=== PATIENT | female | born 1980 | race Caucasian/White ===

== ENCOUNTER → 2019-11-22 13:36 | Outpatient (CLI) | payer MEDICAID, SELFPAY ==
[2019-11-23 08:38] LABS: Covid-19 Nasal PCR Sendout UK Not Detected
== END ==
PROVIDERS: Visit Provider Nurse Practitioner Family
DX: Z03.818 Encounter for observation for suspected exposure to other biological agents ruled out (principal)
CPT/HCPCS: U0003

== ENCOUNTER → 2021-03-28 16:28 | Outpatient (CLI) | payer MEDICAID, SELFPAY | PROVIDERS: Visit Provider Nurse Practitioner | DX: Z20.822 Contact with and (suspected) exposure to COVID-19 (principal) | CPT/HCPCS: C9803; U0003; U0005 ==

== ENCOUNTER 2023-06-16 03:03 | Emergency (ER) | payer MEDICAID, SELFPAY ==
[2023-06-16 03:05] VITALS: BP 128/82; PULSE 61; RESP 20; TEMP 36.4; O2SAT 97; BMI 38.4
[2023-06-16 03:09] VITALS: BP 128/82; PULSE 71; O2SAT 96
--- NOTE | 2023-06-16 03:16 | HMH.EDGENADL ---
Discharge Plan Disposition Patient Disposition: Xfer Short-Term Hosp Condition: Good Referrals Follow up/Referrals: Provider,Referral, MD [Primary Care Provider] - See instructions Activity Restrictions/Add. Instructions Additional Instructions/Restrictions: You were evaluated in the emergency department today. Please proceed directly to [facility] [place] emergency department. You will be evaluated in the emergency department there. Address is [address] [place] [address] Clinical Impressions Clinical Impression: Calculus of right ureter Discharge ED Provider: Concepción Johnson General Adult HPI General Chief complaint: Abdominal Pain Stated complaint: pain right side to back, nausea Time Seen by Provider: 06/16/23 03:10 History of Present Illness HPI narrative: This patient is a 43-year-old female who reports a history of prior hysterectomy and oophorectomy secondary to ovarian cancer presenting to the emergency department with concern for severe right lower quadrant pain radiating to her back as well as nausea that woke her up from sleep along prior to arrival. She also complains of chills. She states it is constant, not positional, and nothing seems to make it better. It gets worse with walking. She was fine last night when she went to bed. No fevers, vomiting, changes in bowel movements, or urinary symptoms. Related Data Allergies Allergy/AdvReac Type Severity Reaction Status Date / Time INGREDIENT: NO KNOWN - NO Allergy Unknown Uncoded 02/27/17 14:34 KNOWN DRUG ALLERGY [facility] Disclaimer: The information contained in this section may have been updated after the patient was seen, as this information can be updated by other users. Social History Smoking Status: Current every day smoker alcohol intake: never current occupational status: employed Travel in the last 8 weeks: None ROS Obtained: Yes All systems reviewed & no additional complaints except as documented Physical Exam General General appearance: alert, in no apparent distress and obese Head Head exam: atraumatic and normocephalic Eye Eye exam: Present normal appearance, PERRL and EOMI ENT ENT exam: Present normal exam, normal oropharynx, mucous membranes moist and normal external ear exam Neck Neck exam: Present normal inspection, full ROM and trachea midline; Absent tenderness Chest Chest inspection: Present normal inspection and symmetric chest wall rise; Absent tenderness Respiratory Respiratory exam: Present normal lung sounds bilaterally; Absent respiratory distress, wheezes, stridor or accessory muscle use Cardiovascular Cardiovascular exam: Present regular rate and normal rhythm Abdominal Exam Abdominal exam: Present soft, tenderness (Right lower quadrant) and normal bowel sounds; Absent distention, guarding, rebound or rigidity Extremities Exam Extremities exam: Present normal inspection, full ROM and normal capillary refill; Absent tenderness or edema Back Exam Back exam: Present full ROM and CVA tenderness (R) Neurological Exam Neurological exam: Present alert, oriented X3, CN II-XII intact and normal gait; Absent motor sensory deficit Psychiatric Psychiatric exam: Present normal affect and normal mood Skin Skin exam: Present warm and dry Medical Decision Making Medical Records Medical records reviewed: Yes I reviewed the patient's medical records. Paul Inquiry Pt receiving controlled substance: No Vital Signs: 06/16/23 03:05 06/16/23 03:09 06/16/23 03:56 Temperature 97.6 F Temperature Source Oral Pulse Rate 71 74 Pulse Rate [Left] 61 Respiratory Rate 20 Blood Pressure 128/82 127/68 Blood Pressure [Right Arm] 128/82 Blood Pressure Mean [Right Arm] 97 Blood Pressure Source [Right Arm] Automatic Cuff Blood Pressure Position [Right Arm] Supine 02 Sat by Pulse Oximetry 97 96 99 Oxygen Delivery Method Room Air 06/16/23 04:30 06/16/23 05:00 Temperature Temperature Source Pulse Rate 63 63 Pulse Rate [Left] Respiratory Rate Blood Pressure 138/77 135/75 Blood Pressure [Right Arm] Blood Pressure Mean [Right Arm] Blood Pressure Source [Right Arm] Blood Pressure Position [Right Arm] 02 Sat by Pulse Oximetry 98 98 Oxygen Delivery Method Lab Data Lab results reviewed: Yes I reviewed the patient's lab results. Lab Results 06/16/23 03:32: Urine Color Brown, Urine Appearance Turbid, Urine pH 6.0, Ur Specific [place] >= 1.030, Urine Protein 1+, Urine Glucose (UA) Negative, Urine Ketones Trace, Urine Blood 3+, Urine Nitrate Positive, Urine Bilirubin 1+ A, Urine Urobilinogen 1.0, Ur Leukocyte Esterase Negative, Urine RBC Tntc, Urine WBC 3-5, Ur Squamous Epith Cells 5-10, Urine Bacteria 3+ 06/16/23 03:50: WBC 7.8, RBC 4.61, Hgb 13.0, Hct 41.0, MCV 88.8, MCH 28.2, MCHC 31.7 L, RDW 15.7, Plt Count 198, MPV 8.1, Neut % (Auto) 63.7, Lymph % (Auto) 28.8, Greene % (Auto) 4.3, Eos % (Auto) 2.2, Baso % (Auto) 0.9, Neut # (Auto) 4.9, Lymph # (Auto) 2.2, Greene # (Auto) 0.3, Eos # (Auto) 0.2, Baso # (Auto) 0.1, Sodium 140, Potassium 3.5, Chloride 110 H, Carbon Dioxide 27, Anion Gap 6.5, BUN 12, Creatinine 0.80, Estimated Creat Clear 165, Estimated GFR 78, Est GFR ( Amer) 94, Glucose 137 H, Calcium 9.0, Total Bilirubin 0.3, AST 30, ALT 32, Alkaline Phosphatase 108, Total Protein 6.4, Albumin 3.7, Globulin 2.7, Albumin/Globulin Ratio 1.4 06/16/23 03:50 06/16/23 03:50 Orders (Tests/Meds): ED MEDICATIONS Generic Name Dose Route Start Last Admin Trade Name Freq PRN Reason Stop Dose Admin Ondansetron HCl 4 mg 06/16/23 05:44 Ondansetron 4mg Odt SL 06/16/23 05:45 ONCE ONE Oxycodone HCl 10 mg 06/16/23 05:44 Oxycodone 5mg Immediate Release Tablet PO 06/16/23 05:45 ONCE ONE Discontinued Medications Generic Name Dose Route Start Last Admin Trade Name Freq PRN Reason Stop Dose Admin Acetaminophen 1,000 mg 06/16/23 03:14 06/16/23 03:28 Acetaminophen 1,000mg/100ml Vial IV 06/16/23 03:15 1,000 mg ONCE ONE Administration Lactated Ringer's 1,000 mls @ 999 mls/hr 06/16/23 03:14 06/16/23 03:28 Lactated Ringer's 1000 Ml Bag IV 06/16/23 04:14 999 mls/hr .Q1H1M ONE Administration Ketorolac Tromethamine 15 mg 06/16/23 03:14 06/16/23 03:27 Ketorolac 30mg/Ml Vial IV 06/16/23 03:15 15 mg ONCE ONE Administration Morphine Sulfate 4 mg 06/16/23 03:52 06/16/23 03:57 Morphine 4mg/Ml Syringe IV 06/16/23 03:53 4 mg ONCE ONE Administration Ondansetron HCl 4 mg 06/16/23 03:15 06/16/23 03:28 Ondansetron 4mg/2ml Vial IV 06/16/23 03:16 4 mg ONCE ONE Administration ORDERS Category Date Time Status CT abdomen pelvis wo con Stat Cat Scan 06/16/23 03:31 Completed Complete Blood Count Auto Diff Stat Lab 06/16/23 03:50 Completed Comprehensive Metabolic Panel Stat Lab 06/16/23 03:50 Completed Urinalysis and Microscopic Stat Lab 06/16/23 03:32 Completed Urine Culture Stat Micro 06/16/23 03:32 Received Medical Decision Narrative: In summary, this patient is a 43-year-old female presenting to the Emergency Department for evaluation of right lower quadrant pain radiating to her right back. Differential diagnoses considered include but are not limited to appendicitis, ureterolithiasis, pyelonephritis, colitis, constipation. Ruling out the most morbid conditions drove assessment. On exam, the patient is uncomfortable appearing with right-sided abdominal and CVA tenderness. Vitals are normal on cardiac telemetry. Workup included CBC, CMP, urinalysis, and CT scan of the abdomen pelvis. She was given a bolus of IV fluids as well as IV Toradol, acetaminophen, and Zofran for symptomatic improvement. I independently interpreted CT scan prior to the radiologist read and noted concern for proximal right ureteral stone with hydronephrosis. I measured at 6 mm. I also noted a large hypoechoic liver lesion. Please see their read for final interpretation. labs were obtained that demonstrated no leukocytosis, normal creatinine. Patient has 3+ blood in her urine. She does have positive nitrates, however urine is contaminated with 5-10 squamous cells. Leukocyte esterase negative. Urine culture was sent and is pending. On reassessment, patient had minimal improvement after administration of images above. She was then given IV morphine. This did control her pain briefly, but then she had significant recurrence of pain and was very uncomfortable again. At this time, decision was made to order oral oxycodone 10 mg as well as oral Zofran and ODT. Overall, patient has a large proximal stone with significant symptoms. We do not have urology here, so we called [facility] to see about arranging close management for the patient. They advised they do not have urology coverage until Sunday. Given this, we called [facility] who advised that they could accept the patient to the ED for evaluation. I had an interactive discussion with Dr. Rodríguez who is the accepting provider. Patient is nontoxic and has reassuring vital signs. I advised her that we could send her to [facility] by ambulance for further evaluation and management so that she can be monitored and could receive fluids and medications as needed during transport, however she advised that she would rather go personal vehicle. Her is going to drive her. She understands the risks of delaying transfer and was instructed to proceed directly there. I advised that she remain NPO. Patient left the ED in stable condition with plan to proceed directly to [facility] emergency department. Critical Care Critical Care Time Critical Care Time: No
[2023-06-16] MEDS: KETOROLAC 30MG/ML VIAL 15 MG IV (03:27)
[2023-06-16] MEDS: ACETAMINOPHEN 1,000MG/100ML VIAL 1000 MG IV (03:28)
[2023-06-16] MEDS: LACTATED RINGERS 1000ML 1,000 ML 999 ML IV (03:28)
[2023-06-16] MEDS: ONDANSETRON 4MG/2ML VIAL 4 MG IV (03:28)
--- NOTE | 2023-06-16 03:31 | CT_ITS ---
PROCEDURE INFORMATION: Exam: CT Abdomen And Pelvis Without Contrast Exam date and time: 06/16/2023 3:41 AM Age: 43 years old Clinical indication: Abdominal pain; Flank; Right lower quadrant (rlq); Additional info: R flank/rlq pain TECHNIQUE: Imaging protocol: Computed tomography of the abdomen and pelvis without contrast. Radiation optimization: All CT scans at this facility use at least one of these dose optimization techniques: automated exposure control; mA and/or kV adjustment per patient size (includes targeted exams where dose is matched to clinical indication); or iterative reconstruction. COMPARISON: No relevant prior studies available. FINDINGS: Lungs: Bibasilar scarring/atelectasis. Pleural spaces: Sequela of pleural granulomatous disease. Heart: Base of heart is unremarkable as visualized. Liver: Multiple large hepatic hypodensities with regions measuring slightly above water, for example series 1002, image 37. Largest hypodensity measures 11.3 x 5.3 x 8.9 cm (series 3, image 22; series 1002, image 37). Gallbladder and bile ducts: Cholelithiasis without evidence for cholecystitis. Pancreas: Normal. No ductal dilation. Spleen: Incidental splenule is noted. Ill-defined hypodensities within the spleen, measuring slightly above water, largest measures 4.7 x 6.8 cm. Adrenal glands: Normal. No mass. Kidneys and ureters: Benign right renal cyst. Punctate nonobstructive posterior cortex right lower renal pole nephrolith. There is moderate right hydronephrosis. Just beyond the right ureteropelvic junction there is a calcified 6 mm stone (series 3, image 60). Stomach and bowel: Mild colonic diverticulosis without evidence of diverticulitis. Appendix: No evidence of appendicitis. Intraperitoneal space: Unremarkable. No free air. No significant fluid collection. Vasculature: Multiple pelvic phleboliths are noted. Lymph nodes: Unremarkable. No enlarged lymph nodes. Urinary bladder: Urinary bladder is decompressed. Reproductive: Status post hysterectomy. Bones/joints: Mild scattered degenerative change of the visualized osseous structures. Soft tissues: Unremarkable. IMPRESSION: 1. Obstructing proximal right renal stone at the right ureteropelvic junction with upstream moderate hydronephrosis. 2. Hypodensities of the liver and spleen, without aggressive features, however recommend multiphase examination (MRI versus CT) for definitive characterization. 3. Additional nonacute findings as above. COMMENTS: Consistent with the [place] [employer]'s Incidental Findings Committee white paper (J Am Shant Radiol 2018): Any incidental renal lesion less than 1 cm or classified as too small to characterize, or any incidental cystic renal lesion characterized as simple-appearing, is likely benign. No follow-up imaging is recommended for these lesions per consensus recommendations based on imaging criteria.
[2023-06-16 03:37] LABS: Appearance,Urine TURBID (Clear); Blood, Urine 3+ (Negative); Color,Urine BROWN (Yellow); Glucose,Urine (UA) Negative (Negative); Ketones,Urine TRACE (Negative); Leukocyte Esterase,Urine Negative (Negative); Microscopic, Urine URINE MICROSCOPIC (MICROSCOPIC); Nitrate,Urine POSITIVE (Negative); Protein,Urine 1+ (Negative); Specific Gravity, Urine >= 1.030 (1.005-1.030)
[2023-06-16 03:40] LABS: Bilirubin,Urine 1+ (Negative)
[2023-06-16 03:44] LABS: RBC,Urine TNTC #/hpf (0-3)
[2023-06-16 03:45] LABS: Bacteria,Urine 3+ /lpf
[2023-06-16 03:56] VITALS: BP 127/68; PULSE 74; O2SAT 99
[2023-06-16] MEDS: MORPHINE 4MG/ML SYRINGE 4 MG IV (03:57)
[2023-06-16 04:00] LABS: Basophils # 0.1 K/mm3 (0-0.2); Basophils % 0.9 % (0.1-2.0); Eosinophils # 0.2 K/mm3 (0.0-0.4); Eosinophils % 2.2 % (0.1-12.0); Lymphocytes # 2.2 K/mm3 (0.7-4.5); Lymphocytes % 28.8 % (10-50); Mean Corpuscular HGB Conc 31.7 g/dL (31.8-35.4); Mean Corpuscular Hemoglobin 28.2 pg (27.0-31.2); Mean Corpuscular Volume 88.8 fl (81-99); Mean Platelet Volume 8.1 fl (7.4-10.4); Monocytes # 0.3 K/mm3 (0.1-1.0); Monocytes % 4.3 % (1.7-9.3); Neutrophils # 4.9 K/mm3 (1.8-7.8); Neutrophils % 63.7 % (37.0-80.0); Platelet Count 198 K/mm3 (142-424); Red Blood Count 4.61 M/mm3 (4.20-5.40); Red Cell Distribution Width 15.7 % (11.5-17.5); White Blood Count 7.8 K/mm3 (4.8-10.8)
[2023-06-16 04:06] LABS: Chloride 110 mmol/L (98-107); Potassium 3.5 mmoL/L (3.5-5.1); Sodium 140 mmol/L (136-145)
[2023-06-16 04:08] LABS: Blood Urea Nitrogen 12 mg/dl (7-17); Creatinine Clearance Estimated 165 mL/min (50-200); Estimated Glomerular Filt Rate 78 ml/min (>60); GFR (African American) 94 ML/MIN (>60)
[2023-06-16 04:09] LABS: Alanine Aminotransferase 32 U/L (12-78); Albumin Level 3.7 g/dl (3.5-5.0); Albumin/Globulin Ratio 1.4 (1.1-1.8); Alkaline Phosphatase 108 U/L (38-126); Anion Gap 6.5 mEq/L (5-15); Aspartate Amino Transferase 30 U/L (14-36); Bilirubin,Total 0.3 mg/dl (0.2-1.3); Carbon Dioxide 27 mmol/L (22.0-30.0); Globulin 2.7 g/dL (1.3-3.2); Glucose 137 mg/dl (74-100); Total Protein,Serum 6.4 g/dl (6.3-8.2)
[2023-06-16 04:30] VITALS: BP 138/77; PULSE 63; O2SAT 98
--- NOTE | 2023-06-16 04:59 | PC.NURSE ---
Contacted [facility] in regards to a Urology consult for a follow up appointment.
[2023-06-16 05:00] VITALS: BP 135/75; PULSE 63; O2SAT 98
--- NOTE | 2023-06-16 05:07 | PC.NURSE ---
follow up from previous note [facility] advised they did not have any urology coverage.
--- NOTE | 2023-06-16 05:12 | PC.NURSE ---
Contacted in regards for a urology consult, they advised they would call us back.
--- NOTE | 2023-06-16 05:44 | PC.NURSE ---
on phone with Luciano
[2023-06-16] MEDS: OXYCODONE 5MG IMMEDIATE RELEASE TABLET 10 MG PO (05:51)
[2023-06-16] MEDS: ONDANSETRON 4MG ODT 4 MG SL (05:51)
[2023-06-16 06:01] VITALS: BP 149/79; PULSE 62; RESP 16; TEMP 36.4; O2SAT 98
== END 2023-06-16 06:04 | disposition short-term general hospital (02) ==
PROVIDERS: Emergency Provider Emergency Medicine
DX: N13.0 Hydronephrosis with ureteropelvic junction obstruction (principal); R10.31 Right lower quadrant pain; B96.89 Other specified bacterial agents as the cause of diseases classified elsewhere; R11.0 Nausea; K76.9 Liver disease, unspecified; F17.210 Nicotine dependence, cigarettes, uncomplicated
CPT/HCPCS: 74176; 80053; 81001; 85025; 87086; 96361; 96374; 96375; 99285; J0131; J2405

== ENCOUNTER 2024-10-27 18:41 | Observation (INO) | payer MEDICAID, SELFPAY ==
[2024-10-27] VITALS (7 sets, daily range): BP systolic 125–143; BP diastolic 60–77; PULSE 102–134; RESP 18–32; TEMP 37.3; O2SAT 91–95; BMI 39.9
--- OUTSIDE RECORDS SUMMARY | 2024-10-27 20:18 | XMS_ITS | Clinical Summary ---
Author Organization [facility] Address [address] [place] [address] Care Team Providers Care Astronautical Engineer Name Role Phone Pcp, No Primary Care Provider Unavailabl e Allergies Active Allergy Reactions Criticality Noted Date Comments Carboplatin Nausea,Other - pleas e document in the comment field Low 02/21/2018 sweating, dizzy, diarrhea, shortness of breath Medications ketorolac (Toradol) 10 MG tablet Take 1 tablet (10 mg) by mouth every 6 (six) hours if needed for moderate pain. 20 tablet 06/16/2023 Active Family History Medical History Relation Name Comments Hypertension Father Family history of hypertension Breast cancer Maternal Grandmother FH: br east cancer Throat cancer Other 1 FH: throat can cer Throat cancer Other 2 FH: throat can cer Bone cancer Paternal Grandfather Family history of bone cancer Breast cancer Paternal Grandmother FH: br east cancer Relation Name Status Comments Father Maternal Grandmother Other 1 Other 2 Paternal Grandfather Paternal Grandmother Social History Tobacco Use Types Packs/Day Years Used Date Smoking Tobacco: Every Day Comments Unknown Sex and Gender Information Value Date Recorded Sex Assigned at Not on file Legal Sex Female 7:49 PM EDT Gender Identity Not on file Sexual Orientation Not on file Last Filed Vital Signs Vital Sign Reading Time Taken Comments Blood Pressure 114/64 06/16/2023 12:46 PM EDT Pulse 64 06/16/2023 12:46 PM EDT Temperature 36.3 C (97.4 F) 06/16/2023 12:46 PM EDT Respiratory Rate 20 06/16/2023 12:46 PM EDT Oxygen Saturation 95% 06/16/2023 12:46 PM EDT Inhaled Oxygen Concentration - - Weight 118 kg (260 lb) 06/16/2023 7:07 AM EDT Height 175.3 cm (5' 9 ) 06/16/2023 7:07 AM EDT Body Mass Index 38.4 06/16/2023 7:07 AM EDT Plan of Treatment Health Maintenance Due Date Last Done Comments [facility]-Depression Screening 1978 [facility]-/Child/Adol SDOH Screenings 1978 [facility]-Obesity Intervention 1984 [facility]- SDOH Screenings 1996 [facility]-Adult SDOH Screenings 1996 [facility]-DTaP,Tdap,and Td Vaccine s (1 - Tdap) 1997 [facility]-Hepatitis B Vaccines (1 of 3 - 19+ 3-dose series) 1997 CT Colonography 2023 Colonoscopy 2023 FIT-DNA 2023 FIT 2023 FOBT 2023 Sigmoidoscopy 2023 [facility]-Colorectal Cancer Screening 2023 [id number] Vaccine ( - season) 2023 [facility]-Influenza Vaccine (#1) 2024 [facility]-Zoster Vaccines (1 of 2) 2028 [facility]-Hepatitis C Screening Completed 2017, 11/06/2017 [facility]-HIV Screening Completed 06/16/2023, 12/16/2017 HPV Vaccines Aged Out No longer eligi ble based on patient's age to complete this topic [facility]-HIB Vaccines Aged Out No longer e ligible based on patient's age to complete this topic [facility]-Hepatitis A Vaccines Aged Out No longer eligible based on patient's age to complete this topic [facility]-IPV Vaccines Aged Out No longer e ligible based on patient's age to complete this topic [facility]-Pneumococcal Vaccine: Pediatrics (0 to 5 Years) and At-Risk Patients (6 to 49 Years) Aged Out No longer eligible b ased on patient's age to complete this topic [facility]-Rotavirus Vaccines Aged Out No lo nger eligible based on patient's age to complete this topic Procedures Procedure Name Priority Date/Time Associated Diagnosis Comments ED HIV 1/2 ANTIBODY/ANTIGEN SCREEN WITH REFLEX TO HIV I/II DIFFERENTIATION STAT 06/16/2023 8:03 AM EDT HEPATITIS C ANTIBODY - ED W/REFLEX TO HCV QUANT PCR Routine 12/16/2017 9:07 PM EDT from Last 3 Months or Most Recently Relevant to Health Maintenance Results * ED HIV 1/2 Antibody/Antigen Screen w/Reflex to HIV 1/2 Differentiation (06/16/2023 8:03 AM EDT) HIV 1 & 2 Antibody/Antigen Screen Non Reactive Non Reactive 06/16/2023 9:02 AM EDT [facility] Comment:Screening for HIV 1 & 2 antibodies, and P24 antigen is NONREACTIVE. No confirmatory testing is required. Blood Venous blood specimen / Unknown Venipuncture / Unknown 06/16/2023 8:03 AM EDT 06/16/2023 8:20 AM EDT us Elliott Bravo MD LAB BLOOD ORDERABLES Final Resul t [facility] [address] [place] [address] * Williamson Hepatitis C Antibody (12/16/2017 9:07 PM EDT) [place] Hepatitis C Ab BEING REPEATED TO CONFIRM [facility]QUEST 12/16/2017 9:07 PM EDT 12/16/2017 9:17 PM EDT us Emmanuelle Thomason MD LAB BLOOD ORDERABLES Final Resul t SUNQUEST from Last 3 Months or Most Recently Relevant to Health Maintenance [place] [id number] Care Teams Astronautical Engineer Relationship Specialty Start Date End Date Pcp, [facility] [address] [place] [address] PCP - General Family Medicine 06/16/23
[2024-10-27] MEDS: ONDANSETRON 4MG/2ML VIAL 4 MG IV (20:35)
--- NOTE | 2024-10-27 20:36 | ECG_ITS ---
APPROVED REPORT Exam: Resting ECG HR:131 bpm ECG Measurements Heart Rate 131 AXES NV 122 P 73 QRSd 94 QRS 50 QT 318 T 50 QTc 395 Conclusion SINUS TACHYCARDIA INCOMPLETE RIGHT BUNDLE BRANCH BLOCK [90+ ms QRS DURATION, TERMINAL R IN V1/V2, 40+ ms S IN I/aVL/V4/V5/V6] MINIMAL ST DEPRESSION [0.025+ mV ST DEPRESSION] ABNORMAL RHYTHM ECG UNCONFIRMED REPORT Sinus tachycardia. Incomplete right bundle branch block. No ST elevation or depression. Electronically signed by : JOS REARDON, 10/28/2024 14:45:20
--- NOTE | 2024-10-27 20:38 | ED_ITS ---
Discharge Plan Disposition Patient Disposition: Admitted Clinical Impressions Clinical Impression: Sepsis, Cholelithiasis, Nausea & vomiting, Hyperbilirubinemia Discharge ED Provider: Paulino Kirkpatrick General Adult HPI General Chief complaint: Weakness Stated complaint: sweats,vomiting Time Seen by Provider: 10/27/24 20:24 Mode of Arrival: Ambulatory Source of Information: Patient Description of Symptoms (Recalled from ER Triage Doc. by RN): PATIENT FEELS LIKE SHE IS DEHYDRATED. REPORTS WEAKNESS. HASN'T HAD A BM FOR 3 DAYS. REPORTS RECENT FEVER AND VOMITING. UNABLE TO EAT. 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 Patient states that over the last 2 days, she has had multiple episodes of vomiting and inability to tolerate oral intake. She has tried Pedialyte and water. She denies any chest pain or abdominal pain at this time. She does state that she has not had a bowel movement in 3 days. She denies any dysuria or hematuria. She has not had any fevers that she is aware of. Related Data Allergies Allergy/AdvReac Type Severity Reaction Status Date / Time INGREDIENT: NO KNOWN - NO Allergy Unknown Uncoded 02/27/17 14:34 KNOWN DRUG ALLERGY [facility] Disclaimer: The information contained in this section may have been updated after the patient was seen, as this information can be updated by other users. Social History (Updated 06/16/23 @ 05:49 by Concepción Johnson DO) Smoking Status: Current every day smoker alcohol intake: never current occupational status: employed Travel in the last 8 weeks?: None Have you lived/traveled outside [place] in past 30 days?: No Contact w/someone who lives/traveled outside US past 30 days?: No Exposure to someone with infectious disease in past 14 days?: No Do you have a fever (greater than 100.4 F or 38 C)?: No Have you tested positive for COVID-19?: No Exposed to someone with COVID-19 in past 14 days?: No Do you have a sore throat?: No Do you have a cough?: No Do you have any weakness?: No Do you have any diarrhea?: No Are you experiencing any unusual bleeding?: No Do you have any muscle aches/pain?: No Do you have any abdominal pain?: No Are you experiencing loss of taste or smell?: No ROS Obtained: Yes Systems reviewed as appropriate & no additional complaints except as documented Physical Exam General General appearance: alert, in no apparent distress and obese Comment: Ill appearing Head Head exam: atraumatic Eye Eye exam: Present normal appearance ENT ENT exam: Present mucous membranes dry and normal external ear exam Neck Neck exam: Present full ROM Chest Chest inspection: Present symmetric chest wall rise Respiratory Respiratory exam: Present normal lung sounds bilaterally; Absent respiratory distress, wheezes or stridor Cardiovascular Cardiovascular exam: Present normal rhythm and tachycardia Abdominal Exam Abdominal exam: Present soft and tenderness (epigastric); Absent guarding Extremities Exam Extremities exam: Present normal inspection Back Exam Back exam: Present normal inspection Neurological Exam Neurological exam: Present alert and oriented X3 Psychiatric Psychiatric exam: Present normal affect Skin Skin exam: Present warm and dry Medical Decision Making Medical Records Screening: Per USPSTF and CDC recommendations, given the prevalence of disease in our region, it is our hospital?s policy to screen for HIV and viral Hepatitis for all patients aged 18 and over and those with ongoing risk factors. Paul Inquiry Pt receiving controlled substance: No Vital Signs: 10/27/24 19:52 10/27/24 20:16 10/27/24 20:30 Temperature 99.1 F Temperature Source Oral Pulse Rate 129 H 121 H Pulse Rate [Left Brachial] 134 H Respiratory Rate 18 32 H Blood Pressure 143/77 H 128/65 Blood Pressure [Left Arm] 138/74 Blood Pressure Mean [Left Arm] 95 Blood Pressure Source [Left Arm] Automatic Cuff Blood Pressure Position [Left Arm] Sitting 02 Sat by Pulse Oximetry 94 L 92 L 91 L Oxygen Delivery Method Room Air 10/27/24 21:00 Temperature Temperature Source Pulse Rate Pulse Rate [Left Brachial] Respiratory Rate 29 H Blood Pressure 127/60 Blood Pressure [Left Arm] Blood Pressure Mean [Left Arm] Blood Pressure Source [Left Arm] Blood Pressure Position [Left Arm] 02 Sat by Pulse Oximetry Oxygen Delivery Method Lab Data Lab Results 10/27/24 20:27: WBC 14.5 H, RBC 4.48, Hgb 12.0 L, Hct 36.0 L, MCV 80.4 L, MCH 26.8 L, MCHC 33.3, RDW 15.6, Plt Count 200, MPV 9.9, Neut % (Auto) 79.4, Lymph % (Auto) 11.0, [place] % (Auto) 8.7, Eos % (Auto) 0.0 L, Baso % (Auto) 0.3, Neut # (Auto) 11.6 H, Lymph # (Auto) 1.6, [place] # (Auto) 1.3 H, Eos # (Auto) 0.0, Baso # (Auto) 0.0, VBG pH 7.46 H, VBG pCO2 33.8 L, VBG pO2 58.0 H, VBG HCO3 23.2, VBG Total CO2 24.3, VBG O2 Saturation 91.8 H, VBG Base Excess -0.7, VBG Lactic Acid 1.7, Sodium 131 L, Potassium 4.0, Chloride 99, Carbon Dioxide 22, Anion Gap 14.0, BUN 15, Creatinine 0.80, Estimated Creat Clear 170, Estimated GFR 77, Est GFR ( Amer) 93, Glucose 121 H, Calcium 8.8, Magnesium 1.9, Total Bilirubin 2.2 H, AST 89 H, ALT 50, Alkaline Phosphatase 266 H, Total Protein 8.0, Albumin 4.2, Globulin 3.8 H, Albumin/Globulin Ratio 1.1, Lipase 33, Serum HCG, Qual Negative, HCV Ab YOLY w/Rflx PCR Qn Negative 10/27/24 21:49: Urine Color Yellow, Urine Appearance Clear, Urine pH 6.0, Ur Specific [place] 1.020, Urine Protein 2+ A, Urine Glucose (UA) Trace, Urine Ketones 2+, Urine Blood 1+ A, Urine Nitrate Positive A, Urine Bilirubin 2+ A, Urine Urobilinogen 2.0, Ur Leukocyte Esterase Negative, Urine RBC None, Urine WBC 5-10, Ur Squamous Epith Cells 5-10, Amorphous Sediment 2+ 10/27/24 20:27 10/27/24 20:27 Orders (Tests/Meds): ED MEDICATIONS Generic Name Dose Route Start Last Admin Trade Name Freq PRN Reason Stop Dose Admin Vancomycin HCl 2,000 mg/ 500 mls @ 250 mls/hr 10/27/24 23:15 Sodium Chloride IV 10/28/24 01:14 ONCE ONE Miscellaneous 1 each 10/27/24 23:00 10/27/24 23:19 Vancomycin Consult Request NOTAPPLIC 11/26/24 22:59 Not Given CONSULT [facility]Y [facility] Sodium Chloride 10 ml 10/27/24 21:35 10/27/24 21:36 Sodium Chloride 0.9% 10ml Syr (Rad Only) IV 11/26/24 21:34 10 ml NEEDED PRN Administration Maintain IV Site Discontinued Medications Generic Name Dose Route Start Last Admin Trade Name Sandi PRN Reason Stop Dose Admin Lactated Ringer's 500 mls @ 999 mls/hr 10/27/24 20:38 10/27/24 21:58 Lactated Ringer's 1000 Ml Bag IV 10/27/24 21:08 Infused .Q31M ONE Infusion Lactated Ringer's 1,000 mls @ 999 mls/hr 10/27/24 22:10 10/27/24 22:34 Lactated Ringer's 1000 Ml Bag IV 10/27/24 23:10 999 mls/hr .Q1H1M ONE Administration Piperacillin Sod/Tazobactam 100 mls @ 200 mls/hr 10/27/24 23:00 10/27/24 23:17 Sod 4.5 gm/ Sodium Chloride IV 10/27/24 23:29 200 mls/hr ONCE ONE Administration Iopamidol 75 ml 10/27/24 21:35 10/27/24 21:36 Iopamidol-370 (76%);100ml Bottle IV 10/27/24 21:36 75 ml ONCE ONE Administration Ondansetron HCl 4 mg 10/27/24 20:28 10/27/24 20:35 Ondansetron 4mg/2ml Vial IV 10/27/24 20:29 4 mg ONCE ONE Administration ORDERS Category Date Time Status CT abdomen pelvis w con Stat Cat Scan 10/27/24 20:43 Completed CXR --portable [XR chest portable] Stat Exams 10/27/24 20:43 Completed Complete Blood Count Auto Diff Stat Lab 10/27/24 20:27 Completed Comprehensive Metabolic Panel Stat Lab 10/27/24 20:27 Completed Gamma Glutamyl Transpeptidase Stat Lab 10/27/24 23:13 Ordered HIV Combo Routine Lab 10/27/24 20:27 Received Hepatitis C Ab Qual. W/ RFX Routine Lab 10/27/24 20:27 Completed Lipase Stat Lab 10/27/24 20:27 Completed Magnesium Stat Lab 10/27/24 20:27 Completed Rapid PCR Covid and Flu A/B Stat Lab 10/27/24 22:35 Received Serum [HCG Qualitative, Serum] Stat Lab 10/27/24 20:27 Completed Urinalysis and Microscopic Stat Lab 10/27/24 21:49 Completed Blood Culture Stat Micro 10/27/24 22:53 Received Urine Culture Stat Micro 10/27/24 21:49 Received VBG [Venous Blood Gas] Stat RT 10/27/24 20:27 Completed ECG Data Tracing #1: I reviewed this ECG and interpreted as documented below: Sinus tachycardia, No ST elevation or depression. QTc normal 395. 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 Patient states that over the last 2 days, she has had multiple episodes of vomiting and inability to tolerate oral intake. She has tried Pedialyte and water. She denies any chest pain or abdominal pain at this time. She does state that she has not had a bowel movement in 3 days. She denies any dysuria or hematuria. She has not had any fevers that she is aware of. On arrival, patient is normotensive blood pressure 138/74, tachycardic with heart rate of 134, borderline febrile with temperature of 99.1 ?F. Oxygen saturation 94 on room air. Physical exam, as stated above, reveals an ill- appearing female in no acute respiratory distress. GCS 15. Cardiopulmonary exam revealed tachycardia but no murmurs, wheezing, rales or rhonchi. Abdomen is soft and nonperitonitic. She has tenderness in the epigastric region. Differential diagnosis includes, but is not limited to: Dehydration, acute pancreatitis, cholecystitis, choledocholithiasis, viral gastritis, peptic ulcer disease, pneumonia, urinary tract infection, among others. The most morbid conditions were considered and workup was based on these. Initial workup in the emergency room included: CMP, lipase, VBG, serum test, magnesium level, CBC with differential, EKG, CT abdomen/pelvis with IV contrast, 1 L lactated ringer, 4 mg of IV Zofran lipase, urinalysis. EKG interpreted by me personally. Sinus tachycardia. Incomplete right bundle branch block. No ST elevation or depression. QTc normal at 395. Laboratory workup showed leukocytosis of 14.5 with 79% absolute neutrophils. Mild anemia with hemoglobin of 12, hematocrit of 36 (baseline appears to be hemoglobin of 13), VBG with normal lactate of 1.7. pCO2 33.8 with mild respiratory alkalosis With pH of 7.46. patient does have mild hyponatremia with sodium 131 but electrolytes and kidney function within normal range otherwise. Patient's bilirubin is elevated at 2.2 with mild elevation of AST to 89 and alk phos elevated at 266. ALT is normal at 50. Magnesium is normal at 1.9. Negative test. Urine shows 2+ bilirubin, positive nitrate and 1+ blood as well as 2+ protein. 5-10 white blood cells are present. No red blood cells on microscopy. Chest x-ray interpreted by me personally. No focal consolidation or pneumothorax or widening the mediastinum. Right basilar atelectasis. See final radiology report for details CT abdomen pelvis was interpreted by me personally. Patient has hypoattenuating masses in the liver and spleen that were present on previous imaging in 2023, however they do appear enlarged compared to that study. No other acute findings within the abdomen or pelvis. See final radiology report for details. Patient does have a gallstone within the gallbladder but no pericholecystic fluid or gallbladder wall thickening. No common bile duct dilation. Despite 1 L of fluid, patient is still tachycardic with heart rate in the 120s. Added additional liter of lactated ringer as well as blood cultures due to concern for septicemia from unknown source given patient's of a white blood cell count and continued tachycardia. Patient does have elevated bilirubin and mildly elevated liver enzymes, however there is no evidence of obstructing stone on CT imaging. I discussed with patient about her liver and splenic lesions and she states that she has not followed up with her oncologist in the [facility] in several years but would like to get established with an oncologist more locally here in [facility]. I did explain that due to concern for sepsis, we will need to initiate IV antibiotics and admit her to the hospital tonight and she was in agreement with this plan. Patient was started on IV vancomycin and Zosyn. I then discussed patient's case with the hospitalist team and they agreed to admit the patient for further management. Critical Care Critical Care Time Critical Care Time: No
[2024-10-27 20:41] LABS: Hematocrit 36.0 % (37.0-47.0); Hemoglobin 12.0 g/dL (12.2-16.2); Immature Granulocytes % 0.6 %; Mean Corpuscular HGB Conc 33.3 g/dL (31.8-35.4); Mean Corpuscular Hemoglobin 26.8 pg (27.0-31.2); Mean Corpuscular Volume 80.4 fl (81-99); Nucleated Red Blood Cells % 0 %; Platelet Count 200 K/mm3 (142-424); Red Blood Count 4.48 M/mm3 (4.20-5.40); Red Cell Distribution Width-SD 45.7 fL; White Blood Count 14.5 K/mm3 (4.8-10.8)
--- NOTE | 2024-10-27 20:43 | XR_ITS ---
PROCEDURE INFORMATION: Exam: XR Chest Exam date and time: 10/27/2024 9:24 PM Age: 44 years old Clinical indication: Other: N/v; Additional info: Epigastric pain, n/v TECHNIQUE: Imaging protocol: Radiologic exam of the chest. Views: 1 view. COMPARISON: CT ABDOMEN PELVIS WO CON 06/16/2023 3:41 AM FINDINGS: Lungs: Linear density at the right lung base consistent with subsegmental atelectasis and/or scarring. Pleural spaces: Unremarkable. No pleural effusion. No pneumothorax. Heart/Mediastinum: Unremarkable. No cardiomegaly. Vasculature: Unremarkable. Diaphragm: There is elevation of the right hemidiaphragm. Bones/joints: Unremarkable. IMPRESSION: Elevated right hemidiaphragm new since the CT exam 06/16/2023. Right basilar atelectasis and/or scarring.
--- NOTE | 2024-10-27 20:43 | CT_ITS ---
PROCEDURE INFORMATION: Exam: CT Abdomen And Pelvis With Contrast Exam date and time: 10/27/2024 9:29 PM Age: 44 years old Clinical indication: Abdominal pain; Epigastric; Additional info: Epigastric pain, n/v TECHNIQUE: Imaging protocol: Computed tomography of the abdomen and pelvis with contrast. Radiation optimization: All CT scans at this facility use at least one of these dose optimization techniques: automated exposure control; mA and/or kV adjustment per patient size (includes targeted exams where dose is matched to clinical indication); or iterative reconstruction. Contrast material: ISOVUE; Contrast volume: 75 ml; Contrast route: IV; COMPARISON: CT ABDOMEN PELVIS WO CON 06/16/2023 3:41 AM FINDINGS: Lungs: There is right basilar atelectasis. Calcified granulomas at the lung bases. Diaphragm: Elevated right hemidiaphragm Liver: There is an enlarging mass in the right hepatic dome measuring approximately 16 x 13 x 11 cm in AP by transverse by longitudinal dimensions. Prior reported measurements are 11.3 x 5.3 x 8.9 cm. There is heterogeneous enhancement of the lesion with areas of non enhancement remaining on delayed imaging. This accounts for elevation of the right hemidiaphragm. The liver is overall enlarged. Gallbladder and biliary ducts: Cholelithiasis is present without findings of cholecystitis. No gallbladder wall thickening or pericholecystic fluid collection. There is no biliary ductal dilation. Pancreas: Normal. No ductal dilation. Spleen: There is a heterogeneously enhancing lesion posterosuperior aspect of the spleen having dimensions of approximately 5.6 x 7.8 x 8.0 cm. Previous axial dimensions are 4.7 x 6.8 cm. Adrenal glands: There is a stable subcentimeter left adrenal nodule. The right adrenal gland is unremarkable. Kidneys and ureters: No hydronephrosis or stone disease. There are several renal cortical hypodensities bilaterally which do not demonstrate enhancement on delayed imaging. These are most consistent with small cysts. Stomach and bowel: There are few scattered left colon diverticula. No acute inflammation. No bowel obstruction. No mucosal thickening. Appendix: No evidence of appendicitis. Intraperitoneal space: Unremarkable. No free air. No significant fluid collection. Vasculature: Unremarkable. No abdominal aortic aneurysm. Lymph nodes: Calcified bilateral hilar and mediastinal lymph nodes. Numerous small periaortic and aortocaval lymph nodes similar to the prior exam. Urinary bladder: Unremarkable as visualized. Reproductive: The uterus is absent. Bones/joints: There are mild degenerative changes of the spine. No acute fracture. Soft tissues: Unremarkable. IMPRESSION: 1. There are heterogeneously enhancing hepatic and splenic masses which have increased in size since the prior exam 06/16/2023. This is particularly evident regarding the hepatic mass. The lesions are not fully evaluated on this examination. Correlation with any interval MR imaging is recommended. If there has been no interval imaging, further evaluation with nonemergent unenhanced and enhanced MR imaging is recommended. 2. Right basilar atelectasis. 3. Findings within the chest consistent with prior granulomatous exposure. 4. Other nonemergent findings as noted. COMMENTS: Consistent with the [employer]'s Incidental Findings Committee white paper (J Am Shant Radiol 2018): Any incidental renal lesion less than 1 cm or classified as too small to characterize, or any incidental cystic renal lesion characterized as simple-appearing, is likely benign. No follow-up imaging is recommended for these lesions per consensus recommendations based on imaging criteria.
[2024-10-27 20:50] LABS: Lactate Venous 1.7 mmol/L (0.4-2.0); VBG HCO3 23.2 mmol/L (23-30); VBG PCO2 33.8 mmol/L (35-51); VBG PH 7.46 mmol/L (7.31-7.41); VBG PO2 58.0 mmol/L (28-40)
[2024-10-27 21:12] LABS: HCG Qualitative, Serum Negative (Negative)
[2024-10-27 21:13] LABS: Albumin Level 4.2 g/dl (3.5-5.0); Chloride 99 mmol/L (98-107); Potassium 4.0 mmoL/L (3.5-5.1); Sodium 131 mmol/L (136-145)
[2024-10-27 21:15] LABS: Alanine Aminotransferase 50 U/L (12-78); Aspartate Amino Transferase 89 U/L (14-36); Blood Urea Nitrogen 15 mg/dl (7-17); Creatinine Clearance Estimated 170 mL/min (50-200); Creatinine,Serum 0.80 mg/dl (0.52-1.04); Estimated Glomerular Filt Rate 77 ml/min (>60); GFR (African American) 93 ML/MIN (>60)
[2024-10-27 21:16] LABS: Albumin/Globulin Ratio 1.1 (1.1-1.8); Alkaline Phosphatase 266 U/L (38-126); Anion Gap 14.0 mEq/L (5-15); Bilirubin,Total 2.2 mg/dl (0.2-1.3); Calcium 8.8 mg/dl (8.4-10.2); Carbon Dioxide 22 mmol/L (22.0-30.0); Globulin 3.8 g/dL (1.3-3.2); Glucose 121 mg/dl (74-100); Lipase 33 U/L (23-300); Total Protein,Serum 8.0 g/dl (6.3-8.2)
[2024-10-27] MEDS: LACTATED RINGERS 1000ML 500 ML 999 ML IV (21:24)
[2024-10-27] MEDS: SODIUM CHLORIDE 0.9% 10ML SYR (RAD ONLY) 10 ML IV (21:36)
[2024-10-27] MEDS: IOPAMIDOL-370 (76%);100ML BOTTLE 75 ML IV (21:36)
[2024-10-27 21:41] LABS: Magnesium 1.9 mg/dl (1.6-2.3)
[2024-10-27 21:52] LABS: Microscopic, Urine URINE MICROSCOPIC (MICROSCOPIC)
[2024-10-27 22:04] LABS: Color,Urine YELLOW (Yellow); Glucose,Urine (UA) TRACE (Negative); Ketones,Urine 2+ (Negative); Leukocyte Esterase,Urine Negative (Negative); PH,Urine 6.0 (5.0-8.5); Protein,Urine 2+ (Negative); Specific Gravity, Urine 1.020 (1.005-1.030); Urobilinogen,Urine 2.0 EU/dl (0.2)
[2024-10-27 22:25] LABS: Amorphous Sediment,Urine 2+ /lpf; Bilirubin,Urine 2+ (Negative)
[2024-10-27] MEDS: LACTATED RINGERS 1000ML 1,000 ML 999 ML IV (22:34)
[2024-10-27 22:45] LABS: Coronavirus 19, PCR Not Detected (NotDetected); Influenza A, PCR Not Detected (NotDetected); Influenza B, PCR Not Detected (NotDetected)
[2024-10-27 22:58] LABS: Hepatitis C Ab Qual. W/ RFX NEGATIVE (Negative)
[2024-10-27] MEDS: PIPERACILLIN/TAZO 4.5 GM in 0.9 % SODIUM CHLORIDE 100 ML IV (23:17)
[2024-10-27 23:44] LABS: Gamma Glutamyl Transpeptidase 98 U/L (12-43)
--- NOTE | 2024-10-27 23:45 | PC.NURSE ---
report called to Linnette PRO
--- NOTE | 2024-10-28 00:12 | P.HP_ITS ---
<Statement entered by Orion Leos MD - 10/28/24 22:59> Rounded on patient after nurse practitioner. Personally examined and interviewed patient. Agree with exam findings and care plan as documented. History of Present Illness *Admission Date: 10/28/24 *Reason for visit:: 2 days of nausea and vomiting dehydration *History of present illness: Ms. Aparicio is a very interesting patient., She is overweight and continues to smoke. She states she has quit seeing doctors several years ago and stopped with her follow-up for cancer care. She states that she was treated with chemotherapy after the cancer was found in her liver and spleen. This was after a hysterectomy and oophorectomy. Patient stopped following up at and says she is never taken the time to find another provider because her passport is not taken by many people. Presently in labs hyponatremia potential UTI also an elevated AST and elevated GGT with elevated WBCs.. ER doctor has started antibiotics on the patient at this time. Patient was asked and she said she does not drink alcohol. Question whether this increase in AST increase in GGT is related to the cancer or to particularly cholangitis or cholecystitis. Lipase was normal Due to the patient's nausea and vomiting potential dehydration patient will be admitted and IV fluids will be continued.. Also having case management involved to help the patient set up for post hospitalization follow-up to try to find a PCP that accepts her insurance and also to be evaluated by Dr. Camacho to have her cancer treated here. Depending on patient's condition in the morning may consult gastroenterology or general surgery. But at this time is not sure that the cause of this is either just a random GI virus which is in the community, her cancer, or related to a cholangitis or cholelithiasis. For this reasons I excepted the patient for admission to the floor [facility] Disclaimer: The information contained in this section may have been updated after the patient was seen, as this information can be updated by other users. 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 Liver mass Surgical History (Updated 10/28/24 @ 00:16 by Boyd Carrera APRN) H/O hysterectomy with oophorectomy Social History (Updated 10/28/24 @ 01:00 by Della Wallace RN) Smoking Status: Current every day smoker alcohol intake: never current occupational status: employed Travel in the last 8 weeks?: None Other Medical History Have you received the Flu Vaccine for this season: No Have you received the Pneumonia Vaccine: No Review of Systems Review of Systems Review of systems:: pertinent systems reviewed and negative unless documented below Constitutional Constitutional: Reports as per HPI Eyes Eyes: Reports as per HPI ENT Ears, Nose, Mouth, and Throat: Reports as per HPI *Cardiovascular Cardiovascular: Reports as per HPI *Respiratory Respiratory: Reports as per HPI *Gastrointestinal Gastrointestinal: Reports as per HPI and Reports constipation (No BM in 4 days) *Genitourinary Genitourinary: Reports as per HPI *Musculoskeletal Musculoskeletal: Reports as per HPI Integumentary/Breasts Skin/Breast: Reports as per HPI *Neurologic Neurologic: Reports as per HPI Psychiatric Psychiatric: Reports as per HPI Endocrine Endocrine: Reports as per HPI Hematologic/Lymphatic Hematologic/Lymphatic: Reports as per HPI Allergic/Immunologic Allergic/Immunologic: Reports as per HPI Meds Home Medications and Allergies Home Medications ?Medication ?Instructions ?Recorded ?Confirmed ?Type No Known Home Medications 10/28/2410/10 History New Prescriptions to Start Prescriptions: Allergies Allergy/AdvReac Type Severity Reaction Status Date / Time No Known Allergies Allergy Verified 10/28/24 00:56 Exam Data for Last 24 hours Vital signs and Labs for Last 24 Hours: Temp Pulse Resp BP Pulse Ox O2 Del Method 99.1 F 102 H 28 H 125/66 95 Room Air 10/27/24 19:52 10/27/24 23:18 10/27/24 23:18 10/27/24 23:18 10/27/24 23:18 10/27/24 23:18 Laboratory Results - last 24 hr 10/27/24 20:27: WBC 14.5 H, RBC 4.48, Hgb 12.0 L, Hct 36.0 L, MCV 80.4 L, MCH 26.8 L, MCHC 33.3, RDW 15.6, Plt Count 200, MPV 9.9, Neut % (Auto) 79.4, Lymph % (Auto) 11.0, [place] % (Auto) 8.7, Eos % (Auto) 0.0 L, Baso % (Auto) 0.3, Neut # (Auto) 11.6 H, Lymph # (Auto) 1.6, [place] # (Auto) 1.3 H, Eos # (Auto) 0.0, Baso # (Auto) 0.0, VBG pH 7.46 H, VBG pCO2 33.8 L, VBG pO2 58.0 H, VBG HCO3 23.2, VBG Total CO2 24.3, VBG O2 Saturation 91.8 H, VBG Base Excess -0.7, VBG Lactic Acid 1.7, Sodium 131 L, Potassium 4.0, Chloride 99, Carbon Dioxide 22, Anion Gap 14.0, BUN 15, Creatinine 0.80, Estimated Creat Clear 170, Estimated GFR 77, Est GFR ( Amer) 93, Glucose 121 H, Calcium 8.8, Magnesium 1.9, Total Bilirubin 2.2 H, GGT 98 H, AST 89 H, ALT 50, Alkaline Phosphatase 266 H, Total Protein 8.0, Albumin 4.2, Globulin 3.8 H, Albumin/Globulin Ratio 1.1, Lipase 33, Serum HCG, Qual Negative, HCV Ab YOLY w/Rflx PCR Qn Negative 10/27/24 21:49: Urine Color Yellow, Urine Appearance Clear, Urine pH 6.0, Ur Specific [place] 1.020, Urine Protein 2+ A, Urine Glucose (UA) Trace, Urine Ketones 2+, Urine Blood 1+ A, Urine Nitrate Positive A, Urine Bilirubin 2+ A, Urine Urobilinogen 2.0, Ur Leukocyte Esterase Negative, Urine RBC None, Urine WBC 5-10, Ur Squamous Epith Cells 5-10, Amorphous Sediment 2+ 10/27/24 22:35: SARS-CoV-2 (PCR) Not detected, Influenza A Untype (PCR) Not detected, Influenza Type B (PCR) Not detected I & O for Last 24 hours: Intake & Output 10/25/24 10/26/24 10/27/24 10/28/24 05:59 05:59 05:59 05:59 Intake Total 1600 / 1600 Balance 1600 / 1600 Weight 270 lb Radiology Reports for the Last 24 Hours: Liver: There is an enlarging mass in the right hepatic dome measuring approximately 16 x 13 x 11 cm in AP by transverse by longitudinal dimensions. Prior reported measurements are 11.3 x 5.3 x 8.9 cm. There is heterogeneous enhancement of the lesion with areas of non enhancement remaining on delayed imaging. This accounts for elevation of the right hemidiaphragm. The liver is overall enlarged. Gallbladder and biliary ducts: Cholelithiasis is present without findings of cholecystitis. No gallbladder wall thickening or pericholecystic fluid collection. There is no biliary ductal dilation. Pancreas: Normal. No ductal dilation. Spleen: There is a heterogeneously enhancing lesion posterosuperior aspect of the spleen having dimensions of approximately 5.6 x 7.8 x 8.0 cm. Previous axial dimensions are 4.7 x 6.8 cm. Adrenal glands: There is a stable subcentimeter left adrenal nodule. The right adrenal gland is unremarkable. Kidneys and ureters: No hydronephrosis or stone disease. There are several renal cortical hypodensities bilaterally which do not demonstrate enhancement on delayed imaging. These are most consistent with small cysts. Stomach and bowel: There are few scattered left colon diverticula. No acute inflammation. No bowel obstruction. No mucosal thickening. Appendix: No evidence of appendicitis. Intraperitoneal space: Unremarkable. No free air. No significant fluid collection. Vasculature: Unremarkable. No abdominal aortic aneurysm. Lymph nodes: Calcified bilateral hilar and mediastinal lymph nodes. Numerous small periaortic and aortocaval lymph nodes similar to the prior exam. Urinary bladder: Unremarkable as visualized. Reproductive: The uterus is absent. Bones/joints: There are mild degenerative changes of the spine. No acute fracture. Soft tissues: Unremarkable. IMPRESSION: 1. There are heterogeneously enhancing hepatic and splenic masses which have increased in size since the prior exam 06/16/2023. This is particularly evident regarding the hepatic mass. The lesions are not fully evaluated on this examination. Correlation with any interval MR imaging is recommended. If there has been no interval imaging, further evaluation with nonemergent unenhanced and enhanced MR imaging is recommended. 2. Right basilar atelectasis. 3. Findings within the chest consistent with prior granulomatous exposure. 4. Other nonemergent findings as noted. Constitutional Constitutional: mild distress, obese and cooperative *Routine HEENT Exam Head: Present normocephalic and atraumatic Eye: Present EOMI and normal accommodation ENT: Present mucous membranes moist and mucous membranes dry *Routine Neck Exam Neck: Present supple and full ROM *Routine Respiratory Exam Respiratory: Present accessory muscle use, CTA bilaterally, normal respiratory effort, able to speak in complete sentences and symmetric chest movement Comments: Patient's lungs were completely clear on exam equal expansion no signs of respi ratory issues at this time *Routine Cardiovascular Exam Cardiovascular: Present Normal S1 and Normal S2 Comments: No edema in the lower extremities skin is normal color and temperature *Routine Abdominal Exam Abdominal: Present soft, normoactive bowel sounds and obese Comments: Bowel sounds are actually quiet there was no tenderness to moderate palpation of the abdomen *Routine Rectal Exam Rectal:: deferred *Routine Genitalia Exam Genitalia:: deferred *Routine Extremities Exam Extremities: Present full ROM Comments: No limitation was found in the extremities patient is able to stand move all of her limbs without any difficulty. With normal strength *Routine Skin Exam Skin: Present intact, dry, pallor, warm and normal turgor *Routine Neurological Exam Neurological: Present alert, oriented X3, CN II-XII intact, normal reflexes, moving all extremities, normal tone, vision grossly intact, hearing grossly intact and normal speech Comments: No neurological deficits were found on this exam Routine Psychiatric Exam Psychiatric: Present normal affect, normal thought process, cooperative, good insight and good judgment Comments: Patient appears slightly withdrawn while questioning. Showing no motivation to have followed up with her care for her cancer. Question depression H&P: Result Impressions 1. Nausea and vomiting question source being viral versus, liver related or advancing cancer related, with enlarging mass in the liver 2. Tobacco smoker. 3. Presently dehydration from nausea and vomiting of unknown cause Imaging and Cardiology CT scan - abdomen: Status: image reviewed by me (Liver: There is an enlarging mass in the right hepatic dome measuring approximately 16 x 13 x 11 cm in AP by transverse by longitudinal dimensions. Prior reported measurements are 11.3 x 5.3 x 8.9 cm. There is heterogeneous enhancement of the lesion with areas of non enhancement remaining on d) Assessment and Plan *Assessment and plan (1) Nausea & vomiting: Status: Acute Qualifiers: Vomiting type: unspecified Qualified Code(s): R11.2 - Nausea with vomiting, unspecified Category: Medical Code(s): R11.2 - Nausea with vomiting, unspecified (2) Urinary tract infection: Status: Acute Qualifiers: Urinary tract infection type: acute pyelonephritis Qualified Code(s): N10 - Acute pyelonephritis Category: Medical Code(s): N39.0 - Urinary tract infection, site not specified (3) Sepsis: Status: Acute Qualifiers: Sepsis acute organ dysfunction status: unspecified Sepsis type: sepsis due to unspecified organism Qualified Code(s): A41.9 - Sepsis, unspecified organism Category: Medical Code(s): A41.9 - Sepsis, unspecified organism (4) Liver mass: Status: Acute Category: Medical Code(s): R16.0 - Hepatomegaly, not elsewhere classified (5) Cholelithiasis: Status: Acute Qualifiers: Biliary obstruction: with biliary obstruction Cholecystitis presence: without cholecystitis Cholelithiasis location: gallbladder Qualified Code(s): K80.21 - Calculus of gallbladder without cholecystitis with obstruction Category: Medical Code(s): K80.20 - Calculus of gallbladder without cholecystitis without obstruction (6) Hyperbilirubinemia: Status: Acute Category: Medical Code(s): E80.6 - Other disorders of bilirubin metabolism (7) H/O hysterectomy with oophorectomy: Status: Acute Category: Surgical Plan 44-year-old female with history of metastatic ovarian cancer. Presented to the ER with nausea and vomiting and diarrhea. Concern for SIRS criteria with her elevated white count and tachycardia. Suspect possible gastroenteritis versus UTI. Discussed case with ER physician, request admission for further management fluid resuscitation. Initiated on empiric antibiotics. Medicine agreed to admit for further care. Problems addressed as follows: SIRS versus sepsis - White count 14.5, initially tachycardic 120-130. Brief episode of tachypnea for a few hours with respiratory rate in the upper 20s. concern for possible UTI. Initiated on empiric antibiotics with vanc and zosyn - urinalysis obtained with positive nitrate but no bacteria, culture pending - Slight abnormality in liver enzymes. Sodium low at 131, BUN 15, creatinine 0.8. Bilirubin 2.2, GGT 98, AST 89. Alk phos 266. - Repeat CBC, CMP, magnesium ordered for the morning - zofran for nausea and vomiting 4mg IV q6hr prn Hx of Ovarian cancer metastatic to liver - lost to follow-up in 2020 due to caring for ill mother. - needs to re-establish with Oncology, CT per my review with increased size of liver lesion Full code trial liquid diet
[2024-10-28 00:45] VITALS: BP 120/60; PULSE 109; RESP 24; TEMP 37.3; O2SAT 93; BMI 36.3
[2024-10-28 00:48] VITALS: BP 102/60; PULSE 102; RESP 28; TEMP 36.8; O2SAT 95
[2024-10-28] MEDS: LACTATED RINGERS 1000ML 1,000 ML 125 ML IV (00:50)
[2024-10-28] MEDS: VANCOMYCIN HCL 2,000 MG in 0.9 % SODIUM CHLORIDE 500 ML 250 MG IV (01:04)
[2024-10-28] MEDS: FAMOTIDINE 20MG/2ML VIAL 20 MG IV ×2 (01:13→08:08)
[2024-10-28] MEDS: SODIUM CHLORIDE 0.9% 10ML VIAL 8 ML IV (01:21)
[2024-10-28 04:00] VITALS: BP 121/68; PULSE 94; RESP 16; TEMP 36.8; O2SAT 95; BMI 36.3
[2024-10-28 06:26] LABS: Hematocrit 30.1 % (37.0-47.0); Immature Granulocytes % 0.5 %; Mean Corpuscular HGB Conc 31.9 g/dL (31.8-35.4); Mean Corpuscular Hemoglobin 26.2 pg (27.0-31.2); Mean Corpuscular Volume 82.2 fl (81-99); Nucleated Red Blood Cells % 0 %; Platelet Count 156 K/mm3 (142-424); Red Blood Count 3.66 M/mm3 (4.20-5.40); Red Cell Distribution Width-SD 47.7 fL; White Blood Count 11.7 K/mm3 (4.8-10.8)
[2024-10-28 06:31] LABS: Chloride 103 mmol/L (98-107)
[2024-10-28 06:32] LABS: Albumin Level 3.5 g/dl (3.5-5.0); Potassium 3.7 mmoL/L (3.5-5.1); Sodium 134 mmol/L (136-145)
[2024-10-28 06:35] LABS: Alanine Aminotransferase 39 U/L (12-78); Albumin/Globulin Ratio 1.1 (1.1-1.8); Alkaline Phosphatase 209 U/L (38-126); Anion Gap 11.7 mEq/L (5-15); Aspartate Amino Transferase 63 U/L (14-36); Bilirubin,Total 1.7 mg/dl (0.2-1.3); Blood Urea Nitrogen 12 mg/dl (7-17); Calcium 8.2 mg/dl (8.4-10.2); Carbon Dioxide 23 mmol/L (22.0-30.0); Creatinine Clearance Estimated 176 mL/min (50-200); Creatinine,Serum 0.70 mg/dl (0.52-1.04); Estimated Glomerular Filt Rate 90 ml/min (>60); GFR (African American) 109 ML/MIN (>60); Globulin 3.1 g/dL (1.3-3.2); Glucose 109 mg/dl (74-100); Magnesium 2.0 mg/dl (1.6-2.3); Total Protein,Serum 6.6 g/dl (6.3-8.2)
[2024-10-28 06:53] LABS: Hemoglobin 9.5 g/dL (12.2-16.2)
[2024-10-28] MEDS: PIPERACILLIN/TAZO 3.375 GM in 0.9 % SODIUM CHLORIDE 50 ML IV ×2 (06:58→13:24)
[2024-10-28 08:00] VITALS: BP 133/72; PULSE 87; RESP 16; TEMP 36.8; O2SAT 95
--- NOTE | 2024-10-28 08:35 | EXP.PHA.CONS ---
Pharmacy Consult Date: 10/28/24 Time: 08:36 Referring provider: DR. MURRAY Reason for Consult:: VANCOMYCIN DOSING Allergies Allergy/AdvReac Type Severity Reaction Status Date / Time No Known Allergies Allergy Verified 10/28/24 00:56 Home Medications ?Medication ?Instructions ?Recorded ?Confirmed ?Type No Known Home Medications 10/28/24 10/28/24 History New Prescriptions to Start Prescriptions: Height: 1.75 m Weight: 111.244 kg Laboratory Results:: Laboratory Results - last 24 hr 10/27/24 20:27: WBC 14.5 H, RBC 4.48, Hgb 12.0 L, Hct 36.0 L, MCV 80.4 L, MCH 26.8 L, MCHC 33.3, RDW 15.6, Plt Count 200, MPV 9.9, Neut % (Auto) 79.4, Lymph % (Auto) 11.0, [place] % (Auto) 8.7, Eos % (Auto) 0.0 L, Baso % (Auto) 0.3, Neut # (Auto) 11.6 H, Lymph # (Auto) 1.6, [place] # (Auto) 1.3 H, Eos # (Auto) 0.0, Baso # (Auto) 0.0, VBG pH 7.46 H, VBG pCO2 33.8 L, VBG pO2 58.0 H, VBG HCO3 23.2, VBG Total CO2 24.3, VBG O2 Saturation 91.8 H, VBG Base Excess -0.7, VBG Lactic Acid 1.7, Sodium 131 L, Potassium 4.0, Chloride 99, Carbon Dioxide 22, Anion Gap 14.0, BUN 15, Creatinine 0.80, Estimated Creat Clear 170, Estimated GFR 77, Est GFR ( Amer) 93, Glucose 121 H, Calcium 8.8, Magnesium 1.9, Total Bilirubin 2.2 H, GGT 98 H, AST 89 H, ALT 50, Alkaline Phosphatase 266 H, Total Protein 8.0, Albumin 4.2, Globulin 3.8 H, Albumin/Globulin Ratio 1.1, Lipase 33, Serum HCG, Qual Negative, HCV Ab YOLY w/Rflx PCR Qn Negative, HIV Ag/Ab Combo Qual Negative 10/27/24 21:49: Urine Color Yellow, Urine Appearance Clear, Urine pH 6.0, Ur Specific [place] 1.020, Urine Protein 2+ A, Urine Glucose (UA) Trace, Urine Ketones 2+, Urine Blood 1+ A, Urine Nitrate Positive A, Urine Bilirubin 2+ A, Urine Urobilinogen 2.0, Ur Leukocyte Esterase Negative, Urine RBC None, Urine WBC 5-10, Ur Squamous Epith Cells 5-10, Amorphous Sediment 2+ 10/27/24 22:35: SARS-CoV-2 (PCR) Not detected, Influenza A Untype (PCR) Not detected, Influenza Type B (PCR) Not detected 10/28/24 06:03: WBC 11.7 H, RBC 3.66 L, Hgb 9.5 L D, Hct 30.1 L, MCV 82.2, MCH 26.2 L, MCHC 31.9, RDW 15.8, Plt Count 156, MPV 10.2, Neut % (Auto) 74.9, Lymph % (Auto) 14.6, [place] % (Auto) 9.4 H, Eos % (Auto) 0.3, Baso % (Auto) 0.3, Neut # (Auto) 8.8 H, Lymph # (Auto) 1.7, [place] # (Auto) 1.1 H, Eos # (Auto) 0.0, Baso # (Auto) 0.0, Sodium 134 L, Potassium 3.7, Chloride 103, Carbon Dioxide 23, Anion Gap 11.7, BUN 12, Creatinine 0.70, Estimated Creat Clear 176, Estimated GFR 90, Est GFR ( Amer) 109, Glucose 109 H, Lactate 0.8, Calcium 8.2 L, Magnesium 2.0, Total Bilirubin 1.7 H, AST 63 H D, ALT 39, Alkaline Phosphatase 209 H, Total Protein 6.6, Albumin 3.5 D, Globulin 3.1, Albumin/Globulin Ratio 1.1 Medical History: Medical History (Updated 10/28/24 @ 01:00 by Della Wallace RN) Ovarian cancer 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 Drug selected: Vancomycin Loading dose (mg): Vd (liters): 89.0 (factor used: 0.8 L/kg) Moi (hr-1): 0.091 Half life (hrs): 7.62 CLvanco=?? 8.099 L/hr Recommended dose: 2250 mg Interval: 12 hrs Infusion time (hrs): 2.0 Predicted peak (mcg/mL): 34.8 Predicted trough (mcg/mL): 14.01 Total body weight is being used for vancomycin dosing. Recommendations: Give Vancomycin 2250 mg q 12 hrs with an expected Cpeak of 34.8 mcg/ml and an expected Ctrough of 14.01 mcg/ml AUC 0-24 /OSVALDO Data: OSVALDO 0.5 mcg/mL:?? AUC/OSVALDO:? 1111.2 OSVALDO 1.0 mcg/mL:?? AUC/OSVALDO:? 555.6 --------- OSVALDO 1.5 mcg/mL:?? AUC/OSVALDO:? 370.4 OSVALDO 2.0 mcg/mL:?? AUC/OSVALDO:? 277.8 Thank you for the consult, will continue to follow. -VINCENT FARIAS, RAYOD
--- NOTE | 2024-10-28 08:55 | HMH.PHAINT1 ---
Pharmacy Intervention Comments: SPOKE WITH PATIENT. SHE TAKES NO PRESCRIBED MEDICATIONS AT HOME. [facility]
[2024-10-28] MEDS: VANCOMYCIN HCL 2,250 MG in 0.9 % SODIUM CHLORIDE 250 ML 125 MG IV (13:55)
--- NOTE | 2024-10-28 16:40 | EXP.DC.SUM ---
General Admission date:: 10/27/24 Discharge date: 10/28/24 HPI HPI HPI: Ms. Aparicio is a very interesting patient., She is overweight and continues to smoke. She states she has quit seeing doctors several years ago and stopped with her follow-up for cancer care. She states that she was treated with chemotherapy after the cancer was found in her liver and spleen. This was after a hysterectomy and oophorectomy. Patient stopped following up at and says she is never taken the time to find another provider because her passport is not taken by many people. Presently in labs hyponatremia potential UTI also an elevated AST and elevated GGT with elevated WBCs.. ER doctor has started antibiotics on the patient at this time. Patient was asked and she said she does not drink alcohol. Question whether this increase in AST increase in GGT is related to the cancer or to particularly cholangitis or cholecystitis. Lipase was normal Due to the patient's nausea and vomiting potential dehydration patient will be admitted and IV fluids will be continued.. Also having case management involved to help the patient set up for post hospitalization follow-up to try to find a PCP that accepts her insurance and also to be evaluated by Dr. Camacho to have her cancer treated here. Depending on patient's condition in the morning may consult gastroenterology or general surgery. But at this time is not sure that the cause of this is either just a random GI virus which is in the community, her cancer, or related to a cholangitis or cholelithiasis. For this reasons I excepted the patient for admission to the floor Hospital Course Hospital Course Hospital Course: 44-year-old female with history of metastatic ovarian cancer. Presented to the ER with nausea and vomiting and diarrhea. Concern for SIRS criteria with her elevated white count and tachycardia. Suspect possible gastroenteritis versus UTI. Discussed case with ER physician, request admission for further management fluid resuscitation. Initiated on empiric antibiotics. Medicine agreed to admit for further care. Patient did well with defervescent's of symptoms. Symptoms more or less resolved by morning. Stable discharge home with follow-up with oncology as an outpatient. Problems addressed as follows: SIRS versus sepsis - White count 14.5, initially tachycardic 120-130. Brief episode of tachypnea for a few hours with respiratory rate in the upper 20s. concern for possible UTI. Initiated on empiric antibiotics with vanc and zosyn. Urinalysis obtained with positive nitrate but no bacteria, culture pending. White count normalized 11.7 by morning. Liver enzymes showing improvement with normal kidney function. Bilirubin 1.7, AST 63, ALT 39 and alk phos 209. Suspect her nausea and vomiting led to leukocytosis. Low concern for UTI. Will hold on further antibiotics at discharge. Monitor urine culture and reevaluate after discharge. Tolerating p.o. intake with no further nausea or vomiting. No abdominal pain on day of discharge. Stable to discharge home. Concern her nausea and vomiting and elevation in liver enzymes is related to her metastatic ovarian cancer as her liver lesion is increasing in size on CT of abdomen. Hx of Ovarian cancer metastatic to liver - lost to follow-up in 2020 due to caring for ill mother. Needs to re-establish with Oncology, CT per my review with increased size of liver lesion. Follow-up scheduled with Dr. Veloz to re-establish care. Previously seen and managed at [facility] at . Total time spent on discharge 32 minutes in counseling, documentation, chart review, and direct care with patient. Exam Data for Last 24 hours Vital signs and Labs for Last 24 Hours: Temp Pulse Resp BP Pulse Ox O2 Del Method 98.3 F 87 16 133/72 95 Room Air 10/28/24 08:00 10/28/24 08:00 10/28/24 08:00 10/28/24 08:00 10/28/24 08:00 10/28/24 14:17 Laboratory Results - last 24 hr 10/27/24 20:27: WBC 14.5 H, RBC 4.48, Hgb 12.0 L, Hct 36.0 L, MCV 80.4 L, MCH 26.8 L, MCHC 33.3, RDW 15.6, Plt Count 200, MPV 9.9, Neut % (Auto) 79.4, Lymph % (Auto) 11.0, [place] % (Auto) 8.7, Eos % (Auto) 0.0 L, Baso % (Auto) 0.3, Neut # (Auto) 11.6 H, Lymph # (Auto) 1.6, [place] # (Auto) 1.3 H, Eos # (Auto) 0.0, Baso # (Auto) 0.0, VBG pH 7.46 H, VBG pCO2 33.8 L, VBG pO2 58.0 H, VBG HCO3 23.2, VBG Total CO2 24.3, VBG O2 Saturation 91.8 H, VBG Base Excess -0.7, VBG Lactic Acid 1.7, Sodium 131 L, Potassium 4.0, Chloride 99, Carbon Dioxide 22, Anion Gap 14.0, BUN 15, Creatinine 0.80, Estimated Creat Clear 170, Estimated GFR 77, Est GFR ( Amer) 93, Glucose 121 H, Calcium 8.8, Magnesium 1.9, Total Bilirubin 2.2 H, GGT 98 H, AST 89 H, ALT 50, Alkaline Phosphatase 266 H, Total Protein 8.0, Albumin 4.2, Globulin 3.8 H, Albumin/Globulin Ratio 1.1, Lipase 33, Serum HCG, Qual Negative, HCV Ab YOLY w/Rflx PCR Qn Negative, HIV Ag/Ab Combo Qual Negative 10/27/24 21:49: Urine Color Yellow, Urine Appearance Clear, Urine pH 6.0, Ur Specific [place] 1.020, Urine Protein 2+ A, Urine Glucose (UA) Trace, Urine Ketones 2+, Urine Blood 1+ A, Urine Nitrate Positive A, Urine Bilirubin 2+ A, Urine Urobilinogen 2.0, Ur Leukocyte Esterase Negative, Urine RBC None, Urine WBC 5-10, Ur Squamous Epith Cells 5-10, Amorphous Sediment 2+ 10/27/24 22:35: SARS-CoV-2 (PCR) Not detected, Influenza A Untype (PCR) Not detected, Influenza Type B (PCR) Not detected 10/28/24 06:03: WBC 11.7 H, RBC 3.66 L, Hgb 9.5 L D, Hct 30.1 L, MCV 82.2, MCH 26.2 L, MCHC 31.9, RDW 15.8, Plt Count 156, MPV 10.2, Neut % (Auto) 74.9, Lymph % (Auto) 14.6, [place] % (Auto) 9.4 H, Eos % (Auto) 0.3, Baso % (Auto) 0.3, Neut # (Auto) 8.8 H, Lymph # (Auto) 1.7, [place] # (Auto) 1.1 H, Eos # (Auto) 0.0, Baso # (Auto) 0.0, Sodium 134 L, Potassium 3.7, Chloride 103, Carbon Dioxide 23, Anion Gap 11.7, BUN 12, Creatinine 0.70, Estimated Creat Clear 176, Estimated GFR 90, Est GFR ( Amer) 109, Glucose 109 H, Lactate 0.8, Calcium 8.2 L, Magnesium 2.0, Total Bilirubin 1.7 H, AST 63 H D, ALT 39, Alkaline Phosphatase 209 H, Total Protein 6.6, Albumin 3.5 D, Globulin 3.1, Albumin/Globulin Ratio 1.1 I & O for Last 24 hours: Intake & Output 10/25/24 10/26/24 10/27/24 10/28/24 23:59 23:59 23:59 23:59 Intake Total 500 / 500 3220.0 / 3220.0 Output Total 200 / 200 Balance 500 / 500 3020.0 / 3020.0 Weight 122.47 kg 111.244 kg Constitutional Constitutional: no acute distress, obese, chronically ill appearing and cooperative *Routine HEENT Exam Head: Present normocephalic Eye: Present EOMI and PERRL ENT: Present mucous membranes moist *Routine Neck Exam Neck: Present supple; Absent lymphadenopathy *Routine Respiratory Exam Respiratory: Present CTA bilaterally; Absent rhonchi, wheezes or crackles *Routine Cardiovascular Exam Cardiovascular: Present RRR *Routine Abdominal Exam Abdominal: Present soft and normoactive bowel sounds; Absent tenderness, distended or rebound *Routine Rectal Exam Patient deferred: visual exam *Routine Exam Patient deferred: external exam *Routine Extremities Exam Extremities: Absent cyanosis, clubbing or edema *Routine Skin Exam Skin: Present intact and warm; Absent rash *Routine Neurological Exam Neurological: Present alert, oriented X3 and moving all extremities; Absent altered mental status Results Data Completed and Pending Labs on day of discharge: Labs from last 24 hours 10/28/24 10/27/24 10/27/24 06:03 22:35 21:49 WBC 11.7 H RBC 3.66 L Hgb 9.5 L D Hct 30.1 L MCV 82.2 MCH 26.2 L MCHC 31.9 RDW 15.8 Plt Count 156 MPV 10.2 Neut % (Auto) 74.9 Lymph % (Auto) 14.6 [place] % (Auto) 9.4 H Eos % (Auto) 0.3 Baso % (Auto) 0.3 Neut # (Auto) 8.8 H Lymph # (Auto) 1.7 [place] # (Auto) 1.1 H Eos # (Auto) 0.0 Baso # (Auto) 0.0 VBG pH VBG pCO2 VBG pO2 VBG HCO3 VBG Total CO2 VBG O2 Saturation VBG Base Excess VBG Lactic Acid Sodium 134 L Potassium 3.7 Chloride 103 Carbon Dioxide 23 Anion Gap 11.7 BUN 12 Creatinine 0.70 Estimated Creat Clear 176 Estimated GFR 90 Est GFR ( Amer) 109 Glucose 109 H Lactate 0.8 Calcium 8.2 L Magnesium 2.0 Total Bilirubin 1.7 H GGT AST 63 H D ALT 39 Alkaline Phosphatase 209 H Total Protein 6.6 Albumin 3.5 D Globulin 3.1 Albumin/Globulin Ratio 1.1 Lipase Serum HCG, Qual Urine Color Yellow Urine Appearance Clear Urine pH 6.0 Ur Specific [place] 1.020 Urine Protein 2+ A Urine Glucose (UA) Trace Urine Ketones 2+ Urine Blood 1+ A Urine Nitrate Positive A Urine Bilirubin 2+ A Urine Urobilinogen 2.0 Ur Leukocyte Esterase Negative Urine RBC None Urine WBC 5-10 Ur Squamous Epith Cells 5-10 Amorphous Sediment 2+ SARS-CoV-2 (PCR) Not detected HCV Ab YOLY w/Rflx PCR Qn HIV Ag/Ab Combo Qual Influenza A Untype (PCR) Not detected Influenza Type B (PCR) Not detected 10/27/24 20:27 WBC 14.5 H RBC 4.48 Hgb 12.0 L Hct 36.0 L MCV 80.4 L MCH 26.8 L MCHC 33.3 RDW 15.6 Plt Count 200 MPV 9.9 Neut % (Auto) 79.4 Lymph % (Auto) 11.0 [place] % (Auto) 8.7 Eos % (Auto) 0.0 L Baso % (Auto) 0.3 Neut # (Auto) 11.6 H Lymph # (Auto) 1.6 [place] # (Auto) 1.3 H Eos # (Auto) 0.0 Baso # (Auto) 0.0 VBG pH 7.46 H VBG pCO2 33.8 L VBG pO2 58.0 H VBG HCO3 23.2 VBG Total CO2 24.3 VBG O2 Saturation 91.8 H VBG Base Excess -0.7 VBG Lactic Acid 1.7 Sodium 131 L Potassium 4.0 Chloride 99 Carbon Dioxide 22 Anion Gap 14.0 BUN 15 Creatinine 0.80 Estimated Creat Clear 170 Estimated GFR 77 Est GFR ( Amer) 93 Glucose 121 H Lactate Calcium 8.8 Magnesium 1.9 Total Bilirubin 2.2 H GGT 98 H AST 89 H ALT 50 Alkaline Phosphatase 266 H Total Protein 8.0 Albumin 4.2 Globulin 3.8 H Albumin/Globulin Ratio 1.1 Lipase 33 Serum HCG, Qual Negative Urine Color Urine Appearance Urine pH Ur Specific [place] Urine Protein Urine Glucose (UA) Urine Ketones Urine Blood Urine Nitrate Urine Bilirubin Urine Urobilinogen Ur Leukocyte Esterase Urine RBC Urine WBC Ur Squamous Epith Cells Amorphous Sediment SARS-CoV-2 (PCR) HCV Ab YOLY w/Rflx PCR Qn Negative HIV Ag/Ab Combo Qual Negative Influenza A Untype (PCR) Influenza Type B (PCR) DS: Diagnosis Discharge Diagnosis (1) Nausea & vomiting: Status: Acute Code(s): R11.2 - Nausea with vomiting, unspecified Qualifiers: Vomiting type: unspecified Qualified Code(s): R11.2 - Nausea with vomiting, unspecified (2) Urinary tract infection: Status: Acute Code(s): N39.0 - Urinary tract infection, site not specified Qualifiers: Urinary tract infection type: acute pyelonephritis Qualified Code(s): N10 - Acute pyelonephritis (3) Sepsis: Status: Acute Code(s): A41.9 - Sepsis, unspecified organism Qualifiers: Sepsis acute organ dysfunction status: unspecified Sepsis type: sepsis due to unspecified organism Qualified Code(s): A41.9 - Sepsis, unspecified organism Problem details: Ruled out, presentation consistent with SIRS (4) Liver mass: Status: Acute Code(s): R16.0 - Hepatomegaly, not elsewhere classified (5) Cholelithiasis: Status: Acute Code(s): K80.20 - Calculus of gallbladder without cholecystitis without obstruction Qualifiers: Biliary obstruction: with biliary obstruction Cholecystitis presence: without cholecystitis Cholelithiasis location: gallbladder Qualified Code(s): K80.21 - Calculus of gallbladder without cholecystitis with obstruction (6) Hyperbilirubinemia: Status: Acute Code(s): E80.6 - Other disorders of bilirubin metabolism (7) H/O hysterectomy with oophorectomy: Status: Acute Meds Home Medications and Allergies Home Medications ?Medication ?Instructions ?Recorded ?Confirmed ?Type No Known Home Medications 10/28/24 10/28/24 History New Prescriptions to Start Prescriptions: Allergies Allergy/AdvReac Type Severity Reaction Status Date / Time No Known Allergies Allergy Verified 10/28/24 00:56 Discharge Plan Disposition Patient Disposition: Home, Self-Care Condition: Fair Follow up Plan Follow up with: Caleb Veloz MD [Staff Physician, Oncology] - 11/04/24 2:30 pm Prescriptions/Medication Reconciliation: No Action No Known Home Medications Problem Reconciliation Problems Reviewed?: Yes Patient Discharge Instructions ACTIVITY: Continue current activity DIET: continue same diet Patient Instructions: DI for Gallstones, DI for Sepsis -- Adult, Stop Light Infection Print Language: [place] Providers Primary Care Provider: Provider,Referral Admit Provider: Lefty Fregoso Attending Provider: Lefty Fregoso
--- NOTE | 2024-10-29 10:22 | SW/DCPLANNER ---
Spoke with patient on the phone. Patient stated that she is doing good. Patient stated that she is aware of her upcoming appointment. Patient stated that she was not prescribed any medication. Patient stated that she has no concerns or questions at this time. Paresh George
== END 2024-10-28 17:04 | disposition home or self-care (01) ==
LOC: ER 20:30 → 2ND 23:25
PROVIDERS: Nurse Practitioner Family; Admitting Provider Student in an Organized Health Care Education/Training Program; Emergency Provider Student in an Organized Health Care Education/Training Program; Visit Provider Student in an Organized Health Care Education/Training Program
DX: N10 Acute pyelonephritis (principal); A41.9 Sepsis, unspecified organism; E66.9 Obesity, unspecified; R16.1 Splenomegaly, not elsewhere classified; R16.0 Hepatomegaly, not elsewhere classified; J98.11 Atelectasis; I45.10 Unspecified right bundle-branch block; K57.90 Diverticulosis of intestine, part unspecified, without perforation or abscess without bleeding; F17.200 Nicotine dependence, unspecified, uncomplicated; R00.0 Tachycardia, unspecified; K80.21 Calculus of gallbladder without cholecystitis with obstruction; E80.6 Other disorders of bilirubin metabolism; Z90.710 Acquired absence of both cervix and uterus; Z90.722 Acquired absence of ovaries, bilateral; Z85.05 Personal history of malignant neoplasm of liver; Z68.36 Body mass index [BMI] 36.0-36.9, adult; Z85.43 Personal history of malignant neoplasm of ovary; Z85.42 Personal history of malignant neoplasm of other parts of uterus
CPT/HCPCS: 36415; 71045; 74177; 80053; 81001; 82803; 82977; 83605; 83690; 83735; 84703; 85025; 86803; 87040; 87086; 87389; 87636; 93005; 96361; 96365; 96366; 96372; 96374; 96375; 96376; 99285; C1713; G0378; J1650; J2405; J2543; J3373; J7040; J7050; J7120; Q9967

== ENCOUNTER 2024-11-04 14:55 | Outpatient (CLI) | payer MEDICAID, SELFPAY ==
--- OUTSIDE RECORDS SUMMARY | 2024-11-04 14:57 | XMS_ITS | Clinical Summary ---
Author Organization [facility] Address [address] [place] [address] Care Team Providers Care E Commerce Specialist Name Role Phone Pcp, No Primary Care [...] 2023 Sigmoidoscopy 2023 [facility]-Colorectal Cancer Screening 2023 [id number] Vaccine ( - season) 2023 [facility]-Influenza Vaccine [...] Reactive Non Reactive 06/16/2023 9:02 AM EDT [facility] Comment:Screening for HIV 1 & 2 antibodies, and P24 antigen is NONREACTIVE. No confirmatory testing is required. Blood Venous blood specimen / Unknown Venipuncture / Unknown 06/16/2023 8:03 AM EDT 06/16/2023 8:20 AM EDT us Elliott Bravo MD LAB BLOOD ORDERABLES Final Resul t [facility] [address] [place] [address] * Aubrey Hepatitis C Antibody (12/16/2017 9:07 PM EDT) Aubrey Hepatitis C Ab BEING REPEATED TO CONFIRM SUNQUEST 12/16/2017 9:07 PM EDT 12/16/2017 9:17 PM EDT us Emmanuelle Thomason MD LAB BLOOD ORDERABLES Final Resul t SUNQUEST from Last 3 Months or Most Recently Relevant to Health Maintenance Insurance MEDICAID [place] Care Teams E Commerce Specialist Relationship Specialty Start Date End Date Pcp, [facility] [address] [place] [address] PCP - General Family Medicine 06/16/23
[2024-11-04 15:23] LABS: Hematocrit 32.7 % (37.0-47.0); Hemoglobin 10.4 g/dL (12.2-16.2); Immature Granulocytes % 0.9 %; Mean Corpuscular HGB Conc 31.8 g/dL (31.8-35.4); Mean Corpuscular Hemoglobin 26.1 pg (27.0-31.2); Mean Corpuscular Volume 82.0 fl (81-99); Nucleated Red Blood Cells % 0 %; Platelet Count 372 K/mm3 (142-424); Red Blood Count 3.99 M/mm3 (4.20-5.40); Red Cell Distribution Width-SD 46.3 fL; White Blood Count 8.7 K/mm3 (4.8-10.8)
[2024-11-04 16:11] LABS: Bilirubin,Direct 0.5 mg/dl (0.0-0.4); Bilirubin,Indirect 0.3 mg/dL (0.0-0.9); Bilirubin,Total 0.8 mg/dl (0.2-1.3); Bilirubin,Unconjugated 0.3 mg/dL (0.0-1.1)
[2024-11-06 12:44] LABS: CEA 2.6 ng/mL (0.0-4.7)
== END 2024-11-04 23:59 | disposition home or self-care (01) ==
LOC: LAB 14:56
PROVIDERS: PCP Internal Medicine; Visit Provider Internal Medicine Medical Oncology
DX: E80.6 Other disorders of bilirubin metabolism (principal); R16.0 Hepatomegaly, not elsewhere classified
CPT/HCPCS: 36415; 82247; 82248; 82378; 85025; 86304

== ENCOUNTER 2024-11-08 07:02 | Emergency (ER) | payer MEDICAID, SELFPAY ==
[2024-11-08] VITALS (8 sets, daily range): BP systolic 142–182; BP diastolic 84–96; PULSE 82–110; RESP 20–30; TEMP 36.6; O2SAT 95–97; BMI 38.3
--- NOTE | 2024-11-08 07:08 | ECG_ITS ---
APPROVED REPORT Exam: Resting ECG HR:115 bpm ECG Measurements Heart Rate 115 AXES ID 139 P 66 QRSd 105 QRS 34 QT 333 T 1 QTc 401 Conclusion Sinus tachycardia Normal axis T wave inversions in lead III and V1 No STEMI Electronically signed by : Choco Roy, 11/08/2024 17:30:01
--- NOTE | 2024-11-08 07:23 | ED_ITS ---
Discharge Plan Disposition Patient Disposition: Xfer Other Condition: Good Prescriptions Prescriptions: No Action No Known Home Medications Referrals Follow up/Referrals: Benny Gonzalez DO [Primary Care Provider, Family Practice] - See instructions Clinical Impressions Clinical Impression: Symptomatic cholelithiasis, Acute kidney injury, Intractable cyclical vomiting with nausea, Cancer, metastatic to liver Stand Alone Forms Stand Alone Forms: Transfer Record - ED Print Language Print Language: Norwegian Discharge ED Provider: Choco Roy General Adult HPI General Chief complaint: Nausea/Vomiting/Diarrhea Stated complaint: high heartrate, vomiting, chills Time Seen by Provider: 11/08/24 07:05 Mode of Arrival: Ambulatory Source of Information: Patient and Spouse Description of Symptoms (Recalled from ER Triage Doc. by RN): pt reports being unable to eat,feels dehydrated. 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 also having issues with her gallbladder but is unsure of the plans for either. 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 The patient was seen in our emergency department last week on 10/27/2024 for very similar symptoms. She arrived hypertensive and tachycardic and had multiple liters of saline without improvement in her heart rate. She had a leukocytosis and was started on broad-spectrum antibiotics with concern for sepsis and was admitted to the hospital. She underwent a CT scan of the abdomen and pelvis that showed cholelithiasis without overt evidence of cholecystitis. At that time she had a transaminitis with an elevated bilirubin and her clinical picture was unclear as to whether she was experiencing cholangitis, choledocholithiasis, or something more compatible with cancer induced intractable nausea and vomiting versus a community-acquired viral syndrome. The patient was admitted for 24 hours and was able to tolerate oral intake without any further nausea or vomiting and her abdominal pain ultimately resolved with normalization of her vital signs. Therefore it was felt that she had maximally benefited from hospitalization and she was discharged home The patient tells me today that since the time of discharge her symptoms have essentially persisted every single day. She is telling me that she can hold down some liquids but she is holding down no solids and she feels very dry and dehydrated. She also tells me that she is experiencing some right upper quadrant and epigastric abdominal pain. She denies chest pain or shortness of breath. No lower extremity erythema or edema. She is not having diarrhea and states that she is rather constipated and has not had a normal bowel movement in several days. Related Data Home Medications ?Medication ?Instructions ?Recorded ?Confirmed No Known Home Medications 10/28/2410/11 Allergies Allergy/AdvReac Type Severity Reaction Status Date / Time No Known Allergies Allergy Verified 11/04/24 14:24 [facility] Disclaimer: The information contained in this section may have been updated after the patient was seen, as this information can be updated by other users. 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 Liver mass Surgical History H/O hysterectomy with oophorectomy Social History Smoking Status: Current every day smoker alcohol intake: never current occupational status: employed Travel in the last 8 weeks?: None Other Medical History Have you received the Flu Vaccine for this season: No Have you received the Pneumonia Vaccine: No ROS Obtained: Yes Systems reviewed as appropriate & no additional complaints except as documented Physical Exam General General appearance: other (See MDM) Respiratory Respiratory exam: Present other (See MDM) Cardiovascular Cardiovascular exam: Present other (See MDM) Neurological Exam Neurological exam: Present other (See MDM) Medical Decision Making Medical Records Medical records reviewed: Yes I reviewed the patient's medical records. Screening: Per USPSTF and CDC recommendations, given the prevalence of disease in our region, it is our hospital?s policy to screen for HIV and viral Hepatitis for all patients aged 18 and over and those with ongoing risk factors. Paul Inquiry Pt receiving controlled substance: No Paul was queried for this patient: No Vital Signs: 11/08/24 07:10 11/08/24 08:09 11/08/24 08:30 Temperature 97.9 F Temperature Source Oral Pulse Rate 110 H 89 Pulse Rate [Right] 106 H Respiratory Rate 20 30 H 22 Blood Pressure 142/84 H 166/96 H Blood Pressure [Right Arm] 170/87 H Blood Pressure Mean [Right Arm] 114 02 Sat by Pulse Oximetry 97 95 97 Oxygen Delivery Method Room Air 11/08/24 08:33 11/08/24 09:00 11/08/24 09:30 Temperature Temperature Source Pulse Rate 88 89 82 Pulse Rate [Right] Respiratory Rate 20 27 H 22 Blood Pressure 158/92 H 180/88 H 168/92 H Blood Pressure [Right Arm] Blood Pressure Mean [Right Arm] 02 Sat by Pulse Oximetry 95 97 96 Oxygen Delivery Method Room Air Lab Data Lab Results 11/08/24 07:36: WBC 14.7 H, RBC 3.57 L, Hgb 9.4 L, Hct 29.0 L, MCV 81.2, MCH 26.3 L, MCHC 32.4, RDW 15.9, Plt Count 292, MPV 9.2, Neut % (Auto) 84.2 H, Lymph % (Auto) 6.7 L, Swisher % (Auto) 6.5, Eos % (Auto) 1.5, Baso % (Auto) 0.5, Neut # (Auto) 12.4 H, Lymph # (Auto) 1.0, Swisher # (Auto) 1.0, Eos # (Auto) 0.2, Baso # (Auto) 0.1, APTT 26.0 L, Sodium 139, Potassium 3.1 L, Chloride 106, Carbon Dioxide 22, Anion Gap 14.1, BUN 23 H, Creatinine 2.10 H, Estimated Creat Clear 59, Estimated GFR 25 L, Est GFR ( Amer) 31 L, Glucose 115 H, Lactate 1.1, Calcium 8.9, Total Bilirubin 1.6 H, GGT 113 H, AST 54 H, ALT 27, Alkaline Phosphatase 281 H, Troponin I < 0.01, Total Protein 7.2, Albumin 3.5, Globulin 3.7 H, Albumin/Globulin Ratio 0.9 L, Lipase 34 11/08/24 08:06: Urine Color Dark yellow, Urine Appearance Clear, Urine pH 6.0, Ur Specific Tingley 1.020, Urine Protein 1+ A, Urine Glucose (UA) Negative, Urine Ketones 1+, Urine Blood 1+ A, Urine Nitrate Negative, Urine Bilirubin 1+ A , Urine Urobilinogen 2.0, Ur Leukocyte Esterase Negative, Urine RBC Occasional, Urine WBC 5-10, Ur Squamous Epith Cells 20-50, Urine Bacteria Trace 11/08/24 08:35: SARS-CoV-2 (PCR) Not detected, Influenza Type A (PCR) Not detected, Influenza Type B (PCR) Not detected, RSV (PCR) Not detected, Rhinovirus (PCR) Not detected 11/08/24 07:36 11/08/24 07:36 Orders (Tests/Meds): ED MEDICATIONS Generic Name Dose Route Start Last Admin Trade Name Freq PRN Reason Stop Dose Admin Heparin Sodium/Dextrose 500 mls @ 40 mls/hr 11/08/24 09:45 11/08/24 09:45 Heparin 25,000 Units In D5w 500ml Premix IV 12/08/24 09:44 2,000 units/hr .[id number] LIAT 40 mls/hr 2,000 UNITS/HR Administration Discontinued Medications Generic Name Dose Route Start Last Admin Trade Name Freq PRN Reason Stop Dose Admin Diphenhydramine HCl 25 mg 11/08/24 07:19 11/08/24 08:06 Diphenhydramine 50mg/Ml Vial IV 11/08/24 07:20 25 mg ONCE ONE Administration Heparin Sodium (Porcine) 8,900 unit 11/08/24 09:45 11/08/24 09:45 Heparin Sodium 5,000 Unit/Ml Vial IV 11/08/24 09:46 8,900 unit ONCE ONE Administration Lactated Ringer's 1,000 mls @ 999 mls/hr 11/08/24 07:19 11/08/24 09:43 Lactated Ringer's 1000 Ml Bag IV 11/08/24 08:19 Infused .Q1H1M ONE Infusion Prochlorperazine Edisylate 10 mg 11/08/24 07:19 11/08/24 08:06 Prochlorperazine 10mg/2ml Vial IV 11/08/24 07:20 10 mg ONCE ONE Administration ORDERS Category Date Time Status POCUS Point of Care (ER Only) Stat Exams 11/08/24 07:19 Ordered CBC w/Auto Diff [Complete Blood Count Auto Diff] Stat Lab 11/08/24 07:36 Completed CMP [Comprehensive Metabolic Panel] Stat Lab 11/08/24 07:36 Completed GGT [Gamma Glutamyl Transpeptidase] Stat Lab 11/08/24 07:36 Completed Heparin drip PTT [PTT Heparin (inpatient only)] Stat Lab 11/08/24 07:36 Completed Heparin drip PTT [PTT Heparin (inpatient only)] Stat Lab 11/08/24 11:00 Ordered Lactic Acid Stat Lab 11/08/24 07:36 Completed Lipase Stat Lab 11/08/24 07:36 Completed Mini Respiratory Panel Stat Lab 11/08/24 08:35 Completed Troponin I Q3H Lab 11/08/24 10:30 Ordered Troponin I Q3H Lab 11/08/24 13:30 Ordered Troponin I Stat Lab 11/08/24 07:36 Completed UA [Urinalysis and Microscopic] Stat Lab 11/08/24 08:06 Completed ECG Data Tracing #1: I reviewed this ECG and interpreted as documented below: EKG personally interpreted by me demonstrates sinus tachycardia with a rate of 115 bpm, normal axis, no VA prolongation, narrow QRS with incomplete right bundle branch block morphology, no QTc prolongation. There are subtle T wave inversions in lead III as well as in lead V1 which can be seen in the setting of pulmonary embolism. Medical Decision Narrative: In summary, this is a 44-year-old female patient who is presenting to the emergency department today for evaluation of nausea, vomiting, malaise, inability to tolerate oral intake, as well as right upper quadrant and epigastric abdominal pain. Comorbidities include a past medical history of uterine cancer with mets to the liver and spleen that was previously followed at the [facility] before being lost to follow-up. Additionally, the patient was recently admitted to our hospital and had a CT scan showing cholelithiasis. On initial evaluation of the patient she appeared uncomfortable and was tachycardic, but she was hemodynamically stable, saturating well on room air, and was neurologically intact. On physical examination she is appropriately oriented and interactive with a GCS of 15. Heart and lungs are clear to auscultation bilaterally. She has mild abdominal tenderness in the epigastric and right upper quadrant region. There is no obvious kwaku peritonitis. She has no lower extremity erythema or edema. Mucous membranes do appear dry. Differential diagnosis to include pulmonary embolism, cholelithiasis, choledocholithiasis, pancreatitis, small bowel obstruction, dehydration, acute kidney injury, electrolyte derangement, worsening metastatic spread of disease, among others. Initial workup included hematologic labs including a troponin as well as an EKG. EKG as outlined above does show an incomplete right bundle branch block which is unchanged from prior the patient also has T wave inversions in lead III and V1 which has specificity for pulmonary embolism. I do feel it is prudent to rule this out with a CT PE protocol. We will also obtain a CT scan of the abdomen pelvis with IV contrast given her right upper quadrant and epigastric abdominal pain. Initial interventions included 1 L bolus of lactated Ringer's as well as 10 mg of Compazine and 25 mg of IV Benadryl. Labs were personally interpreted by me demonstrate a leukocytosis of 14.7, this is increased from prior of 8. Additionally she does have a neutrophilic predominance. Otherwise her CMP shows a creatinine of 2.1 and her baseline is 0.7 indicating acute kidney injury. Transaminases including AST and alkaline phosphatase as well as gamma-glutamyl transferase are higher than prior. She also has a persistent hyperbilirubinemia of 1.6. We were going to proceed with a CT PE study as well as a CT scan of the abdomen and pelvis with contrast for further workup, however the patient's GFR has decreased from 90-25 and she does have an acute kidney injury so we deferred contrasted scans at this time. Given my clinical suspicion for pulmonary embolism we did empirically start the patient on a heparin drip. Heparin was chosen as preferred to Lovenox due to her acute kidney injury. After 1 L of lactated Ringer's the patient's heart rate did improve, so her tachycardia may have just been due to sheer dehydration. I did perform a bedside POCUS assessment that showed gallstones within the gallbladder with no pericholecystic fluid and mild thickening of the gallbladder wall. Her clinical picture certainly could be consistent with symptomatic cholelithiasis with intractable nausea and vomiting leading to acute kidney injury. However, this could also be intractable nausea and vomiting from her tumor burden in her abdomen. The patient was admitted to our hospital last week and was medically optimized before discharge home. However, I do not feel that our hospital can offer her much additional help. She saw oncology here at our hospital in the clinic 3 days ago and in their note they suggested that she should return to the [facility] for formal evaluation by gynecology oncology. Ultimately, I feel that this patient is very medically complex and would be better served at a tertiary care facility where she can receive higher level of care with gynecology oncology I have had an interactive discussion with [facility] and spoken to Dr. Beverly at the transfer center who has agreed to accept this patient for transfer. Patient was transported on a heparin drip with maintenance IV fluids running in stable condition. Procedures Miscellaneous Procedure Procedure Performed: Limited cardiac ultrasound note Indication: Tachycardia Identified cardiac views: Parasternal long axis Parasternal short axis Apical four-chamber Subxiphoid Findings: Cardiac activity: Present Gross wall motion: Normal Pericardial effusion: Absent Right heart strain: Absent Impression: normal limited cardiac echo. no pericardial effusion. Grossly normal ejection fraction. Unable to see all 4 chambers at the same time on periapical four-chamber, however was able to achieve great 2 chamber views of the right heart. TAPSE is 18 Images were uploaded To permanent archive This study was technically adequate CPT: 81045 This study was performed by me and I personally interpreted all images/videos. Based on my clinical judgment these images were adequate and did not necessitate further imaging. Limited right upper quadrant ultrasound Indication: Abdominal pain Identified structures: Gallbladder, gallbladder wall, bile duct Findings: Sonographic Park sign: Absent Gallstones: Present Sludge: Absent Pericholecystic fluid: Absent Maximal gallbladder wall thickness (mm): Greater than 3-4 mm abnormal Common bile duct with (mm): 3 to 4 mm normal Impression: Relatively normal-appearing gallbladder with cholelithiasis present and very mild thickening of the gallbladder wall Images were saved to permanent archive This study was technically adequate CPT: 29458-82 This study was performed by me and I personally interpreted all images/videos. Based on my clinical judgment these images were adequate and did necessitate further imaging. Critical Care Critical Care Time Critical Care Time: No
[2024-11-08 07:45] LABS: Hematocrit 29.0 % (37.0-47.0); Hemoglobin 9.4 g/dL (12.2-16.2); Immature Granulocytes % 0.6 %; Mean Corpuscular HGB Conc 32.4 g/dL (31.8-35.4); Mean Corpuscular Hemoglobin 26.3 pg (27.0-31.2); Mean Corpuscular Volume 81.2 fl (81-99); Nucleated Red Blood Cells % 0 %; Platelet Count 292 K/mm3 (142-424); Red Blood Count 3.57 M/mm3 (4.20-5.40); Red Cell Distribution Width-SD 46.9 fL; White Blood Count 14.7 K/mm3 (4.8-10.8)
[2024-11-08 08:05] LABS: Alanine Aminotransferase 27 U/L (12-78); Albumin Level 3.5 g/dl (3.5-5.0); Albumin/Globulin Ratio 0.9 (1.1-1.8); Alkaline Phosphatase 281 U/L (38-126); Anion Gap 14.1 mEq/L (5-15); Aspartate Amino Transferase 54 U/L (14-36); Bilirubin,Total 1.6 mg/dl (0.2-1.3); Blood Urea Nitrogen 23 mg/dl (7-17); Calcium 8.9 mg/dl (8.4-10.2); Carbon Dioxide 22 mmol/L (22.0-30.0); Chloride 106 mmol/L (98-107); Creatinine Clearance Estimated 59 mL/min (50-200); Creatinine,Serum 2.10 mg/dl (0.52-1.04); Estimated Glomerular Filt Rate 25 ml/min (>60); GFR (African American) 31 ML/MIN (>60); Gamma Glutamyl Transpeptidase 113 U/L (12-43); Globulin 3.7 g/dL (1.3-3.2); Glucose 115 mg/dl (74-100); Lipase 34 U/L (23-300); Potassium 3.1 mmoL/L (3.5-5.1); Sodium 139 mmol/L (136-145); Total Protein,Serum 7.2 g/dl (6.3-8.2)
[2024-11-08] MEDS: PROCHLORPERAZINE 10MG/2ML VIAL 10 MG IV (08:06)
[2024-11-08] MEDS: LACTATED RINGERS 1000ML 1,000 ML 999 ML IV (08:06)
[2024-11-08 08:11] LABS: Microscopic, Urine URINE MICROSCOPIC (MICROSCOPIC)
[2024-11-08 08:31] LABS: Troponin I < 0.01 ng/ml (0.00-0.034)
[2024-11-08 08:45] LABS: Coronavirus 19, PCR Not Detected (NotDetected); Influenza A, PCR Not Detected (NotDetected); Influenza B, PCR Not Detected (NotDetected)
[2024-11-08 08:46] LABS: Glucose,Urine (UA) Negative (Negative); Ketones,Urine 1+ (Negative); Leukocyte Esterase,Urine Negative (Negative); PH,Urine 6.0 (5.0-8.5); Protein,Urine 1+ (Negative); Specific Gravity, Urine 1.020 (1.005-1.030); Urobilinogen,Urine 2.0 EU/dl (0.2)
--- NOTE | 2024-11-08 08:56 | HMH.ITSTN ---
per Dr. Roy, hold off on scans due to low GFR
--- NOTE | 2024-11-08 09:04 | PC.NURSE ---
per the plan is to reach out to [facility] about transfer. blood cultures deferred at this time per .
[2024-11-08 09:07] LABS: Bilirubin,Urine 1+ (Negative); Color,Urine Dark Yellow (Yellow)
--- NOTE | 2024-11-08 09:11 | PC.NURSE ---
currently on phone with per Dr Roy for pt transfer for JOSIAS and symptomatic cholelithiasis.
[2024-11-08 09:14] LABS: Bacteria,Urine Trace /lpf; RBC,Urine Occasional #/hpf (0-3); Squamous Epithelial Cell,Urine 20-50 #/hpf (0-5)
--- NOTE | 2024-11-08 09:14 | PC.NURSE ---
Dr Roy is currently on phone with [facility] at this time
--- NOTE | 2024-11-08 09:20 | PC.NURSE ---
MD speaking with regarding transfer
[2024-11-08] MEDS: HEPARIN 25,000 UNITS/D5W 500 ML 40 UNIT IV (09:45)
[2024-11-08] MEDS: HEPARIN SODIUM 5,000 UNIT/ML VIAL 8900 UNIT IV (09:45)
[2024-11-08 10:16] LABS: PTT Heparin (inpatient only) 26.0 Seconds (50-75)
== END 2024-11-08 10:23 | disposition other institution (70) ==
PROVIDERS: Emergency Provider Student in an Organized Health Care Education/Training Program; PCP Internal Medicine
DX: R11.15 Cyclical vomiting syndrome unrelated to migraine (principal); N17.9 Acute kidney failure, unspecified; K80.20 Calculus of gallbladder without cholecystitis without obstruction; C78.7 Secondary malignant neoplasm of liver and intrahepatic bile duct
CPT/HCPCS: 80053; 81001; 82977; 83605; 83690; 84484; 85025; 85730; 87631; 93005; 96361; 96374; 96375; 99285; J0780; J1200; J1644; J7120

== ENCOUNTER 2024-11-25 10:33 | Outpatient (CLI) | payer MEDICAID, SELFPAY ==
--- OUTSIDE RECORDS SUMMARY | 2024-11-08 11:13 | XMS_ITS | Encounter Summary ---
Author Organization [facility] Address [address] [place] [address] Care Team Providers Care Sanitation Superintendent Name Role Phone Pcp, No Primary Care Provider Unavailabl e Reason for Referral * Imaging (Routine) - Closed Specialty Diagnoses / Procedures Referred By Contac t Referred To Contact Radiology Diagnoses Metastasis to liver (CMS/HCC) Procedures US Guided Needle Biopsy Liver CT Guided Biopsy Liver Franko Nava MD [address] [place] [phone] Phone: tel: fax: Referral ID Status Reason Start Date Expiration Date Visits Re quested Visits Authorized [id number] Closed 11/14/2024 05/16/2026 1 1 * Imaging (Routine) - Closed Specialty Diagnoses / Procedures Referred By Contac t Referred To Contact Radiology Diagnoses Metastasis to liver (CMS/HCC) Procedures IR Embolization Tumor or Ischemia or Infarction Franko Nava MD [address] [place] [phone] Phone: tel: fax: Referral ID Status Reason Start Date Expiration Date Visits Re quested Visits Authorized [id number] Closed 11/14/2024 05/16/2026 1 1 Reason for Visit * Reason Comments Multiple Complaints * Auth/Cert (Routine) Specialty Diagnoses / Procedures Referred By Contac t Referred To Contact Diagnoses SBO (small bowel obstruction) (CMS/HCC) H/O cholelithiasis Other cholelithiasis without obstruction JOSIAS, symptomatic chololithiasis Rui Leonard, DO [id number] [place] [address] Phone: tel: fax: [facility] Inpatient [address] [place] [address] Phone: tel: Referral ID Status Reason Start Date Expiration Date Visits Re quested Visits Authorized [id number] 1 1 Encounter Details Date Type Department Care Team (Late st Contact Info) Description 11/08/2024 11:13 AM EDT - 11/14/2024 8:50 PM EDT Hospital Encounter [facility] Inpatient [address] [place] [phone] Long Rios MD [address] [place] [address] Mi Pascal, DO [address] [place] [address] Rui Leonard, DO [address] [address] Morelia Galvez MD [address] [address] Korey Rolle MD [address] [facility] [address] [phone] Karol Jane MD [address] [facility] [address] [place] [address] Metastasis to liver (CMS/HCC) (Primary Dx); Calculus [...] any time in the past 12 m [facility], were you homeless or living in a residential (including now)? No 11/11/2024 [facility] Utilities Answer Date Recorded In the past 12 months has th e electric, gas, oil, or water company threatened to shut off services in your [...] call: [facility] Interventional Radiology Clinic at [phone] Sunday - Sunday 8:00 AM to 4:30 PM After hours, weekends, and holidays please call [phone] and ask for the Interventional Radiology provider/Resident on-call For Emergencies please go to the nearest Emergency Room or dial 911. Intervention Radiology Appointments: If you need to reschedule a procedure, please call our Schedulers at [phone], option [phone]. If you need to schedule or reschedule a clinic appointment, please call [phone]. [facility] Radiology Clinic [facility] [phone] Follow-Up / Post Discharge Instructions Medication Recommendations: - Okay to resume home medications - Take all medications as prescribed. - Acetaminophen (Tylenol) 650mg every 4-hrs alternating with ibuprofen 600mg every 6hrs for pain control. - Take oxycodone 5mg q4h prn pain Call MD information scientist for GYO service if: - you have a fever of 100.4 F or more - vaginal bleeding similar to a period - uncontrolled pain - difficulty with urination - persistent nausea/vomiting Follow up: Dr. Karol Jane - [facility] [address] [facility] [address], [place] [address] documented in this encounter Medications at Time [...] LIGATION N/A Tubal ligation from [facility] [3] Social History Tobacco Use Smoking status: [...] been discussed with the patient and/or their parts sales representative. All questions answered and they agree [...] mg Oral q6h LIAT Jennifer Capps E, WATER RESOURCE ENGINEERING SPECIALIST 500 mg at 11/13/24 1810 benzocaine-menthol (Chloraseptic) [...] mg Oral 4x daily Jennifer Capps E, WATER RESOURCE ENGINEERING SPECIALIST 500 mg at 11/13/24 2019 metoclopramide (Reglan) tablet 5 mg 5 mg Oral q6h PRN Ayan Fuentes MD 5 mg at 11/09/24 1548 Or metoclopramide (Reglan) injection 5 mg 5 mg Intravenous q6h PRN Ayan Fuentes MD 5 mg at 11/11/24 0708 ondansetron ODT (Zofran-ODT) disintegrating tablet 4 mg 4 mg Oral q6h PRN Yunier Gamino MD 4 mg at 11/12/24837 Or ondansetron (Zofran) injection 4 mg 4 [...] Travel Screening No screening recorded since 11/12/24 2025 Travel History Travel since 10/13/24 No documented [...] [facility] TUBAL LIGATION N/A Tubal ligation from [facility] [3] Social History Tobacco Use Smoking status: [...] 500 mg Oral q6h LIAT Jennifer Capps, WATER RESOURCE ENGINEERING SPECIALIST 500 mg at 11/13/24 1810 benzocaine-menthol (Chloraseptic) [...] 500 mg Oral 4x daily Jennifer Capps, WATER RESOURCE ENGINEERING SPECIALIST 500 mg at 11/13/242018 metoclopramide (Reglan) tablet 5 mg 5 mg [...] Jane MD PCP name and Address: Pcp, [place] [address] Referring provider name and address: Choco Roy, [address] [place] [address] Chief Concern, Brief History of Present Illness, and Hospital Course Radha Aparicio is a 44 y.o. female with history of high grade endometroid adenocarcinoma that [facility] saw [facility] team and was lost to follow up. [...] follow up scheduled with Dr. Veloz at [facility] on 11/25. Surgeries and Procedures Procedures [...] Your Medications These medications were sent to [facility] [place], [place] - [address] [facility] [address] acetaminophen 500 MG tablet ondansetron ODT 4 [...] oxycodone 5mg q4h prn pain Call MD information scientist for GYO service if: - you have a fever of 100.4 F or more - vaginal bleeding similar to a period - uncontrolled pain - difficulty with urination - persistent nausea/vomiting Follow up: Dr. Karol Jane - [facility] [address] [facility] Floor, [address], [place] [address] Outpatient Follow-Up Future Appointments Date Time Provider Department Center 11/14/2024 2:30 PM [facility] Discharge Disposition/Condition Disposition: Home Condition: [...] Note Radha Aparicio 44 y.o. female CSN: [id number] Admission: 11/08/2024 11:13 AM Primary Problem: Calculus of gallbladder without cholecystitis without obstruction Primary Systems Auditor: self/family Assistance Available at Discharge: Kaushal Aparicio (Brother) and her dad Current Outpatient/Agency/Support Group: clinic(s) Availability of Care Givers (#Hours): 24 hours Family/Systems Auditor(s) Willingness Assessed to care for patient at home: Yes Family/Systems Auditor(s) Readiness Assessed to care for patient at [...] team. Patient reports home assistance and transport. [id number] enrollment complete. Radha Langston RN * Progress [...] per chart review) with Dr. Veloz at [facility] - Lost to follow up due [...] several large liver lesions (right dome -- [id number] (enlarged from 4.7 x 4.2) & 10.5 [...] to follow. Please messageon-call GYO resident via [employer] Secure Chat or page [phone] for questions or concerns regarding this patient's GYO care. Morena Gray MD Obstetrics & Gynecology, PGY-2 [facility] Cosigned by Karlo Jane MD at 11/14/2024 2:08 PM EDT [...] per chart review) with Dr. Veloz at [facility] - Lost to follow up due [...] several large liver lesions (right dome -- [id number] (enlarged from 4.7 x 4.2) & 10.5 [...] to follow. Please messageon-call GYO resident via [employer] Secure Chat or page [phone] for questions or concerns regarding this patient's GYO care. Morena Gray MD Obstetrics & Gynecology, PGY-2 [facility] Cosigned by Karol Jane MD at [...] Interventions: pain management plan reviewed with patient/caregiver [id number] dosing utilized Intervention: Provide Person-Centered Care Flowsheets (Taken 11/12/20242351) Trust Relationship/Rapport: choices provided thoughts/feelings acknowledged * [...] patient/caregiver Intervention: Provide Person-Centered Care Flowsheets (Taken 11/12/2024408) Trust Relationship/Rapport: emotional support provided empathic listening [...] per chart review) with Dr. Veloz at [facility] - Lost to follow up due [...] several large liver lesions (right dome -- [id number] (enlarged from 4.7 x 4.2) & 10.5 [...] to follow. Please messageon-call GYO resident via [employer] Secure Chat or page [phone] for questions or concerns regarding this patient's GYO care. Morena Gray MD Obstetrics & Gynecology, PGY-2 [facility] Cosigned by Karol Jane MD at [...] Note Radha Aparicio 44 y.o. female CSN: [id number] Admission: 11/08/2024 11:13 AM Primary Problem: Calculus of gallbladder without cholecystitis without obstruction [facility] Consultant reviewed chart and spoke with patient to complete this Initial Case Management Assessment. PCP: Dr. Benny Gonzalez Emergency Contact: Extended Emergency Contact Information Primary Emergency Contact: Kaushal Aparicio Mobile Relation: Brother Preferred language: Ukrainian Security Alarm Technician needed? No Insurance: Primary Visit Coverage Payer Plan Sponsor Code Group Number Group Name [employer] [facility] . Primary Visit Coverage Subscriber Subscriber ID Subscriber Name Subscriber N Subscriber Address [id number] RADHA APARICIO [id number] [place] [address] Patient information: admit to with history of high grade endometroid adenocarcinoma previously admitted to Surgery for cholelithiasis. Confirmed home address and insurance information. Reports home assistance and transport. Pharmacy: [facility] Accompanied by/Relationship: aunt Jennifer and Clara at bedside for visit. Support System: Immediate family Daily Living Activities: Functional Status: Independent Living Arrangements: Parent/Bernardodian (reports she lives with her dad Conor) Type of Residence: Private residence [address] [place] [address] Current DME: Equipment Currently Used at Home: [...] Dialysis Services: none Living Will/Advance Directive/Power of Lead Project Engineer /Guardian: none Advance Directive: Not applicable Information [...] 11:30 AM EDT Associated Problem(s): Endometrial cancer (CMS/HCC) [facility] consultation * Progress Notes - Socrates Ganrica MD - 11/11/2024 11:28 AM EDT 11/11/24 Radha Larkin Markus HPI Radha Aparicio is a 44 y.o. female with history of endometrial cancer with possible metastasisto the liver presenting to 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 Morelia Galvez MD, FACS farmer general Trauma Acute Care Surgery * Care Plan - May Fitzpatrick RN - 11/11/2024 11:15 AM EDT Problem: Adult Inpatient Plan of Care Goal: Plan of Care Review Outcome: Ongoing, Progressing Flowsheets (Taken 11/11/2024 111) Progress: no change Plan of Care Reviewed With: patient Goal: Patient-Specific Goal (Individualized) Outcome: Ongoing, Progressing Flowsheets (Taken 11/11/2024825) Patient/Family-Specific Goals (Include Timeframe): Patient will remain free from falls/injury this shift Individualized Care Needs: Safety Anxieties, Fears or Concerns: Wants to speak to Oncology doctor Goal: Absence of Hospital-Acquired Illness or Injury Outcome: Ongoing, Progressing Intervention: Prevent Infection Flowsheets (Taken 11/11/2024 1113) Infection Prevention: hand hygiene promoted rest/sleep promoted [...] per chart review) with Dr. Veloz at [facility] - Lost to follow up due [...] several large liver lesions (right dome -- [id number] (enlarged from 4.7 x 4.2) & 10.5 [...] to follow. Please messageon-call GYO resident via [employer] Secure Chat or page [phone] for questions or concerns regarding this patient's GYO care. Morena Gray MD Obstetrics & Gynecology, PGY-2 [facility] Cosigned by Korey Rolle MD at [...] 11/10/20242309) Pain Management Interventions: medication (see MAR) [id number]-chh-fnknk dosing utilized pain management plan reviewed with patient/caregiver Intervention: Provide Person-Centered Care Flowsheets (Taken 11/10/20242309) Trust Relationship/Rapport: care explained empathic listening provided * Transfer of Care - Socrates Garnica MD - 11/10/2024 2:33 PM EDT Radha Aparicio is a 44 y.o. female with history of endometrial cancer with possible metastasisto the liver presenting to [facility] on 11/08/2024 with one week of nausea, vomiting, anorexia, and RUQ pain. US and CT demonstrated cholelithiasis and increase in interval of her liver metastaticlesion. Interval: VSS. AF. She continues to have RUQ pain though improved today. States that she continues to have nausea but currently no vomiting. Has been able to tolerate some small food by mouth today. Will transfer care to [facility] today given patient history and clinical picture. Patient tolerating PO at time of transfer. Javier Garnica MD PGY-1, [facility] * Assessment & Plan Note - [...] 1:52 PM EDT Associated Problem(s): Endometrial cancer (CMS/HCC) [facility] consultation * Progress Notes - Socrates Garnica MD - 11/10/2024 11:20 AM EDT 11/10/24 Radha Aparicio [facility] Radha Aparicio is a 44 y.o. female with history of endometrial cancer with possible metastasisto the liver presenting to [facility] on 11/08/2024 with one week of nausea, vomiting, anorexia, and RUQ pain. US and CT demonstrated cholelithiasis and increase in interval of her liver metastaticlesion. Interval: VSS. AF. She continues to have RUQ pain though improved today. States that she continues to have nausea but currently no vomiting. Has been able to tolerate some small food. Likely not gallbladder related. 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 Morelia Galvez MD, FACS farmer general Trauma Acute Care Surgery * Consults - Michelle Ramos MD - 11/10/2024 10:11 AM EDTAssociated Order(s): IP CONSULT TO INTERVENTIONAL RADIOLOGY 11/10/24 Patient: Radha Aparicio Date of : 1980/44 y.o. Requesting Service: LICENSED PRACTICAL NURSE Chief complaint Abdominal pain and increase in [...] this patient. Michelle Ramos MD Interventional Radiology [phone] [1] Past Medical History: Diagnosis Date Disease of salivary gland, unspecified Parotid mass [2] Past Surgical History: Procedure Laterality Date HYSTERECTOMY N/A Hysterectomy from [facility] TUBAL LIGATION N/A Tubal ligation from [facility] [3] Social History Tobacco Use Smoking status: [...] per chart review) with Dr. Veloz at [facility] - Lost to follow up due [...] several large liver lesions (right dome -- [id number] (enlarged from 4.7 x 4.2) & 10.5 [...] to follow. Please messageon-call GYO resident via [employer] Secure Chat or page [phone] for questions or concerns regarding this patient's GYO care. Morena Gray MD Obstetrics & Gynecology, PGY-2 [facility] Cosigned by Korey Rolle MD at [...] IR biopsy * Care Plan - Edel Aguirre, RN - 11/09/2024 11:58 PM EDT Problem: [...] 11/09/2024 9:18 PM EDT 11/09/24 Radha Aparicio [facility] Radha Aparicio is a 44 y.o. female with history of endometrial cancer with possible metastasisto the liver presenting to [facility] on 11/08/2024 with one week of nausea, vomiting, anorexia, and RUQ pain. US and CT demonstrated cholelithiasis and increase in interval of her liver metastaticlesion. Interval: VSS. AF. She continues to have RUQ. States that she continues to have nausea but currently no vomiting. Has not been able to tolerate food well. Family expressed frustration of not knowing exactly what is going on. [facility] consulted due do increase in size of liver meds from endometrial cancer. Edited by: Ayan Fuentes MD at 11/09/2024 2112 Relevant review of systems was obtained as [...] by Drain (mL) 11/07/24 0700 - 11/07/24 1859 11/07/24 1900 - 11/08/24 0659 11/08/24 0700 - [...] Plan: [ ] f/u liver biopsy - [facility] consulted: IR consult for guided biopsy of [...] CT abdomen and pelvis completed and reviewed [facility] consultation I do not think her abdominal pain is consistent with acute cholecystitis and we discussed with the patient we would not proceed with operative intervention at this time Morelia Galvez MD, FACS farmer general Trauma Acute Care Surgery * Procedures - Gerardo Fabian RN - 11/09/2024 5:08 PM EDTAssociated Order(s): Insert peripheral IV Insert peripheral IV Performed by: Gerardo Fabian, RN Authorized by: Morelia Galvez MD Hand [...] Transparent semipermeable dressing * Consults - Christine Alvraes MD - 11/09/2024 4:38 PM EDTAssociated Order(s): [...] on imaging. [facility] when she was [facility] as [...] per chart review) with Dr. Veloz at [facility] - Lost to follow up due [...] several large liver lesions (right dome -- [id number] (enlarged from 4.7 x 4.2) & 10.5 [...] follow.. Please message on-call GYO resident via [employer] Secure Chat or page [phone] for questions or concerns regardingthis patient's care. Christine Morrison MD Obstetrics and Gynecology, PGY-3 [1] Past Medical History: Diagnosis Date Disease of salivary gland, unspecified Parotid mass [2] Past Surgical History: Procedure Laterality Date HYSTERECTOMY N/A Hysterectomy from [facility] TUBAL LIGATION N/A Tubal ligation from [facility] [3] Family History Problem Relation Name Age [...] Disorder Social Drivers of Health Received from [facility] Family and Community Support Received from [facility] Abuse Screen Received from [facility] Housing Stability [5] Allergies Allergen Reactions Carboplatin [...] of nausea are kept under control during 1780-4457 shift Individualized Care Needs: nausea/vomiting management Anxieties, [...] Intervention: Optimize Psychosocial Wellbeing Flowsheets (Taken 11/09/2024 1030) Supportive Measures: active listening utilized relaxation techniques [...] grade endometroid adenocarcinoma that previously saw the [facility] team and was lost to follow up. [...] follow up scheduled with Dr. Veloz at [facility] on 11/25. * Care Plan - [...] with possible metastasisto the liver presenting to [facility] on 11/08/2024 with one week of nausea, [...] that worsens after eating. She presented to [facility] a week ago for these symptoms, and was discharged after one day. She presented to the OSH again today, and was transferred to [facility] for concerns forcholelithiasis vs. PE. OSH was [...] Other Orders Ordered Status Ordering Provider 11/08/24 124 US Abdomen Focused Region GB, Bile Ducts [...] STAT (adult) Once Preliminary result [facility] ED Course as of 11/08/24 1456 Sat [...] patient was was signed out to the [facility] provider (Signed Out) Patient care assumed by [facility] Armaan campbell, at shift change, tentative plan [...] None Disposition Admit Admitting/Attending Physician: RUI LEONARD [[id number]] Provider Care Team: [facility] GENERAL SURGERY [...] Care Team (Late st Contact Info) Description 12/04/2024 10:00 AM EDT Office Visit [facility] [address] [place] [address] Karol Jane MD [address] [facility] [address] [place] [address] Pending Results Name Type Priority Associated Diagnoses Date /Time Karmen [place] Cancer Seek Hybrid + IHCs and Other Tests by Tumor Type Lab Routine 11/18/2024 2:55 PM EDT Scheduled Orders Name Type Priority Associated Diagnoses Order Schedule Fine needle aspiration - Core Biopsy Pathology and Cytology Routine Once (Lab) for 1 Occurrences starting 11/10/2024 until 11/10/2024 IR Anesthesia Request Procedures Routine Once for 1 Occurrences starting 11/10/2024 until 11/10/2024 IR Anesthesia Request Procedures Routine Once for 1 Occurrences starting 11/10/2024 until 11/10/2024 Carjesús [place] Cancer Seek Hybrid + IHCs and Other Tests by Tumor Type Lab Routine Once (Lab) f or 1 Occurrences starting 11/14/2024 until 11/14/2024 Fine needle aspiration - Core Biopsy Pathology and Cytology Routine Once (Lab) for 1 Occurrences starting 11/14/2024 until 11/14/2024 documented as of this encounter Procedures Procedure Name Priority Date/Time Associated Diagnosis Comments IONIZED CALCIUM, WHOLE BLOOD Pending Discharge 11/14/2024 [...] concern for intratumoral hemorrhage. Patient presents to [facility] for bland embolization of tumor. Additionally, rebiopsy of liver mass is planned due to possible progression. TECHNIQUE: Palm Gatherer: Franko Nava MD Secondary Access Manager: Luis Miguel Estes M.D. Rad Dose: [id number] [...] 5 F vascular sheath. Using a 5 Burmese contra 2 catheter, the celiac axis was [...] concern for [facility]atum[facility] hemorrhage. [facility]. Additionally, rebiopsy of liver mass isplanned due to possible progression. TECHNIQUE: Palm Gatherer: Franko Nava MD Secondary Access Manager: Luis Miguel Estes M.D. Rad Dose: 1674 [...] 5 F vascular sheath. Using a 5 Burmese contra 2catheter, the celiac axis was catheterized. [...] concern for intratumoral hemorrhage. Patient presents to [facility] for bland embolization of tumor. Additionally, rebiopsy of liver mass is planned due to possible progression. TECHNIQUE: Palm Gatherer: Franko Nava MD Secondary Access Manager: Luis Miguel Estes M.D. Rad Dose: 1674 [...] 5 F vascular sheath. Using a 5 Burmese contra 2 catheter, the celiac axis was [...] concern for intratumoral hemorrhage. [place] [facility] [place]. Additionally, rebiopsy of liver mass isplanned due to possible progression. TECHNIQUE: Palm Gatherer: Franko Nava MD Secondary Access Manager: Luis Miguel Estes M.D. Rad Dose: 1674 [...] 5 F vascular sheath. Using a 5 Burmese contra 2catheter, the celiac axis was catheterized. [...] IMG IR PROCEDURES Final Resu lt * Phosphorus, Plasma (11/14/2024 1:07 AM EDT) Phosphorus, Plasma 3.6 2.5 - 4.5 mg/dL 11/14/2024 2:18 AM EDT [facility] Blood Venous blood specimen / Unknown Venipuncture / Unknown 11/14/2024 1:07 AM EDT 11/14/2024 1:49 AM EDT us Korey Rolle MD LAB BLOOD ORDERABLES Final Result Performing Organization Address City/[facility] Co de Phone Number [facility] [address] [place] [address] * Magnesium, Plasma (11/14/2024 1:07 AM EDT) Magnesium, Plasma 1.9 1.9 - 2.4 mg/dL 11/14/2024 2:18 AM EDT [facility] Blood Venous blood specimen / Unknown Venipuncture / Unknown 11/14/2024 1:07 AM EDT 11/14/2024 1:49 AM EDT us Korey Rolle MD LAB BLOOD ORDERABLES Final Result Performing Organization Address [facility] Co md Phone Number [facility] [address] [place] [address] * (ABNORMAL) Ionized calcium, whole blood (11/14/2024 1:07 AM EDT) Ionized Calcium, Whole Blood 4.4(L) 4.6 - 5.1 mg/dL LAB HEMATOLOGY METHOD 11/14/2024 1:58 AM EDT [facility] Blood Venous blood specimen / Unknown Venipuncture / Unknown 11/14/2024 1:07 AM EDT 11/14/2024 1:50 AM EDT us Korey Rolle MD LAB BLOOD ORDERABLES Final Result Performing Organization Address [facility] Co de Phone Number [facility] [address] [place] [address] * (ABNORMAL) Basic metabolic panel (11/14/2024 1:07 AM EDT) Glucose, Plasma 85 74 - 99 mg/dL 11/14/2024 2:18 AM EDT [facility] BUN, Plasma 12 7 - 21 mg/dL 11/14/2024 2:18 AM EDT [facility] Creatinine, Plasma 0.99 0.60 - 1.10 mg/dL 11/14/2024 2:18 AM EDT [facility] BUN/Creatinine Ratio 12 11/14/2024 2:18 AM EDT [facility] Sodium, Plasma 142 136 - 145 mmol/L 11/14/2024 2:18 AM EDT [facility] Potassium, Plasma 3.7 3.6 - 4.9 mmol/L 11/14/2024 2:18 AM EDT [facility] Chloride, Plasma 108(H) 97 - 107 mmol/L 11/14/2024 2:18 AM EDT [facility] CO2, Plasma 21(L) 22 - 29 mmol/L 11/14/2024 2:18 AM EDT [facility] Anion Gap 13 6 - 16 mmol/L 11/14/2024 2:18 AM EDT [facility] Total Calcium, Plasma 8.1(L) 8.9 - 10.2 mg/dL 11/14/2024 2:18 AM EDT [facility] eGFRcr 71.4 mL/min/1.7 3m*2 11/14/2024 2:18 AM EDT [facility] Comment:Reported eGFRcr in m L/min/1.73m2 is based the CKD-EPI 2020 equation that does not use a race coefficient. Blood Venous blood specimen / Unknown Venipuncture / Unknown 11/14/2024 1:07 AM EDT 11/14/2024 1:49 AM EDT Korey Rolle MD LAB BLOOD ORDERABLES Final Result [facility] [address] [place] [address] * (ABNORMAL) CBC (11/14/2024 1:07 AM EDT) WBC Count 9.73 3.70 - 10.30 10*3/uL LAB HEMATOLOGY METHOD 11/14/2024 1:57 AM EDT [facility] RBC Count 2.92(L) 3.90 - 5.20 10*6/uL LAB HEMATOLOGY METHOD 11/14/2024 1:57 AM EDT [facility] HGB 7.8(L) 11.2 - 15.7 g/dL LAB HEMATOLOGY METHOD 11/14/2024 1:57 AM EDT [facility] HCT 24.9(L) 34.0 - 45.0 % LAB HEMATOLOGY METHOD 11/14/2024 1:57 AM EDT [facility] Platelet Count 237 155 - 369 10*3/uL LAB HEMATOLOGY METHOD 11/14/2024 1:57 AM EDT [facility] MCV 85 79 - 98 fL LAB HEMATOLOGY METHOD 11/14/2024 1:57 AM EDT [facility] MCH 26.7 26.0 - 32.0 pg LAB HEMATOLOGY METHOD 11/14/2024 1:57 AM EDT [facility] MCHC 31.3 30.7 - 35.5 g/dL LAB HEMATOLOGY METHOD 11/14/2024 1:57 AM EDT [facility] RDW 16.6(H) 11.5 - 14.5 % LAB HEMATOLOGY METHOD 11/14/2024 1:57 AM EDT [facility] MPV 9.6 8.8 - 12.5 fL LAB HEMATOLOGY METHOD 11/14/2024 1:57 AM EDT [facility] nRBC 0.0 <=0.0 per 100 WBCs LAB HEMATOLOGY METHOD 11/14/2024 1:57 AM EDT [facility] Blood Venous blood specimen / Unknown Venipuncture / Unknown 11/14/2024 1:07 AM EDT 11/14/2024 1:49 AM EDT Korey Rolle MD LAB BLOOD ORDERABLES Final Result [facility] [address] [place] [address] * (ABNORMAL) Fibrinogen (11/14/2024 1:07 AM EDT) Fibrinogen, Quantitative (Clottable) 512(H) 208 - 459 mg/dL LAB COAGULATION METHOD 11/14/2024 2:09 AM EDT [facility] Blood Venous blood specimen / Unknown Venipuncture / Unknown 11/14/2024 1:07 AM EDT 11/14/2024 1:48 AM EDT us Karol Jane MD LAB BLOOD ORDERABLES Final Re sult Performing Organization Address [facility] de Phone Number [facility] [address] [place] [address] * (ABNORMAL) APTT (11/14/2024 1:07 AM EDT) aPTT 23(L) 25 - 35 sec LAB COAGULATION METHOD 11/14/2024 2:09 AM EDT [facility] Blood Venous blood specimen / Unknown Venipuncture / Unknown 11/14/2024 1:07 AM EDT 11/14/2024 1:48 AM EDT us Karol Jane MD LAB BLOOD ORDERABLES Final Re sult Performing Organization Address [facility] de Phone Number [facility] [address] [place] [address] * (ABNORMAL) Protime-INR (11/14/2024 1:07 AM EDT) Prothrombin Time 14.8(H) 12.0 - 14.3 sec LAB COAGULATION METHOD 11/14/2024 2:09 AM EDT [facility] INR 1.2(H) 0.9 - 1.1 LAB COAGULATION METHOD 11/14/2024 2:09 AM EDT [facility] Blood Venous blood specimen / Unknown Venipuncture / Unknown 11/14/2024 1:07 AM EDT 11/14/2024 1:48 AM EDT Narrative [facility] - 11/14/2024 2:09 AM EDT OPTIMAL INR RANGES FOR PATIENT ON ORAL ANTICOAGULANT THERAPY Prevention of venous thromboembolism INR 2.0 to 3.0 In patients with heart disease: Atrial fibrillation INR 2.0 to 3.0 Valvular heart disease INR 2.0 to 3.0 Tissue heart valves INR 2.0 to 3.0 Mechanical prosthetic valves INR 2.5 to 3.5 Prevention of recurrent AL INR 2.5 to 3.5 us Karol Jane MD LAB BLOOD ORDERABLES Final Re sult Performing Organization Address [facility] Co de Phone Number [facility] [address] [place] [address] * Phosphorus, Plasma (11/13/2024 3:01 AM EDT) Phosphorus, Plasma 3.6 2.5 - 4.5 mg/dL 11/13/2024 3:34 AM EDT [facility] Blood Venous blood specimen / Unknown Venipuncture / Unknown 11/13/2024 3:01 AM EDT 11/13/2024 3:05 AM EDT us Korey Rolle MD LAB BLOOD ORDERABLES Final Result Performing Organization Address [facility]/[place] [address] * Magnesium, Plasma (11/13/2024 3:01 AM EDT) Pathologist [facility] Magnesium, Plasma 2.0 1.9 - 2.4 mg/dL 11/13/2024 3:34 AM EDT [facility] Blood Venous blood specimen / Unknown Venipuncture / Unknown 11/13/2024 3:01 AM EDT 11/13/2024 3:05 AM EDT us Korey Rolle MD LAB BLOOD ORDERABLES Final Result Performing Organization Address [facility]/[place] [address] * (ABNORMAL) Ionized calcium, whole blood (11/13/2024 3:01 AM EDT) Pathologist [facility] Ionized Calcium, Whole Blood 4.3(L) 4.6 - 5.1 mg/dL LAB HEMATOLOGY METHOD 11/13/2024 3:09 AM EDT [facility] Blood Venous blood specimen / Unknown Venipuncture / Unknown 11/13/2024 3:01 AM EDT 11/13/2024 3:07 AM EDT us Korey Rolle MD LAB BLOOD ORDERABLES Final Result [facility] [address] [place] [address] * (ABNORMAL) Basic metabolic panel (11/13/2024 3:01 AM EDT) Glucose, Plasma 95 74 - 99 mg/dL 11/13/2024 3:34 AM EDT [facility] BUN, Plasma 14 7 - 21 mg/dL 11/13/2024 3:34 AM EDT [facility] Creatinine, Plasma 1.06 0.60 - 1.10 mg/dL 11/13/2024 3:34 AM EDT [facility] BUN/Creatinine Ratio 13 11/13/2024 3:34 AM EDT [facility] Sodium, Plasma 141 136 - 145 mmol/L 11/13/2024 3:34 AM EDT [facility] Potassium, Plasma 3.9 3.6 - 4.9 mmol/L 11/13/2024 3:34 AM EDT [facility] Chloride, Plasma 110(H) 97 - 107 mmol/L 11/13/2024 3:34 AM EDT [facility] CO2, Plasma 21(L) 22 - 29 mmol/L 11/13/2024 3:34 AM EDT [facility] Anion Gap 10 6 - 16 mmol/L 11/13/2024 3:34 AM EDT [facility] Total Calcium, Plasma 7.9(L) 8.9 - 10.2 mg/dL 11/13/2024 3:34 AM EDT [facility] eGFRcr 65.7 mL/min/1.7 3m*2 11/13/2024 3:34 AM EDT [facility] Comment:Reported eGFRcr in m L/min/1.73m2 is based the CKD-EPI 2020 equation that does not use a race coefficient. Blood Venous blood specimen / Unknown Venipuncture / Unknown 11/13/2024 3:01 AM EDT 11/13/2024 3:05 AM EDT Korey Rolle MD LAB BLOOD ORDERABLES Final Result [facility] [address] [place] [address] * (ABNORMAL) CBC (11/13/2024 3:01 AM EDT) WBC Count 9.57 3.70 - 10.30 10*3/uL LAB HEMATOLOGY METHOD 11/13/2024 3:16 AM EDT [facility] RBC Count 2.75(L) 3.90 - 5.20 10*6/uL LAB HEMATOLOGY METHOD 11/13/2024 3:16 AM EDT [facility] HGB 7.4(L) 11.2 - 15.7 g/dL LAB HEMATOLOGY METHOD 11/13/2024 3:16 AM EDT [facility] HCT 23.2(L) 34.0 - 45.0 % LAB HEMATOLOGY METHOD 11/13/2024 3:16 AM EDT [facility] Platelet Count 228 155 - 369 10*3/uL LAB HEMATOLOGY METHOD 11/13/2024 3:16 AM EDT [facility] MCV 84 79 - 98 fL LAB HEMATOLOGY METHOD 11/13/2024 3:16 AM EDT [facility] MCH 26.9 26.0 - 32.0 pg LAB HEMATOLOGY METHOD 11/13/2024 3:16 AM EDT [facility] MCHC 31.9 30.7 - 35.5 g/dL LAB HEMATOLOGY METHOD 11/13/2024 3:16 AM EDT [facility] RDW 16.6(H) 11.5 - 14.5 % LAB HEMATOLOGY METHOD 11/13/2024 3:16 AM EDT [facility] MPV 9.7 8.8 - 12.5 fL LAB HEMATOLOGY METHOD 11/13/2024 3:16 AM EDT [facility] nRBC 0.0 <=0.0 per 100 WBCs LAB HEMATOLOGY METHOD 11/13/2024 3:16 AM EDT [facility] Blood Venous blood specimen / Unknown Venipuncture / Unknown 11/13/2024 3:01 AM EDT 11/13/2024 3:05 AM EDT Korey Rolle MD LAB BLOOD ORDERABLES Final Result [facility] [address] [place] [address] * PERIPHERAL IV (SMARTFORM LINK) (11/13/2024 2:59 [...] - 4.5 mg/dL 11/12/2024 12:15 PM EDT [facility] Blood Venous blood specimen / Unknown Venipuncture / Unknown 11/12/2024 10:59 AM EDT 11/12/2024 11:12 AM EDT Korey Rolle MD LAB BLOOD ORDERABLES Final Result [facility] [address] [place] [address] * (ABNORMAL) Magnesium, Plasma (11/12/2024 10:59 AM EDT) Magnesium, Plasma 1.7(L) 1.9 - 2.4 mg/dL 11/12/2024 12:15 PM EDT [facility] Blood Venous blood specimen / Unknown Venipuncture / Unknown 11/12/2024 10:59 AM EDT 11/12/2024 11:12 AM EDT Koery Rolle MD LAB BLOOD ORDERABLES Final Result [facility] [address] [place] [address] * (ABNORMAL) Ionized calcium, whole blood (11/12/2024 10:59 AM EDT) Ionized Calcium, Whole Blood 4.5(L) 4.6 - 5.1 mg/dL LAB HEMATOLOGY METHOD 11/12/2024 11:08 AM EDT [facility] Blood Venous blood specimen / Unknown Venipuncture / Unknown 11/12/2024 10:59 AM EDT 11/12/2024 11:07 AM EDT Korey Rolle MD LAB BLOOD ORDERABLES Final Result Performing Organization Address City/[facility]/ZIP Co de Phone Number [facility] [address] [place] [address] * (ABNORMAL) Basic metabolic panel (11/12/2024 10:59 AM EDT) Pathologist [facility] Glucose, Plasma 89 74 - 99 mg/dL 11/12/2024 12:15 PM EDT [facility] BUN, Plasma 16 7 - 21 mg/dL 11/12/2024 12:15 PM EDT [facility] Creatinine, Plasma 1.15(H) 0.60 - 1.10 mg/dL 11/12/2024 12:15 PM EDT [facility] BUN/Creatinine Ratio 14 11/12/2024 12:15 PM EDT [facility] Sodium, Plasma 141 136 - 145 mmol/L 11/12/2024 12:15 PM EDT [facility] Potassium, Plasma 3.7 3.6 - 4.9 mmol/L 11/12/2024 12:15 PM EDT [facility] Chloride, Plasma 109(H) 97 - 107 mmol/L 11/12/2024 12:15 PM EDT [facility] CO2, Plasma 21(L) 22 - 29 mmol/L 11/12/2024 12:15 PM EDT [facility] Anion Gap 11 6 - 16 mmol/L 11/12/2024 12:15 PM EDT [facility] Total Calcium, Plasma 8.5(L) 8.9 - 10.2 mg/dL 11/12/2024 12:15 PM EDT [facility] eGFRcr 59.6 mL/min/1.7 3m*2 11/12/2024 12:15 PM EDT [facility] Comment:Reported eGFRcr in m L/min/1.73m2 is based the CKD-EPI 2020 equation that does not use a race coefficient. Blood Venous blood specimen / Unknown Venipuncture / Unknown 11/12/2024 10:59 AM EDT 11/12/2024 11:12 AM EDT Korey Rolle MD LAB BLOOD ORDERABLES Final Result [facility] [address] [place] [address] * (ABNORMAL) CBC (11/12/2024 10:59 AM EDT) WBC Count 10.21 3.70 - 10.30 10*3/uL LAB HEMATOLOGY METHOD 11/12/2024 11:32 AM EDT [facility] RBC Count 2.96(L) 3.90 - 5.20 10*6/uL LAB HEMATOLOGY METHOD 11/12/2024 11:32 AM EDT [facility] HGB 7.8(L) 11.2 - 15.7 g/dL LAB HEMATOLOGY METHOD 11/12/2024 11:32 AM EDT [facility] HCT 25.1(L) 34.0 - 45.0 % LAB HEMATOLOGY METHOD 11/12/2024 11:32 AM EDT [facility] Platelet Count 266 155 - 369 10*3/uL LAB HEMATOLOGY METHOD 11/12/2024 11:32 AM EDT [facility] MCV 85 79 - 98 fL LAB HEMATOLOGY METHOD 11/12/2024 11:32 AM EDT [facility] MCH 26.4 26.0 - 32.0 pg LAB HEMATOLOGY METHOD 11/12/2024 11:32 AM EDT [facility] MCHC 31.1 30.7 - 35.5 g/dL LAB HEMATOLOGY METHOD 11/12/2024 11:32 AM EDT [facility] RDW 16.4(H) 11.5 - 14.5 % LAB HEMATOLOGY METHOD 11/12/2024 11:32 AM EDT [facility] MPV 9.8 8.8 - 12.5 fL LAB HEMATOLOGY METHOD 11/12/2024 11:32 AM EDT [facility] nRBC 0.0 <=0.0 per 100 WBCs LAB HEMATOLOGY METHOD 11/12/2024 11:32 AM EDT [facility] Blood Venous blood specimen / Unknown Venipuncture / Unknown 11/12/2024 10:59 AM EDT 11/12/2024 11:25 AM EDT Korey Rolle MD LAB BLOOD ORDERABLES Final Result [facility] [address] [place] [address] * Comprehensive GI Panel by PCR (11/11/2024 8:01 PM EDT) Campylobacter PCR Result Not Detected Not Detected 11/12/2024 5:52 AM EDT [facility] Plesiomonas shigelloides PCR Result Not Detected Not Detected 11/12/2024 5:52 AM EDT [facility] Salmonella PCR Result Not Detected Not Detected 11/12/2024 5:52 AM EDT [facility] Vibrio species PCR Result Not Detected Not Detected 11/12/2024 5:52 AM EDT [facility] Vibrio cholerae PCR Result Not Detected Not Detected 11/12/2024 5:52 AM EDT [facility] Yersinia enterocolitica PCR Result Not Detected Not Detected 11/12/2024 5:52 AM EDT [facility] Enteroaggregative E. coli (EAEC) PCR Result Not Detected Not Detected 11/12/2024 5:52 AM EDT [facility] Enteropathogenic E. coli (EPEC) PCR Result Not Detected Not Detected 11/12/2024 5:52 AM EDT [facility] Enterotoxigenic E. coli (ETEC) lt/st PCR Result Not Detected Not Detected 11/12/2024 5:52 AM EDT [facility] Shiga-like Toxin-Producing E.coli (STEC) stx1/stx2 PCR Resu Not Detected Not Detected 11/12/2024 5:52 AM EDT [facility] E coli 0157 PCR Result Not Detected Not Detected 11/12/2024 5:52 AM EDT [facility] Shigella/Enteroinvas christal E. coli (EIEC) PCR Result Not Detected Not Detected 11/12/2024 5:52 AM EDT [facility] Cryptosporidium PCR Result Not Detected Not Detected 11/12/2024 5:52 AM EDT [facility] Cyclospora cayetanensis PCR Result Not Detected Not Detected 11/12/2024 5:52 AM EDT [facility] Entamoeba histolytica PCR Result Not Detected Not Detected 11/12/2024 5:52 AM EDT [facility] Giardia duodenalis (aka Giardia lamblia) PCR Result Not Detected Not Detected 11/12/2024 5:52 AM EDT [facility] Adenovirus F 40/41 PCR Result Not Detected Not Detected 11/12/2024 5:52 AM EDT [facility] Astrovirus PCR Result Not Detected Not Detected 11/12/2024 5:52 AM EDT [facility] Norovirus GI/GII PCR Result Not Detected Not Detected 11/12/2024 5:52 AM EDT [facility] Rotavirus A PCR Result Not Detected Not Detected 11/12/2024 5:52 AM EDT [facility] Sapovirus PCR Result Not Detected Not Detected 11/12/2024 5:52 AM EDT [facility] Stool Rectum structure / Unknown Non-blood Collection / Unknown 11/11/2024 8:01 PM EDT 11/11/2024 8:13 PM EDT [facility] - 11/12/2024 5:52 AM EDT [...] Final Result Performing Organization Address [facility] [place] [address] * Clostridiodes (Clostridium) difficile PCR (11/11/2024 8:01 PM EDT) C difficile PCR toxin B gene DNA Result Not Detected Not Detected 11/11/2024 9:22 PM EDT [facility] Stool Rectum structure / Unknown Non-blood Collection / Unknown 11/11/2024 8:01 PM EDT 11/11/2024 8:13 PM EDT Narrative [facility] - 11/11/2024 9:22 PM EDT [...] GENERAL ORDERABLES Final Result Performing Organization Address [facility] [place] [address] * CT Chest wo IV Contrast (11/11/2024 [...] Jan Alfonso MD on 11/11/2024 10:17 AM us Jennifer Capps [employer]INEER[employer]IST IMG CT PROCEDURES Final R esult * Sodium, urine, random (11/11/2024 3:34 AM EDT) Sodium, Urine 76 mmol/L 11/11/2024 4:13 AM EDT [facility] Urine Urine specimen obtained by clean catch procedure / Unknown Non-blood Collection / Unknown 11/11/2024 3:34 AM EDT 11/11/2024 3:43 AM EDT Morelia Galvez MD LAB URINE ORDERABLES Final Result Performing Organization Address City/[facility]/ZIP Co de Phone Number [facility] [address] [place] [address] * Creatinine, urine, random (11/11/2024 3:34 AM EDT) Creatinine, Urine 105 mg/dL 11/11/2024 4:13 AM EDT [facility] Urine Urine specimen obtained by clean catch procedure / Unknown Non-blood Collection / Unknown 11/11/2024 3:34 AM EDT 11/11/2024 3:43 AM EDT Morelia Galvez MD LAB URINE ORDERABLES Final Result Performing Organization Address City/[facility]/ZIP Co de Phone Number [facility] [address] [place] [address] * (ABNORMAL) Comprehensive Metabolic Panel, Plasma (11/11/2024 3:32 AM EDT) [facility] Glucose, Plasma 98 74 - 99 mg/dL 11/11/2024 4:27 AM EDT [facility] BUN, Plasma 18 7 - 21 mg/dL 11/11/2024 4:27 AM EDT [facility] Creatinine, Plasma 1.46(H) 0.60 - 1.10 mg/dL 11/11/2024 4:27 AM EDT [facility] BUN/Creatinine Ratio 12 11/11/2024 4:27 AM EDT [facility] Sodium, Plasma 142 136 - 145 mmol/L 11/11/2024 4:27 AM EDT [facility] Potassium, Plasma 4.1 3.6 - 4.9 mmol/L 11/11/2024 4:27 AM EDT [facility] Chloride, Plasma 111(H) 97 - 107 mmol/L 11/11/2024 4:27 AM EDT [facility] CO2, Plasma 19(L) 22 - 29 mmol/L 11/11/2024 4:27 AM EDT [facility] Anion Gap 12 6 - 16 mmol/L 11/11/2024 4:27 AM EDT [facility] Total Calcium, Plasma 8.3(L) 8.9 - 10.2 mg/dL 11/11/2024 4:27 AM EDT [facility] Total Protein 6.0(L) 6.3 - 7.9 g/dL 11/11/2024 4:27 AM EDT [facility] Albumin, Plasma 2.5(L) 3.5 - 5.2 g/dL 11/11/2024 4:27 AM EDT [facility] AST, Plasma 61(H) 10 - 35 U/L 11/11/2024 4:27 AM EDT [facility] ALT, Plasma 29 10 - 35 U/L 11/11/2024 4:27 AM EDT [facility] Alkaline Phosphatase, Plasma 238(H) 35 - 104 U/L 11/11/2024 4:27 AM EDT [facility] Total Bilirubin, Plasma 0.5 0.2 - 1.1 mg/dL 11/11/2024 4:27 AM EDT [facility] eGFRcr 44.8 mL/min/1.7 3m*2 11/11/2024 4:27 AM EDT [facility] Comment:Reported eGFRcr in m L/min/1.73m2 is based the CKD-EPI 2020 equation that does not use a race coefficient. Blood Venous blood specimen / Unknown Venipuncture / Unknown 11/11/2024 3:32 AM EDT 11/11/2024 3:45 AM EDT us Jennifer Capps [employer] ENGINEER[employer] SPECIALIST LAB BLOOD ORDERABLES Sonali l Result [facility] [address] [place] [address] * (ABNORMAL) CBC W/O Differential (11/11/2024 3:32 AM EDT) WBC Count 11.86(H) 3.70 - 10.30 10*3/uL LAB HEMATOLOGY METHOD 11/11/2024 3:53 AM EDT [facility] RBC Count 2.86(L) 3.90 - 5.20 10*6/uL LAB HEMATOLOGY METHOD 11/11/2024 3:53 AM EDT [facility] HGB 7.5(L) 11.2 - 15.7 g/dL LAB HEMATOLOGY METHOD 11/11/2024 3:53 AM EDT [facility] HCT 24.0(L) 34.0 - 45.0 % LAB HEMATOLOGY METHOD 11/11/2024 3:53 AM EDT [facility] Platelet Count 248 155 - 369 10*3/uL LAB HEMATOLOGY METHOD 11/11/2024 3:53 AM EDT [facility] MCV 84 79 - 98 fL LAB HEMATOLOGY METHOD 11/11/2024 3:53 AM EDT [facility] MCH 26.2 26.0 - 32.0 pg LAB HEMATOLOGY METHOD 11/11/2024 3:53 AM EDT [facility] MCHC 31.3 30.7 - 35.5 g/dL LAB HEMATOLOGY METHOD 11/11/2024 3:53 AM EDT [facility] RDW 16.4(H) 11.5 - 14.5 % LAB HEMATOLOGY METHOD 11/11/2024 3:53 AM EDT [facility] MPV 9.7 8.8 - 12.5 fL LAB HEMATOLOGY METHOD 11/11/2024 3:53 AM EDT [facility] nRBC 0.0 <=0.0 per 100 WBCs LAB HEMATOLOGY METHOD 11/11/2024 3:53 AM EDT [facility] Blood Venous blood specimen / Unknown Venipuncture / Unknown 11/11/2024 3:32 AM EDT 11/11/2024 3:45 AM EDT us Jennifer E Jefry [employer] ENGINEERING SPECIALIST LAB BLOOD ORDERABLES Sonali l Result Performing Organization Address City/[facility] Co de Phone Number [facility] [address] [place] [address] * (ABNORMAL) Magnesium, Plasma (11/11/2024 3:32 AM EDT) Magnesium, Plasma 1.8(L) 1.9 - 2.4 mg/dL 11/11/2024 4:27 AM EDT [facility] Blood Venous blood specimen / Unknown Venipuncture / Unknown 11/11/2024 3:32 AM EDT 11/11/2024 3:45 AM EDT us Jennifer E Jefry [employer] LAB BLOOD ORDERABLES Sonali l Result Performing Organization Address [facility] Co de Phone Number [facility] [address] [place] [address] * Phosphorus, Plasma (11/11/2024 3:32 AM EDT) Phosphorus, Plasma 3.0 2.5 - 4.5 mg/dL 11/11/2024 4:27 AM EDT [facility] Blood Venous blood specimen / Unknown Venipuncture / Unknown 11/11/2024 3:32 AM EDT 11/11/2024 3:45 AM EDT us Jennifer E Jefry [employer] LAB BLOOD ORDERABLES Sonali l Result Performing Organization Address [facility]/ZIP Co de Phone Number [facility] [address] [place] [address] * (ABNORMAL) Comprehensive metabolic panel (11/10/2024 10:30 AM EDT) Glucose, Plasma 96 74 - 99 mg/dL 11/10/2024 11:48 AM EDT [facility] BUN, Plasma 20 7 - 21 mg/dL 11/10/2024 11:48 AM EDT [facility] Creatinine, Plasma 1.53(H) 0.60 - 1.10 mg/dL 11/10/2024 11:48 AM EDT [facility] BUN/Creatinine Ratio 13 11/10/2024 11:48 AM EDT [facility] Sodium, Plasma 138 136 - 145 mmol/L 11/10/2024 11:48 AM EDT [facility] Potassium, Plasma 3.6 3.6 - 4.9 mmol/L 11/10/2024 11:48 AM EDT [facility] Chloride, Plasma 107 97 - 107 mmol/L 11/10/2024 11:48 AM EDT [facility] CO2, Plasma 16(L) 22 - 29 mmol/L 11/10/2024 11:48 AM EDT [facility] Anion Gap 15 6 - 16 mmol/L 11/10/2024 11:48 AM EDT [facility] Total Calcium, Plasma 8.4(L) 8.9 - 10.2 mg/dL 11/10/2024 11:48 AM EDT [facility] Total Protein 6.0(L) 6.3 - 7.9 g/dL 11/10/2024 11:48 AM EDT [facility] Albumin, Plasma 2.5(L) 3.5 - 5.2 g/dL 11/10/2024 11:48 AM EDT [facility] AST, Plasma 57(H) 10 - 35 U/L 11/10/2024 11:48 AM EDT [facility] Comment:Hemolyzed, result ma y be falsely increased. ALT, Plasma 23 10 - 35 U/L 11/10/2024 11:48 AM EDT [facility] Alkaline Phosphatase, Plasma 224(H) 35 - 104 U/L 11/10/2024 11:48 AM EDT [facility] Total Bilirubin, Plasma 0.6 0.2 - 1.1 mg/dL 11/10/2024 11:48 AM EDT [facility] eGFRcr 42.3 mL/min/1.7 3m*2 11/10/2024 11:48 AM EDT [facility] Comment:Reported eGFRcr in m L/min/1.73m2 is based the CKD-EPI 2020 equation that does not use a race coefficient. Blood Venous blood specimen / Unknown Venipuncture / Unknown 11/10/2024 10:30 AM EDT 11/10/2024 10:34 AM EDT Morelia Galvez MD LAB BLOOD ORDERABLES Final Result [facility] [address] [place] [address] * (ABNORMAL) Basic Metabolic Panel, Plasma (11/10/2024 5:49 AM EDT) Glucose, Plasma 105(H) 74 - 99 mg/dL 11/10/2024 6:36 AM EDT [facility] BUN, Plasma 20 7 - 21 mg/dL 11/10/2024 6:36 AM EDT [facility] Creatinine, Plasma 1.76(H) 0.60 - 1.10 mg/dL 11/10/2024 6:36 AM EDT [facility] BUN/Creatinine Ratio 11 11/10/2024 6:36 AM EDT [facility] Sodium, Plasma 138 136 - 145 mmol/L 11/10/2024 6:36 AM EDT [facility] Potassium, Plasma 3.3(L) 3.6 - 4.9 mmol/L 11/10/2024 6:36 AM EDT [facility] Chloride, Plasma 107 97 - 107 mmol/L 11/10/2024 6:36 AM EDT [facility] CO2, Plasma 19(L) 22 - 29 mmol/L 11/10/2024 6:36 AM EDT [facility] Anion Gap 12 6 - 16 mmol/L 11/10/2024 6:36 AM EDT [facility] Total Calcium, Plasma 8.0(L) 8.9 - 10.2 mg/dL 11/10/2024 6:36 AM EDT [facility] eGFRcr 35.8 mL/min/1.7 3m*2 11/10/2024 6:36 AM EDT [facility] Comment:Reported eGFRcr in m L/min/1.73m2 is based the CKD-EPI 2020 equation that does not use a race coefficient. Blood Venous blood specimen / Unknown Venipuncture / Unknown 11/10/2024 5:49 AM EDT 11/10/2024 6:07 AM EDT us Morelia Galvez MD LAB BLOOD ORDERABLES Final Result [facility] [address] [place] [address] * (ABNORMAL) CBC and Differential (11/10/2024 5:49 AM EDT) WBC Count 12.70(H) 3.70 - 10.30 10*3/uL LAB HEMATOLOGY METHOD 11/10/2024 6:14 AM EDT [facility] RBC Count 2.83(L) 3.90 - 5.20 10*6/uL LAB HEMATOLOGY METHOD 11/10/2024 6:14 AM EDT [facility] HGB 7.5(L) 11.2 - 15.7 g/dL LAB HEMATOLOGY METHOD 11/10/2024 6:14 AM EDT [facility] HCT 23.4(L) 34.0 - 45.0 % LAB HEMATOLOGY METHOD 11/10/2024 6:14 AM EDT [facility] Platelet Count 260 155 - 369 10*3/uL LAB HEMATOLOGY METHOD 11/10/2024 6:14 AM EDT [facility] MCV 83 79 - 98 fL LAB HEMATOLOGY METHOD 11/10/2024 6:14 AM EDT [facility] MCH 26.5 26.0 - 32.0 pg LAB HEMATOLOGY METHOD 11/10/2024 6:14 AM EDT [facility] MCHC 32.1 30.7 - 35.5 g/dL LAB HEMATOLOGY METHOD 11/10/2024 6:14 AM EDT [facility] RDW 16.3(H) 11.5 - 14.5 % LAB HEMATOLOGY METHOD 11/10/2024 6:14 AM EDT [facility] MPV 9.6 8.8 - 12.5 fL LAB HEMATOLOGY METHOD 11/10/2024 6:14 AM EDT [facility] nRBC 0.0 <=0.0 per 100 WBCs LAB HEMATOLOGY METHOD 11/10/2024 6:14 AM EDT [facility] Differential Type Automated LAB HEMATOLOGY METHOD 11/10/2024 6:14 AM EDT [facility] Neutrophils % 78 % LAB HEMATOLOGY METHOD 11/10/2024 6:14 AM EDT [facility] Lymphocytes % 12 % LAB HEMATOLOGY METHOD 11/10/2024 6:14 AM EDT [facility] Monocytes % 7 % LAB HEMATOLOGY METHOD 11/10/2024 6:14 AM EDT [facility] Eosinophils % 2 % LAB HEMATOLOGY METHOD 11/10/2024 6:14 AM EDT [facility] Basophils % 0 % LAB HEMATOLOGY METHOD 11/10/2024 6:14 AM EDT [facility] Immature Granulocytes % 1 % LAB HEMATOLOGY METHOD 11/10/2024 6:14 AM EDT [facility] Neutrophils Absolute 9.84(H) 1.60 - 6.10 10*3/uL LAB HEMATOLOGY METHOD 11/10/2024 6:14 AM EDT [facility] Lymphocytes Absolute 1.49 1.20 - 3.90 10*3/uL LAB HEMATOLOGY METHOD 11/10/2024 6:14 AM EDT [facility] Monocytes Absolute 0.93(H) 0.30 - 0.90 10*3/uL LAB HEMATOLOGY METHOD 11/10/2024 6:14 AM EDT [facility] Eosinophils Absolute 0.23 0.00 - 0.50 10*3/uL LAB HEMATOLOGY METHOD 11/10/2024 6:14 AM EDT [facility] Basophils Absolute 0.05 0.00 - 0.10 10*3/uL LAB HEMATOLOGY METHOD 11/10/2024 6:14 AM EDT [facility] Immature Granulocytes Absolute 0.16(H) 0.00 - 0.06 10*3/uL LAB HEMATOLOGY METHOD 11/10/2024 6:14 AM EDT [facility] Blood Venous blood specimen / Unknown Venipuncture / Unknown 11/10/2024 5:49 AM EDT 11/10/2024 6:06 AM EDT Narrative [facility] - 11/10/2024 6:14 AM EDT Therapeutic decision making should be based on absolute values, rather than percentages. us Morelia Galvez MD LAB BLOOD ORDERABLES Final Result [facility] [address] [place] [address] * Magnesium, Plasma (11/10/2024 5:49 AM EDT) Magnesium, Plasma 2.1 1.9 - 2.4 mg/dL 11/10/2024 6:36 AM EDT [facility] Blood Venous blood specimen / Unknown Venipuncture / Unknown 11/10/2024 5:49 AM EDT 11/10/2024 6:07 AM EDT Morelia Galvez MD LAB BLOOD ORDERABLES Final Result Performing Organization Address City/[facility]/[place] [address] * Phosphorus, Plasma (11/10/2024 5:49 AM EDT) Phosphorus, Plasma 3.1 2.5 - 4.5 mg/dL 11/10/2024 6:36 AM EDT [facility] Blood Venous blood specimen / Unknown Venipuncture / Unknown 11/10/2024 5:49 AM EDT 11/10/2024 6:07 AM EDT Result [facility] Morelia Galvez MD LAB BLOOD ORDERABLES Final Result Performing Organization Address City/[facility]/ZIP Co de Phone Number [facility] [address] [place] [address] * PERIPHERAL IV (SMART[employer] LINK) (11/09/2024 5:08 [...] Morelia Galvez MD IV THERAPY ORDERABLES Sonali barahona Result * CT Abdomen Pelvis w IV [...] (series 3, image 74 and series 5, [id number]) , previously measured 9.0 x 6.1 x [...] Comment 11/09/2024 7:13 AM EDT [facility] Access Manager ID Justine Singh 11/09/2024 7:13 AM EDT [facility] Device ID [id number] 11/09/2024 7:13 AM EDT [facility] Specimen Type POC Capillary 11/09/2024 7:13 AM EDT [facility] Blood Capillary blood specimen / Unknown 11/09/2024 7:12 AM EDT 11/09/2024 7:13 AM EDT Morelia Galvez MD LAB POINT OF CARE TEST DOCKED DEVICE UNSOLICITED RESULTS Final Result Performing Organization Address City/[facility] Co de Phone Number [facility] [address] [place] [address] * (ABNORMAL) Magnesium (11/09/2024 2:04 AM EDT) Magnesium, Plasma 1.7(L) 1.9 - 2.4 mg/dL 11/09/2024 3:13 AM EDT [facility] Blood Venous blood specimen / Unknown Venipuncture / Unknown 11/09/2024 2:04 AM EDT 11/09/2024 2:44 AM EDT Rui Leonard DO LAB BLOOD ORDERABLES Final Res ult [facility] [address] [place] [address] * Phosphorus (11/09/2024 2:04 AM EDT) Phosphorus, Plasma 3.9 2.5 - 4.5 mg/dL 11/09/2024 3:13 AM EDT [facility] Blood Venous blood specimen / Unknown Venipuncture / Unknown 11/09/2024 2:04 AM EDT 11/09/2024 2:44 AM EDT Rui Leonard DO LAB BLOOD ORDERABLES Final Res ult [facility] [address] [place] [address] * (ABNORMAL) Basic Metabolic Panel (11/09/2024 2:04 AM EDT) Glucose, Plasma 96 74 - 99 mg/dL 11/09/2024 3:13 AM EDT [facility] BUN, Plasma 21 7 - 21 mg/dL 11/09/2024 3:13 AM EDT [facility] Creatinine, Plasma 1.81(H) 0.60 - 1.10 mg/dL 11/09/2024 3:13 AM EDT [facility] BUN/Creatinine Ratio 12 11/09/2024 3:13 AM EDT [facility] Sodium, Plasma 139 136 - 145 mmol/L 11/09/2024 3:13 AM EDT [facility] Potassium, Plasma 3.0(L) 3.6 - 4.9 mmol/L 11/09/2024 3:13 AM EDT [facility] Chloride, Plasma 104 97 - 107 mmol/L 11/09/2024 3:13 AM EDT [facility] CO2, Plasma 19(L) 22 - 29 mmol/L 11/09/2024 3:13 AM EDT [facility] Anion Gap 16 6 - 16 mmol/L 11/09/2024 3:13 AM EDT [facility] Total Calcium, Plasma 8.3(L) 8.9 - 10.2 mg/dL 11/09/2024 3:13 AM EDT [facility] eGFRcr 34.6 mL/min/1.7 3m*2 11/09/2024 3:13 AM EDT [facility] Comment:Reported eGFRcr in m L/min/1.73m2 is based the CKD-EPI 2020 equation that does not use a race coefficient. Blood Venous blood specimen / Unknown Venipuncture / Unknown 11/09/2024 2:04 AM EDT 11/09/2024 2:44 AM EDT Rui Leonard DO LAB BLOOD ORDERABLES Final Res ult [facility] [address] [place] [address] * (ABNORMAL) CBC (11/09/2024 2:04 AM EDT) WBC Count 12.51(H) 3.70 - 10.30 10*3/uL LAB HEMATOLOGY METHOD 11/09/2024 2:53 AM EDT [facility] RBC Count 2.74(L) 3.90 - 5.20 10*6/uL LAB HEMATOLOGY METHOD 11/09/2024 2:53 AM EDT [facility] HGB 7.4(L) 11.2 - 15.7 g/dL LAB HEMATOLOGY METHOD 11/09/2024 2:53 AM EDT [facility] HCT 22.8(L) 34.0 - 45.0 % LAB HEMATOLOGY METHOD 11/09/2024 2:53 AM EDT [facility] Platelet Count 261 155 - 369 10*3/uL LAB HEMATOLOGY METHOD 11/09/2024 2:53 AM EDT [facility] MCV 83 79 - 98 fL LAB HEMATOLOGY METHOD 11/09/2024 2:53 AM EDT [facility] MCH 27.0 26.0 - 32.0 pg LAB HEMATOLOGY METHOD 11/09/2024 2:53 AM EDT [facility] MCHC 32.5 30.7 - 35.5 g/dL LAB HEMATOLOGY METHOD 11/09/2024 2:53 AM EDT [facility] RDW 16.2(H) 11.5 - 14.5 % LAB HEMATOLOGY METHOD 11/09/2024 2:53 AM EDT [facility] MPV 9.8 8.8 - 12.5 fL LAB HEMATOLOGY METHOD 11/09/2024 2:53 AM EDT [facility] nRBC 0.0 <=0.0 per 100 WBCs LAB HEMATOLOGY METHOD 11/09/2024 2:53 AM EDT [facility] Blood Venous blood specimen / Unknown Venipuncture / Unknown 11/09/2024 2:04 AM EDT 11/09/2024 2:44 AM EDT us Rui Leonard DO LAB BLOOD ORDERABLES Final Res ult Performing Organization Address [facility]/ZIP Co de Phone Number [facility] [address] [place] [address] * (ABNORMAL) Troponin T, High Sensitivity, 2 Hour, Plasma (11/08/2024 3:17 PM EDT) Troponin T, High Sensitivity, 2 Hour 17(H) <14 ng/L 11/08/2024 3:51 PM EDT [facility] Troponin Delta 3 <10 ng/L 11/08/2024 3:51 PM EDT [facility] Troponin Delta Interpretation Not Significant 11/08/2024 3:51 PM EDT [facility] Comment:Not Significant. No acute change in troponin observed between the baseline and 2 hour samples. Blood Venous blood specimen / Unknown Venipuncture / Unknown 11/08/2024 3:17 PM EDT 11/08/2024 3:24 PM EDT Long Rios MD LAB BLOOD ORDERABLES Final R esult Performing Organization Address City/[facility]/ZIP Co de Phone Number [facility] [address] [place] [address] * Heparin level (11/08/2024 1:57 PM EDT) Anti Xa Level Unfractionated Heparin <0.11 <1.00 IU/mL LAB COAGULATION METHOD 11/08/2024 2:26 PM EDT [facility] Blood Venous blood specimen / Unknown Venipuncture / Unknown 11/08/2024 1:57 PM EDT 11/08/2024 2:07 PM EDT Narrative [facility] - 11/08/2024 2:26 PM EDT Therapeutic Range: UFH Full Dose and ACS/AL protocols*: 0.30 - 0.70 IU/mL UFH Low Dose protocol*: 0.25 - 0.50 IU/mL UFH prophylaxis: Not established us Long Rios MD LAB BLOOD ORDERABLES Final R esult [facility] [address] [place] [address] * US Abdomen Focused Region GB, Bile [...] HIV 1/2 Differentiation (11/08/2024 1:12 PM EDT) HIV 1 & 2 Antibody/Antigen Screen Non Reactive Non Reactive 11/08/2024 2:06 PM EDT [facility] Comment:Screening for HIV 1 & 2 antibodies, and P24 antigen is NONREACTIVE. No confirmatory testing is required. Blood Venous blood specimen / Unknown Venipuncture / Unknown 11/08/2024 1:12 PM EDT 11/08/2024 1:24 PM EDT us Long Rios MD LAB BLOOD ORDERABLES Final R esult [facility] [address] [place] [address] * (ABNORMAL) PT-INR (11/08/2024 1:12 PM EDT) Prothrombin Time 16.3(H) 12.0 - 14.3 sec LAB COAGULATION METHOD 11/08/2024 1:48 PM EDT [facility] INR 1.3(H) 0.9 - 1.1 LAB COAGULATION METHOD 11/08/2024 1:48 PM EDT [facility] Blood Venous blood specimen / Unknown Venipuncture / Unknown 11/08/2024 1:12 PM EDT 11/08/2024 1:25 PM EDT Narrative [facility] - 11/08/2024 1:48 PM EDT OPTIMAL INR RANGES FOR PATIENT ON ORAL ANTICOAGULANT THERAPY Prevention of venous thromboembolism INR 2.0 to 3.0 In patients with heart disease: Atrial fibrillation INR 2.0 to 3.0 Valvular heart disease INR 2.0 to 3.0 Tissue heart valves INR 2.0 to 3.0 Mechanical prosthetic valves INR 2.5 to 3.5 Prevention of recurrent AL INR 2.5 to 3.5 us Long Rios MD LAB BLOOD ORDERABLES Final R esult [facility] [address] [place] [address] * (ABNORMAL) CBC w/diff (11/08/2024 1:12 PM EDT) WBC Count 13.33(H) 3.70 - 10.30 10*3/uL LAB HEMATOLOGY METHOD 11/08/2024 1:33 PM EDT [facility] RBC Count 3.41(L) 3.90 - 5.20 10*6/uL LAB HEMATOLOGY METHOD 11/08/2024 1:33 PM EDT [facility] HGB 9.1(L) 11.2 - 15.7 g/dL LAB HEMATOLOGY METHOD 11/08/2024 1:33 PM EDT [facility] HCT 27.9(L) 34.0 - 45.0 % LAB HEMATOLOGY METHOD 11/08/2024 1:33 PM EDT [facility] Platelet Count 301 155 - 369 10*3/uL LAB HEMATOLOGY METHOD 11/08/2024 1:33 PM EDT [facility] MCV 82 79 - 98 fL LAB HEMATOLOGY METHOD 11/08/2024 1:33 PM EDT [facility] MCH 26.7 26.0 - 32.0 pg LAB HEMATOLOGY METHOD 11/08/2024 1:33 PM EDT [facility] MCHC 32.6 30.7 - 35.5 g/dL LAB HEMATOLOGY METHOD 11/08/2024 1:33 PM EDT [facility] RDW 15.9(H) 11.5 - 14.5 % LAB HEMATOLOGY METHOD 11/08/2024 1:33 PM EDT [facility] MPV 9.7 8.8 - 12.5 fL LAB HEMATOLOGY METHOD 11/08/2024 1:33 PM EDT [facility] nRBC 0.0 <=0.0 per 100 WBCs LAB HEMATOLOGY METHOD 11/08/2024 1:33 PM EDT [facility] Differential Type Automated LAB HEMATOLOGY METHOD 11/08/2024 1:33 PM EDT [facility] Neutrophils % 84 % LAB HEMATOLOGY METHOD 11/08/2024 1:33 PM EDT [facility] Lymphocytes % 7 % LAB HEMATOLOGY METHOD 11/08/2024 1:33 PM EDT [facility] Monocytes % 7 % LAB HEMATOLOGY METHOD 11/08/2024 1:33 PM EDT [facility] Eosinophils % 1 % LAB HEMATOLOGY METHOD 11/08/2024 1:33 PM EDT [facility] Basophils % 0 % LAB HEMATOLOGY METHOD 11/08/2024 1:33 PM EDT [facility] Immature Granulocytes % 1 % LAB HEMATOLOGY METHOD 11/08/2024 1:33 PM EDT [facility] Neutrophils Absolute 11.14(H) 1.60 - 6.10 10*3/uL LAB HEMATOLOGY METHOD 11/08/2024 1:33 PM EDT [facility] Lymphocytes Absolute 0.97(L) 1.20 - 3.90 10*3/uL LAB HEMATOLOGY METHOD 11/08/2024 1:33 PM EDT [facility] Monocytes Absolute 0.92(H) 0.30 - 0.90 10*3/uL LAB HEMATOLOGY METHOD 11/08/2024 1:33 PM EDT [facility] Eosinophils Absolute 0.11 0.00 - 0.50 10*3/uL LAB HEMATOLOGY METHOD 11/08/2024 1:33 PM EDT [facility] Basophils Absolute 0.05 0.00 - 0.10 10*3/uL LAB HEMATOLOGY METHOD 11/08/2024 1:33 PM EDT [facility] Immature Granulocytes Absolute 0.14(H) 0.00 - 0.06 10*3/uL LAB HEMATOLOGY METHOD 11/08/2024 1:33 PM EDT [facility] Blood Venous blood specimen / Unknown Venipuncture / Unknown 11/08/2024 1:12 PM EDT 11/08/2024 1:25 PM EDT [facility] - 11/08/2024 1:33 PM EDT Therapeutic decision making should be based on absolute values, rather than percentages. us Long Rios MD LAB BLOOD ORDERABLES Final R esult Performing Organization Address [facility]/ZIP Co de Phone Number [facility] [address] [place] [address] * (ABNORMAL) BNP (11/08/2024 1:12 PM EDT) N-Terminal, PROBNP, Plasma 523(H) 0 - 449 pg/mL 11/08/2024 1:55 PM EDT [facility] Blood Venous blood specimen / Unknown Venipuncture / Unknown 11/08/2024 1:12 PM EDT 11/08/2024 1:25 PM EDT us Long Rios MD LAB BLOOD ORDERABLES Final R esult Performing Organization Address [facility] Co de Phone Number [facility] [address] [place] [address] * (ABNORMAL) Troponin now and 120 min (11/08/2024 1:12 PM EDT) Troponin T, High Sensitivity, 0 Hour 14(H) <14 ng/L 11/08/2024 1:55 PM EDT [facility] Blood Venous blood specimen / Unknown Venipuncture / Unknown 11/08/2024 1:12 PM EDT 11/08/2024 1:25 PM EDT us Long Rios MD LAB BLOOD ORDERABLES Final R esult Performing Organization Address [facility]/ZIP Co de Phone Number [facility] [address] [place] [address] * (ABNORMAL) CMP (11/08/2024 1:12 PM EDT) Glucose, Plasma 106(H) 74 - 99 mg/dL 11/08/2024 1:55 PM EDT [facility] BUN, Plasma 20 7 - 21 mg/dL 11/08/2024 1:55 PM EDT [facility] Creatinine, Plasma 1.64(H) 0.60 - 1.10 mg/dL 11/08/2024 1:55 PM EDT [facility] BUN/Creatinine Ratio 12 11/08/2024 1:55 PM EDT [facility] Sodium, Plasma 140 136 - 145 mmol/L 11/08/2024 1:55 PM EDT [facility] Potassium, Plasma 3.2(L) 3.6 - 4.9 mmol/L 11/08/2024 1:55 PM EDT [facility] Comment:Hemolyzed, result ma y be falsely increased. Chloride, Plasma 108(H) 97 - 107 mmol/L 11/08/2024 1:55 PM EDT [facility] CO2, Plasma 18(L) 22 - 29 mmol/L 11/08/2024 1:55 PM EDT [facility] Anion Gap 14 6 - 16 mmol/L 11/08/2024 1:55 PM EDT [facility] Total Calcium, Plasma 7.6(L) 8.9 - 10.2 mg/dL 11/08/2024 1:55 PM EDT [facility] Total Protein 6.2(L) 6.3 - 7.9 g/dL 11/08/2024 1:55 PM EDT [facility] Albumin, Plasma 2.6(L) 3.5 - 5.2 g/dL 11/08/2024 1:55 PM EDT [facility] AST, Plasma 62(H) 10 - 35 U/L 11/08/2024 1:55 PM EDT [facility] Comment:Hemolyzed, result ma y be falsely increased. ALT, Plasma 22 10 - 35 U/L 11/08/2024 1:55 PM EDT [facility] Alkaline Phosphatase, Plasma 231(H) 35 - 104 U/L 11/08/2024 1:55 PM EDT [facility] Total Bilirubin, Plasma 1.0 0.2 - 1.1 mg/dL 11/08/2024 1:55 PM EDT [facility] eGFRcr 38.9 mL/min/1.7 3m*2 11/08/2024 1:55 PM EDT [facility] Comment:Reported eGFRcr in m L/min/1.73m2 is based the CKD-EPI 2020 equation that does not use a race coefficient. Blood Venous blood specimen / Unknown Venipuncture / Unknown 11/08/2024 1:12 PM EDT 11/08/2024 1:25 PM EDT us Long Rios MD LAB BLOOD ORDERABLES Final R esult [facility] [address] [place] [address] * EKG now - STAT (adult) (11/08/2024 11:25 AM EDT) EKG DIAGNOSIS CLASS Borderline Abnormal MUSE ECG Ventricular Rate 94 BPM MUSE ECG Atrial Rate 94 BPM MUSE ECG TX Interval 128 ms MUSE ECG QRSD Interval 100 ms MUSE ECG QT Interval 364 ms MUSE ECG QTC Interval 455 ms MUSE ECG P [place] 65 degrees MUSE ECG R [place] 11 degrees MUSE ECG T Wave [place] 8 degrees MUSE ECG Diagnosis Normal sinus rhythm MUSE ECG Diagnosis RSR' V1, is likely a normal variant MUSE ECG Diagnosis Borderline ECG MUSE ECG Diagnosis MUSE ECG Diagnosis Confirmed by Yovani Liu ([id number]) on 11/09/2024 9:56:32 AM MUSE ECG 11/08/2024 11:2 5 AM EDT 11/09/2024 9:56 AM EDT us Long Rios MD ECG ORDERABLES Final Result Performing Organization Address City/[facility]/ZIP Co de Phone Number MUSE ECG documented in this encounter Visit Diagnoses Diagnosis Calculus of gallbladder without cholecystitis without obstruction- Primary Calculus of gallbladder without cholecystitis without obstruction Metastasis to liver (CMS/HCC) Secondary malignant neoplasm of liver SBO (small bowel obstruction) (CMS/HCC) Unspecified intestinal obstruction H/O cholelithiasis Other cholelithiasis without obstruction Endometrial cancer (CMS/HCC) Malignant neoplasm of corpus uteri, except isthmus Metastasis to liver (CMS/HCC) 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) Obesity (BMI 30-39.9) documented in this encounter Admitting Diagnoses Diagnosis SBO (small bowel obstruction) (CMS/HCC) Unspecified intestinal obstruction H/O cholelithiasis Other cholelithiasis [...] Reason: Patient/family refused)1200 (Given - Provider: Clarissa Marie RN)1740 (Given - Provider: Clarissa Marie RN) calcium carbonate (Tums) chewable tablet 500 mg [...] 1230, Until Discontinued, Routine, On hold since [facility] 11/13/2024 at 2359 until manually unheld 1252 [...] 1715 (New Bag - Provider: May Fitzpatrick RN)1999 (Stopped - Provider: Jennifer Garcia - Comment: pain ful infusion so day shift ran for 3 hours) methocarbamol (Robaxin) tablet 500 mg 500 mg, Oral, 4 times daily, First dose on Sun11/10/24 at 1400, Until Discontinued, Routine 0838 (Given - Provider: May Fitzpatrick, INOCENCIA)1308 (Given - Provider: May Fitzpatrick, INOCENCIA)1716 (Given - Provider: May Fitzpatrick, INOCENCIA)2132 (Given - Provider: Jennifer Garcia) 0843 (Given - Provider: Leyda Greenwood RN)1426 (Given - Provider: Leyda Greenwood RN)1810 (Given - Provider: Leyda Greenwood RN)2019 [...] Jennifer Garcia) 09 (Given - Provider: Leyda Greenwood, INOCENCIA)2018 (Given - Provider: Sumi Renae RN) 0844 [...] nausea 0838 (See Alternative - Provider: May Fitzpatrick, INOCENCIA) 1252 (Given - Provider: Leyda Greenwood RN) 0844 (See Alternative - Provider: Clarissa Marie, INOCENCIA) ondansetron ODT (Zofran-ODT) disintegrating tablet 4 mg(Linked Group 4) 4 mg, Oral, Every 6 hours PRN, Starting on 11/08/24 at 1852, Until Sun11/14/24 at 2250, Routine, nausea, vomiting 0838 (Given - Provider: May Fitzpatrick, INOCENCIA) 1252 (See Alternative - Provider: Leyda Greenwood [...] documented as of this encounter Care Teams Sanitation Superintendent Relationship Specialty Start Date End Date Pcp, [place] [address] PCP - General Family Medicine 06/16/23 documented as of this encounter
--- OUTSIDE RECORDS SUMMARY | 2024-11-17 13:26 | XMS_ITS | Encounter Summary ---
Author Organization [facility] Address [address] [place] [address] Care Team Providers Care Conservation Assistant Name Role Phone Pcp, No Primary Care Provider Unavailabl e Reason for Referral * Imaging (Routine) - Closed Specialty Diagnoses / Procedures Referred By Contac t Referred To Contact Radiology Diagnoses Metastasis to liver (CMS/HCC) Procedures IR Embolization Tumor or Ischemia or Infarction Franko Nava MD [address] [place] [address] Phone: tel: fax: Referral ID Status Reason Start Date Expiration Date Visits Re quested Visits Authorized [id number] Closed 11/14/2024 05/16/2026 1 1 Reason for Visit * Reason Comments Vomiting * Auth/Cert (Routine) Specialty Diagnoses / Procedures Referred By Contac t Referred To Contact Diagnoses RUQ abdominal pain Vinicius Love MD [address] [facility] [address] [place] [address] Phone: tel: fax: PAV A Emergency Department [address] [place] [address] Phone: tel: Referral ID Status Reason Start Date Expiration Date Visits Re quested Visits Authorized [id number] 1 1 Encounter Details Date Type Department Care Team (Late st Contact Info) Description 11/17/2024 1:26 PM EDT - 11/21/2024 10:43 AM EDT Hospital Encounter PAV A Inpatient [facility] [address] [place] [address] Elisabeth Hernandez MD [address] [place] [address] Vinicius Love MD [address] [place] [address] RUQ abdominal pain (Primary Dx); [...] any time in the past [address] [facility], were you homeless or living in a group home (including now)? No 11/18/2024 [facility] Utilities Answer Date Recorded In [...] drink first t nicolas in the morning (EYE-SCRATCH BRUSHER) to steady your nerves or to get [...] - 11/17/2024 3:36 PM EDT Call MD director of business continuity for GYO service if: - you have a fever of 100.4 F or more - vaginal bleeding similar to a period - uncontrolled pain - difficulty with urination - persistent nausea/vomiting Follow up: Dr. Vinicius Love - [facility] [address] [facility], [address], [place] [address] documented in this encounter Medications at Time [...] will discharge home once complete. * [facility] - Kim Black RN - 11/21/2024 8:57 AM EDT Images from the original note were not included. [id number] Pantoprazole WHY is this medicine prescribed? Pantoprazole [...] or doctor for a copy of the title inspector's information for the patient. Are there OTHER [...] and out of their sight and reach. [email or web address]ines Dispose of unneeded medications in a way [...] 911. What OTHER INFORMATION should I know? Keep [...] of all of the prescription and nonprescription (rzhm-oba-qjtxdla) medicines, vitamins, minerals, and dietary supplements you [...] independent, informed decision of an appropriate health home care aide, and the information is provided for informational [...] The [employer]System [employer]ists??, [address], [address], [place], [place]. All Rights Reserved. Duplication for commercial use must be authorized by [facility]. Selected Revisions: January 24, 2023. AHFS?? Patient Medication Information?. ?? Copyright, 2024 * [facility] - Kim Black RN - 11/21/2024 8:57 AM EDT Images from the original note were not included. [id number] Ondansetron WHY is this medicine prescribed? Ondansetron [...] and out of their sight and reach. [email or web address] Dispose of unneeded medications in a way [...] be awakened, immediately call emergency services at 010. Symptoms of overdose may include: ? sudden [...] of all of the prescription and nonprescription (saml-dul-ktfwfvt) medicines, vitamins, minerals, and dietary supplements you [...] independent, informed decision of an appropriate health home care aide, and the information is provided for informational [...] The [employer]-System Pharmacists??, [address], [address], [place], [place]. All Rights Reserved. Duplication for commercial use must be authorized by [facility]. Selected Revisions: September 29, 2023. AHFS?? Patient Medication Information?. ?? Copyright, 2024 * [facility] - Kim Black RN - 11/21/2024 8:57 AM EDT Images from the original note were not included. [id number] Magnesium Oxide WHY is this medicine prescribed? [...] of all of the prescription and nonprescription (ykch-xxm-jtwxqth) medicines, vitamins, minerals, and dietary supplements you [...] independent, informed decision of an appropriate health home care aide, and the information is provided for informational [...] The [employer]-System Pharmacists??, [address], [address], [place], [place]. All Rights Reserved. Duplication for commercial use must be authorized by [facility]. Selected Revisions: August 30, 2023. AHFS?? Patient Medication Information?. ?? Copyright, 2024 * [facility] - Kim Black RN - 11/21/2024 8:56 AM EDT Images from the original note were not included. [id number] Abdominal Pain Abdominal pain means pain in [...] All medicines you take, both prescription and cqdh-hzz-mzfbrip ? What vitamins, herbs, and other supplements [...] again, start lightly. Eat small amounts of uwoo-oz-axbbpu, low-fat foods. These include applesauce, toast, or [...] bed. Last Reviewed Date: 2023 00:00:00 ?? [id number] [employer]. All rights reserved. This information is not intended as a substitute for professional medical care. Always follow your healthcare professional's instructions. * Discharge Instr - Other Orders - Kim Black RN - 11/21/2024 8:56 AM EDT If you need to contact your doctors after hours, please call [phone] and ask for the doctor brittany for GYO-MUFFLE OPERATOR Oncology. * Discharge Summary - Maggie Nguyen MD - 11/21/2024 8:21 AM EDT Images from the original note were not included. DISCHARGE SUMMARY Hospitalization Admit Date/Time: 11/17/2024 1:26 PM Admitting Attending: Vinicius Love Discharge Date: 11/21/2024 Discharge Attending Physician: Vinicius Love MD PCP name and Address: Pcp, No [address] [facility] / [place] [address] Referring provider name and address: No referring provider defined for this encounter. Chief Concern, Brief History of Present Illness, and Hospital Course Radha Aparicio is a 44 y.o. with high grade endometroid adenocarcinoma who presented with n/v and loose stools and was admitted on 11/17. RUQ US showed gallbladder thickening concerning for cholecystitis. Patient was made NPO and underwent Bullitt embolization of liver mass and liver mass [...] MD in 1 week. Surgeries and Procedures Bullitt embolization of liver mass with liver mass [...] Your Medications These medications were sent to [facility] - [place], [place] - 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 Viniicus Love - [facility] [address], [address], [place] [address] Outpatient Follow-Up Future Appointments Date Time Provider Department Center 12/04/2024 10:00 AM Vinicius Love MD [facility] Viral Test Results Pending At Discharge Pending Labs [...] CALCIUM 8.1 (L) 11/20/2024 Imaging: Assessment/Plan Radha Apariico is a 44 y.o. with high grade endometrioid adenocarcinoma and persistent n/v/diarrhea and ab pain c/f cholecystitis. # n/v, diarrhea # ab pain # GB thickening - pt reports doing well on pain and nausea regimen since discharge 11/12 - n/v started 11/17 am with associated diarrhea - Labs H 17-84-1a-78-66-0i-26-22-1u P 308-220-249 W 36-1-12-15-13 Lipase 14 - RUQ US 11/17: cholelithiasis w/ gallbladder wall thickening c/f cholecystitis. Redemonstrated largeintraparenchymal liver mass. Few punctate nonobstructive renal calculi in R kidney, no hydro - PE: +[place] sign, no signs of acute peritonitis - [...] biopsy with IR on 11/18 - AST [id number] ALT [phone] - T. Bili 0.7-0.7 - discussed with [...] per chart review) with Dr. Veloz at [facility] - Lost to follow up due [...] several large liver lesions (right dome -- [id number] (enlarged from 4.7 x 4.2) & 10.5 [...] conclusion of chemotherapy) - Care transferred to [facility] 11/10, s/p cefoxitin (11/08-11/10) - s/p liver embolization and biopsy 11/18 - liver biopsy 11/18 positive for malignant carcinoma # FEN/PPX - GIS/HLIV - SCDs/pLov - Replete electrolytes PRN Dispo: Discharge today Please message on-call GYO resident via [employer] Secure Chat or page [phone] for questions or concerns regarding this patient's [...] Note Radha Aparicio 44 y.o. female CSN: [id number] Admission: 11/17/2024 1:26 PM Primary Problem: RUQ abdominal pain Primary Elevator Repairer Apprentice: Primary Caregiver: Self Assistance Available at Discharge: aunt Clara and Jennifer Current Outpatient/Agency/Support Group: clinic(s) Availability of Care Givers (#Hours): 24 hours Family/Elevator Repairer Apprentice(s) Willingness Assessed to care for patient at home: Yes Family/Elevator Repairer Apprentice(s) Readiness Assessed to care for patient at home: Yes Housing Circumstances-Z Codes: Housing Circumstances (select all that apply): Low Income (101-300% Federal Poverty Guidlines) - Z596 Discharge Facility/Level of Care Needs: Discharge Facility/Level of Care Needs: 1-Home or Self Care Patient's Choice of Community Agency(s): [facility] Patient/Family Anticipated Services at Transition: Patient/Family [...] and will provide transport and home assistance. [id number] enrollment complete. Radha Langston RN * Significant [...] cholecystitis. Patient was made NPO and underwent Bullitt embolization of liver mass and liver mass [...] am with associated diarrhea - Labs H [id number] P 308-220-249 W 12-9-11 Lipase 14 - RUQ US 11/17: cholelithiasis w/ gallbladder wall thickening c/f cholecystitis. Redemonstrated largeintraparenchymal liver mass. Few punctate nonobstructive renal calculi in R kidney, no hydro - PE: +[place] sign, no signs of acute peritonitis - [...] per chart review) with Dr. Veloz at [facility] - Lost to follow up due [...] several large liver lesions (right dome -- [id number] (enlarged from 4.7 x 4.2) & 10.5 [...] management. Please message on-call GYO resident via [employer] Secure Chat or page [phone] for questions or concerns regarding this patient's [...] Goal (Individualized) Outcome: Ongoing, Progressing Flowsheets (Taken 11/19/20242029) Patient/Family-Specific Goals (Include Timeframe): Pt will have [...] and Integrity Outcome: Ongoing, Progressing * Ismael MolinaErika Solo RN - 11/19/2024 9:24 AM EDT Images from the original note were not included. 95659 Preventing a Surgical Site Infection A risk [...] of infection. ? Controlled body temperature. A cigeh-tozt-cbjfvq temperature during or after surgery prevents oxygen [...] and water or with an alcohol-based hand creative perfumer before and after caring for you. Don?t [...] away. Last Reviewed Date: 2024 00:00:00 ?? 3719-2460 [employer]. All rights reserved. This information is not intended as a substitute for professional medical care. Always follow your healthcare professional's instructions. * Ismael Velázquez - Erika Sawyer INOCENCIA Lora - 11/19/2024 9:24 AM EDT Images from the original note were not included. 49330 HIDA Scan A HIDA (hepatobiliary iminodiacetic acid [...] you?re taking. This includes vitamins, herbs, and urxl-piy-vkjetoq medicines. You may be told to stop [...] is done by a nuclear medicine or cat scan technologist. It can be done in a [...] tracer Last Reviewed Date: 2022 00:00:00 ?? 8608-2050 [employer]. All rights reserved. This information is not intended as a substitute for professional medical care. Always follow your healthcare professional's instructions. * [facility] - Erika Sawyer RN - 11/19/2024 9:24 AM EDT Images from the original note were not included. [id number] Possible Gallstone with Biliary Colic (Presumed) Your [...] rate Last Reviewed Date: 2021 00:00:00 ?? 3684-7832 [employer]. All rights reserved. This information is not intended as a substitute for professional medical care. Always follow your healthcare professional's instructions. * Ismael Velázquez - Erika Sawyer RN - 11/19/2024 9:24 AM EDT Images from the original note were not included. 79941 Cholecystectomy You?ve had painful attacks caused by [...] medicines you take. Include both prescription and jtwt-six-twvjrmr medicines. Also include vitamins, herbs, and supplements. [...] time Last Reviewed Date: 2023 00:00:00 ?? 5174-5154 [employer]. All rights reserved. This information is not [...] the video go to this web address: [email or web address] Or, scan this QR code with your smart phone ?? [facility] * Consults - Shruthi Espitia RD - 11/19/2024 8:26 AM EDT Adult Nutrition Evaluation Note Radha Aparicio 44 y.o. female CSN: [id number] Room/Bed 140/140A Nutrition evaluation type: assessment Reason [...] (Room air) O2 Delivery Method: Nasal cannula [place] Coma Scale Score: 15 Sudeep Scale Score: [...] 2 (BMI 35-39.9) Weight History: UBW ~245# [place] Body Weight (kg): 65.9 Percent [place] Body Weight: 174 Estimated Needs: Current Nutrition [...] Resp: [14-27] 20 BP: (110-159)/(60-91) 140/83 Vitals: 11/18/246 BP: (!) 140/83 Pulse: 68 Resp: Temp: [...] in R kidney, no hydro - PE: +[place] sign, no signs of acute peritonitis - [...] per chart review) with Dr. Veloz at [facility] - Lost to follow up due [...] several large liver lesions (right dome -- [id number] (enlarged from 4.7 x 4.2) & 10.5 [...] management. Please message on-call GYO resident via [employer] Secure Chat or page [phone] for questions or concerns regarding this patient's [...] Care Review Outcome: Ongoing, Progressing Flowsheets (Taken 11/18/2024127 by Vivienne Cm RN) Progress: no change [...] supine, legs elevated Taken 11/18/2024 012 by Adegu, [place] J, RN Skin Protection: incontinence pads utilized Intervention: Prevent and Manage VTE (Venous Thromboembolism) Risk Flowsheets (Taken 11/18/2024 2343) VTE Prevention/Management: SCDs (sequential compression devices) off Intervention: Prevent Infection Flowsheets (Taken 11/18/2024 0128 by Vivienne mC, RN) Infection Prevention: cohorting utilized environmental surveillance [...] Note Radha Aparicio 44 y.o. female CSN: [id number] Admission: 11/17/2024 1:26 PM Primary Problem: RUQ abdominal pain Senior Salesforce Developer reviewed chart and spoke with patient to complete this Initial Case Management Assessment. PCP: Dr. Benny Gonzalez Emergency Contact: Extended Emergency Contact Information Primary Emergency Contact: Juan F Aparicioson Mobile Relation: Brother Preferred language: Liberian Fertilizer Loader needed? No Secondary Emergency Contact: Irish Joiner Mobile Relation: Daughter Insurance: Primary Visit Coverage Payer Plan Sponsor Code Group Number Group Name [employer] [facility] . Primary Visit Coverage Subscriber Subscriber ID Subscriber Name Subscriber [facility] Subscriber Address [id number] RADHA APARICIO [id number] [place] [address] Patient information: re-admit to with high grade endometrioid adenocarcinoma and persistent n/v/diarrhea and ab pain c/f cholecystitis. Patient reports doing well on pain and nausea regimen since discharge 11/12 Nausea and vomiting started 9/8 am with associated diarrhea. Home address and insurance confirmed. Reports good support from family and home assistance and transport. Daily Living Activities: independent [address] [place] [address] Current DME: none reported. Income Information: unemployed Income meets expenses. Housing Circumstances-Z Codes: low income 101-300% Federal Poverty Guideline Patient Referred to: n/a Anticipated Discharge Date: 2-4 day Patient's Discharge Goal: home Assistance Available at Discharge: self/family Discharge Transport: family Follow Up Transport: family Home Health / Home Infusion / Outpatient Dialysis Services: none reported Living Will/Advance Directive/Power of Foot Specialist /Guardian: none reported Have you reviewed your [...] also pertinent to this visit. Planned Procedure: Bullitt embolization of liver mass with liver mass [...] been discussed with the patient and/or their outbound sales representative. All questions answered and they agree to proceed. [1] Social History Tobacco Use Smoking Status Every Day Smokeless Tobacco Not on file [2] Current Facility-Administered Medications Medication Dose Route Frequency Provider Last Rate Last Admin acetaminophen (Tylenol) tablet 1,000 mg 1,000 mg Oral q6h [facility] Deysi Pinedo MD 1,000 mg at 11/18/24 [...] in R kidney, no hydro - PE: +[place] sign, no signs of acute peritonitis - [...] per chart review) with Dr. Veloz at [facility] - Lost to follow up due [...] several large liver lesions (right dome -- [id number] (enlarged from 4.7 x 4.2) & 10.5 [...] management. Please message on-call GYO resident via [employer] Secure Chat or page [phone] for questions or concerns regarding this patient's [...] that would be needed Recommend admission to air traffic control specialist onc vs medicine EGS will continue to follow * H&P - Rebekah Kwan MD - 11/17/2024 4:08 PM EDT Gynecologic Oncology History and Physical Patient Name: Radha Aparicio : 1980 Date of Admission: 11/17/24 Chief Concern: Chief Complaint Patient presents with Vomiting Primary Oncologist: Dr. Vinicius Love/Dr. Veloz ([place]) Subjective Subjective History of Present Illness: Radha [...] no distension. Tenderness: Tenderness: TTP of RUQ, +[place] sign. There is no guarding or rebound. [...] Orion Garcia MD on 11/17/2024 2:59 PM @IMGFNDIMP@ Assessment/Plan Assessment / Plan Radha Aparicio [...] in R kidney, no hydro - PE: +[place] sign, no signs of acute peritonitis - [...] per chart review) with Dr. Veloz at [facility] - Lost to follow up due [...] several large liver lesions (right dome -- [id number] (enlarged from 4.7 x 4.2) & 10.5 [...] acute Please message on-call GYO resident via [employer] Secure Chat or page [phone] for questions or concerns regarding this patient's care. Rebekah FLORES PGY-1 *1953 [1] Past Medical History: Diagnosis Date Disease of salivary gland, unspecified Parotid mass [2] Past Surgical History: Procedure Laterality Date HYSTERECTOMY N/A Hysterectomy from [facility] TUBAL LIGATION N/A Tubal ligation from [facility] [3] Family History Problem Relation [...] No Social Connections: Unknown (12/17/2022) Received from [facility] Family and Community Support Help with [...] hysterectomy in 2018 along with chemo from 0189-9241) that previously saw the [place] [facility]YO team and was lost to follow up who recently was admitted with concern for RUQ pain, with recent admission when noted tohave worsening mets to liver and spleen with further workup pending and negative cholecystitis concern presenting to [facility] on 11/17/2024 with recurrent RUQ symptoms. [...] that would be needed Recommend admission to air traffic control specialist onc vs medicine EGS will continue to [...] (BMI 30-39.9) Dispo: Admit to medicine vs air traffic control specialist onc CODE STATUS: not specified This Consult, [...] tablet 500 mg 500 mg Oral q6h [facility] Rebekah Kwan MD lactated Ringer's infusion 75 [...] and urinary symptoms. History provided by: Patient v belt skiver used: No I have reviewed and agree [...] and Affect: Mood normal. Behavior: Behavior normal. [place] Coma Scale Score: 15 ED Course & [...] 1307 Lipase STAT Final result KAREEM GUIDRY P 11/17/24 1307 PT-INR STAT Final result KAREEM [...] accurately reflects the service I personally performed. ICorie MD, saw and evaluated the patient with [...] evaluate [RM] 1636 EGS rec: admission to air traffic control specialist onc vs medicine. recommend HIDA scan to further evaluate if there isconcern for cholecystitis before considering risks and benefits of any intervention that would be needed based on that [PA] 1731 MUFFLE OPERATOR ONC to admit patient to their team. [...] admission for the listed diagnoses. The OG MUFFLE OPERATOR service wasconsulted for admission and was agreeable to admit to Acute Floor (Med/Surg). ED Prescriptions None Disposition Admit Admitting/Attending Physician: VINICIUS LOVE [[id number]] Provider Care Team: GYO MUFFLE OPERATOR ONCOLOGY [[id number]] Are they the primary team?: [...] [address] [place] [address] Vinicius Love MD [address] [place] [address] Pending Results Name Type Priority Associated Diagnoses [...] * Transfuse RBC (11/21/2024 9:49 AM EDT) Vinicius Love MD BLOOD TRANSFUSION ORDERABLES Final Result * Transfuse RBC: 1 Units (11/21/2024 9:49 AM EDT) us Vinicius Love MD BLOOD TRANSFUSION ORDERABLES Final Result * Phosphorus, Plasma (11/21/2024 3:19 AM EDT) Phosphorus, Plasma 3.1 2.5 - 4.5 mg/dL 11/21/2024 5:27 AM EDT [facility] Blood Venous blood specimen / Unknown Venipuncture / Unknown 11/21/2024 3:19 AM EDT 11/21/2024 3:27 AM EDT us Vinicius Love MD LAB BLOOD ORDERABLES Final Re sult Performing Organization Address City/[facility]/ZIP Co de Phone Number [facility] [address] [place] [address] * (ABNORMAL) Magnesium (11/21/2024 3:19 AM EDT) Magnesium, Plasma 1.6(L) 1.9 - 2.4 mg/dL 11/21/2024 3:58 AM EDT [facility] Blood Venous blood specimen / Unknown Venipuncture / Unknown 11/21/2024 3:19 AM EDT 11/21/2024 3:27 AM EDT us Vinicius Love MD LAB BLOOD ORDERABLES Final Re sult Performing Organization Address [facility] Co de Phone Number [facility] [address] [place] [address] * (ABNORMAL) IONIZED CALCIUM, SERUM (11/21/2024 3:19 AM EDT) Ionized Calcium, Serum 4.5(L) 4.6 - 5.3 mg/dL LAB HEMATOLOGY METHOD 11/21/2024 3:53 AM EDT [facility] Blood Venous blood specimen / Unknown Venipuncture / Unknown 11/21/2024 3:19 AM EDT 11/21/2024 3:27 AM EDT us Vinicius Love MD LAB BLOOD ORDERABLES Final Re sult Performing Organization Address City/[facility]/ZIP Co de Phone Number [facility] [address] [place] [address] * (ABNORMAL) Comprehensive metabolic panel (11/21/2024 3:19 AM EDT) Glucose, Plasma 116(H) 74 - 99 mg/dL 11/21/2024 3:58 AM EDT [facility] BUN, Plasma 11 7 - 21 mg/dL 11/21/2024 3:58 AM EDT [facility] Creatinine, Plasma 0.77 0.60 - 1.10 mg/dL 11/21/2024 3:58 AM EDT [facility] BUN/Creatinine Ratio 14 11/21/2024 3:58 AM EDT [facility] Sodium, Plasma 137 136 - 145 mmol/L 11/21/2024 3:58 AM EDT [facility] Potassium, Plasma 3.4(L) 3.6 - 4.9 mmol/L 11/21/2024 3:58 AM EDT [facility] Chloride, Plasma 103 97 - 107 mmol/L 11/21/2024 3:58 AM EDT [facility] CO2, Plasma 21(L) 22 - 29 mmol/L 11/21/2024 3:58 AM EDT [facility] Anion Gap 13 6 - 16 mmol/L 11/21/2024 3:58 AM EDT [facility] Total Calcium, Plasma 7.9(L) 8.9 - 10.2 mg/dL 11/21/2024 3:58 AM EDT [facility] Total Protein 5.7(L) 6.3 - 7.9 g/dL 11/21/2024 3:58 AM EDT [facility] Albumin, Plasma 2.4(L) 3.5 - 5.2 g/dL 11/21/2024 3:58 AM EDT [facility] AST, Plasma 188(H) 10 - 35 U/L 11/21/2024 3:58 AM EDT [facility] ALT, Plasma 167(H) 10 - 35 U/L 11/21/2024 3:58 AM EDT [facility] Alkaline Phosphatase, Plasma 505(H) 35 - 104 U/L 11/21/2024 3:58 AM EDT [facility] Total Bilirubin, Plasma 1.0 0.2 - 1.1 mg/dL 11/21/2024 3:58 AM EDT [facility] eGFRcr 96.5 mL/min/1.7 3m*2 11/21/2024 3:58 AM EDT [facility] Comment:Reported eGFRcr in m L/min/1.73m2 is based the CKD-EPI 2020 equation that does not use a race coefficient. Blood Venous blood specimen / Unknown Venipuncture / Unknown 11/21/2024 3:19 AM EDT 11/21/2024 3:27 AM EDT us Vinicius Love MD LAB BLOOD ORDERABLES Final Re sult [facility] [address] [place] [address] * (ABNORMAL) CBC W/O Differential (11/21/2024 3:19 AM EDT) WBC Count 12.55(H) 3.70 - 10.30 10*3/uL LAB HEMATOLOGY METHOD 11/21/2024 3:35 AM EDT [facility] RBC Count 2.70(L) 3.90 - 5.20 10*6/uL LAB HEMATOLOGY METHOD 11/21/2024 3:35 AM EDT [facility] HGB 7.3(L) 11.2 - 15.7 g/dL LAB HEMATOLOGY METHOD 11/21/2024 3:35 AM EDT [facility] HCT 22.1(L) 34.0 - 45.0 % LAB HEMATOLOGY METHOD 11/21/2024 3:35 AM EDT [facility] Platelet Count 236 155 - 369 10*3/uL LAB HEMATOLOGY METHOD 11/21/2024 3:35 AM EDT [facility] MCV 82 79 - 98 fL LAB HEMATOLOGY METHOD 11/21/2024 3:35 AM EDT [facility] MCH 27.0 26.0 - 32.0 pg LAB HEMATOLOGY METHOD 11/21/2024 3:35 AM EDT [facility] MCHC 33.0 30.7 - 35.5 g/dL LAB HEMATOLOGY METHOD 11/21/2024 3:35 AM EDT [facility] RDW 16.0(H) 11.5 - 14.5 % LAB HEMATOLOGY METHOD 11/21/2024 3:35 AM EDT [facility] MPV 9.7 8.8 - 12.5 fL LAB HEMATOLOGY METHOD 11/21/2024 3:35 AM EDT [facility] nRBC 0.0 <=0.0 per 100 WBCs LAB HEMATOLOGY METHOD 11/21/2024 3:35 AM EDT [facility] Blood Venous blood specimen / Unknown Venipuncture / Unknown 11/21/2024 3:19 AM EDT 11/21/2024 3:28 AM EDT us Vinicius Love MD LAB BLOOD ORDERABLES Final Re sult [facility] [address] [place] [address] * (ABNORMAL) Comprehensive metabolic panel (11/20/2024 12:42 PM EDT) Glucose, Plasma 119(H) 74 - 99 mg/dL 11/20/2024 1:49 PM EDT [facility] BUN, Plasma 13 7 - 21 mg/dL 11/20/2024 1:49 PM EDT [facility] Creatinine, Plasma 0.79 0.60 - 1.10 mg/dL 11/20/2024 1:49 PM EDT [facility] BUN/Creatinine Ratio 16 11/20/2024 1:49 PM EDT [facility] Sodium, Plasma 135(L) 136 - 145 mmol/L 11/20/2024 1:49 PM EDT [facility] Potassium, Plasma 3.8 3.6 - 4.9 mmol/L 11/20/2024 1:49 PM EDT [facility] Chloride, Plasma 103 97 - 107 mmol/L 11/20/2024 1:49 PM EDT [facility] CO2, Plasma 20(L) 22 - 29 mmol/L 11/20/2024 1:49 PM EDT [facility] Anion Gap 12 6 - 16 mmol/L 11/20/2024 1:49 PM EDT [facility] Total Calcium, Plasma 8.1(L) 8.9 - 10.2 mg/dL 11/20/2024 1:49 PM EDT [facility] Total Protein 6.3 6.3 - 7.9 g/dL 11/20/2024 1:49 PM EDT [facility] Albumin, Plasma 2.7(L) 3.5 - 5.2 g/dL 11/20/2024 1:49 PM EDT [facility] AST, Plasma 442(H) 10 - 35 U/L 11/20/2024 1:49 PM EDT [facility] ALT, Plasma 254(H) 10 - 35 U/L 11/20/2024 1:49 PM EDT [facility] Alkaline Phosphatase, Plasma 513(H) 35 - 104 U/L 11/20/2024 1:49 PM EDT [facility] Total Bilirubin, Plasma 1.1 0.2 - 1.1 mg/dL 11/20/2024 1:49 PM EDT [facility] eGFRcr 93.6 mL/min/1.7 3m*2 11/20/2024 1:49 PM EDT [facility] Comment:Reported eGFRcr in m L/min/1.73m2 is based the CKD-EPI 2020 equation that does not use a race coefficient. Blood Venous blood specimen / Unknown Venipuncture / Unknown 11/20/2024 12:42 PM EDT 11/20/2024 1:11 PM EDT us Vinicius Love MD LAB BLOOD ORDERABLES Final Re sult [facility] [address] [place] [address] * (ABNORMAL) CBC W/O Differential (11/20/2024 12:42 PM EDT) WBC Count 15.25(H) 3.70 - 10.30 10*3/uL LAB HEMATOLOGY METHOD 11/20/2024 1:23 PM EDT [facility] RBC Count 3.09(L) 3.90 - 5.20 10*6/uL LAB HEMATOLOGY METHOD 11/20/2024 1:23 PM EDT [facility] HGB 8.5(L) 11.2 - 15.7 g/dL LAB HEMATOLOGY METHOD 11/20/2024 1:23 PM EDT [facility] HCT 25.5(L) 34.0 - 45.0 % LAB HEMATOLOGY METHOD 11/20/2024 1:23 PM EDT [facility] Platelet Count 292 155 - 369 10*3/uL LAB HEMATOLOGY METHOD 11/20/2024 1:23 PM EDT [facility] MCV 83 79 - 98 fL LAB HEMATOLOGY METHOD 11/20/2024 1:23 PM EDT [facility] MCH 27.5 26.0 - 32.0 pg LAB HEMATOLOGY METHOD 11/20/2024 1:23 PM EDT [facility] MCHC 33.3 30.7 - 35.5 g/dL LAB HEMATOLOGY METHOD 11/20/2024 1:23 PM EDT [facility] RDW 15.9(H) 11.5 - 14.5 % LAB HEMATOLOGY METHOD 11/20/2024 1:23 PM EDT [facility] MPV 9.7 8.8 - 12.5 fL LAB HEMATOLOGY METHOD 11/20/2024 1:23 PM EDT [facility] nRBC 0.0 <=0.0 per 100 WBCs LAB HEMATOLOGY METHOD 11/20/2024 1:23 PM EDT [facility] Blood Venous blood specimen / Unknown Venipuncture / Unknown 11/20/2024 12:42 PM EDT 11/20/2024 1:06 PM EDT Vinicius Love MD LAB BLOOD ORDERABLES Final Re sult [facility] [address] [place] [address] * Transfuse RBC (11/20/2024 10:47 AM EDT) us Vinicius Love MD BLOOD TRANSFUSION ORDERABLES Final Result * Transfuse RBC: 1 Units (11/20/2024 10:47 AM EDT) us Vinicius Love MD BLOOD TRANSFUSION ORDERABLES Final Result * Prepare Leukocyte Reduced RBC: 1 Units (11/20/2024 5:27 AM EDT) [facility] Product Code [id number] BLOO D BANK Dispense Status Transfused BLOOD BANK Blood Expiration Date BLOOD BANK Unit Number [id number] CH B LOOD BANK Product Blood Type 5100 BLOOD BANK Blood Type O+ BLOOD BANK Crossmatch Compatible BLOOD BANK Other Vinicius Love MD BLOOD BANK PRODUCT ORDERABLES Final Result Performing Organization Address [facility] Co de Phone Number BLOOD BANK [address] * Prepare Leukocyte Reduced RBC: 1 Units (11/20/2024 4:53 AM EDT) Product Code [id number] BLOO D BANK Dispense Status Transfused BLOOD BANK Blood Expiration Date [id number] BLOOD BANK Unit Number [id number] CH B LOOD BANK Product Blood Type 5100 BLOOD BANK Blood Type O+ BLOOD BANK Crossmatch Compatible BLOOD BANK Other Vinicius Love MD BLOOD BANK PRODUCT ORDERABLES Final Result Performing Organization Address [facility] de Phone Number BLOOD BANK [address] [place] [address] * (ABNORMAL) Magnesium (11/20/2024 2:39 AM EDT) Magnesium, Plasma 1.7(L) 1.9 - 2.4 mg/dL 11/20/2024 4:00 AM EDT [facility] Blood Venous blood specimen / Unknown Venipuncture / Unknown 11/20/2024 2:39 AM EDT 11/20/2024 3:28 AM EDT Vinicius Love MD LAB BLOOD ORDERABLES Final Re sult Performing Organization Address [facility] Co de Phone Number [facility] [address] [place] [address] * IONIZED CALCIUM, SERUM (11/20/2024 2:39 AM EDT) Ionized Calcium, Serum 4.6 4.6 - 5.3 mg/dL LAB HEMATOLOGY METHOD 11/20/2024 4:06 AM EDT [facility] Blood Venous blood specimen / Unknown Venipuncture / Unknown 11/20/2024 2:39 AM EDT 11/20/2024 3:28 AM EDT us Vinicius Love MD LAB BLOOD ORDERABLES Final Re sult [facility] [address] [place] [address] * (ABNORMAL) Comprehensive metabolic panel (11/20/2024 2:39 AM EDT) Glucose, Plasma 108(H) 74 - 99 mg/dL 11/20/2024 4:17 AM EDT [facility] BUN, Plasma 15 7 - 21 mg/dL 11/20/2024 4:17 AM EDT [facility] Creatinine, Plasma 0.91 0.60 - 1.10 mg/dL 11/20/2024 4:17 AM EDT [facility] BUN/Creatinine Ratio 16 11/20/2024 4:17 AM EDT [facility] Sodium, Plasma 139 136 - 145 mmol/L 11/20/2024 4:17 AM EDT [facility] Potassium, Plasma 3.9 3.6 - 4.9 mmol/L 11/20/2024 4:17 AM EDT [facility] Chloride, Plasma 105 97 - 107 mmol/L 11/20/2024 4:17 AM EDT [facility] CO2, Plasma 22 22 - 29 mmol/L 11/20/2024 4:17 AM EDT [facility] Anion Gap 12 6 - 16 mmol/L 11/20/2024 4:17 AM EDT [facility] Total Calcium, Plasma 8.0(L) 8.9 - 10.2 mg/dL 11/20/2024 4:17 AM EDT [facility] Total Protein 6.0(L) 6.3 - 7.9 g/dL 11/20/2024 4:17 AM EDT [facility] Albumin, Plasma 2.5(L) 3.5 - 5.2 g/dL 11/20/2024 4:17 AM EDT [facility] AST, Plasma 701(H) 10 - 35 U/L 11/20/2024 4:17 AM EDT [facility] ALT, Plasma 326(H) 10 - 35 U/L 11/20/2024 4:17 AM EDT [facility] Alkaline Phosphatase, Plasma 478(H) 35 - 104 U/L 11/20/2024 4:17 AM EDT [facility] Total Bilirubin, Plasma 0.7 0.2 - 1.1 mg/dL 11/20/2024 4:17 AM EDT [facility] eGFRcr 79.0 mL/min/1.7 3m*2 11/20/2024 4:17 AM EDT [facility] Comment:Reported eGFRcr in m L/min/1.73m2 is based the CKD-EPI 2020 equation that does not use a race coefficient. Blood Venous blood specimen / Unknown Venipuncture / Unknown 11/20/2024 2:39 AM EDT 11/20/2024 3:28 AM EDT us Vinicius Love MD LAB BLOOD ORDERABLES Final Re sult [facility] [address] [place] [address] * (ABNORMAL) CBC W/O Differential (11/20/2024 2:39 AM EDT) WBC Count 10.93(H) 3.70 - 10.30 10*3/uL LAB HEMATOLOGY METHOD 11/20/2024 3:40 AM EDT [facility] RBC Count 2.57(L) 3.90 - 5.20 10*6/uL LAB HEMATOLOGY METHOD 11/20/2024 3:40 AM EDT [facility] HGB 6.7(L) 11.2 - 15.7 g/dL LAB HEMATOLOGY METHOD 11/20/2024 3:40 AM EDT [facility] HCT 21.2(L) 34.0 - 45.0 % LAB HEMATOLOGY METHOD 11/20/2024 3:40 AM EDT [facility] Platelet Count 261 155 - 369 10*3/uL LAB HEMATOLOGY METHOD 11/20/2024 3:40 AM EDT [facility] MCV 83 79 - 98 fL LAB HEMATOLOGY METHOD 11/20/2024 3:40 AM EDT [facility] MCH 26.1 26.0 - 32.0 pg LAB HEMATOLOGY METHOD 11/20/2024 3:40 AM EDT [facility] MCHC 31.6 30.7 - 35.5 g/dL LAB HEMATOLOGY METHOD 11/20/2024 3:40 AM EDT [facility] RDW 16.5(H) 11.5 - 14.5 % LAB HEMATOLOGY METHOD 11/20/2024 3:40 AM EDT [facility] MPV 10.1 8.8 - 12.5 fL LAB HEMATOLOGY METHOD 11/20/2024 3:40 AM EDT [facility] nRBC 0.0 <=0.0 per 100 WBCs LAB HEMATOLOGY METHOD 11/20/2024 3:40 AM EDT [facility] Blood Venous blood specimen / Unknown Venipuncture / Unknown 11/20/2024 2:39 AM EDT 11/20/2024 3:24 AM EDT us Vinicius Love MD LAB BLOOD ORDERABLES Final Re sult [facility] [address] [place] [address] * NM Hepatobiliary Scan w Pharm Challenge [...] 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 At 58 [...] 11/19/2024 5:29 PM us Vinicius Love MD IMG NM PROCEDURES Final Resul t * Magnesium (11/19/2024 4:11 AM EDT) Magnesium, Plasma 2.0 1.9 - 2.4 mg/dL 11/19/2024 5:24 AM EDT [facility] Blood Venous blood specimen / Unknown Venipuncture / Unknown 11/19/2024 4:11 AM EDT 11/19/2024 4:17 AM EDT Vinicius Love MD LAB BLOOD ORDERABLES Final Re sult Performing Organization Address City/[facility]/ZIP Co de Phone Number [facility] [address] [place] [address] * IONIZED CALCIUM, SERUM (11/19/2024 4:11 AM EDT) Ionized Calcium, Serum 4.7 4.6 - 5.3 mg/dL LAB HEMATOLOGY METHOD 11/19/2024 4:45 AM EDT [facility] Blood Venous blood specimen / Unknown Venipuncture / Unknown 11/19/2024 4:11 AM EDT 11/19/2024 4:17 AM EDT Vinicius Love MD LAB BLOOD ORDERABLES Final Re sult Performing Organization Address [facility] Co de Phone Number [facility] [address] [place] [address] * (ABNORMAL) Comprehensive metabolic panel (11/19/2024 4:11 AM EDT) Glucose, Plasma 118(H) 74 - 99 mg/dL 11/19/2024 5:24 AM EDT [facility] BUN, Plasma 11 7 - 21 mg/dL 11/19/2024 5:24 AM EDT [facility] Creatinine, Plasma 0.79 0.60 - 1.10 mg/dL 11/19/2024 5:24 AM EDT [facility] BUN/Creatinine Ratio 14 11/19/2024 5:24 AM EDT [facility] Sodium, Plasma 139 136 - 145 mmol/L 11/19/2024 5:24 AM EDT [facility] Potassium, Plasma 4.4 3.6 - 4.9 mmol/L 11/19/2024 5:24 AM EDT [facility] Chloride, Plasma 104 97 - 107 mmol/L 11/19/2024 5:24 AM EDT [facility] CO2, Plasma 20(L) 22 - 29 mmol/L 11/19/2024 5:24 AM EDT [facility] Anion Gap 15 6 - 16 mmol/L 11/19/2024 5:24 AM EDT [facility] Total Calcium, Plasma 8.4(L) 8.9 - 10.2 mg/dL 11/19/2024 5:24 AM EDT [facility] Total Protein 6.9 6.3 - 7.9 g/dL 11/19/2024 5:24 AM EDT [facility] Albumin, Plasma 3.0(L) 3.5 - 5.2 g/dL 11/19/2024 5:24 AM EDT [facility] AST, Plasma 1,474(H) 10 - 35 U/L 11/19/2024 5:24 AM EDT [facility] ALT, Plasma 388(H) 10 - 35 U/L 11/19/2024 5:24 AM EDT [facility] Alkaline Phosphatase, Plasma 321(H) 35 - 104 U/L 11/19/2024 5:24 AM EDT [facility] Total Bilirubin, Plasma 0.7 0.2 - 1.1 mg/dL 11/19/2024 5:24 AM EDT [facility] eGFRcr 93.6 mL/min/1.7 3m*2 11/19/2024 5:24 AM EDT [facility] Comment:Reported eGFRcr in m L/min/1.73m2 is based the CKD-EPI 2020 equation that does not use a race coefficient. Blood Venous blood specimen / Unknown Venipuncture / Unknown 11/19/2024 4:11 AM EDT 11/19/2024 4:17 AM EDT us Vinicius Love MD LAB BLOOD ORDERABLES Final Re sult [facility] [address] [place] [address] * (ABNORMAL) CBC W/O Differential (11/19/2024 4:11 AM EDT) WBC Count 10.74(H) 3.70 - 10.30 10*3/uL LAB HEMATOLOGY METHOD 11/19/2024 4:37 AM EDT [facility] RBC Count 2.90(L) 3.90 - 5.20 10*6/uL LAB HEMATOLOGY METHOD 11/19/2024 4:37 AM EDT [facility] HGB 7.8(L) 11.2 - 15.7 g/dL LAB HEMATOLOGY METHOD 11/19/2024 4:37 AM EDT [facility] HCT 24.5(L) 34.0 - 45.0 % LAB HEMATOLOGY METHOD 11/19/2024 4:37 AM EDT [facility] Platelet Count 249 155 - 369 10*3/uL LAB HEMATOLOGY METHOD 11/19/2024 4:37 AM EDT [facility] MCV 85 79 - 98 fL LAB HEMATOLOGY METHOD 11/19/2024 4:37 AM EDT [facility] MCH 26.9 26.0 - 32.0 pg LAB HEMATOLOGY METHOD 11/19/2024 4:37 AM EDT [facility] MCHC 31.8 30.7 - 35.5 g/dL LAB HEMATOLOGY METHOD 11/19/2024 4:37 AM EDT [facility] RDW 16.1(H) 11.5 - 14.5 % LAB HEMATOLOGY METHOD 11/19/2024 4:37 AM EDT [facility] MPV 10.1 8.8 - 12.5 fL LAB HEMATOLOGY METHOD 11/19/2024 4:37 AM EDT [facility] nRBC 0.0 <=0.0 per 100 WBCs LAB HEMATOLOGY METHOD 11/19/2024 4:37 AM EDT [facility] Blood Venous blood specimen / Unknown Venipuncture / Unknown 11/19/2024 4:11 AM EDT 11/19/2024 4:17 AM EDT us Vinicius Love MD LAB BLOOD ORDERABLES Final Re sult [facility] [address] [place] [address] * Surgical Pathology Exam (11/18/2024 3:57 PM EDT) Case Report Surgical Pathology Case: [id number] Authorizing Provider: Franko Nava MD Collected: 11/18/2024 4079 Ordering Location: [facility] A Emergency Department Received: 11/18/2024 1620 Pathologist: Geovanny Gomes DO Specimen: Liver 5 5:03 PM EDT [facility] Final Diagnosis LIVER, BIOPSY: - POSITIVE FOR METASTATIC CARCINOMA (SEE COMMENT). 5 5:03 PM EDT [facility] at 1703 EDT Comment The [...] grade endometrioid adenocarcinoma. 5 5:03 PM EDT [facility] Clinical Information mets to the liver 5 5:03 PM EDT [facility] Special and Immunohistochemical Stains IHC: A1-2 CK7: Positive in tumor cells. A1-3 PAX8: Positive in tumor cells. A1-4 ER Non-Quantitative: Positive in tumor cells. All controls show appropriate reactivity. All immunohistochemist ry, in situ hybridization, and histochemical tests were developed by and are performed at the [facility], [address] [place] [address]. All tests reported here, except those addressing [...] of false negativity on decalcified specimens. 5 5:03 PM EDT [facility] Gross Description A. LIVER Received in formalin labeled l iver , are multiple red-rosales soft tissue cores measuring from 0.3 cm to 1.5 cm in length and up to 0.1 cm in diameter. Entirely submitted in cassette A1. Cold Time: 0 Ro Harper Esvin 5:03 PM EDT [facility] Intradepartmental Consultation with Agreement Dr. Fuentes 5:03 PM EDT [facility] Note: A resident was involved in the service. I attest I examined the relevant preparations for the specimens and confirmed the diagnosis or interpretation. 5:03 PM EDT [facility] Tissue Liver structure / Unknown Non-blood Collection / Unknown 11/18/2024 3:57 PM EDT 11/18/2024 4:20 PM EDT us Franko Nava MD LAB PATHOLOGY ORDERABLES Fin al Result Performing Organization Address City/State/[facility] Co de Phone Number [facility] [address] [place] [address] * US Guided Needle Biopsy Liver (11/18/2024 [...] concern for intratumoral hemorrhage. Patient presents to [facility] for bland embolization of tumor. Additionally, rebiopsy of liver mass is planned due to possible progression. TECHNIQUE: Solution Lead: Franko Nava MD Secondary Coagulating Bath Operator: Luis Miguel Estes M.D. Rad Dose: [phone] [...] 5 F vascular sheath. Using a 5 Filipino contra 2 catheter, the celiac axis was [...] concern for intratumoral hemorrhage. Patient presents to [facility] fordrift embolization of tumor. Additionally, rebiopsy of liver mass isplanned due to possible progression. TECHNIQUE: Solution Lead: Franko Nava MD Secondary Coagulating Bath Operator: Luis Miguel Estes M.D. Rad Dose: [phone] [...] 5 F vascular sheath. Using a 5 Filipino contra 2catheter, the celiac axis was catheterized. [...] 11/20/2024 12:24 PM us Franko Nava MD IM US PROCEDURES Final Resu lt * IR [...] concern for intratumoral hemorrhage. Patient presents to [facility] for bland embolization of tumor. Additionally, rebiopsy of liver mass is planned due to possible progression. TECHNIQUE: Solution Lead: Franko Nava MD Secondary Coagulating Bath Operator: Luis Miguel Estes M.D. Rad Dose: [phone] [...] 5 F vascular sheath. Using a 5 Filipino contra 2 catheter, the celiac axis was [...] concern for intratumoral hemorrhage. Patient presents to [facility] embolization of tumor. Additionally, rebiopsy of liver mass isplanned due to possible progression. TECHNIQUE: Solution Lead: Franko Nava MD Secondary Coagulating Bath Operator: Luis Miguel Estes M.D. Rad Dose: [phone] [...] 5 F vascular sheath. Using a 5 Filipino contra 2catheter, the celiac axis was catheterized. [...] 2:55 PM EDT) Case Report Cytology Case: [id number] Authorizing Provider: Franko Nava MD Collected: 11/18/2024 1455 Ordering Location: [facility] A Emergency Department Received: 11/18/2024 1520 Specimen: Liver, LIVER, CT GUIDED CORE BIOPSY 3:41 PM EDT [facility] Final Diagnosis A. LIVER, CT GUIDED CORE BIOPSY: - POSITIVE FOR MALIGNANCY, METASTATIC CARCINOMA CONSISTENT WITH PREVIOUSLY DIAGNOSED ENDOMETRIAL CARCINOMA, SEE COMMENT 3:41 PM EDT [facility] at 1541 EDT Comment History [...] not identical to the previous surgical specimen ([id number]), the staining pattern noted below is identical to the previous tumor. 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 Material is present in the cell block for ancillary testing as clinically indicated. 3:41 PM EDT [facility] Special and Immunohistochemical Stains IHC: A1-1 CK-AE1/AE3 Positive A1-2 PAX8 Positive A1-3 ER Non-Quantitative Positive, moderate intensity in the majority of the cells A1-4 ID Non-Quantitative Rare positive cells, weak intensity A1-5 Androgen Receptor Positive, variable All controls show appropriate reactivity. All immunohistochemis try, in situ hybridization, and histochemical tests were developed by and are performed at the [facility], [address] [facility], [place] [address]. All tests reported here, except those addressing [...] on decalcified specimens. 5 3:41 PM EDT [facility] Intradepartmental Consultation with Agreement Dr. Fuentes 5 3:41 PM EDT [facility] Immediate Evaluation Core biopsy performed by: Dr. Nava Number of sticks: 5 This service has been rendered in part by a resident. A pathologist has personally reviewed the slides/tissue and has rendered and is responsible for diagnosis for the diagnosis that appears on the report. 5 3:41 PM EDT [facility] Clinical History metastesis to liver 5 3:41 PM EDT [facility] Procedure Type US 5 3:41 PM EDT [facility] Size/Description of Lesion liver tumor 5 3:41 PM EDT [facility] Cancer History Yes 5 3:41 PM EDT [facility] Gross Description A. LIVER, CT [...] hours of formalin fixation. Cold Time: 13m 5 3:41 PM EDT [facility] Note: A resident was involved in the service. I attest I examined the relevant preparations for the specimens and confirmed the diagnosis or interpretation. 3:41 PM EDT [facility] Clinical Information No Dx found. 3:41 PM EDT [facility] Fine Needle Aspirate Liver structure / Unknown Non-blood Collection / Unknown 11/18/2024 2:55 PM EDT 11/18/2024 3:20 PM EDT Franko Nava MD LAB CYTOLOGY ORDERABLES Sonali l Result [facility] [address] [place] [address] * Transfuse RBC (11/18/2024 1:00 PM EDT) [...] BLOOD BANK TEST ORDERABLE S Final Result BLOOD BANK [address] [place] [address], * Prepare Leukocyte Reduced RBC: 1 Units (11/18/2024 8:49 AM EDT) Product Code [id number] CH BLOO D BANK Dispense Status Transfused BLOOD BANK Blood Expiration Date [id number] BLOOD BANK Unit Number [id number] B LOOD BANK Product Blood Type 5100 BLOOD BANK Blood Type O+ BLOOD BANK Crossmatch Compatible BLOOD BANK Other Vinicius Love MD BLOOD BANK PRODUCT ORDERABLES Final Result Performing Organization Address [facility] Co de Phone Number BLOOD BANK [address] [place] [address], * PERIPHERAL IV (SMART[employer] LINK) (11/18/2024 7:57 [...] and Hematocrit, Blood (11/18/2024 5:54 AM EDT) HGB 6.9(L) 11.2 - 15.7 g/dL LAB HEMATOLOGY METHOD 11/18/2024 6:06 AM EDT [facility] HCT 21.3(L) 34.0 - 45.0 % LAB HEMATOLOGY METHOD 11/18/2024 6:06 AM EDT [facility] Blood Venous blood specimen / Unknown Venipuncture / Unknown 11/18/2024 5:54 AM EDT 11/18/2024 6:04 AM EDT Vinicius Love MD LAB BLOOD ORDERABLES Final Re sult [facility] [address] [place] [address] * (ABNORMAL) Magnesium (11/18/2024 4:36 AM EDT) Magnesium, Plasma 1.6(L) 1.9 - 2.4 mg/dL 11/18/2024 5:20 AM EDT [facility] Blood Venous blood specimen / Unknown Venipuncture / Unknown 11/18/2024 4:36 AM EDT 11/18/2024 4:48 AM EDT Vinicius Love MD LAB BLOOD ORDERABLES Final Re sult [facility] [address] [place] [address] * IONIZED CALCIUM, SERUM (11/18/2024 4:36 AM EDT) Ionized Calcium, Serum 4.6 4.6 - 5.3 mg/dL LAB HEMATOLOGY METHOD 11/18/2024 5:29 AM EDT [facility] Blood Venous blood specimen / Unknown Venipuncture / Unknown 11/18/2024 4:36 AM EDT 11/18/2024 4:48 AM EDT Vinicius Love MD LAB BLOOD ORDERABLES Final Re sult [facility] [address] [place] [address] * (ABNORMAL) Comprehensive metabolic panel (11/18/2024 4:36 AM EDT) Glucose, Plasma 91 74 - 99 mg/dL 11/18/2024 5:20 AM EDT [facility] BUN, Plasma 10 7 - 21 mg/dL 11/18/2024 5:20 AM EDT [facility] Creatinine, Plasma 0.90 0.60 - 1.10 mg/dL 11/18/2024 5:20 AM EDT [facility] BUN/Creatinine Ratio 11 11/18/2024 5:20 AM EDT [facility] Sodium, Plasma 140 136 - 145 mmol/L 11/18/2024 5:20 AM EDT [facility] Potassium, Plasma 3.6 3.6 - 4.9 mmol/L 11/18/2024 5:20 AM EDT [facility] Chloride, Plasma 105 97 - 107 mmol/L 11/18/2024 5:20 AM EDT [facility] CO2, Plasma 22 22 - 29 mmol/L 11/18/2024 5:20 AM EDT [facility] Anion Gap 13 6 - 16 mmol/L 11/18/2024 5:20 AM EDT [facility] Total Calcium, Plasma 7.9(L) 8.9 - 10.2 mg/dL 11/18/2024 5:20 AM EDT [facility] Total Protein 5.8(L) 6.3 - 7.9 g/dL 11/18/2024 5:20 AM EDT [facility] Albumin, Plasma 2.6(L) 3.5 - 5.2 g/dL 11/18/2024 5:20 AM EDT [facility] AST, Plasma 23 10 - 35 U/L 11/18/2024 5:20 AM EDT [facility] ALT, Plasma 12 10 - 35 U/L 11/18/2024 5:20 AM EDT [facility] Alkaline Phosphatase, Plasma 263(H) 35 - 104 U/L 11/18/2024 5:20 AM EDT [facility] Total Bilirubin, Plasma 0.5 0.2 - 1.1 mg/dL 11/18/2024 5:20 AM EDT [facility] eGFRcr 80.0 mL/min/1.7 3m*2 11/18/2024 5:20 AM EDT [facility] Comment:Reported eGFRcr in m L/min/1.73m2 is based the CKD-EPI 2020 equation that does not use a race coefficient. Blood Venous blood specimen / Unknown Venipuncture / Unknown 11/18/2024 4:36 AM EDT 11/18/2024 4:48 AM EDT us Vinicius Love MD LAB BLOOD ORDERABLES Final Re sult [facility] [address] [place] [address] * (ABNORMAL) CBC W/O Differential (11/18/2024 4:36 AM EDT) WBC Count 9.43 3.70 - 10.30 10*3/uL LAB HEMATOLOGY METHOD 11/18/2024 4:51 AM EDT [facility] RBC Count 2.39(L) 3.90 - 5.20 10*6/uL LAB HEMATOLOGY METHOD 11/18/2024 4:51 AM EDT [facility] HGB 6.4(LL) 11.2 - 15.7 g/dL LAB HEMATOLOGY METHOD 11/18/2024 4:51 AM EDT [facility] HCT 19.8(L) 34.0 - 45.0 % LAB HEMATOLOGY METHOD 11/18/2024 4:51 AM EDT [facility] Platelet Count 220 155 - 369 10*3/uL LAB HEMATOLOGY METHOD 11/18/2024 4:51 AM EDT [facility] MCV 83 79 - 98 fL LAB HEMATOLOGY METHOD 11/18/2024 4:51 AM EDT [facility] MCH 26.8 26.0 - 32.0 pg LAB HEMATOLOGY METHOD 11/18/2024 4:51 AM EDT [facility] MCHC 32.3 30.7 - 35.5 g/dL LAB HEMATOLOGY METHOD 11/18/2024 4:51 AM EDT [facility] RDW 16.7(H) 11.5 - 14.5 % LAB HEMATOLOGY METHOD 11/18/2024 4:51 AM EDT [facility] MPV 9.3 8.8 - 12.5 fL LAB HEMATOLOGY METHOD 11/18/2024 4:51 AM EDT [facility] nRBC 0.0 <=0.0 per 100 WBCs LAB HEMATOLOGY METHOD 11/18/2024 4:51 AM EDT [facility] Blood Venous blood specimen / Unknown Venipuncture / Unknown 11/18/2024 4:36 AM EDT 11/18/2024 4:42 AM EDT us Vinicius Love MD LAB BLOOD ORDERABLES Final Re sult [facility] [address] [place] [address] * US Abdomen RUQ (11/17/2024 2:00 PM [...] - 35 sec 11/17/2024 1:44 PM EDT [facility] Blood Venous blood specimen / Unknown Venipuncture / Unknown 11/17/2024 1:25 PM EDT 11/17/2024 1:27 PM EDT Kareem Guidry MD LAB BLOOD ORDERABLES Fin al Result [facility] [address] [place] [address] * (ABNORMAL) PT-INR (11/17/2024 1:25 PM EDT) Prothrombin Time 15.4(H) 12.0 - 14.3 sec 11/17/2024 1:43 PM EDT [facility] INR 1.2(H) 0.9 - 1.1 11/17/2024 1:43 PM EDT [facility] Blood Venous blood specimen / Unknown Venipuncture / Unknown 11/17/2024 1:25 PM EDT 11/17/2024 1:27 PM EDT Narrative [facility] - 11/17/2024 1:43 PM EDT OPTIMAL INR RANGES FOR PATIENT ON ORAL ANTICOAGULANT THERAPY Prevention of venous thromboembolism INR 2.0 to 3.0 In patients with heart disease: Atrial fibrillation INR 2.0 to 3.0 Valvular heart disease INR 2.0 to 3.0 Tissue heart valves INR 2.0 to 3.0 Mechanical prosthetic valves INR 2.5 to 3.5 Prevention of recurrent RI INR 2.5 to 3.5 Kareem Guidry MD LAB BLOOD ORDERABLES Fin al Result Performing Organization Address City/[facility] Co de Phone Number [facility] [address] [place] [address] * (ABNORMAL) Lipase (11/17/2024 1:25 PM EDT) Lipase, Plasma 14(L) 19 - 63 U/L 11/17/2024 1:50 PM EDT [facility] Blood Venous blood specimen / Unknown Venipuncture / Unknown 11/17/2024 1:25 PM EDT 11/17/2024 1:27 PM EDT Kareem Guidry MD LAB BLOOD ORDERABLES Fin al Result [facility] [address] [place] [address] * (ABNORMAL) CMP (11/17/2024 1:25 PM EDT) Glucose, Plasma 89 74 - 99 mg/dL 11/17/2024 1:50 PM EDT [facility] BUN, Plasma 10 7 - 21 mg/dL 11/17/2024 1:50 PM EDT [facility] Creatinine, Plasma 0.88 0.60 - 1.10 mg/dL 11/17/2024 1:50 PM EDT [facility] BUN/Creatinine Ratio 11 11/17/2024 1:50 PM EDT [facility] Sodium, Plasma 137 136 - 145 mmol/L 11/17/2024 1:50 PM EDT [facility] Potassium, Plasma 3.6 3.6 - 4.9 mmol/L 11/17/2024 1:50 PM EDT [facility] Chloride, Plasma 102 97 - 107 mmol/L 11/17/2024 1:50 PM EDT [facility] CO2, Plasma 20(L) 22 - 29 mmol/L 11/17/2024 1:50 PM EDT [facility] Anion Gap 15 6 - 16 mmol/L 11/17/2024 1:50 PM EDT [facility] Total Calcium, Plasma 9.0 8.9 - 10.2 mg/dL 11/17/2024 1:50 PM EDT [facility] Total Protein 7.5 6.3 - 7.9 g/dL 11/17/2024 1:50 PM EDT [facility] Albumin, Plasma 3.0(L) 3.5 - 5.2 g/dL 11/17/2024 1:50 PM EDT [facility] AST, Plasma 32 10 - 35 U/L 11/17/2024 1:50 PM EDT [facility] ALT, Plasma 18 10 - 35 U/L 11/17/2024 1:50 PM EDT [facility] Alkaline Phosphatase, Plasma 378(H) 35 - 104 U/L 11/17/2024 1:50 PM EDT [facility] Total Bilirubin, Plasma 0.7 0.2 - 1.1 mg/dL 11/17/2024 1:50 PM EDT [facility] eGFRcr 82.2 mL/min/1.7 3m*2 11/17/2024 1:50 PM EDT [facility] Comment:Reported eGFRcr in m L/min/1.73m2 is based the CKD-EPI 2020 equation that does not use a race coefficient. Blood Venous blood specimen / Unknown Venipuncture / Unknown 11/17/2024 1:25 PM EDT 11/17/2024 1:27 PM EDT us Kareem Guidry MD LAB BLOOD ORDERABLES Fin al Result [facility] [address] [place] [address] * (ABNORMAL) CBC w/diff (11/17/2024 1:25 PM EDT) WBC Count 12.34(H) 3.70 - 10.30 10*3/uL LAB HEMATOLOGY METHOD 11/17/2024 1:30 PM EDT [facility] RBC Count 3.19(L) 3.90 - 5.20 10*6/uL LAB HEMATOLOGY METHOD 11/17/2024 1:30 PM EDT [facility] HGB 8.4(L) 11.2 - 15.7 g/dL LAB HEMATOLOGY METHOD 11/17/2024 1:30 PM EDT [facility] HCT 27.1(L) 34.0 - 45.0 % LAB HEMATOLOGY METHOD 11/17/2024 1:30 PM EDT [facility] Platelet Count 308 155 - 369 10*3/uL LAB HEMATOLOGY METHOD 11/17/2024 1:30 PM EDT [facility] MCV 85 79 - 98 fL LAB HEMATOLOGY METHOD 11/17/2024 1:30 PM EDT [facility] MCH 26.3 26.0 - 32.0 pg LAB HEMATOLOGY METHOD 11/17/2024 1:30 PM EDT [facility] MCHC 31.0 30.7 - 35.5 g/dL LAB HEMATOLOGY METHOD 11/17/2024 1:30 PM EDT [facility] RDW 16.7(H) 11.5 - 14.5 % LAB HEMATOLOGY METHOD 11/17/2024 1:30 PM EDT [facility] MPV 9.6 8.8 - 12.5 fL LAB HEMATOLOGY METHOD 11/17/2024 1:30 PM EDT [facility] nRBC 0.0 <=0.0 per 100 WBCs LAB HEMATOLOGY METHOD 11/17/2024 1:30 PM EDT [facility] Differential Type Automated LAB HEMATOLOGY METHOD 11/17/2024 1:30 PM EDT [facility] Neutrophils % 80 % LAB HEMATOLOGY METHOD 11/17/2024 1:30 PM EDT [facility] Lymphocytes % 11 % LAB HEMATOLOGY METHOD 11/17/2024 1:30 PM EDT [facility] Monocytes % 5 % LAB HEMATOLOGY METHOD 11/17/2024 1:30 PM EDT [facility] Eosinophils % 1 % LAB HEMATOLOGY METHOD 11/17/2024 1:30 PM EDT [facility] Basophils % 1 % LAB HEMATOLOGY METHOD 11/17/2024 1:30 PM EDT [facility] Immature Granulocytes % 2 % LAB HEMATOLOGY METHOD 11/17/2024 1:30 PM EDT [facility] Neutrophils Absolute 10.04(H) 1.60 - 6.10 10*3/uL LAB HEMATOLOGY METHOD 11/17/2024 1:30 PM EDT [facility] Lymphocytes Absolute 1.31 1.20 - 3.90 10*3/uL LAB HEMATOLOGY METHOD 11/17/2024 1:30 PM EDT [facility] Monocytes Absolute 0.62 0.30 - 0.90 10*3/uL LAB HEMATOLOGY METHOD 11/17/2024 1:30 PM EDT [facility] Eosinophils Absolute 0.08 0.00 - 0.50 10*3/uL LAB HEMATOLOGY METHOD 11/17/2024 1:30 PM EDT [facility] Basophils Absolute 0.06 0.00 - 0.10 10*3/uL LAB HEMATOLOGY METHOD 11/17/2024 1:30 PM EDT [facility] Immature Granulocytes Absolute 0.23(H) 0.00 - 0.06 10*3/uL LAB HEMATOLOGY METHOD 11/17/2024 1:30 PM EDT [facility] Blood Venous blood specimen / Unknown Venipuncture / Unknown 11/17/2024 1:25 PM EDT 11/17/2024 1:27 PM EDT [facility] - 11/17/2024 1:30 PM EDT Therapeutic decision making should be based on absolute values, rather than percentages. 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 liver (CMS/HCC) Secondary malignant neoplasm of liver H/O cholelithiasis [...] 1 dose, On Sun11/20/24 at 0545, Routine Given 11/20/2024 5:18 AM [...] Lew RN) 0842 (Given - Provider: Ro Barber RN) 0849 (Given - Provider: Ailyn Armenta, INOCENCIA) ibuprofen tablet 600 mg 600 mg, Oral, Every 6 hours scheduled, First dose on Sun11/20/24 at 0000, Until Discontinued, Routine 2340 (Given - Provider: Genny Ellis, INOCENCIA) 0518 (Given - Provider: Genny Ellis, RN)1126 (Given - Provider: Ro Barber RN)1846 (Given - Provider: Ro Barber RN)2341 (Given - Provider: Genny Ellis, INOCENCIA) 0533 (Given - Provider: Genny Ellis, RN) ketorolac (Toradol) injection 15 mg (COMPLETED) 15 mg, Intravenous, Once, 1 dose, On Sun11/19/24 at 0530, Routine 0446 (Given - Provider: Kareem Angelo RN) magnesium oxide (Mag-Ox) tablet 400 mg (COMPLETED) 400 mg, Oral, Once, 1 dose, On Laura 11/20/24 at 0545, Routine 0518 (Given - Provider: [...] in procedure)1717 (Given - Provider: Socrates Lew RN)203 (Given - Provider: Genny Ellis RN) 0812 [...] Kareem Angelo RN)1717 (Given - Provider: Socrates Lew RN) 0435 (Given - Provider: Genny Ellis RN)1655 (Given - Provider: Ro Barber, INOCENCIA) 0436 [...] pain 2030 (See Alternative - Provider: Genny Ellis RN) 1126 (Given - Provider: Ro Barber, [...] at 2027, Until Sun11/21/24 at 1244, Routine, moderate pain 2030 (Given - Provider: Genny Ellis RN) 1126 (See Alternative - Provider: Ro Barber RN) sodium chloride 0.9 % flush 10 [...] documented as of this encounter Care Teams Conservation Assistant Relationship Specialty Start Date End Date Pcp, [place] [address] PCP - General Family Medicine 06/16/23 documented as of this encounter
[2024-11-25 10:58] LABS: Hematocrit 28.9 % (37.0-47.0); Hemoglobin 8.9 g/dL (12.2-16.2); Immature Granulocytes % 3.3 %; Mean Corpuscular HGB Conc 30.8 g/dL (31.8-35.4); Mean Corpuscular Hemoglobin 26.6 pg (27.0-31.2); Mean Corpuscular Volume 86.5 fl (81-99); Nucleated Red Blood Cells % 0 %; Platelet Count 300 K/mm3 (142-424); Red Blood Count 3.34 M/mm3 (4.20-5.40); Red Cell Distribution Width-SD 51.1 fL; White Blood Count 11.0 K/mm3 (4.8-10.8)
--- OUTSIDE RECORDS SUMMARY | 2024-11-25 11:02 | XMS_ITS | Encounter Summary ---
Author Organization [facility] Address [address] [place] [address] Care Team Providers Care Ice Cream Mixer Name Role Phone Pcp, No Primary Care Provider Unavailabl e Encounter Details Date Type Department Care Team (Latest Contact Info) Description 11/18/2024 Travel Social History Tobacco Use Types Packs/Day Years [...] any time in the past 12 m [facility], were you homeless or living in a alf (including now)? No 11/18/2024 [facility] Utilities Answer Date Recorded In [...] drink first t nicolas in the morning (EYE-ETL DATABASE DEVELOPER) to steady your nerves or to get rid of a hangover? 0 11/18/2024 CAGE Questionnaire Score 0 025 Comments No Sex and Gender Information Value Date Recorded Sex Assigned at Not on file Legal Sex Female 7:49 PM EDT Gender Identity Not on file Sexual Orientation Not on file documented as of this encounter Functional Status * Calculated C-SSRS Risk Score (Lifetime/Recent) Answer Date of Assessment Author No Risk Indicated 11/18/2024 7:00 PM EDT Kareem Angelo, RN * Question Answer Date of Assessment Author 1. Wish to be (Past 1 Month) No 025 7:00 PM EDT Kareem Angelo, RN 2. Non-Specific Active Suici sierra Thoughts (Past 1 Month) No 11/18/2024 7:00 PM EDT Elyane Angelo, RN 6. Suicidal Behavior (Lifetime) No 5 7:00 PM EDT Kareem Angelo, RN documented as of this encounter Plan of Treatment Upcoming Encounters Date Type Department Care Team ([facility] st Contact Info) Description 12/04/2024 10:00 AM EDT Office Visit [facility] [address] [place] [address] Karol Jane MD [address] [facility] [address] [place] [address] documented as of this encounter Visit Diagnoses Not on filedocumented in this encounter Additional Health Concerns Assessment Noted Time A Body Mass Index follow-up plan has been documented for the patient 11/21/2024 8:58 AM EDT documented as of this encounter Care Teams Ice Cream Mixer Relationship Specialty Start Date End Date Pcp, No [address] [place] [address] PCP - General Family Medicine 06/16/23 documented as of this encounter
--- OUTSIDE RECORDS SUMMARY | 2024-11-25 11:02 | XMS_ITS | Encounter Summary ---
Author Organization [facility] Address [address] [place] [address] Care Team Providers Care Public Administration Teacher Name Role Phone Pcp, No Primary Care Provider Unavailabl e Encounter Details Date Type Department Care Team (Latest Contact Info) Description 11/08/2024 Travel Social History Tobacco Use Types Packs/Day [...] Date of Assessment Author No Risk Indicated 11/08/2024 11:22 AM EDT Ly Cabrera RN * Question Answer Date of Assessment Author 1. Wish to be (Past 1 Month) No 11/08/2024 11:22 AM EDT Shmuel King RN 2. Non-Specific Active Suicidal Thoughts (Past 1 Month) No 11/08/2024 11:22 AM EDT Shmuel King RN 6. Suicidal Behavior (Lifetime) No 11/08/2024 11:22 AM EDT Shmuel King RN documented as of this encounter Plan of Treatment Upcoming Encounters Date Type Department Care Team (Late st Contact Info) Description 12/04/2024 10:00 AM EDT Office Visit [facility] [address] [place] [address] Karol Jane MD [address] [place] [address] documented as of this encounter Visit Diagnoses Not on filedocumented in this encounter Additional Health Concerns Assessment Noted Time A Body Mass Index follow-up plan has been documented for the patient 11/14/2024 8:03 PM EDT documented as of this encounter Care Teams Public Administration Teacher Relationship Specialty Start Date End Date Pcp, No [address] [place] [address] PCP - General Family Medicine 06/16/23 documented as of this encounter
--- OUTSIDE RECORDS SUMMARY | 2024-11-25 11:02 | XMS_ITS ---
Author Organization [facility] Address [address] [address] Care Team Providers Care Duty Manager Name Role Phone Pcp, No Primary Care Provider Unavailabl e Active Problems Problem Noted Date Diagnosed Date RUQ abdominal pain 11/17/2024 Assessment & Plan (11/17/2024 6:02 PM EDT): Concern for stones and wall thickness of gallbladder to 4mm. Most recent CT also reviewed with large stone noted. However, she also had large metastatic lesions to liver. 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 Obesity (BMI 30-39.9) 11/10/2024 Calculus of gallbladder with out cholecystitis without obstruction 11/08/2024 11/08/2024 Overview (11/08/2024): RUQ pain with N/V/D,positive Park's sign, elevated neutrophils, and cholelithiasis on US Assessment & Plan (11/11/2024 11:30 AM EDT): - WBC of 13 - Cholelithiasis noted on RUQ US - Lactate 1.5 - NPO Assessment & Plan (11/10/2024 1:52 PM EDT): - WBC of 13 - Cholelithiasis noted on RUQ US - Lactate 1.5 - NPO Assessment & Plan (11/10/2024 7:11 AM EDT): - WBC of 13 - Cholelithiasis noted on RUQ US - Lactate 1.5 - NPO Assessment & Plan (11/08/2024 7:32 PM EDT): - WBC of 13 - Cholelithiasis noted on RUQ US - Lactate 1.5 - NPO SBO (small bowel obstruction) 11/08/2024 H/O cholelithiasis 11/08/2024 Assessment & Plan (11/11/2024 11:30 AM EDT): Does not appear to be symptomatic or causing cholecystitis Assessment & Plan (11/10/2024 1:52 PM EDT): Does not appear to be symptomatic or causing cholecystitis Current Treatment and Therapy Plans No current plan information found. Past Treatment and Therapy Plans No past plan information found. Lifetime Dose Tracking * Chemical Lifetime Dose Automatic Entry Manual Entr y Fluoro Time 15 minutes 0 minutes 15 minutes Air Kerma 3,348 mGy 0 mGy 3,348 mGy Air Kerma Area Product 74,819.66 Gym 0 Gym 74,819.66 Gym Resolved Problems Problem Noted Date Diagnosed Date Resolved Date Other cholelithiasis without obstruction 11/08/2024 11/10/2024
--- OUTSIDE RECORDS SUMMARY | 2024-11-25 11:02 | XMS_ITS | Encounter Summary ---
Author Organization [facility] [address] [facility] [place] [address] Care Team Providers Care Studio Sales Associate Name Role Phone Pcp, No Primary Care Provider Unavailabl e Encounter Details Date Type Department Care Team (Latest Contact Info) Description 11/09/2024 Travel Social History Tobacco Use Types Packs/Day [...] Risk Indicated 11/09/2024 8:00 PM EDT Edel Aguirre, RN * Question Answer Date of Assessment Author 1. Wish to be (Past 1 Month) No 025 8:00 PM EDT Edel Aguirre, RN 2. Non-Specific Active Suici sierra Thoughts (Past 1 Month) No 11/09/2024 8:00 PM EDT Edel Aguirre , RN 6. Suicidal Behavior (Lifetime) No 8:00 PM EDT Edel Aguirre, RN documented as of this encounter Plan of Treatment Upcoming Encounters Date Type Department Care Team (Late st Contact Info) Description 12/04/2024 10:00 AM EDT Office Visit [facility] [address] [place] [address] Karol Jane MD [address] [place] [address] documented as of this encounter Visit Diagnoses Not on filedocumented in this encounter Additional Health Concerns Assessment Noted Time A Body Mass Index follow-up plan has been documented for the patient 11/14/2024 8:03 PM EDT documented as of this encounter Care Teams Studio Sales Associate Relationship Specialty Start Date End Date Pcp, No [address] [place] [address] PCP - General Family Medicine 06/16/23 documented as of this encounter
--- OUTSIDE RECORDS SUMMARY | 2024-11-25 11:02 | XMS_ITS | Encounter Summary ---
Author Organization [facility] Address [address] [place] [address] Care Team Providers Care Cook Helper Dessert Name Role Phone Pcp, No Primary Care Provider Unavailabl e Encounter Details Date Type Department Care Team (Latest Contact Info) Description 11/14/2024 Travel Social History Tobacco Use Types Packs/Day [...] any time in the past 12 m [facility], were you homeless or living in a long term (including now)? No 11/11/2024 [facility] Utilities Answer Date Recorded In the [...] on file documented as of this encounter Plan of Treatment Upcoming Encounters Date Type Department Care Team (Late st Contact Info) Description 12/04/2024 10:00 AM EDT Office Visit [facility] [address] [place] [address] Karol Jane MD [address] [place] [address] documented as of this encounter Visit Diagnoses Not on filedocumented in this encounter Additional Health Concerns Assessment Noted Time A Body Mass Index follow-up plan has been documented for the patient 11/14/2024 8:03 PM EDT documented as of this encounter Care Teams Cook Helper Dessert Relationship Specialty Start Date End Date Pcp, No [address] [place] [address] PCP - General Family Medicine 06/16/23 documented as of this encounter
--- OUTSIDE RECORDS SUMMARY | 2024-11-25 11:02 | XMS_ITS | Encounter Summary ---
Author Organization [facility] Address [address] [place] [address] Care Team Providers Care Logistics Account Manager Name Role Phone Pcp, No Primary Care Provider Unavailabl e Encounter Details Date Type Department Care Team (Latest Contact Info) Description 11/11/2024 Travel Social History Tobacco Use Types Packs/Day [...] any time in the past 12 m [facility], were you homeless or living in a [facility] (including now)? No 11/11/2024 [facility] Utilities Answer Date Recorded In the [...] Office Visit [facility] [address] [place] [address] Karol Jane MD [address] [place] [address] documented as of this encounter Visit Diagnoses Not on filedocumented in this encounter Additional Health Concerns Infection Onset Date Last Indicated Resolved Time C. difficile Rule-Out 11/11/2024 11/11/20242024 9:22 PM EDT Gastrointestinal Rule-Out 11/11/2024 11/11/2024 10:19 PM EDT Assessment Noted Time A Body Mass Index follow-up plan has been documented for the patient 11/14/2024 8:03 PM EDT documented as of this encounter Care Teams Logistics Account Manager Relationship Specialty Start Date End Date Pcp, No [address] [place] [address] PCP - General Family Medicine 06/16/23 documented as of this encounter
--- OUTSIDE RECORDS SUMMARY | 2024-11-25 11:02 | XMS_ITS | Encounter Summary ---
Author Organization [facility] Address [address] [place] [address] Care Team Providers Care Oven Dumper Name Role Phone Pcp, No Primary Care Provider Unavailabl e Encounter Details Date Type Department Care Team (Late st Contact Info) Description 11/08/2024 Orders Only External Location [address] [place] [address] Provider, External Social History Tobacco Use Types Packs/Day Years [...] any time in the past 12 m [facility], were you homeless or living in a custodial (including now)? No 11/11/2024 [facility] Utilities Answer Date Recorded In [...] Gynecology [address] [place] [address] Karol Jane MD [address] [place] [address] documented as of this encounter Procedures Procedure Name Priority Date/Time Associated Diagnosis Comments US OUTSIDE IMAGES 11/08/2024 7:00 AM EDT documented in this encounter Results * US OUTSIDE IMAGES (11/08/2024 7:00 AM EDT) Anatomical Region Laterality Modality Ultrasound 11/08/2024 7:00 AM EDT us External Provider IMG US PROCEDURES Final Result documented in this encounter Visit Diagnoses Not on filedocumented in this encounter Additional Health Concerns Infection Onset Date Last Indicated Resolved Time C. difficile Rule-Out 11/11/2024 11/11/20242024 9:22 PM EDT Gastrointestinal Rule-Out 11/11/2024 11/11/2024 10:19 PM EDT Assessment Noted Time A Body Mass Index follow-up plan has been documented for the patient 11/14/2024 8:03 PM EDT documented as of this encounter Care Teams Oven Dumper Relationship Specialty Start Date End Date Pcp, [place] [address] PCP - General Family Medicine 06/16/23 documented as of this encounter
--- OUTSIDE RECORDS SUMMARY | 2024-11-25 11:02 | XMS_ITS | Encounter Summary ---
Author Organization [facility] Address [address] [place] [address] Care Team Providers Care Job Coach/Job Developer Name Role Phone Pcp, No Primary Care Provider Unavailabl e Encounter Details Date Type Department Care Team (Latest Contact Info) Description 11/19/2024 Travel Social History Tobacco Use Types Packs/Day [...] any time in the past 12 m [facility], were you homeless or living in a care home (including now)? No 11/18/2024 [facility] Utilities Answer Date Recorded In [...] drink first t nicolas in the morning (EYE-IT TRAINING SPECIALIST) to steady your nerves or to get [...] Date of Assessment Author No Risk Indicated 11/19/2024 10:00 AM EDT Socrates Barragan RN * Question Answer Date of Assessment Author 1. Wish to be (Past 1 Month) No 11/19/2024 10:00 AM EDT Socrates Lew, RN 2. Non-Specific Active Suici sierra Thoughts (Past 1 Month) No 11/19/2024 10:00 AM EDT Mechelle Lew RN 6. Suicidal Behavior (Lifetime) No 10:00 AM EDT Socrates Lew RN documented as of this encounter Plan of Treatment Upcoming Encounters Date Type Department Care Team (Late st Contact Info) Description 12/04/2024 10:00 AM EDT Office Visit [facility] [address] [place] [address] Karol Jane MD [address] [facility] [address] [place] [address] documented as of this encounter Visit Diagnoses Not on filedocumented in this encounter Additional Health Concerns Assessment Noted Time A Body Mass Index follow-up plan has been documented for the patient 11/21/2024 8:58 AM EDT documented as of this encounter Care Teams Job Coach/Job Developer Relationship Specialty Start Date End Date Pcp, No [address] [place] [address] PCP - General Family Medicine 06/16/23 documented as of this encounter
--- OUTSIDE RECORDS SUMMARY | 2024-11-25 11:03 | XMS_ITS | Clinical Summary ---
Author Organization [facility] Address [address] [place] [address] Care Team Providers Care Chlorinator Name Role Phone Pcp, No Primary Care Provider Unavailabl e Allergies No known active allergies Medications acetaminophen (Tylenol) 500 MG tablet Take 1 tablet by mouth every 6 hours. 100 tablet 1 11/15/19 25 Active ondansetron ODT (Zofran-ODT) 4 MG disintegrating tablet Dissolve 1 tablet on the tongue every 6 hours as needed for nausea or vomiting. 10 tablet 1 11/15/19 25 Active methocarbamol (Robaxin) 500 MG tablet Take 1 tablet by mouth 4 times a day. 120 tablet 1 11/15/19 25 Active pantoprazole (Protonix) 40 MG EC tablet Take 1 tablet by mouth daily before breakfast. Do not crush, chew, or split. 30 tablet 2 11/22/19 25 Active ondansetron ODT (Zofran-ODT) 4 MG disintegrating tablet Dissolve 1 tablet on the tongue every 6 hours as needed for nausea or vomiting. 20 tablet 11/22/19 25 Active ketorolac (Toradol) 10 MG tablet Take 1 tablet (10 mg) by mouth every 6 (six) hours if needed for moderate pain. 20 tablet 06/16/19 24 025 Discontinu ed(Stop Taking at Discharge) magnesium oxide (Mag-Ox) 400 (240 Mg) MG tablet Take 1 tablet by mouth every 4 hours for 1 dose. 1 tablet 11/22/19 25 025 ondansetron (Zofran) 4 MG/2ML injection Infuse 2 mL into a venous catheter every 6 hours as needed for nausea or vomiting. 20 mL 11/22/19 25 025 Discontinu ed(Stop Taking at Discharge) Active Problems Problem Noted Date Diagnosed Date [...] that would be needed Recommend admission to extrusion former onc vs medicine EGS will continue to follow Endometrial cancer 11/10/2024 Assessment & Plan (11/11/2024 11:30 AM EDT): Line Helper Onc consultation Assessment & Plan (11/10/2024 1:52 PM EDT): Line Helper Onc consultation Metastasis to liver 11/10/2024 Metastasis [...] appear to be symptomatic or causing cholecystitis Resolved Problems Problem Noted Date Diagnosed Date Resolved Date Other cholelithiasis without obstruction 11/08/2024 11/10/2024 Encounters Date Type Department Care Team Description 11/19/2024 Travel 11/18/2024 Travel 11/17/2024 1:26 PM EDT - 11/21/2024 10:43 AM EDT Hospital Encounter P[facility] A Inpatient [facility] [address] [place] [address] Elisabeth Hernandez MD Miller, Rachel W, MD RUQ abdominal pain (Primary Dx); Endometrial cancer (CMS/HCC); Metastasis to liver (CMS/HCC); 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) Discharge Disposition: Home or Self Care 11/17/2024 Travel 11/14/2024 Travel 11/11/2024 Travel 11/09/2024 Travel 11/08/2024 11:13 AM EDT - 11/14/2024 8:50 PM EDT Hospital Encounter [facility] H Inpatient [address] [place] [address] Blaire Fuchs MD Houck, Jessica L, DO Tucker, Brian K, Morelia Irene MD Dietrich, Charles S, MD Miller, Rachel W, MD Metastasis to liver (CMS/HCC) (Primary Dx); Calculus of gallbladder without cholecystitis without obstruction Discharge Disposition: Home or Self Care 11/08/2024 Orders Only External Location [address] [place] [id number] Provider, External 11/08/2024 Orders Only External Location [address] [place] [id number] Provider, External 11/08/2024 Travel from Last 3 Months Family History Medical History Relation Name Comments [...] any time in the past 12 m [facility], were you homeless or living in a fci (including now)? No 11/18/2024 [facility] Utilities Answer Date Recorded In the [...] drink first t nicolas in the morning (EYE-CUTTER GAS) to steady your nerves or to get [...] Mass Index 38.09 11/17/2024 12:11 PM EDT Plan of Treatment Upcoming Encounters Date Type Department Care Team (Late st Contact Info) Description 12/04/2024 10:00 AM EDT Office Visit [facility] Gynecology [address] [place] [address] Karol Jane MD [address] [place] [address] Health Maintenance Due Date Last Done Comments [facility]-Depression Screening 1978 [facility]-Infant/Child/Adol SDOH Screenings 1978 [id number] Vaccine (#1) 1983 [facility]-DTaP,Tdap,and Td Vaccine s (1 - Tdap) 1997 [facility]-Hepatitis A Vaccines (1 of 2 - Risk 2-dose series) 1997 [facility]-Hepatitis B Vaccines (1 of 3 - 19+ 3-dose series) 1997 [facility]-Pneumococcal Vaccine: Pediatrics (0 to 5 Years) and At-Risk Patients (6 to 49 Years) (1 of 2 - PCV) 1997 [facility]-Zoster Vaccines (1 of 2) 1997 CT Colonography 2023 Colonoscopy 2023 FIT-DNA 2023 FIT 2023 FOBT 2023 Sigmoidoscopy 2023 [facility]-Colorectal Cancer Screening 2023 [facility]-Influenza Vaccine (#1) 2024 [facility]- SDOH Screenings 05/18/2025 [facility]-Adult SDOH Screenings 05/18/2025 11/18/2024 [facility]-Hepatitis C Screening Completed 2017, 11/06/2017 [facility]-HIV Screening Completed 11/08/2024, 06/16/2023, 12/16/2017 [facility]-Obesity Intervention Completed 025, 11/08/2024 HPV Vaccines Aged Out No longer eligi [...] on patient's age to complete this topic Medical Devices Implanted Type Area Flue Lining Dipper Device Identifier Shelf Expiration Date Model / Serial / Lot Vip Vascular Closure Device 6 Fr - [id number] Implanted:Qty: 1 on 11/18/2024 by Franko Nava MD at [facility] [id number] 07/29/2025 [id number] / / [id number] Procedures Procedure Name Priority Date/Time Associated Diagnosis Comments TRANSFUSE RED BLOOD CELLS Routine 11/21/2024 7:14 AM EDT PREPARE RBC Routine 11/21/2024 6:16 AM EDT PHOSPHORUS, PLASMA STAT Add-on 11/21/2024 3: 19 AM EDT MAGNESIUM, PLASMA Routine 11/21/2024 3:1 9 AM EDT IONIZED CALCIUM, SERUM Routine 3:19 AM EDT COMPREHENSIVE METABOLIC PANEL, PLASMA Routine 11/21/2024 3:19 AM EDT CBC W/O DIFFERENTIAL Routine 11/21/2024 3:19 AM EDT COMPREHENSIVE METABOLIC PANEL, PLASMA Routine 11/20/2024 12:42 PM EDT CBC W/O DIFFERENTIAL Routine 11/20/2024 12:42 PM EDT TRANSFUSE RED BLOOD CELLS Routine 11/20/2024 6:06 AM EDT PREPARE RBC Routine 11/20/2024 5:27 AM EDT PREPARE RBC Routine 11/20/2024 4:53 AM EDT MAGNESIUM, PLASMA Routine 11/20/2024 2:3 9 AM EDT IONIZED CALCIUM, SERUM Routine 2:39 AM EDT COMPREHENSIVE METABOLIC PANEL, PLASMA Routine 11/20/2024 2:39 AM EDT CBC W/O DIFFERENTIAL Routine 11/20/2024 2:39 AM EDT NM HEPATOBILIARY SCAN W PHARM CHALLENGE Routine 11/19/2024 4:19 PM EDT MAGNESIUM, PLASMA Routine 11/19/2024 4:1 1 AM EDT IONIZED CALCIUM, SERUM Routine 4:11 AM EDT COMPREHENSIVE METABOLIC PANEL, PLASMA Routine 11/19/2024 4:11 AM EDT CBC W/O DIFFERENTIAL Routine 11/19/2024 4:11 AM EDT SURGICAL PATHOLOGY EXAM Routine 11/18/2024 3:57 PM EDT US GUIDED NEEDLE BIOPSY LIVER Routine 11/18/2024 3:31 PM EDT Metastasis to liver (CMS/HCC) IR EMBOLIZATION TUMOR OR ISCHEMIA OR INFARCTION [...] HEMATOCRIT, BLOOD STAT 11/18/2024 5:54 AM EDT MAGNESIUM, PLASMA Routine 11/18/2024 4:3 6 AM EDT IONIZED CALCIUM, SERUM Routine 4:36 AM EDT COMPREHENSIVE METABOLIC PANEL, PLASMA Routine 11/18/2024 4:36 AM EDT CBC W/O DIFFERENTIAL Routine 11/18/2024 4:36 AM EDT US ABDOMEN RUQ STAT 11/17/2024 2:00 PM EDT APTT STAT 11/17/2024 1:25 PM EDT PROTHROMBIN TIME(PT) / INR STAT 11/17/2024 1:25 PM EDT LIPASE, PLASMA STAT 11/17/2024 1:25 PM EDT COMPREHENSIVE METABOLIC PANEL, PLASMA STAT 11/17/2024 1:25 PM EDT CBC WITH AUTO DIFFERENTIAL STAT 11/17/2024 1:25 PM EDT FIBRINOGEN,QUANTITATIV E (CLOTTABLE) Pending Discharge 11/14/2024 1:07 AM EDT APTT Pending Discharge 11/14/2024 1:07 AM EDT PROTHROMBIN TIME(PT) / INR Pending Discharge 11/14/2024 1:07 AM EDT PHOSPHORUS, PLASMA Pending Discharge 11/14/2024 1:07 AM EDT MAGNESIUM, PLASMA Pending Discharge 11/14/2024 1:07 AM EDT IONIZED CALCIUM, WHOLE BLOOD Pending Discharge 11/14/2024 1:07 AM EDT BASIC METABOLIC PANEL, PLASMA Pending Discharge 11/14/2024 1:07 AM EDT CBC W/O DIFFERENTIAL Pending Discharge 11/14/2024 1:07 AM EDT PHOSPHORUS, PLASMA Routine 11/13/2024 3: 01 AM EDT MAGNESIUM, PLASMA Routine 11/13/2024 3:0 1 AM EDT IONIZED CALCIUM, WHOLE BLOOD Routine 11/13/2024 3:01 AM EDT BASIC METABOLIC PANEL, PLASMA Routine 11/13/2024 3:01 AM EDT CBC W/O DIFFERENTIAL Routine 11/13/2024 3:01 AM EDT INSERT PERIPHERAL IV Routine 11/13/2024 2:59 AM EDT PHOSPHORUS, PLASMA Routine 11/12/2024 10:59 AM EDT MAGNESIUM, PLASMA Routine 11/12/2024 10:59 AM EDT IONIZED CALCIUM, WHOLE BLOOD Routine 11/12/2024 10:59 AM EDT BASIC METABOLIC PANEL, PLASMA Routine 11/12/2024 10:59 AM EDT CBC W/O DIFFERENTIAL Routine 11/12/2024 10:59 AM EDT COMPREHENSIVE GI PANEL BY PCR Routine 11/11/2024 8:01 PM EDT CLOSTRIDIODES (CLOSTRIDIUM) DIFFICILE,PCR Routine 11/11/2024 8:[address] CHEST WO IV CONTRAST Routine 11/11/2024 9:07 AM EDT SODIUM, URINE, RANDOM Routine 11/11/2024 3:34 AM EDT CREATININE, RANDOM URINE Routine 11/11/2024 3:34 AM EDT COMPREHENSIVE METABOLIC PANEL, PLASMA Routine 11/11/2024 3:32 AM EDT CBC W/O DIFFERENTIAL Routine 11/11/2024 3:32 AM EDT MAGNESIUM, PLASMA Routine 11/11/2024 3:3 2 AM EDT PHOSPHORUS, PLASMA Routine 11/11/2024 3: 32 AM EDT COMPREHENSIVE METABOLIC PANEL, PLASMA Routine 11/10/2024 10:30 AM EDT BASIC METABOLIC PANEL, PLASMA Routine 11/10/2024 5:49 AM EDT CBC WITH AUTO DIFFERENTIAL Routine 11/10/2024 5:49 AM EDT MAGNESIUM, PLASMA Routine 11/10/2024 5:4 9 AM EDT PHOSPHORUS, PLASMA Routine 11/10/2024 5: 49 AM EDT INSERT PERIPHERAL IV Routine 11/09/2024 5:[address] ABDOMEN PELVIS W IV CONTRAST STAT 11/09/2024 8:52 AM EDT POCT GLUCOSE METER UNSOLICITED RESULTS Routine 11/09/2024 7:12 AM EDT MAGNESIUM, PLASMA Routine 11/09/2024 2:0 4 AM EDT PHOSPHORUS, PLASMA Routine 11/09/2024 2: 04 AM EDT BASIC METABOLIC PANEL, PLASMA Routine 11/09/2024 2:04 AM EDT CBC W/O DIFFERENTIAL Routine 11/09/2024 2:04 AM EDT TROPONIN T, [...] ANTIBODY DIFFERENTIATION STAT 11/08/2024 1:12 PM EDT PROTHROMBIN TIME(PT) / INR STAT 11/08/2024 1:12 PM EDT CBC WITH AUTO DIFFERENTIAL STAT 11/08/2024 1:12 PM EDT N-TERMINAL PROBNP, PLASMA STAT 11/08/2024 1:12 PM EDT TROPONIN T, HIGH SENSITIVITY, 0 HOUR, PLASMA, REFLEX TO 2 HOUR STAT 11/08/2024 1:12 PM EDT COMPREHENSIVE METABOLIC PANEL, PLASMA STAT 11/08/2024 1:12 PM EDT ECG ADULT STAT 11/08/2024 11:25 AM EDT US OUTSIDE IMAGES 11/08/2024 7:0 0 AM EDT US OUTSIDE IMAGES 11/08/2024 7:0 0 AM EDT HEPATITIS C ANTIBODY - ED W/REFLEX TO HCV QUANT PCR Routine 12/16/2017 9:07 PM EDT from Last 3 Months or Most Recently Relevant to Health Maintenance Results * Transfuse RBC (11/21/2024 9:49 AM EDT) Only the most recent of3 resultswithin the time period is included. us Karol Jane MD BLOOD TRANSFUSION ORDERABLES Final Result * (ABNORMAL) IONIZED CALCIUM, SERUM (11/21/2024 3:19 AM EDT) Only the most recent of4 resultswithin the time period is included. Ionized Calcium, Serum 4.5(L) 4.6 - 5.3 mg/dL LAB HEMATOLOGY METHOD 11/21/2024 3:53 AM EDT [facility] Blood Venous blood specimen / Unknown Venipuncture / Unknown 11/21/2024 3:19 AM EDT 11/21/2024 3:27 AM EDT us Karol Jane MD LAB BLOOD ORDERABLES Final Re sult [facility] [address] [place] [address] * (ABNORMAL) CBC W/O Differential (11/21/2024 3:19 AM EDT) Only the most recent of10 resultswithin the time period is included. Pathologist [facility] WBC Count 12.55(H) 3.70 - 10.30 10*3/uL LAB HEMATOLOGY METHOD 11/21/2024 3:35 AM EDT [facility] RBC Count 2.70(L) 3.90 - 5.20 10*6/uL LAB HEMATOLOGY METHOD 11/21/2024 3:35 AM EDT [facility] HGB 7.3(L) 11.2 - 15.7 g/dL LAB HEMATOLOGY METHOD 11/21/2024 3:35 AM EDT [facility] HCT 22.1(L) 34.0 - 45.0 % LAB HEMATOLOGY METHOD 11/21/2024 3:35 AM EDT [facility] Platelet Count 236 155 - 369 10*3/uL LAB HEMATOLOGY METHOD 11/21/2024 3:35 AM EDT [facility] MCV 82 79 - 98 fL LAB HEMATOLOGY METHOD 11/21/2024 3:35 AM EDT [facility] MCH 27.0 26.0 - 32.0 pg LAB HEMATOLOGY METHOD 11/21/2024 3:35 AM EDT [facility] MCHC 33.0 30.7 - 35.5 g/dL LAB HEMATOLOGY METHOD 11/21/2024 3:35 AM EDT [facility] RDW 16.0(H) 11.5 - 14.5 % LAB HEMATOLOGY METHOD 11/21/2024 3:35 AM EDT [facility] MPV 9.7 8.8 - 12.5 fL LAB HEMATOLOGY METHOD 11/21/2024 3:35 AM EDT [facility] nRBC 0.0 <=0.0 per 100 WBCs LAB HEMATOLOGY METHOD 11/21/2024 3:35 AM EDT [facility] Blood Venous blood specimen / Unknown Venipuncture / Unknown 11/21/2024 3:19 AM EDT 11/21/2024 3:28 AM EDT Karol Jane MD LAB BLOOD ORDERABLES Final Re sult Performing Organization Address City/[facility]/ZIP Co de Phone Number [facility] [address] [place] [address] * Phosphorus, Plasma (11/21/2024 3:19 AM EDT) Only the most recent of7 resultswithin the time period is included. Phosphorus, Plasma 3.1 2.5 - 4.5 mg/dL 11/21/2024 5:27 AM EDT [facility] Blood Venous blood specimen / Unknown Venipuncture / Unknown 11/21/2024 3:19 AM EDT 11/21/2024 3:27 AM EDT us Karol Jane MD LAB BLOOD ORDERABLES Final Re sult Performing Organization Address City/[facility]/ZIP Co de Phone Number [facility] [address] [place] [address] * (ABNORMAL) Magnesium (11/21/2024 3:19 AM EDT) Only the most recent of10 resultswithin the time period is included. Magnesium, Plasma 1.6(L) 1.9 - 2.4 mg/dL 11/21/2024 3:58 AM EDT [facility] Blood Venous blood specimen / Unknown Venipuncture / Unknown 11/21/2024 3:19 AM EDT 11/21/2024 3:27 AM EDT us Karol Jane MD LAB BLOOD ORDERABLES Final Re sult [facility] [address] [place] [address] * (ABNORMAL) Comprehensive metabolic panel (11/21/2024 3:19 AM EDT) Only the most recent of9 resultswithin the time period is included. Glucose, Plasma 116(H) 74 - 99 mg/dL 11/21/2024 3:58 AM EDT [facility] BUN, Plasma 11 7 - 21 mg/dL 11/21/2024 3:58 AM EDT [facility] Creatinine, Plasma 0.77 0.60 - 1.10 mg/dL 11/21/2024 3:58 AM EDT [facility] BUN/Creatinine Ratio 14 11/21/2024 3:58 AM EDT [facility] Sodium, Plasma 137 136 - 145 mmol/L 11/21/2024 3:58 AM EDT [facility] Potassium, Plasma 3.4(L) 3.6 - 4.9 mmol/L 11/21/2024 3:58 AM EDT [facility] Chloride, Plasma 103 97 - 107 mmol/L 11/21/2024 3:58 AM EDT [facility] CO2, Plasma 21(L) 22 - 29 mmol/L 11/21/2024 3:58 AM EDT [facility] Anion Gap 13 6 - 16 mmol/L 11/21/2024 3:58 AM EDT [facility] Total Calcium, Plasma 7.9(L) 8.9 - 10.2 mg/dL 11/21/2024 3:58 AM EDT [facility] Total Protein 5.7(L) 6.3 - 7.9 g/dL 11/21/2024 3:58 AM EDT [facility] Albumin, Plasma 2.4(L) 3.5 - 5.2 g/dL 11/21/2024 3:58 AM EDT [facility] AST, Plasma 188(H) 10 - 35 U/L 11/21/2024 3:58 AM EDT [facility] ALT, Plasma 167(H) 10 - 35 U/L 11/21/2024 3:58 AM EDT [facility] Alkaline Phosphatase, Plasma 505(H) 35 - 104 U/L 11/21/2024 3:58 AM EDT [facility] Total Bilirubin, Plasma 1.0 0.2 - 1.1 mg/dL 11/21/2024 3:58 AM EDT [facility] eGFRcr 96.5 mL/min/1.7 3m*2 11/21/2024 3:58 AM EDT [facility] Comment:Reported eGFRcr in m L/min/1.73m2 is based the CKD-EPI 2020 equation that does not use a race coefficient. Blood Venous blood specimen / Unknown Venipuncture / Unknown 11/21/2024 3:19 AM EDT 11/21/2024 3:27 AM EDT Karol Jane MD LAB BLOOD ORDERABLES Final Re sult Performing Organization Address City/[facility]/ZIP Co de Phone Number [facility] [address] [place] [address] * Prepare Leukocyte Reduced RBC: 1 Units (11/20/2024 5:27 AM EDT) Only the most recent of3 resultswithin the time period is included. Product Code P3582N15 CH BLOO D BANK Dispense Status Transfused BLOOD BANK Blood Expiration Date [id number] BLOOD BANK Unit Number [id number] CH B LOOD BANK Product Blood Type 5100 BLOOD BANK Blood Type O+ BLOOD BANK Crossmatch Compatible BLOOD BANK Other Karol Jane MD BLOOD BANK PRODUCT ORDERABLES Final Result Performing Organization Address 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 At 58 [...] Mcdonald MD on 11/19/2024 5:29 PM us Karol Jane MD IMG NM PROCEDURES Final Resul t * Surgical Pathology Exam (11/18/2024 3:57 PM EDT) Case Report Surgical Pathology Case: [id number] Authorizing Provider: Franko Nava MD Collected: 11/18/2024 4247 Ordering Location: [facility] Emergency Department Received: 11/18/2024 1620 Pathologist: Geovanny Gomes DO Specimen: Liver 5:03 PM EDT [facility] Final Diagnosis LIVER, BIOPSY: - POSITIVE FOR METASTATIC CARCINOMA (SEE COMMENT). 5:03 PM EDT [facility] at 1703 EDT Comment The [...] the patient's prior high grade endometrioid adenocarcinoma. 5:03 PM EDT [facility] Clinical Information mets to the liver 5:03 PM EDT [facility] Special and Immunohistochemical Stains IHC: A1-2 CK7: Positive in tumor cells. A1-3 PAX8: Positive in tumor cells. A1-4 ER Non-Quantitative: Positive in tumor cells. All controls show appropriate reactivity. All immunohistochemist ry, in situ hybridization, and histochemical tests were developed by and are performed at the [facility], [address] [place] [address]. All tests reported here, except those addressing [...] negativity on decalcified specimens. 5:03 PM EDT [facility] Gross Description A. LIVER Received in formalin labeled l iver , are multiple red-rosales soft tissue cores measuring from 0.3 cm to 1.5 cm in length and up to 0.1 cm in diameter. Entirely submitted in cassette A1. Cold Time: 0 Ro C Esvin 5:03 PM EDT [facility] Intradepartmental Consultation with Agreement Dr. Fuentes 5:03 PM EDT [facility] Note: A resident was involved in the service. I attest I examined the relevant preparations for the specimens and confirmed the diagnosis or interpretation. 5:03 PM EDT [facility] Tissue Liver structure / Unknown Non-blood Collection / Unknown 11/18/2024 3:57 PM EDT 11/18/2024 4:20 PM EDT us Franko Nava MD LAB PATHOLOGY ORDERABLES Fin al Result [facility] [address] [place] [address] * IR Embolization Tumor or Ischemia or [...] concern for intratumoral hemorrhage. Patient presents to [facility] for bland embolization of tumor. Additionally, rebiopsy of liver mass is planned due to possible progression. TECHNIQUE: Maintenance Representative: Franko Nava MD Secondary Machine Woodworking Sander: Luis Miguel Estes M.D. Rad Dose: [id number] [...] 5 F vascular sheath. Using a 5 Grenadian contra 2 catheter, the celiac axis was [...] concern for intratumoral hemorrhage. Patient presents to [facility] embolization of tumor. Additionally, rebiopsy of liver mass isplanned due to possible progression. TECHNIQUE: Maintenance Representative: Franko Nava MD Secondary Machine Woodworking Sander: Luis Miguel Estes M.D. Rad Dose: 1674 [...] 5 F vascular sheath. Using a 5 Grenadian contra 2catheter, the celiac axis was catheterized. [...] IMG IR PROCEDURES Final Resu lt * US Guided Needle Biopsy Liver (11/18/2024 [...] concern for intratumoral hemorrhage. Patient presents to [facility] for bland embolization of tumor. Additionally, rebiopsy of liver mass is planned due to possible progression. TECHNIQUE: Maintenance Representative: Franko Nava MD Secondary Machine Woodworking Sander: Luis Miguel Estes M.D. Rad Dose: 1674 [...] 5 F vascular sheath. Using a 5 Grenadian contra 2 catheter, the celiac axis was [...] concern for intratumoral hemorrhage. Patient presents to [facility] embolization of tumor. Additionally, rebiopsy of liver mass isplanned due to possible progression. TECHNIQUE: Maintenance Representative: Franko Nava MD Secondary Machine Woodworking Sander: Luis Miguel Estes M.D. Rad Dose: 1674 [...] 1% lidocaine. Lidocaine was alsoinfiltrated in the chaot - arterial soft tissues. A 5 mm [...] 5 F vascular sheath. Using a 5 Grenadian contra 2catheter, the celiac axis was catheterized. [...] IMG US PROCEDURES Final Resu lt * Fine needle aspiration - Core Biopsy (11/18/2024 2:55 PM EDT) Case Report Cytology Case: [id number] Authorizing Provider: Franko Nava MD Collected: 11/18/2024 1455 Ordering Location: [facility] Emergency Department Received: 11/18/2024 1520 Specimen: Liver, LIVER, CT GUIDED CORE BIOPSY 3:41 PM EDT [facility] Final Diagnosis A. LIVER, CT GUIDED CORE BIOPSY: - POSITIVE FOR MALIGNANCY, METASTATIC CARCINOMA CONSISTENT WITH PREVIOUSLY DIAGNOSED ENDOMETRIAL CARCINOMA, SEE COMMENT 3:41 PM EDT [facility] at 1541 EDT Comment History of metastatic [...] not identical to the previous surgical specimen ([id number]), the staining pattern noted below is identical to the previous tumor. 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 Material is present in the cell block for ancillary testing as clinically indicated. 5 3:41 PM EDT [facility] Special and Immunohistochemical Stains IHC: A1-1 CK-AE1/AE3 Positive A1-2 PAX8 Positive A1-3 ER Non-Quantitative Positive, moderate intensity in the majority of the cells A1-4 WI Non-Quantitative Rare positive cells, weak intensity A1-5 Androgen Receptor Positive, variable All controls show appropriate reactivity. All immunohistochemis try, in situ hybridization, and histochemical tests were developed by and are performed at the [facility], [address] [place] [address]. All tests reported here, except those addressing [...] on decalcified specimens. 5 3:41 PM EDT [facility] Intradepartmental Consultation with Agreement Dr. Fuentes 5 3:41 PM EDT [facility] Immediate Evaluation Core biopsy performed by: Dr. Nava Number of sticks: 5 This service has been rendered in part by a resident. A pathologist has personally reviewed the slides/tissue and has rendered and is responsible for diagnosis for the diagnosis that appears on the report. 5 3:41 PM EDT [facility] Clinical History metastesis to liver 5 3:41 PM EDT [facility] Procedure Type US 5 3:41 PM EDT [facility] Size/Description of Lesion liver tumor 5 3:41 PM EDT [facility] Cancer History Yes 5 3:41 PM EDT [facility] Gross Description A. LIVER, CT [...] fixation. Cold Time: 13m 3:41 PM EDT [facility] Note: A resident was involved in the service. I attest I examined the relevant preparations for the specimens and confirmed the diagnosis or interpretation. 3:41 PM EDT [facility] Clinical Information No Dx found. 3:41 PM EDT [facility] Fine Needle Aspirate Liver structure / Unknown Non-blood Collection / Unknown 11/18/2024 2:55 PM EDT 11/18/2024 3:20 PM EDT Franko Nava MD LAB CYTOLOGY ORDERABLES Sonali l Result [facility] [address] [place] [address] * Type and screen (11/18/2024 9:33 AM EDT) ABO/Rh O Positive 11/18/2024 8:48 AM EDT BLOOD [facility]ANK Antibody Screen Negative 11/18/2024 8:48 AM EDT [facility]LO[facility]ANK Specimen Expiration 11/21/2024 23:59 11/18/2024 8:48 AM EDT [facility] Blood Venous blood specimen / Unknown Venipuncture / Unknown 11/18/2024 9:33 AM EDT 11/18/2024 9:41 AM EDT Karol Jane MD LAB BLOOD BANK TEST ORDERABLE S Final Result Performing Organization Address City/[facility]/ZIP Co de Phone Number BLOOD BANK [address] [place] [address], * PERIPHERAL IV (SMARTFORM LINK) (11/18/2024 7:57 AM EDT) Only the most recent of3 resultswithin the time period is included. Narrative Lupe Hernández RN - 11/18/2024 7:57 [...] Transparent semipermeable dressing Education provided to: Patient us Kareem Gudiry MD IV THERAPY ORDERABLES Fi nal Result * (ABNORMAL) Hemoglobin and Hematocrit, Blood (11/18/2024 5:54 AM EDT) HGB 6.9(L) 11.2 - 15.7 g/dL LAB HEMATOLOGY METHOD 11/18/2024 6:06 AM EDT [facility] HCT 21.3(L) 34.0 - 45.0 % LAB HEMATOLOGY METHOD 11/18/2024 6:06 AM EDT [facility] Blood Venous blood specimen / Unknown Venipuncture / Unknown 11/18/2024 5:54 AM EDT 11/18/2024 6:04 AM EDT us Karol Jane MD LAB BLOOD ORDERABLES Final Re sult [facility] [address] [place] [address] * US Abdomen RUQ (11/17/2024 2:00 PM [...] signing this report, I, the attending physician, ridge I have personally reviewed the images/data for the aboveexamination(s) and agree with the final edited report. Drafted by Ras Gipson MD on 11/17/2024 2:27 PM Final report signed by Orion Garcia MD on 11/17/2024 2:59 PM Kareem Guidry MD IMG US PROCEDURES Final Result * APTT (11/17/2024 1:25 PM EDT) Only the most recent of2 resultswithin the time period is included. aPTT 26 25 - 35 sec 11/17/2024 1:44 PM EDT [facility] Blood Venous blood specimen / Unknown Venipuncture / Unknown 11/17/2024 1:25 PM EDT 11/17/2024 1:27 PM EDT Kareem Guidry MD LAB BLOOD ORDERABLES Fin al Result [facility] [address] [place] [address] * (ABNORMAL) PT-INR (11/17/2024 1:25 PM EDT) Only the most recent of3 resultswithin the time period is included. Prothrombin Time 15.4(H) 12.0 - 14.3 sec 11/17/2024 1:43 PM EDT [facility] INR 1.2(H) 0.9 - 1.1 11/17/2024 1:43 PM EDT [facility] Blood Venous blood specimen / Unknown Venipuncture / Unknown 11/17/2024 1:25 PM EDT 11/17/2024 1:27 PM EDT Narrative [facility] - 11/17/2024 1:43 PM EDT OPTIMAL INR RANGES FOR PATIENT ON ORAL ANTICOAGULANT THERAPY Prevention of venous thromboembolism INR 2.0 to 3.0 In patients with heart disease: Atrial fibrillation INR 2.0 to 3.0 Valvular heart disease INR 2.0 to 3.0 Tissue heart valves INR 2.0 to 3.0 Mechanical prosthetic valves INR 2.5 to 3.5 Prevention of recurrent PA INR 2.5 to 3.5 us Kareem Guidry MD LAB BLOOD ORDERABLES [facility] al Result [facility] [address] [place] [address] * (ABNORMAL) CBC w/diff (11/17/2024 1:25 PM EDT) Only the most recent of3 resultswithin the time period is included. WBC Count 12.34(H) 3.70 - 10.30 10*3/uL LAB HEMATOLOGY METHOD 11/17/2024 1:30 PM EDT [facility] RBC Count 3.19(L) 3.90 - 5.20 10*6/uL LAB HEMATOLOGY METHOD 11/17/2024 1:30 PM EDT [facility] HGB 8.4(L) 11.2 - 15.7 g/dL LAB HEMATOLOGY METHOD 11/17/2024 1:30 PM EDT [facility] HCT 27.1(L) 34.0 - 45.0 % LAB HEMATOLOGY METHOD 11/17/2024 1:30 PM EDT [facility] Platelet Count 308 155 - 369 10*3/uL LAB HEMATOLOGY METHOD 11/17/2024 1:30 PM EDT [facility] MCV 85 79 - 98 fL LAB HEMATOLOGY METHOD 11/17/2024 1:30 PM EDT [facility] MCH 26.3 26.0 - 32.0 pg LAB HEMATOLOGY METHOD 11/17/2024 1:30 PM EDT [facility] MCHC 31.0 30.7 - 35.5 g/dL LAB HEMATOLOGY METHOD 11/17/2024 1:30 PM EDT [facility] RDW 16.7(H) 11.5 - 14.5 % LAB HEMATOLOGY METHOD 11/17/2024 1:30 PM EDT [facility] MPV 9.6 8.8 - 12.5 fL LAB HEMATOLOGY METHOD 11/17/2024 1:30 PM EDT [facility] nRBC 0.0 <=0.0 per 100 WBCs LAB HEMATOLOGY METHOD 11/17/2024 1:30 PM EDT [facility] Differential Type Automated LAB HEMATOLOGY METHOD 11/17/2024 1:30 PM EDT [facility] Neutrophils % 80 % LAB HEMATOLOGY METHOD 11/17/2024 1:30 PM EDT [facility] Lymphocytes % 11 % LAB HEMATOLOGY METHOD 11/17/2024 1:30 PM EDT [facility] Monocytes % 5 % LAB HEMATOLOGY METHOD 11/17/2024 1:30 PM EDT [facility] Eosinophils % 1 % LAB HEMATOLOGY METHOD 11/17/2024 1:30 PM EDT [facility] Basophils % 1 % LAB HEMATOLOGY METHOD 11/17/2024 1:30 PM EDT [facility] Immature Granulocytes % 2 % LAB HEMATOLOGY METHOD 11/17/2024 1:30 PM EDT [facility] Neutrophils Absolute 10.04(H) 1.60 - 6.10 10*3/uL LAB HEMATOLOGY METHOD 11/17/2024 1:30 PM EDT [facility] Lymphocytes Absolute 1.31 1.20 - 3.90 10*3/uL LAB HEMATOLOGY METHOD 11/17/2024 1:30 PM EDT [facility] Monocytes Absolute 0.62 0.30 - 0.90 10*3/uL LAB HEMATOLOGY METHOD 11/17/2024 1:30 PM EDT [facility] Eosinophils Absolute 0.08 0.00 - 0.50 10*3/uL LAB HEMATOLOGY METHOD 11/17/2024 1:30 PM EDT [facility] Basophils Absolute 0.06 0.00 - 0.10 10*3/uL LAB HEMATOLOGY METHOD 11/17/2024 1:30 PM EDT [facility] Immature Granulocytes Absolute 0.23(H) 0.00 - 0.06 10*3/uL LAB HEMATOLOGY METHOD 11/17/2024 1:30 PM EDT [facility] Blood Venous blood specimen / Unknown Venipuncture / Unknown 11/17/2024 1:25 PM EDT 11/17/2024 1:27 PM EDT Narrative [facility] - 11/17/2024 1:30 PM EDT Therapeutic decision making should be based on absolute values, rather than percentages. Kareem Guidry MD LAB BLOOD ORDERABLES Fin al Result Performing Organization Address City/[facility]/ZIP Co de Phone Number [facility] [address] [place] [address] * (ABNORMAL) Lipase (11/17/2024 1:25 PM EDT) Lipase, Plasma 14(L) 19 - 63 U/L 11/17/2024 1:50 PM EDT [facility] Blood Venous blood specimen / Unknown Venipuncture / Unknown 11/17/2024 1:25 PM EDT 11/17/2024 1:27 PM EDT Kareem Guidry MD LAB BLOOD ORDERABLES Fin al Result Performing Organization Address [facility] Co de Phone Number [facility] [address] [place] [address] * (ABNORMAL) Ionized calcium, whole blood (11/14/2024 1:07 AM EDT) Only the most recent of3 resultswithin the time period is included. [facility] Ionized Calcium, Whole Blood 4.4(L) 4.6 - 5.1 mg/dL LAB HEMATOLOGY METHOD 11/14/2024 1:58 AM EDT [facility] Blood Venous blood specimen / Unknown Venipuncture / Unknown 11/14/2024 1:07 AM EDT 11/14/2024 1:50 AM EDT Korey Rolle MD LAB BLOOD ORDERABLES Final Result Performing Organization Address City/[facility]/ZIP Co de Phone Number [facility] [address] [place] [address] * (ABNORMAL) Fibrinogen (11/14/2024 1:07 AM EDT) Fibrinogen, Quantitative (Clottable) 512(H) 208 - 459 mg/dL LAB COAGULATION METHOD 11/14/2024 2:09 AM EDT [facility] Blood Venous blood specimen / Unknown Venipuncture / Unknown 11/14/2024 1:07 AM EDT 11/14/2024 1:48 AM EDT us Karol Jane MD LAB BLOOD ORDERABLES Final Re sult [facility] [address] [place] [address] * (ABNORMAL) Basic metabolic panel (11/14/2024 1:07 AM EDT) Only the most recent of5 resultswithin the time period is included. Glucose, Plasma 85 74 - 99 mg/dL [...] Final Result [facility] [address] [place] [address] * Comprehensive GI Panel by PCR (11/11/2024 [...] PM EDT 11/11/2024 8:13 PM EDT Narrative [facility] - 11/12/2024 5:52 AM EDT This [...] difficile by PCR assay if clinically indicated. us Korey Rolle MD LAB MICROBIOLOGY - GENERAL ORDERABLES Final Result Performing Organization Address [facility]/ZIP Co de Phone Number [facility] [address] [place] [address] * Clostridiodes (Clostridium) difficile PCR (11/11/2024 8:01 PM EDT) C difficile PCR toxin B gene DNA Result Not Detected Not Detected 11/11/2024 9:22 PM EDT [facility] Stool Rectum structure / Unknown Non-blood Collection / Unknown 11/11/2024 8:01 PM EDT 11/11/2024 8:13 PM EDT Narrative [facility] - 11/11/2024 9:22 PM EDT [...] GENERAL ORDERABLES Final Result Performing Organization Address [facility] [place] [place] [address] * CT Chest wo IV Contrast (11/11/2024 [...] MD on 11/11/2024 10:17 AM Jennifer Capps DOCUMENT PROCESSOR IMG CT PROCEDURES Final R esult * Sodium, urine, random (11/11/2024 3:34 AM EDT) Sodium, Urine 76 mmol/L 11/11/2024 4:13 AM EDT [facility] Urine Urine specimen obtained by clean catch procedure / Unknown Non-blood Collection / Unknown 11/11/2024 3:34 AM EDT 11/11/2024 3:43 AM EDT Result [facility] Morelia Galvez MD LAB URINE ORDERABLES Final Result Performing Organization Address [facility] Co de Phone Number [facility] [address] [place] [address] * Creatinine, urine, random (11/11/2024 3:34 AM EDT) Creatinine, Urine 105 mg/dL 11/11/2024 4:13 AM EDT [facility] Urine Urine specimen obtained by clean catch procedure / Unknown Non-blood Collection / Unknown 11/11/2024 3:34 AM EDT 11/11/2024 3:43 AM EDT Morelia Galvez MD LAB URINE ORDERABLES Final Result Performing Organization Address City/[facility]/ZIP Co de Phone Number [facility] [address] [place] [address] * CT Abdomen Pelvis w IV Contrast [...] (series 3, image 74 and series 5, [id number]) , previously measured 9.0 x 6.1 x [...] - 99 mg/dL 11/09/2024 7:13 AM EDT [facility] Comment:Accuracy of a glucos e result [...] for testing. Comment 11/09/2024 7:13 AM EDT [facility] Machine Woodworking Sander ID Justine Singh 11/09/2024 7:13 AM EDT [facility] Device ID [id number] 11/09/2024 7:13 AM EDT [facility] Specimen Type POC Capillary 11/09/2024 7:13 AM EDT [facility] Blood Capillary blood specimen / Unknown 11/09/2024 7:12 AM EDT 11/09/2024 7:13 AM EDT us Morelia Galvez MD LAB POINT OF CARE TEST DOCKED DEVICE UNSOLICITED RESULTS Final Result [facility] [address] [place] [address] * (ABNORMAL) Troponin T, High Sensitivity, 2 [...] 3:17 PM EDT 11/08/2024 3:24 PM EDT Blaire Fuchs MD LAB BLOOD ORDERABLES Final R esult Performing Organization Address [facility] [place] [address] * Heparin level (11/08/2024 1:57 PM EDT) Anti Xa Level Unfractionated Heparin <0.11 <1.00 IU/mL LAB COAGULATION METHOD 11/08/2024 2:26 PM EDT [facility] Blood Venous blood specimen / Unknown Venipuncture / Unknown 11/08/2024 1:57 PM EDT 11/08/2024 2:07 PM EDT Narrative [facility] - 11/08/2024 2:26 PM EDT Therapeutic Range: UFH Full Dose and ACS/PA protocols*: 0.30 - 0.70 IU/mL UFH Low Dose protocol*: 0.25 - 0.50 IU/mL UFH prophylaxis: Not established us Blaire Fuchs MD LAB BLOOD ORDERABLES Final R esult Performing Organization Address City/[facility] [place] [address] * US Abdomen Focused Region GB, Bile [...] Chung MD on 11/08/2024 3:00 PM us Blaire Fuchs MD IMG US PROCEDURES Final Resu lt * ED HIV 1/2 Antibody/Antigen Screen w/Reflex to HIV 1/2 Differentiation (11/08/2024 1:12 PM EDT) [facility] HIV 1 & 2 Antibody/Antigen Screen Non Reactive Non Reactive 11/08/2024 2:06 PM EDT [facility] Comment:Screening for HIV 1 & 2 antibodies, and P24 antigen is NONREACTIVE. No confirmatory testing is required. Blood Venous blood specimen / Unknown Venipuncture / Unknown 11/08/2024 1:12 PM EDT 11/08/2024 1:24 PM EDT us Blaire Fuchs MD LAB BLOOD ORDERABLES Final R esult Performing Organization Address [facility]/ZIP Co de Phone Number [facility] [address] [place] [address] * (ABNORMAL) Troponin now and 120 min (11/08/2024 1:12 PM EDT) [facility] Troponin T, High Sensitivity, 0 Hour 14(H) <14 ng/L 11/08/2024 1:55 PM EDT [facility] Blood Venous blood specimen / Unknown Venipuncture / Unknown 11/08/2024 1:12 PM EDT 11/08/2024 1:25 PM EDT us Blaire Fuchs MD LAB BLOOD ORDERABLES Final R esult Performing Organization Address [facility] Co de Phone Number [facility] [address] [place] [address] * (ABNORMAL) BNP (11/08/2024 1:12 PM EDT) [facility] N-Terminal, PROBNP, Plasma 523(H) 0 - 449 pg/mL 11/08/2024 1:55 PM EDT [facility] Blood Venous blood specimen / Unknown Venipuncture / Unknown 11/08/2024 1:12 PM EDT 11/08/2024 1:25 PM EDT us Blaire Fuchs MD LAB BLOOD ORDERABLES Final R esult Performing Organization Address City/[facility] Co de Phone Number [facility] [address] [place] [address] * EKG now - STAT (adult) (11/08/2024 11:25 AM EDT) EKG DIAGNOSIS CLASS Borderline Abnormal MUSE ECG Ventricular Rate 94 BPM MUSE ECG Atrial Rate 94 BPM MUSE ECG WI Interval 128 ms MUSE ECG QRSD Interval 100 ms MUSE ECG QT Interval 364 ms MUSE ECG QTC Interval 455 ms MUSE ECG P Avon 65 degrees MUSE ECG R Avon 11 degrees MUSE ECG T Wave [place]on 8 degrees MUSE ECG Diagnosis Normal sinus rhythm MUSE ECG Diagnosis RSR' V1, is likely a normal variant MUSE ECG Diagnosis Borderline ECG MUSE ECG Diagnosis MUSE ECG Diagnosis Confirmed by Yovani Liu ([id number]) on 11/09/2024 9:56:32 AM MUSE ECG 11/08/2024 11:2 5 AM EDT 11/09/2024 9:56 AM EDT us Blaire Fuchs MD ECG ORDERABLES Final Result MUSE ECG * US OUTSIDE IMAGES (11/08/2024 7:00 AM EDT) Only the most recent of2 resultswithin the time period is included. Anatomical Region Laterality Modality Ultrasound 11/08/2024 7:00 AM EDT us External Provider IMG US PROCEDURES Final Result * [place] Hepatitis C Antibody (12/16/2017 9:07 PM EDT) [place] Hepatitis C Ab BEING REPEATED TO CONFIRM SUNQUEST 12/16/2017 9:07 PM EDT 12/16/2017 9:17 PM EDT us Emmanuelle Thomason MD LAB BLOOD ORDERABLES Final Resul t SUNQUEST from Last 3 Months or Most Recently Relevant to Health Maintenance Insurance [employer] [place] Advance Directives * Full Code (Latest Code Status on File) Date Activated Date Inactivated Comments 11/17/2024 5:31 PM 11/21/2024 12:44 PM Question Answer Comments I have reviewed the capacity from the link above and, if needed, have updated to appropriate status: Yes * Full Code Date Activated Date Inactivated Comments 11/08/2024 6:52 PM 11/14/2024 10:55 PM Question Answer Comments I have reviewed the capacity from the link above and, if needed, have updated to appropriate status: Yes Care Teams Chlorinator Relationship Specialty Start Date End Date Pcp, Saloni [address] [place] [address] PCP - General Family Medicine 06/16/23
--- OUTSIDE RECORDS SUMMARY | 2024-11-25 11:03 | XMS_ITS | Encounter Summary ---
Author Organization [facility] Address [address] [place] [address] Care Team Providers Care Manager Administrative Services Name Role Phone Pcp, No Primary Care Provider Unavailabl e Encounter Details Date Type Department Care Team (Latest Contact Info) Description 11/17/2024 Travel Social History Tobacco Use Types Packs/Day [...] any time in the past 12 m [facility], were you homeless or living in a prison (including now)? No 11/18/2024 [facility] Utilities Answer Date Recorded In [...] drink first t nicolas in the morning ([employer]) to steady your nerves or to get [...] Date of Assessment Author No Risk Indicated 11/17/2024 2:15 PM EDT Nicole Lenz RN * Question Answer Date of Assessment Author 1. Wish to be (Past 1 Month) No 025 2:15 PM EDT Caleb Lenz RN 2. Non-Specific Active Suici sierra Thoughts (Past 1 Month) No 11/17/2024 2:15 PM EDT Caleb Lenz, RN 6. Suicidal Behavior (Lifetime) No 2:15 PM EDT Caleb Lenz, RN documented as of this encounter Plan of Treatment Upcoming Encounters Date Type Department Care Team (Late st Contact Info) Description 12/04/2024 10:00 AM EDT Office Visit [facility] [address] [place] [address] Karol Jane MD [address] [facility] [address] [place] [address] documented as of this encounter Visit Diagnoses Not on filedocumented in this encounter Additional Health Concerns Assessment Noted Time A Body Mass Index follow-up plan has been documented for the patient 11/21/2024 8:58 AM EDT documented as of this encounter Care Teams Manager Administrative Services Relationship Specialty Start Date End Date Pcp, No [address] [place] [address] PCP - General Family Medicine 06/16/23 documented as of this encounter
--- OUTSIDE RECORDS SUMMARY | 2024-11-25 11:03 | XMS_ITS | Encounter Summary ---
Author Organization [facility] Address [address] [place] [address] Care Team Providers Care Travel Manager Name Role Phone Pcp, No Primary Care Provider Unavailabl e Encounter Details Date Type Department Care Team (Late st Contact Info) Description 11/08/2024 Orders Only External Location [address] [place] [address] Provider, External Social History Tobacco Use Types [...] any time in the past 12 m [facility], were you homeless or living in a intermediate (including now)? No 11/11/2024 [facility] Utilities Answer Date Recorded In the [...] Gynecology [address] [place] [address] Karol Jane MD [address] [place] [address] [place] [address] documented as of this encounter Procedures Procedure [...] documented as of this encounter Care Teams Travel Manager Relationship Specialty Start Date End Date P[place], [place] [address] PCP - General Family Medicine 06/16/23 documented as of this encounter
[2024-11-25 11:25] LABS: Alanine Aminotransferase 44 U/L (12-78); Albumin Level 2.9 g/dl (3.5-5.0); Albumin/Globulin Ratio 0.9 (1.1-1.8); Alkaline Phosphatase 436 U/L (38-126); Anion Gap 9.3 mEq/L (5-15); Aspartate Amino Transferase 31 U/L (14-36); Bilirubin,Total 0.8 mg/dl (0.2-1.3); Blood Urea Nitrogen 8 mg/dl (7-17); Calcium 8.4 mg/dl (8.4-10.2); Carbon Dioxide 26 mmol/L (22.0-30.0); Chloride 107 mmol/L (98-107); Creatinine,Serum 0.60 mg/dl (0.52-1.04); Estimated Glomerular Filt Rate 108 ml/min (>60); GFR (African American) 130 ML/MIN (>60); Globulin 3.3 g/dL (1.3-3.2); Glucose 90 mg/dl (74-100); Potassium 3.3 mmoL/L (3.5-5.1); Sodium 139 mmol/L (136-145); Total Protein,Serum 6.2 g/dl (6.3-8.2)
== END 2024-11-25 23:59 | disposition home or self-care (01) ==
LOC: LAB 10:34
PROVIDERS: PCP Internal Medicine; Visit Provider Internal Medicine Medical Oncology
DX: C55 Malignant neoplasm of uterus, part unspecified (principal)
CPT/HCPCS: 36415; 80053; 85025

== ENCOUNTER 2024-12-23 08:45 | Outpatient (CLI) | payer MEDICAID, SELFPAY ==
--- OUTSIDE RECORDS SUMMARY | 2024-11-08 11:13 | XMS_ITS | Encounter Summary ---
Author Organization [facility] Address [address] [place] [address] Care Team Providers Care Prepress Proofer Name Role Phone Pcp, No Primary Care Provider Unavailabl e Reason for Referral * Imaging (Routine) - Closed Specialty Diagnoses / Procedures Referred By Contac t Referred To Contact Radiology Diagnoses Metastasis to liver Procedures US Guided Needle Biopsy Liver CT Guided Biopsy Liver Franko Nava MD [address] [place] [phone] Phone: tel: fax: Referral ID Status Reason Start Date Expiration Date Visits Re quested Visits Authorized [id number] Closed 11/14/2024 05/16/2026 1 1 * Imaging (Routine) - Closed Specialty Diagnoses / Procedures Referred By Contac t Referred To Contact Radiology Diagnoses Metastasis to liver Procedures IR Embolization Tumor or Ischemia or Infarction Franko Nava MD [address] [place] [phone] Phone: tel: fax: Referral ID Status Reason Start Date Expiration Date Visits Re quested Visits Authorized [id number] Closed 11/14/2024 05/16/2026 1 1 Reason for Visit * Reason Comments Multiple Complaints * Auth/Cert (Routine) Specialty Diagnoses / Procedures Referred By Contac t Referred To Contact Diagnoses SBO (small bowel obstruction) H/O cholelithiasis Other cholelithiasis without obstruction JOSIAS, symptomatic chololithiasis Rui Leonard, DO [address] [address] Phone: tel: fax: PAV H Inpatient [address] [place] [address] Phone: tel: Referral ID Status Reason Start Date Expiration Date Visits Re quested Visits Authorized [id number] 1 1 Encounter Details Date Type Department Care Team (Late st Contact Info) Description 11/08/2024 11:13 AM EDT - 11/14/2024 8:50 PM EDT Hospital Encounter P[facility] H Inpatient [address] [place] [phone] Long Rios MD [address] [place] [address] Mi Pascal, DO [address] [place] [id number] Rui Leonard, DO [address] [address] Morelia Galvez MD [address] [address] Korey Rolle MD [address] [facility] [address] [place] [id number] Karol Jane MD [address] [facility] [address] [place] [address] Metastasis to liver (CMS/HCC) (Primary Dx); Calculus [...] any time in the past 12 m [facility], were you homeless or living in a half-way (including now)? No 11/11/2024 [facility] Utilities Answer Date Recorded In the past 12 months has th e Uptake, gas, oil, or water [employer] threatened to shut off services in your [...] call: Vascular & Interventional Radiology Clinic at [phone] Sunday - Sunday 8:00 AM to 4:30 PM After hours, weekends, and holidays please call [phone] and ask for the Interventional Radiology provider/Resident on-call For Emergencies please go to the nearest Emergency Room or dial 911. Intervention Radiology Appointments: If you need to reschedule a procedure, please call our Schedulers at [phone], option [phone]. If you need to schedule or reschedule a clinic appointment, please call [phone]. [facility] Vascular and Interventional Radiology Clinic [facility] [address] [place] [address] Follow-Up / Post Discharge Instructions Medication Recommendations: - Okay to resume home medications - Take all medications as prescribed. - Acetaminophen (Tylenol) 650mg every 4-hrs alternating with ibuprofen 600mg every 6hrs for pain control. - Take oxycodone 5mg q4h prn pain Call MD editor dictionary for GYO service if: - you have a fever of 100.4 F or more - vaginal bleeding similar to a period - uncontrolled pain - difficulty with urination - persistent nausea/vomiting Follow up: Dr. Karol Jane - [facility] [address] 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 All questions answered and they [...] mg Oral q6h LIAT Jennifer Capps E, BUTTON STATION WORKER 500 mg at 11/13/24 1810 benzocaine-menthol (Chloraseptic) [...] mg Oral 4x daily Jennifer Capps E, BUTTON STATION WORKER 500 mg at 11/13/24 2019 metoclopramide (Reglan) [...] Travel Screening No screening recorded since 11/12/24 1313 Travel History Travel since 10/13/24 No documented [...] SCM TUBAL LIGATION N/A Tubal ligation from [facility] [3] Social History Tobacco Use Smoking [...] 500 mg Oral q6h LIAT Jennifer Capps, BUTTON STATION WORKER 500 mg at 11/13/24 1810 benzocaine-menthol (Chloraseptic) [...] 500 mg Oral 4x daily Jennifer Capps, BUTTON STATION WORKER 500 mg at 11/13/24 2019 metoclopramide (Reglan) [...] Jane MD PCP name and Address: Pcp, [place] [address] Referring provider name and address: Choco Roy, [address] [place] [address] Chief Concern, Brief History of Present Illness, and Hospital Course Radha Aparicio is a 44 y.o. female with history of high grade endometroid adenocarcinoma that previously saw the [facility] team and was lost to [...] follow up scheduled with Dr. Veloz at [facility] on 11/25. Surgeries and Procedures Procedures performed [...] Your Medications These medications were sent to [facility] [place], [place] - [address] [facility] [address] acetaminophen 500 MG tablet ondansetron ODT 4 [...] oxycodone 5mg q4h prn pain Call MD editor dictionary for GYO service if: - you have a fever of 100.4 F or more - vaginal bleeding similar to a period - uncontrolled pain - difficulty with urination - persistent nausea/vomiting Follow up: Dr. Karol Jane - [facility] [address] [facility], [address], [place] [address] Outpatient Follow-Up Future Appointments Date Time Provider Department Center 11/14/2024 2:30 PM [facility] Discharge Disposition/Condition Disposition: [...] Note Radha Aparicio 44 y.o. female CSN: [id number] Admission: 11/08/2024 11:13 AM Primary Problem: Calculus of gallbladder without cholecystitis without obstruction Primary Mincemeat Maker: self/family Assistance Available at Discharge: Kaushal Aparicio (Brother) and her dad Current Outpatient/Agency/Support Group: clinic(s) Availability of Care Givers (#Hours): 24 hours Family/Mincemeat Maker(s) Willingness Assessed to care for patient at home: Yes Family/Mincemeat Maker(s) Readiness Assessed to care for patient at [...] team. Patient reports home assistance and transport. [id number] enrollment complete. Radha Langston RN * Progress [...] per chart review) with Dr. Veloz at [facility] - Lost to follow up due to [...] several large liver lesions (right dome -- [id number] (enlarged from 4.7 x 4.2) & 10.5 [...] to follow. Please messageon-call GYO resident via [employer] Secure Chat or page [phone] for questions or concerns regarding this patient's GYO care. Morena Gray MD Obstetrics & Gynecology, PGY-2 [facility] Cosigned by Karol Jane MD [...] per chart review) with Dr. Veloz at [facility] - Lost to follow up due to [...] several large liver lesions (right dome -- [id number] (enlarged from 4.7 x 4.2) & 10.5 [...] to follow. Please messageon-call GYO resident via [employer] Secure Chat or page [phone] for questions or concerns regarding this patient's GYO care. Morena Gray MD Obstetrics & Gynecology, PGY-2 [facility] Cosigned by Karol Jane MD [...] semipermeable dressing * Care Plan - Jennifer Gracia - 11/12/2024 11:55 PM EDT Problem: Adult [...] Interventions: pain management plan reviewed with patient/caregiver rrtluh-qrd-[id number] dosing utilized Intervention: Provide Person-Centered Care Flowsheets [...] per chart review) with Dr. Veloz at [facility] - Lost to follow up due to [...] several large liver lesions (right dome -- [id number] (enlarged from 4.7 x 4.2) & 10.5 [...] to follow. Please messageon-call GYO resident via [employer] Secure Chat or page [phone] for questions or concerns regarding this patient's GYO care. Morena Gray MD Obstetrics & Gynecology, PGY-2 [facility] Cosigned by Karol Jane MD [...] Note Radha Aparicio 44 y.o. female CSN: [id number] Admission: 11/08/2024 11:13 AM Primary Problem: Calculus of gallbladder without cholecystitis without obstruction Scrap Iron Loader reviewed chart and spoke with patient to complete this Initial Case Management Assessment. PCP: Dr. Benny Gonzalez Emergency Contact: Extended Emergency Contact Information Primary Emergency Contact: Kaushal Aparicio Mobile Relation: Brother Preferred language: Danish Community Chest Officer needed? No Insurance: Primary Visit Coverage Payer Plan Sponsor Code Group Number Group Name [employer] [facility] . Primary Visit Coverage Subscriber Subscriber ID Subscriber Name Subscriber N Subscriber Address [id number] RADHA APARICIO [id number] [place] [address] Patient information: admit to with history of high grade endometroid adenocarcinoma previously admitted to Surgery for cholelithiasis. Confirmed home address and insurance information. Reports home assistance and transport. Pharmacy: [facility] Accompanied by/Relationship: aunt Jennifer and Clara at bedside for visit. Support System: Immediate family Daily Living Activities: Functional Status: Independent Living Arrangements: Parent/Yonatanan (reports she lives with her dad Conor) Type of Residence: Private residence [address] [place] [address] Current DME: Equipment Currently Used at Home: [...] Dialysis Services: none Living Will/Advance Directive/Power of Gericare Aide Teacher /Guardian: none Advance Directive: Not applicable Information [...] 11:30 AM EDT Associated Problem(s): Endometrial cancer Financial Examiner Onc consultation * Progress Notes - Socrates Garnica MD - 11/11/2024 11:28 AM EDT 11/11/24 Radha Stocktremayne Aparicio HPI Radha Aparicio is a 44 y.o. 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 Morelia Galvez MD, FACS agronomy internship Trauma Acute Care Surgery * Care Plan [...] per chart review) with Dr. Veloz at [facility] - Lost to follow up due to [...] several large liver lesions (right dome -- [id number] (enlarged from 4.7 x 4.2) & 10.5 [...] to follow. Please messageon-call GYO resident via [employer] Secure Chat or page [phone] for questions or concerns regarding this patient's GYO care. Morena Gray MD Obstetrics & Gynecology, PGY-2 [facility] Cosigned by Korey Rolle MD [...] 11/10/20242309) Pain Management Interventions: medication (see MAR) xmtukh-gci-kuvvk dosing utilized pain management plan reviewed with patient/caregiver Intervention: Provide Person-Centered Care Flowsheets (Taken 11/10/20242309) Trust Relationship/Rapport: care explained empathic listening provided * Transfer of Care - Socrates Garnica MD - 11/10/2024 2:33 PM EDT Radha Aparicio is a 44 y.o. female with history of endometrial cancer with possible metastasisto the liver presenting to [facility] on 11/08/2024 with one week of [...] by mouth today. Will transfer care to Financial Examiner Onc today given patient history and clinical picture. Patient tolerating PO at time of transfer. Javier Garnica MD PGY-1, Blue Surgery [facility] * Assessment & Plan Note [...] 1:52 PM EDT Associated Problem(s): Endometrial cancer Financial Examiner Onc consultation * Progress Notes - Socrates Garnica MD - 11/10/2024 11:20 AM EDT 11/10/24 Radha Stockn Markus is a 44 y.o. female with history of endometrial cancer with possible metastasisto the liver presenting to [facility] on 11/08/2024 with one week of nausea, vomiting, anorexia, and RUQ pain. US and CT demonstrated cholelithiasis and increase in interval of her liver metastaticlesion. Interval: VSS. AF. She continues to have RUQ pain though improved today. States that she continues to have nausea but currently no vomiting. Has been able to tolerate some small food. Likely not gallbladder related. 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 Morelia Galvez MD, FACS agronomy internship Trauma Acute Care Surgery * Consults - Michelle Ramos MD - 11/10/2024 10:11 AM EDTAssociated Order(s): IP CONSULT TO INTERVENTIONAL RADIOLOGY 11/10/24 Patient: Radha Aparicio Date of : 1980/44 y.o. Requesting Service: SKILLED NURSING FACILITY COUNSELOR Chief complaint Abdominal pain and increase in [...] this patient. Michelle Ramos MD Interventional Radiology [phone] [1] Past Medical History: Diagnosis Date Disease of salivary gland, unspecified Parotid mass [2] Past Surgical History: Procedure Laterality Date HYSTERECTOMY N/A Hysterectomy from [facility] TUBAL LIGATION N/A Tubal ligation from [facility] [3] Social History Tobacco Use Smoking [...] per chart review) with Dr. Veloz at [facility] - Lost to follow up due to [...] several large liver lesions (right dome -- [id number] (enlarged from 4.7 x 4.2) & 10.5 [...] to follow. Please messageon-call GYO resident via [employer] Secure Chat or page [phone] for questions or concerns regarding this patient's GYO care. Morena Gray MD Obstetrics & Gynecology, PGY-2 [facility] Cosigned by Korey Rolle MD [...] 11/09/2024 9:18 PM EDT 11/09/24 Radha Aparicio [facility] Radha Aparicio is a 44 y.o. female with history of endometrial cancer with possible metastasisto the liver presenting to [facility] on 11/08/2024 with one week of [...] not knowing exactly what is going on. Financial Examiner Onc consulted due do increase in size [...] Plan: [ ] f/u liver biopsy - Financial Examiner-Onc consulted: IR consult for guided biopsy of [...] CT abdomen and pelvis completed and reviewed Financial Examiner Onc consultation I do not think her abdominal pain is consistent with acute cholecystitis and we discussed with the patient we would not proceed with operative intervention at this time Morelia Galvez MD, FACS agronomy internship Trauma Acute Care Surgery * Procedures - [...] on imaging. [facility] [...] for characterization. She has followed up with [facility] onc provider since then. She reports he [...] per chart review) with Dr. Veloz at [facility] - Lost to follow up due to [...] several large liver lesions (right dome -- [id number] (enlarged from 4.7 x 4.2) & 10.5 [...] follow.. Please message on-call GYO resident via [employer] Secure Chat or page [phone] for questions or concerns regardingthis patient's care. Christine Morrison MD Obstetrics and Gynecology, PGY-3 [1] Past Medical History: Diagnosis Date Disease of salivary gland, unspecified Parotid mass [2] Past Surgical History: Procedure Laterality Date HYSTERECTOMY N/A Hysterectomy from [facility] TUBAL LIGATION N/A Tubal ligation from [facility] [3] Family History Problem Relation Name [...] Disorder Social Drivers of Health Received from [facility] Family and Community Support Received from [facility] Abuse Screen Received from [facility] Housing Stability [5] Allergies Allergen Reactions [...] of nausea are kept under control during [id number] shift Individualized Care Needs: nausea/vomiting management Anxieties, [...] grade endometroid adenocarcinoma [facility] and was lost to follow [...] follow up scheduled with Dr. Veloz at [facility] on 11/25. * Care Plan - Naida [...] metastasisto the liver presenting to [facility] on 11/08/2024 with one week of [...] that worsens after eating. She presented to [facility] a week ago for these symptoms, and was discharged after one day. She presented to the OSH again today, and was transferred to [facility] for concerns forcholelithiasis vs. PE. OSH was [...] [facility]) Patient care assumed by [facility] Armaan campbell, at shift change, tentative plan at the time of sign-out was pending S recs ED Prescriptions None - Hugo Meehan, MS4 [1] Past Medical History: Diagnosis Date Disease of salivary gland, unspecified Parotid mass [2] Past Surgical History: Procedure Laterality Date HYSTERECTOMY N/A Hysterectomy from [facility] TUBAL LIGATION N/A Tubal ligation from [facility] [3] Family History Problem Relation Name [...] None Disposition Admit Admitting/Attending Physician: RUI LEONARD [[id number]] Provider Care Team: E EMERGENCY GENERAL SURGERY [...] EST Appointment [facility] Radiology [address] [place] [address] 03/19/2025 1:45 PM EST Office Visit [facility] Gynecology [address] [place] [address] Karol Jane MD [address] [facility] [address] [place] [address] Scheduled Orders Name Type Priority Associated Diagnoses [...] Name Priority Date/Time Associated Diagnosis Comments CARIS [place] TUMOR SEEK HYBRID + IHCS AND OTHER [...] concern for intratumoral hemorrhage. Patient presents to [facility] for bland embolization of tumor. Additionally, rebiopsy of liver mass is planned due to possible progression. TECHNIQUE: Wool Supplier: Franko Nava MD Secondary Hand Grinder: Luis Miguel Estes M.D. Rad Dose: [id number] [...] 5 F vascular sheath. Using a 5 Lithuanian contra 2 catheter, the celiac axis was [...] concern for intratumoral hemorrhage. Patient presents to [facility] embolization of tumor. Additionally, rebiopsy of liver mass isplanned due to possible progression. TECHNIQUE: Wool Supplier: Franko Nava MD Secondary Hand Grinder: Luis Miguel Estes M.D. Rad Dose: [id number] [...] 5 F vascular sheath. Using a 5 Lithuanian contra 2catheter, the celiac axis was catheterized. [...] concern for intratumoral hemorrhage. Patient presents to [facility] for bland embolization of tumor. Additionally, rebiopsy of liver mass is planned due to possible progression. TECHNIQUE: Wool Supplier: Franko Nava MD Secondary Hand Grinder: Luis Miguel Estes M.D. Rad Dose: 1674 [...] 5 F vascular sheath. Using a 5 Lithuanian contra 2 catheter, the celiac axis was [...] concern for intratumoral hemorrhage. Patient presents to [facility] embolization of tumor. Additionally, rebiopsy of liver mass isplanned due to possible progression. TECHNIQUE: Wool Supplier: Franko Nava MD Secondary Hand Grinder: Luis Miguel Estes M.D. Rad Dose: 1674 [...] 5 F vascular sheath. Using a 5 Lithuanian contra 2catheter, the celiac axis was catheterized. [...] PROCEDURES Final Resu lt * (ABNORMAL) [facility]is [place] Cancer Seek Hybrid??? + IHCs and Other Tests by Tumor Type (11/18/2024 2:55 PM EDT) [facility] PD-L1 (22C3) Negative 2024 1:[address] Mismatch Repair Status Proficient (Intact) 11/30/2024 1:[address] Genomic Loss of Heterozygosity - [place] Low 1% 11/30/2024 1:58 PM EDT [facility] [employer] [facility] Microsatellite Instability - [place] Stable 11/30/2024 1:58 PM EDT [employer] [facility] Tumor Mutational [place] - [place] Low 1 per Mb 11/30/2024 1:58 PM EDT [facility] [employer] [facility] Estrogen Receptor Positive 11/30/2024 1:58 PM EDT [facility] [employer] [facility] Her2/Shoaib Negative 11/30/2024 1:58 PM EDT [facility] [employer] [facility] Progesterone Receptor Negative 11/30/2024 1:58 PM EDT [facility] [place] ELIZABET JAIN MLH1 Intact nuclear expression 11/30/2024 1:58 PM EDT [employer] [facility] MSH2 Intact nuclear expression 11/30/2024 1:58 PM EDT [facility] [employer] [facility] MSH6 Intact nuclear expression 11/30/2024 1:58 PM EDT [employer] [facility] PMS2 Intact nuclear expression 11/30/2024 1:58 PM EDT [facility] [employer] [facility] HLA-A - [place] -,A*02:01 11/30/2024 1:58 PM EDT [employer] [facility] HLA-B - [place] B*40:01,B*44: 02 11/30/2024 1:58 PM EDT [employer] [facility] HLA-C - [place] C*03:04,C*05: 01 11/30/2024 1:58 PM EDT [employer] Tissue Non-blood Collection / Unknown 11/18/2024 2:55 PM EDT 11/21/2024 1:03 PM EDT Narrative This result has genomic variants that were not included in this document. us Karol Jane MD LAB MOL DX NO SOURCE Final Re sult [facility] [address] [address], * Phosphorus, Plasma (11/14/2024 1:07 AM EDT) Phosphorus, Plasma 3.6 2.5 - 4.5 mg/dL 11/14/2024 2:18 AM EDT [facility] Blood Venous blood specimen / Unknown Venipuncture / Unknown 11/14/2024 1:07 AM EDT 11/14/2024 1:49 AM EDT Korey Rolle MD LAB BLOOD ORDERABLES Final Result [facility] [address] [place] [address] * Magnesium, Plasma (11/14/2024 1:07 AM EDT) Magnesium, Plasma 1.9 1.9 - 2.4 mg/dL 11/14/2024 2:18 AM EDT [facility] Blood Venous blood specimen / Unknown Venipuncture / Unknown 11/14/2024 1:07 AM EDT 11/14/2024 1:49 AM EDT Korey Rolle MD LAB BLOOD ORDERABLES Final Result Performing Organization Address City/[facility]/ZIP Co de Phone Number [facility] [address] [place] [address] * (ABNORMAL) Ionized calcium, whole blood (11/14/2024 1:07 AM EDT) Ionized Calcium, Whole Blood 4.4(L) 4.6 - 5.1 mg/dL LAB HEMATOLOGY METHOD 11/14/2024 1:58 AM EDT [facility] Blood Venous blood specimen / Unknown Venipuncture / Unknown 11/14/2024 1:07 AM EDT 11/14/2024 1:50 AM EDT us Korey Rolle MD LAB BLOOD ORDERABLES Final Result [facility] [address] [place] [address] * (ABNORMAL) Basic metabolic panel (11/14/2024 1:07 AM EDT) Glucose, Plasma 85 74 - 99 mg/dL 11/14/2024 2:18 AM EDT [facility] BUN, Plasma 12 7 - 21 mg/dL 11/14/2024 2:18 AM EDT [facility] Creatinine, Plasma 0.99 0.60 - 1.10 mg/dL 11/14/2024 2:18 AM EDT [facility] [facility] BUN/Creatinine Ratio 12 11/14/2024 2:18 AM EDT [facility] Sodium, Plasma 142 136 - 145 mmol/L 11/14/2024 2:18 AM EDT [facility] Potassium, Plasma 3.7 3.6 - 4.9 mmol/L 11/14/2024 2:18 AM EDT [facility] Chloride, Plasma 108(H) 97 - 107 mmol/L 11/14/2024 2:18 AM EDT [facility] CO2, Plasma 21(L) 22 - 29 mmol/L 11/14/2024 2:18 AM EDT [facility] Anion Gap 13 6 - 16 mmol/L 11/14/2024 2:18 AM EDT [facility] Total Calcium, Plasma 8.1(L) 8.9 - 10.2 mg/dL 11/14/2024 2:18 AM EDT [facility] eGFRcr 71.4 mL/min/1.7 3m*2 11/14/2024 2:18 AM EDT [facility] Comment:Reported eGFRcr in m L/min/1.73m2 is based the CKD-EPI 2020 equation that does not use a race coefficient. Blood Venous blood specimen / Unknown Venipuncture / Unknown 11/14/2024 1:07 AM EDT 11/14/2024 1:49 AM EDT us Korey Rolle MD LAB BLOOD ORDERABLES Final Result [facility] [address] [place] [address] * (ABNORMAL) CBC (11/14/2024 1:07 AM EDT) WBC Count 9.73 3.70 - 10.30 10*3/uL LAB HEMATOLOGY METHOD 11/14/2024 1:57 AM EDT [facility] RBC Count 2.92(L) 3.90 - 5.20 10*6/uL LAB HEMATOLOGY METHOD 11/14/2024 1:57 AM EDT [facility] HGB 7.8(L) 11.2 - 15.7 g/dL LAB HEMATOLOGY METHOD 11/14/2024 1:57 AM EDT [facility] HCT 24.9(L) 34.0 - 45.0 % LAB HEMATOLOGY METHOD 11/14/2024 1:57 AM EDT [facility] Platelet Count 237 155 - 369 10*3/uL LAB HEMATOLOGY METHOD 11/14/2024 1:57 AM EDT [facility] MCV 85 79 - 98 fL LAB HEMATOLOGY METHOD 11/14/2024 1:57 AM EDT [facility] MCH 26.7 26.0 - 32.0 pg LAB HEMATOLOGY METHOD 11/14/2024 1:57 AM EDT [facility] MCHC 31.3 30.7 - 35.5 g/dL LAB HEMATOLOGY METHOD 11/14/2024 1:57 AM EDT [facility] RDW 16.6(H) 11.5 - 14.5 % LAB HEMATOLOGY METHOD 11/14/2024 1:57 AM EDT [facility] MPV 9.6 8.8 - 12.5 fL LAB HEMATOLOGY METHOD 11/14/2024 1:57 AM EDT [facility] nRBC 0.0 <=0.0 per 100 WBCs LAB HEMATOLOGY METHOD 11/14/2024 1:57 AM EDT [facility] Blood Venous blood specimen / Unknown Venipuncture / Unknown 11/14/2024 1:07 AM EDT 11/14/2024 1:49 AM EDT Korey Rolle MD LAB BLOOD ORDERABLES Final Result [facility] [address] [place] [address] * (ABNORMAL) Fibrinogen (11/14/2024 1:07 AM EDT) Fibrinogen, Quantitative (Clottable) 512(H) 208 - 459 mg/dL LAB COAGULATION METHOD 11/14/2024 2:09 AM EDT [facility] Blood Venous blood specimen / Unknown Venipuncture / Unknown 11/14/2024 1:07 AM EDT 11/14/2024 1:48 AM EDT Karol Jane MD LAB BLOOD ORDERABLES Final Re sult Performing Organization Address [facility] Co de Phone Number [facility] [address] [place] [address] * (ABNORMAL) APTT (11/14/2024 1:07 AM EDT) aPTT 23(L) 25 - 35 sec LAB COAGULATION METHOD 11/14/2024 2:09 AM EDT [facility] Blood Venous blood specimen / Unknown Venipuncture / Unknown 11/14/2024 1:07 AM EDT 11/14/2024 1:48 AM EDT Karol Jane MD LAB BLOOD ORDERABLES Final Re sult Performing Organization Address [facility] Co de Phone Number [facility] [address] [place] [address] * (ABNORMAL) Protime-INR (11/14/2024 1:07 AM EDT) Prothrombin Time 14.8(H) 12.0 - 14.3 sec LAB COAGULATION METHOD 11/14/2024 2:09 AM EDT [facility] INR 1.2(H) 0.9 - 1.1 LAB COAGULATION METHOD 11/14/2024 2:09 AM EDT [facility] Blood Venous blood specimen / Unknown Venipuncture / Unknown 11/14/2024 1:07 AM EDT 11/14/2024 1:48 AM EDT Narrative [facility] - 11/14/2024 2:09 AM EDT OPTIMAL INR RANGES FOR PATIENT ON ORAL ANTICOAGULANT THERAPY Prevention of venous thromboembolism INR 2.0 to 3.0 In patients with heart disease: Atrial fibrillation INR 2.0 to 3.0 Valvular heart disease INR 2.0 to 3.0 Tissue heart valves INR 2.0 to 3.0 Mechanical prosthetic valves INR 2.5 to 3.5 Prevention of recurrent [place] INR 2.5 to 3.5 Karol Jane MD LAB BLOOD ORDERABLES Final Re sult Performing Organization Address [facility]/[place] [address] * Phosphorus, Plasma (11/13/2024 3:01 AM EDT) Phosphorus, Plasma 3.6 2.5 - 4.5 mg/dL 11/13/2024 3:34 AM EDT [facility] Blood Venous blood specimen / Unknown Venipuncture / Unknown 11/13/2024 3:01 AM EDT 11/13/2024 3:05 AM EDT Korey Rolle MD LAB BLOOD ORDERABLES Final Result Performing Organization Address [facility] [place] [address] * Magnesium, Plasma (11/13/2024 3:01 AM EDT) Magnesium, Plasma 2.0 1.9 - 2.4 mg/dL 11/13/2024 3:34 AM EDT [facility] Blood Venous blood specimen / Unknown Venipuncture / Unknown 11/13/2024 3:01 AM EDT 11/13/2024 3:05 AM EDT Korey Rolle MD LAB BLOOD ORDERABLES Final Result Performing Organization Address [facility] Co de Phone Number [facility] [address] [place] [address] * (ABNORMAL) Ionized calcium, whole blood (11/13/2024 3:01 AM EDT) Ionized Calcium, Whole Blood 4.3(L) 4.6 - 5.1 mg/dL LAB HEMATOLOGY METHOD 11/13/2024 3:09 AM EDT [facility] Blood Venous blood specimen / Unknown Venipuncture / Unknown 11/13/2024 3:01 AM EDT 11/13/2024 3:07 AM EDT Korey Rolle MD LAB BLOOD ORDERABLES Final Result [facility] [address] [place] [address] * (ABNORMAL) Basic metabolic panel (11/13/2024 3:01 AM EDT) Glucose, Plasma 95 74 - 99 mg/dL 11/13/2024 3:34 AM EDT [facility] BUN, Plasma 14 7 - 21 mg/dL 11/13/2024 3:34 AM EDT [facility] Creatinine, Plasma 1.06 0.60 - 1.10 mg/dL 11/13/2024 3:34 AM EDT [facility] BUN/Creatinine Ratio 13 11/13/2024 3:34 AM EDT [facility] Sodium, Plasma 141 136 - 145 mmol/L 11/13/2024 3:34 AM EDT [facility] Potassium, Plasma 3.9 3.6 - 4.9 mmol/L 11/13/2024 3:34 AM EDT [facility] Chloride, Plasma 110(H) 97 - 107 mmol/L 11/13/2024 3:34 AM EDT [facility] CO2, Plasma 21(L) 22 - 29 mmol/L 11/13/2024 3:34 AM EDT [facility] Anion Gap 10 6 - 16 mmol/L 11/13/2024 3:34 AM EDT [facility] Total Calcium, Plasma 7.9(L) 8.9 - 10.2 mg/dL 11/13/2024 3:34 AM EDT [facility] eGFRcr 65.7 mL/min/1.7 3m*2 11/13/2024 3:34 AM EDT [facility] Comment:Reported eGFRcr in m L/min/1.73m2 is based the CKD-EPI 2020 equation that does not use a race coefficient. Blood Venous blood specimen / Unknown Venipuncture / Unknown 11/13/2024 3:01 AM EDT 11/13/2024 3:05 AM EDT Korey Rolle MD LAB BLOOD ORDERABLES Final Result [facility] [address] [place] [address] * (ABNORMAL) CBC (11/13/2024 3:01 AM EDT) WBC Count 9.57 3.70 - 10.30 10*3/uL LAB HEMATOLOGY METHOD 11/13/2024 3:16 AM EDT [facility] RBC Count 2.75(L) 3.90 - 5.20 10*6/uL LAB HEMATOLOGY METHOD 11/13/2024 3:16 AM EDT [facility] HGB 7.4(L) 11.2 - 15.7 g/dL LAB HEMATOLOGY METHOD 11/13/2024 3:16 AM EDT [facility] HCT 23.2(L) 34.0 - 45.0 % LAB HEMATOLOGY METHOD 11/13/2024 3:16 AM EDT [facility] Platelet Count 228 155 - 369 10*3/uL LAB HEMATOLOGY METHOD 11/13/2024 3:16 AM EDT [facility] MCV 84 79 - 98 fL LAB HEMATOLOGY METHOD 11/13/2024 3:16 AM EDT [facility] MCH 26.9 26.0 - 32.0 pg LAB HEMATOLOGY METHOD 11/13/2024 3:16 AM EDT [facility] MCHC 31.9 30.7 - 35.5 g/dL LAB HEMATOLOGY METHOD 11/13/2024 3:16 AM EDT [facility] RDW 16.6(H) 11.5 - 14.5 % LAB HEMATOLOGY METHOD 11/13/2024 3:16 AM EDT [facility] MPV 9.7 8.8 - 12.5 fL LAB HEMATOLOGY METHOD 11/13/2024 3:16 AM EDT [facility] nRBC 0.0 <=0.0 per 100 WBCs LAB HEMATOLOGY METHOD 11/13/2024 3:16 AM EDT [facility] Blood Venous blood specimen / Unknown Venipuncture / Unknown 11/13/2024 3:01 AM EDT 11/13/2024 3:05 AM EDT Korey Rolle MD LAB BLOOD ORDERABLES Final Result Performing Organization Address City/[facility]/ZIP Co de Phone Number [facility] [address] [place] [address] * PERIPHERAL IV (SMARTFORM LINK) (11/13/2024 2:59 [...] - 4.5 mg/dL 11/12/2024 12:15 PM EDT [facility] Blood Venous blood specimen / Unknown Venipuncture / Unknown 11/12/2024 10:59 AM EDT 11/12/2024 11:12 AM EDT Korey Rolle MD LAB BLOOD ORDERABLES Final Result Performing Organization Address [facility]/ZIP Co de Phone Number [facility] [address] [place] [address] * (ABNORMAL) Magnesium, Plasma (11/12/2024 10:59 AM EDT) Magnesium, Plasma 1.7(L) 1.9 - 2.4 mg/dL 11/12/2024 12:15 PM EDT [facility] Blood Venous blood specimen / Unknown Venipuncture / Unknown 11/12/2024 10:59 AM EDT 11/12/2024 11:12 AM EDT us Korey Rolle MD LAB BLOOD ORDERABLES Final Result Performing Organization Address [facility]/ZIP Co de Phone Number [facility] [address] [place] [address] * (ABNORMAL) Ionized calcium, whole blood (11/12/2024 10:59 AM EDT) Pathologist [facility] [place] Ionized Calcium, Whole Blood 4.5(L) 4.6 - 5.1 mg/dL LAB HEMATOLOGY METHOD 11/12/2024 11:08 AM EDT [facility] Blood Venous blood specimen / Unknown Venipuncture / Unknown 11/12/2024 10:59 AM EDT 11/12/2024 11:07 AM EDT us Korey Rolle MD LAB BLOOD ORDERABLES Final Result Performing Organization Address [facility] Co de Phone Number [facility] [address] [place] [address] * (ABNORMAL) Basic metabolic panel (11/12/2024 10:59 AM EDT) Pathologist [facility] [place] Glucose, Plasma 89 74 - 99 mg/dL 11/12/2024 12:15 PM EDT [facility] BUN, Plasma 16 7 - 21 mg/dL 11/12/2024 12:15 PM EDT [facility] Creatinine, Plasma 1.15(H) 0.60 - 1.10 mg/dL 11/12/2024 12:15 PM EDT [facility] BUN/Creatinine Ratio 14 11/12/2024 12:15 PM EDT [facility] Sodium, Plasma 141 136 - 145 mmol/L 11/12/2024 12:15 PM EDT [facility] Potassium, Plasma 3.7 3.6 - 4.9 mmol/L 11/12/2024 12:15 PM EDT [facility] Chloride, Plasma 109(H) 97 - 107 mmol/L 11/12/2024 12:15 PM EDT [facility] CO2, Plasma 21(L) 22 - 29 mmol/L 11/12/2024 12:15 PM EDT [facility] Anion Gap 11 6 - 16 mmol/L 11/12/2024 12:15 PM EDT [facility] Total Calcium, Plasma 8.5(L) 8.9 - 10.2 mg/dL 11/12/2024 12:15 PM EDT [facility] eGFRcr 59.6 mL/min/1.7 3m*2 11/12/2024 12:15 PM EDT [facility] Comment:Reported eGFRcr in m L/min/1.73m2 is based the CKD-EPI 2020 equation that does not use a race coefficient. Blood Venous blood specimen / Unknown Venipuncture / Unknown 11/12/2024 10:59 AM EDT 11/12/2024 11:12 AM EDT Korey Rolle MD LAB BLOOD ORDERABLES Final Result [facility] [address] [place] [address] * (ABNORMAL) CBC (11/12/2024 10:59 AM EDT) WBC Count 10.21 3.70 - 10.30 10*3/uL LAB HEMATOLOGY METHOD 11/12/2024 11:32 AM EDT [facility] RBC Count 2.96(L) 3.90 - 5.20 10*6/uL LAB HEMATOLOGY METHOD 11/12/2024 11:32 AM EDT [facility] HGB 7.8(L) 11.2 - 15.7 g/dL LAB HEMATOLOGY METHOD 11/12/2024 11:32 AM EDT [facility] HCT 25.1(L) 34.0 - 45.0 % LAB HEMATOLOGY METHOD 11/12/2024 11:32 AM EDT [facility] Platelet Count 266 155 - 369 10*3/uL LAB HEMATOLOGY METHOD 11/12/2024 11:32 AM EDT [facility] MCV 85 79 - 98 fL LAB HEMATOLOGY METHOD 11/12/2024 11:32 AM EDT [facility] MCH 26.4 26.0 - 32.0 pg LAB HEMATOLOGY METHOD 11/12/2024 11:32 AM EDT [facility] MCHC 31.1 30.7 - 35.5 g/dL LAB HEMATOLOGY METHOD 11/12/2024 11:32 AM EDT [facility] RDW 16.4(H) 11.5 - 14.5 % LAB HEMATOLOGY METHOD 11/12/2024 11:32 AM EDT [facility] MPV 9.8 8.8 - 12.5 fL LAB HEMATOLOGY METHOD 11/12/2024 11:32 AM EDT [facility] nRBC 0.0 <=0.0 per 100 WBCs LAB HEMATOLOGY METHOD 11/12/2024 11:32 AM EDT [facility] Blood Venous blood specimen / Unknown Venipuncture / Unknown 11/12/2024 10:59 AM EDT 11/12/2024 11:25 AM EDT Korey Rolle MD LAB BLOOD ORDERABLES Final Result [facility] [address] [place] [address] * Comprehensive GI Panel by PCR (11/11/2024 8:01 PM EDT) Campylobacter PCR Result Not Detected Not Detected 11/12/2024 5:52 AM EDT [facility] Plesiomonas shigelloides PCR Result Not Detected Not Detected 11/12/2024 5:52 AM EDT [facility] Salmonella PCR Result Not Detected Not Detected 11/12/2024 5:52 AM EDT [facility] Vibrio species PCR Result Not Detected Not Detected 11/12/2024 5:52 AM EDT [facility] Vibrio cholerae PCR Result Not Detected Not Detected 11/12/2024 5:52 AM EDT [facility] Yersinia enterocolitica PCR Result Not Detected Not Detected 11/12/2024 5:52 AM EDT [facility] Enteroaggregative E. coli (EAEC) PCR Result Not Detected Not Detected 11/12/2024 5:52 AM EDT [facility] Enteropathogenic E. coli (EPEC) PCR Result Not Detected Not Detected 11/12/2024 5:52 AM EDT [facility] Enterotoxigenic E. coli (ETEC) lt/st PCR Result Not Detected Not Detected 11/12/2024 5:52 AM EDT [facility] Shiga-like Toxin-Producing E.coli (STEC) stx1/stx2 PCR Resu Not Detected Not Detected 11/12/2024 5:52 AM EDT [facility] E coli 0157 PCR Result Not Detected Not Detected 11/12/2024 5:52 AM EDT [facility] Shigella/Enteroinvas christal E. coli (EIEC) PCR Result Not Detected Not Detected 11/12/2024 5:52 AM EDT [facility] Cryptosporidium PCR Result Not Detected Not Detected 11/12/2024 5:52 AM EDT [facility] Cyclospora cayetanensis PCR Result Not Detected Not Detected 11/12/2024 5:52 AM EDT [facility] Entamoeba histolytica PCR Result Not Detected Not Detected 11/12/2024 5:52 AM EDT [facility] Giardia duodenalis (aka Giardia lamblia) PCR Result Not Detected Not Detected 11/12/2024 5:52 AM EDT [facility] Adenovirus F 40/41 PCR Result Not Detected Not Detected 11/12/2024 5:52 AM EDT [facility] Astrovirus PCR Result Not Detected Not Detected 11/12/2024 5:52 AM EDT [facility] Norovirus GI/GII PCR Result Not Detected Not Detected 11/12/2024 5:52 AM EDT [facility] Rotavirus A PCR Result Not Detected Not Detected 11/12/2024 5:52 AM EDT [facility] Sapovirus PCR Result Not Detected Not Detected 11/12/2024 5:52 AM EDT [facility] Stool Rectum structure / Unknown Non-blood Collection / Unknown 11/11/2024 8:01 PM EDT 11/11/2024 8:13 PM EDT [facility] - 11/12/2024 5:52 AM EDT This [...] GENERAL ORDERABLES Final Result Performing Organization Address [facility] [place] [address] * Clostridiodes (Clostridium) difficile PCR (11/11/2024 8:01 PM EDT) C difficile PCR toxin B gene DNA Result Not Detected Not Detected 11/11/2024 9:22 PM EDT [facility] Stool Rectum structure / Unknown Non-blood Collection / Unknown 11/11/2024 8:01 PM EDT 11/11/2024 8:13 PM EDT Narrative [facility] - 11/11/2024 9:22 PM EDT This test [...] GENERAL ORDERABLES Final Result Performing Organization Address [facility] [place] [address] * CT Chest wo IV Contrast (11/11/2024 [...] MD on 11/11/2024 10:17 AM Jennifer Capps [employer] IMG CT PROCEDURES Final R esult * Sodium, urine, random (11/11/2024 3:34 AM EDT) Sodium, Urine 76 mmol/L 11/11/2024 4:13 AM EDT [facility] Urine Urine specimen obtained by clean catch procedure / Unknown Non-blood Collection / Unknown 11/11/2024 3:34 AM EDT 11/11/2024 3:43 AM EDT Morelia Galvez MD LAB URINE ORDERABLES Final Result [facility] [address] [place] [address] * Creatinine, urine, random (11/11/2024 3:34 AM EDT) Creatinine, Urine 105 mg/dL 11/11/2024 4:13 AM EDT [facility] Urine Urine specimen obtained by clean catch procedure / Unknown Non-blood Collection / Unknown 11/11/2024 3:34 AM EDT 11/11/2024 3:43 AM EDT Morelia Galvez MD LAB URINE ORDERABLES Final Result [facility] [address] [place] [address] * (ABNORMAL) Comprehensive Metabolic Panel, Plasma (11/11/2024 3:32 AM EDT) Glucose, Plasma 98 74 - 99 mg/dL 11/11/2024 4:27 AM EDT [facility] BUN, Plasma 18 7 - 21 mg/dL 11/11/2024 4:27 AM EDT [facility] Creatinine, Plasma 1.46(H) 0.60 - 1.10 mg/dL 11/11/2024 4:27 AM EDT [facility] BUN/Creatinine Ratio 12 11/11/2024 4:27 AM EDT [facility] Sodium, Plasma 142 136 - 145 mmol/L 11/11/2024 4:27 AM EDT [facility] Potassium, Plasma 4.1 3.6 - 4.9 mmol/L 11/11/2024 4:27 AM EDT [facility] Chloride, Plasma 111(H) 97 - 107 mmol/L 11/11/2024 4:27 AM EDT [facility] CO2, Plasma 19(L) 22 - 29 mmol/L 11/11/2024 4:27 AM EDT [facility] Anion Gap 12 6 - 16 mmol/L 11/11/2024 4:27 AM EDT [facility] Total Calcium, Plasma 8.3(L) 8.9 - 10.2 mg/dL 11/11/2024 4:27 AM EDT [facility] Total Protein 6.0(L) 6.3 - 7.9 g/dL 11/11/2024 4:27 AM EDT [facility] Albumin, Plasma 2.5(L) 3.5 - 5.2 g/dL 11/11/2024 4:27 AM EDT [facility] AST, Plasma 61(H) 10 - 35 U/L 11/11/2024 4:27 AM EDT [facility] ALT, Plasma 29 10 - 35 U/L 11/11/2024 4:27 AM EDT [facility] Alkaline Phosphatase, Plasma 238(H) 35 - 104 U/L 11/11/2024 4:27 AM EDT [facility] Total Bilirubin, Plasma 0.5 0.2 - 1.1 mg/dL 11/11/2024 4:27 AM EDT [facility] eGFRcr 44.8 mL/min/1.7 3m*2 11/11/2024 4:27 AM EDT [facility] Comment:Reported eGFRcr in m L/min/1.73m2 is based the CKD-EPI 2020 equation that does not use a race coefficient. Blood Venous blood specimen / Unknown Venipuncture / Unknown 11/11/2024 3:32 AM EDT 11/11/2024 3:45 AM EDT us Jennifer Capps [employer] LAB BLOOD ORDERABLES Sonali l Result [facility] [address] [place] [address] * (ABNORMAL) CBC W/O Differential (11/11/2024 3:32 AM EDT) WBC Count 11.86(H) 3.70 - 10.30 10*3/uL LAB HEMATOLOGY METHOD 11/11/2024 3:53 AM EDT [facility] RBC Count 2.86(L) 3.90 - 5.20 10*6/uL LAB HEMATOLOGY METHOD 11/11/2024 3:53 AM EDT [facility] HGB 7.5(L) 11.2 - 15.7 g/dL LAB HEMATOLOGY METHOD 11/11/2024 3:53 AM EDT [facility] HCT 24.0(L) 34.0 - 45.0 % LAB HEMATOLOGY METHOD 11/11/2024 3:53 AM EDT [facility] Platelet Count 248 155 - 369 10*3/uL LAB HEMATOLOGY METHOD 11/11/2024 3:53 AM EDT [facility] MCV 84 79 - 98 fL LAB HEMATOLOGY METHOD 11/11/2024 3:53 AM EDT [facility] MCH 26.2 26.0 - 32.0 pg LAB HEMATOLOGY METHOD 11/11/2024 3:53 AM EDT [facility] MCHC 31.3 30.7 - 35.5 g/dL LAB HEMATOLOGY METHOD 11/11/2024 3:53 AM EDT [facility] RDW 16.4(H) 11.5 - 14.5 % LAB HEMATOLOGY METHOD 11/11/2024 3:53 AM EDT [facility] MPV 9.7 8.8 - 12.5 fL LAB HEMATOLOGY METHOD 11/11/2024 3:53 AM EDT [facility] nRBC 0.0 <=0.0 per 100 WBCs LAB HEMATOLOGY METHOD 11/11/2024 3:53 AM EDT [facility] Blood Venous blood specimen / Unknown Venipuncture / Unknown 11/11/2024 3:32 AM EDT 11/11/2024 3:45 AM EDT us Jennifer Capps APRN LAB BLOOD ORDERABLES Sonali l Result Performing Organization Address [facility]/ZIP Co de Phone Number [facility] [address] [place] [address] * (ABNORMAL) Magnesium, Plasma (11/11/2024 3:32 AM EDT) Magnesium, Plasma 1.8(L) 1.9 - 2.4 mg/dL 11/11/2024 4:27 AM EDT [facility] Blood Venous blood specimen / Unknown Venipuncture / Unknown 11/11/2024 3:32 AM EDT 11/11/2024 3:45 AM EDT us Jennifer Capps [employer] LAB BLOOD ORDERABLES Sonali l Result [facility] [address] [place] [address] * Phosphorus, Plasma (11/11/2024 3:32 AM EDT) Phosphorus, Plasma 3.0 2.5 - 4.5 mg/dL 11/11/2024 4:27 AM EDT [facility] Blood Venous blood specimen / Unknown Venipuncture / Unknown 11/11/2024 3:32 AM EDT 11/11/2024 3:45 AM EDT us Jennifer Capps [employer] LAB BLOOD ORDERABLES Sonali barahona Result [facility] [address] [place] [address] * (ABNORMAL) Comprehensive metabolic panel (11/10/2024 10:30 AM EDT) Glucose, Plasma 96 74 - 99 mg/dL 11/10/2024 11:48 AM EDT [facility] BUN, Plasma 20 7 - 21 mg/dL 11/10/2024 11:48 AM EDT [facility] Creatinine, Plasma 1.53(H) 0.60 - 1.10 mg/dL 11/10/2024 11:48 AM EDT [facility] BUN/Creatinine Ratio 13 11/10/2024 11:48 AM EDT [facility] Sodium, Plasma 138 136 - 145 mmol/L 11/10/2024 11:48 AM EDT [facility] Potassium, Plasma 3.6 3.6 - 4.9 mmol/L 11/10/2024 11:48 AM EDT [facility] Chloride, Plasma 107 97 - 107 mmol/L 11/10/2024 11:48 AM EDT [facility] CO2, Plasma 16(L) 22 - 29 mmol/L 11/10/2024 11:48 AM EDT [facility] Anion Gap 15 6 - 16 mmol/L 11/10/2024 11:48 AM EDT [facility] Total Calcium, Plasma 8.4(L) 8.9 - 10.2 mg/dL 11/10/2024 11:48 AM EDT [facility] Total Protein 6.0(L) 6.3 - 7.9 g/dL 11/10/2024 11:48 AM EDT [facility] Albumin, Plasma 2.5(L) 3.5 - 5.2 g/dL 11/10/2024 11:48 AM EDT [facility] AST, Plasma 57(H) 10 - 35 U/L 11/10/2024 11:48 AM EDT [facility] Comment:Hemolyzed, result ma y be falsely increased. ALT, Plasma 23 10 - 35 U/L 11/10/2024 11:48 AM EDT [facility] Alkaline Phosphatase, Plasma 224(H) 35 - 104 U/L 11/10/2024 11:48 AM EDT [facility] LAB Total Bilirubin, Plasma 0.6 0.2 - 1.1 mg/dL 11/10/2024 11:48 AM EDT [facility] eGFRcr 42.3 mL/min/1.7 3m*2 11/10/2024 11:48 AM EDT [facility] Comment:Reported eGFRcr in m L/min/1.73m2 is based the CKD-EPI 2020 equation that does not use a race coefficient. Blood Venous blood specimen / Unknown Venipuncture / Unknown 11/10/2024 10:30 AM EDT 11/10/2024 10:34 AM EDT Morelia Galvez MD LAB BLOOD ORDERABLES Final Result [facility] [address] [place] [address] * (ABNORMAL) Basic Metabolic Panel, Plasma (11/10/2024 5:49 AM EDT) Glucose, Plasma 105(H) 74 - 99 mg/dL 11/10/2024 6:36 AM EDT [facility] BUN, Plasma 20 7 - 21 mg/dL 11/10/2024 6:36 AM EDT [facility] Creatinine, Plasma 1.76(H) 0.60 - 1.10 mg/dL 11/10/2024 6:36 AM EDT [facility] BUN/Creatinine Ratio 11 11/10/2024 6:36 AM EDT [facility] Sodium, Plasma 138 136 - 145 mmol/L 11/10/2024 6:36 AM EDT [facility] Potassium, Plasma 3.3(L) 3.6 - 4.9 mmol/L 11/10/2024 6:36 AM EDT [facility] Chloride, Plasma 107 97 - 107 mmol/L 11/10/2024 6:36 AM EDT [facility] CO2, Plasma 19(L) 22 - 29 mmol/L 11/10/2024 6:36 AM EDT [facility] Anion Gap 12 6 - 16 mmol/L 11/10/2024 6:36 AM EDT [facility] Total Calcium, Plasma 8.0(L) 8.9 - 10.2 mg/dL 11/10/2024 6:36 AM EDT [facility] eGFRcr 35.8 mL/min/1.7 3m*2 11/10/2024 6:36 AM EDT [facility] Comment:Reported eGFRcr in m L/min/1.73m2 is based the CKD-EPI 2020 equation that does not use a race coefficient. Blood Venous blood specimen / Unknown Venipuncture / Unknown 11/10/2024 5:49 AM EDT 11/10/2024 6:07 AM EDT Morelia Galvez MD LAB BLOOD ORDERABLES Final Result [facility] [address] [place] [address] * (ABNORMAL) CBC and Differential (11/10/2024 5:49 AM EDT) WBC Count 12.70(H) 3.70 - 10.30 10*3/uL LAB HEMATOLOGY METHOD 11/10/2024 6:14 AM EDT [facility] RBC Count 2.83(L) 3.90 - 5.20 10*6/uL LAB HEMATOLOGY METHOD 11/10/2024 6:14 AM EDT [facility] HGB 7.5(L) 11.2 - 15.7 g/dL LAB HEMATOLOGY METHOD 11/10/2024 6:14 AM EDT [facility] HCT 23.4(L) 34.0 - 45.0 % LAB HEMATOLOGY METHOD 11/10/2024 6:14 AM EDT [facility] Platelet Count 260 155 - 369 10*3/uL LAB HEMATOLOGY METHOD 11/10/2024 6:14 AM EDT [facility] MCV 83 79 - 98 fL LAB HEMATOLOGY METHOD 11/10/2024 6:14 AM EDT [facility] MCH 26.5 26.0 - 32.0 pg LAB HEMATOLOGY METHOD 11/10/2024 6:14 AM EDT [facility] MCHC 32.1 30.7 - 35.5 g/dL LAB HEMATOLOGY METHOD 11/10/2024 6:14 AM EDT [facility] RDW 16.3(H) 11.5 - 14.5 % LAB HEMATOLOGY METHOD 11/10/2024 6:14 AM EDT [facility] MPV 9.6 8.8 - 12.5 fL LAB HEMATOLOGY METHOD 11/10/2024 6:14 AM EDT [facility] nRBC 0.0 <=0.0 per 100 WBCs LAB HEMATOLOGY METHOD 11/10/2024 6:14 AM EDT [facility] Differential Type Automated LAB HEMATOLOGY METHOD 11/10/2024 6:14 AM EDT [facility] Neutrophils % 78 % LAB HEMATOLOGY METHOD 11/10/2024 6:14 AM EDT [facility] Lymphocytes % 12 % LAB HEMATOLOGY METHOD 11/10/2024 6:14 AM EDT [facility] Monocytes % 7 % LAB HEMATOLOGY METHOD 11/10/2024 6:14 AM EDT [facility] Eosinophils % 2 % LAB HEMATOLOGY METHOD 11/10/2024 6:14 AM EDT [facility] Basophils % 0 % LAB HEMATOLOGY METHOD 11/10/2024 6:14 AM EDT [facility] Immature Granulocytes % 1 % LAB HEMATOLOGY METHOD 11/10/2024 6:14 AM EDT [facility] Neutrophils Absolute 9.84(H) 1.60 - 6.10 10*3/uL LAB HEMATOLOGY METHOD 11/10/2024 6:14 AM EDT [facility] Lymphocytes Absolute 1.49 1.20 - 3.90 10*3/uL LAB HEMATOLOGY METHOD 11/10/2024 6:14 AM EDT [facility] Monocytes Absolute 0.93(H) 0.30 - 0.90 10*3/uL LAB HEMATOLOGY METHOD 11/10/2024 6:14 AM EDT [facility] Eosinophils Absolute 0.23 0.00 - 0.50 10*3/uL LAB HEMATOLOGY METHOD 11/10/2024 6:14 AM EDT [facility] Basophils Absolute 0.05 0.00 - 0.10 10*3/uL LAB HEMATOLOGY METHOD 11/10/2024 6:14 AM EDT [facility] Immature Granulocytes Absolute 0.16(H) 0.00 - 0.06 10*3/uL LAB HEMATOLOGY METHOD 11/10/2024 6:14 AM EDT [facility] Blood Venous blood specimen / Unknown Venipuncture / Unknown 11/10/2024 5:49 AM EDT 11/10/2024 6:06 AM EDT Narrative [facility] - 11/10/2024 6:14 AM EDT Therapeutic decision making should be based on absolute values, rather than percentages. us Morelia Galvez MD LAB BLOOD ORDERABLES Final Result [facility] [address] [place] [address] * Magnesium, Plasma (11/10/2024 5:49 AM EDT) Magnesium, Plasma 2.1 1.9 - 2.4 mg/dL 11/10/2024 6:36 AM EDT [facility] Blood Venous blood specimen / Unknown Venipuncture / Unknown 11/10/2024 5:49 AM EDT 11/10/2024 6:07 AM EDT us Morelia Galvez MD LAB BLOOD ORDERABLES Final Result [facility] [address] [place] [address] * Phosphorus, Plasma (11/10/2024 5:49 AM EDT) Phosphorus, Plasma 3.1 2.5 - 4.5 mg/dL 11/10/2024 6:36 AM EDT [facility] Blood Venous blood specimen / Unknown Venipuncture / Unknown 11/10/2024 5:49 AM EDT 11/10/2024 6:07 AM EDT us Morelia Galvez MD LAB BLOOD ORDERABLES Final Result [facility] [address] [place] [address] * PERIPHERAL IV (SMARTFORM LINK) (11/09/2024 5:08 [...] (series 3, image 74 and series 5, ) , previously measured 9.0 x 6.1 x [...] Comment 11/09/2024 7:13 AM EDT [facility] Hand Grinder ID Justine Singh 11/09/2024 7:13 AM EDT [facility]ALTH[facility] LAB Device ID [id number] 11/09/2024 7:13 AM EDT [facility] LAB Specimen Type POC Capillary 11/09/2024 7:13 AM EDT [facility] Blood Capillary blood specimen / Unknown 11/09/2024 7:12 AM EDT 11/09/2024 7:13 AM EDT Morelia Galvez MD LAB POINT OF CARE TEST DOCKED DEVICE UNSOLICITED RESULTS Final Result Performing Organization Address [facility]/ZIP Co de Phone Number [facility] [address] [place] [address] * (ABNORMAL) Magnesium (11/09/2024 2:04 AM EDT) [facility] Magnesium, Plasma 1.7(L) 1.9 - 2.4 mg/dL 11/09/2024 3:13 AM EDT [facility] Blood Venous blood specimen / Unknown Venipuncture / Unknown 11/09/2024 2:04 AM EDT 11/09/2024 2:44 AM EDT us Rui Leonard DO LAB BLOOD ORDERABLES Final Res ult [facility] [address] [place] [address] * Phosphorus (11/09/2024 2:04 AM EDT) Phosphorus, Plasma 3.9 2.5 - 4.5 mg/dL 11/09/2024 3:13 AM EDT [facility] Blood Venous blood specimen / Unknown Venipuncture / Unknown 11/09/2024 2:04 AM EDT 11/09/2024 2:44 AM EDT us Rui Leonard DO LAB BLOOD ORDERABLES Final Res ult [facility] [address] [place] [address] * (ABNORMAL) Basic Metabolic Panel (11/09/2024 2:04 AM EDT) Pathologist [facility] [place] Glucose, Plasma 96 74 - 99 mg/dL 11/09/2024 3:13 AM EDT [facility] BUN, Plasma 21 7 - 21 mg/dL 11/09/2024 3:13 AM EDT [facility] Creatinine, Plasma 1.81(H) 0.60 - 1.10 mg/dL 11/09/2024 3:13 AM EDT [facility] BUN/Creatinine Ratio 12 11/09/2024 3:13 AM EDT [facility] Sodium, Plasma 139 136 - 145 mmol/L 11/09/2024 3:13 AM EDT [facility] Potassium, Plasma 3.0(L) 3.6 - 4.9 mmol/L 11/09/2024 3:13 AM EDT [facility] Chloride, Plasma 104 97 - 107 mmol/L 11/09/2024 3:13 AM EDT [facility] CO2, Plasma 19(L) 22 - 29 mmol/L 11/09/2024 3:13 AM EDT [facility] Anion Gap 16 6 - 16 mmol/L 11/09/2024 3:13 AM EDT [facility] Total Calcium, Plasma 8.3(L) 8.9 - 10.2 mg/dL 11/09/2024 3:13 AM EDT [facility] eGFRcr 34.6 mL/min/1.7 3m*2 11/09/2024 3:13 AM EDT [facility] Comment:Reported eGFRcr in m L/min/1.73m2 is based the CKD-EPI 2020 equation that does not use a race coefficient. Blood Venous blood specimen / Unknown Venipuncture / Unknown 11/09/2024 2:04 AM EDT 11/09/2024 2:44 AM EDT us Rui Leonard DO LAB BLOOD ORDERABLES Final Res ult [facility] [address] [place] [address] * (ABNORMAL) CBC (11/09/2024 2:04 AM EDT) WBC Count 12.51(H) 3.70 - 10.30 10*3/uL LAB HEMATOLOGY METHOD 11/09/2024 2:53 AM EDT [facility] RBC Count 2.74(L) 3.90 - 5.20 10*6/uL LAB HEMATOLOGY METHOD 11/09/2024 2:53 AM EDT [facility] HGB 7.4(L) 11.2 - 15.7 g/dL LAB HEMATOLOGY METHOD 11/09/2024 2:53 AM EDT [facility] HCT 22.8(L) 34.0 - 45.0 % LAB HEMATOLOGY METHOD 11/09/2024 2:53 AM EDT [facility] Platelet Count 261 155 - 369 10*3/uL LAB HEMATOLOGY METHOD 11/09/2024 2:53 AM EDT [facility] MCV 83 79 - 98 fL LAB HEMATOLOGY METHOD 11/09/2024 2:53 AM EDT [facility] MCH 27.0 26.0 - 32.0 pg LAB HEMATOLOGY METHOD 11/09/2024 2:53 AM EDT [facility] MCHC 32.5 30.7 - 35.5 g/dL LAB HEMATOLOGY METHOD 11/09/2024 2:53 AM EDT [facility] RDW 16.2(H) 11.5 - 14.5 % LAB HEMATOLOGY METHOD 11/09/2024 2:53 AM EDT [facility] MPV 9.8 8.8 - 12.5 fL LAB HEMATOLOGY METHOD 11/09/2024 2:53 AM EDT [facility] nRBC 0.0 <=0.0 per 100 WBCs LAB HEMATOLOGY METHOD 11/09/2024 2:53 AM EDT [facility] Blood Venous blood specimen / Unknown Venipuncture / Unknown 11/09/2024 2:04 AM EDT 11/09/2024 2:44 AM EDT us Rui Leonard DO LAB BLOOD ORDERABLES Final Res ult Performing Organization Address [facility] de Phone Number [facility] [address] [place] [address] * (ABNORMAL) Troponin T, High Sensitivity, 2 Hour, Plasma (11/08/2024 3:17 PM EDT) Troponin T, High Sensitivity, 2 Hour 17(H) <14 ng/L 11/08/2024 3:51 PM EDT [facility] Troponin Delta 3 <10 ng/L 11/08/2024 3:51 PM EDT [facility] Troponin Delta Interpretation Not Significant 11/08/2024 3:51 PM EDT [facility] Comment:Not Significant. No acute change in troponin observed between the baseline and 2 hour samples. Blood Venous blood specimen / Unknown Venipuncture / Unknown 11/08/2024 3:17 PM EDT 11/08/2024 3:24 PM EDT us Long Rios MD LAB BLOOD ORDERABLES Final R esult Performing Organization Address [facility] Co de Phone Number [facility] [address] [place] [address] * Heparin level (11/08/2024 1:57 PM EDT) Anti Xa Level Unfractionated Heparin <0.11 <1.00 IU/mL LAB COAGULATION METHOD 11/08/2024 2:26 PM EDT [facility] Blood Venous blood specimen / Unknown Venipuncture / Unknown 11/08/2024 1:57 PM EDT 11/08/2024 2:07 PM EDT Narrative [facility] - 11/08/2024 2:26 PM EDT Therapeutic Range: UFH Full Dose and ACS/[place] protocols*: 0.30 - 0.70 IU/mL UFH Low Dose protocol*: 0.25 - 0.50 IU/mL UFH prophylaxis: Not established us Long Rios MD LAB BLOOD ORDERABLES Final R esult [facility] [address] [place] [address] * US Abdomen Focused Region GB, Bile [...] HIV 1/2 Differentiation (11/08/2024 1:12 PM EDT) [facility] HIV 1 & 2 Antibody/Antigen Screen Non Reactive Non Reactive 11/08/2024 2:06 PM EDT [facility] Comment:Screening for HIV 1 & 2 antibodies, and P24 antigen is NONREACTIVE. No confirmatory testing is required. Blood Venous blood specimen / Unknown Venipuncture / Unknown 11/08/2024 1:12 PM EDT 11/08/2024 1:24 PM EDT us Long Rios MD LAB BLOOD ORDERABLES Final R esult [facility] [address] [place] [address] * (ABNORMAL) PT-INR (11/08/2024 1:12 PM EDT) [facility] Prothrombin Time 16.3(H) 12.0 - 14.3 sec LAB COAGULATION METHOD 11/08/2024 1:48 PM EDT [facility] INR 1.3(H) 0.9 - 1.1 LAB COAGULATION METHOD 11/08/2024 1:48 PM EDT [facility] Blood Venous blood specimen / Unknown Venipuncture / Unknown 11/08/2024 1:12 PM EDT 11/08/2024 1:25 PM EDT Narrative [facility] - 11/08/2024 1:48 PM EDT OPTIMAL INR RANGES FOR PATIENT ON ORAL ANTICOAGULANT THERAPY Prevention of venous thromboembolism INR 2.0 to 3.0 In patients with heart disease: Atrial fibrillation INR 2.0 to 3.0 Valvular heart disease INR 2.0 to 3.0 Tissue heart valves INR 2.0 to 3.0 Mechanical prosthetic valves INR 2.5 to 3.5 Prevention of recurrent [place] INR 2.5 to 3.5 us Long Rios MD LAB BLOOD ORDERABLES Final R esult [facility] [address] [place] [address] * (ABNORMAL) CBC w/diff (11/08/2024 1:12 PM EDT) WBC Count 13.33(H) 3.70 - 10.30 10*3/uL LAB HEMATOLOGY METHOD 11/08/2024 1:33 PM EDT [facility] RBC Count 3.41(L) 3.90 - 5.20 10*6/uL LAB HEMATOLOGY METHOD 11/08/2024 1:33 PM EDT [facility] HGB 9.1(L) 11.2 - 15.7 g/dL LAB HEMATOLOGY METHOD 11/08/2024 1:33 PM EDT [facility] HCT 27.9(L) 34.0 - 45.0 % LAB HEMATOLOGY METHOD 11/08/2024 1:33 PM EDT [facility] Platelet Count 301 155 - 369 10*3/uL LAB HEMATOLOGY METHOD 11/08/2024 1:33 PM EDT [facility] MCV 82 79 - 98 fL LAB HEMATOLOGY METHOD 11/08/2024 1:33 PM EDT [facility] MCH 26.7 26.0 - 32.0 pg LAB HEMATOLOGY METHOD 11/08/2024 1:33 PM EDT [facility] MCHC 32.6 30.7 - 35.5 g/dL LAB HEMATOLOGY METHOD 11/08/2024 1:33 PM EDT [facility] RDW 15.9(H) 11.5 - 14.5 % LAB HEMATOLOGY METHOD 11/08/2024 1:33 PM EDT [facility] MPV 9.7 8.8 - 12.5 fL LAB HEMATOLOGY METHOD 11/08/2024 1:33 PM EDT [facility] nRBC 0.0 <=0.0 per 100 WBCs LAB HEMATOLOGY METHOD 11/08/2024 1:33 PM EDT [facility] Differential Type Automated LAB HEMATOLOGY METHOD 11/08/2024 1:33 PM EDT [facility] Neutrophils % 84 % LAB HEMATOLOGY METHOD 11/08/2024 1:33 PM EDT [facility] Lymphocytes % 7 % LAB HEMATOLOGY METHOD 11/08/2024 1:33 PM EDT [facility] Monocytes % 7 % LAB HEMATOLOGY METHOD 11/08/2024 1:33 PM EDT [facility] Eosinophils % 1 % LAB HEMATOLOGY METHOD 11/08/2024 1:33 PM EDT [facility] Basophils % 0 % LAB HEMATOLOGY METHOD 11/08/2024 1:33 PM EDT [facility] Immature Granulocytes % 1 % LAB HEMATOLOGY METHOD 11/08/2024 1:33 PM EDT [facility] Neutrophils Absolute 11.14(H) 1.60 - 6.10 10*3/uL LAB HEMATOLOGY METHOD 11/08/2024 1:33 PM EDT [facility] Lymphocytes Absolute 0.97(L) 1.20 - 3.90 10*3/uL LAB HEMATOLOGY METHOD 11/08/2024 1:33 PM EDT [facility] Monocytes Absolute 0.92(H) 0.30 - 0.90 10*3/uL LAB HEMATOLOGY METHOD 11/08/2024 1:33 PM EDT [facility] Eosinophils Absolute 0.11 0.00 - 0.50 10*3/uL LAB HEMATOLOGY METHOD 11/08/2024 1:33 PM EDT [facility] Basophils Absolute 0.05 0.00 - 0.10 10*3/uL LAB HEMATOLOGY METHOD 11/08/2024 1:33 PM EDT [facility] Immature Granulocytes Absolute 0.14(H) 0.00 - 0.06 10*3/uL LAB HEMATOLOGY METHOD 11/08/2024 1:33 PM EDT [facility] Blood Venous blood specimen / Unknown Venipuncture / Unknown 11/08/2024 1:12 PM EDT 11/08/2024 1:25 PM [facility] 11/08/[facility] 1:33 PM EDT Therapeutic decision making should be based on absolute values, rather than percentages. us Long Rios MD LAB BLOOD ORDERABLES Final R esult Performing Organization Address [facility]/ZIP Co de Phone Number [facility] [address] [place] [address] * (ABNORMAL) BNP (11/08/2024 1:12 PM EDT) N-Terminal, PROBNP, Plasma 523(H) 0 - 449 pg/mL 11/08/2024 1:55 PM EDT [facility] Blood Venous blood specimen / Unknown Venipuncture / Unknown 11/08/2024 1:12 PM EDT 11/08/2024 1:25 PM EDT us Long Rios MD LAB BLOOD ORDERABLES Final R esult Performing Organization Address [facility]/ZIP Co de Phone Number [facility] [address] [place] [address] * (ABNORMAL) Troponin now and 120 min (11/08/2024 1:12 PM EDT) Troponin T, High Sensitivity, 0 Hour 14(H) <14 ng/L 11/08/2024 1:55 PM EDT [facility] Blood Venous blood specimen / Unknown Venipuncture / Unknown 11/08/2024 1:12 PM EDT 11/08/2024 1:25 PM EDT us Long Rios MD LAB BLOOD ORDERABLES Final R esult Performing Organization Address [facility]/ZIP Co de Phone Number [facility] [address] [place] [address] * (ABNORMAL) CMP (11/08/2024 1:12 PM EDT) Glucose, Plasma 106(H) 74 - 99 mg/dL 11/08/2024 1:55 PM EDT [facility] BUN, Plasma 20 7 - 21 mg/dL 11/08/2024 1:55 PM EDT [facility] Creatinine, Plasma 1.64(H) 0.60 - 1.10 mg/dL 11/08/2024 1:55 PM EDT [facility] BUN/Creatinine Ratio 12 11/08/2024 1:55 PM EDT [facility] Sodium, Plasma 140 136 - 145 mmol/L 11/08/2024 1:55 PM EDT [facility] Potassium, Plasma 3.2(L) 3.6 - 4.9 mmol/L 11/08/2024 1:55 PM EDT [facility] Comment:Hemolyzed, result ma y be falsely increased. Chloride, Plasma 108(H) 97 - 107 mmol/L 11/08/2024 1:55 PM EDT [facility] CO2, Plasma 18(L) 22 - 29 mmol/L 11/08/2024 1:55 PM EDT [facility] Anion Gap 14 6 - 16 mmol/L 11/08/2024 1:55 PM EDT [facility] Total Calcium, Plasma 7.6(L) 8.9 - 10.2 mg/dL 11/08/2024 1:55 PM EDT [facility] Total Protein 6.2(L) 6.3 - 7.9 g/dL 11/08/2024 1:55 PM EDT [facility] Albumin, Plasma 2.6(L) 3.5 - 5.2 g/dL 11/08/2024 1:55 PM EDT [facility] AST, Plasma 62(H) 10 - 35 U/L 11/08/2024 1:55 PM EDT [facility] Comment:Hemolyzed, result ma y be falsely increased. ALT, Plasma 22 10 - 35 U/L 11/08/2024 1:55 PM EDT [facility] Alkaline Phosphatase, Plasma 231(H) 35 - 104 U/L 11/08/2024 1:55 PM EDT [facility] Total Bilirubin, Plasma 1.0 0.2 - 1.1 mg/dL 11/08/2024 1:55 PM EDT [facility] eGFRcr 38.9 mL/min/1.7 3m*2 11/08/2024 1:55 PM EDT [facility] Comment:Reported eGFRcr in m L/min/1.73m2 is based the CKD-EPI 2020 equation that does not use a race coefficient. Blood Venous blood specimen / Unknown Venipuncture / Unknown 11/08/2024 1:12 PM EDT 11/08/2024 1:25 PM EDT us Long Rios MD LAB BLOOD ORDERABLES Final R esult Performing Organization Address [facility]/ZIP Co de Phone Number [facility] [address] [place] [address] * EKG now - STAT (adult) (11/08/2024 11:25 AM EDT) EKG DIAGNOSIS CLASS Borderline Abnormal MUSE ECG Ventricular Rate 94 BPM MUSE ECG Atrial Rate 94 BPM MUSE ECG MI Interval 128 ms MUSE ECG QRSD Interval 100 ms MUSE ECG QT Interval 364 ms MUSE ECG QTC Interval 455 ms MUSE ECG P Baker 65 degrees MUSE ECG R Baker 11 degrees MUSE ECG T Wave Baker 8 degrees MUSE ECG Diagnosis Normal sinus rhythm MUSE ECG Diagnosis RSR' V1, is likely a normal variant MUSE ECG Diagnosis Borderline ECG MUSE ECG Diagnosis MUSE ECG Diagnosis Confirmed by Yovani Liu ([id number]) on 11/09/2024 9:56:32 AM MUSE ECG 11/08/2024 11:2 5 AM EDT 11/09/2024 9:56 AM EDT us Long Rios MD ECG ORDERABLES Final Result Performing Organization Address [facility] Co de Phone Number MUSE ECG documented [...] nausea, vomiting 0838 (Given - Provider: May Fitpzatrick RN) 1252 (See Alternative - Provider: Leyda [...] documented as of this encounter Care Teams Prepress Proofer Relationship Specialty Start Date End Date P[place], [place] [address] PCP - General Family Medicine 06/16/23 documented as of this encounter
--- OUTSIDE RECORDS SUMMARY | 2024-11-17 13:26 | XMS_ITS | Encounter Summary ---
Author Organization [facility] Address [address] [place] [address] Care Team Providers Care Network Support Engineer Name Role Phone Pcp, No Primary Care Provider Unavailabl e Reason for Referral * Imaging (Routine) - Closed Specialty Diagnoses / Procedures Referred By Dung chang Referred To Contact Radiology Diagnoses Metastasis to liver Procedures IR Embolization Tumor or Ischemia or Infarction Franko Nava MD [address] [place] [address] Phone: tel: fax: Referral ID Status Reason Start Date Expiration Date Visits Re quested Visits Authorized [id number] Closed 11/14/2024 05/16/2026 1 1 Reason for Visit * Reason Comments Vomiting * Auth/Cert (Routine) Specialty Diagnoses / Procedures Referred By Dung chang Referred To Contact Diagnoses RUQ abdominal pain Vinicius Love MD [address] [facility] [address] [place] [address] Phone: tel: fax: PAV A Emergency Department [address] [place] [address] Phone: tel: Referral ID Status Reason Start Date Expiration Date Visits Re quested Visits Authorized [id number] 1 1 Encounter Details Date Type Department Care Team (Late st Contact Info) Description 11/17/2024 1:26 PM EDT - 11/21/2024 10:43 AM EDT Hospital Encounter P[facility] A Inpatient [facility] [address] [place] [phone] Elisabeth Hernandez MD [address] [place] [address] Vinicius Love MD [address] [place] [address] RUQ abdominal pain (Primary Dx); [...] any time in the past 12 [address] [place], were you homeless or living in a mcc (including now)? No 11/18/2024 [facility] Utilities Answer Date Recorded In the past [...] drink first t nicolas in the morning (EYE-CARTON FORMING MACHINE TENDER) to steady your nerves or to get [...] - 11/17/2024 3:36 PM EDT Call MD alteration hand for GYO service if: - you have a fever of 100.4 F or more - vaginal bleeding similar to a period - uncontrolled pain - difficulty with urination - persistent nausea/vomiting Follow up: Dr. Vinicius Love - [facility] [address], [address], [place] [address] documented in this encounter Medications at Time [...] from the original note were not included. [id number] Pantoprazole WHY is this medicine prescribed? Pantoprazole [...] or doctor for a copy of the trimming machine operator's information for the patient. Are there [...] and out of their sight and reach. [email or web address]://www.[employer] Dispose of unneeded medications in a way [...] be awakened, immediately call emergency services at 731. What OTHER INFORMATION should I know? Keep [...] of all of the prescription and nonprescription (rrxx-fma-msoddbn) medicines, vitamins, minerals, and dietary supplements you [...] or pharmacist about specific clinical use. The [employer] [employer] represents that the information provided hereunder was formulated with a reasonable standard of care, and in conformity with professional standards in the field. The [employer] makes no representations or warranties, express or implied, including, but not limited to, any implied warranty of merchantability and/or fitness for a particular purpose, with respect to such information and specifically disclaims all such warranties. Users are advised that decisions regarding drug therapy are complex medical decisions requiring the independent, informed decision of an appropriate health director of critical care, and the information is provided for informational purposes only. The entire monograph for a drug should be reviewed for a thorough understanding of the drug's actions, uses and side effects. The [employer] does not endorse or recommend the use of any drug.The information is not a substitute for medical care. AHFS?? Patient Medication Information?. ?? Copyright, 2023. The [employer]??, [address], [address], [place], [place]. All Rights Reserved. Duplication for commercial use must be authorized by [facility]. Selected Revisions: January 24, 2023. AHFS?? Patient Medication Information?. ?? Copyright, 2024 * Ismael [facility] - Kim Black RN - 11/21/2024 8:57 AM EDT Images from the original note were not included. [id number] Ondansetron WHY is this medicine prescribed? Ondansetron [...] and out of their sight and reach. [email or web address]://www.[employer]org Dispose of unneeded medications in a way [...] be awakened, immediately call emergency services at 834. Symptoms of overdose may include: ? sudden [...] of all of the prescription and nonprescription (bszi-vvg-gfrpsru) medicines, vitamins, minerals, and dietary supplements you [...] or pharmacist about specific clinical use. The [place] [employer] represents that the information provided hereunder was formulated with a reasonable standard of care, and in conformity with professional standards in the field. The [place] makes no representations or warranties, express or implied, including, but not limited to, any implied warranty of merchantability and/or fitness for a particular purpose, with respect to such information and specifically disclaims all such warranties. Users are advised that decisions regarding drug therapy are complex medical decisions requiring the independent, informed decision of an appropriate health director of critical care, and the information is provided for informational purposes only. The entire monograph for a drug should be reviewed for a thorough understanding of the drug's actions, uses and side effects. The [employer] does not endorse or recommend the use of any drug.The information is not a substitute for medical care. AHFS?? Patient Medication Information?. ?? Copyright, 2023. The [employer]??, [address], [address], [place], [place]. All Rights Reserved. Duplication for commercial use must be authorized by [facility]. Selected Revisions: September 29, 2023. AHFS?? Patient Medication Information?. ?? Copyright, 2024 * Ismael [facility] - Kim Black RN - 11/21/2024 8:57 AM EDT Images from the original note were not included. [id number] Magnesium Oxide WHY is this medicine prescribed? [...] of all of the prescription and nonprescription (yowb-txd-hpcefml) medicines, vitamins, minerals, and dietary supplements you [...] or pharmacist about specific clinical use. The [place] represents that the information provided hereunder was formulated with a reasonable standard of care, and in conformity with professional standards in the field. The [place] [employer] makes no representations or warranties, express or implied, including, but not limited to, any implied warranty of merchantability and/or fitness for a particular purpose, with respect to such information and specifically disclaims all such warranties. Users are advised that decisions regarding drug therapy are complex medical decisions requiring the independent, informed decision of an appropriate health director of critical care, and the information is provided for informational purposes only. The entire monograph for a drug should be reviewed for a thorough understanding of the drug's actions, uses and side effects. The [place] [employer] does not endorse or recommend the use of any drug.The information is not a substitute for medical care. AHFS?? Patient Medication Information?. ?? Copyright, 2023. The [employer]??, [address], [address], [place], [place]. All Rights Reserved. Duplication for commercial use must be authorized by [facility]. Selected Revisions: August 30, 2023. AHFS?? Patient Medication Information?. ?? Copyright, 2024 * [facility] - Kim Black RN - 11/21/2024 8:56 AM EDT Images from the original note were not included. [id number] Abdominal Pain Abdominal pain means pain in [...] All medicines you take, both prescription and qjch-rir-ickkaqe ? What vitamins, herbs, and other supplements [...] again, start lightly. Eat small amounts of ixzf-pl-qafokb, low-fat foods. These include applesauce, toast, or [...] bed. Last Reviewed Date: 2023 00:00:00 ?? [id number] [employer]. All rights reserved. This information is not intended as a substitute for professional medical care. Always follow your healthcare professional's instructions. * Discharge Instr - Other Orders - Kim Black RN - 11/21/2024 8:56 AM EDT If you need to contact your doctors after hours, please call [phone] and ask for the doctor brittany for [facility]-PAPERHANGER AND PAINTER Oncology. * Discharge Summary - Maggie Nguyen MD - 11/21/2024 8:21 AM EDT Images from the original note were not included. DISCHARGE SUMMARY Hospitalization Admit Date/Time: 11/17/2024 1:26 PM Admitting Attending: Vinicius Love Discharge Date: 11/21/2024 Discharge Attending Physician: Vinicius Love MD PCP name and Address: Pcp, Saloni [facility] [address] Referring provider name and address: No referring provider defined for this encounter. Chief Concern, Brief History of Present Illness, and Hospital Course Radha Aparicio is a 44 y.o. with high grade endometroid adenocarcinoma who presented with n/v and loose stools and was admitted on 11/17. RUQ US showed gallbladder thickening concerning for cholecystitis. Patient was made NPO and underwent Gadsden embolization of liver mass and liver mass [...] MD in 1 week. Surgeries and Procedures Gadsden embolization of liver mass with liver mass [...] Your Medications These medications were sent to [facility] - [place], [place] - 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 Vinicius Love - [facility] [address], [address], [place] [address] Outpatient Follow-Up Future Appointments Date Time Provider [...] am with associated diarrhea - Labs H 59-34-3f-19-94-7q-26-22-1u P 308-220-249 W 38-1-91-15-13 Lipase 14 - RUQ US 11/17: cholelithiasis w/ gallbladder wall thickening c/f cholecystitis. Redemonstrated largeintraparenchymal liver mass. Few punctate nonobstructive renal calculi in R kidney, no hydro - PE: +Camden sign, no signs of acute peritonitis - [...] biopsy with IR on 11/18 - AST [id number] ALT [phone] - T. Bili 0.7-0.7 - discussed with [...] per chart review) with Dr. Veloz at [facility] - Lost to follow up due [...] several large liver lesions (right dome -- [id number] (enlarged from 4.7 x 4.2) & 10.5 [...] conclusion of chemotherapy) - Care transferred to [facility] 11/10, s/p cefoxitin (11/08-11/10) - s/p liver embolization and biopsy 11/18 - liver biopsy 11/18 positive for malignant carcinoma # FEN/PPX - GIS/HLIV - SCDs/pLov - Replete electrolytes PRN Dispo: Discharge today Please message on-call [facility] resident via [employer] Secure Chat or page [phone] for questions or concerns regarding this patient's [...] Note Radha Aparicio 44 y.o. female CSN: [id number] Admission: 11/17/2024 1:26 PM Primary Problem: RUQ abdominal pain Primary Blacking Wheel Tender: Primary Caregiver: Self Assistance Available at Discharge: aunt Clara and Jennifer Current Outpatient/Agency/Support Group: clinic(s) Availability of Care Givers (#Hours): 24 hours Family/Blacking Wheel Tender(s) Willingness Assessed to care for patient at home: Yes Family/Blacking Wheel Tender(s) Readiness Assessed to care for patient at home: Yes Housing Circumstances-Z Codes: Housing Circumstances (select all that apply): Low Income (101-300% Federal Poverty Guidlines) - Z596 Discharge Facility/Level of Care Needs: Discharge Facility/Level of Care Needs: 1-Home or Self Care Patient's Choice of Community Agency(s): [facility] clinic Patient/Family Anticipated Services at Transition: Patient/Family [...] and will provide transport and home assistance. [id number] enrollment complete. Radha Langston RN * Significant [...] cholecystitis. Patient was made NPO and underwent Gadsden embolization of liver mass and liver mass [...] am with associated diarrhea - Labs H 56-84-2n-25-21-1u P 308-220-249 W 12-9-11 Lipase 14 - RUQ US 11/17: cholelithiasis w/ gallbladder wall thickening c/f cholecystitis. Redemonstrated largeintraparenchymal liver mass. Few punctate nonobstructive renal calculi in R kidney, no hydro - PE: +Camden sign, no signs of acute peritonitis - [...] per chart review) with Dr. Veloz at [facility] - Lost to follow up due [...] several large liver lesions (right dome -- [id number] (enlarged from 4.7 x 4.2) & 10.5 [...] management. Please message on-call [facility] resident via [employer] Secure Chat or page [phone] for questions or concerns regarding this patient's [...] from the original note were not included. 01301 Preventing a Surgical Site Infection A risk [...] of infection. ? Controlled body temperature. A mbbww-huxj-leezbd temperature during or after surgery prevents oxygen [...] and water or with an alcohol-based hand application manager before and after caring for you. Don?t [...] away. Last Reviewed Date: 2024 00:00:00 ?? 6274-2518 [employer]. All rights reserved. This information is not intended as a substitute for professional medical care. Always follow your healthcare professional's instructions. * Ismael [facility] - Erika Sawyer RN - 11/19/2024 9:24 AM EDT Images from the original note were not included. 53191 HIDA Scan A HIDA (hepatobiliary iminodiacetic acid [...] you?re taking. This includes vitamins, herbs, and eucu-gnn-hwpcdop medicines. You may be told to stop [...] is done by a nuclear medicine or magnetic resonance technologist. It can be done in a [...] tracer Last Reviewed Date: 2022 00:00:00 ?? 3480-5365 [employer]. All rights reserved. This information is not intended as a substitute for professional medical care. Always follow your healthcare professional's instructions. * Ismael Velázquez - Erika Sawyer RN - 11/19/2024 9:24 AM EDT Images from the original note were not included. 304017bs Possible Gallstone with Biliary Colic (Presumed) Your [...] rate Last Reviewed Date: 2021 00:00:00 ?? 0599-8955 [employer]. All rights reserved. This information is not intended as a substitute for professional medical care. Always follow your healthcare professional's instructions. * Ismael Velázquez - Erika Sawyer RN - 11/19/2024 9:24 AM EDT Images from the original note were not included. 21611 Cholecystectomy You?ve had painful attacks caused by [...] medicines you take. Include both prescription and ueqy-qpe-oicmqvv medicines. Also include vitamins, herbs, and supplements. [...] time Last Reviewed Date: 2023 00:00:00 ?? 4852-8281 [employer]. All rights reserved. This information is not [...] the video go to this web address: [email or web address] Or, scan this QR code with your smart phone ?? [facility] * Consults - Shruthi Espitia RD - 11/19/2024 8:26 AM EDT Adult Nutrition Evaluation Note Radha Aparicio 44 y.o. female CSN: [id number] Room/Bed 140/140A Nutrition evaluation type: assessment Reason [...] 2 (BMI 35-39.9) Weight History: UBW ~245# [place] Body Weight (kg): 65.9 Percent [place] Body Weight: 174 Estimated Needs: Current Nutrition [...] in R kidney, no hydro - PE: +Camden sign, no signs of acute peritonitis - [...] per chart review) with Dr. Veloz at [facility] - Lost to follow up due [...] several large liver lesions (right dome -- [id number] (enlarged from 4.7 x 4.2) & 10.5 [...] conclusion of chemotherapy) - Care transferred to [facility] 11/10, s/p cefoxitin (11/08-11/10) - s/p liver embolization and biopsy 11/18 Plan: - f/up biopsy results # FEN/PPX - NPO/LR @ 75 - SCDs/hold plov in setting of hemorrhagic liver lesions - Replete electrolytes PRN Dispo: Continue inpatient management. Please message on-call [facility] resident via [employer] Secure Chat or page [phone] for questions or concerns regarding this patient's [...] Note Radha Aparicio 44 y.o. female CSN: [id number] Admission: 11/17/2024 1:26 PM Primary Problem: RUQ abdominal pain Sander And Polisher reviewed chart and spoke with patient to complete this Initial Case Management Assessment. PCP: Dr. Benny Gonzalez Emergency Contact: Extended Emergency Contact Information Primary Emergency Contact: Kaushal Aparicio Mobile Relation: Brother Preferred language: Slovenian Audit Intern needed? No Secondary Emergency Contact: Irish Joiner Mobile Relation: Daughter Insurance: Primary Visit Coverage Payer Plan Sponsor Code Group Number Group Name [employer] [facility] MEDICAID . Primary Visit Coverage Subscriber Subscriber ID Subscriber Name Subscriber SSN Subscriber Address [id number] RADHA APARICIO [id number] [place] [address] Patient information: re-admit to with high grade endometrioid adenocarcinoma and persistent n/v/diarrhea and ab pain c/f cholecystitis. Patient reports doing well on pain and nausea regimen since discharge 11/12 Nausea and vomiting started 9/8 am with associated diarrhea. Home address and insurance confirmed. Reports good support from family and home assistance and transport. Daily Living Activities: independent [address] [place] [address] Current DME: none reported. Income Information: unemployed Income meets expenses. Housing Circumstances-Z Codes: low income 101-300% Federal Poverty Guideline Patient Referred to: n/a Anticipated Discharge Date: 2-4 day Patient's Discharge Goal: home Assistance Available at Discharge: self/family Discharge Transport: family Follow Up Transport: family Home Health / Home Infusion / Outpatient Dialysis Services: none reported Living Will/Advance Directive/Power of Patient Care Coordinator /Guardian: none reported Have you reviewed your [...] also pertinent to this visit. Planned Procedure: Gadsden embolization of liver mass with liver mass [...] been discussed with the patient and/or their contracts representative. All questions answered and they agree [...] in R kidney, no hydro - PE: +Camden sign, no signs of acute peritonitis - [...] per chart review) with Dr. Veloz at [facility] - Lost to follow up due [...] several large liver lesions (right dome -- [id number] (enlarged from 4.7 x 4.2) & 10.5 [...] management. Please message on-call [facility] resident via [employer] Secure Chat or page [phone] for questions or concerns regarding this patient's [...] that would be needed Recommend admission to loop drier operator onc vs medicine EGS will continue to follow * H&P - Rebekah Kwan MD - 11/17/2024 4:08 PM EDT Gynecologic Oncology History and Physical Patient Name: Radha Aparicio : 1980 Date of Admission: 11/17/24 Chief Concern: Chief Complaint Patient presents with Vomiting Primary Oncologist: Dr. Vinicius Love/Dr. Veloz ([place]) Subjective Subjective History of Present Illness: Radha [...] no distension. Tenderness: Tenderness: TTP of RUQ, +Camden sign. There is no guarding or rebound. [...] in R kidney, no hydro - PE: +Camden sign, no signs of acute peritonitis - [...] per chart review) with Dr. Veloz at [facility] - Lost to follow up due [...] several large liver lesions (right dome -- [id number] (enlarged from 4.7 x 4.2) & 10.5 [...] acute Please message on-call [facility] resident via [employer] Secure Chat or page [phone] for questions or concerns regarding this patient's care. Rebekah FLORES PGY-1 *1953 [1] Past Medical History: Diagnosis Date Disease of salivary gland, unspecified Parotid mass [2] Past Surgical History: Procedure Laterality Date HYSTERECTOMY N/A Hysterectomy from [facility] TUBAL LIGATION N/A Tubal ligation from [facility] [3] Family History Problem Relation [...] Social Connections: Unknown (12/17/2022) Received from [facility] Family and Community Support Help with Day-to-Day [...] hysterectomy in 2018 along with chemo from 5873-9635) that previously saw the GYO team and was lost to follow up who recently was admitted with concern for RUQ pain, with recent admission when noted tohave worsening mets to liver and spleen with further workup pending and negative cholecystitis concern presenting to [facility] on 11/17/2024 with recurrent RUQ symptoms. RUQ [...] that would be needed Recommend admission to loop drier operator onc vs medicine EGS will continue to [...] (BMI 30-39.9) Dispo: Admit to medicine vs loop drier operator onc CODE STATUS: not specified This Consult, [...] and urinary symptoms. History provided by: Patient stone rigger used: No I have reviewed and agree [...] and Affect: Mood normal. Behavior: Behavior normal. [place] Coma Scale Score: 15 ED Course & [...] evaluate [RM] 1636 EGS rec: admission to loop drier operator onc vs medicine. recommend HIDA scan to further evaluate if there isconcern for cholecystitis before considering risks and benefits of any intervention that would be needed based on that [PA] 1731 [facility] to admit patient to their team. [...] admission for the listed diagnoses. The [facility] PAPERHANGER AND PAINTER service wasconsulted for admission and was agreeable to admit to Acute Floor (Med/Surg). ED Prescriptions None Disposition Admit Admitting/Attending Physician: VINICIUS LOVE [[id number]] Provider Care Team: [facility] ONCOLOGY [[id number]] Are they the primary team?: [...] EST Appointment [facility] Radiology [address] [place] [id number] 03/19/2025 1:45 PM EST Office Visit [facility] Gynecology [address] [place] [address] Vinicius Love MD [address] [place] [address] Pending Results Name Type Priority [...] - 4.5 mg/dL 11/21/2024 5:27 AM EDT [facility] Blood Venous blood specimen / Unknown Venipuncture / Unknown 11/21/2024 3:19 AM EDT 11/21/2024 3:27 AM EDT us Vinicius Love MD LAB BLOOD ORDERABLES Final Re sult Performing Organization Address City/[facility]/[place] [address] * (ABNORMAL) Magnesium (11/21/2024 3:19 AM EDT) Magnesium, Plasma 1.6(L) 1.9 - 2.4 mg/dL 11/21/2024 3:58 AM EDT [facility] Blood Venous blood specimen / Unknown Venipuncture / Unknown 11/21/2024 3:19 AM EDT 11/21/2024 3:27 AM EDT us Vinicius Love MD LAB BLOOD ORDERABLES Final Re sult Performing Organization Address [facility] [place] [address] * (ABNORMAL) IONIZED CALCIUM, SERUM (11/21/2024 3:19 AM EDT) Ionized Calcium, Serum 4.5(L) 4.6 - 5.3 mg/dL LAB HEMATOLOGY METHOD 11/21/2024 3:53 AM EDT [facility] Blood Venous blood specimen / Unknown Venipuncture / Unknown 11/21/2024 3:19 AM EDT 11/21/2024 3:27 AM EDT us Vinicius Love MD LAB BLOOD ORDERABLES Final Re sult Performing Organization Address City/[facility]/[place]IP [place] [address] * (ABNORMAL) Comprehensive metabolic panel (11/21/2024 3:19 AM EDT) [facility] Glucose, Plasma 116(H) 74 - 99 mg/dL 11/21/2024 3:58 AM EDT [facility] BUN, Plasma 11 7 - 21 mg/dL 11/21/2024 3:58 AM EDT [facility] Creatinine, Plasma 0.77 0.60 - 1.10 mg/dL 11/21/2024 3:58 AM EDT [facility] BUN/Creatinine Ratio 14 11/21/2024 3:58 AM EDT [facility] Sodium, Plasma 137 136 - 145 mmol/L 11/21/2024 3:58 AM EDT [facility] Potassium, Plasma 3.4(L) 3.6 - 4.9 mmol/L 11/21/2024 3:58 AM EDT [facility] Chloride, Plasma 103 97 - 107 mmol/L 11/21/2024 3:58 AM EDT [facility] CO2, Plasma 21(L) 22 - 29 mmol/L 11/21/2024 3:58 AM EDT [facility] Anion Gap 13 6 - 16 mmol/L 11/21/2024 3:58 AM EDT [facility] Total Calcium, Plasma 7.9(L) 8.9 - 10.2 mg/dL 11/21/2024 3:58 AM EDT [facility] Total Protein 5.7(L) 6.3 - 7.9 g/dL 11/21/2024 3:58 AM EDT [facility] Albumin, Plasma 2.4(L) 3.5 - 5.2 g/dL 11/21/2024 3:58 AM EDT [facility] AST, Plasma 188(H) 10 - 35 U/L 11/21/2024 3:58 AM EDT [facility] ALT, Plasma 167(H) 10 - 35 U/L 11/21/2024 3:58 AM EDT [facility] Alkaline Phosphatase, Plasma 505(H) 35 - 104 U/L 11/21/2024 3:58 AM EDT [facility] Total Bilirubin, Plasma 1.0 0.2 - 1.1 mg/dL 11/21/2024 3:58 AM EDT [facility] eGFRcr 96.5 mL/min/1.7 3m*2 11/21/2024 3:58 AM EDT [facility] Comment:Reported eGFRcr in m L/min/1.73m2 is based the CKD-EPI 2020 equation that does not use a race coefficient. Blood Venous blood specimen / Unknown Venipuncture / Unknown 11/21/2024 3:19 AM EDT 11/21/2024 3:27 AM EDT us Vinicius Love MD LAB BLOOD ORDERABLES Final Re sult [facility] [address] [place] [address] * (ABNORMAL) CBC W/O Differential (11/21/2024 3:19 AM EDT) WBC Count 12.55(H) 3.70 - 10.30 10*3/uL LAB HEMATOLOGY METHOD 11/21/2024 3:35 AM EDT [facility] RBC Count 2.70(L) 3.90 - 5.20 10*6/uL LAB HEMATOLOGY METHOD 11/21/2024 3:35 AM EDT [facility] HGB 7.3(L) 11.2 - 15.7 g/dL LAB HEMATOLOGY METHOD 11/21/2024 3:35 AM EDT [facility] HCT 22.1(L) 34.0 - 45.0 % LAB HEMATOLOGY METHOD 11/21/2024 3:35 AM EDT [facility] Platelet Count 236 155 - 369 10*3/uL LAB HEMATOLOGY METHOD 11/21/2024 3:35 AM EDT [facility] MCV 82 79 - 98 fL LAB HEMATOLOGY METHOD 11/21/2024 3:35 AM EDT [facility] MCH 27.0 26.0 - 32.0 pg LAB HEMATOLOGY METHOD 11/21/2024 3:35 AM EDT [facility] MCHC 33.0 30.7 - 35.5 g/dL LAB HEMATOLOGY METHOD 11/21/2024 3:35 AM EDT [facility] RDW 16.0(H) 11.5 - 14.5 % LAB HEMATOLOGY METHOD 11/21/2024 3:35 AM EDT [facility] MPV 9.7 8.8 - 12.5 fL LAB HEMATOLOGY METHOD 11/21/2024 3:35 AM EDT [facility] nRBC 0.0 <=0.0 per 100 WBCs LAB HEMATOLOGY METHOD 11/21/2024 3:35 AM EDT [facility] Blood Venous blood specimen / Unknown Venipuncture / Unknown 11/21/2024 3:19 AM EDT 11/21/2024 3:28 AM EDT us Vinicius Love MD LAB BLOOD ORDERABLES Final Re sult [facility] [address] [place] [address] * (ABNORMAL) Comprehensive metabolic panel (11/20/2024 12:42 PM EDT) Glucose, Plasma 119(H) 74 - 99 mg/dL 11/20/2024 1:49 PM EDT [facility] BUN, Plasma 13 7 - 21 mg/dL 11/20/2024 1:49 PM EDT [facility] Creatinine, Plasma 0.79 0.60 - 1.10 mg/dL 11/20/2024 1:49 PM EDT [facility] BUN/Creatinine Ratio 16 11/20/2024 1:49 PM EDT [facility] Sodium, Plasma 135(L) 136 - 145 mmol/L 11/20/2024 1:49 PM EDT [facility] Potassium, Plasma 3.8 3.6 - 4.9 mmol/L 11/20/2024 1:49 PM EDT [facility] Chloride, Plasma 103 97 - 107 mmol/L 11/20/2024 1:49 PM EDT [facility] CO2, Plasma 20(L) 22 - 29 mmol/L 11/20/2024 1:49 PM EDT [facility] Anion Gap 12 6 - 16 mmol/L 11/20/2024 1:49 PM EDT [facility] Total Calcium, Plasma 8.1(L) 8.9 - 10.2 mg/dL 11/20/2024 1:49 PM EDT [facility] Total Protein 6.3 6.3 - 7.9 g/dL 11/20/2024 1:49 PM EDT [facility] Albumin, Plasma 2.7(L) 3.5 - 5.2 g/dL 11/20/2024 1:49 PM EDT [facility] AST, Plasma 442(H) 10 - 35 U/L 11/20/2024 1:49 PM EDT [facility] ALT, Plasma 254(H) 10 - 35 U/L 11/20/2024 1:49 PM EDT [facility] Alkaline Phosphatase, Plasma 513(H) 35 - 104 U/L 11/20/2024 1:49 PM EDT [facility] Total Bilirubin, Plasma 1.1 0.2 - 1.1 mg/dL 11/20/2024 1:49 PM EDT [facility] eGFRcr 93.6 mL/min/1.7 3m*2 11/20/2024 1:49 PM EDT [facility] Comment:Reported eGFRcr in m L/min/1.73m2 is based the CKD-EPI 2020 equation that does not use a race coefficient. Blood Venous blood specimen / Unknown Venipuncture / Unknown 11/20/2024 12:42 PM EDT 11/20/2024 1:11 PM EDT us Vinicius Love MD LAB BLOOD ORDERABLES Final Re sult [facility] [address] [place] [address] * (ABNORMAL) CBC W/O Differential (11/20/2024 12:42 PM EDT) WBC Count 15.25(H) 3.70 - 10.30 10*3/uL LAB HEMATOLOGY METHOD 11/20/2024 1:23 PM EDT [facility] RBC Count 3.09(L) 3.90 - 5.20 10*6/uL LAB HEMATOLOGY METHOD 11/20/2024 1:23 PM EDT [facility] HGB 8.5(L) 11.2 - 15.7 g/dL LAB HEMATOLOGY METHOD 11/20/2024 1:23 PM EDT [facility] HCT 25.5(L) 34.0 - 45.0 % LAB HEMATOLOGY METHOD 11/20/2024 1:23 PM EDT [facility] Platelet Count 292 155 - 369 10*3/uL LAB HEMATOLOGY METHOD 11/20/2024 1:23 PM EDT [facility] MCV 83 79 - 98 fL LAB HEMATOLOGY METHOD 11/20/2024 1:23 PM EDT [facility] MCH 27.5 26.0 - 32.0 pg LAB HEMATOLOGY METHOD 11/20/2024 1:23 PM EDT [facility] MCHC 33.3 30.7 - 35.5 g/dL LAB HEMATOLOGY METHOD 11/20/2024 1:23 PM EDT [facility] RDW 15.9(H) 11.5 - 14.5 % LAB HEMATOLOGY METHOD 11/20/2024 1:23 PM EDT [facility] MPV 9.7 8.8 - 12.5 fL LAB HEMATOLOGY METHOD 11/20/2024 1:23 PM EDT [facility] nRBC 0.0 <=0.0 per 100 WBCs LAB HEMATOLOGY METHOD 11/20/2024 1:23 PM EDT [facility] Blood Venous blood specimen / Unknown Venipuncture / Unknown 11/20/2024 12:42 PM EDT 11/20/2024 1:06 PM EDT Vinicius Love MD LAB BLOOD ORDERABLES Final Re sult [facility] [address] [place] [address] * Transfuse RBC (11/20/2024 10:47 AM EDT) us Vinicius Love MD BLOOD TRANSFUSION ORDERABLES Final Result * Transfuse RBC: 1 Units (11/20/2024 10:47 AM EDT) us Vinicius Love MD BLOOD TRANSFUSION ORDERABLES Final Result * Prepare Leukocyte Reduced RBC: 1 Units (11/20/2024 5:27 AM EDT) Product Code [id number] CH BLOO D BANK Dispense Status Transfused BLOOD BANK Blood Expiration Date [id number] BLOOD BANK Unit Number [id number] CH B LOOD BANK Product Blood Type 5100 BLOOD BANK Blood Type O+ CH BLOOD BANK Crossmatch Compatible BLOOD BANK Other Vinicius Love MD BLOOD BANK PRODUCT ORDERABLES Final Result Performing Organization Address City/[facility]/ZIP Co de Phone Number BLOOD BANK [address] * Prepare Leukocyte Reduced RBC: 1 Units (11/20/2024 4:53 AM EDT) Product Code [id number] BLOO D BANK Dispense Status Transfused BLOOD BANK Blood Expiration Date [id number] BLOOD BANK Unit Number [id number] B LOOD BANK Product Blood Type 5100 BLOOD BANK Blood Type O+ BLOOD BANK Crossmatch Compatible BLOOD BANK Other Vinicius Love MD BLOOD BANK PRODUCT ORDERABLES Final Result Performing Organization Address [facility] Co de Phone Number BLOOD BANK [address] * (ABNORMAL) Magnesium (11/20/2024 2:39 AM EDT) Magnesium, Plasma 1.7(L) 1.9 - 2.4 mg/dL 11/20/2024 4:00 AM EDT [facility] Blood Venous blood specimen / Unknown Venipuncture / Unknown 11/20/2024 2:39 AM EDT 11/20/2024 3:28 AM EDT Vinicius Love MD LAB BLOOD ORDERABLES Final Re sult Performing Organization Address City/[facility]/ZIP Co de Phone Number [facility] [address] [place] [address] * IONIZED CALCIUM, SERUM (11/20/2024 2:39 AM EDT) Ionized Calcium, Serum 4.6 4.6 - 5.3 mg/dL LAB HEMATOLOGY METHOD 11/20/2024 4:06 AM EDT [facility] Blood Venous blood specimen / Unknown Venipuncture / Unknown 11/20/2024 2:39 AM EDT 11/20/2024 3:28 AM EDT us Vinicius Love MD LAB BLOOD ORDERABLES Final Re sult [facility] [address] [place] [address] * (ABNORMAL) Comprehensive metabolic panel (11/20/2024 2:39 AM EDT) Pathologist [facility] Glucose, Plasma 108(H) 74 - 99 mg/dL 11/20/2024 4:17 AM EDT [facility] BUN, Plasma 15 7 - 21 mg/dL 11/20/2024 4:17 AM EDT [facility] Creatinine, Plasma 0.91 0.60 - 1.10 mg/dL 11/20/2024 4:17 AM EDT [facility] BUN/Creatinine Ratio 16 11/20/2024 4:17 AM EDT [facility] Sodium, Plasma 139 136 - 145 mmol/L 11/20/2024 4:17 AM EDT [facility] Potassium, Plasma 3.9 3.6 - 4.9 mmol/L 11/20/2024 4:17 AM EDT [facility] Chloride, Plasma 105 97 - 107 mmol/L 11/20/2024 4:17 AM EDT [facility] CO2, Plasma 22 22 - 29 mmol/L 11/20/2024 4:17 AM EDT [facility] Anion Gap 12 6 - 16 mmol/L 11/20/2024 4:17 AM EDT [facility] Total Calcium, Plasma 8.0(L) 8.9 - 10.2 mg/dL 11/20/2024 4:17 AM EDT [facility] Total Protein 6.0(L) 6.3 - 7.9 g/dL 11/20/2024 4:17 AM EDT [facility] Albumin, Plasma 2.5(L) 3.5 - 5.2 g/dL 11/20/2024 4:17 AM EDT [facility] AST, Plasma 701(H) 10 - 35 U/L 11/20/2024 4:17 AM EDT [facility] ALT, Plasma 326(H) 10 - 35 U/L 11/20/2024 4:17 AM EDT [facility] Alkaline Phosphatase, Plasma 478(H) 35 - 104 U/L 11/20/2024 4:17 AM EDT [facility] Total Bilirubin, Plasma 0.7 0.2 - 1.1 mg/dL 11/20/2024 4:17 AM EDT [facility] eGFRcr 79.0 mL/min/1.7 3m*2 11/20/2024 4:17 AM EDT [facility] Comment:Reported eGFRcr in m L/min/1.73m2 is based the CKD-EPI 2020 equation that does not use a race coefficient. Blood Venous blood specimen / Unknown Venipuncture / Unknown 11/20/2024 2:39 AM EDT 11/20/2024 3:28 AM EDT us Vinicius Love MD LAB BLOOD ORDERABLES Final Re sult [facility] [address] [place] [address] * (ABNORMAL) CBC W/O Differential (11/20/2024 2:39 AM EDT) WBC Count 10.93(H) 3.70 - 10.30 10*3/uL LAB HEMATOLOGY METHOD 11/20/2024 3:40 AM EDT [facility] RBC Count 2.57(L) 3.90 - 5.20 10*6/uL LAB HEMATOLOGY METHOD 11/20/2024 3:40 AM EDT [facility] HGB 6.7(L) 11.2 - 15.7 g/dL LAB HEMATOLOGY METHOD 11/20/2024 3:40 AM EDT [facility] HCT 21.2(L) 34.0 - 45.0 % LAB HEMATOLOGY METHOD 11/20/2024 3:40 AM EDT [facility] Platelet Count 261 155 - 369 10*3/uL LAB HEMATOLOGY METHOD 11/20/2024 3:40 AM EDT [facility] MCV 83 79 - 98 fL LAB HEMATOLOGY METHOD 11/20/2024 3:40 AM EDT [facility] MCH 26.1 26.0 - 32.0 pg LAB HEMATOLOGY METHOD 11/20/2024 3:40 AM EDT [facility] MCHC 31.6 30.7 - 35.5 g/dL LAB HEMATOLOGY METHOD 11/20/2024 3:40 AM EDT [facility] RDW 16.5(H) 11.5 - 14.5 % LAB HEMATOLOGY METHOD 11/20/2024 3:40 AM EDT [facility] MPV 10.1 8.8 - 12.5 fL LAB HEMATOLOGY METHOD 11/20/2024 3:40 AM EDT [facility] nRBC 0.0 <=0.0 per 100 WBCs LAB HEMATOLOGY METHOD 11/20/2024 3:40 AM EDT [facility] Blood Venous blood specimen / Unknown Venipuncture / Unknown 11/20/2024 2:39 AM EDT 11/20/2024 3:24 AM EDT us Vinicius Love MD LAB BLOOD ORDERABLES Final Re sult [facility] [address] [place] [address] * NM Hepatobiliary Scan w Pharm Challenge [...] 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 At [...] 11/19/2024 5:29 PM us Vinicius Love MD [facility] PROCEDURES Final Resul t * Magnesium (11/19/2024 4:11 AM EDT) Magnesium, Plasma 2.0 1.9 - 2.4 mg/dL 11/19/2024 5:24 AM EDT [facility] Blood Venous blood specimen / Unknown Venipuncture / Unknown 11/19/2024 4:11 AM EDT 11/19/2024 4:17 AM EDT us Vinicius Love MD LAB BLOOD ORDERABLES Final Re sult Performing Organization Address [facility] Co de Phone Number [facility] [address] [place] [address] * IONIZED CALCIUM, SERUM (11/19/2024 4:11 AM EDT) Ionized Calcium, Serum 4.7 4.6 - 5.3 mg/dL LAB HEMATOLOGY METHOD 11/19/2024 4:45 AM EDT [facility] Blood Venous blood specimen / Unknown Venipuncture / Unknown 11/19/2024 4:11 AM EDT 11/19/2024 4:17 AM EDT us Vinicius Love MD LAB BLOOD ORDERABLES Final Re sult Performing Organization Address [facility] Co de Phone Number [facility] [address] [place] [address] * (ABNORMAL) Comprehensive metabolic panel (11/19/2024 4:11 AM EDT) Glucose, Plasma 118(H) 74 - 99 mg/dL 11/19/2024 5:24 AM EDT [facility] BUN, Plasma 11 7 - 21 mg/dL 11/19/2024 5:24 AM EDT [facility] Creatinine, Plasma 0.79 0.60 - 1.10 mg/dL 11/19/2024 5:24 AM EDT [facility] BUN/Creatinine Ratio 14 11/19/2024 5:24 AM EDT [facility] Sodium, Plasma 139 136 - 145 mmol/L 11/19/2024 5:24 AM EDT [facility] Potassium, Plasma 4.4 3.6 - 4.9 mmol/L 11/19/2024 5:24 AM EDT [facility] Chloride, Plasma 104 97 - 107 mmol/L 11/19/2024 5:24 AM EDT [facility] CO2, Plasma 20(L) 22 - 29 mmol/L 11/19/2024 5:24 AM EDT [facility] Anion Gap 15 6 - 16 mmol/L 11/19/2024 5:24 AM EDT [facility] Total Calcium, Plasma 8.4(L) 8.9 - 10.2 mg/dL 11/19/2024 5:24 AM EDT [facility] Total Protein 6.9 6.3 - 7.9 g/dL 11/19/2024 5:24 AM EDT [facility] Albumin, Plasma 3.0(L) 3.5 - 5.2 g/dL 11/19/2024 5:24 AM EDT [facility] AST, Plasma 1,474(H) 10 - 35 U/L 11/19/2024 5:24 AM EDT [facility] ALT, Plasma 388(H) 10 - 35 U/L 11/19/2024 5:24 AM EDT [facility] Alkaline Phosphatase, Plasma 321(H) 35 - 104 U/L 11/19/2024 5:24 AM EDT [facility] Total Bilirubin, Plasma 0.7 0.2 - 1.1 mg/dL 11/19/2024 5:24 AM EDT [facility] eGFRcr 93.6 mL/min/1.7 3m*2 11/19/2024 5:24 AM EDT [facility] Comment:Reported eGFRcr in m L/min/1.73m2 is based the CKD-EPI 2020 equation that does not use a race coefficient. Blood Venous blood specimen / Unknown Venipuncture / Unknown 11/19/2024 4:11 AM EDT 11/19/2024 4:17 AM EDT us Vinicius Love MD LAB BLOOD ORDERABLES Final Re sult [facility] [address] [place] [address] * (ABNORMAL) CBC W/O Differential (11/19/2024 4:11 AM EDT) WBC Count 10.74(H) 3.70 - 10.30 10*3/uL LAB HEMATOLOGY METHOD 11/19/2024 4:37 AM EDT [facility] RBC Count 2.90(L) 3.90 - 5.20 10*6/uL LAB HEMATOLOGY METHOD 11/19/2024 4:37 AM EDT [facility] HGB 7.8(L) 11.2 - 15.7 g/dL LAB HEMATOLOGY METHOD 11/19/2024 4:37 AM EDT [facility] HCT 24.5(L) 34.0 - 45.0 % LAB HEMATOLOGY METHOD 11/19/2024 4:37 AM EDT [facility] Platelet Count 249 155 - 369 10*3/uL LAB HEMATOLOGY METHOD 11/19/2024 4:37 AM EDT [facility] MCV 85 79 - 98 fL LAB HEMATOLOGY METHOD 11/19/2024 4:37 AM EDT [facility] MCH 26.9 26.0 - 32.0 pg LAB HEMATOLOGY METHOD 11/19/2024 4:37 AM EDT [facility] MCHC 31.8 30.7 - 35.5 g/dL LAB HEMATOLOGY METHOD 11/19/2024 4:37 AM EDT [facility] RDW 16.1(H) 11.5 - 14.5 % LAB HEMATOLOGY METHOD 11/19/2024 4:37 AM EDT [facility] MPV 10.1 8.8 - 12.5 fL LAB HEMATOLOGY METHOD 11/19/2024 4:37 AM EDT [facility] nRBC 0.0 <=0.0 per 100 WBCs LAB HEMATOLOGY METHOD 11/19/2024 4:37 AM EDT [facility] Blood Venous blood specimen / Unknown Venipuncture / Unknown 11/19/2024 4:11 AM EDT 11/19/2024 4:17 AM EDT us Vinicius Love MD LAB BLOOD ORDERABLES Final Re sult [facility] [address] [place] [address] * Surgical Pathology Exam (11/18/2024 3:57 PM EDT) Case Report Surgical Pathology Case: [id number] Authorizing Provider: Franko Nava MD Collected: 11/18/2024 [id number] Ordering Location: [facility] [place] Emergency Department Received: 11/18/2024 1620 Pathologist: Geovanny Gomes DO Specimen: Liver 5 5:03 PM EDT [facility] Final Diagnosis LIVER, BIOPSY: - POSITIVE FOR METASTATIC CARCINOMA (SEE COMMENT). 5 5:03 PM EDT [facility] at 1703 EDT Comment The [...] grade endometrioid adenocarcinoma. 5 5:03 PM EDT [facility] Clinical Information mets to the liver 5 5:03 PM EDT [facility] Special and Immunohistochemical Stains IHC: A1-2 CK7: Positive in tumor cells. A1-3 PAX8: Positive in tumor cells. A1-4 ER Non-Quantitative: Positive in tumor cells. All controls show appropriate reactivity. All immunohistochemist ry, in situ hybridization, and histochemical tests were developed by and are performed at the [facility], [address] [place] [address]. All tests reported here, except those addressing [...] negativity on decalcified specimens. 5:03 PM EDT [facility] Gross Description A. LIVER Received in formalin labeled [place] , are multiple red-rosales soft tissue cores measuring from 0.3 cm to 1.5 cm in length and up to 0.1 cm in diameter. Entirely submitted in cassette A1. Cold Time: 0 Ro Mcallister 5:03 PM EDT [facility] Intradepartmental Consultation with Agreement Dr. Fuentes 5:03 PM EDT [facility] Note: A resident was involved in the service. I attest I examined the relevant preparations for the specimens and confirmed the diagnosis or interpretation. 5:03 PM EDT [facility] Tissue Liver structure / Unknown Non-blood Collection / Unknown 11/18/2024 3:57 PM EDT 11/18/2024 4:20 PM EDT us Franko Nava MD LAB PATHOLOGY ORDERABLES Fin al Result [facility] [address] [place] [address] * US Guided Needle Biopsy Liver (11/18/2024 [...] is planned due to possible progression. TECHNIQUE: Advertising Internship: Franko Nava MD Secondary Polymer Engineer: Luis Miguel Estes M.D. Rad Dose: [...] PACS. After standard exchanges, a 0.035 inch IPTEGOson wire was advanced. Access was secured using a 5 F vascular sheath. Using a 5 [place] contra 2 catheter, the celiac axis was [...] intratumoral hemorrhage. [facility] [facility]. Additionally, rebiopsy of liver mass isplanned due to possible progression. TECHNIQUE: Advertising Internship: Franko Nava MD Secondary Polymer Engineer: Luis Miguel Estes M.D. Rad Dose: [...] 5 F vascular sheath. Using a 5 [place] contra 2catheter, the celiac axis was catheterized. [...] 11/20/2024 12:24 PM us Franko Nava MD [facility] US PROCEDURES Final Resu lt * IR [...] is planned due to possible progression. TECHNIQUE: Advertising Internship: Franko Nava MD Secondary Polymer Engineer: Luis Miguel Estes M.D. Rad Dose: [...] 5 F vascular sheath. Using a 5 [place] contra 2 catheter, the celiac axis was [...] concern for intratumoral hemorrhage. Patient presents to [facility] embolization of tumor. Additionally, rebiopsy of liver mass isplanned due to possible progression. TECHNIQUE: Advertising Internship: Franko Nava MD Secondary Polymer Engineer: Luis Miguel Estes M.D. Rad Dose: [...] 5 F vascular sheath. Using a 5 [place] contra 2catheter, the celiac axis was catheterized. [...] 2:55 PM EDT) Case Report Cytology Case: [id number] Authorizing Provider: Franko Nava MD Collected: 11/18/2024 1455 Ordering Location: [facility] [place] Emergency Department Received: 11/18/2024 1520 Specimen: Liver, LIVER, CT GUIDED CORE BIOPSY 3:41 PM EDT [facility] Final Diagnosis A. LIVER, CT GUIDED CORE BIOPSY: - POSITIVE FOR MALIGNANCY, METASTATIC CARCINOMA CONSISTENT WITH PREVIOUSLY DIAGNOSED ENDOMETRIAL CARCINOMA, SEE COMMENT 3:41 PM EDT [facility] at 1541 EDT Comment History of metastatic [...] not identical to the previous surgical specimen ([id number]), the staining pattern noted below is identical to the previous tumor. 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 Material is present in the cell block for ancillary testing as clinically indicated. 3:41 PM EDT [facility] Special and Immunohistochemical Stains IHC: A1-1 CK-AE1/AE3 Positive A1-2 PAX8 Positive A1-3 ER Non-Quantitative Positive, moderate intensity in the majority of the cells A1-4 TX Non-Quantitative Rare positive cells, weak intensity A1-5 Androgen Receptor Positive, variable All controls show appropriate reactivity. All immunohistochemis try, in situ hybridization, and histochemical tests were developed by and are performed at the [facility], [address] [place] [address]. All tests reported here, except those addressing [...] on decalcified specimens. 5 3:41 PM EDT [facility] Intradepartmental Consultation with Agreement Dr. Fuentes 5 3:41 PM EDT [facility] Immediate Evaluation Core biopsy performed by: Dr. Nava Number of sticks: 5 This service has been rendered in part by a resident. A pathologist has personally reviewed the slides/tissue and has rendered and is responsible for diagnosis for the diagnosis that appears on the report. 5 3:41 PM EDT [facility] Clinical History metastesis to liver 5 3:41 PM EDT [facility] Procedure Type US 5 3:41 PM EDT [facility] Size/Description of Lesion liver tumor 5 3:41 PM EDT [facility] Cancer History Yes 5 3:41 PM EDT [facility] Gross Description A. LIVER, CT [...] fixation. Cold Time: 13m 3:41 PM EDT [facility] Note: A resident was involved in the service. I attest I examined the relevant preparations for the specimens and confirmed the diagnosis or interpretation. 3:41 PM EDT [facility] Clinical Information No Dx found. 3:41 PM EDT [facility] Fine Needle Aspirate Liver structure / Unknown Non-blood Collection / Unknown 11/18/2024 2:55 PM EDT 11/18/2024 3:20 PM EDT Franko Nava MD LAB CYTOLOGY ORDERABLES Sonali l Result [facility] [address] [place] [address] * Transfuse RBC (11/18/2024 1:00 PM EDT) [...] Co de Phone Number BLOOD BANK [address] [place] [address], [place] * Prepare Leukocyte Reduced RBC: 1 Units (11/18/2024 8:49 AM EDT) Product Code [id number] BLOO D BANK Dispense Status Transfused BLOOD BANK Blood Expiration Date [id number] BLOOD BANK Unit Number [id number] B LOOD BANK Product Blood Type 5100 BLOOD BANK Blood Type O+ BLOOD BANK Crossmatch Compatible BLOOD BANK Other Vinicius Love MD BLOOD BANK PRODUCT ORDERABLES Final Result Performing Organization Address City/State/[facility] Co de Phone Number BLOOD BANK [address] * PERIPHERAL IV (SMARTFORM LINK) (11/18/2024 [...] Hematocrit, Blood (11/18/2024 5:54 AM EDT) Pathologist [facility] [place] HGB 6.9(L) 11.2 - 15.7 g/dL LAB HEMATOLOGY METHOD 11/18/2024 6:06 AM EDT [facility] HCT 21.3(L) 34.0 - 45.0 % LAB HEMATOLOGY METHOD 11/18/2024 6:06 AM EDT [facility] Blood Venous blood specimen / Unknown Venipuncture / Unknown 11/18/2024 5:54 AM EDT 11/18/2024 6:04 AM EDT us Vinicius Love MD LAB BLOOD ORDERABLES Final Re sult Performing Organization Address City/[facility] Co de Phone Number [facility] [address] [place] [address] * (ABNORMAL) Magnesium (11/18/2024 4:36 AM EDT) Magnesium, Plasma 1.6(L) 1.9 - 2.4 mg/dL 11/18/2024 5:20 AM EDT [facility] Blood Venous blood specimen / Unknown Venipuncture / Unknown 11/18/2024 4:36 AM EDT 11/18/2024 4:48 AM EDT us Vinicius Love MD LAB BLOOD ORDERABLES Final Re sult Performing Organization Address [facility] Co de Phone Number [facility] [address] [place] [address] * IONIZED CALCIUM, SERUM (11/18/2024 4:36 AM EDT) Ionized Calcium, Serum 4.6 4.6 - 5.3 mg/dL LAB HEMATOLOGY METHOD 11/18/2024 5:29 AM EDT [facility] Blood Venous blood specimen / Unknown Venipuncture / Unknown 11/18/2024 4:36 AM EDT 11/18/2024 4:48 AM EDT us Vinicius Love MD LAB BLOOD ORDERABLES Final Re sult Performing Organization Address [facility] Co de Phone Number [facility] [address] [place] [address] * (ABNORMAL) Comprehensive metabolic panel (11/18/2024 4:36 AM EDT) Glucose, Plasma 91 74 - 99 mg/dL 11/18/2024 5:20 AM EDT [facility] BUN, Plasma 10 7 - 21 mg/dL 11/18/2024 5:20 AM EDT [facility] Creatinine, Plasma 0.90 0.60 - 1.10 mg/dL 11/18/2024 5:20 AM EDT [facility] BUN/Creatinine Ratio 11 11/18/2024 5:20 AM EDT [facility] Sodium, Plasma 140 136 - 145 mmol/L 11/18/2024 5:20 AM EDT [facility] Potassium, Plasma 3.6 3.6 - 4.9 mmol/L 11/18/2024 5:20 AM EDT [facility] Chloride, Plasma 105 97 - 107 mmol/L 11/18/2024 5:20 AM EDT [facility] CO2, Plasma 22 22 - 29 mmol/L 11/18/2024 5:20 AM EDT [facility] Anion Gap 13 6 - 16 mmol/L 11/18/2024 5:20 AM EDT [facility] Total Calcium, Plasma 7.9(L) 8.9 - 10.2 mg/dL 11/18/2024 5:20 AM EDT [facility] Total Protein 5.8(L) 6.3 - 7.9 g/dL 11/18/2024 5:20 AM EDT [facility] Albumin, Plasma 2.6(L) 3.5 - 5.2 g/dL 11/18/2024 5:20 AM EDT [facility] AST, Plasma 23 10 - 35 U/L 11/18/2024 5:20 AM EDT [facility] ALT, Plasma 12 10 - 35 U/L 11/18/2024 5:20 AM EDT [facility] Alkaline Phosphatase, Plasma 263(H) 35 - 104 U/L 11/18/2024 5:20 AM EDT [facility] Total Bilirubin, Plasma 0.5 0.2 - 1.1 mg/dL 11/18/2024 5:20 AM EDT [facility] eGFRcr 80.0 mL/min/1.7 3m*2 11/18/2024 5:20 AM EDT [facility] Comment:Reported eGFRcr in m L/min/1.73m2 is based the CKD-EPI 2020 equation that does not use a race coefficient. Blood Venous blood specimen / Unknown Venipuncture / Unknown 11/18/2024 4:36 AM EDT 11/18/2024 4:48 AM EDT us Vinicius Love MD LAB BLOOD ORDERABLES Final Re sult [facility] [address] [place] [address] * (ABNORMAL) CBC W/O Differential (11/18/2024 4:36 AM EDT) WBC Count 9.43 3.70 - 10.30 10*3/uL LAB HEMATOLOGY METHOD 11/18/2024 4:51 AM EDT [facility] RBC Count 2.39(L) 3.90 - 5.20 10*6/uL LAB HEMATOLOGY METHOD 11/18/2024 4:51 AM EDT [facility] HGB 6.4(LL) 11.2 - 15.7 g/dL LAB HEMATOLOGY METHOD 11/18/2024 4:51 AM EDT [facility] HCT 19.8(L) 34.0 - 45.0 % LAB HEMATOLOGY METHOD 11/18/2024 4:51 AM EDT [facility] Platelet Count 220 155 - 369 10*3/uL LAB HEMATOLOGY METHOD 11/18/2024 4:51 AM EDT [facility] MCV 83 79 - 98 fL LAB HEMATOLOGY METHOD 11/18/2024 4:51 AM EDT [facility] MCH 26.8 26.0 - 32.0 pg LAB HEMATOLOGY METHOD 11/18/2024 4:51 AM EDT [facility] MCHC 32.3 30.7 - 35.5 g/dL LAB HEMATOLOGY METHOD 11/18/2024 4:51 AM EDT [facility] RDW 16.7(H) 11.5 - 14.5 % LAB HEMATOLOGY METHOD 11/18/2024 4:51 AM EDT [facility] MPV 9.3 8.8 - 12.5 fL LAB HEMATOLOGY METHOD 11/18/2024 4:51 AM EDT [facility] nRBC 0.0 <=0.0 per 100 WBCs LAB HEMATOLOGY METHOD 11/18/2024 4:51 AM EDT [facility] Blood Venous blood specimen / Unknown Venipuncture / Unknown 11/18/2024 4:36 AM EDT 11/18/2024 4:42 AM EDT us Vinicius Love MD LAB BLOOD ORDERABLES Final Re sult [facility] [address] [place] [address] * US Abdomen RUQ (11/17/2024 2:00 PM [...] - 35 sec 11/17/2024 1:44 PM EDT [facility] Blood Venous blood specimen / Unknown Venipuncture / Unknown 11/17/2024 1:25 PM EDT 11/17/2024 1:27 PM EDT us Kareem Guidry MD LAB BLOOD ORDERABLES Fin al Result [facility] [address] [place] [address] * (ABNORMAL) PT-INR (11/17/2024 1:25 PM EDT) Prothrombin Time 15.4(H) 12.0 - 14.3 sec 11/17/2024 1:43 PM EDT [facility] INR 1.2(H) 0.9 - 1.1 11/17/2024 1:43 PM EDT [facility] Blood Venous blood specimen / Unknown Venipuncture / Unknown 11/17/2024 1:25 PM EDT 11/17/2024 1:27 PM EDT Narrative [facility] - 11/17/2024 1:43 PM EDT OPTIMAL INR RANGES FOR PATIENT ON ORAL ANTICOAGULANT THERAPY Prevention of venous thromboembolism INR 2.0 to 3.0 In patients with heart disease: Atrial fibrillation INR 2.0 to 3.0 Valvular heart disease INR 2.0 to 3.0 Tissue heart valves INR 2.0 to 3.0 Mechanical prosthetic valves INR 2.5 to 3.5 Prevention of recurrent PR INR 2.5 to 3.5 Kareem Guidry MD LAB BLOOD ORDERABLES Fin al Result [facility] [address] [place] [address] * (ABNORMAL) Lipase (11/17/2024 1:25 PM EDT) Lipase, Plasma 14(L) 19 - 63 U/L 11/17/2024 1:50 PM EDT [facility] Blood Venous blood specimen / Unknown Venipuncture / Unknown 11/17/2024 1:25 PM EDT 11/17/2024 1:27 PM EDT Kareem Guidry MD LAB BLOOD ORDERABLES Fin al Result [facility] [address] [place] [address] * (ABNORMAL) CMP (11/17/2024 1:25 PM EDT) Glucose, Plasma 89 74 - 99 mg/dL 11/17/2024 1:50 PM EDT [facility] BUN, Plasma 10 7 - 21 mg/dL 11/17/2024 1:50 PM EDT [facility] Creatinine, Plasma 0.88 0.60 - 1.10 mg/dL 11/17/2024 1:50 PM EDT [facility] BUN/Creatinine Ratio 11 11/17/2024 1:50 PM EDT [facility] Sodium, Plasma 137 136 - 145 mmol/L 11/17/2024 1:50 PM EDT [facility] Potassium, Plasma 3.6 3.6 - 4.9 mmol/L 11/17/2024 1:50 PM EDT [facility] Chloride, Plasma 102 97 - 107 mmol/L 11/17/2024 1:50 PM EDT [facility] CO2, Plasma 20(L) 22 - 29 mmol/L 11/17/2024 1:50 PM EDT [facility] Anion Gap 15 6 - 16 mmol/L 11/17/2024 1:50 PM EDT [facility] Total Calcium, Plasma 9.0 8.9 - 10.2 mg/dL 11/17/2024 1:50 PM EDT [facility] Total Protein 7.5 6.3 - 7.9 g/dL 11/17/2024 1:50 PM EDT [facility] Albumin, Plasma 3.0(L) 3.5 - 5.2 g/dL 11/17/2024 1:50 PM EDT [facility] AST, Plasma 32 10 - 35 U/L 11/17/2024 1:50 PM EDT [facility] ALT, Plasma 18 10 - 35 U/L 11/17/2024 1:50 PM EDT [facility] Alkaline Phosphatase, Plasma 378(H) 35 - 104 U/L 11/17/2024 1:50 PM EDT [facility] Total Bilirubin, Plasma 0.7 0.2 - 1.1 mg/dL 11/17/2024 1:50 PM EDT [facility] eGFRcr 82.2 mL/min/1.7 3m*2 11/17/2024 1:50 PM EDT [facility] Comment:Reported eGFRcr in m L/min/1.73m2 is based the CKD-EPI 2020 equation that does not use a race coefficient. Blood Venous blood specimen / Unknown Venipuncture / Unknown 11/17/2024 1:25 PM EDT 11/17/2024 1:27 PM EDT us Kareem Guidry MD LAB BLOOD ORDERABLES Fin al Result [facility] [address] [place] [address] * (ABNORMAL) CBC w/diff (11/17/2024 1:25 PM EDT) WBC Count 12.34(H) 3.70 - 10.30 10*3/uL LAB HEMATOLOGY METHOD 11/17/2024 1:30 PM EDT [facility] RBC Count 3.19(L) 3.90 - 5.20 10*6/uL LAB HEMATOLOGY METHOD 11/17/2024 1:30 PM EDT [facility] HGB 8.4(L) 11.2 - 15.7 g/dL LAB HEMATOLOGY METHOD 11/17/2024 1:30 PM EDT [facility] HCT 27.1(L) 34.0 - 45.0 % LAB HEMATOLOGY METHOD 11/17/2024 1:30 PM EDT [facility] Platelet Count 308 155 - 369 10*3/uL LAB HEMATOLOGY METHOD 11/17/2024 1:30 PM EDT [facility] MCV 85 79 - 98 fL LAB HEMATOLOGY METHOD 11/17/2024 1:30 PM EDT [facility] MCH 26.3 26.0 - 32.0 pg LAB HEMATOLOGY METHOD 11/17/2024 1:30 PM EDT [facility] MCHC 31.0 30.7 - 35.5 g/dL LAB HEMATOLOGY METHOD 11/17/2024 1:30 PM EDT [facility] RDW 16.7(H) 11.5 - 14.5 % LAB HEMATOLOGY METHOD 11/17/2024 1:30 PM EDT [facility] MPV 9.6 8.8 - 12.5 fL LAB HEMATOLOGY METHOD 11/17/2024 1:30 PM EDT [facility] nRBC 0.0 <=0.0 per 100 WBCs LAB HEMATOLOGY METHOD 11/17/2024 1:30 PM EDT [facility] Differential Type Automated LAB HEMATOLOGY METHOD 11/17/2024 1:30 PM EDT [facility] Neutrophils % 80 % LAB HEMATOLOGY METHOD 11/17/2024 1:30 PM EDT [facility] Lymphocytes % 11 % LAB HEMATOLOGY METHOD 11/17/2024 1:30 PM EDT [facility] Monocytes % 5 % LAB HEMATOLOGY METHOD 11/17/2024 1:30 PM EDT [facility] Eosinophils % 1 % LAB HEMATOLOGY METHOD 11/17/2024 1:30 PM EDT [facility] Basophils % 1 % LAB HEMATOLOGY METHOD 11/17/2024 1:30 PM EDT [facility] Immature Granulocytes % 2 % LAB HEMATOLOGY METHOD 11/17/2024 1:30 PM EDT [facility] Neutrophils Absolute 10.04(H) 1.60 - 6.10 10*3/uL LAB HEMATOLOGY METHOD 11/17/2024 1:30 PM EDT [facility] Lymphocytes Absolute 1.31 1.20 - 3.90 10*3/uL LAB HEMATOLOGY METHOD 11/17/2024 1:30 PM EDT [facility] Monocytes Absolute 0.62 0.30 - 0.90 10*3/uL LAB HEMATOLOGY METHOD 11/17/2024 1:30 PM EDT [facility] Eosinophils Absolute 0.08 0.00 - 0.50 10*3/uL LAB HEMATOLOGY METHOD 11/17/2024 1:30 PM EDT [facility] Basophils Absolute 0.06 0.00 - 0.10 10*3/uL LAB HEMATOLOGY METHOD 11/17/2024 1:30 PM EDT [facility] Immature Granulocytes Absolute 0.23(H) 0.00 - 0.06 10*3/uL LAB HEMATOLOGY METHOD 11/17/2024 1:30 PM EDT [facility] Blood Venous blood specimen / Unknown Venipuncture / Unknown 11/17/2024 1:25 PM EDT 11/17/2024 1:27 PM EDT [facility] - 11/17/2024 1:30 PM EDT Therapeutic decision making should be based on absolute values, rather than percentages. us Kareem Guidry MD LAB BLOOD ORDERABLES Fin al Result [facility] [address] [place] [address] documented in this encounter Visit Diagnoses Diagnosis [...] Ro Barber, INOCENCIA) 0849 (Given - Provider: Aliyn Armenta RN) ibuprofen tablet 600 mg 600 mg, Oral, Every 6 hours scheduled, First dose on Sun11/20/24 at 0000, Until Discontinued, Routine 2340 (Given - Provider: Genny Ellis RN) 0518 (Given - Provider: Genny Ellis, INOCENCIA)1126 (Given - Provider: Ro Barber RN)1846 (Given - Provider: Ro Barber, RN)2341 (Given - Provider: Genny Ellis, INOCENCIA) 0533 (Given - Provider: Genny lElis, RN) ketorolac (Toradol) injection 15 mg (COMPLETED) [...] documented as of this encounter Care Teams Network Support Engineer Relationship Specialty Start Date End Date Pcp, No [address] [place] [address] PCP - General Family Medicine 06/16/23 documented as of this encounter
--- OUTSIDE RECORDS SUMMARY | 2024-12-04 10:00 | XMS_ITS | Encounter Summary ---
Author Organization [facility] Address [address] [place] [address] Care Team Providers Care Equipment Operator Intermodal Yard Name Role Phone Pcp, No Primary Care Provider Unavailabl e Reason for Referral * Imaging (Routine) - Pending Review Specialty Diagnoses / Procedures Referred By Contac t Referred To Contact Radiology Diagnoses Endometrial cancer Procedures CT Abdomen Pelvis w IV Contrast Karol Jane MD [address] [address] Phone: tel: fax: Referral ID Status Reason Start Date Expiration Date V isits Requested Visits Authorized [id number] Pending Review 12/04/2024 06/05/2026 1 1 * Imaging (Routine) - Pending Review Specialty Diagnoses / Procedures Referred By Contac t Referred To Contact Radiology Diagnoses Endometrial cancer Procedures CT Chest w IV Contrast Karol Jane MD [address] [address] Phone: tel: fax: Referral ID Status Reason Start Date Expiration Date V isits Requested Visits Authorized [id number] Pending Review 12/04/2024 06/05/2026 1 1 Reason for Visit * Reason Comments Consult Encounter Details Date Type Department Care Team (Late st Contact Info) Description 12/04/2024 10:00 AM EDT Office Visit [facility] [address] [place] [address] Karol Jane MD [address] [place] [address] Endometrial cancer (CMS/HCC) (Primary Dx) Social History [...] any time in the past 12 m [facility], were you homeless or living in a snf (including now)? No 11/18/2024 [facility] Utilities Answer Date Recorded In the past [...] drink first t nicolas in the morning (EYE-IMPREGNATOR HELPER) to steady your nerves or to get [...] staging information was found for the patient. Bowling Alley Operator Cancer Treatment History: 1. Presented to ED [...] is recommended. 4. Final path reviewed at [facility], Dr. Garcia - As you [...] an appointment scheduled with Dr. Veloz in [place] on 12/09. Would like to have her [...] detailed below. Additionally, she denies history of [place], DVT, stroke. Employer: No address on file. [...] an appointment scheduled with Dr. Veloz in [place] on 12/09. He will initiate therapy. - [...] documentation. Encounter time 60 min [facility] [address] [facility] [address] [facility] [address] Dept Loc: [phone] [1] Past Medical History: Diagnosis Date Disease of salivary gland, unspecified Parotid mass Endometrial cancer (CMS/HCC) [2] Past Surgical History: Procedure Laterality Date HYSTERECTOMY N/A Hysterectomy from [facility] TUBAL LIGATION N/A [facility]al ligation from [facility] [3] Family History Problem Relation [...] EST Appointment [facility] [address] [place] [address] 03/19/2025 1:45 PM EST Office Visit [facility] [address] [place] [address] Karol Jane MD [address] [place] [address] Scheduled Orders Name Type Priority Associated Diagnoses [...] documented as of this encounter Care Teams Equipment Operator Intermodal Yard Relationship Specialty Start Date End Date Pcp, Saloni [address] [place] [address] PCP - General Family Medicine 06/16/23 documented as of this encounter
[2024-12-23] VITALS (12 sets, daily range): BP systolic 119–131; BP diastolic 62–72; PULSE 68–75; RESP 18; TEMP 36.8; O2SAT 98
--- OUTSIDE RECORDS SUMMARY | 2024-12-23 09:02 | XMS_ITS | Encounter Summary ---
Author Organization [facility] Address [address] [place] [address] Care Team Providers Care Violin Teacher Name Role Phone Pcp, No Primary [...] any time in the past 12 m [facility], were you homeless or living in a skilled nursing (including now)? No 11/18/2024 [facility] Utilities Answer Date Recorded In the [...] drink first t nicolas in the morning (EYE-ROLLED OATS MILL OPERATOR) to steady your nerves or to [...] Risk Indicated 11/19/2024 10:00 AM EDT Socrates Barragan, RN * Question Answer Date of Assessment [...] EST Appointment [facility] [address] [place] [address] 03/19/2025 1:45 PM EST Office Visit [facility] [address] [place] [address] Karol Jane MD [address] [facility] [address] [place] [address] documented as of this encounter Visit Diagnoses Not on filedocumented in this encounter Additional Health Concerns Assessment Noted Time A Body Mass Index follow-up plan has been documented for the patient 11/21/2024 8:58 AM EDT documented as of this encounter Care Teams Violin Teacher Relationship Specialty Start Date End Date Pcp, No [address] [place] [address] PCP - General Family Medicine 06/16/23 documented as of this encounter
--- OUTSIDE RECORDS SUMMARY | 2024-12-23 09:02 | XMS_ITS | Encounter Summary ---
Author Organization [facility] Address [address] [place] [address] Care Team Providers Care Rfid Engineer Name Role Phone Pcp, No Primary [...] time in the past 12 m [facility], were you homeless or living in a fci (including now)? No 11/18/2024 [facility] Utilities Answer Date Recorded In the [...] drink first t nicolas in the morning (EYE-BOXING MACHINE OPERATOR) to steady your nerves or [...] Risk Indicated 11/18/2024 7:00 PM EDT Kareem Angleo, RN * Question Answer Date of Assessment Author 1. Wish to be (Past 1 Month) No 025 7:00 PM EDT Kareem Angelo, RN 2. Non-Specific Active Suici sierra Thoughts (Past 1 Month) No 11/18/2024 7:00 PM EDT Elayne Angelo, RN 6. Suicidal Behavior (Lifetime) No 7:00 PM EDT Kareem Angelo, RN documented as of this encounter Plan of Treatment Upcoming Encounters Date Type Department Care Team (Late st Contact Info) Description 03/19/2025 12:10 PM EST Appointment [facility] [address] [place] [address] 03/19/2025 1:45 PM EST Office Visit [facility] [address] [place] [address] Karol Jane MD [address] [place] [address] documented as of this encounter Visit Diagnoses Not on filedocumented in this encounter Additional Health Concerns Assessment Noted Time A Body Mass Index follow-up plan has been documented for the patient 11/21/2024 8:58 AM EDT documented as of this encounter Care Teams Rfid Engineer Relationship Specialty Start Date End Date Pcp, No [address] [place] [address] PCP - General Family Medicine 06/16/23 documented as of this encounter
--- OUTSIDE RECORDS SUMMARY | 2024-12-23 09:02 | XMS_ITS ---
Author Organization [facility] Address [address] [place] [address] Care Team Providers Care Artists' Model Name Role Phone Pcp, No Primary Care Provider Unavailabl e Active Problems Problem Noted Date Diagnosed Date Tobacco use disorder 12/04/2024 RUQ abdominal pain 11/17/2024 Assessment & Plan [...] that would be needed Recommend admission to recreation director onc vs medicine EGS will continue to follow Endometrial cancer 11/10/2024 Assessment & Plan (11/11/2024 11:30 AM EDT): Cyber Systems Engineer Onc consultation Assessment & Plan (11/10/2024 1:52 PM EDT): Cyber Systems Engineer Onc consultation Metastasis to liver 11/10/2024 Metastasis [...]
--- OUTSIDE RECORDS SUMMARY | 2024-12-23 09:03 | XMS_ITS | Encounter Summary ---
Author Organization [facility] Address [address] [place] [address] Care Team Providers Care Physics Technician Name Role Phone Pcp, No Primary [...] any time in the past 12 m [facility], were you homeless or living in a assisted (including now)? No 11/11/2024 [facility] Utilities Answer Date Recorded In [...] EST Appointment [facility] [address] [place] [address] 03/19/2025 1:45 PM EST Office Visit [facility] [address] [place] [address] Karol Jane MD [address] [facility] [address] [place] [address] documented as of this encounter Visit Diagnoses [...] documented as of this encounter Care Teams Physics Technician Relationship Specialty Start Date End Date Pcp, [place] [address] PCP - General Family Medicine 06/16/23 documented as of this encounter
--- OUTSIDE RECORDS SUMMARY | 2024-12-23 09:03 | XMS_ITS | Encounter Summary ---
Author Organization [facility] Address [address] [place] [address] Care Team Providers Care Green Pipefitter Name Role Phone Pcp, No Primary Care [...] any time in the past 12 m [facility], were you homeless or living in a custodial (including now)? No 11/11/2024 [facility] Utilities Answer Date Recorded In the past [...] EST Appointment [facility] [address] [place] [address] 03/19/2025 1:45 PM EST Office Visit [facility] [address] [place] [address] Karol Jane MD [address] [place] [address] documented as of this encounter Visit Diagnoses Not on filedocumented in this encounter Additional Health Concerns Assessment Noted Time A Body Mass Index follow-up plan has been documented for the patient 11/14/2024 8:03 PM EDT documented as of this encounter Care Teams Green Pipefitter Relationship Specialty Start Date End Date Pcp, No [address] [place] [address] PCP - General Family Medicine 06/16/23 documented as of this encounter
--- OUTSIDE RECORDS SUMMARY | 2024-12-23 09:03 | XMS_ITS | Encounter Summary ---
Author Organization [facility] Address [address] [place] [address] Care Team Providers Care Rn Prior Authorization Name Role Phone Pcp, No Primary Care [...] EST Appointment [facility] [address] [place] [address] 03/19/2025 1:45 PM EST Office Visit [facility] [address] [place] [address] Karol Jane MD [address] [place] [address] documented as of this encounter Visit Diagnoses Not on filedocumented in this encounter Additional Health Concerns Assessment Noted Time A Body Mass Index follow-up plan has been documented for the patient 11/14/2024 8:03 PM EDT documented as of this encounter Care Teams Rn Prior Authorization Relationship Specialty Start Date End Date Pcp, Saloni [address] [place] [address] PCP - General Family Medicine 06/16/23 documented as of this encounter
--- OUTSIDE RECORDS SUMMARY | 2024-12-23 09:04 | XMS_ITS | Encounter Summary ---
Author Organization [facility] Address [address] [place] [address] Care Team Providers Care Waiter/Waitress Take Out Name Role Phone Pcp, No Primary Care Provider Unavailabl e Encounter Details Date Type Department Care Team (Latest Contact Info) Description 11/29/2024 Travel Social History Tobacco Use Types Packs/Day [...] time in the past 12 m [facility], were you homeless or living in a nursing home (including now)? No 11/18/2024 [facility] Utilities Answer Date Recorded [...] drink first t nicolas in the morning (EYE-LOAN ANALYST) to steady your nerves or to get [...] EST Appointment [facility] [address] [place] [address] 03/19/2025 1:45 PM EST Office Visit [facility] [address] [place] [address] Karol Jane MD 800 [facility] [address] [facility] [address] [place] [address] documented as of this encounter Visit Diagnoses Not on filedocumented in this encounter Additional Health Concerns Assessment Noted Time A Body Mass Index follow-up plan has been documented for the patient 11/21/2024 8:58 AM EDT documented as of this encounter Care Teams Waiter/Waitress Take Out Relationship Specialty Start Date End Date Pcp, No [address] [place] [address] PCP - General Family Medicine 06/16/23 documented as of this encounter
--- OUTSIDE RECORDS SUMMARY | 2024-12-23 09:04 | XMS_ITS | Encounter Summary ---
Author Organization [facility] Address [address] [place] [address] Care Team Providers Care Sales Support Manager Name Role Phone Pcp, No Primary [...] (Past 1 Month) No 11/08/2024 11:22 AM MAKAYLAT Shmuel King RN 2. Non-Specific Active Suicidal Thoughts (Past 1 Month) No 11/08/2024 11:22 AM EDT Shmuel King RN 6. Suicidal Behavior (Lifetime) No 11/08/2024 11:22 AM EDT Shmuel King RN documented as of this encounter Plan of Treatment Upcoming Encounters Date Type Department Care Team (Late st Contact Info) Description 03/19/2025 12:10 PM EST Appointment [facility] [address] [place] [address] 03/19/2025 1:45 PM EST Office Visit [facility] [address] [place] [address] Karol Jane MD [address] [place] [address] documented as of this encounter Visit Diagnoses Not on filedocumented in this encounter Additional Health Concerns Assessment Noted Time A Body Mass Index follow-up plan has been documented for the patient 11/14/2024 8:03 PM EDT documented as of this encounter Care Teams Sales Support Manager Relationship Specialty Start Date End Date Pcp, No [address] [place] [address] PCP - General Family Medicine 06/16/23 documented as of this encounter
--- OUTSIDE RECORDS SUMMARY | 2024-12-23 09:04 | XMS_ITS | Encounter Summary ---
Author Organization [facility] Address [address] [place] [address] Care Team Providers Care Stores Clerk Name Role Phone Pcp, No Primary Care Provider Unavailabl e Encounter Details Date Type Department Care Team (Late st Contact Info) Description 11/08/2024 Orders Only External Location [address] [place] [address] Provider, External Social History Tobacco Use Types [...] any time in the past 12 m [facility], were you homeless or living in a prison (including now)? No 11/11/2024 [facility] Utilities Answer Date Recorded In the [...] EST Appointment [facility] [address] [place] [address] 03/19/2025 1:45 PM EST Office Visit [facility] [address] [place] [address] Karol Jane MD [address] [place] [address] documented as of this encounter Procedures Procedure [...] documented as of this encounter Care Teams Stores Clerk Relationship Specialty Start Date End Date Pcp, Saloni [address] [place] [address] PCP - General Family Medicine 06/16/23 documented as of this encounter
--- OUTSIDE RECORDS SUMMARY | 2024-12-23 09:04 | XMS_ITS | Encounter Summary ---
Author Organization [facility] Address [address] [place] [address] Care Team Providers Care Felt Cutter Name Role Phone Pcp, No Primary Care Provider Unavailabl e Encounter Details Date Type Department Care Team (Late st Contact Info) Description 11/08/2024 Orders Only External Location [address] [place] [address] Provider, External Social History Tobacco Use Types [...] any time in the past 12 m [facility], were you homeless or living in a fdc (including now)? No 11/11/[address] [facility] Utilities Answer Date Recorded In the [...] EST Appointment [facility] [address] [place] [address] 03/19/2025 1:45 PM EST Office Visit [facility] [address] [place] [address] Karol Jane MD [address] [place] [address] documented as of this encounter Procedures Procedure [...] documented as of this encounter Care Teams Felt Cutter Relationship Specialty Start Date End Date Pcp, Saloni [address] [place] [address] PCP - General Family Medicine 06/16/23 documented as of this encounter
--- OUTSIDE RECORDS SUMMARY | 2024-12-23 09:04 | XMS_ITS | Encounter Summary ---
Author Organization [facility] Address [address] [place] [address] Care Team Providers Care Dog Groomer Name Role Phone Pcp, No Primary Care Provider Unavailabl e Encounter Details Date Type Department Care Team (Latest Contact Info) Description 12/04/2024 Travel Social History Tobacco Use Types Packs/Day [...] any time in the past 12 m [facility], were you homeless or living in a fpc (including now)? No 11/18/2024 [facility] Utilities Answer Date Recorded In the past 12 months has e cWyze, gas, oil, or water [employer] threatened to shut off services in your [...] drink first t nicolas in the morning (EYE-CARD READER) to steady your nerves or to get rid of a hangover? 0 11/18/2024 CAGE Questionnaire Score 0 025 Comments No Sex and Gender Information Value Date Recorded Sex Assigned at Not on file Legal Sex Female 7:49 PM EDT Gender Identity Not on file Sexual Orientation Not on file documented as of this encounter Functional Status * Over the [...] Mayte Cruz documented as of this encounter Plan of Treatment Upcoming Encounters Date Type Department Care Team (Late st Contact Info) Description 03/19/2025 12:10 PM EST Appointment [facility] [address] [place] [address] 03/19/2025 1:45 PM EST Office Visit [facility] [address] [place] [address] Karol Jane MD [address] [facility] [address] [place] [address] documented as of this encounter Visit Diagnoses Not on filedocumented in this encounter Additional Health Concerns Assessment Noted Time A fall risk assessment has been complete d for the patient 12/04/2024 10:03 AM EDT A Body Mass Index follow-up plan has been documented for the patient 11/21/2024 8:58 AM EDT documented as of this encounter Care Teams Dog Groomer Relationship Specialty Start Date End Date Pcp, Saloni [address] [place] [address] PCP - General Family Medicine 06/16/23 documented as of this encounter
--- OUTSIDE RECORDS SUMMARY | 2024-12-23 09:04 | XMS_ITS | Encounter Summary ---
Author Organization [facility] Address [address] [place] [address] Care Team Providers Care Online Media Director Name Role Phone Pcp, No Primary Care [...] any time in the past 12 m [facility], were you homeless or living in a long term (including now)? No 11/18/2024 [facility] Utilities Answer Date Recorded In the [...] Have you had a drink first t incolas in the morning (EYE-VOLLEYBALL COACH) to steady your nerves or to get [...] EST Appointment [facility] [address] [place] [address] 03/19/2025 1:45 PM EST Office Visit [facility] [address] [place] [address] Karol Jane MD [address] [place] [address] documented as of this encounter Visit Diagnoses Not on filedocumented in this encounter Additional Health Concerns Assessment Noted Time A Body Mass Index follow-up plan has been documented for the patient 11/21/2024 8:58 AM EDT documented as of this encounter Care Teams Online Media Director Relationship Specialty Start Date End Date Pcp, No [address] [place] [address] PCP - General Family Medicine 06/16/23 documented as of this encounter
--- OUTSIDE RECORDS SUMMARY | 2024-12-23 09:04 | XMS_ITS | Clinical Summary ---
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 100 tablet 1 5 Active ondansetron ODT (Zofran-ODT) 4 MG disintegrating tablet Dissolve 1 tablet on the tongue every 6 hours as needed for nausea or vomiting. 10 tablet 1 5 Active methocarbamol (Robaxin) 500 MG tablet Take 1 tablet by mouth 4 times a day. 120 tablet 1 5 Active pantoprazole (Protonix) 40 MG EC tablet Take 1 tablet by mouth daily before breakfast. Do not crush, chew, or split. 30 tablet 2 5 Active ondansetron ODT (Zofran-ODT) 4 MG disintegrating tablet Dissolve 1 tablet on the tongue every 6 hours as needed for nausea or vomiting. 20 tablet 5 Active Active Problems Problem Noted Date Diagnosed Date Tobacco use disorder 12/04/2024 RUQ abdominal pain 11/17/2024 Assessment & Plan (11/17/2024 6:02 PM EDT): Concern for stones and wall thickness of gallbladder to 4mm. Most recent CT also reviewed with large stone noted. However, she also had large metastatic lesions to liver. T bilskye wnl Recommend further workup with HIDA to evaluate if there is concern for cholecystitis before considering risks and benefits of any intervention that would be needed Recommend admission to advertising project manager onc vs medicine EGS will continue to follow Endometrial cancer 11/10/2024 Assessment & Plan (11/11/2024 11:30 AM EDT): Internet Project Manager Onc consultation Assessment & Plan (11/10/2024 1:52 PM EDT): Internet Project Manager Onc consultation Metastasis to liver 11/10/2024 Metastasis [...] Encounters Date Type Department Care Team Description 12/04/2024 10:00 AM EDT Office Visit [facility] Gynecology [address] [facility] [address] [place] [address] Karol Jane MD Endometrial cancer (CMS/HCC) (Primary Dx) 12/04/2024 Travel 11/29/2024 Travel 11/19/2024 Travel 11/18/2024 Travel 11/17/2024 1:26 PM EDT - 11/21/2024 10:43 AM EDT Hospital Encounter [facility] Inpatient [facility] [address] [place] [address] Elisabeth Hernandez MD Miller, Rachel W, MD RUQ abdominal pain (Primary Dx); Endometrial cancer (CMS/HCC); Metastasis to liver (CMS/HCC); 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) Discharge Disposition: Home or Self Care 11/17/2024 Travel 11/14/2024 Travel 11/11/2024 Travel 11/09/2024 Travel 11/08/2024 11:13 AM EDT - 11/14/2024 8:50 PM EDT Hospital Encounter [facility] Inpatient [address] [place] [address] Blaire Fuchs MD Houck, Jessica L, DO Tucker, Brian K, Morelia Irene MD Dietrich, Charles S, MD Miller, Rachel W, MD Metastasis to liver (CMS/HCC) (Primary Dx); Calculus of gallbladder without cholecystitis without obstruction Discharge Disposition: Home or Self Care 11/08/2024 Orders Only External Location [address] [place] [address] Provider, External 11/08/2024 Orders Only External Location [address] [place] [address] Provider, External 11/08/2024 Travel from Last 3 [...] in the past 12 m [facility], were you homeless or living in a halfway (including now)? 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) to steady your nerves or to get [...] Mass Index 35.13 12/04/2024 10:01 AM EDT Plan of Treatment Upcoming Encounters Date Type Department Care Team (Late st Contact Info) Description 03/19/2025 12:10 PM EST Appointment [facility] Radiology [address] [place] [address] 03/19/2025 1:45 PM EST Office Visit [facility] Gynecology [address] [place] [address] Karol Jane MD [address] [place] [address] Health Maintenance Due Date Last Done Comments [facility]-/Child/Adol SDOH Screenings 1978 [id number] Vaccine (#1) 1983 [facility]-DTaP,Tdap,and Td Vaccine s [...] Screenings 05/18/2025 [facility]-Adult SDOH Screenings 05/18/2025 11/18/2024 [facility]-Depression Screening 12/04/2025 12/04/2024 [facility]-Hepatitis C Screening Completed 2017, 11/06/2017 [facility]-HIV [...] this topic Medical Devices Implanted Type Area Block Sorter Device Identifier Shelf Expiration Date Model / Serial / Lot Vip Vascular Closure Device 6 Fr - [id number] Implanted:Qty: 1 on 11/18/2024 [id number] 07/29/2025 [id number] / / [id number] Procedures Procedure Name Priority Date/Time Associated Diagnosis [...] CORE BIOPSY Routine 11/18/2024 2:55 PM EDT CRISTOBAL OK TUMOR SEEK HYBRID + IHCS AND OTHER TESTS BY TUMOR TYPE Routine 11/18/2024 2:55 PM EDT PREPARE RBC [...] of3 resultswithin the time period is included. Karol Jane MD BLOOD TRANSFUSION ORDERABLES Final Result * (ABNORMAL) IONIZED CALCIUM, SERUM (11/21/2024 3:19 AM EDT) Only the most recent of4 resultswithin the time period is included. Ionized Calcium, Serum 4.5(L) 4.6 - 5.3 mg/dL LAB HEMATOLOGY METHOD 11/21/2024 3:53 AM EDT [facility] Blood Venous blood specimen / Unknown Venipuncture / Unknown 11/21/2024 3:19 AM EDT 11/21/2024 3:27 AM EDT Karol Jane MD LAB BLOOD ORDERABLES Final Re sult [facility] [address] [place] [address] * (ABNORMAL) CBC W/O Differential (11/21/2024 3:19 AM EDT) Only the most recent of10 resultswithin the time period is included. WBC Count 12.55(H) 3.70 - 10.30 10*3/uL LAB HEMATOLOGY METHOD 11/21/2024 3:35 AM EDT [facility] RBC Count 2.70(L) 3.90 - 5.20 10*6/uL LAB HEMATOLOGY METHOD 11/21/2024 3:35 AM EDT [facility] HGB 7.3(L) 11.2 - 15.7 g/dL LAB HEMATOLOGY METHOD 11/21/2024 3:35 AM EDT [facility] HCT 22.1(L) 34.0 - 45.0 % LAB HEMATOLOGY METHOD 11/21/2024 3:35 AM EDT [facility] Platelet Count 236 155 - 369 10*3/uL LAB HEMATOLOGY METHOD 11/21/2024 3:35 AM EDT [facility] MCV 82 79 - 98 fL LAB HEMATOLOGY METHOD 11/21/2024 3:35 AM EDT [facility] MCH 27.0 26.0 - 32.0 pg LAB HEMATOLOGY METHOD 11/21/2024 3:35 AM EDT [facility] MCHC 33.0 30.7 - 35.5 g/dL LAB HEMATOLOGY METHOD 11/21/2024 3:35 AM EDT [facility] RDW 16.0(H) 11.5 - 14.5 % LAB HEMATOLOGY METHOD 11/21/2024 3:35 AM EDT [facility] MPV 9.7 8.8 - 12.5 fL LAB HEMATOLOGY METHOD 11/21/2024 3:35 AM EDT [facility] nRBC 0.0 <=0.0 per 100 WBCs LAB HEMATOLOGY METHOD 11/21/2024 3:35 AM EDT [facility] Blood Venous blood specimen / Unknown Venipuncture / Unknown 11/21/2024 3:19 AM EDT 11/21/2024 3:28 AM EDT Karol Jane MD LAB BLOOD ORDERABLES Final Re sult Performing Organization Address City/[facility] Co de Phone Number [facility] [address] [place] [address] * Phosphorus, Plasma (11/21/2024 3:19 AM EDT) Only the most recent of7 resultswithin the time period is included. Phosphorus, Plasma 3.1 2.5 - 4.5 mg/dL 11/21/2024 5:27 AM EDT [facility] Blood Venous blood specimen / Unknown Venipuncture / Unknown 11/21/2024 3:19 AM EDT 11/21/2024 3:27 AM EDT us Karol Jane MD LAB BLOOD ORDERABLES Final Re sult Performing Organization Address City/[facility] Co de Phone Number [facility] [address] [place] [address] * (ABNORMAL) Magnesium (11/21/2024 3:19 AM EDT) Only the most recent of10 resultswithin the time period is included. Magnesium, Plasma 1.6(L) 1.9 - 2.4 mg/dL 11/21/2024 3:58 AM EDT [facility] Blood Venous blood specimen / Unknown Venipuncture / Unknown 11/21/2024 3:19 AM EDT 11/21/2024 3:27 AM EDT us Karol Jane MD LAB BLOOD ORDERABLES Final Re sult [facility] [address] [place] [address] * (ABNORMAL) Comprehensive metabolic panel (11/21/2024 3:19 AM EDT) Only the most recent of9 resultswithin the time period is included. Glucose, Plasma 116(H) 74 - 99 mg/dL 11/21/2024 3:58 AM EDT [facility] BUN, Plasma 11 7 - 21 mg/dL 11/21/2024 3:58 AM EDT [facility] Creatinine, Plasma 0.77 0.60 - 1.10 mg/dL 11/21/2024 3:58 AM EDT [facility] BUN/Creatinine Ratio 14 11/21/2024 3:58 AM EDT [facility] Sodium, Plasma 137 136 - 145 mmol/L 11/21/2024 3:58 AM EDT [facility] Potassium, Plasma 3.4(L) 3.6 - 4.9 mmol/L 11/21/2024 3:58 AM EDT [facility] Chloride, Plasma 103 97 - 107 mmol/L 11/21/2024 3:58 AM EDT [facility] CO2, Plasma 21(L) 22 - 29 mmol/L 11/21/2024 3:58 AM EDT [facility] Anion Gap 13 6 - 16 mmol/L 11/21/2024 3:58 AM EDT [facility] Total Calcium, Plasma 7.9(L) 8.9 - 10.2 mg/dL 11/21/2024 3:58 AM EDT [facility] Total Protein 5.7(L) 6.3 - 7.9 g/dL 11/21/2024 3:58 AM EDT [facility] Albumin, Plasma 2.4(L) 3.5 - 5.2 g/dL 11/21/2024 3:58 AM EDT [facility] AST, Plasma 188(H) 10 - 35 U/L 11/21/2024 3:58 AM EDT [facility] ALT, Plasma 167(H) 10 - 35 U/L 11/21/2024 3:58 AM EDT [facility] Alkaline Phosphatase, Plasma 505(H) 35 - 104 U/L 11/21/2024 3:58 AM EDT [facility] Total Bilirubin, Plasma 1.0 0.2 - 1.1 mg/dL 11/21/2024 3:58 AM EDT [facility] eGFRcr 96.5 mL/min/1.7 3m*2 11/21/2024 3:58 AM EDT [facility] Comment:Reported eGFRcr in m L/min/1.73m2 is based the CKD-EPI 2020 equation that does not use a race coefficient. Blood Venous blood specimen / Unknown Venipuncture / Unknown 11/21/2024 3:19 AM EDT 11/21/2024 3:27 AM EDT Karol Jane MD LAB BLOOD ORDERABLES Final Re sult Performing Organization Address City/[facility] Co de Phone Number [facility] [address] [place] [address] * Prepare Leukocyte Reduced RBC: 1 Units (11/20/2024 5:27 AM EDT) Only the most recent of3 resultswithin the time period is included. 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 At 58 [...] PM EDT) Case Report Surgical Pathology Case: [id number] Authorizing Provider: Franko Nava MD Collected: 11/18/2024 4247 Ordering Location: [facility] Emergency Department Received: 11/18/2024 1620 Pathologist: Geovanny Gomes DO Specimen: Liver 5:03 PM EDT [facility] Final Diagnosis LIVER, BIOPSY: - POSITIVE FOR METASTATIC CARCINOMA (SEE COMMENT). 5:03 PM EDT [facility] at 1703 EDT Comment The [...] high grade endometrioid adenocarcinoma. 5:03 PM EDT [facility] Clinical Information mets to the liver 5:03 PM EDT [facility] Special and Immunohistochemical Stains IHC: A1-2 CK7: Positive in tumor cells. A1-3 PAX8: Positive in tumor cells. A1-4 ER Non-Quantitative: Positive in tumor cells. All controls show appropriate reactivity. All immunohistochemist ry, in situ hybridization, and histochemical tests were developed by and are performed at the [facility], [address] [place] [address]. All tests reported here, except those addressing [...] negativity on decalcified specimens. 5:03 PM EDT [facility] Gross Description A. LIVER Received in formalin labeled l iver , are multiple red-rosales soft tissue cores measuring from 0.3 cm to 1.5 cm in length and up to 0.1 cm in diameter. Entirely submitted in cassette A1. Cold Time: 0 Ro Mcallister 5:03 PM EDT [facility] Intradepartmental Consultation with Agreement Dr. Fuentes 5:03 PM EDT [facility] Note: A resident was involved in the service. I attest I examined the relevant preparations for the specimens and confirmed the diagnosis or interpretation. 5:03 PM EDT [facility] Tissue Liver structure / Unknown Non-blood Collection / Unknown 11/18/2024 3:57 PM EDT 11/18/2024 4:20 PM EDT us Franko Nava MD LAB PATHOLOGY [place] [address] * IR Embolization Tumor or Ischemia or [...] concern for intratumoral hemorrhage. Patient presents to [facility] for bland embolization of tumor. Additionally, rebiopsy of liver mass is planned due to possible progression. TECHNIQUE: Log Haul Chain Feeder: Franko Nava MD Secondary Armor Officer: Luis Miguel Estes M.D. Rad Dose: 1674 [...] 5 F vascular sheath. Using a 5 Thai contra 2 catheter, the celiac axis was [...] concern for intratumoral hemorrhage. Patient presents to [facility] embolization of tumor. Additionally, rebiopsy of liver mass isplanned due to possible progression. TECHNIQUE: Log Haul Chain Feeder: Franko Nava MD Secondary Armor Officer: Lui sMiguel Estes M.D. Rad Dose: 1674 mGy Medications: [...] 5 F vascular sheath. Using a 5 Thai contra 2catheter, the celiac axis was catheterized. [...] concern for intratumoral hemorrhage. Patient presents to [facility] for bland embolization of tumor. Additionally, rebiopsy of liver mass is planned due to possible progression. TECHNIQUE: Log Haul Chain Feeder: Franko Nava MD Secondary Armor Officer: Luis Miguel Estes M.D. Rad Dose: 1674 [...] 5 F vascular sheath. Using a 5 Thai contra 2 catheter, the celiac axis was [...] concern for intratumoral hemorrhage. Patient presents to [facility] embolization of tumor. Additionally, rebiopsy of liver mass isplanned due to possible progression. TECHNIQUE: Log Haul Chain Feeder: Franko Nava MD Secondary Armor Officer: Luis Miguel Estes M.D. Rad Dose: 1674 [...] 5 F vascular sheath. Using a 5 Thai contra 2catheter, the celiac axis was catheterized. [...] IMG US PROCEDURES Final Resu lt * (ABNORMAL) Caris OK Cancer Seek Hybrid??? + IHCs and Other Tests by Tumor Type (11/18/2024 2:55 PM EDT) CARIS PD-L1 (22C3) Negative 2024 1:58 PM EDT [facility] [employer] CARIS Mismatch Repair Status Proficient (Intact) 11/30/2024 1:58 PM EDT [facility] CARIS Genomic Loss of Heterozygosity - [place] Low 1% 11/30/2024 1:58 PM EDT [facility] CARIS Microsatellite Instability - [place] Stable 11/30/2024 1:58 PM EDT [facility] [employer] CARIS Tumor Mutational Kyle - [place] Low 1 per Mb 11/30/2024 1:58 PM EDT [facility] [employer] CARIS Estrogen Receptor Positive 11/30/2024 1:58 PM EDT [facility] [employer] CARIS Her2/Shoaib Negative 11/30/2024 1:58 PM EDT [facility] [employer] CARIS Progesterone Receptor Negative 11/30/2024 1:58 PM EDT [employer] [employer] CARIS MLH1 Intact nuclear expression 11/30/2024 1:58 PM EDT [facility] [employer] CARIS MSH2 Intact nuclear expression 11/30/2024 1:58 PM EDT [facility] CRISTOBAL MSH6 Intact nuclear expression 11/30/2024 1:58 PM EDT [facility] CRISTOBAL PMS2 Intact nuclear expression 11/30/2024 1:58 PM EDT [facility] CRISTOBAL HLA-A - [place] -,A*02:01 11/30/2024 1:58 PM EDT [facility] CIRSTOBAL HLA-B - [place] B*40:01,B*44: 02 11/30/2024 1:58 PM EDT [facility] CRISTOBAL HLA-C - [place] C*03:04,C*05: 01 11/30/2024 1:58 PM EDT [facility] Tissue Non-blood Collection / Unknown 11/18/2024 2:55 PM EDT 11/21/2024 1:03 PM EDT Narrative This result has genomic variants that were not included in this document. us Karol Jane MD LAB MOL DX NO SOURCE Final Re sult [facility] [address] [address], [place] [phone] * Fine needle aspiration - Core Biopsy (11/18/2024 2:55 PM EDT) Case Report Cytology Case: [id number] Authorizing Provider: Franko Nava MD Collected: 11/18/2024 1455 Ordering Location: [facility] Emergency Department Received: 11/18/2024 1520 Specimen: Liver, LIVER, CT GUIDED CORE BIOPSY 3:41 PM EDT [facility] Final Diagnosis A. LIVER, CT GUIDED CORE BIOPSY: - POSITIVE FOR MALIGNANCY, METASTATIC CARCINOMA CONSISTENT WITH PREVIOUSLY DIAGNOSED ENDOMETRIAL CARCINOMA, SEE COMMENT 3:41 PM EDT [facility] at 1541 EDT Comment History [...] not identical to the previous surgical specimen ([id number]), the staining pattern noted below is identical to the previous tumor. 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 Material is present in the cell block for ancillary testing as clinically indicated. 3:41 PM EDT [facility] Special and Immunohistochemical Stains IHC: A1-1 CK-AE1/AE3 Positive A1-2 PAX8 Positive A1-3 ER Non-Quantitative Positive, moderate intensity in the majority of the cells A1-4 WA Non-Quantitative Rare positive cells, weak intensity A1-5 Androgen Receptor Positive, variable All controls show appropriate reactivity. All immunohistochemis try, in situ hybridization, and histochemical tests were developed by and are performed at the [facility], [address] [place] [address]. All tests reported here, except those addressing [...] on decalcified specimens. 5 3:41 PM EDT [facility] Intradepartmental Consultation with Agreement Dr. Fuentes 3:41 PM EDT [facility] Immediate Evaluation Core biopsy performed by: Dr. Nava Number of sticks: 5 This service has been rendered in part by a resident. A pathologist has personally reviewed the slides/tissue and has rendered and is responsible for diagnosis for the diagnosis that appears on the report. 5 3:41 PM EDT [facility] Clinical History metastesis to liver 5 3:41 PM EDT [facility] Procedure Type US 5 3:41 PM EDT [facility] Size/Description of Lesion liver tumor 5 3:41 PM EDT [facility] Cancer History Yes 5 3:41 PM EDT [facility] Gross Description A. LIVER, CT [...] Cold Time: 13m 5 3:41 PM EDT [facility] Note: A resident was involved in the service. I attest I examined the relevant preparations for the specimens and confirmed the diagnosis or interpretation. 5 3:41 PM EDT [facility] Clinical Information No Dx found. 5 3:41 PM EDT [facility] Fine Needle Aspirate Liver structure / Unknown Non-blood Collection / Unknown 11/18/2024 2:55 PM EDT 11/18/2024 3:20 PM EDT us Franko Nava MD LAB CYTOLOGY ORDERABLES Sonali barahona Result [facility] [address] [place] [address] * Type and screen (11/18/2024 9:33 AM [...] ORDERABLE S Final Result BLOOD BANK [address] [place] [address], * PERIPHERAL IV (SMARTFORM LINK) (11/18/2024 7:57 [...] LAB HEMATOLOGY METHOD 11/18/2024 6:06 AM EDT [facility] HCT 21.3(L) 34.0 - 45.0 % LAB HEMATOLOGY METHOD 11/18/2024 6:06 AM EDT [facility] Blood Venous blood specimen / Unknown Venipuncture / Unknown 11/18/2024 5:54 AM EDT 11/18/2024 6:04 AM EDT Karol Jane MD LAB BLOOD ORDERABLES Final Re sult [facility] [address] [place] [address] * US Abdomen RUQ (11/17/2024 2:00 PM [...] signing this report, I, the attending physician, attjimenathat I have personally reviewed the images/data for [...] - 35 sec 11/17/2024 1:44 PM EDT [facility] Blood Venous blood specimen / Unknown Venipuncture / Unknown 11/17/2024 1:25 PM EDT 11/17/2024 1:27 PM EDT Kareem Guidry MD LAB BLOOD ORDERABLES Fin al Result [facility] [address] [place] [address] * (ABNORMAL) PT-INR (11/17/2024 1:25 PM EDT) Only the most recent of3 resultswithin the time period is included. Pathologist [facility] Prothrombin Time 15.4(H) 12.0 - 14.3 sec 11/17/2024 1:43 PM EDT [facility] INR 1.2(H) 0.9 - 1.1 11/17/2024 1:43 PM EDT [facility] Blood Venous blood specimen / Unknown Venipuncture / Unknown 11/17/2024 1:25 PM EDT 11/17/2024 1:27 PM EDT Narrative [facility] - 11/17/2024 1:43 PM EDT OPTIMAL INR RANGES FOR PATIENT ON ORAL ANTICOAGULANT THERAPY Prevention of venous thromboembolism INR 2.0 to 3.0 In patients with heart disease: Atrial fibrillation INR 2.0 to 3.0 Valvular heart disease INR 2.0 to 3.0 Tissue heart valves INR 2.0 to 3.0 Mechanical prosthetic valves INR 2.5 to 3.5 Prevention of recurrent OK INR 2.5 to 3.5 us Kareem Guidry MD LAB BLOOD ORDERABLES [facility] al Result [facility] [address] [place] [address] * (ABNORMAL) CBC w/diff (11/17/2024 1:25 PM EDT) Only the most recent of3 resultswithin the time period is included. Pathologist [facility] WBC Count 12.34(H) 3.70 - 10.30 10*3/uL LAB HEMATOLOGY METHOD 11/17/2024 1:30 PM EDT [facility] RBC Count 3.19(L) 3.90 - 5.20 10*6/uL LAB HEMATOLOGY METHOD 11/17/2024 1:30 PM EDT [facility] HGB 8.4(L) 11.2 - 15.7 g/dL LAB HEMATOLOGY METHOD 11/17/2024 1:30 PM EDT [facility] HCT 27.1(L) 34.0 - 45.0 % LAB HEMATOLOGY METHOD 11/17/2024 1:30 PM EDT [facility] Platelet Count 308 155 - 369 10*3/uL LAB HEMATOLOGY METHOD 11/17/2024 1:30 PM EDT [facility] MCV 85 79 - 98 fL LAB HEMATOLOGY METHOD 11/17/2024 1:30 PM EDT [facility] MCH 26.3 26.0 - 32.0 pg LAB HEMATOLOGY METHOD 11/17/2024 1:30 PM EDT [facility] MCHC 31.0 30.7 - 35.5 g/dL LAB HEMATOLOGY METHOD 11/17/2024 1:30 PM EDT [facility] RDW 16.7(H) 11.5 - 14.5 % LAB HEMATOLOGY METHOD 11/17/2024 1:30 PM EDT [facility] MPV 9.6 8.8 - 12.5 fL LAB HEMATOLOGY METHOD 11/17/2024 1:30 PM EDT [facility] nRBC 0.0 <=0.0 per 100 WBCs LAB HEMATOLOGY METHOD 11/17/2024 1:30 PM EDT [facility] Differential Type Automated LAB HEMATOLOGY METHOD 11/17/2024 1:30 PM EDT [facility] Neutrophils % 80 % LAB HEMATOLOGY METHOD 11/17/2024 1:30 PM EDT [facility] Lymphocytes % 11 % LAB HEMATOLOGY METHOD 11/17/2024 1:30 PM EDT [facility] Monocytes % 5 % LAB HEMATOLOGY METHOD 11/17/2024 1:30 PM EDT [facility] Eosinophils % 1 % LAB HEMATOLOGY METHOD 11/17/2024 1:30 PM EDT [facility] Basophils % 1 % LAB HEMATOLOGY METHOD 11/17/2024 1:30 PM EDT [facility] Immature Granulocytes % 2 % LAB HEMATOLOGY METHOD 11/17/2024 1:30 PM EDT [facility] Neutrophils Absolute 10.04(H) 1.60 - 6.10 10*3/uL LAB HEMATOLOGY METHOD 11/17/2024 1:30 PM EDT [facility] Lymphocytes Absolute 1.31 1.20 - 3.90 10*3/uL LAB HEMATOLOGY METHOD 11/17/2024 1:30 PM EDT [facility] Monocytes Absolute 0.62 0.30 - 0.90 10*3/uL LAB HEMATOLOGY METHOD 11/17/2024 1:30 PM EDT [facility] Eosinophils Absolute 0.08 0.00 - 0.50 10*3/uL LAB HEMATOLOGY METHOD 11/17/2024 1:30 PM EDT [facility] Basophils Absolute 0.06 0.00 - 0.10 10*3/uL LAB HEMATOLOGY METHOD 11/17/2024 1:30 PM EDT [facility] Immature Granulocytes Absolute 0.23(H) 0.00 - 0.06 10*3/uL LAB HEMATOLOGY METHOD 11/17/2024 1:30 PM EDT [facility] Blood Venous blood specimen / Unknown Venipuncture / Unknown 11/17/2024 1:25 PM EDT 11/17/2024 1:27 PM EDT Narrative [facility] - 11/17/2024 1:30 PM EDT Therapeutic decision making should be based on absolute values, rather than percentages. Kareem Guidry MD LAB BLOOD ORDERABLES Fin al Result Performing Organization Address City/[facility] Co de Phone Number [facility] [address] [place] [address] * (ABNORMAL) Lipase (11/17/2024 1:25 PM EDT) Lipase, Plasma 14(L) 19 - 63 U/L 11/17/2024 1:50 PM EDT [facility] Blood Venous blood specimen / Unknown Venipuncture / Unknown 11/17/2024 1:25 PM EDT 11/17/2024 1:27 PM EDT Kareem Guidry MD LAB BLOOD ORDERABLES Fin al Result Performing Organization Address City/[facility]/ZIP Co de Phone Number [facility] [address] [place] [address] * (ABNORMAL) Ionized calcium, whole blood (11/14/2024 1:07 AM EDT) Only the most recent of3 resultswithin the time period is included. Ionized Calcium, Whole Blood 4.4(L) 4.6 - 5.1 mg/dL LAB HEMATOLOGY METHOD 11/14/2024 1:58 AM EDT [facility] Blood Venous blood specimen / Unknown Venipuncture / Unknown 11/14/2024 1:07 AM EDT 11/14/2024 1:50 AM EDT us Korey Rolle MD LAB BLOOD ORDERABLES Final Result Performing Organization Address [facility] Co de Phone Number [facility] [address] [place] [address] * (ABNORMAL) Fibrinogen (11/14/2024 1:07 AM EDT) Pathologist [facility] Fibrinogen, Quantitative (Clottable) 512(H) 208 - 459 mg/dL LAB COAGULATION METHOD 11/14/2024 2:09 AM EDT [facility] Blood Venous blood specimen / Unknown Venipuncture / Unknown 11/14/2024 1:07 AM EDT 11/14/2024 1:48 AM EDT Karol Jane MD LAB BLOOD ORDERABLES Final Re sult Performing Organization Address [facility] Co de Phone Number [facility] [address] [place] [address] * (ABNORMAL) Basic metabolic panel (11/14/2024 1:07 AM EDT) Only the most recent of5 resultswithin the time period is included. [facility] Glucose, Plasma 85 74 - 99 mg/dL 11/14/2024 2:18 AM EDT [facility] BUN, Plasma 12 7 - 21 mg/dL 11/14/2024 2:18 AM EDT [facility] Creatinine, Plasma 0.99 0.60 - 1.10 mg/dL 11/14/2024 2:18 AM EDT [facility] BUN/Creatinine Ratio 12 11/14/2024 2:18 AM EDT [facility] Sodium, Plasma 142 136 - 145 mmol/L 11/14/2024 2:18 AM EDT [facility] Potassium, Plasma 3.7 3.6 - 4.9 mmol/L 11/14/2024 2:18 AM EDT [facility] Chloride, Plasma 108(H) 97 - 107 mmol/L 11/14/2024 2:18 AM EDT [facility] CO2, Plasma 21(L) 22 - 29 mmol/L 11/14/2024 2:18 AM EDT [facility] Anion Gap 13 6 - 16 mmol/L 11/14/2024 2:18 AM EDT [facility] Total Calcium, Plasma 8.1(L) 8.9 - 10.2 mg/dL 11/14/2024 2:18 AM EDT [facility] eGFRcr 71.4 mL/min/1.7 3m*2 11/14/2024 2:18 AM EDT [facility] Comment:Reported eGFRcr in m L/min/1.73m2 is based the CKD-EPI 2020 equation that does not use a race coefficient. Blood Venous blood specimen / Unknown Venipuncture / Unknown 11/14/2024 1:07 AM EDT 11/14/2024 1:49 AM EDT Korey Rolle MD LAB BLOOD ORDERABLES Final Result [facility] [address] [place] [address] * Comprehensive GI Panel by PCR (11/11/2024 8:01 PM EDT) Campylobacter PCR Result Not Detected Not Detected 11/12/2024 5:52 AM EDT [facility] Plesiomonas shigelloides PCR Result Not Detected Not Detected 11/12/2024 5:52 AM EDT [facility] Salmonella PCR Result Not Detected Not Detected 11/12/2024 5:52 AM EDT [facility] Vibrio species PCR Result Not Detected Not Detected 11/12/2024 5:52 AM EDT [facility] Vibrio cholerae PCR Result Not Detected Not Detected 11/12/2024 5:52 AM EDT [facility] Yersinia enterocolitica PCR Result Not Detected Not Detected 11/12/2024 5:52 AM EDT [facility] Enteroaggregative E. coli (EAEC) PCR Result Not Detected Not Detected 11/12/2024 5:52 AM EDT [facility] Enteropathogenic E. coli (EPEC) PCR Result Not Detected Not Detected 11/12/2024 5:52 AM EDT [facility] Enterotoxigenic E. coli (ETEC) lt/st PCR Result Not Detected Not Detected 11/12/2024 5:52 AM EDT [facility] Shiga-like Toxin-Producing E.coli (STEC) stx1/stx2 PCR Resu Not Detected Not Detected 11/12/2024 5:52 AM EDT [facility] E coli 0157 PCR Result Not Detected Not Detected 11/12/2024 5:52 AM EDT [facility] Shigella/Enteroinvas christal E. coli (EIEC) PCR Result Not Detected Not Detected 11/12/2024 5:52 AM EDT [facility] Cryptosporidium PCR Result Not Detected Not Detected 11/12/2024 5:52 AM EDT [facility] Cyclospora cayetanensis PCR Result Not Detected Not Detected 11/12/2024 5:52 AM EDT [facility] Entamoeba histolytica PCR Result Not Detected Not Detected 11/12/2024 5:52 AM EDT [facility] Giardia duodenalis (aka Giardia lamblia) PCR Result Not Detected Not Detected 11/12/2024 5:52 AM EDT [facility] Adenovirus F 40/41 PCR Result Not Detected Not Detected 11/12/2024 5:52 AM EDT [facility] Astrovirus PCR Result Not Detected Not Detected 11/12/2024 5:52 AM EDT [facility] Norovirus GI/GII PCR Result Not Detected Not Detected 11/12/2024 5:52 AM EDT [facility] Rotavirus A PCR Result Not Detected Not Detected 11/12/2024 5:52 AM EDT [facility] Sapovirus PCR Result Not Detected Not Detected 11/12/2024 5:52 AM EDT [facility] Stool Rectum structure / Unknown Non-blood Collection / Unknown 11/11/2024 8:01 PM EDT 11/11/2024 8:13 PM EDT [facility] - 11/12/2024 5:52 [...] GENERAL ORDERABLES Final Result Performing Organization Address [facility] Co de Phone Number [address] [address] * Clostridiodes (Clostridium) difficile PCR (11/11/2024 8:01 PM EDT) C difficile PCR toxin B gene DNA Result Not Detected Not Detected 11/11/2024 9:22 PM EDT [facility] Stool Rectum structure / Unknown Non-blood Collection / Unknown 11/11/2024 8:01 PM EDT 11/11/2024 8:13 PM EDT Narrative [facility] - 11/11/2024 9:22 PM EDT [...] GENERAL ORDERABLES Final Result Performing Organization Address [facility] Co de Phone Number [address] [address] * CT Chest wo IV Contrast (11/11/2024 [...] MD on 11/11/2024 10:17 AM Jennifer Capps APRN IMG CT PROCEDURES Final R esult * Sodium, urine, random (11/11/2024 3:34 AM EDT) Sodium, Urine 76 mmol/L 11/11/2024 4:13 AM EDT [facility] Urine Urine specimen obtained by clean catch procedure / Unknown Non-blood Collection / Unknown 11/11/2024 3:34 AM EDT 11/11/2024 3:43 AM EDT Morelia Galvez MD LAB URINE ORDERABLES Final Result Performing Organization Address City/[facility]/ZIP Co de Phone Number [facility] [address] [place] [address] * Creatinine, urine, random (11/11/2024 3:34 AM EDT) Creatinine, Urine 105 mg/dL 11/11/2024 4:13 AM EDT [facility] Urine Urine specimen obtained by clean catch procedure / Unknown Non-blood Collection / Unknown 11/11/2024 3:34 AM EDT 11/11/2024 3:43 AM EDT Morelia Galvez MD LAB URINE ORDERABLES Final Result [facility] [address] [place] [address] * CT Abdomen Pelvis w IV Contrast [...] (series 3, image 74 and series 5, [id number]) , previously measured 9.0 x 6.1 x [...] - 99 mg/dL 11/09/2024 7:13 AM EDT [facility] Comment:Accuracy of a glucos e result [...] for testing. Comment 11/09/2024 7:13 AM EDT [facility] Armor Officer ID Justine Singh 11/09/2024 7:13 AM EDT [facility] Device ID [id number] 11/09/2024 7:13 AM EDT [facility] Specimen Type POC Capillary 11/09/2024 7:13 AM EDT [facility] Blood Capillary blood specimen / Unknown 11/09/2024 7:12 AM EDT 11/09/2024 7:13 AM EDT us Morelia Galvez MD LAB POINT OF CARE TEST DOCKED DEVICE UNSOLICITED RESULTS Final Result Performing Organization Address [facility] de Phone Number [facility] [address] [place] [address] * (ABNORMAL) Troponin T, High Sensitivity, 2 Hour, Plasma (11/08/2024 3:17 PM EDT) Troponin T, High Sensitivity, 2 Hour 17(H) <14 ng/L 11/08/2024 3:51 PM EDT [facility] Troponin Delta 3 <10 ng/L 11/08/2024 3:51 PM EDT [facility] Troponin Delta Interpretation Not Significant 11/08/2024 3:51 PM EDT [facility] Comment:Not Significant. No acute change in troponin observed between the baseline and 2 hour samples. Blood Venous blood specimen / Unknown Venipuncture / Unknown 11/08/2024 3:17 PM EDT 11/08/2024 3:24 PM EDT us Blaire Fuchs MD LAB BLOOD ORDERABLES Final R esult Performing Organization Address City/[facility] Co de Phone Number [facility] [address] [place] [address] * Heparin level (11/08/2024 1:57 PM EDT) Anti Xa Level Unfractionated Heparin <0.11 <1.00 IU/mL LAB COAGULATION METHOD 11/08/2024 2:26 PM EDT [facility] Blood Venous blood specimen / Unknown Venipuncture / Unknown 11/08/2024 1:57 PM EDT 11/08/2024 2:07 PM EDT Narrative [facility] - 11/08/2024 2:26 PM EDT Therapeutic Range: UFH Full Dose and ACS/OK protocols*: 0.30 - 0.70 IU/mL UFH Low Dose protocol*: 0.25 - 0.50 IU/mL UFH prophylaxis: Not established us Blaire Fuchs MD LAB BLOOD ORDERABLES Final R esult [facility] [address] [place] [address] * US Abdomen Focused Region GB, Bile [...] 1/2 Differentiation (11/08/2024 1:12 PM EDT) Pathologist [facility] HIV 1 & 2 Antibody/Antigen Screen Non Reactive Non Reactive 11/08/2024 2:06 PM EDT [facility] Comment:Screening for HIV 1 & 2 antibodies, and P24 antigen is NONREACTIVE. No confirmatory testing is required. Blood Venous blood specimen / Unknown Venipuncture / Unknown 11/08/2024 1:12 PM EDT 11/08/2024 1:24 PM EDT us Blaire Fuchs MD LAB BLOOD ORDERABLES Final R esult Performing Organization Address City/[facility]/ZIP Co de Phone Number [facility] [address] [place] [address] * (ABNORMAL) Troponin now and 120 min (11/08/2024 1:12 PM EDT) [facility] Troponin T, High Sensitivity, 0 Hour 14(H) <14 ng/L 11/08/2024 1:55 PM EDT [facility] Blood Venous blood specimen / Unknown Venipuncture / Unknown 11/08/2024 1:12 PM EDT 11/08/2024 1:25 PM EDT us Blaire Fuchs MD LAB BLOOD ORDERABLES Final R esult [facility] [address] [place] [address] * (ABNORMAL) BNP (11/08/2024 1:12 PM EDT) [facility] N-Terminal, PROBNP, Plasma 523(H) 0 - 449 pg/mL 11/08/2024 1:55 PM EDT [facility] Blood Venous blood specimen / Unknown Venipuncture / Unknown 11/08/2024 1:12 PM EDT 11/08/2024 1:25 PM EDT us Blaire Fuchs MD LAB BLOOD ORDERABLES Final R esult [facility] [address] [place] [address] * EKG now - STAT (adult) (11/08/2024 11:25 AM EDT) Pathologist [facility] EKG DIAGNOSIS CLASS Borderline Abnormal MUSE ECG Ventricular Rate 94 BPM MUSE ECG Atrial Rate 94 BPM MUSE ECG WA Interval 128 ms MUSE ECG QRSD Interval 100 ms MUSE ECG QT Interval 364 ms MUSE ECG QTC Interval 455 ms MUSE ECG P [place] 65 degrees MUSE ECG R [place] 11 degrees MUSE ECG T Wave [place] 8 degrees MUSE ECG Diagnosis Normal sinus rhythm MUSE ECG Diagnosis RSR' V1, is likely a normal variant MUSE ECG Diagnosis Borderline ECG MUSE ECG Diagnosis MUSE ECG Diagnosis Confirmed by Yovani Liu ([id number]) on 11/09/2024 9:56:32 AM MUSE ECG 11/08/2024 11:2 5 AM EDT 11/09/2024 9:56 AM EDT us Blaire Fuchs MD ECG ORDERABLES Final Result Performing Organization Address City/[facility]/ZIP Co de Phone Number MUSE ECG * US OUTSIDE IMAGES (11/08/2024 7:00 AM EDT) Only the most recent of2 resultswithin the time period is included. Anatomical Region Laterality Modality Ultrasound 11/08/2024 7:00 AM EDT us External Provider IMG US PROCEDURES Final Result * Taylor Hepatitis C Antibody (12/16/2017 9:07 PM EDT) Pathologist [facility] [place] Hepatitis C Ab BEING REPEATED TO CONFIRM SUNQUEST 12/16/2017 9:07 PM EDT 12/16/2017 9:17 PM EDT Emmanuelle Thomason MD LAB BLOOD ORDERABLES Final [...] updated to appropriate status: Yes Care Teams Gun Stocker Relationship Specialty Start Date End Date Pcp, No [address] [place] [address] PCP - General Family Medicine 06/16/23
[2024-12-23 09:11] LABS: Hematocrit 31.8 % (37.0-47.0); Hemoglobin 9.9 g/dL (12.2-16.2); Immature Granulocytes % 0.8 %; Mean Corpuscular HGB Conc 31.1 g/dL (31.8-35.4); Mean Corpuscular Hemoglobin 27.0 pg (27.0-31.2); Mean Corpuscular Volume 86.6 fl (81-99); Nucleated Red Blood Cells % 0 %; Platelet Count 231 K/mm3 (142-424); Red Blood Count 3.67 M/mm3 (4.20-5.40); Red Cell Distribution Width-SD 52.1 fL; White Blood Count 7.9 K/mm3 (4.8-10.8)
[2024-12-23 09:19] LABS: Alanine Aminotransferase 12 U/L (12-78); Albumin Level 3.5 g/dl (3.5-5.0); Albumin/Globulin Ratio 1.2 (1.1-1.8); Alkaline Phosphatase 247 U/L (38-126); Anion Gap 14.7 mEq/L (5-15); Aspartate Amino Transferase 30 U/L (14-36); Bilirubin,Total 1.1 mg/dl (0.2-1.3); Blood Urea Nitrogen 9 mg/dl (7-17); Calcium 8.5 mg/dl (8.4-10.2); Carbon Dioxide 22 mmol/L (22.0-30.0); Chloride 105 mmol/L (98-107); Creatinine,Serum 0.70 mg/dl (0.52-1.04); Estimated Glomerular Filt Rate 90 ml/min (>60); GFR (African American) 109 ML/MIN (>60); Globulin 3.0 g/dL (1.3-3.2); Glucose 108 mg/dl (74-100); Potassium 3.7 mmoL/L (3.5-5.1); Sodium 138 mmol/L (136-145); Total Protein,Serum 6.5 g/dl (6.3-8.2)
[2024-12-23] MEDS: DEXAMETHASONE 4MG TABLET 12 MG (09:29)
[2024-12-23] MEDS: ACETAMINOPHEN 325MG TAB 650 MG (09:29)
[2024-12-23] MEDS: LORATADINE 10MG TABLET 10 MG PO (09:29)
[2024-12-23] MEDS: FAMOTIDINE 20MG TABLET 20 MG (09:29)
[2024-12-23] MEDS: PACLITAXEL IV (10:24)
[2024-12-23] MEDS: WATER IV (10:24)
[2024-12-23] MEDS: DEXTROSE 5% IV (10:24)
[2024-12-23] MEDS: SODIUM CHLORIDE 0.9% 100ML BAG 100 ML IV (10:25)
[2024-12-23] MEDS: SODIUM CHLORIDE 0.9% IV (13:30)
[2024-12-23] MEDS: CARBOPLATIN IV (13:30)
== END 2024-12-23 23:59 | disposition home or self-care (01) ==
LOC: INF 08:47
PROVIDERS: PCP Internal Medicine; Visit Provider Internal Medicine Medical Oncology
DX: C55 Malignant neoplasm of uterus, part unspecified (principal); C80.1 Malignant (primary) neoplasm, unspecified; Z51.11 Encounter for antineoplastic chemotherapy
CPT/HCPCS: 80053; 85025; 96413; 96415; 96417; J7050; J7060; J8540; J9045; J9267

== ENCOUNTER 2025-01-13 08:41 | Outpatient (CLI) | payer MEDICAID, SELFPAY ==
--- OUTSIDE RECORDS SUMMARY | 2024-11-08 10:13 | XMS_ITS | Encounter Summary ---
Author Organization [facility] Address [address] [place] [address] Care Team Providers Care Digital Marketing Coordinator Name Role Phone Pcp, No Primary Care Provider Unavailabl e Reason for Referral * Imaging (Routine) - Closed Specialty Diagnoses / Procedures Referred By Contac t Referred To Contact Radiology Diagnoses Metastasis to liver Procedures US Guided Needle Biopsy Liver CT Guided Biopsy Liver Franko Nava MD [address] [place] [address] Phone: tel: fax: Referral ID Status Reason Start Date Expiration Date Visits Re quested Visits Authorized [id number] Closed 11/14/2024 05/16/2026 1 1 * Imaging (Routine) - Closed Specialty Diagnoses / Procedures Referred By Contac t Referred To Contact Radiology Diagnoses Metastasis to liver Procedures IR Embolization Tumor or Ischemia or Infarction Franko Nava MD [address] [place] [phone] Phone: tel: fax: Referral ID Status Reason Start Date Expiration Date Visits Re quested Visits Authorized [id number] Closed 11/14/2024 05/16/2026 1 1 Reason for Visit * Reason Comments Multiple Complaints * Auth/Cert (Routine) Specialty Diagnoses / Procedures Referred By Contac t Referred To Contact Diagnoses SBO (small bowel obstruction) H/O cholelithiasis Other cholelithiasis without obstruction JOSIAS, symptomatic chololithiasis Rui Leonard, DO [address] [address] Phone: tel: fax: [facility] Inpatient [address] [place] [address] Phone: tel: Referral ID Status Reason Start Date Expiration Date Visits Re quested Visits Authorized [id number] 1 1 Encounter Details Date Type Department Care Team (Late st Contact Info) Description 11/08/2024 11:13 AM EDT - 11/14/2024 8:50 PM EDT Hospital Encounter [facility] Inpatient [address] [place] [phone] Long Rios MD [address] [place] [address] Mi Pascal, DO [address] [place] [id number] Rui Leonard, DO [address] [address] Morelia Galvez MD [address] [address] Korey Rolle MD [address] [facility] [address] [place] [phone] Karol Jane MD [address] [facility] [address] [place] [address] Metastasis to liver (CMS/HCC) (Primary Dx); Calculus [...] any time in the past 12 m [facility], were you homeless or living in a fdc (including now)? No 11/11/2024 [facility] Utilities Answer Date Recorded In the past 12 months has th e [employer], gas, oil, or water [employer] threatened to shut off services in your [...] call: Vascular & Interventional Radiology Clinic at [phone] Sunday - Sunday 8:00 AM to 4:30 PM After hours, weekends, and holidays please call [phone] and ask for the Interventional Radiology provider/Resident on-call For Emergencies please go to the nearest Emergency Room or dial 911. Intervention Radiology Appointments: If you need to reschedule a procedure, please call our Schedulers at [phone], option 4. If you need to schedule or reschedule a clinic appointment, please call [phone]. [facility] Vascular and Interventional Radiology Clinic [facility] [address] [place] [address] Follow-Up / Post Discharge Instructions Medication Recommendations: - Okay to resume home medications - Take all medications as prescribed. - Acetaminophen (Tylenol) 650mg every 4-hrs alternating with ibuprofen 600mg every 6hrs for pain control. - Take oxycodone 5mg q4h prn pain Call MD oncology transplant network manager for GYO service if: - you have a fever of 100.4 F or more - vaginal bleeding similar to a period - uncontrolled pain - difficulty with urination - persistent nausea/vomiting Follow up: Dr. Karol Jane - [facility] [address] [facility] [address], [place] [address] documented in this encounter Medications at Time [...] [facility]CM TUBAL LIGATION N/A Tubal ligation from [facility] [3] Social History Tobacco Use Smoking status: [...] been discussed with the patient and/or their in store marketing representative. All questions answered and they agree [...] mg Oral q6h LIAT Jennifer Capps E, INTERNATIONAL ACCOUNT EXECUTIVE 500 mg at 11/13/24 1810 benzocaine-menthol (Chloraseptic) 6-10 MG lozenge 1 lozenge 1 lozenge Mouth/Throat q4h PRN Morean Gray MD 1 lozenge at 11/11/24 0044 [...] mg Oral 4x daily Jennifer Capps E, INTERNATIONAL ACCOUNT EXECUTIVE 500 mg at 11/13/24 2019 metoclopramide (Reglan) [...] Travel Screening No screening recorded since 11/12/24 3322 Travel History Travel since 10/13/24 No documented [...] SCM TUBAL LIGATION N/A Tubal ligation from [facility] [3] Social History Tobacco Use Smoking status: [...] 500 mg Oral q6h LIAT Jennifer Capps, INTERNATIONAL ACCOUNT EXECUTIVE 500 mg at 11/13/24 1810 benzocaine-menthol (Chloraseptic) [...] 500 mg Oral 4x daily Jennifer Capps, INTERNATIONAL ACCOUNT EXECUTIVE 500 mg at 11/13/24 2019 metoclopramide (Reglan) [...] Jane MD PCP name and Address: Pcp, [place] [address] Referring provider name and address: Choco Roy, [address] [place] [address] Chief Concern, Brief History of Present Illness, and Hospital Course Radha Aparicio is a 44 y.o. female with history of high grade endometroid adenocarcinoma that previously saw the [facility] team and was lost to follow up. [...] follow up scheduled with Dr. Veloz at [facility] on 11/25. Surgeries and Procedures [...] Your Medications These medications were sent to [facility] [place], [place] - [address] [facility] [address] acetaminophen 500 MG tablet ondansetron ODT 4 [...] oxycodone 5mg q4h prn pain Call MD oncology transplant network manager for GYO service if: - you have a fever of 100.4 F or more - vaginal bleeding similar to a period - uncontrolled pain - difficulty with urination - persistent nausea/vomiting Follow up: Dr. Karol Jane - [facility] [address] [facility], [address], [place] [address] Outpatient Follow-Up Future Appointments Date Time Provider Department Center 11/14/2024 2:30 PM [facility] Discharge Disposition/Condition Disposition: Home Condition: [...] Note Radha Aparicio 44 y.o. female CSN: [id number] Admission: 11/08/2024 11:13 AM Primary Problem: Calculus of gallbladder without cholecystitis without obstruction Primary Corporate Health Consultant: self/family Assistance Available at Discharge: Kaushal Aparicio (Brother) and her dad Current Outpatient/Agency/Support Group: clinic(s) Availability of Care Givers (#Hours): 24 hours Family/Corporate Health Consultant(s) Willingness Assessed to care for patient at home: Yes Family/Corporate Health Consultant(s) Readiness Assessed to care for patient at [...] team. Patient reports home assistance and transport. [id number] enrollment complete. Radha Langston RN * Progress [...] per chart review) with Dr. Veloz at [facility] - Lost to follow up [...] several large liver lesions (right dome -- [id number] (enlarged from 4.7 x 4.2) & 10.5 [...] to follow. Please messageon-call GYO resident via [employer] Secure Chat or page [phone] for questions or concerns regarding this patient's GYO care. Morena Gray MD Obstetrics & Gynecology, PGY-2 [facility] Cosigned by Karol Jane MD at 11/14/2024 [...] per chart review) with Dr. Veloz at [facility] - [facility] to follow up [...] several large liver lesions (right dome -- [id number] (enlarged from 4.7 x 4.2) & 10.5 [...] to follow. Please messageon-call GYO resident via [employer] Secure Chat or page [phone] for questions or concerns regarding this patient's GYO care. Morena Gray MD Obstetrics & Gynecology, PGY-2 [facility] Cosigned by Karol Jane MD at 11/14/2024 [...] semipermeable dressing * Care Plan - Jennifer Garcia - 11/12/2024 11:55 PM EDT Problem: Adult [...] Interventions: pain management plan reviewed with patient/caregiver [id number] dosing utilized Intervention: Provide Person-Centered Care Flowsheets [...] per chart review) with Dr. Veloz at [facility] - [facility] to follow up [...] several large liver lesions (right dome -- [id number] (enlarged from 4.7 x 4.2) & 10.5 [...] to follow. Please messageon-call GYO resident via [employer] Secure Chat or page [phone] for questions or concerns regarding this patient's GYO care. Morena Gray MD Obstetrics & Gynecology, PGY-2 [facility] Cosigned by Karol Jane MD at 11/12/2024 [...] Note Radha Aparicio 44 y.o. female CSN: [id number] Admission: 11/08/2024 11:13 AM Primary Problem: Calculus of gallbladder without cholecystitis without obstruction Nursery Nurse reviewed chart and spoke with patient to complete this Initial Case Management Assessment. PCP: Dr. Benny Gonzalez Emergency Contact: Extended Emergency Contact Information Primary Emergency Contact: Kaushal Aparicio Mobile Relation: Brother Preferred language: Cook Islander Oncology Transplant Network Manager needed? No Insurance: Primary Visit Coverage Payer Plan Sponsor Code Group Number Group Name [employer] [facility] . Primary Visit Coverage Subscriber Subscriber ID Subscriber Name Subscriber N Subscriber Address [id number] RADHA APARICIO [id number] [place] [address] Patient information: admit to with history of high grade endometroid adenocarcinoma previously admitted to Surgery for cholelithiasis. Confirmed home address and insurance information. Reports home assistance and transport. Pharmacy: [facility] Accompanied by/Relationship: aunt Jennifer and Clara at bedside for visit. Support System: Immediate family Daily Living Activities: Functional Status: Independent Living Arrangements: Parent/Yonatanan (reports she lives with her dad Conor) Type of Residence: Private residence [address] [place] [address] Current DME: Equipment Currently Used at Home: [...] Dialysis Services: none Living Will/Advance Directive/Power of Pencils Washer /Guardian: none Advance Directive: Not applicable Information [...] 11:30 AM EDT Associated Problem(s): Endometrial cancer Pattern Ruler Onc consultation * Progress Notes - Socrates Garnica MD - 11/11/2024 11:28 AM EDT 11/11/24 Radha Stocktremayne Aparicio HPI Radha Aparicio is a 44 y.o. 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 Morelia Galvez MD, FACS tank charger Trauma Acute Care Surgery * Care Plan [...] per chart review) with Dr. Veloz at [facility] [place] to follow up [...] several large liver lesions (right dome -- [id number] (enlarged from 4.7 x 4.2) & 10.5 [...] to follow. Please messageon-call GYO resident via [employer] Secure Chat or page [phone] for questions or concerns regarding this patient's GYO care. Morena Gray MD Obstetrics & Gynecology, PGY-2 [facility] Cosigned by Korey Rolle MD at 11/11/2024 [...] 11/10/20242309) Pain Management Interventions: medication (see MAR) [id number] dosing utilized pain management plan reviewed with patient/caregiver Intervention: Provide Person-Centered Care Flowsheets (Taken 11/10/20242309) Trust Relationship/Rapport: care explained empathic listening provided * Transfer of Care - Socrates Garnica MD - 11/10/2024 2:33 PM EDT Radha Aparicio is a 44 y.o. female with history of endometrial cancer with possible metastasisto the liver presenting to [facility] on 11/08/2024 with one week of nausea, vomiting, anorexia, and RUQ pain. US and CT demonstrated cholelithiasis and increase in interval of her liver metastaticlesion. Interval: VSS. AF. She continues to have RUQ pain though improved today. States that she continues to have nausea but currently no vomiting. Has been able to tolerate some small food by mouth today. Will transfer care to Pattern Ruler Onc today given patient history and clinical picture. Patient tolerating PO at time of transfer. Javier Garnica MD PGY-1, [facility] * Assessment & Plan Note - Morelia [...] 1:52 PM EDT Associated Problem(s): Endometrial cancer Pattern Ruler Onc consultation * Progress Notes - Socrates Garnica MD - 11/10/2024 11:20 AM EDT 11/10/24 Radha tSockn Markus is a 44 y.o. female with history of endometrial cancer with possible metastasisto the liver presenting to [facility] on 11/08/2024 with one week of nausea, vomiting, anorexia, and RUQ pain. US and CT demonstrated cholelithiasis and increase in interval of her liver metastaticlesion. Interval: VSS. AF. She continues to have RUQ pain though improved today. States that she continues to have nausea but currently no vomiting. Has been able to tolerate some small food. Likely not gallbladder related. 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 Morelia Galvez MD, FACS tank charger Trauma Acute Care Surgery * Consults - Michelle Ramos MD - 11/10/2024 10:11 AM EDTAssociated Order(s): IP CONSULT TO INTERVENTIONAL RADIOLOGY 11/10/24 Patient: Radha Aparicio Date of : 1980/44 y.o. Requesting Service: ATHLETIC FIELD CUSTODIAN Chief complaint Abdominal pain and increase in [...] this patient. Michelle Ramos MD Interventional Radiology [phone] [1] Past Medical History: Diagnosis Date Disease of salivary gland, unspecified Parotid mass [2] Past Surgical History: Procedure Laterality Date HYSTERECTOMY N/A Hysterectomy from [facility] TUBAL LIGATION N/A Tubal ligation from [facility] [3] Social History Tobacco Use Smoking status: [...] per chart review) with Dr. Veloz at [facility] to follow up [...] several large liver lesions (right dome -- [id number] (enlarged from 4.7 x 4.2) & 10.5 [...] to follow. Please messageon-call GYO resident via [employer] Secure Chat or page [phone] for questions or concerns regarding this patient's GYO care. Morena Gray MD Obstetrics & Gynecology, PGY-2 [facility] Cosigned by Korey Rolle MD at 11/10/2024 [...] 11/09/2024 9:18 PM EDT 11/09/24 Radha Aparicio [facility] Radha Aparicio is a 44 y.o. female with history of endometrial cancer with possible metastasisto the liver presenting to [facility] on 11/08/2024 with one week of nausea, vomiting, anorexia, and RUQ pain. US and CT demonstrated cholelithiasis and increase in interval of her liver metastaticlesion. Interval: VSS. AF. She continues to have RUQ. States that she continues to have nausea but currently no vomiting. Has not been able to tolerate food well. Family expressed frustration of not knowingexactly what is going on. Pattern Ruler Onc consulted due do increase in size [...] Airway None Output by Drain (mL) 11/07/24 0700 - 11/07/24 18511/07/24 1900 - 11/08/24 0659 11/08/24 0700 - 11/08/24 1859 11/08/24 1900 [...] Plan: [ ] f/u liver biopsy - Pattern Ruler-Onc consulted: IR consult for guided biopsy of [...] CT abdomen and pelvis completed and reviewed Pattern Ruler Onc consultation I do not think her abdominal pain is consistent with acute cholecystitis and we discussed with the patient we would not proceed with operative intervention at this time Morelia Galvez MD, FACS tank charger Trauma Acute Care Surgery * Procedures - [...] on imaging. [facility] [...] for characterization. She has followed up with OS onc provider since then. She reports he [...] per chart review) with Dr. Veloz at [facility] to follow up [...] several large liver lesions (right dome -- [id number] (enlarged from 4.7 x 4.2) & 10.5 [...] follow.. Please message on-call GYO resident via [employer] Secure Chat or page [phone] for questions or concerns regardingthis patient's care. Christine Morrison MD Obstetrics and Gynecology, PGY-3 [1] Past Medical History: Diagnosis Date Disease of salivary gland, unspecified Parotid mass [2] Past Surgical History: Procedure Laterality Date HYSTERECTOMY N/A Hysterectomy from [facility] TUBAL LIGATION N/A Tubal ligation from [facility] [3] Family History Problem Relation Name Age [...] Disorder Social Drivers of Health Received from [facility] Family and Community Support Received from [facility] Abuse Screen Received from [facility] Housing Stability [5] Allergies Allergen Reactions Carboplatin [...] of nausea are kept under control during 2391-7614 shift Individualized Care Needs: nausea/vomiting management Anxieties, [...] Monitor Pain and Promote Comfort Flowsheets (Taken 11/09/20241029) Pain Management Interventions: quiet environment facilitated rest relaxation techniques promoted Intervention: Provide Person-Centered Care Flowsheets (Taken 11/09/20241029) Trust Relationship/Rapport: care explained questions answered questions encouraged reassurance provided empathic listening provided emotional support provided choices provided thoughts/feelings acknowledged Problem: Fall Injury Risk Goal: Absence of Fall and Fall-Related Injury Outcome: Ongoing, Progressing Intervention: Identify and Manage Contributors Flowsheets (Taken 11/09/2024 1030) Medication Review/Management: medications reviewed Self-Care Promotion: independence encouraged Intervention: Promote Injury-Free Environment Flowsheets (Taken 11/09/20241029) Safety Promotion/Fall Prevention: fall prevention program maintained activity supervised safety round/check completed clutter-free environment maintained Problem: Pain Acute Goal: Optimal Pain Control and Function Outcome: Ongoing, Progressing Intervention: Optimize Psychosocial Wellbeing Flowsheets (Taken 11/09/20241029) Supportive Measures: active listening utilized relaxation techniques promoted Diversional Activities: television Spiritual Activities Assistance: affirmation provided Intervention: Develop Pain Management Plan Flowsheets (Taken 11/09/20241029) Pain Management Interventions: quiet environment facilitated rest relaxation techniques promoted Intervention: Prevent or Manage Pain Flowsheets (Taken 11/09/20241029) Sleep/Rest Enhancement: awakenings minimized relaxation techniques promoted room darkened Medication Review/Management: medications reviewed Problem: Electrolyte Imbalance Goal: Electrolyte Balance Outcome: Ongoing, Progressing Intervention: Monitor and Manage Electrolyte Imbalance Flowsheets (Taken 11/09/20241029) Fluid/Electrolyte Management: intravenous fluid replacement initiated fluids provided * Hospital Course - Laxmi Garrido MD - 11/09/2024 6:45 AM EDT Radha Aparicio is a 44 y.o. female with history of high grade endometroid adenocarcinoma [facility] and was lost to follow [...] follow up scheduled with Dr. Veloz at [facility] on 11/25. * Care Plan [...] with possible metastasisto the liver presenting to [facility] on 11/08/2024 with one week of nausea, [...] that worsens after eating. She presented to [facility] a week ago for these symptoms, and was discharged after one day. She presented to the OSH again today, and was transferred to [facility] for concerns forcholelithiasis vs. PE. OSH was [...] Ducts Once Acknowledged J LUIS TORRES 11/08/24 124 ED Protocol - HIV 1/2 Antibody/Antigen Screen [...] patient was was signed out to the [facility] provider (Signed Out) Patient care assumed by [facility] Armaan campbell, at shift change, tentative plan at the time of sign-out was pending [facility] recs ED Prescriptions None - Hugo Meehan, MS4 [1] Past Medical History: Diagnosis Date Disease of salivary gland, unspecified Parotid mass [2] Past Surgical History: Procedure Laterality Date HYSTERECTOMY N/A Hysterectomy from [facility] TUBAL LIGATION N/A Tubal ligation from [facility] [3] Family History Problem Relation Name Age [...] None Disposition Admit Admitting/Attending Physician: RUI LEONARD [[id number]] Provider Care Team: [facility] GENERAL SURGERY FLOOR 1 [271] Are [...] EST Appointment [facility] Radiology [address] [place] [address] 03/19/2025 1:45 PM EST Office Visit [facility] Gynecology [address] [place] [address] Karol Jane MD [address] [facility] [address] [place] [address] Scheduled Orders Name Type Priority Associated Diagnoses [...] Name Priority Date/Time Associated Diagnosis Comments CARIS IL TUMOR SEEK HYBRID + IHCS AND OTHER [...] concern for intratumoral hemorrhage. Patient presents to [facility] for bland embolization of tumor. Additionally, rebiopsy of liver mass is planned due to possible progression. TECHNIQUE: Fur Trimming Machine Operator: Franko Nava MD Secondary Street Light Cleaner: Luis Miguel Estes M.D. Rad Dose: 1674 [...] 5 F vascular sheath. Using a 5 Haitian contra 2 catheter, the celiac axis was [...] concern for intratumoral hemorrhage. Patient presents to [facility] [place] embolization of tumor. Additionally, rebiopsy of liver mass isplanned due to possible progression. TECHNIQUE: Fur Trimming Machine Operator: Franko Nava MD Secondary Street Light Cleaner: Luis Miguel Estes M.D. Rad Dose: 1674 [...] 5 F vascular sheath. Using a 5 Haitian contra 2catheter, the celiac axis was catheterized. [...] concern for intratumoral hemorrhage. Patient presents to [facility] for bland embolization of tumor. Additionally, rebiopsy of liver mass is planned due to possible progression. TECHNIQUE: Fur Trimming Machine Operator: Franko Nava MD Secondary Street Light Cleaner: Luis Miguel Estes M.D. Rad Dose: 1674 [...] 5 F vascular sheath. Using a 5 Haitian contra 2 catheter, the celiac axis was [...] concern for intratumoral hemorrhage. Patient presents to [facility] [place] embolization of tumor. Additionally, rebiopsy of liver mass isplanned due to possible progression. TECHNIQUE: Fur Trimming Machine Operator: Franko Nava MD Secondary Street Light Cleaner: Luis Miguel Estes M.D. Rad Dose: 1674 [...] 5 F vascular sheath. Using a 5 Haitian contra 2catheter, the celiac axis was catheterized. [...] PROCEDURES Final Resu lt * (ABNORMAL) Caris [place] Cancer Seek Hybrid??? + IHCs and Other Tests by Tumor Type (11/18/2024 2:55 PM EDT) CRISTOBAL PD-L1 (22C3) Negative 2024 1:58 PM EDT [facility] CARRolith Mismatch Repair Status Proficient (Intact) 11/30/2024 1:58 PM EDT [facility] CARRolith Genomic Loss of Heterozygosity - [place] Low 1% 11/30/2024 1:58 PM EDT [facility]RISTOB[facility] Microsatellite Instability - [place] Stable 11/30/2024 1:58 PM EDT [facility] Tumor Mutational [place] - [place] Low 1 per Mb 11/30/2024 1:58 PM EDT [facility] Estrogen Receptor Positive 11/30/2024 1:58 PM EDT [facility] CRSITOBAL Her2/Shoaib Negative 11/30/2024 1:58 PM EDT [facility] Progesterone Receptor Negative 11/30/2024 1:58 PM EDT [facility] MLH1 Intact nuclear expression 11/30/2024 1:58 PM EDT [facility] MSH2 Intact nuclear expression 11/30/2024 1:58 PM EDT [facility] MSH6 Intact nuclear expression 11/30/2024 1:58 PM EDT [facility] PMS2 Intact nuclear expression 11/30/2024 1:58 PM EDT [facility] HLA-A - [place] -,A*02:01 11/30/2024 1:58 PM EDT [facility] CRI[facility] HLA-B - [place] B*40:01,B*44: 02 11/30/2024 1:58 PM EDT [facility] CRISTOBAL HLA-C - [place] C*03:04,C*05: 01 11/30/2024 1:58 PM EDT [facility] Tissue Non-blood Collection / Unknown 11/18/2024 2:55 PM EDT 11/21/2024 1:03 PM EDT Narrative This result has genomic variants that were not included in this document. us Karol Jane MD LAB MOL DX NO SOURCE Final Re sult [facility] [address] [address], * Phosphorus, Plasma (11/14/2024 1:07 AM EDT) Phosphorus, Plasma 3.6 2.5 - 4.5 mg/dL 11/14/2024 2:18 AM EDT [facility] Blood Venous blood specimen / Unknown Venipuncture / Unknown 11/14/2024 1:07 AM EDT 11/14/2024 1:49 AM EDT Korey Rolle MD LAB BLOOD ORDERABLES Final Result [facility] [address] [place] [address] * Magnesium, Plasma (11/14/2024 1:07 AM EDT) Magnesium, Plasma 1.9 1.9 - 2.4 mg/dL 11/14/2024 2:18 AM EDT [facility] Blood Venous blood specimen / Unknown Venipuncture / Unknown 11/14/2024 1:07 AM EDT 11/14/2024 1:49 AM EDT Korey Rolle MD LAB BLOOD ORDERABLES Final Result Performing Organization Address City/[facility]/ZIP Co de Phone Number [facility] [address] [place] [address] * (ABNORMAL) Ionized calcium, whole blood (11/14/2024 1:07 AM EDT) Ionized Calcium, Whole Blood 4.4(L) 4.6 - 5.1 mg/dL LAB HEMATOLOGY METHOD 11/14/2024 1:58 AM EDT [facility] Blood Venous blood specimen / Unknown Venipuncture / Unknown 11/14/2024 1:07 AM EDT 11/14/2024 1:50 AM EDT us Korey Rolle MD LAB BLOOD ORDERABLES Final Result Performing Organization Address City/[facility]/ZIP Co de Phone Number [facility] [address] [place] [address] * (ABNORMAL) Basic metabolic panel (11/14/2024 1:07 AM EDT) Glucose, Plasma 85 74 - 99 mg/dL 11/14/2024 2:18 AM EDT [facility] BUN, Plasma 12 7 - 21 mg/dL 11/14/2024 2:18 AM EDT [facility] Creatinine, Plasma 0.99 0.60 - 1.10 mg/dL 11/14/2024 2:18 AM EDT [facility] BUN/Creatinine Ratio 12 11/14/2024 2:18 AM EDT [facility] Sodium, Plasma 142 136 - 145 mmol/L 11/14/2024 2:18 AM EDT [facility] Potassium, Plasma 3.7 3.6 - 4.9 mmol/L 11/14/2024 2:18 AM EDT [facility] Chloride, Plasma 108(H) 97 - 107 mmol/L 11/14/2024 2:18 AM EDT [facility] CO2, Plasma 21(L) 22 - 29 mmol/L 11/14/2024 2:18 AM EDT [facility] Anion Gap 13 6 - 16 mmol/L 11/14/2024 2:18 AM EDT [facility] Total Calcium, Plasma 8.1(L) 8.9 - 10.2 mg/dL 11/14/2024 2:18 AM EDT [facility] eGFRcr 71.4 mL/min/1.7 3m*2 11/14/2024 2:18 AM EDT [facility] Comment:Reported eGFRcr in m L/min/1.73m2 is based the CKD-EPI 2020 equation that does not use a race coefficient. Blood Venous blood specimen / Unknown Venipuncture / Unknown 11/14/2024 1:07 AM EDT 11/14/2024 1:49 AM EDT us Korey Rolle MD LAB BLOOD ORDERABLES Final Result [facility] [address] [place] [address] * (ABNORMAL) CBC (11/14/2024 1:07 AM EDT) WBC Count 9.73 3.70 - 10.30 10*3/uL LAB HEMATOLOGY METHOD 11/14/2024 1:57 AM EDT [facility] RBC Count 2.92(L) 3.90 - 5.20 10*6/uL LAB HEMATOLOGY METHOD 11/14/2024 1:57 AM EDT [facility] HGB 7.8(L) 11.2 - 15.7 g/dL LAB HEMATOLOGY METHOD 11/14/2024 1:57 AM EDT [facility] HCT 24.9(L) 34.0 - 45.0 % LAB HEMATOLOGY METHOD 11/14/2024 1:57 AM EDT [facility] Platelet Count 237 155 - 369 10*3/uL LAB HEMATOLOGY METHOD 11/14/2024 1:57 AM EDT [facility] MCV 85 79 - 98 fL LAB HEMATOLOGY METHOD 11/14/2024 1:57 AM EDT [facility] MCH 26.7 26.0 - 32.0 pg LAB HEMATOLOGY METHOD 11/14/2024 1:57 AM EDT [facility] MCHC 31.3 30.7 - 35.5 g/dL LAB HEMATOLOGY METHOD 11/14/2024 1:57 AM EDT [facility] RDW 16.6(H) 11.5 - 14.5 % LAB HEMATOLOGY METHOD 11/14/2024 1:57 AM EDT [facility] MPV 9.6 8.8 - 12.5 fL LAB HEMATOLOGY METHOD 11/14/2024 1:57 AM EDT [facility] nRBC 0.0 <=0.0 per 100 WBCs LAB HEMATOLOGY METHOD 11/14/2024 1:57 AM EDT [facility] Blood Venous blood specimen / Unknown Venipuncture / Unknown 11/14/2024 1:07 AM EDT 11/14/2024 1:49 AM EDT Korey Rolle MD LAB BLOOD ORDERABLES Final Result [facility] [address] [place] [address] * (ABNORMAL) Fibrinogen (11/14/2024 1:07 AM EDT) Fibrinogen, Quantitative (Clottable) 512(H) 208 - 459 mg/dL LAB COAGULATION METHOD 11/14/2024 2:09 AM EDT [facility] Blood Venous blood specimen / Unknown Venipuncture / Unknown 11/14/2024 1:07 AM EDT 11/14/2024 1:48 AM EDT Karol Jane MD LAB BLOOD ORDERABLES Final Re sult Performing Organization Address [facility]/ZIP Co de Phone Number [facility] [address] [place] [address] * (ABNORMAL) APTT (11/14/2024 1:07 AM EDT) aPTT 23(L) 25 - 35 sec LAB COAGULATION METHOD 11/14/2024 2:09 AM EDT [facility] Blood Venous blood specimen / Unknown Venipuncture / Unknown 11/14/2024 1:07 AM EDT 11/14/2024 1:48 AM EDT Karol Jane MD LAB BLOOD ORDERABLES Final Re sult Performing Organization Address City/[facility]/ZIP Co de Phone Number [facility] [address] [place] [address] * (ABNORMAL) Protime-INR (11/14/2024 1:07 AM EDT) Prothrombin Time 14.8(H) 12.0 - 14.3 sec LAB COAGULATION METHOD 11/14/2024 2:09 AM EDT [facility] INR 1.2(H) 0.9 - 1.1 LAB COAGULATION METHOD 11/14/2024 2:09 AM EDT [facility] Blood Venous blood specimen / Unknown Venipuncture / Unknown 11/14/2024 1:07 AM EDT 11/14/2024 1:48 AM EDT Narrative [facility] - 11/14/2024 2:09 AM EDT OPTIMAL INR RANGES FOR PATIENT ON ORAL ANTICOAGULANT THERAPY Prevention of venous thromboembolism INR 2.0 to 3.0 In patients with heart disease: Atrial fibrillation INR 2.0 to 3.0 Valvular heart disease INR 2.0 to 3.0 Tissue heart valves INR 2.0 to 3.0 Mechanical prosthetic valves INR 2.5 to 3.5 Prevention of recurrent IL INR 2.5 to 3.5 Karol Jane MD LAB BLOOD ORDERABLES Final Re sult Performing Organization Address [facility]/ZIP [place] [address] * Phosphorus, Plasma (11/13/2024 3:01 AM EDT) Phosphorus, Plasma 3.6 2.5 - 4.5 mg/dL 11/13/2024 3:34 AM EDT [facility] Blood Venous blood specimen / Unknown Venipuncture / Unknown 11/13/2024 3:01 AM EDT 11/13/2024 3:05 AM EDT Korey Rolle MD LAB BLOOD ORDERABLES Final Result Performing Organization Address [facility] [place] [address] * Magnesium, Plasma (11/13/2024 3:01 AM EDT) Magnesium, Plasma 2.0 1.9 - 2.4 mg/dL 11/13/2024 3:34 AM EDT [facility] Blood Venous blood specimen / Unknown Venipuncture / Unknown 11/13/2024 3:01 AM EDT 11/13/2024 3:05 AM EDT Korey Rolle MD LAB BLOOD ORDERABLES Final Result Performing Organization Address City/[facility]/ZIP Co de Phone Number [facility] [address] [place] [address] * (ABNORMAL) Ionized calcium, whole blood (11/13/2024 3:01 AM EDT) Ionized Calcium, Whole Blood 4.3(L) 4.6 - 5.1 mg/dL LAB HEMATOLOGY METHOD 11/13/2024 3:09 AM EDT [facility] Blood Venous blood specimen / Unknown Venipuncture / Unknown 11/13/2024 3:01 AM EDT 11/13/2024 3:07 AM EDT us Korey Rolle MD LAB BLOOD ORDERABLES Final Result [facility] [address] [place] [address] * (ABNORMAL) Basic metabolic panel (11/13/2024 3:01 AM EDT) Glucose, Plasma 95 74 - 99 mg/dL 11/13/2024 3:34 AM EDT [facility] BUN, Plasma 14 7 - 21 mg/dL 11/13/2024 3:34 AM EDT [facility] Creatinine, Plasma 1.06 0.60 - 1.10 mg/dL 11/13/2024 3:34 AM EDT [facility] BUN/Creatinine Ratio 13 11/13/2024 3:34 AM EDT [facility] Sodium, Plasma 141 136 - 145 mmol/L 11/13/2024 3:34 AM EDT [facility] Potassium, Plasma 3.9 3.6 - 4.9 mmol/L 11/13/2024 3:34 AM EDT [facility] Chloride, Plasma 110(H) 97 - 107 mmol/L 11/13/2024 3:34 AM EDT [facility] CO2, Plasma 21(L) 22 - 29 mmol/L 11/13/2024 3:34 AM EDT [facility] Anion Gap 10 6 - 16 mmol/L 11/13/2024 3:34 AM EDT [facility] Total Calcium, Plasma 7.9(L) 8.9 - 10.2 mg/dL 11/13/2024 3:34 AM EDT [facility] eGFRcr 65.7 mL/min/1.7 3m*2 11/13/2024 3:34 AM EDT [facility] Comment:Reported eGFRcr in m L/min/1.73m2 is based the CKD-EPI 2020 equation that does not use a race coefficient. Blood Venous blood specimen / Unknown Venipuncture / Unknown 11/13/2024 3:01 AM EDT 11/13/2024 3:05 AM EDT Korey Rolle MD LAB BLOOD ORDERABLES Final Result [facility] [address] [place] [address] * (ABNORMAL) CBC (11/13/2024 3:01 AM EDT) WBC Count 9.57 3.70 - 10.30 10*3/uL LAB HEMATOLOGY METHOD 11/13/2024 3:16 AM EDT [facility] RBC Count 2.75(L) 3.90 - 5.20 10*6/uL LAB HEMATOLOGY METHOD 11/13/2024 3:16 AM EDT [facility] HGB 7.4(L) 11.2 - 15.7 g/dL LAB HEMATOLOGY METHOD 11/13/2024 3:16 AM EDT [facility] HCT 23.2(L) 34.0 - 45.0 % LAB HEMATOLOGY METHOD 11/13/2024 3:16 AM EDT [facility] Platelet Count 228 155 - 369 10*3/uL LAB HEMATOLOGY METHOD 11/13/2024 3:16 AM EDT [facility] MCV 84 79 - 98 fL LAB HEMATOLOGY METHOD 11/13/2024 3:16 AM EDT [facility] MCH 26.9 26.0 - 32.0 pg LAB HEMATOLOGY METHOD 11/13/2024 3:16 AM EDT [facility] MCHC 31.9 30.7 - 35.5 g/dL LAB HEMATOLOGY METHOD 11/13/2024 3:16 AM EDT [facility] RDW 16.6(H) 11.5 - 14.5 % LAB HEMATOLOGY METHOD 11/13/2024 3:16 AM EDT [facility] MPV 9.7 8.8 - 12.5 fL LAB HEMATOLOGY METHOD 11/13/2024 3:16 AM EDT [facility] nRBC 0.0 <=0.0 per 100 WBCs LAB HEMATOLOGY METHOD 11/13/2024 3:16 AM EDT [facility] Blood Venous blood specimen / Unknown Venipuncture / Unknown 11/13/2024 3:01 AM EDT 11/13/2024 3:05 AM EDT Korey Rolle MD LAB BLOOD ORDERABLES Final Result Performing Organization Address City/[facility]/ZIP Co de Phone Number [facility] [address] [place] [address] * PERIPHERAL IV (SMARTFORM LINK) (11/13/2024 2:59 AM EDT) Narrative Maurice Robertson RN - 11/13/2024 2:59 AM EDT Maurice Robertson RN 11/13/2024 2:59 AM Insert peripheral IV Performed by: Maurice Robertson, RN Authorized by: Korey Rolle MD Hand [...] - 4.5 mg/dL 11/12/2024 12:15 PM EDT [facility] Blood Venous blood specimen / Unknown Venipuncture / Unknown 11/12/2024 10:59 AM EDT 11/12/2024 11:12 AM EDT Result [facility] Korey Rolle MD LAB BLOOD ORDERABLES Final Result Performing Organization Address City/[facility]/ZIP Co de Phone Number [facility] [address] [place] [address] * (ABNORMAL) Magnesium, Plasma (11/12/2024 10:59 AM EDT) Magnesium, Plasma 1.7(L) 1.9 - 2.4 mg/dL 11/12/2024 12:15 PM EDT [facility] Blood Venous blood specimen / Unknown Venipuncture / Unknown 11/12/2024 10:59 AM EDT 11/12/2024 11:12 AM EDT us Korey Rolle MD LAB BLOOD ORDERABLES Final Result Performing Organization Address City/[facility]/ZIP Co de Phone Number [facility] [address] [place] [address] * (ABNORMAL) Ionized calcium, whole blood (11/12/2024 10:59 AM EDT) Ionized Calcium, Whole Blood 4.5(L) 4.6 - 5.1 mg/dL LAB HEMATOLOGY METHOD 11/12/2024 11:08 AM EDT [facility] Blood Venous blood specimen / Unknown Venipuncture / Unknown 11/12/2024 10:59 AM EDT 11/12/2024 11:07 AM EDT us Korey Rolle MD LAB BLOOD ORDERABLES Final Result Performing Organization Address City/[facility]/ZIP Co de Phone Number [facility] [address] [place] [address] * (ABNORMAL) Basic metabolic panel (11/12/2024 10:59 AM EDT) Pathologist [facility] Glucose, Plasma 89 74 - 99 mg/dL 11/12/2024 12:15 PM EDT [facility] BUN, Plasma 16 7 - 21 mg/dL 11/12/2024 12:15 PM EDT [facility] Creatinine, Plasma 1.15(H) 0.60 - 1.10 mg/dL 11/12/2024 12:15 PM EDT [facility] BUN/Creatinine Ratio 14 11/12/2024 12:15 PM EDT [facility] Sodium, Plasma 141 136 - 145 mmol/L 11/12/2024 12:15 PM EDT [facility] Potassium, Plasma 3.7 3.6 - 4.9 mmol/L 11/12/2024 12:15 PM EDT [facility] Chloride, Plasma 109(H) 97 - 107 mmol/L 11/12/2024 12:15 PM EDT [facility] CO2, Plasma 21(L) 22 - 29 mmol/L 11/12/2024 12:15 PM EDT [facility] Anion Gap 11 6 - 16 mmol/L 11/12/2024 12:15 PM EDT [facility] Total Calcium, Plasma 8.5(L) 8.9 - 10.2 mg/dL 11/12/2024 12:15 PM EDT [facility] eGFRcr 59.6 mL/min/1.7 3m*2 11/12/2024 12:15 PM EDT [facility] Comment:Reported eGFRcr in m L/min/1.73m2 is based the CKD-EPI 2020 equation that does not use a race coefficient. Blood Venous blood specimen / Unknown Venipuncture / Unknown 11/12/2024 10:59 AM EDT 11/12/2024 11:12 AM EDT Korey Rolle MD LAB BLOOD ORDERABLES Final Result [facility] [address] [place] [address] * (ABNORMAL) CBC (11/12/2024 10:59 AM EDT) WBC Count 10.21 3.70 - 10.30 10*3/uL LAB HEMATOLOGY METHOD 11/12/2024 11:32 AM EDT [facility] RBC Count 2.96(L) 3.90 - 5.20 10*6/uL LAB HEMATOLOGY METHOD 11/12/2024 11:32 AM EDT [facility] HGB 7.8(L) 11.2 - 15.7 g/dL LAB HEMATOLOGY METHOD 11/12/2024 11:32 AM EDT [facility] HCT 25.1(L) 34.0 - 45.0 % LAB HEMATOLOGY METHOD 11/12/2024 11:32 AM EDT [facility] Platelet Count 266 155 - 369 10*3/uL LAB HEMATOLOGY METHOD 11/12/2024 11:32 AM EDT [facility] MCV 85 79 - 98 fL LAB HEMATOLOGY METHOD 11/12/2024 11:32 AM EDT [facility] MCH 26.4 26.0 - 32.0 pg LAB HEMATOLOGY METHOD 11/12/2024 11:32 AM EDT [facility] MCHC 31.1 30.7 - 35.5 g/dL LAB HEMATOLOGY METHOD 11/12/2024 11:32 AM EDT [facility] RDW 16.4(H) 11.5 - 14.5 % LAB HEMATOLOGY METHOD 11/12/2024 11:32 AM EDT [facility] MPV 9.8 8.8 - 12.5 fL LAB HEMATOLOGY METHOD 11/12/2024 11:32 AM EDT [facility] nRBC 0.0 <=0.0 per 100 WBCs LAB HEMATOLOGY METHOD 11/12/2024 11:32 AM EDT [facility] Blood Venous blood specimen / Unknown Venipuncture / Unknown 11/12/2024 10:59 AM EDT 11/12/2024 11:25 AM EDT Korey Rolle MD LAB BLOOD ORDERABLES Final Result [facility] [address] [place] [address] * Comprehensive GI Panel by PCR (11/11/2024 8:01 PM EDT) Campylobacter PCR Result Not Detected Not Detected 11/12/2024 5:52 AM EDT [facility] Plesiomonas shigelloides PCR Result Not Detected Not Detected 11/12/2024 5:52 AM EDT [facility] Salmonella PCR Result Not Detected Not Detected 11/12/2024 5:52 AM EDT [facility] Vibrio species PCR Result Not Detected Not Detected 11/12/2024 5:52 AM EDT [facility] Vibrio cholerae PCR Result Not Detected Not Detected 11/12/2024 5:52 AM EDT [facility] Yersinia enterocolitica PCR Result Not Detected Not Detected 11/12/2024 5:52 AM EDT [facility] Enteroaggregative E. coli (EAEC) PCR Result Not Detected Not Detected 11/12/2024 5:52 AM EDT [facility] Enteropathogenic E. coli (EPEC) PCR Result Not Detected Not Detected 11/12/2024 5:52 AM EDT [facility] Enterotoxigenic E. coli (ETEC) lt/st PCR Result Not Detected Not Detected 11/12/2024 5:52 AM EDT [facility] Shiga-like Toxin-Producing E.coli (STEC) stx1/stx2 PCR Resu Not Detected Not Detected 11/12/2024 5:52 AM EDT [facility] E coli 0157 PCR Result Not Detected Not Detected 11/12/2024 5:52 AM EDT [facility] Shigella/Enteroinvas christal E. coli (EIEC) PCR Result Not Detected Not Detected 11/12/2024 5:52 AM EDT [facility] Cryptosporidium PCR Result Not Detected Not Detected 11/12/2024 5:52 AM EDT [facility] Cyclospora cayetanensis PCR Result Not Detected Not Detected 11/12/2024 5:52 AM EDT [facility] Entamoeba histolytica PCR Result Not Detected Not Detected 11/12/2024 5:52 AM EDT [facility] Giardia duodenalis (aka Giardia lamblia) PCR Result Not Detected Not Detected 11/12/2024 5:52 AM EDT [facility] Adenovirus F 40/41 PCR Result Not Detected Not Detected 11/12/2024 5:52 AM EDT [facility] Astrovirus PCR Result Not Detected Not Detected 11/12/2024 5:52 AM EDT [facility] Norovirus GI/GII PCR Result Not Detected Not Detected 11/12/2024 5:52 AM EDT [facility] Rotavirus A PCR Result Not Detected Not Detected 11/12/2024 5:52 AM EDT [facility] Sapovirus PCR Result Not Detected Not Detected 11/12/2024 5:52 AM EDT [facility] Stool Rectum structure / Unknown Non-blood Collection / Unknown 11/11/2024 8:01 PM EDT 11/11/2024 8:13 PM EDT [facility] - 11/12/2024 5:52 AM EDT [...] GENERAL ORDERABLES Final Result Performing Organization Address [facility] [place] [address] * Clostridiodes (Clostridium) difficile PCR (11/11/2024 8:01 PM EDT) C difficile PCR toxin B gene DNA Result Not Detected Not Detected 11/11/2024 9:22 PM EDT [facility] Stool Rectum structure / Unknown Non-blood Collection / Unknown 11/11/2024 8:01 PM EDT 11/11/2024 8:13 PM EDT Narrative [facility] - 11/11/2024 9:22 PM EDT This test [...] GENERAL ORDERABLES Final Result Performing Organization Address [facility] [place] [address] * CT Chest wo IV Contrast (11/11/2024 [...] 9:44 AM Final report signed by Jan lAfonso MD on 11/11/2024 10:17 AM Narrative 11/11/2024 [...] MD on 11/11/2024 10:17 AM Jennifer Capps [employer] IMG CT PROCEDURES Final R esult * Sodium, urine, random (11/11/2024 3:34 AM EDT) Sodium, Urine 76 mmol/L 11/11/2024 4:13 AM EDT [facility] Urine Urine specimen obtained by clean catch procedure / Unknown Non-blood Collection / Unknown 11/11/2024 3:34 AM EDT 11/11/2024 3:43 AM EDT Morelia Galvez MD LAB URINE ORDERABLES Final Result [facility] [address] [place] [address] * Creatinine, urine, random (11/11/2024 3:34 AM EDT) Creatinine, Urine 105 mg/dL 11/11/2024 4:13 AM EDT [facility] Urine Urine specimen obtained by clean catch procedure / Unknown Non-blood Collection / Unknown 11/11/2024 3:34 AM EDT 11/11/2024 3:43 AM EDT Morelia Galvez MD LAB URINE ORDERABLES Final Result [facility] [address] [place] [id number] * (ABNORMAL) Comprehensive Metabolic Panel, Plasma (11/11/2024 3:32 AM EDT) Glucose, Plasma 98 74 - 99 mg/dL 11/11/2024 4:27 AM EDT [facility] BUN, Plasma 18 7 - 21 mg/dL 11/11/2024 4:27 AM EDT [facility] Creatinine, Plasma 1.46(H) 0.60 - 1.10 mg/dL 11/11/2024 4:27 AM EDT [facility] BUN/Creatinine Ratio 12 11/11/2024 4:27 AM EDT [facility] Sodium, Plasma 142 136 - 145 mmol/L 11/11/2024 4:27 AM EDT [facility] Potassium, Plasma 4.1 3.6 - 4.9 mmol/L 11/11/2024 4:27 AM EDT [facility] Chloride, Plasma 111(H) 97 - 107 mmol/L 11/11/2024 4:27 AM EDT [facility] CO2, Plasma 19(L) 22 - 29 mmol/L 11/11/2024 4:27 AM EDT [facility] Anion Gap 12 6 - 16 mmol/L 11/11/2024 4:27 AM EDT [facility] Total Calcium, Plasma 8.3(L) 8.9 - 10.2 mg/dL 11/11/2024 4:27 AM EDT [facility] Total Protein 6.0(L) 6.3 - 7.9 g/dL 11/11/2024 4:27 AM EDT [facility] Albumin, Plasma 2.5(L) 3.5 - 5.2 g/dL 11/11/2024 4:27 AM EDT [facility] AST, Plasma 61(H) 10 - 35 U/L 11/11/2024 4:27 AM EDT [facility] ALT, Plasma 29 10 - 35 U/L 11/11/2024 4:27 AM EDT [facility] Alkaline Phosphatase, Plasma 238(H) 35 - 104 U/L 11/11/2024 4:27 AM EDT [facility] Total Bilirubin, Plasma 0.5 0.2 - 1.1 mg/dL 11/11/2024 4:27 AM EDT [facility] eGFRcr 44.8 mL/min/1.7 3m*2 11/11/2024 4:27 AM EDT [facility] Comment:Reported eGFRcr in m L/min/1.73m2 is based the CKD-EPI 2020 equation that does not use a race coefficient. Blood Venous blood specimen / Unknown Venipuncture / Unknown 11/11/2024 3:32 AM EDT 11/11/2024 3:45 AM EDT us Jennifer Capps INTERNATIONAL ACCOUNT EXECUTIVE LAB BLOOD ORDERABLES Sonali l Result [facility] [address] [place] [address] * (ABNORMAL) CBC W/O Differential (11/11/2024 3:32 AM EDT) WBC Count 11.86(H) 3.70 - 10.30 10*3/uL LAB HEMATOLOGY METHOD 11/11/2024 3:53 AM EDT [facility] RBC Count 2.86(L) 3.90 - 5.20 10*6/uL LAB HEMATOLOGY METHOD 11/11/2024 3:53 AM EDT [facility] HGB 7.5(L) 11.2 - 15.7 g/dL LAB HEMATOLOGY METHOD 11/11/2024 3:53 AM EDT [facility] HCT 24.0(L) 34.0 - 45.0 % LAB HEMATOLOGY METHOD 11/11/2024 3:53 AM EDT [facility] Platelet Count 248 155 - 369 10*3/uL LAB HEMATOLOGY METHOD 11/11/2024 3:53 AM EDT [facility] MCV 84 79 - 98 fL LAB HEMATOLOGY METHOD 11/11/2024 3:53 AM EDT [facility] MCH 26.2 26.0 - 32.0 pg LAB HEMATOLOGY METHOD 11/11/2024 3:53 AM EDT [facility] MCHC 31.3 30.7 - 35.5 g/dL LAB HEMATOLOGY METHOD 11/11/2024 3:53 AM EDT [facility] RDW 16.4(H) 11.5 - 14.5 % LAB HEMATOLOGY METHOD 11/11/2024 3:53 AM EDT [facility] MPV 9.7 8.8 - 12.5 fL LAB HEMATOLOGY METHOD 11/11/2024 3:53 AM EDT [facility] nRBC 0.0 <=0.0 per 100 WBCs LAB HEMATOLOGY METHOD 11/11/2024 3:53 AM EDT [facility] Blood Venous blood specimen / Unknown Venipuncture / Unknown 11/11/2024 3:32 AM EDT 11/11/2024 3:45 AM EDT us Jennifer Capps APRN LAB BLOOD ORDERABLES Sonali l Result Performing Organization Address [facility]/ZIP Co de Phone Number [facility] [address] [place] [address] * (ABNORMAL) Magnesium, Plasma (11/11/2024 3:32 AM EDT) Magnesium, Plasma 1.8(L) 1.9 - 2.4 mg/dL 11/11/2024 4:27 AM EDT [facility] Blood Venous blood specimen / Unknown Venipuncture / Unknown 11/11/2024 3:32 AM EDT 11/11/2024 3:45 AM EDT us Jennifer Capps APRN LAB BLOOD ORDERABLES Sonali l Result [facility] [address] [place] [address] * Phosphorus, Plasma (11/11/2024 3:32 AM EDT) Phosphorus, Plasma 3.0 2.5 - 4.5 mg/dL 11/11/2024 4:27 AM EDT [facility] Blood Venous blood specimen / Unknown Venipuncture / Unknown 11/11/2024 3:32 AM EDT 11/11/2024 3:45 AM EDT us Jennifer Capps INTERNATIONAL ACCOUNT EXECUTIVE LAB BLOOD ORDERABLES Sonali barahona Result [facility] [address] [place] [address] * (ABNORMAL) Comprehensive metabolic panel (11/10/2024 10:30 AM EDT) Glucose, Plasma 96 74 - 99 mg/dL 11/10/2024 11:48 AM EDT [facility] BUN, Plasma 20 7 - 21 mg/dL 11/10/2024 11:48 AM EDT [facility] Creatinine, Plasma 1.53(H) 0.60 - 1.10 mg/dL 11/10/2024 11:48 AM EDT [facility] BUN/Creatinine Ratio 13 11/10/2024 11:48 AM EDT [facility] Sodium, Plasma 138 136 - 145 mmol/L 11/10/2024 11:48 AM EDT [facility] Potassium, Plasma 3.6 3.6 - 4.9 mmol/L 11/10/2024 11:48 AM EDT [facility] Chloride, Plasma 107 97 - 107 mmol/L 11/10/2024 11:48 AM EDT [facility] CO2, Plasma 16(L) 22 - 29 mmol/L 11/10/2024 11:48 AM EDT [facility] Anion Gap 15 6 - 16 mmol/L 11/10/2024 11:48 AM EDT [facility] Total Calcium, Plasma 8.4(L) 8.9 - 10.2 mg/dL 11/10/2024 11:48 AM EDT [facility] Total Protein 6.0(L) 6.3 - 7.9 g/dL 11/10/2024 11:48 AM EDT [facility] Albumin, Plasma 2.5(L) 3.5 - 5.2 g/dL 11/10/2024 11:48 AM EDT [facility] AST, Plasma 57(H) 10 - 35 U/L 11/10/2024 11:48 AM EDT [facility] Comment:Hemolyzed, result ma y be falsely increased. ALT, Plasma 23 10 - 35 U/L 11/10/2024 11:48 AM EDT [facility] Alkaline Phosphatase, Plasma 224(H) 35 - 104 U/L 11/10/2024 11:48 AM EDT [facility] Total Bilirubin, Plasma 0.6 0.2 - 1.1 mg/dL 11/10/2024 11:48 AM EDT [facility] eGFRcr 42.3 mL/min/1.7 3m*2 11/10/2024 11:48 AM EDT [facility] Comment:Reported eGFRcr in m L/min/1.73m2 is based the CKD-EPI 2020 equation that does not use a race coefficient. Blood Venous blood specimen / Unknown Venipuncture / Unknown 11/10/2024 10:30 AM EDT 11/10/2024 10:34 AM EDT Morelia Galvez MD LAB BLOOD ORDERABLES Final Result [facility] [address] [place] [address] * (ABNORMAL) Basic Metabolic Panel, Plasma (11/10/2024 5:49 AM EDT) Glucose, Plasma 105(H) 74 - 99 mg/dL 11/10/2024 6:36 AM EDT [facility] BUN, Plasma 20 7 - 21 mg/dL 11/10/2024 6:36 AM EDT [facility] Creatinine, Plasma 1.76(H) 0.60 - 1.10 mg/dL 11/10/2024 6:36 AM EDT [facility] BUN/Creatinine Ratio 11 11/10/2024 6:36 AM EDT [facility] Sodium, Plasma 138 136 - 145 mmol/L 11/10/2024 6:36 AM EDT [facility] Potassium, Plasma 3.3(L) 3.6 - 4.9 mmol/L 11/10/2024 6:36 AM EDT [facility] Chloride, Plasma 107 97 - 107 mmol/L 11/10/2024 6:36 AM EDT [facility] CO2, Plasma 19(L) 22 - 29 mmol/L 11/10/2024 6:36 AM EDT [facility] Anion Gap 12 6 - 16 mmol/L 11/10/2024 6:36 AM EDT [facility] Total Calcium, Plasma 8.0(L) 8.9 - 10.2 mg/dL 11/10/2024 6:36 AM EDT [facility] eGFRcr 35.8 mL/min/1.7 3m*2 11/10/2024 6:36 AM EDT [facility] Comment:Reported eGFRcr in m L/min/1.73m2 is based the CKD-EPI 2020 equation that does not use a race coefficient. Blood Venous blood specimen / Unknown Venipuncture / Unknown 11/10/2024 5:49 AM EDT 11/10/2024 6:07 AM EDT Morelia Galvez MD LAB BLOOD ORDERABLES Final Result [facility] [address] [place] [address] * (ABNORMAL) CBC and Differential (11/10/2024 5:49 AM EDT) WBC Count 12.70(H) 3.70 - 10.30 10*3/uL LAB HEMATOLOGY METHOD 11/10/2024 6:14 AM EDT [facility] RBC Count 2.83(L) 3.90 - 5.20 10*6/uL LAB HEMATOLOGY METHOD 11/10/2024 6:14 AM EDT [facility] HGB 7.5(L) 11.2 - 15.7 g/dL LAB HEMATOLOGY METHOD 11/10/2024 6:14 AM EDT [facility] HCT 23.4(L) 34.0 - 45.0 % LAB HEMATOLOGY METHOD 11/10/2024 6:14 AM EDT [facility] Platelet Count 260 155 - 369 10*3/uL LAB HEMATOLOGY METHOD 11/10/2024 6:14 AM EDT [facility] MCV 83 79 - 98 fL LAB HEMATOLOGY METHOD 11/10/2024 6:14 AM EDT [facility] MCH 26.5 26.0 - 32.0 pg LAB HEMATOLOGY METHOD 11/10/2024 6:14 AM EDT [facility] MCHC 32.1 30.7 - 35.5 g/dL LAB HEMATOLOGY METHOD 11/10/2024 6:14 AM EDT [facility] RDW 16.3(H) 11.5 - 14.5 % LAB HEMATOLOGY METHOD 11/10/2024 6:14 AM EDT [facility] MPV 9.6 8.8 - 12.5 fL LAB HEMATOLOGY METHOD 11/10/2024 6:14 AM EDT [facility] nRBC 0.0 <=0.0 per 100 WBCs LAB HEMATOLOGY METHOD 11/10/2024 6:14 AM EDT [facility] Differential Type Automated LAB HEMATOLOGY METHOD 11/10/2024 6:14 AM EDT [facility] Neutrophils % 78 % LAB HEMATOLOGY METHOD 11/10/2024 6:14 AM EDT [facility] Lymphocytes % 12 % LAB HEMATOLOGY METHOD 11/10/2024 6:14 AM EDT [facility] Monocytes % 7 % LAB HEMATOLOGY METHOD 11/10/2024 6:14 AM EDT [facility] Eosinophils % 2 % LAB HEMATOLOGY METHOD 11/10/2024 6:14 AM EDT [facility] Basophils % 0 % LAB HEMATOLOGY METHOD 11/10/2024 6:14 AM EDT [facility] Immature Granulocytes % 1 % LAB HEMATOLOGY METHOD 11/10/2024 6:14 AM EDT [facility] Neutrophils Absolute 9.84(H) 1.60 - 6.10 10*3/uL LAB HEMATOLOGY METHOD 11/10/2024 6:14 AM EDT [facility] Lymphocytes Absolute 1.49 1.20 - 3.90 10*3/uL LAB HEMATOLOGY METHOD 11/10/2024 6:14 AM EDT [facility] Monocytes Absolute 0.93(H) 0.30 - 0.90 10*3/uL LAB HEMATOLOGY METHOD 11/10/2024 6:14 AM EDT [facility] Eosinophils Absolute 0.23 0.00 - 0.50 10*3/uL LAB HEMATOLOGY METHOD 11/10/2024 6:14 AM EDT [facility] Basophils Absolute 0.05 0.00 - 0.10 10*3/uL LAB HEMATOLOGY METHOD 11/10/2024 6:14 AM EDT [facility] Immature Granulocytes Absolute 0.16(H) 0.00 - 0.06 10*3/uL LAB HEMATOLOGY METHOD 11/10/2024 6:14 AM EDT [facility] Blood Venous blood specimen / Unknown Venipuncture / Unknown 11/10/2024 5:49 AM EDT 11/10/2024 6:06 AM EDT Narrative [facility] - 11/10/2024 6:14 AM EDT Therapeutic decision making should be based on absolute values, rather than percentages. Result Blair Galvez MD LAB BLOOD ORDERABLES Final Result [facility] [address] [place] [address] * Magnesium, Plasma (11/10/2024 5:49 AM EDT) Magnesium, Plasma 2.1 1.9 - 2.4 mg/dL 11/10/2024 6:36 AM EDT [facility] Blood Venous blood specimen / Unknown Venipuncture / Unknown 11/10/2024 5:49 AM EDT 11/10/2024 6:07 AM EDT Result Blair Galvez MD LAB BLOOD ORDERABLES Final Result Performing Organization Address City/[facility]/ZIP Co de Phone Number [facility] [address] [place] [address] * Phosphorus, Plasma (11/10/2024 5:49 AM EDT) Phosphorus, Plasma 3.1 2.5 - 4.5 mg/dL 11/10/2024 6:36 AM EDT [facility] Blood Venous blood specimen / Unknown Venipuncture / Unknown 11/10/2024 5:49 AM EDT 11/10/2024 6:07 AM EDT us Morelia Galvez MD LAB BLOOD ORDERABLES Final Result [facility] [address] [place] [address] * PERIPHERAL IV ([employer] LINK) (11/09/2024 5:08 [...] (series 3, image 74 and series 5, [id number]) , previously measured 9.0 x 6.1 x [...] with the final edited report. Drafted by iTo East MD on 11/09/2024 8:58 AM Final report signed by Jan Alfonso MD on 11/09/2024 10:03 AM us Morelia Galvez MD IMG CT PROCEDURES Final [...] Comment 11/09/2024 7:13 AM EDT [facility] Light Cleaner ID Justine Singh 11/09/2024 7:13 AM EDT [facility] Device ID [id number] 11/09/2024 7:13 AM EDT [facility] Specimen Type POC Capillary 11/09/2024 7:13 AM EDT [facility] Blood Capillary blood specimen / Unknown 11/09/2024 7:12 AM EDT 11/09/2024 7:13 AM EDT Morelia Galvez MD LAB POINT OF CARE TEST DOCKED DEVICE UNSOLICITED RESULTS Final Result Performing Organization Address City/[facility]/ZIP Co de Phone Number [facility] [address] [place] [address] * (ABNORMAL) Magnesium (11/09/2024 2:04 AM EDT) Pathologist [facility] Magnesium, Plasma 1.7(L) 1.9 - 2.4 mg/dL 11/09/2024 3:13 AM EDT [facility] Blood Venous blood specimen / Unknown Venipuncture / Unknown 11/09/2024 2:04 AM EDT 11/09/2024 2:44 AM EDT us Rui Leonard DO LAB BLOOD ORDERABLES Final Res ult Performing Organization Address City/[facility]/ZIP Co de Phone Number [facility] [address] [place] [address] * Phosphorus (11/09/2024 2:04 AM EDT) Pathologist [facility] Phosphorus, Plasma 3.9 2.5 - 4.5 mg/dL 11/09/2024 3:13 AM EDT [facility] Blood Venous blood specimen / Unknown Venipuncture / Unknown 11/09/2024 2:04 AM EDT 11/09/2024 2:44 AM EDT Rui Leonard DO LAB BLOOD ORDERABLES Final Res ult [facility] [address] [place] [address] * (ABNORMAL) Basic Metabolic Panel (11/09/2024 2:04 AM EDT) [facility] Glucose, Plasma 96 74 - 99 mg/dL 11/09/2024 3:13 AM EDT [facility] BUN, Plasma 21 7 - 21 mg/dL 11/09/2024 3:13 AM EDT [facility] Creatinine, Plasma 1.81(H) 0.60 - 1.10 mg/dL 11/09/2024 3:13 AM EDT [facility] BUN/Creatinine Ratio 12 11/09/2024 3:13 AM EDT [facility] Sodium, Plasma 139 136 - 145 mmol/L 11/09/2024 3:13 AM EDT [facility] Potassium, Plasma 3.0(L) 3.6 - 4.9 mmol/L 11/09/2024 3:13 AM EDT [facility] Chloride, Plasma 104 97 - 107 mmol/L 11/09/2024 3:13 AM EDT [facility] CO2, Plasma 19(L) 22 - 29 mmol/L 11/09/2024 3:13 AM EDT [facility] Anion Gap 16 6 - 16 mmol/L 11/09/2024 3:13 AM EDT [facility] Total Calcium, Plasma 8.3(L) 8.9 - 10.2 mg/dL 11/09/2024 3:13 AM EDT [facility] eGFRcr 34.6 mL/min/1.7 3m*2 11/09/2024 3:13 AM EDT [facility] Comment:Reported eGFRcr in m L/min/1.73m2 is based the CKD-EPI 2020 equation that does not use a race coefficient. Blood Venous blood specimen / Unknown Venipuncture / Unknown 11/09/2024 2:04 AM EDT 11/09/2024 2:44 AM EDT us Rui Leonard DO LAB BLOOD ORDERABLES Final Res ult [facility] [address] [place] [address] * (ABNORMAL) CBC (11/09/2024 2:04 AM EDT) WBC Count 12.51(H) 3.70 - 10.30 10*3/uL LAB HEMATOLOGY METHOD 11/09/2024 2:53 AM EDT [facility] RBC Count 2.74(L) 3.90 - 5.20 10*6/uL LAB HEMATOLOGY METHOD 11/09/2024 2:53 AM EDT [facility] HGB 7.4(L) 11.2 - 15.7 g/dL LAB HEMATOLOGY METHOD 11/09/2024 2:53 AM EDT [facility] HCT 22.8(L) 34.0 - 45.0 % LAB HEMATOLOGY METHOD 11/09/2024 2:53 AM EDT [facility] Platelet Count 261 155 - 369 10*3/uL LAB HEMATOLOGY METHOD 11/09/2024 2:53 AM EDT [facility] MCV 83 79 - 98 fL LAB HEMATOLOGY METHOD 11/09/2024 2:53 AM EDT [facility] MCH 27.0 26.0 - 32.0 pg LAB HEMATOLOGY METHOD 11/09/2024 2:53 AM EDT [facility] MCHC 32.5 30.7 - 35.5 g/dL LAB HEMATOLOGY METHOD 11/09/2024 2:53 AM EDT [facility] RDW 16.2(H) 11.5 - 14.5 % LAB HEMATOLOGY METHOD 11/09/2024 2:53 AM EDT [facility] MPV 9.8 8.8 - 12.5 fL LAB HEMATOLOGY METHOD 11/09/2024 2:53 AM EDT [facility] nRBC 0.0 <=0.0 per 100 WBCs LAB HEMATOLOGY METHOD 11/09/2024 2:53 AM EDT [facility] Blood Venous blood specimen / Unknown Venipuncture / Unknown 11/09/2024 2:04 AM EDT 11/09/2024 2:44 AM EDT us Rui Leonard DO LAB BLOOD ORDERABLES Final Res ult Performing Organization Address [facility] Co de Phone Number [facility] [address] [place] [address] * (ABNORMAL) Troponin T, High Sensitivity, 2 Hour, Plasma (11/08/2024 3:17 PM EDT) Troponin T, High Sensitivity, 2 Hour 17(H) <14 ng/L 11/08/2024 3:51 PM EDT [facility] Troponin Delta 3 <10 ng/L 11/08/2024 3:51 PM EDT [facility] Troponin Delta Interpretation Not Significant 11/08/2024 3:51 PM EDT [facility] Comment:Not Significant. No acute change in troponin observed between the baseline and 2 hour samples. Blood Venous blood specimen / Unknown Venipuncture / Unknown 11/08/2024 3:17 PM EDT 11/08/2024 3:24 PM EDT us Long Rios MD LAB BLOOD ORDERABLES Final R esult Performing Organization Address [facility] Co de Phone Number [facility] [address] [place] [address] * Heparin level (11/08/2024 1:57 PM EDT) Anti Xa Level Unfractionated Heparin <0.11 <1.00 IU/mL LAB COAGULATION METHOD 11/08/2024 2:26 PM EDT [facility] Blood Venous blood specimen / Unknown Venipuncture / Unknown 11/08/2024 1:57 PM EDT 11/08/2024 2:07 PM EDT Narrative [facility] - 11/08/2024 2:26 PM EDT Therapeutic Range: UFH Full Dose and ACS/IL protocols*: 0.30 - 0.70 IU/mL UFH Low Dose protocol*: 0.25 - 0.50 IU/mL UFH prophylaxis: Not established us Long Rios MD LAB BLOOD ORDERABLES Final R esult [facility] [address] [place] [address] * US Abdomen Focused Region GB, Bile [...] HIV 1/2 Differentiation (11/08/2024 1:12 PM EDT) Pathologist [facility] HIV 1 & 2 Antibody/Antigen Screen Non Reactive Non Reactive 11/08/2024 2:06 PM EDT [facility] Comment:Screening for HIV 1 & 2 antibodies, and P24 antigen is NONREACTIVE. No confirmatory testing is required. Blood Venous blood specimen / Unknown Venipuncture / Unknown 11/08/2024 1:12 PM EDT 11/08/2024 1:24 PM EDT us Long Rios MD LAB BLOOD ORDERABLES Final R esult [facility] [address] [place] [address] * (ABNORMAL) PT-INR (11/08/2024 1:12 PM EDT) [facility] Prothrombin Time 16.3(H) 12.0 - 14.3 sec LAB COAGULATION METHOD 11/08/2024 1:48 PM EDT [facility] INR 1.3(H) 0.9 - 1.1 LAB COAGULATION METHOD 11/08/2024 1:48 PM EDT [facility] Blood Venous blood specimen / Unknown Venipuncture / Unknown 11/08/2024 1:12 PM EDT 11/08/2024 1:25 PM EDT Narrative [facility] - 11/08/2024 1:48 PM EDT OPTIMAL INR RANGES FOR PATIENT ON ORAL ANTICOAGULANT THERAPY Prevention of venous thromboembolism INR 2.0 to 3.0 In patients with heart disease: Atrial fibrillation INR 2.0 to 3.0 Valvular heart disease INR 2.0 to 3.0 Tissue heart valves INR 2.0 to 3.0 Mechanical prosthetic valves INR 2.5 to 3.5 Prevention of recurrent IL INR 2.5 to 3.5 us Long Rios MD LAB BLOOD ORDERABLES Final R esult [facility] [address] [place] [address] * (ABNORMAL) CBC w/diff (11/08/2024 1:12 PM EDT) WBC Count 13.33(H) 3.70 - 10.30 10*3/uL LAB HEMATOLOGY METHOD 11/08/2024 1:33 PM EDT [facility] RBC Count 3.41(L) 3.90 - 5.20 10*6/uL LAB HEMATOLOGY METHOD 11/08/2024 1:33 PM EDT [facility] HGB 9.1(L) 11.2 - 15.7 g/dL LAB HEMATOLOGY METHOD 11/08/2024 1:33 PM EDT [facility] HCT 27.9(L) 34.0 - 45.0 % LAB HEMATOLOGY METHOD 11/08/2024 1:33 PM EDT [facility] Platelet Count 301 155 - 369 10*3/uL LAB HEMATOLOGY METHOD 11/08/2024 1:33 PM EDT [facility] MCV 82 79 - 98 fL LAB HEMATOLOGY METHOD 11/08/2024 1:33 PM EDT [facility] MCH 26.7 26.0 - 32.0 pg LAB HEMATOLOGY METHOD 11/08/2024 1:33 PM EDT [facility] MCHC 32.6 30.7 - 35.5 g/dL LAB HEMATOLOGY METHOD 11/08/2024 1:33 PM EDT [facility] RDW 15.9(H) 11.5 - 14.5 % LAB HEMATOLOGY METHOD 11/08/2024 1:33 PM EDT [facility] MPV 9.7 8.8 - 12.5 fL LAB HEMATOLOGY METHOD 11/08/2024 1:33 PM EDT [facility] nRBC 0.0 <=0.0 per 100 WBCs LAB HEMATOLOGY METHOD 11/08/2024 1:33 PM EDT [facility] Differential Type Automated LAB HEMATOLOGY METHOD 11/08/2024 1:33 PM EDT [facility] Neutrophils % 84 % LAB HEMATOLOGY METHOD 11/08/2024 1:33 PM EDT [facility] Lymphocytes % 7 % LAB HEMATOLOGY METHOD 11/08/2024 1:33 PM EDT [facility] Monocytes % 7 % LAB HEMATOLOGY METHOD 11/08/2024 1:33 PM EDT [facility] Eosinophils % 1 % LAB HEMATOLOGY METHOD 11/08/2024 1:33 PM EDT [facility] Basophils % 0 % LAB HEMATOLOGY METHOD 11/08/2024 1:33 PM EDT [facility] Immature Granulocytes % 1 % LAB HEMATOLOGY METHOD 11/08/2024 1:33 PM EDT [facility] Neutrophils Absolute 11.14(H) 1.60 - 6.10 10*3/uL LAB HEMATOLOGY METHOD 11/08/2024 1:33 PM EDT [facility] Lymphocytes Absolute 0.97(L) 1.20 - 3.90 10*3/uL LAB HEMATOLOGY METHOD 11/08/2024 1:33 PM EDT [facility] Monocytes Absolute 0.92(H) 0.30 - 0.90 10*3/uL LAB HEMATOLOGY METHOD 11/08/2024 1:33 PM EDT [facility] Eosinophils Absolute 0.11 0.00 - 0.50 10*3/uL LAB HEMATOLOGY METHOD 11/08/2024 1:33 PM EDT [facility] Basophils Absolute 0.05 0.00 - 0.10 10*3/uL LAB HEMATOLOGY METHOD 11/08/2024 1:33 PM EDT [facility] Immature Granulocytes Absolute 0.14(H) 0.00 - 0.06 10*3/uL LAB HEMATOLOGY METHOD 11/08/2024 1:33 PM EDT [facility] Blood Venous blood specimen / Unknown Venipuncture / Unknown 11/08/2024 1:12 PM EDT 11/08/2024 1:25 PM EDT Narrative [facility] - 11/08/2024 1:33 PM EDT Therapeutic decision making should be based on absolute values, rather than percentages. us Long Rios MD LAB BLOOD ORDERABLES Final R esult Performing Organization Address City/[facility]/ZIP Co de Phone Number [facility] [address] [place] [address] * (ABNORMAL) BNP (11/08/2024 1:12 PM EDT) N-Terminal, PROBNP, Plasma 523(H) 0 - 449 pg/mL 11/08/2024 1:55 PM EDT [facility] Blood Venous blood specimen / Unknown Venipuncture / Unknown 11/08/2024 1:12 PM EDT 11/08/2024 1:25 PM EDT us Long Rios MD LAB BLOOD ORDERABLES Final R esult Performing Organization Address [facility]/ZIP Co de Phone Number [facility] [address] [place] [address] * (ABNORMAL) Troponin now and 120 min (11/08/2024 1:12 PM EDT) Pathologist [facility] Troponin T, High Sensitivity, 0 Hour 14(H) <14 ng/L 11/08/2024 1:55 PM EDT [facility] Blood Venous blood specimen / Unknown Venipuncture / Unknown 11/08/2024 1:12 PM EDT 11/08/2024 1:25 PM EDT us Long Rios MD LAB BLOOD ORDERABLES Final R esult Performing Organization Address City/[facility]/ZIP Co de Phone Number [facility] [address] [place] [address] * (ABNORMAL) CMP (11/08/2024 1:12 PM EDT) Glucose, Plasma 106(H) 74 - 99 mg/dL 11/08/2024 1:55 PM EDT [facility] BUN, Plasma 20 7 - 21 mg/dL 11/08/2024 1:55 PM EDT [facility] Creatinine, Plasma 1.64(H) 0.60 - 1.10 mg/dL 11/08/2024 1:55 PM EDT [facility] BUN/Creatinine Ratio 12 11/08/2024 1:55 PM EDT [facility] Sodium, Plasma 140 136 - 145 mmol/L 11/08/2024 1:55 PM EDT [facility] Potassium, Plasma 3.2(L) 3.6 - 4.9 mmol/L 11/08/2024 1:55 PM EDT [facility] Comment:Hemolyzed, result ma y be falsely increased. Chloride, Plasma 108(H) 97 - 107 mmol/L 11/08/2024 1:55 PM EDT [facility] CO2, Plasma 18(L) 22 - 29 mmol/L 11/08/2024 1:55 PM EDT [facility] Anion Gap 14 6 - 16 mmol/L 11/08/2024 1:55 PM EDT [facility] Total Calcium, Plasma 7.6(L) 8.9 - 10.2 mg/dL 11/08/2024 1:55 PM EDT [facility] Total Protein 6.2(L) 6.3 - 7.9 g/dL 11/08/2024 1:55 PM EDT [facility] Albumin, Plasma 2.6(L) 3.5 - 5.2 g/dL 11/08/2024 1:55 PM EDT [facility] AST, Plasma 62(H) 10 - 35 U/L 11/08/2024 1:55 PM EDT [facility] Comment:Hemolyzed, result ma y be falsely increased. ALT, Plasma 22 10 - 35 U/L 11/08/2024 1:55 PM EDT [facility] Alkaline Phosphatase, Plasma 231(H) 35 - 104 U/L 11/08/2024 1:55 PM EDT [facility] Total Bilirubin, Plasma 1.0 0.2 - 1.1 mg/dL 11/08/2024 1:55 PM EDT [facility] eGFRcr 38.9 mL/min/1.7 3m*2 11/08/2024 1:55 PM EDT [facility] Comment:Reported eGFRcr in m L/min/1.73m2 is based the CKD-EPI 2020 equation that does not use a race coefficient. Blood Venous blood specimen / Unknown Venipuncture / Unknown 11/08/2024 1:12 PM EDT 11/08/2024 1:25 PM EDT us Long Rios MD LAB BLOOD ORDERABLES Final R esult [facility] [address] [place] [address] * EKG now - STAT (adult) (11/08/2024 11:25 AM EDT) EKG DIAGNOSIS CLASS Borderline Abnormal MUSE ECG Ventricular Rate 94 BPM MUSE ECG Atrial Rate 94 BPM MUSE ECG KS Interval 128 ms MUSE ECG QRSD Interval 100 ms MUSE ECG QT Interval 364 ms MUSE ECG QTC Interval 455 ms MUSE ECG P [place] 65 degrees MUSE ECG R [place] 11 degrees MUSE ECG T Wave [place] 8 degrees MUSE ECG Diagnosis Normal sinus rhythm MUSE ECG Diagnosis RSR' V1, is likely a normal variant MUSE ECG Diagnosis Borderline ECG MUSE ECG Diagnosis MUSE ECG Diagnosis Confirmed by Yovani Liu ([id number]) on 11/09/2024 9:56:32 AM MUSE ECG 11/08/2024 11:2 5 AM EDT 11/09/2024 9:56 AM EDT us Long Rios MD ECG ORDERABLES Final Result Performing Organization Address City/[facility] [place] Co de Phone Number MUSE ECG documented [...] Once in imaging, 1 dose, Starting on [place] 11/09/24 at 0752, Until [place] 11/09/24 at 0852, Routine, Imaging Protocol Orders [...] Intravenous, Every 12 hours, First dose on Sun11/08/24 at 1855, Until Discontinued, Routine Given 11/10/2024 [...] Alternative - Provider: Clarissa Marie, INOCENCIA) ondansetron (Zofran) injection 4 mg(Linked Group 4) [...] Greenwood RN) 0844 (Given - Provider: Clarissa Marie, INOCENCIA) sodium chloride 0.9 % flush 10 mL(Linked Group 1) 10 mL, Intravenous, As needed, Starting on 11/11/24 at 1603, Until Sun11/14/24 at 2250, Routine, [...] documented as of this encounter Care Teams Digital Marketing Coordinator Relationship Specialty Start Date End Date Pcp, [place] [address] PCP - General Family Medicine 06/16/23 documented as of this encounter
--- OUTSIDE RECORDS SUMMARY | 2024-11-17 12:26 | XMS_ITS | Encounter Summary ---
Author Organization [facility] Address [address] [place] [address] Care Team Providers Care Care Professional Name Role Phone Pcp, No Primary Care Provider Unavailabl e Reason for Referral * Imaging (Routine) - Closed Specialty Diagnoses / Procedures Referred By Dung chang Referred To Contact Radiology Diagnoses Metastasis to liver Procedures IR Embolization Tumor or Ischemia or Infarction Franko Nava MD [address] [place] [address] Phone: tel: fax: Referral ID Status Reason Start Date Expiration Date Visits Re quested Visits Authorized [id number] Closed 11/14/2024 05/16/2026 1 1 Reason for Visit * Reason Comments Vomiting * Auth/Cert (Routine) Specialty Diagnoses / Procedures Referred By Dung chang Referred To Contact Diagnoses RUQ abdominal pain Vinicius Love MD [address] [facility] [address] [place] [address] Phone: tel: fax: PAV A Emergency Department [address] [place] [address] Phone: tel: Referral ID Status Reason Start Date Expiration Date Visits Re quested Visits Authorized [id number] 1 1 Encounter Details Date Type Department Care Team (Late st Contact Info) Description 11/17/2024 1:26 PM EDT - 11/21/2024 10:43 AM EDT Hospital Encounter PAV A Inpatient [facility] [address] [place] [id number] Elisabeth Hernandez MD [address] [place] [address] Vinicius Love MD [address] [place] [address] RUQ abdominal pain (Primary Dx); [...] any time in the past 12 m [facility], were you homeless or living in a long term (including now)? No 11/18/2024 [facility] Utilities Answer Date Recorded In [...] drink first t nicolas in the morning (EYE-GLASS ARTIST) to steady your nerves or to get [...] - 11/17/2024 3:36 PM EDT Call MD business consultant for GYO service if: - you have a fever of 100.4 F or more - vaginal bleeding similar to a period - uncontrolled pain - difficulty with urination - persistent nausea/vomiting Follow up: Dr. Vinicius Love - [facility] [address], [address], [place] [address] documented in this encounter Medications at Time [...] from the original note were not included. [id number] Pantoprazole WHY is this medicine prescribed? Pantoprazole [...] or doctor for a copy of the stamp pad maker's information for the patient. Are there OTHER [...] and out of their sight and reach. [email or web address]://www.[employer]Compario[employer] Dispose of unneeded medications in a way [...] be awakened, immediately call emergency services at 631. What OTHER INFORMATION should I know? Keep [...] of all of the prescription and nonprescription (gwif-zje-hkwjcqo) medicines, vitamins, minerals, and dietary supplements you [...] or pharmacist about specific clinical use. The [employer] represents that the information provided hereunder was formulated with a reasonable standard of care, and in conformity with professional standards in the field. The [employer] makes no representations or warranties, express or implied, including, but not limited to, any implied warranty of merchantability and/or fitness for a particular purpose, with respect to such information and specifically disclaims all such warranties. Users are advised that decisions regarding drug therapy are complex medical decisions requiring the independent, informed decision of an appropriate health wound care nurse, and the information is provided for informational purposes only. The entire monograph for a drug should be reviewed for a thorough understanding of the drug's actions, uses and side effects. The [employer] does not endorse or recommend the use of any drug.The information is not a substitute for medical care. AHFS?? Patient Medication Information?. ?? Copyright, 2023. The [employer] Pharmac[employer]??, [address], [address], [place], [place]. All Rights Reserved. Duplication for commercial use must be authorized by [facility]. Selected Revisions: January 24, 2023. AHFS?? Patient Medication Information?. ?? Copyright, 2024 * Ismael On[facility] - Kim Black RN - 11/21/2024 8:57 AM EDT Images from the original note were not included. [id number] Ondansetron WHY is this medicine prescribed? Ondansetron [...] and out of their sight and reach. [email or web address]://www.[employer].org Dispose of unneeded medications in a way [...] be awakened, immediately call emergency services at 442. Symptoms of overdose may include: ? sudden [...] of all of the prescription and nonprescription (hskv-mcg-rqotipk) medicines, vitamins, minerals, and dietary supplements you [...] or pharmacist about specific clinical use. The [employer] represents that the information provided hereunder was formulated with a reasonable standard of care, and in conformity with professional standards in the field. The [employer] makes no representations or warranties, express or implied, including, but not limited to, any implied warranty of merchantability and/or fitness for a particular purpose, with respect to such information and specifically disclaims all such warranties. Users are advised that decisions regarding drug therapy are complex medical decisions requiring the independent, informed decision of an appropriate health wound care nurse, and the information is provided for informational purposes only. The entire monograph for a drug should be reviewed for a thorough understanding of the drug's actions, uses and side effects. The [employer] does not endorse or recommend the use of any drug.The information is not a substitute for medical care. AHFS?? Patient Medication Information?. ?? Copyright, 2023. The [employer]??, [address], [address], [place], [place]. All Rights Reserved. Duplication for commercial use must be authorized by [facility]. Selected Revisions: September 29, 2023. AHFS?? Patient Medication Information?. ?? Copyright, 2024 * Ismael [facility] - Kim Black RN - 11/21/2024 8:57 AM EDT Images from the original note were not included. [id number] Magnesium Oxide WHY is this medicine prescribed? [...] of all of the prescription and nonprescription (hczj-xex-pbjaznj) medicines, vitamins, minerals, and dietary supplements you [...] or pharmacist about specific clinical use. The [employer]. represents that the information provided hereunder was formulated with a reasonable standard of care, and in conformity with professional standards in the field. The [employer] makes no representations or warranties, express or implied, including, but not limited to, any implied warranty of merchantability and/or fitness for a particular purpose, with respect to such information and specifically disclaims all such warranties. Users are advised that decisions regarding drug therapy are complex medical decisions requiring the independent, informed decision of an appropriate health wound care nurse, and the information is provided for informational purposes only. The entire monograph for a drug should be reviewed for a thorough understanding of the drug's actions, uses and side effects. The [employer] does not endorse or recommend the use of any drug.The information is not a substitute for medical care. AHFS?? Patient Medication Information?. ?? Copyright, 2023. The [employer] Pharmacists??, [address], [address], [place], [place]. All Rights Reserved. Duplication for commercial use must be authorized by [facility]. Selected Revisions: August 30, 2023. AHFS?? Patient Medication Information?. ?? Copyright, 2024 * [facility] Kim Black RN - 11/21/2024 8:56 AM EDT Images from the original note were not included. [id number] Abdominal Pain Abdominal pain means pain in [...] All medicines you take, both prescription and dlmt-bfd-gspfwbu ? What vitamins, herbs, and other supplements [...] again, start lightly. Eat small amounts of nelm-ht-mgaxmp, low-fat foods. These include applesauce, toast, or [...] bed. Last Reviewed Date: 2023 00:00:00 ?? [id number] [employer]. All rights reserved. This information is not intended as a substitute for professional medical care. Always follow your healthcare professional's instructions. * Discharge Instr - Other Orders - Kim Black RN - 11/21/2024 8:56 AM EDT If you need to contact your doctors after hours, please call [phone] and ask for the doctor brittany for GYO-CATH LAB MANAGER Oncology. * Discharge Summary - Maggie Nguyen MD - 11/21/2024 8:21 AM EDT Images from the original note were not included. DISCHARGE SUMMARY Hospitalization Admit Date/Time: 11/17/2024 1:26 PM Admitting Attending: Vinicius Love Discharge Date: 11/21/2024 Discharge Attending Physician: Vinicius Love MD PCP name and Address: Pcp, Saloni Hyde [facility] [address] Referring provider name and address: No referring provider defined for this encounter. Chief Concern, Brief History of Present Illness, and Hospital Course Radha Aparicio is a 44 y.o. with high grade endometroid adenocarcinoma who presented with n/v and loose stools and was admitted on 11/17. RUQ US showed gallbladder thickening concerning for cholecystitis. Patient was made NPO and underwent Wrangell embolization of liver mass and liver mass [...] MD in 1 week. Surgeries and Procedures Wrangell embolization of liver mass with liver mass [...] Your Medications These medications were sent to [facility] - [place], [place] - 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 Vinicius Love - [facility] [address], [address], [place] [address] Outpatient Follow-Up Future Appointments Date Time Provider [...] am with associated diarrhea - Labs H [id number]-34-83-9s-26-22-1u P 308-220-249 W 74-5-53-15-13 Lipase 14 - RUQ US 11/17: cholelithiasis w/ gallbladder wall thickening c/f cholecystitis. Redemonstrated largeintraparenchymal liver mass. Few punctate nonobstructive renal calculi in R kidney, no hydro - PE: +Randolph sign, no signs of acute peritonitis - [...] biopsy with IR on 11/18 - AST [id number] ALT [id number] - T. Bili 0.7-0.7 - discussed with [...] per chart review) with Dr. Veloz at [facility] - Lost to follow up due [...] several large liver lesions (right dome -- [id number] (enlarged from 4.7 x 4.2) & 10.5 [...] conclusion of chemotherapy) - Care transferred to [facility] 11/10, s/p cefoxitin (11/08-11/10) - s/p liver embolization and biopsy 11/18 - liver biopsy 11/18 positive for malignant carcinoma # FEN/PPX - GIS/HLIV - SCDs/pLov - Replete electrolytes PRN Dispo: Discharge today Please message on-call [facility] resident via [employer] Secure Chat or page [phone] for questions or concerns regarding this patient's [...] Note Radha Aparicio 44 y.o. female CSN: [id number] Admission: 11/17/2024 1:26 PM Primary Problem: RUQ abdominal pain Primary Suction Worker: Primary Caregiver: Self Assistance Available at Discharge: aunt Clara and Jennifer Current Outpatient/Agency/Support Group: clinic(s) Availability of Care Givers (#Hours): 24 hours Family/Suction Worker(s) Willingness Assessed to care for patient at home: Yes Family/Suction Worker(s) Readiness Assessed to care for patient at home: Yes Housing Circumstances-Z Codes: Housing Circumstances (select all that apply): Low Income (101-300% Federal Poverty Guidlines) - Z596 Discharge Facility/Level of Care Needs: Discharge Facility/Level of Care Needs: 1-Home or Self Care Patient's Choice of Community Agency(s): [facility] clinic Patient/Family Anticipated Services at Transition: Patient/Family [...] and will provide transport and home assistance. Sat1zou enrollment complete. Radha Langston RN * Significant [...] cholecystitis. Patient was made NPO and underwent [place]rangell embolization of liver mass and liver mass [...] am with associated diarrhea - Labs H [id number] P 308-220-249 W 12-9-11 Lipase 14 - RUQ US 11/17: cholelithiasis w/ gallbladder wall thickening c/f cholecystitis. Redemonstrated largeintraparenchymal liver mass. Few punctate nonobstructive renal calculi in R kidney, no hydro - PE: +Randolph sign, no signs of acute peritonitis - [...] per chart review) with Dr. Veloz at [facility] - Lost to follow up due [...] several large liver lesions (right dome -- [id number] (enlarged from 4.7 x 4.2) & 10.5 [...] management. Please message on-call GYO resident via [employer] Secure Chat or page [phone] for questions or concerns regarding this patient's [...] from the original note were not included. [id number] Preventing a Surgical Site Infection A risk [...] of infection. ? Controlled body temperature. A kuycn-tisx-dcizyg temperature during or after surgery prevents oxygen [...] and water or with an alcohol-based hand dump truck driver off highway before and after caring for you. Don?t [...] away. Last Reviewed Date: 2024 00:00:00 ?? 0642-2052 [employer]. All rights reserved. This information is not intended as a substitute for professional medical care. Always follow your healthcare professional's instructions. * Ismael On[facility] - Erika Sawyer RN - 11/19/2024 9:24 AM EDT Images from the original note were not included. 25786 HIDA Scan A HIDA (hepatobiliary iminodiacetic acid [...] you?re taking. This includes vitamins, herbs, and xidp-juh-molhwpk medicines. You may be told to stop [...] is done by a nuclear medicine or cardiovascular technologist. It can be done in a [...] tracer Last Reviewed Date: 2022 00:00:00 ?? [id number] [employer]. All rights reserved. This information is not intended as a substitute for professional medical care. Always follow your healthcare professional's instructions. * Ismael Velázquez - Erika Sawyer RN - 11/19/2024 9:24 AM EDT Images from the original note were not included. [id number] Possible Gallstone with Biliary Colic (Presumed) Your [...] rate Last Reviewed Date: 2021 00:00:00 ?? 3818-5801 [employer]. All rights reserved. This information is not intended as a substitute for professional medical care. Always follow your healthcare professional's instructions. * Ismael Velázquez - Erika Sawyer RN - 11/19/2024 9:24 AM EDT Images from the original note were not included. 79387 Cholecystectomy You?ve had painful attacks caused by [...] medicines you take. Include both prescription and mmzp-sis-zcjysxa medicines. Also include vitamins, herbs, and supplements. [...] time Last Reviewed Date: 2023 00:00:00 ?? 8925-3912 [employer]. All rights reserved. This information is not [...] the video go to this web address: [email or web address] Or, scan this QR code with your smart phone ?? [facility] * Consults - Shruthi Espitia RD - 11/19/2024 8:26 AM EDT Adult Nutrition Evaluation Note Radha Aparicio 44 y.o. female CSN: [id number] Room/Bed 140/140A Nutrition evaluation type: assessment Reason [...] 2 (BMI 35-39.9) Weight History: UBW ~245# [place] Body Weight (kg): 65.9 Percent [place] Body Weight: 174 Estimated Needs: Current Nutrition [...] in R kidney, no hydro - PE: +Randolph sign, no signs of acute peritonitis - [...] per chart review) with Dr. Veloz at [facility] - Lost to follow up due [...] several large liver lesions (right dome -- [id number] (enlarged from 4.7 x 4.2) & 10.5 [...] conclusion of chemotherapy) - Care transferred to [facility] 11/10, s/p cefoxitin (11/08-11/10) - s/p liver embolization and biopsy 11/18 Plan: - f/up biopsy results # FEN/PPX - NPO/LR @ 75 - SCDs/hold plov in setting of hemorrhagic liver lesions - Replete electrolytes PRN Dispo: Continue inpatient management. Please message on-call [facility] resident via [employer] Secure Chat or page [phone] for questions or concerns regarding this patient's [...] Note Radha Aparicio 44 y.o. female CSN: [id number] Admission: 11/17/2024 1:26 PM Primary Problem: RUQ abdominal pain Business Applications Analyst reviewed chart and spoke with patient to complete this Initial Case Management Assessment. PCP: Dr. Benny Gonzalez Emergency Contact: Extended Emergency Contact Information Primary Emergency Contact: Kaushal Aparicio Mobile Relation: Brother Preferred language: Persian Crate Tier needed? No Secondary Emergency Contact: Irish Joiner Mobile Relation: Daughter Insurance: Primary Visit Coverage Payer Plan Sponsor Code Group Number Group Name [employer] [facility] . Primary Visit Coverage Subscriber Subscriber ID Subscriber Name Subscriber SSN Subscriber Address [id number] RADHA APARICIO [id number] [place] [address] Patient information: re-admit to with high grade endometrioid adenocarcinoma and persistent n/v/diarrhea and ab pain c/f cholecystitis. Patient reports doing well on pain and nausea regimen since discharge 11/12 Nausea and vomiting started 9/8 am with associated diarrhea. Home address and insurance confirmed. Reports good support from family and home assistance and transport. Daily Living Activities: independent [address] [place] [address] Current DME: none reported. Income Information: unemployed Income meets expenses. Housing Circumstances-Z Codes: low income 101-300% Federal Poverty Guideline Patient Referred to: n/a Anticipated Discharge Date: 2-4 day Patient's Discharge Goal: home Assistance Available at Discharge: self/family Discharge Transport: family Follow Up Transport: family Home Health / Home Infusion / Outpatient Dialysis Services: none reported Living Will/Advance Directive/Power of Ship Liner /Guardian: none reported Have you reviewed your Advance Directive and is it valid for this stay?: Not applicable Advance Directive: Not applicable Information Provided on Healthcare Directives: No Pre-existing DNR/DNI Order: No Patient Requests Assistance: No Additional Comments: per team, not medically ready for discharge. Pending today for IR biopsy/ embolization. Radah Langston RN * Significant Event - Michelle [...] also pertinent to this visit. Planned Procedure: Wrangell embolization of liver mass with liver mass [...] been discussed with the patient and/or their motor vehicle field representative. All questions answered and they agree [...] in R kidney, no hydro - PE: +Randolph sign, no signs of acute peritonitis - [...] per chart review) with Dr. Veloz at [facility] - Lost to follow up due [...] several large liver lesions (right dome -- [id number] (enlarged from 4.7 x 4.2) & 10.5 [...] management. Please message on-call [facility] resident via [employer] Secure Chat or page [phone] for questions or concerns regarding this patient's [...] that would be needed Recommend admission to senior consumer insights consultant onc vs medicine EGS will continue to follow * H&P - Rebekah Kwan MD - 11/17/2024 4:08 PM EDT Gynecologic Oncology History and Physical Patient Name: Radha Aparicio : 1980 Date of Admission: 11/17/24 Chief Concern: Chief Complaint Patient presents with Vomiting Primary Oncologist: Dr. Vinicius Love/Dr. Veloz ([place]) Subjective Subjective History of Present Illness: Radha [...] no distension. Tenderness: Tenderness: TTP of RUQ, +Randolph sign. There is no guarding or rebound. [...] in R kidney, no hydro - PE: +Randolph sign, no signs of acute peritonitis - [...] per chart review) with Dr. Veloz at [facility] - Lost to follow up due [...] several large liver lesions (right dome -- [id number] (enlarged from 4.7 x 4.2) & 10.5 [...] acute Please message on-call GYO resident via [employer] Secure Chat or page [phone] for questions or concerns regarding this patient's care. Rebekah FLORES PGY-1 *1953 [1] Past Medical History: Diagnosis Date Disease of salivary gland, unspecified Parotid mass [2] Past Surgical History: Procedure Laterality Date HYSTERECTOMY N/A Hysterectomy from [facility] TUBAL LIGATION N/A Tubal ligation from [facility] [3] Family History Problem Relation Name [...] No Social Connections: Unknown (12/17/2022) Received from [facility] Family and Community Support Help with Day-to-Day [...] hysterectomy in 2018 along with chemo from 0410-6832) that previously saw the GYO team and was lost to follow up who recently was admitted with concern for RUQ pain, with recent admission when noted tohave worsening mets to liver and spleen with further workup pending and negative cholecystitis concern presenting to [facility] on 11/17/2024 with recurrent RUQ symptoms. [...] that would be needed Recommend admission to senior consumer insights consultant onc vs medicine EGS will continue to [...] (BMI 30-39.9) Dispo: Admit to medicine vs senior consumer insights consultant onc CODE STATUS: not specified This Consult, [...] and urinary symptoms. History provided by: Patient spiral tube winder used: No I have reviewed and agree [...] and Affect: Mood normal. Behavior: Behavior normal. [place] Coma Scale Score: 15 ED Course & [...] evaluate [RM] 1636 EGS rec: admission to senior consumer insights consultant onc vs medicine. recommend HIDA scan to further evaluate if there isconcern for cholecystitis before considering risks and benefits of any intervention that would be needed based on that [PA] 1731 CATH LAB MANAGER ONC to admit patient to their team. [...] admission for the listed diagnoses. The OG CATH LAB MANAGER service wasconsulted for admission and was agreeable to admit to Acute Floor (Med/Surg). ED Prescriptions None Disposition Admit Admitting/Attending Physician: VINICIUS LOVE [[id number]] Provider Care Team: [facility] CATH LAB MANAGER ONCOLOGY [[id number]] Are they the primary team?: [...] EST Appointment [facility] Radiology [address] [place] [address] 03/19/2025 1:45 PM EST Office Visit [facility] Gynecology [address] [place] [address] Vinicius Love MD [address] [place] [address] Pending Results Name Type Priority [...] - 4.5 mg/dL 11/21/2024 5:27 AM EDT [facility] Blood Venous blood specimen / Unknown Venipuncture / Unknown 11/21/2024 3:19 AM EDT 11/21/2024 3:27 AM EDT us Vinicius Love MD LAB BLOOD ORDERABLES Final Re sult Performing Organization Address City/[facility]/ZIP [place] [address] * (ABNORMAL) Magnesium (11/21/2024 3:19 AM EDT) Magnesium, Plasma 1.6(L) 1.9 - 2.4 mg/dL 11/21/2024 3:58 AM EDT [facility] Blood Venous blood specimen / Unknown Venipuncture / Unknown 11/21/2024 3:19 AM EDT 11/21/2024 3:27 AM EDT us Vinicius Love MD LAB BLOOD ORDERABLES Final Re sult Performing Organization Address [facility] Co de Phone Number [place] [address] * (ABNORMAL) IONIZED CALCIUM, SERUM (11/21/2024 3:19 AM EDT) Ionized Calcium, Serum 4.5(L) 4.6 - 5.3 mg/dL LAB HEMATOLOGY METHOD 11/21/2024 3:53 AM EDT [facility] Blood Venous blood specimen / Unknown Venipuncture / Unknown 11/21/2024 3:19 AM EDT 11/21/2024 3:27 AM EDT us Vinicius Love MD LAB BLOOD ORDERABLES Final Re sult Performing Organization Address City/[facility]/ZIP [place] [address] * (ABNORMAL) Comprehensive metabolic panel (11/21/2024 3:19 AM EDT) [facility] Glucose, Plasma 116(H) 74 - 99 mg/dL 11/21/2024 3:58 AM EDT [facility] BUN, Plasma 11 7 - 21 mg/dL 11/21/2024 3:58 AM EDT [facility] Creatinine, Plasma 0.77 0.60 - 1.10 mg/dL 11/21/2024 3:58 AM EDT [facility] BUN/Creatinine Ratio 14 11/21/2024 3:58 AM EDT [facility] Sodium, Plasma 137 136 - 145 mmol/L 11/21/2024 3:58 AM EDT [facility] Potassium, Plasma 3.4(L) 3.6 - 4.9 mmol/L 11/21/2024 3:58 AM EDT [facility] Chloride, Plasma 103 97 - 107 mmol/L 11/21/2024 3:58 AM EDT [facility] CO2, Plasma 21(L) 22 - 29 mmol/L 11/21/2024 3:58 AM EDT [facility] Anion Gap 13 6 - 16 mmol/L 11/21/2024 3:58 AM EDT [facility] Total Calcium, Plasma 7.9(L) 8.9 - 10.2 mg/dL 11/21/2024 3:58 AM EDT [facility] Total Protein 5.7(L) 6.3 - 7.9 g/dL 11/21/2024 3:58 AM EDT [facility] Albumin, Plasma 2.4(L) 3.5 - 5.2 g/dL 11/21/2024 3:58 AM EDT [facility] AST, Plasma 188(H) 10 - 35 U/L 11/21/2024 3:58 AM EDT [facility] ALT, Plasma 167(H) 10 - 35 U/L 11/21/2024 3:58 AM EDT [facility] Alkaline Phosphatase, Plasma 505(H) 35 - 104 U/L 11/21/2024 3:58 AM EDT [facility] Total Bilirubin, Plasma 1.0 0.2 - 1.1 mg/dL 11/21/2024 3:58 AM EDT [facility] eGFRcr 96.5 mL/min/1.7 3m*2 11/21/2024 3:58 AM EDT [facility] Comment:Reported eGFRcr in m L/min/1.73m2 is based the CKD-EPI 2020 equation that does not use a race coefficient. Blood Venous blood specimen / Unknown Venipuncture / Unknown 11/21/2024 3:19 AM EDT 11/21/2024 3:27 AM EDT us Vinicius Love MD LAB BLOOD ORDERABLES Final Re sult [facility] [address] [place] [address] * (ABNORMAL) CBC W/O Differential (11/21/2024 3:19 AM EDT) WBC Count 12.55(H) 3.70 - 10.30 10*3/uL LAB HEMATOLOGY METHOD 11/21/2024 3:35 AM EDT [facility] RBC Count 2.70(L) 3.90 - 5.20 10*6/uL LAB HEMATOLOGY METHOD 11/21/2024 3:35 AM EDT [facility] HGB 7.3(L) 11.2 - 15.7 g/dL LAB HEMATOLOGY METHOD 11/21/2024 3:35 AM EDT [facility] HCT 22.1(L) 34.0 - 45.0 % LAB HEMATOLOGY METHOD 11/21/2024 3:35 AM EDT [facility] Platelet Count 236 155 - 369 10*3/uL LAB HEMATOLOGY METHOD 11/21/2024 3:35 AM EDT [facility] MCV 82 79 - 98 fL LAB HEMATOLOGY METHOD 11/21/2024 3:35 AM EDT [facility] MCH 27.0 26.0 - 32.0 pg LAB HEMATOLOGY METHOD 11/21/2024 3:35 AM EDT [facility] MCHC 33.0 30.7 - 35.5 g/dL LAB HEMATOLOGY METHOD 11/21/2024 3:35 AM EDT [facility] RDW 16.0(H) 11.5 - 14.5 % LAB HEMATOLOGY METHOD 11/21/2024 3:35 AM EDT [facility] MPV 9.7 8.8 - 12.5 fL LAB HEMATOLOGY METHOD 11/21/2024 3:35 AM EDT [facility] nRBC 0.0 <=0.0 per 100 WBCs LAB HEMATOLOGY METHOD 11/21/2024 3:35 AM EDT [facility] Blood Venous blood specimen / Unknown Venipuncture / Unknown 11/21/2024 3:19 AM EDT 11/21/2024 3:28 AM EDT us Vinicius Love MD LAB BLOOD ORDERABLES Final Re sult [facility] [address] [place] [address] * (ABNORMAL) Comprehensive metabolic panel (11/20/2024 12:42 PM EDT) Glucose, Plasma 119(H) 74 - 99 mg/dL 11/20/2024 1:49 PM EDT [facility] BUN, Plasma 13 7 - 21 mg/dL 11/20/2024 1:49 PM EDT [facility] Creatinine, Plasma 0.79 0.60 - 1.10 mg/dL 11/20/2024 1:49 PM EDT [facility] BUN/Creatinine Ratio 16 11/20/2024 1:49 PM EDT [facility] Sodium, Plasma 135(L) 136 - 145 mmol/L 11/20/2024 1:49 PM EDT [facility] Potassium, Plasma 3.8 3.6 - 4.9 mmol/L 11/20/2024 1:49 PM EDT [facility] Chloride, Plasma 103 97 - 107 mmol/L 11/20/2024 1:49 PM EDT [facility] CO2, Plasma 20(L) 22 - 29 mmol/L 11/20/2024 1:49 PM EDT [facility] Anion Gap 12 6 - 16 mmol/L 11/20/2024 1:49 PM EDT [facility] Total Calcium, Plasma 8.1(L) 8.9 - 10.2 mg/dL 11/20/2024 1:49 PM EDT [facility] Total Protein 6.3 6.3 - 7.9 g/dL 11/20/2024 1:49 PM EDT [facility] Albumin, Plasma 2.7(L) 3.5 - 5.2 g/dL 11/20/2024 1:49 PM EDT [facility] AST, Plasma 442(H) 10 - 35 U/L 11/20/2024 1:49 PM EDT [facility] ALT, Plasma 254(H) 10 - 35 U/L 11/20/2024 1:49 PM EDT [facility] Alkaline Phosphatase, Plasma 513(H) 35 - 104 U/L 11/20/2024 1:49 PM EDT [facility] Total Bilirubin, Plasma 1.1 0.2 - 1.1 mg/dL 11/20/2024 1:49 PM EDT [facility] eGFRcr 93.6 mL/min/1.7 3m*2 11/20/2024 1:49 PM EDT [facility] Comment:Reported eGFRcr in m L/min/1.73m2 is based the CKD-EPI 2020 equation that does not use a race coefficient. Blood Venous blood specimen / Unknown Venipuncture / Unknown 11/20/2024 12:42 PM EDT 11/20/2024 1:11 PM EDT us Vinicius Love MD LAB BLOOD ORDERABLES Final Re sult [facility] [address] [place] [address] * (ABNORMAL) CBC W/O Differential (11/20/2024 12:42 PM EDT) WBC Count 15.25(H) 3.70 - 10.30 10*3/uL LAB HEMATOLOGY METHOD 11/20/2024 1:23 PM EDT [facility] RBC Count 3.09(L) 3.90 - 5.20 10*6/uL LAB HEMATOLOGY METHOD 11/20/2024 1:23 PM EDT [facility] HGB 8.5(L) 11.2 - 15.7 g/dL LAB HEMATOLOGY METHOD 11/20/2024 1:23 PM EDT [facility] HCT 25.5(L) 34.0 - 45.0 % LAB HEMATOLOGY METHOD 11/20/2024 1:23 PM EDT [facility] Platelet Count 292 155 - 369 10*3/uL LAB HEMATOLOGY METHOD 11/20/2024 1:23 PM EDT [facility] MCV 83 79 - 98 fL LAB HEMATOLOGY METHOD 11/20/2024 1:23 PM EDT [facility] MCH 27.5 26.0 - 32.0 pg LAB HEMATOLOGY METHOD 11/20/2024 1:23 PM EDT [facility] MCHC 33.3 30.7 - 35.5 g/dL LAB HEMATOLOGY METHOD 11/20/2024 1:23 PM EDT [facility] RDW 15.9(H) 11.5 - 14.5 % LAB HEMATOLOGY METHOD 11/20/2024 1:23 PM EDT [facility] MPV 9.7 8.8 - 12.5 fL LAB HEMATOLOGY METHOD 11/20/2024 1:23 PM EDT [facility] nRBC 0.0 <=0.0 per 100 WBCs LAB HEMATOLOGY METHOD 11/20/2024 1:23 PM EDT [facility] Blood Venous blood specimen / Unknown Venipuncture / Unknown 11/20/2024 12:42 PM EDT 11/20/2024 1:06 PM EDT Vinicius Love MD LAB BLOOD ORDERABLES Final Re sult [facility] [address] [place] [address] * Transfuse RBC (11/20/2024 10:47 AM EDT) us Vinicius Love MD BLOOD TRANSFUSION ORDERABLES Final Result * Transfuse RBC: 1 Units (11/20/2024 10:47 AM EDT) us Vinicius Love MD BLOOD TRANSFUSION ORDERABLES Final Result * Prepare Leukocyte Reduced RBC: 1 Units (11/20/2024 5:27 AM EDT) Product Code [id number] CH BLOO D BANK Dispense Status Transfused BLOOD BANK Blood Expiration Date [id number] BLOOD BANK Unit Number [id number] CH B LOOD BANK Product Blood Type 5100 BLOOD BANK Blood Type O+ CH BLOOD BANK Crossmatch Compatible BLOOD BANK Other Vinicius Love MD BLOOD BANK PRODUCT ORDERABLES Final Result Performing Organization Address City/[facility]/ZIP Co de Phone Number BLOOD BANK [address] * Prepare Leukocyte Reduced RBC: 1 Units (11/20/2024 4:53 AM EDT) Product Code [id number] BLOO D BANK Dispense Status Transfused BLOOD BANK Blood Expiration Date [id number] BLOOD BANK Unit Number [id number] B LOOD BANK Product Blood Type 5100 BLOOD BANK Blood Type O+ BLOOD BANK Crossmatch Compatible BLOOD BANK Other Vinicius Love MD BLOOD BANK PRODUCT ORDERABLES Final Result Performing Organization Address [facility] Co de Phone Number BLOOD BANK [address] * (ABNORMAL) Magnesium (11/20/2024 2:39 AM EDT) Magnesium, Plasma 1.7(L) 1.9 - 2.4 mg/dL 11/20/2024 4:00 AM EDT [facility] Blood Venous blood specimen / Unknown Venipuncture / Unknown 11/20/2024 2:39 AM EDT 11/20/2024 3:28 AM EDT Vinicius Love MD LAB BLOOD ORDERABLES Final Re sult Performing Organization Address City/[facility]/ZIP Co de Phone Number [facility] [address] [place] [address] * IONIZED CALCIUM, SERUM (11/20/2024 2:39 AM EDT) Ionized Calcium, Serum 4.6 4.6 - 5.3 mg/dL LAB HEMATOLOGY METHOD 11/20/2024 4:06 AM EDT [facility] Blood Venous blood specimen / Unknown Venipuncture / Unknown 11/20/2024 2:39 AM EDT 11/20/2024 3:28 AM EDT us Vinicius Love MD LAB BLOOD ORDERABLES Final Re sult [facility] [address] [place] [address] * (ABNORMAL) Comprehensive metabolic panel (11/20/2024 2:39 AM EDT) Pathologist [facility] Glucose, Plasma 108(H) 74 - 99 mg/dL 11/20/2024 4:17 AM EDT [facility] BUN, Plasma 15 7 - 21 mg/dL 11/20/2024 4:17 AM EDT [facility] Creatinine, Plasma 0.91 0.60 - 1.10 mg/dL 11/20/2024 4:17 AM EDT [facility] BUN/Creatinine Ratio 16 11/20/2024 4:17 AM EDT [facility] Sodium, Plasma 139 136 - 145 mmol/L 11/20/2024 4:17 AM EDT [facility] Potassium, Plasma 3.9 3.6 - 4.9 mmol/L 11/20/2024 4:17 AM EDT [facility] Chloride, Plasma 105 97 - 107 mmol/L 11/20/2024 4:17 AM EDT [facility] CO2, Plasma 22 22 - 29 mmol/L 11/20/2024 4:17 AM EDT [facility] Anion Gap 12 6 - 16 mmol/L 11/20/2024 4:17 AM EDT [facility] Total Calcium, Plasma 8.0(L) 8.9 - 10.2 mg/dL 11/20/2024 4:17 AM EDT [facility] Total Protein 6.0(L) 6.3 - 7.9 g/dL 11/20/2024 4:17 AM EDT [facility] Albumin, Plasma 2.5(L) 3.5 - 5.2 g/dL 11/20/2024 4:17 AM EDT [facility] AST, Plasma 701(H) 10 - 35 U/L 11/20/2024 4:17 AM EDT [facility] ALT, Plasma 326(H) 10 - 35 U/L 11/20/2024 4:17 AM EDT [facility] Alkaline Phosphatase, Plasma 478(H) 35 - 104 U/L 11/20/2024 4:17 AM EDT [facility] Total Bilirubin, Plasma 0.7 0.2 - 1.1 mg/dL 11/20/2024 4:17 AM EDT [facility] eGFRcr 79.0 mL/min/1.7 3m*2 11/20/2024 4:17 AM EDT [facility] Comment:Reported eGFRcr in m L/min/1.73m2 is based the CKD-EPI 2020 equation that does not use a race coefficient. Blood Venous blood specimen / Unknown Venipuncture / Unknown 11/20/2024 2:39 AM EDT 11/20/2024 3:28 AM EDT us Vinicius Love MD LAB BLOOD ORDERABLES Final Re sult [facility] [address] [place] [address] * (ABNORMAL) CBC W/O Differential (11/20/2024 2:39 AM EDT) WBC Count 10.93(H) 3.70 - 10.30 10*3/uL LAB HEMATOLOGY METHOD 11/20/2024 3:40 AM EDT [facility] RBC Count 2.57(L) 3.90 - 5.20 10*6/uL LAB HEMATOLOGY METHOD 11/20/2024 3:40 AM EDT [facility] HGB 6.7(L) 11.2 - 15.7 g/dL LAB HEMATOLOGY METHOD 11/20/2024 3:40 AM EDT [facility] HCT 21.2(L) 34.0 - 45.0 % LAB HEMATOLOGY METHOD 11/20/2024 3:40 AM EDT [facility] Platelet Count 261 155 - 369 10*3/uL LAB HEMATOLOGY METHOD 11/20/2024 3:40 AM EDT [facility] MCV 83 79 - 98 fL LAB HEMATOLOGY METHOD 11/20/2024 3:40 AM EDT [facility] MCH 26.1 26.0 - 32.0 pg LAB HEMATOLOGY METHOD 11/20/2024 3:40 AM EDT [facility] MCHC 31.6 30.7 - 35.5 g/dL LAB HEMATOLOGY METHOD 11/20/2024 3:40 AM EDT [facility] RDW 16.5(H) 11.5 - 14.5 % LAB HEMATOLOGY METHOD 11/20/2024 3:40 AM EDT [facility] MPV 10.1 8.8 - 12.5 fL LAB HEMATOLOGY METHOD 11/20/2024 3:40 AM EDT [facility] nRBC 0.0 <=0.0 per 100 WBCs LAB HEMATOLOGY METHOD 11/20/2024 3:40 AM EDT [facility] Blood Venous blood specimen / Unknown Venipuncture / Unknown 11/20/2024 2:39 AM EDT 11/20/2024 3:24 AM EDT us Vinicius Love MD LAB BLOOD ORDERABLES Final Re sult [facility] [address] [place] [address] * [place] Hepatobiliary Scan w Pharm Challenge [...] [employer]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 At 58 [...] 11/19/2024 5:29 PM us Vinicius Love MD [facility] PROCEDURES Final Resul t * Magnesium (11/19/2024 4:11 AM EDT) Magnesium, Plasma 2.0 1.9 - 2.4 mg/dL 11/19/2024 5:24 AM EDT [facility] Blood Venous blood specimen / Unknown Venipuncture / Unknown 11/19/2024 4:11 AM EDT 11/19/2024 4:17 AM EDT us Vinicius Love MD LAB BLOOD ORDERABLES Final Re sult Performing Organization Address [facility] Co de Phone Number [facility] [address] [place] [address] * IONIZED CALCIUM, SERUM (11/19/2024 4:11 AM EDT) Ionized Calcium, Serum 4.7 4.6 - 5.3 mg/dL LAB HEMATOLOGY METHOD 11/19/2024 4:45 AM EDT [facility] Blood Venous blood specimen / Unknown Venipuncture / Unknown 11/19/2024 4:11 AM EDT 11/19/2024 4:17 AM EDT us Vinicius Love MD LAB BLOOD ORDERABLES Final Re sult Performing Organization Address [facility] Co de Phone Number [facility] [address] [place] [address] * (ABNORMAL) Comprehensive metabolic panel (11/19/2024 4:11 AM EDT) Glucose, Plasma 118(H) 74 - 99 mg/dL 11/19/2024 5:24 AM EDT [facility] BUN, Plasma 11 7 - 21 mg/dL 11/19/2024 5:24 AM EDT [facility] Creatinine, Plasma 0.79 0.60 - 1.10 mg/dL 11/19/2024 5:24 AM EDT [facility] BUN/Creatinine Ratio 14 11/19/2024 5:24 AM EDT [facility] Sodium, Plasma 139 136 - 145 mmol/L 11/19/2024 5:24 AM EDT [facility] Potassium, Plasma 4.4 3.6 - 4.9 mmol/L 11/19/2024 5:24 AM EDT [facility] Chloride, Plasma 104 97 - 107 mmol/L 11/19/2024 5:24 AM EDT [facility] CO2, Plasma 20(L) 22 - 29 mmol/L 11/19/2024 5:24 AM EDT [facility] Anion Gap 15 6 - 16 mmol/L 11/19/2024 5:24 AM EDT [facility] Total Calcium, Plasma 8.4(L) 8.9 - 10.2 mg/dL 11/19/2024 5:24 AM EDT [facility] Total Protein 6.9 6.3 - 7.9 g/dL 11/19/2024 5:24 AM EDT [facility] Albumin, Plasma 3.0(L) 3.5 - 5.2 g/dL 11/19/2024 5:24 AM EDT [facility] AST, Plasma 1,474(H) 10 - 35 U/L 11/19/2024 5:24 AM EDT [facility] ALT, Plasma 388(H) 10 - 35 U/L 11/19/2024 5:24 AM EDT [facility] Alkaline Phosphatase, Plasma 321(H) 35 - 104 U/L 11/19/2024 5:24 AM EDT [facility] Total Bilirubin, Plasma 0.7 0.2 - 1.1 mg/dL 11/19/2024 5:24 AM EDT [facility] eGFRcr 93.6 mL/min/1.7 3m*2 11/19/2024 5:24 AM EDT [facility] Comment:Reported eGFRcr in m L/min/1.73m2 is based the CKD-EPI 2020 equation that does not use a race coefficient. Blood Venous blood specimen / Unknown Venipuncture / Unknown 11/19/2024 4:11 AM EDT 11/19/2024 4:17 AM EDT us Vinicius Love MD LAB BLOOD ORDERABLES Final Re sult [facility] [address] [place] [address] * (ABNORMAL) CBC W/O Differential (11/19/2024 4:11 AM EDT) WBC Count 10.74(H) 3.70 - 10.30 10*3/uL LAB HEMATOLOGY METHOD 11/19/2024 4:37 AM EDT [facility] RBC Count 2.90(L) 3.90 - 5.20 10*6/uL LAB HEMATOLOGY METHOD 11/19/2024 4:37 AM EDT [facility] HGB 7.8(L) 11.2 - 15.7 g/dL LAB HEMATOLOGY METHOD 11/19/2024 4:37 AM EDT [facility] HCT 24.5(L) 34.0 - 45.0 % LAB HEMATOLOGY METHOD 11/19/2024 4:37 AM EDT [facility] Platelet Count 249 155 - 369 10*3/uL LAB HEMATOLOGY METHOD 11/19/2024 4:37 AM EDT [facility] MCV 85 79 - 98 fL LAB HEMATOLOGY METHOD 11/19/2024 4:37 AM EDT [facility] MCH 26.9 26.0 - 32.0 pg LAB HEMATOLOGY METHOD 11/19/2024 4:37 AM EDT [facility] MCHC 31.8 30.7 - 35.5 g/dL LAB HEMATOLOGY METHOD 11/19/2024 4:37 AM EDT [facility] RDW 16.1(H) 11.5 - 14.5 % LAB HEMATOLOGY METHOD 11/19/2024 4:37 AM EDT [facility] MPV 10.1 8.8 - 12.5 fL LAB HEMATOLOGY METHOD 11/19/2024 4:37 AM EDT [facility] nRBC 0.0 <=0.0 per 100 WBCs LAB HEMATOLOGY METHOD 11/19/2024 4:37 AM EDT [facility] Blood Venous blood specimen / Unknown Venipuncture / Unknown 11/19/2024 4:11 AM EDT 11/19/2024 4:17 AM EDT us Vinicius Love MD LAB BLOOD ORDERABLES Final Re sult [facility] [address] [place] [address] * Surgical Pathology Exam (11/18/2024 3:57 PM EDT) Case Report Surgical Pathology Case: [id number] Authorizing Provider: Franko Nava MD Collected: 11/18/2024 7201 Ordering Location: [facility] Emergency Department Received: 11/18/2024 1620 Pathologist: Geovanny Gomes DO Specimen: Liver 5 5:03 PM EDT [facility] Final Diagnosis LIVER, BIOPSY: - POSITIVE FOR METASTATIC CARCINOMA (SEE COMMENT). 5 5:03 PM EDT [facility] at 1703 EDT Comment The patient's [...] grade endometrioid adenocarcinoma. 5 5:03 PM EDT [facility] Clinical Information mets to the liver 5 5:03 PM EDT [facility] Special and Immunohistochemical Stains IHC: A1-2 CK7: Positive in tumor cells. A1-3 PAX8: Positive in tumor cells. A1-4 ER Non-Quantitative: Positive in tumor cells. All controls show appropriate reactivity. All immunohistochemist ry, in situ hybridization, and histochemical tests were developed by and are performed at the [facility], [address] [place] [address]. All tests reported here, except those addressing [...] negativity on decalcified specimens. 5:03 PM EDT [facility] Gross Description A. LIVER Received in formalin labeled [place] iver , are multiple red-rosales soft tissue cores measuring from 0.3 cm to 1.5 cm in length and up to 0.1 cm in diameter. Entirely submitted in cassette A1. Cold Time: 0 Ro Mcallister 5:03 PM EDT [facility] Intradepartmental Consultation with Agreement Dr. Fuentes 5:03 PM EDT [facility] Note: A resident was involved in the service. I attest I examined the relevant preparations for the specimens and confirmed the diagnosis or interpretation. 5:03 PM EDT [facility] Tissue Liver structure / Unknown Non-blood Collection / Unknown 11/18/2024 3:57 PM EDT 11/18/2024 4:20 PM EDT us Franko Nava MD LAB PATHOLOGY ORDERABLES Fin al Result [facility] [address] [place] [address] * US Guided Needle Biopsy Liver (11/18/2024 [...] concern for intratumoral hemorrhage. Patient presents to [facility] for bland embolization of tumor. Additionally, rebiopsy of liver mass is planned due to possible progression. TECHNIQUE: Mold Capper: Franko Nava MD Secondary Protection Engineer: Luis Miguel Estes M.D. Rad Dose: [id number] [...] PACS. After standard exchanges, a 0.035 inch [employer] wire was advanced. Access was secured using a 5 F vascular sheath. Using a 5 [place] contra 2 catheter, the celiac axis was [...] concern for intratumoral hemorrhage. Patient presents to [facility] formerino embolization of tumor. Additionally, rebiopsy of liver mass isplanned due to possible progression. TECHNIQUE: Mold Capper: Franko Nava MD Secondary Protection Engineer: Luis Miguel Estes M.D. Rad Dose: 1674 [...] 5 F vascular sheath. Using a 5 [place] contra 2catheter, the celiac axis was catheterized. [...] PM us Franko Nava MD [facility] [place] Final Resu lt * IR [...] concern for intratumoral hemorrhage. Patient presents to [facility] for bland embolization of tumor. Additionally, rebiopsy of liver mass is planned due to possible progression. TECHNIQUE: Mold Capper: Franko Nava MD Secondary Protection Engineer: Luis Miguel Estes M.D. Rad Dose: 1674 [...] 5 F vascular sheath. Using a 5 [place] contra 2 catheter, the celiac axis was [...] concern for intratumoral hemorrhage. Patient presents to [facility] embolization of tumor. Additionally, rebiopsy of liver mass isplanned due to possible progression. TECHNIQUE: Mold Capper: Franko Nava MD Secondary Protection Engineer: Luis Miguel Estes M.D. Rad Dose: 1674 [...] 5 F vascular sheath. Using a 5 [place] contra 2catheter, the celiac axis was catheterized. [...] 2:55 PM EDT) Case Report Cytology Case: [id number] Authorizing Provider: Franko Nava MD Collected: 11/18/2024 1455 Ordering Location: [facility] Emergency Department Received: 11/18/2024 1520 Specimen: Liver, LIVER, CT GUIDED CORE BIOPSY 3:41 PM EDT [facility] Final Diagnosis A. LIVER, CT GUIDED CORE BIOPSY: - POSITIVE FOR MALIGNANCY, METASTATIC CARCINOMA CONSISTENT WITH PREVIOUSLY DIAGNOSED ENDOMETRIAL CARCINOMA, SEE COMMENT 3:41 PM EDT [facility] at 1541 EDT Comment History of [...] not identical to the previous surgical specimen ([id number]), the staining pattern noted below is identical to the previous tumor. 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 Material is present in the cell block for ancillary testing as clinically indicated. 3:41 PM EDT [facility] Special and Immunohistochemical Stains IHC: A1-1 CK-AE1/AE3 Positive A1-2 PAX8 Positive A1-3 ER Non-Quantitative Positive, moderate intensity in the majority of the cells A1-4 AR Non-Quantitative Rare positive cells, weak intensity A1-5 Androgen Receptor Positive, variable All controls show appropriate reactivity. All immunohistochemis try, in situ hybridization, and histochemical tests were developed by and are performed at the [facility], [address] [place] [address]. All tests reported here, except those addressing [...] on decalcified specimens. 5 3:41 PM EDT [facility] Intradepartmental Consultation with Agreement Dr. Fuentes 5 3:41 PM EDT [facility] Immediate Evaluation Core biopsy performed by: Dr. Nava Number of sticks: 5 This service has been rendered in part by a resident. A pathologist has personally reviewed the slides/tissue and has rendered and is responsible for diagnosis for the diagnosis that appears on the report. 5 3:41 PM EDT [facility] Clinical History metastesis to liver 5 3:41 PM EDT [facility] Procedure Type US 5 3:41 PM EDT [facility] Size/Description of Lesion liver tumor 5 3:41 PM EDT [facility] [facility] Cancer History Yes 5 3:41 PM EDT [facility] Gross Description A. LIVER, CT GUIDED [...] fixation. Cold Time: 13m 3:41 PM EDT [facility] Note: A resident was involved in the service. I attest I examined the relevant preparations for the specimens and confirmed the diagnosis or interpretation. 3:41 PM EDT [facility] Clinical Information No Dx found. 3:41 PM EDT [facility] Fine Needle Aspirate Liver structure / Unknown Non-blood Collection / Unknown 11/18/2024 2:55 PM EDT 11/18/2024 3:20 PM EDT Franko Nava MD LAB CYTOLOGY ORDERABLES Sonali l Result [facility] [address] [place] [address] * Transfuse RBC (11/18/2024 1:00 PM EDT) [...] ORDERABLE S Final Result Performing Organization Address City/[facility]/ZIP Co de Phone Number BLOOD BANK [address] [place] [address], [place] * Prepare Leukocyte Reduced RBC: 1 Units (11/18/2024 8:49 AM EDT) Product Code [id number] BLOO D BANK Dispense Status Transfused BLOOD BANK Blood Expiration Date [id number] BLOOD BANK Unit Number [id number] B LOOD BANK Product Blood Type 5100 BLOOD BANK Blood Type O+ BLOOD BANK Crossmatch Compatible BLOOD BANK Other Vinicius Love MD BLOOD BANK PRODUCT ORDERABLES Final Result Performing Organization Address City/State/[facility] Co de Phone Number BLOOD BANK [address] * PERIPHERAL IV (SMARTFORM LINK) (11/18/2024 [...] Hematocrit, Blood (11/18/2024 5:54 AM EDT) Pathologist [facility] HGB 6.9(L) 11.2 - 15.7 g/dL LAB HEMATOLOGY METHOD 11/18/2024 6:06 AM EDT [facility] HCT 21.3(L) 34.0 - 45.0 % LAB HEMATOLOGY METHOD 11/18/2024 6:06 AM EDT [facility] Blood Venous blood specimen / Unknown Venipuncture / Unknown 11/18/2024 5:54 AM EDT 11/18/2024 6:04 AM EDT us Vinicius Love MD LAB BLOOD ORDERABLES Final Re sult Performing Organization Address City/[facility] Co de Phone Number [facility] [address] [place] [address] * (ABNORMAL) Magnesium (11/18/2024 4:36 AM EDT) Magnesium, Plasma 1.6(L) 1.9 - 2.4 mg/dL 11/18/2024 5:20 AM EDT [facility] Blood Venous blood specimen / Unknown Venipuncture / Unknown 11/18/2024 4:36 AM EDT 11/18/2024 4:48 AM EDT us Vinicius Love MD LAB BLOOD ORDERABLES Final Re sult Performing Organization Address [facility] Co de Phone Number [facility] [address] [place] [address] * IONIZED CALCIUM, SERUM (11/18/2024 4:36 AM EDT) Ionized Calcium, Serum 4.6 4.6 - 5.3 mg/dL LAB HEMATOLOGY METHOD 11/18/2024 5:29 AM EDT [facility] Blood Venous blood specimen / Unknown Venipuncture / Unknown 11/18/2024 4:36 AM EDT 11/18/2024 4:48 AM EDT us Vinicius Love MD LAB BLOOD ORDERABLES Final Re sult Performing Organization Address [facility] Co de Phone Number [facility] [address] [place] [address] * (ABNORMAL) Comprehensive metabolic panel (11/18/2024 4:36 AM EDT) Glucose, Plasma 91 74 - 99 mg/dL 11/18/2024 5:20 AM EDT [facility] BUN, Plasma 10 7 - 21 mg/dL 11/18/2024 5:20 AM EDT [facility] Creatinine, Plasma 0.90 0.60 - 1.10 mg/dL 11/18/2024 5:20 AM EDT [facility] BUN/Creatinine Ratio 11 11/18/2024 5:20 AM EDT [facility] Sodium, Plasma 140 136 - 145 mmol/L 11/18/2024 5:20 AM EDT [facility] Potassium, Plasma 3.6 3.6 - 4.9 mmol/L 11/18/2024 5:20 AM EDT [facility] Chloride, Plasma 105 97 - 107 mmol/L 11/18/2024 5:20 AM EDT [facility] CO2, Plasma 22 22 - 29 mmol/L 11/18/2024 5:20 AM EDT [facility] Anion Gap 13 6 - 16 mmol/L 11/18/2024 5:20 AM EDT [facility] Total Calcium, Plasma 7.9(L) 8.9 - 10.2 mg/dL 11/18/2024 5:20 AM EDT [facility] Total Protein 5.8(L) 6.3 - 7.9 g/dL 11/18/2024 5:20 AM EDT [facility] Albumin, Plasma 2.6(L) 3.5 - 5.2 g/dL 11/18/2024 5:20 AM EDT [facility] AST, Plasma 23 10 - 35 U/L 11/18/2024 5:20 AM EDT [facility] ALT, Plasma 12 10 - 35 U/L 11/18/2024 5:20 AM EDT [facility] Alkaline Phosphatase, Plasma 263(H) 35 - 104 U/L 11/18/2024 5:20 AM EDT [facility] Total Bilirubin, Plasma 0.5 0.2 - 1.1 mg/dL 11/18/2024 5:20 AM EDT [facility] eGFRcr 80.0 mL/min/1.7 3m*2 11/18/2024 5:20 AM EDT [facility] Comment:Reported eGFRcr in m L/min/1.73m2 is based the CKD-EPI 2020 equation that does not use a race coefficient. Blood Venous blood specimen / Unknown Venipuncture / Unknown 11/18/2024 4:36 AM EDT 11/18/2024 4:48 AM EDT us Vinicius Love MD LAB BLOOD ORDERABLES Final Re sult [facility] [address] [place] [address] * (ABNORMAL) CBC W/O Differential (11/18/2024 4:36 AM EDT) WBC Count 9.43 3.70 - 10.30 10*3/uL LAB HEMATOLOGY METHOD 11/18/2024 4:51 AM EDT [facility] RBC Count 2.39(L) 3.90 - 5.20 10*6/uL LAB HEMATOLOGY METHOD 11/18/2024 4:51 AM EDT [facility] HGB 6.4(LL) 11.2 - 15.7 g/dL LAB HEMATOLOGY METHOD 11/18/2024 4:51 AM EDT [facility] HCT 19.8(L) 34.0 - 45.0 % LAB HEMATOLOGY METHOD 11/18/2024 4:51 AM EDT [facility] Platelet Count 220 155 - 369 10*3/uL LAB HEMATOLOGY METHOD 11/18/2024 4:51 AM EDT [facility] MCV 83 79 - 98 fL LAB HEMATOLOGY METHOD 11/18/2024 4:51 AM EDT [facility] MCH 26.8 26.0 - 32.0 pg LAB HEMATOLOGY METHOD 11/18/2024 4:51 AM EDT [facility] MCHC 32.3 30.7 - 35.5 g/dL LAB HEMATOLOGY METHOD 11/18/2024 4:51 AM EDT [facility] RDW 16.7(H) 11.5 - 14.5 % LAB HEMATOLOGY METHOD 11/18/2024 4:51 AM EDT [facility] MPV 9.3 8.8 - 12.5 fL LAB HEMATOLOGY METHOD 11/18/2024 4:51 AM EDT [facility] nRBC 0.0 <=0.0 per 100 WBCs LAB HEMATOLOGY METHOD 11/18/2024 4:51 AM EDT [facility] Blood Venous blood specimen / Unknown Venipuncture / Unknown 11/18/2024 4:36 AM EDT 11/18/2024 4:42 AM EDT us Vinicius Love MD LAB BLOOD ORDERABLES Final Re sult [facility] [address] [place] [address] * US Abdomen RUQ (11/17/2024 2:00 PM [...] - 35 sec 11/17/2024 1:44 PM EDT [facility] Blood Venous blood specimen / Unknown Venipuncture / Unknown 11/17/2024 1:25 PM EDT 11/17/2024 1:27 PM EDT us Kareem Guidry MD LAB BLOOD ORDERABLES Fin al Result [facility] [address] [place] [address] * (ABNORMAL) PT-INR (11/17/2024 1:25 PM EDT) Prothrombin Time 15.4(H) 12.0 - 14.3 sec 11/17/2024 1:43 PM EDT [facility] INR 1.2(H) 0.9 - 1.1 11/17/2024 1:43 PM EDT [facility] Blood Venous blood specimen / Unknown Venipuncture / Unknown 11/17/2024 1:25 PM EDT 11/17/2024 1:27 PM EDT Narrative [facility] - 11/17/2024 1:43 PM EDT OPTIMAL INR RANGES FOR PATIENT ON ORAL ANTICOAGULANT THERAPY Prevention of venous thromboembolism INR 2.0 to 3.0 In patients with heart disease: Atrial fibrillation INR 2.0 to 3.0 Valvular heart disease INR 2.0 to 3.0 Tissue heart valves INR 2.0 to 3.0 Mechanical prosthetic valves INR 2.5 to 3.5 Prevention of recurrent TN INR 2.5 to 3.5 Kareem Guidry MD LAB BLOOD ORDERABLES Fin al Result [facility] [address] [place] [address] * (ABNORMAL) Lipase (11/17/2024 1:25 PM EDT) Lipase, Plasma 14(L) 19 - 63 U/L 11/17/2024 1:50 PM EDT [facility] Blood Venous blood specimen / Unknown Venipuncture / Unknown 11/17/2024 1:25 PM EDT 11/17/2024 1:27 PM EDT Kareem Guidry MD LAB BLOOD ORDERABLES Fin al Result [facility] [address] [place] [address] * (ABNORMAL) CMP (11/17/2024 1:25 PM EDT) Glucose, Plasma 89 74 - 99 mg/dL 11/17/2024 1:50 PM EDT [facility] BUN, Plasma 10 7 - 21 mg/dL 11/17/2024 1:50 PM EDT [facility] Creatinine, Plasma 0.88 0.60 - 1.10 mg/dL 11/17/2024 1:50 PM EDT [facility] BUN/Creatinine Ratio 11 11/17/2024 1:50 PM EDT [facility] Sodium, Plasma 137 136 - 145 mmol/L 11/17/2024 1:50 PM EDT [facility] Potassium, Plasma 3.6 3.6 - 4.9 mmol/L 11/17/2024 1:50 PM EDT [facility] Chloride, Plasma 102 97 - 107 mmol/L 11/17/2024 1:50 PM EDT [facility] CO2, Plasma 20(L) 22 - 29 mmol/L 11/17/2024 1:50 PM EDT [facility] Anion Gap 15 6 - 16 mmol/L 11/17/2024 1:50 PM EDT [facility] Total Calcium, Plasma 9.0 8.9 - 10.2 mg/dL 11/17/2024 1:50 PM EDT [facility] Total Protein 7.5 6.3 - 7.9 g/dL 11/17/2024 1:50 PM EDT [facility] Albumin, Plasma 3.0(L) 3.5 - 5.2 g/dL 11/17/2024 1:50 PM EDT [facility] AST, Plasma 32 10 - 35 U/L 11/17/2024 1:50 PM EDT [facility] ALT, Plasma 18 10 - 35 U/L 11/17/2024 1:50 PM EDT [facility] Alkaline Phosphatase, Plasma 378(H) 35 - 104 U/L 11/17/2024 1:50 PM EDT [facility] Total Bilirubin, Plasma 0.7 0.2 - 1.1 mg/dL 11/17/2024 1:50 PM EDT [facility] eGFRcr 82.2 mL/min/1.7 3m*2 11/17/2024 1:50 PM EDT [facility] Comment:Reported eGFRcr in m L/min/1.73m2 is based the CKD-EPI 2020 equation that does not use a race coefficient. Blood Venous blood specimen / Unknown Venipuncture / Unknown 11/17/2024 1:25 PM EDT 11/17/2024 1:27 PM EDT us Kareem Guidry MD LAB BLOOD ORDERABLES Fin al Result [facility] [address] [place] [address] * (ABNORMAL) CBC w/diff (11/17/2024 1:25 PM EDT) WBC Count 12.34(H) 3.70 - 10.30 10*3/uL LAB HEMATOLOGY METHOD 11/17/2024 1:30 PM EDT [facility] RBC Count 3.19(L) 3.90 - 5.20 10*6/uL LAB HEMATOLOGY METHOD 11/17/2024 1:30 PM EDT [facility] HGB 8.4(L) 11.2 - 15.7 g/dL LAB HEMATOLOGY METHOD 11/17/2024 1:30 PM EDT [facility] HCT 27.1(L) 34.0 - 45.0 % LAB HEMATOLOGY METHOD 11/17/2024 1:30 PM EDT [facility] Platelet Count 308 155 - 369 10*3/uL LAB HEMATOLOGY METHOD 11/17/2024 1:30 PM EDT [facility] MCV 85 79 - 98 fL LAB HEMATOLOGY METHOD 11/17/2024 1:30 PM EDT [facility] MCH 26.3 26.0 - 32.0 pg LAB HEMATOLOGY METHOD 11/17/2024 1:30 PM EDT [facility] MCHC 31.0 30.7 - 35.5 g/dL LAB HEMATOLOGY METHOD 11/17/2024 1:30 PM EDT [facility] RDW 16.7(H) 11.5 - 14.5 % LAB HEMATOLOGY METHOD 11/17/2024 1:30 PM EDT [facility] MPV 9.6 8.8 - 12.5 fL LAB HEMATOLOGY METHOD 11/17/2024 1:30 PM EDT [facility] nRBC 0.0 <=0.0 per 100 WBCs LAB HEMATOLOGY METHOD 11/17/2024 1:30 PM EDT [facility] Differential Type Automated LAB HEMATOLOGY METHOD 11/17/2024 1:30 PM EDT [facility] Neutrophils % 80 % LAB HEMATOLOGY METHOD 11/17/2024 1:30 PM EDT [facility] Lymphocytes % 11 % LAB HEMATOLOGY METHOD 11/17/2024 1:30 PM EDT [facility] Monocytes % 5 % LAB HEMATOLOGY METHOD 11/17/2024 1:30 PM EDT [facility] Eosinophils % 1 % LAB HEMATOLOGY METHOD 11/17/2024 1:30 PM EDT [facility] Basophils % 1 % LAB HEMATOLOGY METHOD 11/17/2024 1:30 PM EDT [facility] Immature Granulocytes % 2 % LAB HEMATOLOGY METHOD 11/17/2024 1:30 PM EDT [facility] Neutrophils Absolute 10.04(H) 1.60 - 6.10 10*3/uL LAB HEMATOLOGY METHOD 11/17/2024 1:30 PM EDT [facility] Lymphocytes Absolute 1.31 1.20 - 3.90 10*3/uL LAB HEMATOLOGY METHOD 11/17/2024 1:30 PM EDT [facility] Monocytes Absolute 0.62 0.30 - 0.90 10*3/uL LAB HEMATOLOGY METHOD 11/17/2024 1:30 PM EDT [facility] Eosinophils Absolute 0.08 0.00 - 0.50 10*3/uL LAB HEMATOLOGY METHOD 11/17/2024 1:30 PM EDT [facility] Basophils Absolute 0.06 0.00 - 0.10 10*3/uL LAB HEMATOLOGY METHOD 11/17/2024 1:30 PM EDT [facility] Immature Granulocytes Absolute 0.23(H) 0.00 - 0.06 10*3/uL LAB HEMATOLOGY METHOD 11/17/2024 1:30 PM EDT [facility] Blood Venous blood specimen / Unknown Venipuncture / Unknown 11/17/2024 1:25 PM EDT 11/17/2024 1:27 PM EDT [facility] - 11/17/2024 1:30 PM EDT Therapeutic decision making should be based on absolute values, rather than percentages. us Kareem Guidry MD LAB BLOOD ORDERABLES Fin al Result [facility] [address] [place] [address] documented in this encounter Visit Diagnoses Diagnosis [...] documented as of this encounter Care Teams Care Professional Relationship Specialty Start Date End Date Pcp, No [address] [place] [address] PCP - General Family Medicine 06/16/23 documented as of this encounter
--- OUTSIDE RECORDS SUMMARY | 2024-12-04 09:00 | XMS_ITS | Encounter Summary ---
Author Organization [facility] Address [address] [place] [address] Care Team Providers Care Painting Trades Worker Name Role Phone Pcp, No Primary Care Provider Unavailabl e Reason for Referral * Imaging (Routine) - Pending Review Specialty Diagnoses / Procedures Referred By Contac t Referred To Contact Radiology Diagnoses Endometrial cancer Procedures CT Abdomen Pelvis w IV Contrast Karol Jane MD [address] [address] Phone: tel: fax: Referral ID Status Reason Start Date Expiration Date V isits Requested Visits Authorized [id number] Pending Review 12/04/2024 06/05/2026 1 1 * Imaging (Routine) - Pending Review Specialty Diagnoses / Procedures Referred By Contac t Referred To Contact Radiology Diagnoses Endometrial cancer Procedures CT Chest w IV Contrast Karol Jane MD [address] [address] Phone: tel: fax: Referral ID Status Reason Start Date Expiration Date V isits Requested Visits Authorized [id number] Pending Review 12/04/2024 06/05/2026 1 1 Reason for Visit * Reason Comments Consult Encounter Details Date Type Department Care Team (Late st Contact Info) Description 12/04/2024 10:00 AM EDT Office Visit [facility] [address] [place] [address] Karol Jane MD [address] [place] [address] Endometrial cancer (CMS/HCC) (Primary Dx) Social History [...] any time in the past 12 m [facility], were you homeless or living in a correction (including now)? 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 Car Hop Cancer Treatment History: 1. Presented to ED [...] is recommended. 4. Final path reviewed at [facility], Dr. Garcia - As you know from [...] an appointment scheduled with Dr. Veloz in [place] on 12/09. Would like to have her [...] detailed below. Additionally, she denies history of [place], DVT, stroke. Employer: No address on file. [...] an appointment scheduled with Dr. Veloz in [place] on 12/09. He will initiate therapy. - [...] documentation. Encounter time 60 min [facility] 800 [facility] [address] [facility] [address] Dept Loc: [phone] [1] Past Medical History: Diagnosis Date Disease of salivary gland, unspecified Parotid mass Endometrial cancer (CMS/HCC) [2] Past Surgical History: Procedure Laterality Date HYSTERECTOMY N/A Hysterectomy from [facility] TUBAL LIGATION N/A Tubal ligation from [facility] [3] Family History Problem Relation Name [...] EST Appointment [facility] [address] [place] [address] 03/19/2025 1:45 PM EST Office Visit [facility] [address] [place] [address] Karol Jane MD [address] [place] [address] Scheduled Orders Name Type Priority Associated Diagnoses [...] documented as of this encounter Care Teams Painting Trades Worker Relationship Specialty Start Date End Date Pcp, Saloni [address] [place] [address] PCP - General Family Medicine 06/16/23 documented as of this encounter
[2025-01-13] VITALS (9 sets, daily range): BP systolic 116–144; BP diastolic 59–81; PULSE 63–78; RESP 18–21; TEMP 36.6; O2SAT 98–100
--- OUTSIDE RECORDS SUMMARY | 2025-01-13 08:47 | XMS_ITS | Encounter Summary ---
Author Organization [facility] Address [address] [place] [address] Care Team Providers Care Carpet Measurer Name Role Phone Pcp, No Primary Care [...] any time in the past 12 m [facility], were you homeless or living in a intermediate (including now)? 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[employer]) to steady your nerves or to get [...] EST Appointment [facility] [address] [place] [id number] 03/19/2025 1:45 PM EST Office Visit [facility] [address] [place] [address] Karol Jane MD [address] [place] [address] documented as of this encounter Visit Diagnoses Not on filedocumented in this encounter Additional Health Concerns Assessment Noted Time A Body Mass Index follow-up plan has been documented for the patient 11/21/2024 8:58 AM EDT documented as of this encounter Care Teams Carpet Measurer Relationship Specialty Start Date End Date Pcp, No [address] [place] [address] PCP - General Family Medicine 06/16/23 documented as of this encounter
--- OUTSIDE RECORDS SUMMARY | 2025-01-13 08:47 | XMS_ITS | Clinical Summary ---
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 Metastasis to liver 11/10/2024 Metastasis [...] EDT Office Visit [facility] Gynecology [address] [facility] [address] [place] [address] Karol Jane MD Endometrial cancer (CMS/HCC) (Primary Dx) 12/04/2024 Travel 11/29/2024 Travel 11/19/2024 Travel 11/18/2024 Travel 11/17/2024 1:26 PM EDT - 11/21/2024 10:43 AM EDT Hospital Encounter [facility] Inpatient [facility] [address] [place] [address] Elisabeth Hernandez MD Miller, Rachel W, MD RUQ abdominal pain (Primary Dx); Endometrial cancer (CMS/HCC); Metastasis to liver (CMS/HCC); 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) Discharge Disposition: Home or Self Care 11/17/2024 Travel 11/14/2024 Travel 11/11/2024 Travel 11/09/2024 Travel 11/08/2024 11:13 AM EDT - 11/14/2024 8:50 PM EDT Hospital Encounter [facility] Inpatient [address] [place] [address] Blaire Fuchs MD Houck, Jessica L, DO Tucker, Brian K, Morelia Irene MD Dietrich, Charles S, MD Miller, Rachel W, MD Metastasis to liver (CMS/HCC) (Primary Dx); Calculus of gallbladder without cholecystitis without obstruction Discharge Disposition: Home or Self Care 11/08/2024 Orders Only External Location [address] [place] [address] Provider, External 11/08/2024 Orders Only External Location [address] [place] [address] Provider, External 11/08/2024 Travel from Last 3 [...] in the past 12 m [facility], were you homeless or living in a longterm (including now)? No 11/18/2024 [facility] Utilities Answer Date Recorded In the [...] drink first t nicolas in the morning (EYE-BAIT MAN) to steady your nerves or to get [...] EST Appointment [facility] Radiology [address] [place] [address] 03/19/2025 1:45 PM EST Office Visit [facility] Gynecology [address] [place] [address] Karol Jane MD [address] [place] [address] Health Maintenance Due Date Last Done Comments [facility]-/Child/Adol SDOH Screenings 1980 [id number] Vaccine (#1) 1983 [facility]-DTaP,Tdap,and Td Vaccine s [...] this topic Medical Devices Implanted Type Area Prepress Stripper Device Identifier Shelf Expiration Date Model / Serial / Lot Vip Vascular Closure Device 6 Fr - [id number] Implanted:Qty: 1 on 11/18/2024 by [id number] 07/29/2025 [id number] / / [id number] Procedures Procedure Name Priority Date/Time Associated Diagnosis [...] BIOPSY Routine 11/18/2024 2:55 PM EDT CRISTOBAL NM TUMOR SEEK HYBRID + IHCS AND OTHER [...] LAB HEMATOLOGY METHOD 11/21/2024 3:53 AM EDT [facility] Blood Venous blood specimen / Unknown Venipuncture / Unknown 11/21/2024 3:19 AM EDT 11/21/2024 3:27 AM EDT Karol Jane MD LAB BLOOD ORDERABLES Final Re sult [facility] [address] [place] [address] * (ABNORMAL) CBC W/O Differential (11/21/2024 3:19 AM EDT) Only the most recent of10 resultswithin the time period is included. WBC Count 12.55(H) 3.70 - 10.30 10*3/uL LAB HEMATOLOGY METHOD 11/21/2024 3:35 AM EDT [facility] RBC Count 2.70(L) 3.90 - 5.20 10*6/uL LAB HEMATOLOGY METHOD 11/21/2024 3:35 AM EDT [facility] HGB 7.3(L) 11.2 - 15.7 g/dL LAB HEMATOLOGY METHOD 11/21/2024 3:35 AM EDT [facility] HCT 22.1(L) 34.0 - 45.0 % LAB HEMATOLOGY METHOD 11/21/2024 3:35 AM EDT [facility] Platelet Count 236 155 - 369 10*3/uL LAB HEMATOLOGY METHOD 11/21/2024 3:35 AM EDT [facility] MCV 82 79 - 98 fL LAB HEMATOLOGY METHOD 11/21/2024 3:35 AM EDT [facility] MCH 27.0 26.0 - 32.0 pg LAB HEMATOLOGY METHOD 11/21/2024 3:35 AM EDT [facility] MCHC 33.0 30.7 - 35.5 g/dL LAB HEMATOLOGY METHOD 11/21/2024 3:35 AM EDT [facility] RDW 16.0(H) 11.5 - 14.5 % LAB HEMATOLOGY METHOD 11/21/2024 3:35 AM EDT [facility] MPV 9.7 8.8 - 12.5 fL LAB HEMATOLOGY METHOD 11/21/2024 3:35 AM EDT [facility] nRBC 0.0 <=0.0 per 100 WBCs LAB HEMATOLOGY METHOD 11/21/2024 3:35 AM EDT [facility] Blood Venous blood specimen / Unknown Venipuncture / Unknown 11/21/2024 3:19 AM EDT 11/21/2024 3:28 AM EDT Karol Jane MD LAB BLOOD ORDERABLES Final Re sult Performing Organization Address City/[facility] Co de Phone Number [facility] [address] [place] [address] * Phosphorus, Plasma (11/21/2024 3:19 AM EDT) Only the most recent of7 resultswithin the time period is included. Phosphorus, Plasma 3.1 2.5 - 4.5 mg/dL 11/21/2024 5:27 AM EDT [facility] Blood Venous blood specimen / Unknown Venipuncture / Unknown 11/21/2024 3:19 AM EDT 11/21/2024 3:27 AM EDT us Karol Jane MD LAB BLOOD ORDERABLES Final Re sult Performing Organization Address City/[facility] Co de Phone Number [facility] [address] [place] [address] * (ABNORMAL) Magnesium (11/21/2024 3:19 AM EDT) Only the most recent of10 resultswithin the time period is included. Magnesium, Plasma 1.6(L) 1.9 - 2.4 mg/dL 11/21/2024 3:58 AM EDT [facility] Blood Venous blood specimen / Unknown Venipuncture / Unknown 11/21/2024 3:19 AM EDT 11/21/2024 3:27 AM EDT us Karol Jane MD LAB BLOOD ORDERABLES Final Re sult [facility] [address] [place] [address] * (ABNORMAL) Comprehensive metabolic panel (11/21/2024 3:19 AM EDT) Only the most recent of9 resultswithin the time period is included. Glucose, Plasma 116(H) 74 - 99 mg/dL 11/21/2024 3:58 AM EDT [facility] BUN, Plasma 11 7 - 21 mg/dL 11/21/2024 3:58 AM EDT [facility] Creatinine, Plasma 0.77 0.60 - 1.10 mg/dL 11/21/2024 3:58 AM EDT [facility] BUN/Creatinine Ratio 14 11/21/2024 3:58 AM EDT [facility] Sodium, Plasma 137 136 - 145 mmol/L 11/21/2024 3:58 AM EDT [facility] Potassium, Plasma 3.4(L) 3.6 - 4.9 mmol/L 11/21/2024 3:58 AM EDT [facility] Chloride, Plasma 103 97 - 107 mmol/L 11/21/2024 3:58 AM EDT [facility] CO2, Plasma 21(L) 22 - 29 mmol/L 11/21/2024 3:58 AM EDT [facility] Anion Gap 13 6 - 16 mmol/L 11/21/2024 3:58 AM EDT [facility] Total Calcium, Plasma 7.9(L) 8.9 - 10.2 mg/dL 11/21/2024 3:58 AM EDT [facility] Total Protein 5.7(L) 6.3 - 7.9 g/dL 11/21/2024 3:58 AM EDT [facility] Albumin, Plasma 2.4(L) 3.5 - 5.2 g/dL 11/21/2024 3:58 AM EDT [facility] AST, Plasma 188(H) 10 - 35 U/L 11/21/2024 3:58 AM EDT [facility] ALT, Plasma 167(H) 10 - 35 U/L 11/21/2024 3:58 AM EDT [facility] Alkaline Phosphatase, Plasma 505(H) 35 - 104 U/L 11/21/2024 3:58 AM EDT [facility] Total Bilirubin, Plasma 1.0 0.2 - 1.1 mg/dL 11/21/2024 3:58 AM EDT [facility] eGFRcr 96.5 mL/min/1.7 3m*2 11/21/2024 3:58 AM EDT [facility] Comment:Reported eGFRcr in m L/min/1.73m2 is based the CKD-EPI 2020 equation that does not use a race coefficient. Blood Venous blood specimen / Unknown Venipuncture / Unknown 11/21/2024 3:19 AM EDT 11/21/2024 3:27 AM EDT Karol Jane MD LAB BLOOD ORDERABLES Final Re sult Performing Organization Address City/[facility] Co de Phone Number [facility] [address] [place] [address] * Prepare Leukocyte Reduced RBC: 1 Units (11/20/2024 5:27 AM EDT) Only the most recent of3 resultswithin the time period is included. 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 At 58 [...] PM EDT) Case Report Surgical Pathology Case: [id number] Authorizing Provider: Franko Nava MD Collected: 11/18/2024 4747 Ordering Location: [facility] Emergency Department Received: 11/18/2024 1620 Pathologist: Geovanny Gomes DO Specimen: Liver 5:03 PM EDT [facility] Final Diagnosis LIVER, BIOPSY: - POSITIVE FOR METASTATIC CARCINOMA (SEE COMMENT). 5:03 PM EDT [facility] at 1703 EDT Comment [...] high grade endometrioid adenocarcinoma. 5:03 PM EDT [facility] Clinical Information mets to the liver 5:03 PM EDT [facility] Special and Immunohistochemical Stains IHC: A1-2 CK7: Positive in tumor cells. A1-3 PAX8: Positive in tumor cells. A1-4 ER Non-Quantitative: Positive in tumor cells. All controls show appropriate reactivity. All immunohistochemist ry, in situ hybridization, and histochemical tests were developed by and are performed at the [facility], [address] [place] [address]. All tests reported here, except those addressing [...] negativity on decalcified specimens. 5:03 PM EDT [facility] Gross Description A. LIVER Received in formalin labeled l iver , are multiple red-rosales soft tissue cores measuring from 0.3 cm to 1.5 cm in length and up to 0.1 cm in diameter. Entirely submitted in cassette A1. Cold Time: 0 Ro Mcallister 5:03 PM EDT [facility] Intradepartmental Consultation with Agreement Dr. Fuentes 5:03 PM EDT [facility] Note: A resident was involved in the service. I attest I examined the relevant preparations for the specimens and confirmed the diagnosis or interpretation. 5:03 PM EDT [facility] Tissue Liver structure / Unknown Non-blood Collection / Unknown 11/18/2024 3:57 PM EDT 11/18/2024 4:20 PM EDT us Franko Nava MD LAB PATHOLOGY [place] [address] * IR Embolization Tumor or Ischemia or [...] concern for intratumoral hemorrhage. Patient presents to [facility] for bland embolization of tumor. Additionally, rebiopsy of liver mass is planned due to possible progression. TECHNIQUE: Animal Care Provider: Franko Nava MD Secondary Ms Access Database Developer: Luis Miguel Estes M.D. Rad Dose: [id number] [...] 5 F vascular sheath. Using a 5 Maltese contra 2 catheter, the celiac axis was [...] concern for intratumoral hemorrhage. Patient presents to [facility] embolization of tumor. Additionally, rebiopsy of liver mass isplanned due to possible progression. TECHNIQUE: Animal Care Provider: Franko Nava MD Secondary Ms Access Database Developer: Luis Miguel Estes M.D. Rad Dose: [id number] [...] 5 F vascular sheath. Using a 5 Maltese contra 2catheter, the celiac axis was catheterized. [...] concern for intratumoral hemorrhage. Patient presents to [facility] for bland embolization of tumor. Additionally, rebiopsy of liver mass is planned due to possible progression. TECHNIQUE: Animal Care Provider: Franko Nava MD Secondary Ms Access Database Developer: Luis Miguel Estes M.D. Rad Dose: [id number] [...] 5 F vascular sheath. Using a 5 Maltese contra 2 catheter, the celiac axis was [...] concern for intratumoral hemorrhage. Patient presents to [facility] embolization of tumor. Additionally, rebiopsy of liver mass isplanned due to possible progression. TECHNIQUE: Animal Care Provider: Franko Nava MD Secondary Ms Access Database Developer: Luis Miguel Estes M.D. Rad Dose: [id number] [...] 5 F vascular sheath. Using a 5 Maltese contra 2catheter, the celiac axis was catheterized. [...] PROCEDURES Final Resu lt * (ABNORMAL) Caris NM Cancer Seek Hybrid??? + IHCs and Other Tests by Tumor Type (11/18/2024 2:55 PM EDT) CARIS PD-L1 (22C3) Negative 2024 1:58 PM EDT [facility] [employer] CARIS Mismatch Repair Status Proficient (Intact) 11/30/2024 1:58 PM EDT CARAdvestigo CARIS Genomic Loss of Heterozygosity - [place] Low 1% 11/30/2024 1:58 PM EDT CARIS [employer] CARIS Microsatellite Instability - [place] Stable 11/30/2024 1:58 PM EDT [facility] [employer] CARIS Tumor Mutational [place] - [place] Low 1 per Mb 11/30/2024 1:58 PM EDT CARIS LTG Exam Prep Platform SCIENCES CARIS Estrogen Receptor Positive 11/30/2024 1:58 PM EDT [facility] [employer] CARIS Her2/Shoaib Negative 11/30/2024 1:58 PM EDT [employer] [employer] CARIS Progesterone Receptor Negative 11/30/2024 1:58 PM EDT CARViolet Grey [employer] CARIS MLH1 Intact nuclear expression 11/30/2024 1:58 PM EDT CARIS LTG Exam Prep Platform [employer] CARIS MSH2 Intact nuclear expression 11/30/2024 1:58 PM EDT [facility] CRISTOBAL MSH6 Intact nuclear expression 11/30/2024 1:58 PM EDT [facility] CRISTOBAL PMS2 Intact nuclear expression 11/30/2024 1:58 PM EDT [facility] CRISTOBAL HLA-A - [place] -,A*02:01 11/30/2024 1:58 PM EDT [facility] CRISTOBAL HLA-B - [place] B*40:01,B*44: 02 11/30/2024 1:58 PM EDT [facility] CRISTOBAL HLA-C - [place] C*03:04,C*05: 01 11/30/2024 1:58 PM EDT [facility] Tissue Non-blood Collection / Unknown 11/18/2024 2:55 PM EDT 11/21/2024 1:03 PM EDT Narrative This result has genomic variants that were not included in this document. us Karol Jane MD LAB MOL DX NO SOURCE Final Re sult [facility] [address] [address], [place] [phone] * Fine needle aspiration - Core Biopsy (11/18/2024 2:55 PM EDT) Case Report Cytology Case: [id number] Authorizing Provider: Franko Nava MD Collected: 11/18/2024 1455 Ordering Location: [facility] A Emergency Department Received: 11/18/2024 1520 Specimen: Liver, LIVER, CT GUIDED CORE BIOPSY 3:41 PM EDT [facility] Final Diagnosis A. LIVER, CT GUIDED CORE BIOPSY: - POSITIVE FOR MALIGNANCY, METASTATIC CARCINOMA CONSISTENT WITH PREVIOUSLY DIAGNOSED ENDOMETRIAL CARCINOMA, SEE COMMENT 3:41 PM EDT [facility] at 1541 EDT Comment History [...] not identical to the previous surgical specimen ([id number]), the staining pattern noted below is identical to the previous tumor. 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 Material is present in the cell block for ancillary testing as clinically indicated. 3:41 PM EDT [facility] Special and Immunohistochemical Stains IHC: A1-1 CK-AE1/AE3 Positive A1-2 PAX8 Positive A1-3 ER Non-Quantitative Positive, moderate intensity in the majority of the cells A1-4 AK Non-Quantitative Rare positive cells, weak intensity A1-5 Androgen Receptor Positive, variable All controls show appropriate reactivity. All immunohistochemis try, in situ hybridization, and histochemical tests were developed by and are performed at the [facility], [address] [place] [address]. All tests reported here, except those addressing [...] on decalcified specimens. 5 3:41 PM EDT [facility] Intradepartmental Consultation with Agreement Dr. Fuentes 3:41 PM EDT [facility] Immediate Evaluation Core biopsy performed by: Dr. Nava Number of sticks: 5 This service has been rendered in part by a resident. A pathologist has personally reviewed the slides/tissue and has rendered and is responsible for diagnosis for the diagnosis that appears on the report. 5 3:41 PM EDT [facility] Clinical History metastesis to liver 5 3:41 PM EDT [facility] Procedure Type US 5 3:41 PM EDT [facility] Size/Description of Lesion liver tumor 5 3:41 PM EDT [facility] Cancer History Yes 5 3:41 PM EDT [facility] Gross Description A. LIVER, [...] Cold Time: 13m 5 3:41 PM EDT [facility] Note: A resident was involved in the service. I attest I examined the relevant preparations for the specimens and confirmed the diagnosis or interpretation. 5 3:41 PM EDT [facility] Clinical Information No Dx found. 5 3:41 PM EDT [facility] Fine Needle Aspirate Liver structure / Unknown Non-blood Collection / Unknown 11/18/2024 2:55 PM EDT 11/18/2024 3:20 PM EDT us Franko Nava MD LAB CYTOLOGY ORDERABLES Sonali barahona Result [facility] [address] [place] [address] * Type and screen (11/18/2024 9:33 AM [...] ORDERABLE S Final Result BLOOD BANK [address] [place] [address], * PERIPHERAL IV (SMARTFORM LINK) (11/18/2024 7:57 [...] LAB HEMATOLOGY METHOD 11/18/2024 6:06 AM EDT [facility] HCT 21.3(L) 34.0 - 45.0 % LAB HEMATOLOGY METHOD 11/18/2024 6:06 AM EDT [facility] Blood Venous blood specimen / Unknown Venipuncture / Unknown 11/18/2024 5:54 AM EDT 11/18/2024 6:04 AM EDT Karol Jane MD LAB BLOOD ORDERABLES Final Re sult [facility] [address] [place] [address] * US Abdomen RUQ (11/17/2024 2:00 PM [...] - 35 sec 11/17/2024 1:44 PM EDT [facility] Blood Venous blood specimen / Unknown Venipuncture / Unknown 11/17/2024 1:25 PM EDT 11/17/2024 1:27 PM EDT Kareem Guidry MD LAB BLOOD ORDERABLES Fin al Result [facility] [address] [place] [address] * (ABNORMAL) PT-INR (11/17/2024 1:25 PM EDT) Only the most recent of3 resultswithin the time period is included. Pathologist [facility] Prothrombin Time 15.4(H) 12.0 - 14.3 sec 11/17/2024 1:43 PM EDT [facility] INR 1.2(H) 0.9 - 1.1 11/17/2024 1:43 PM EDT [facility] Blood Venous blood specimen / Unknown Venipuncture / Unknown 11/17/2024 1:25 PM EDT 11/17/2024 1:27 PM EDT Narrative [facility] - 11/17/2024 1:43 PM EDT OPTIMAL INR RANGES FOR PATIENT ON ORAL ANTICOAGULANT THERAPY Prevention of venous thromboembolism INR 2.0 to 3.0 In patients with heart disease: Atrial fibrillation INR 2.0 to 3.0 Valvular heart disease INR 2.0 to 3.0 Tissue heart valves INR 2.0 to 3.0 Mechanical prosthetic valves INR 2.5 to 3.5 Prevention of recurrent NM INR 2.5 to 3.5 us Kareem Guidry MD LAB BLOOD ORDERABLES [facility] al Result [facility] [address] [place] [address] * (ABNORMAL) CBC w/diff (11/17/2024 1:25 PM EDT) Only the most recent of3 resultswithin the time period is included. Pathologist [facility] WBC Count 12.34(H) 3.70 - 10.30 10*3/uL LAB HEMATOLOGY METHOD 11/17/2024 1:30 PM EDT [facility] RBC Count 3.19(L) 3.90 - 5.20 10*6/uL LAB HEMATOLOGY METHOD 11/17/2024 1:30 PM EDT [facility] HGB 8.4(L) 11.2 - 15.7 g/dL LAB HEMATOLOGY METHOD 11/17/2024 1:30 PM EDT [facility] HCT 27.1(L) 34.0 - 45.0 % LAB HEMATOLOGY METHOD 11/17/2024 1:30 PM EDT [facility] Platelet Count 308 155 - 369 10*3/uL LAB HEMATOLOGY METHOD 11/17/2024 1:30 PM EDT [facility] MCV 85 79 - 98 fL LAB HEMATOLOGY METHOD 11/17/2024 1:30 PM EDT [facility] MCH 26.3 26.0 - 32.0 pg LAB HEMATOLOGY METHOD 11/17/2024 1:30 PM EDT [facility] MCHC 31.0 30.7 - 35.5 g/dL LAB HEMATOLOGY METHOD 11/17/2024 1:30 PM EDT [facility] RDW 16.7(H) 11.5 - 14.5 % LAB HEMATOLOGY METHOD 11/17/2024 1:30 PM EDT [facility] MPV 9.6 8.8 - 12.5 fL LAB HEMATOLOGY METHOD 11/17/2024 1:30 PM EDT [facility] nRBC 0.0 <=0.0 per 100 WBCs LAB HEMATOLOGY METHOD 11/17/2024 1:30 PM EDT [facility] Differential Type Automated LAB HEMATOLOGY METHOD 11/17/2024 1:30 PM EDT [facility] Neutrophils % 80 % LAB HEMATOLOGY METHOD 11/17/2024 1:30 PM EDT [facility] Lymphocytes % 11 % LAB HEMATOLOGY METHOD 11/17/2024 1:30 PM EDT [facility] Monocytes % 5 % LAB HEMATOLOGY METHOD 11/17/2024 1:30 PM EDT [facility] Eosinophils % 1 % LAB HEMATOLOGY METHOD 11/17/2024 1:30 PM EDT [facility] Basophils % 1 % LAB HEMATOLOGY METHOD 11/17/2024 1:30 PM EDT [facility] Immature Granulocytes % 2 % LAB HEMATOLOGY METHOD 11/17/2024 1:30 PM EDT [facility] Neutrophils Absolute 10.04(H) 1.60 - 6.10 10*3/uL LAB HEMATOLOGY METHOD 11/17/2024 1:30 PM EDT [facility] Lymphocytes Absolute 1.31 1.20 - 3.90 10*3/uL LAB HEMATOLOGY METHOD 11/17/2024 1:30 PM EDT [facility] Monocytes Absolute 0.62 0.30 - 0.90 10*3/uL LAB HEMATOLOGY METHOD 11/17/2024 1:30 PM EDT [facility] Eosinophils Absolute 0.08 0.00 - 0.50 10*3/uL LAB HEMATOLOGY METHOD 11/17/2024 1:30 PM EDT [facility] Basophils Absolute 0.06 0.00 - 0.10 10*3/uL LAB HEMATOLOGY METHOD 11/17/2024 1:30 PM EDT [facility] Immature Granulocytes Absolute 0.23(H) 0.00 - 0.06 10*3/uL LAB HEMATOLOGY METHOD 11/17/2024 1:30 PM EDT [facility] Blood Venous blood specimen / Unknown Venipuncture / Unknown 11/17/2024 1:25 PM EDT 11/17/2024 1:27 PM EDT Narrative [facility] - 11/17/2024 1:30 PM EDT Therapeutic decision making should be based on absolute values, rather than percentages. Kareem Guidry MD LAB BLOOD ORDERABLES Fin al Result Performing Organization Address City/[facility] Co de Phone Number [facility] [address] [place] [address] * (ABNORMAL) Lipase (11/17/2024 1:25 PM EDT) Lipase, Plasma 14(L) 19 - 63 U/L 11/17/2024 1:50 PM EDT [facility] Blood Venous blood specimen / Unknown Venipuncture / Unknown 11/17/2024 1:25 PM EDT 11/17/2024 1:27 PM EDT Kareem Guidry MD LAB BLOOD ORDERABLES Fin al Result Performing Organization Address City/[facility]/ZIP Co de Phone Number [facility] [address] [place] [address] * (ABNORMAL) Ionized calcium, whole blood (11/14/2024 [...] BLOOD ORDERABLES Final Result Performing Organization Address [facility] Co de Phone Number [facility] [address] [place] [address] * (ABNORMAL) Fibrinogen (11/14/2024 1:07 AM EDT) Pathologist [facility] Fibrinogen, Quantitative (Clottable) 512(H) 208 - 459 mg/dL LAB COAGULATION METHOD 11/14/2024 2:09 AM EDT [facility] Blood Venous blood specimen / Unknown Venipuncture / Unknown 11/14/2024 1:07 AM EDT 11/14/2024 1:48 AM EDT Karol Jane MD LAB BLOOD ORDERABLES Final Re sult Performing Organization Address [facility] Co de Phone Number [facility] [address] [place] [address] * (ABNORMAL) Basic metabolic panel (11/14/2024 1:07 AM EDT) Only the most recent of5 resultswithin the time period is included. [facility] Glucose, Plasma 85 74 - 99 mg/dL [...] Final Result [facility] [address] [place] [address] * Comprehensive GI Panel by PCR (11/11/2024 [...] 8:01 PM EDT 11/11/2024 8:13 PM EDT [facility] - 11/12/2024 5:52 [...] GENERAL ORDERABLES Final Result Performing Organization Address [facility] Co de Phone Number [address] [address] * Clostridiodes (Clostridium) difficile PCR (11/11/2024 8:01 PM EDT) C difficile PCR toxin B gene DNA Result Not Detected Not Detected 11/11/2024 9:22 PM EDT [facility] Stool Rectum structure / Unknown Non-blood [...] GENERAL ORDERABLES Final Result Performing Organization Address [facility] Co de Phone Number [address] [address] * CT Chest wo IV Contrast (11/11/2024 [...] URINE ORDERABLES Final Result Performing Organization Address City/[facility]/ZIP Co de Phone Number [facility] [address] [place] [address] * Creatinine, urine, random (11/11/2024 3:34 AM EDT) Creatinine, Urine 105 mg/dL 11/11/2024 4:13 AM EDT [facility] Urine Urine specimen obtained by clean catch procedure / Unknown Non-blood Collection / Unknown 11/11/2024 3:34 AM EDT 11/11/2024 3:43 AM EDT Morelia Galvez MD LAB URINE ORDERABLES Final Result [facility] [address] [place] [address] * CT Abdomen Pelvis w IV Contrast [...] - 99 mg/dL 11/09/2024 7:13 AM EDT [facility] Comment:Accuracy of a glucos e result [...] for testing. Comment 11/09/2024 7:13 AM EDT [facility] Ms Access Database Developer ID Justine Singh 11/09/2024 7:13 AM EDT [facility] Device ID [id number] 11/09/2024 7:13 AM EDT [facility] Specimen Type POC Capillary 11/09/2024 7:13 AM EDT [facility] Blood Capillary blood specimen / Unknown 11/09/2024 7:12 AM EDT 11/09/2024 7:13 AM EDT us Morelia Galvez MD LAB POINT OF CARE TEST DOCKED DEVICE UNSOLICITED RESULTS Final Result Performing Organization Address [facility] de Phone Number [facility] [address] [place] [address] * (ABNORMAL) Troponin T, High Sensitivity, 2 [...] ORDERABLES Final R esult Performing Organization Address City/[facility] Co de Phone Number [facility] [address] [place] [address] * Heparin level (11/08/2024 1:57 PM EDT) Anti Xa Level Unfractionated Heparin <0.11 <1.00 IU/mL LAB COAGULATION METHOD 11/08/2024 2:26 PM EDT [facility] Blood Venous blood specimen / Unknown Venipuncture / Unknown 11/08/2024 1:57 PM EDT 11/08/2024 2:07 PM EDT Narrative [facility] - 11/08/2024 2:26 PM EDT Therapeutic Range: UFH Full Dose and ACS/NM protocols*: 0.30 - 0.70 IU/mL UFH Low Dose protocol*: 0.25 - 0.50 IU/mL UFH prophylaxis: Not established us Blaire Fuchs MD LAB BLOOD ORDERABLES Final R esult [facility] [address] [place] [address] * US Abdomen Focused Region GB, Bile [...] 1/2 Differentiation (11/08/2024 1:12 PM EDT) Pathologist [facility] HIV 1 & 2 Antibody/Antigen Screen Non [...] ORDERABLES Final R esult Performing Organization Address City/[facility]/ZIP Co de Phone Number [facility] [address] [place] [address] * (ABNORMAL) Troponin now and 120 min (11/08/2024 1:12 PM EDT) [facility] Troponin T, High Sensitivity, 0 Hour 14(H) <14 ng/L 11/08/2024 1:55 PM EDT [facility] Blood Venous blood specimen / Unknown Venipuncture / Unknown 11/08/2024 1:12 PM EDT 11/08/2024 1:25 PM EDT us Blaire Fuchs MD LAB BLOOD ORDERABLES Final R esult [facility] [address] [place] [address] * (ABNORMAL) BNP (11/08/2024 1:12 PM EDT) [facility] N-Terminal, PROBNP, Plasma 523(H) 0 - 449 pg/mL 11/08/2024 1:55 PM EDT [facility] Blood Venous blood specimen / Unknown Venipuncture / Unknown 11/08/2024 1:12 PM EDT 11/08/2024 1:25 PM EDT us Blaire Fuchs MD LAB BLOOD ORDERABLES Final R esult [facility] [address] [place] [address] * EKG now - STAT (adult) (11/08/2024 11:25 AM EDT) Pathologist [facility] EKG DIAGNOSIS CLASS Borderline Abnormal MUSE ECG Ventricular Rate 94 BPM MUSE ECG Atrial Rate 94 BPM MUSE ECG AK Interval 128 ms MUSE ECG QRSD Interval 100 ms MUSE ECG QT Interval 364 ms MUSE ECG QTC Interval 455 ms MUSE ECG P [place] 65 degrees MUSE ECG R [place] 11 degrees MUSE ECG T Wave [place] 8 degrees MUSE ECG Diagnosis Normal sinus rhythm MUSE ECG Diagnosis RSR' V1, is likely a normal variant MUSE ECG Diagnosis Borderline ECG MUSE ECG Diagnosis MUSE ECG Diagnosis Confirmed by Yovani Liu ([id number]) on 11/09/2024 9:56:32 AM MUSE ECG 11/08/2024 11:2 5 AM EDT 11/09/2024 9:56 AM EDT us Blaire Fuchs MD ECG ORDERABLES Final Result Performing Organization Address City/[facility]/ZIP Co de Phone Number MUSE ECG * US OUTSIDE IMAGES (11/08/2024 7:00 AM EDT) Only the most recent of2 resultswithin the time period is included. Anatomical Region Laterality Modality Ultrasound 11/08/2024 7:00 AM EDT us External Provider IMG US PROCEDURES Final Result * [place] Hepatitis C Antibody (12/16/2017 9:07 PM EDT) Pathologist [facility] [place] Hepatitis C Ab BEING REPEATED TO CONFIRM SUNQUEST 12/16/2017 9:0 7 PM EDT 12/16/2017 9:17 PM EDT Emmanuelle [...] updated to appropriate status: Yes Care Teams Cit[employer] Lead Relationship Specialty Start Date End Date Pcp, No [address] [place] [address] PCP - General Family Medicine 06/16/23
--- OUTSIDE RECORDS SUMMARY | 2025-01-13 08:47 | XMS_ITS | Encounter Summary ---
Author Organization [facility] Address [address] [place] [address] Care Team Providers Care Drier And Evaporator Operator Name Role Phone Pcp, No Primary [...] any time in the past 12 m [facility], were you homeless or living in a prison (including now)? No 11/11/2024 [facility] [...] EST Appointment [facility] [address] [place] [address] 03/19/2025 1:45 PM EST Office Visit [facility] Gynecology [address] [place] [address] Karol Jane MD [address] [place] [address] documented as of this encounter Visit Diagnoses Not on filedocumented in this encounter Additional Health Concerns Assessment Noted Time A Body Mass Index follow-up plan has been documented for the patient 11/14/2024 8:03 PM EDT documented as of this encounter Care Teams Drier And Evaporator Operator Relationship Specialty Start Date End Date Pcp, No [address] [place] [address] PCP - General Family Medicine 06/16/23 documented as of this encounter
--- OUTSIDE RECORDS SUMMARY | 2025-01-13 08:47 | XMS_ITS ---
Author Organization [facility] Address [address] [place] [address] Care Team Providers Care Pack Room Operator Name Role Phone Pcp, No Primary [...] that would be needed Recommend admission to legal coordinator onc vs medicine EGS will continue to follow Endometrial cancer 11/10/2024 Assessment & Plan (11/11/2024 11:30 AM EDT): Propulsion Motor And Generator Repairer Onc consultation Assessment & Plan (11/10/2024 1:52 PM EDT): Propulsion Motor And Generator Repairer Onc consultation Metastasis to liver 11/10/2024 Metastasis [...]
--- OUTSIDE RECORDS SUMMARY | 2025-01-13 08:47 | XMS_ITS | Encounter Summary ---
Author Organization [facility] Address [address] [place] [address] Care Team Providers Care Fruit And Vegetable Inspector Name Role Phone Pcp, No Primary [...] any time in the past 12 m [facility], were you homeless or living in a long term (including now)? No 11/18/2024 [facility] Utilities Answer Date Recorded In the [...] drink first t nicolas in the morning (EYE-DIRECTOR STARS) to steady your nerves or to get [...] EST Appointment [facility] [address] [place] [address] 03/19/2025 1:45 PM EST Office Visit [facility] [address] [place] [address] Karol Jane MD [address] [facility] [address] [place] [address] documented as of this encounter Visit Diagnoses Not on filedocumented in this encounter Additional Health Concerns Assessment Noted Time A Body Mass Index follow-up plan has been documented for the patient 11/21/2024 8:58 AM EDT documented as of this encounter Care Teams Fruit And Vegetable Inspector Relationship Specialty Start Date End Date Pcp, No [address] [place] [address] PCP - General Family Medicine 06/16/23 documented as of this encounter
--- OUTSIDE RECORDS SUMMARY | 2025-01-13 08:48 | XMS_ITS | Encounter Summary ---
Author Organization [facility] Address [address] [place] [address] Care Team Providers Care Assembler Adjuster Name Role Phone Pcp, No Primary Care [...] any time in the past 12 m [facility], were you homeless or living in a long term (including now)? No 11/18/2024 [facility] Utilities Answer Date Recorded In the past 12 months has e [employer], gas, oil, or water [employer] threatened to shut off services in your [...] drink first t nicolas in the morning (EYE-ORDNANCE ARTIFICER) to steady your nerves or to get [...] Appointment [facility] [address] [place] [id number] 03/19/2025 1:45 PM EST Office Visit [facility] [address] [place] [address] Karol Jane MD [address] [facility] [address] [place] [address] documented as of this encounter Visit Diagnoses Not on filedocumented in this encounter Additional Health Concerns Assessment Noted Time A fall risk assessment has been complete d for the patient 12/04/2024 10:03 AM EDT A Body Mass Index follow-up plan has been documented for the patient 11/21/2024 8:58 AM EDT documented as of this encounter Care Teams Assembler Adjuster Relationship Specialty Start Date End Date Pcp, Saloni [address] [place] [address] PCP - General Family Medicine 06/16/23 documented as of this encounter
--- OUTSIDE RECORDS SUMMARY | 2025-01-13 08:48 | XMS_ITS | Encounter Summary ---
Author Organization [facility] Address [address] [place] [address] Care Team Providers Care Inspector Heating And Refrigeration Name Role Phone Pcp, No Primary Care [...] any time in the past 12 m [facility], were you homeless or living in a residential (including now)? No 11/18/2024 [facility] [...] drink first t nicolas in the morning (EYE-TITLE I INSTRUCTIONAL ASSISTANT) to steady your nerves or to get [...] EST Appointment [facility] [address] [place] [address] 03/19/2025 1:45 PM EST Office Visit [facility] [address] [place] [address] Karol Jane MD [address] [facility] [address] [facility] [address] [place] [address] documented as of this encounter Visit Diagnoses Not on filedocumented in this encounter Additional Health Concerns Assessment Noted Time A Body Mass Index follow-up plan has been documented for the patient 11/21/2024 8:58 AM EDT documented as of this encounter Care Teams Inspector Heating And Refrigeration Relationship Specialty Start Date End Date Pcp, No [address] [place] [address] PCP - General Family Medicine 06/16/23 documented as of this encounter
--- OUTSIDE RECORDS SUMMARY | 2025-01-13 08:48 | XMS_ITS | Encounter Summary ---
Author Organization [facility] Address [address] [place] [address] Care Team Providers Care Glassware Verifier Name Role Phone Pcp, No Primary Care [...] any time in the past 12 m [facility], were you homeless or living in a fpc (including now)? No 11/18/2024 [facility] Utilities Answer Date Recorded In the past [...] drink first t nicolas in the morning (EYE-PERSONAL DRIVER) to steady your nerves or to get [...] EST Appointment [facility] [address] [place] [phone] 03/19/2025 1:45 PM EST Office Visit [facility] [address] [place] [address] Karol Jane MD [address] [place] [address] documented as of this encounter Visit Diagnoses Not on filedocumented in this encounter Additional Health Concerns Assessment Noted Time A Body Mass Index follow-up plan has been documented for the patient 11/21/2024 8:58 AM EDT documented as of this encounter Care Teams Glassware Verifier Relationship Specialty Start Date End Date Pcp, No [address] [address] PCP - General Family Medicine 06/16/23 documented as of this encounter
[2025-01-13 09:25] LABS: Hematocrit 31.4 % (37.0-47.0); Hemoglobin 9.9 g/dL (12.2-16.2); Immature Granulocytes % 1.4 %; Mean Corpuscular HGB Conc 31.5 g/dL (31.8-35.4); Mean Corpuscular Hemoglobin 27.2 pg (27.0-31.2); Mean Corpuscular Volume 86.3 fl (81-99); Nucleated Red Blood Cells % 0 %; Platelet Count 166 K/mm3 (142-424); Red Blood Count 3.64 M/mm3 (4.20-5.40); Red Cell Distribution Width-SD 52.5 fL; White Blood Count 5.8 K/mm3 (4.8-10.8)
[2025-01-13 09:30] LABS: Alanine Aminotransferase 16 U/L (12-78); Albumin Level 3.7 g/dl (3.5-5.0); Albumin/Globulin Ratio 1.0 (1.1-1.8); Alkaline Phosphatase 163 U/L (38-126); Anion Gap 10.5 mEq/L (5-15); Aspartate Amino Transferase 24 U/L (14-36); Bilirubin,Total 0.6 mg/dl (0.2-1.3); Blood Urea Nitrogen 7 mg/dl (7-17); Calcium 8.8 mg/dl (8.4-10.2); Carbon Dioxide 24 mmol/L (22.0-30.0); Chloride 106 mmol/L (98-107); Creatinine,Serum 0.70 mg/dl (0.52-1.04); Estimated Glomerular Filt Rate 90 ml/min (>60); GFR (African American) 109 ML/MIN (>60); Globulin 3.7 g/dL (1.3-3.2); Glucose 99 mg/dl (74-100); Potassium 3.5 mmoL/L (3.5-5.1); Sodium 137 mmol/L (136-145); Total Protein,Serum 7.4 g/dl (6.3-8.2)
[2025-01-13] MEDS: FAMOTIDINE 20MG TABLET 20 MG PO (09:55)
[2025-01-13] MEDS: ACETAMINOPHEN 325MG TAB 650 MG PO (09:55)
[2025-01-13] MEDS: DEXAMETHASONE 4MG TABLET 12 MG PO (09:56)
[2025-01-13] MEDS: LORATADINE 10MG TABLET 10 MG PO (09:56)
[2025-01-13] MEDS: WATER IV (10:35)
[2025-01-13] MEDS: PACLITAXEL IV (10:35)
[2025-01-13] MEDS: DEXTROSE 5% IV (10:35)
[2025-01-13] MEDS: SODIUM CHLORIDE 0.9% IV (13:50)
[2025-01-13] MEDS: CARBOPLATIN IV (13:50)
[2025-01-13] MEDS: SODIUM CHLORIDE 0.9% 100ML BAG 100 ML IV (14:00)
[2025-01-13] MEDS: SODIUM CHLORIDE 0.9% 10ML FLUSH SYRINGE 10 ML IV (14:00)
[2025-01-13] MEDS: PROCHLORPERAZINE 10MG/2ML VIAL 10 MG (14:00)
--- NOTE | 2025-01-13 14:05 | PC.NURSE ---
1405- pt began vomiting and asked to use the restroom due to feeling the urge to have a bowel movement. chemo was stopped and pt was escorted to restroom. pt continue to vomit and was having episodes of diarrhea. pt then began to feel light-headed, dizzy, SOA while on commode. 3L NC was applied, vitals were taken, BP 106/45, HR 120, sat 97% on 3L. pt was helped into a wheelchair adn taken to bay 7 into the bed. BP and HR remained stable, BP 140/85, HR 115. O2 was 89% on 4L. pt stated nausea and SOA was improving. dr swan contacted at 1422. he wanted pt transferred to ER due to O2 needs.
--- NOTE | 2025-01-13 14:25 | PC.NURSE ---
1425- pt satting 89% on 4L NC, BP stable at 140/85, HR 115. Dr Veloz contacted by INOCENCIA Rowell and was told by him to send pt to the ER for further evaluation. pt and aunt taken to ER by bed by this RN, INOCENCIA Worthington and INOCENCIA Daly. report given to RN in ER and MD at bedside. pt stable at this time.
--- NOTE | 2025-01-13 15:11 | ECG_ITS ---
APPROVED REPORT Exam: Resting ECG HR:95 bpm ECG Measurements Heart Rate 95 AXES OR 133 P 96 QRSd 97 QRS 56 QT 372 T 41 QTc 425 Conclusion SINUS RHYTHM POSSIBLE LEFT ATRIAL ENLARGEMENT [-0.1mV P-WAVE IN V1/V2] INCOMPLETE RIGHT BUNDLE BRANCH BLOCK [90+ ms QRS DURATION, TERMINAL R IN V1/V2, 40+ ms S IN I/aVL/V4/V5/V6] BORDERLINE ECG Electronically signed by : FERMIN MENESES, 01/19/2025 07:20:20
== END 2025-01-13 23:59 | disposition home or self-care (01) ==
LOC: INF 08:42
PROVIDERS: PCP Internal Medicine; Visit Provider Internal Medicine Medical Oncology
DX: C55 Malignant neoplasm of uterus, part unspecified (principal); Z51.11 Encounter for antineoplastic chemotherapy
CPT/HCPCS: 36415; 80053; 85025; 93005; 96413; 96415; J0780; J1100; J1200; J7040; J7050; J7060; J8540; J9045; J9267

== ENCOUNTER 2025-01-13 14:32 | Emergency (ER) | payer MEDICAID, SELFPAY ==
--- OUTSIDE RECORDS SUMMARY | 2024-11-08 10:13 | XMS_ITS | Encounter Summary ---
Author Organization [facility] Address [address] [place] [address] Care Team Providers Care Compliance Field Technician Name Role Phone Pcp, No Primary Care Provider Unavailabl e Reason for Referral * Imaging (Routine) - Closed Specialty Diagnoses / Procedures Referred By Contac t Referred To Contact Radiology Diagnoses Metastasis to liver Procedures US Guided Needle Biopsy Liver CT Guided Biopsy Liver Franko Nava MD [address] [place] [phone] Phone: tel: fax: Referral ID Status Reason Start Date Expiration Date Visits Re quested Visits Authorized [id number] Closed 11/14/2024 05/16/2026 1 1 * Imaging (Routine) - Closed Specialty Diagnoses / Procedures Referred By Contac t Referred To Contact Radiology Diagnoses Metastasis to liver Procedures IR Embolization Tumor or Ischemia or Infarction Franko Nava MD [address] [place] [phone] Phone: tel: fax: Referral ID Status Reason Start Date Expiration Date Visits Re quested Visits Authorized [id number] Closed 11/14/2024 05/16/2026 1 1 Reason for Visit * Reason Comments Multiple Complaints * Auth/Cert (Routine) Specialty Diagnoses / Procedures Referred By Contac t Referred To Contact Diagnoses SBO (small bowel obstruction) H/O cholelithiasis Other cholelithiasis without obstruction JOSIAS, symptomatic chololithiasis Rui Leonard, DO [address] [address] Phone: tel: fax: [facility] Inpatient [address] [place] [address] Phone: tel: Referral ID Status Reason Start Date Expiration Date Visits Re quested Visits Authorized [id number] 1 1 Encounter Details Date Type Department Care Team (Late st Contact Info) Description 11/08/2024 11:13 AM EDT - 11/14/2024 8:50 PM EDT Hospital Encounter [facility] Inpatient [address] [place] [phone] Long Rios MD [address] [place] [address] Mi Pascal, DO [address] [place] [id number] Rui Leonard, DO [address] [address] Morelia Galvez MD [address] [address] Korey Rolle MD [address] [facility] [address] [place] [id number] Karol Jane MD [address] [facility] [address] [place] [address] Metastasis to liver (CMS/HCC) (Primary Dx); Calculus of gallbladder without cholecystitis without obstruction Discharge Disposition: Home or Self Care Social History Tobacco Use Types Packs/Day Years Used Date Smoking Tobacco: Every Day Humiliation, Afraid, Rape, and Kick questionnair e Answer Date Recorded Within the last year, have y ou been afraid of your partner or ex-partner? No 11/11/2024 Within the last year, have y ou been humiliated or emotionally abused in other ways by your partner or ex-partner? No Within the last year, have y ou been kicked, hit, slapped, or otherwise physically hurt by your partner or ex-partner? No 11/11/2024 Within the last year, have y ou been raped or forced to have any kind of sexual activity by your partner or ex-partner? No 11/11/2024 Hunger Vital Sign Answer Date Recorded Within the past 12 months, y ou worried that your food would run out before you got the money to buy more. Never true 11/12/19 25 Within the past 12 months, t he food you bought just didn't last and you didn't have money to get more. Never true 11/11/2024 PRAPARE - Transportation Answer Date Re corded In the past 12 months, has l ack of transportation kept you from medical appointments or from getting medications? No 04/2024 In the past 12 months, has l ack of transportation kept you from meetings, work, or from getting things needed for daily living? No 11/11/2024 Housing Stability Vital Sign Answer Collin e Recorded In the last 12 months, was t here a time when you were not able to pay the mortgage or rent on time? No 11/11/2024 Number of Times Moved in the Last Year Not on fi le 11/11/2024 At any time in the past 12 m [facility], were you homeless or living in a usp (including now)? No 11/11/2024 [facility] Utilities Answer Date Recorded In the past 12 months has th e [employer], gas, oil, or water [employer] threatened to shut off services in your home? No 11/11/2024 Comments Unknown Sex and Gender Information Value Date Recorded Sex Assigned at Not on file Legal Sex Female 7:49 PM EDT Gender Identity Not on file Sexual Orientation Not on file documented as of this encounter Last Filed Vital Signs Vital Sign Reading Time Taken Comments Blood Pressure 132/68 11/14/2024 5:06 PM EDT Pulse 82 11/14/2024 5:06 PM EDT Temperature 37.1 C (98.8 F) 11/14/2024 5:06 PM EDT Respiratory Rate 25 11/14/2024 4:00 PM EDT Oxygen Saturation 97% 11/14/2024 5:06 PM EDT Inhaled Oxygen Concentration - - Weight 111 kg (244 lb 7.8 oz) 11/14/2024 3:00 PM EDT Height 175.3 cm (5' 9 ) 11/08/2024 11:21 AM EDT Body Mass Index 36.1 11/08/2024 11:21 AM EDT documented in this encounter Functional Status * Calculated C-SSRS Risk Score (Lifetime/Recent) Answer Date of Assessment Author No Risk Indicated 11/09/2024 8:00 PM EDT Edel Aguirre RN * Question Answer Date of Assessment Author 1. Wish to be (Past 1 Month) No 025 8:00 PM EDT Edel Aguirre RN 2. Non-Specific Active Suici sierra Thoughts (Past 1 Month) No 11/09/2024 8:00 PM EDT Edel Aguirre RN 6. Suicidal Behavior (Lifetime) No 8:00 PM EDT Edel Aguirre RN documented as of this encounter Discharge Instructions * Discharge Instructions* Kathe Dodge RN - 11/14/2024 9:35 AM EDT *Interventional Radiology* (IR) Questions/Concerns & Appointments If there are questions or concerns after discharge please call: [facility] at [phone] Sunday - Sunday 8:00 AM to 4:30 PM After hours, weekends, and holidays please call [phone] and ask for the Interventional Radiology provider/Resident on-call For Emergencies please go to the nearest Emergency Room or dial 911. Intervention Radiology Appointments: If you need to reschedule a procedure, please call our Schedulers at [phone], option 4. If you need to schedule or reschedule a clinic appointment, please call [phone]. [facility] Vascular and Interventional Radiology Clinic [facility] [address] [place] [address] Follow-Up / Post Discharge Instructions Medication Recommendations: - Okay to resume home medications - Take all medications as prescribed. - Acetaminophen (Tylenol) 650mg every 4-hrs alternating with ibuprofen 600mg every 6hrs for pain control. - Take oxycodone 5mg q4h prn pain Call MD front line leader for [facility] service if: - you have a fever of 100.4 F or more - vaginal bleeding similar to a period - uncontrolled pain - difficulty with urination - persistent nausea/vomiting Follow up: Dr[facility] Karol Jane - [facility] [address] [facility] [address], [place] [address] documented in this encounter Medications at Time of Discharge acetaminophen (Tylenol) 500 MG tablet Take 1 tablet by mouth every 6 hours. 100 tablet 1 11/14/2024 methocarbamol (Robaxin) 500 MG tablet Take 1 tablet by mouth 4 times a day. 120 tablet 1 11/14/2024 ondansetron ODT (Zofran-ODT) 4 MG disintegrating tablet Dissolve 1 tablet on the tongue every 6 hours as needed for nausea or vomiting. 10 tablet 1 11/14/2024 documented as of this encounter Miscellaneous Notes * H&P - Luis Miguel Estes MD - 11/14/2024 8:50 PM EDT Images from the original note were not included. Subjective Chief complaint Enlarging tumors of the liver and spleen (high grade endometrial cancer) with concerns of intratumoral hemorrhage History Of Present Illness Radha Aparicio is a 44 y.o. female presenting with abdominal pain, nausea and vomiting since 1week. She has a history of high grade endometrial cancer, discovered in 2017, with splenic and hepatic metastasis (previously biopsied) at the time, previously regressing on chemotherapy with the last control done in June 2023 demonstrating a re-increase in the size of the hepatic lesions. The CT scan done during this admission to the ER, showed a major increase in the size of the hepatic lesions at segments VII and VIII. IR were consulted for re-biopsy of the hepatic lesions. Medical/Surgical/Social/Family History Past Medical History[1] Surgical History[2] Social History[3] Family History[4] Travel History Relevant International Travel History: Travel Screening No screening recorded since 11/12/242326 Travel History Travel since 10/13/24 No documented travel since 10/13/24 Relevant Domestic Travel History: none relevant Immunizations VACCINE / DOSE Flu Tetanus Pneumovax Shingles Allergies Patient has no known allergies. Medications Current Medications[5] Objective GENERAL: Alert, well-appearing, in NAD CARDIOVASCULAR: Normal rate RESPIRATORY: Normal respiratory effort on room air GASTROINTESTINAL: Soft, non-distended. GENITOURINARY: Deferred SKIN: Warm, dry, well-perfused. PSYCHIATRIC: AO x3, with appropriate affect, normal thought processes EXREMITIES: Symmetric. No peripheral edema. Last Recorded Vitals Blood pressure 132/68, pulse 82, temperature 37.1 ??C (98.8 ??F), resp. rate 25, height 1.753 m (5'9 ), weight 111 kg (244 lb 7.8 oz), SpO2 97%. Results Review I have reviewed the latest lab and imaging results. The most significant being as follows: - as compared to the previous CT scans, the Ct scan at admission shows a tremendous increase in thesize most cranial hepatic mass (segment VIII) measuring today 15 cm in the long axial diameter vs 5cm on the previous exam with linear intralesional hyperdensities. Meanwhile the second hepatic lesions and the splenic lesion has only moderately increased in size despite showing a more important soft tissue component on the previous exams (as compared to the mostcystic nature of the most cranial hepatic dome lesion). Borderline retroperitoneal lymph nodes and right pleural effusion. 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 lady with history of high grade metastatic endometrial cancer with hepatic, splenic and LN metastasis since 2017, previously regressing under chemotherapy until 2023, presenting for 1 week ofabdominal pain, nausea and vomiting. CT scan at admission showed a non proportional increase in the size of the hepatic dome lesions (the most cranial lesion: 15 cm vs 5 cm in 2023, the most anterior and inferior lesion: 10 cm vs 8 cm in 2023) despite the predominantly cystic component of the most cranial lesion. This is concerning for intratumoral hemorrhage. Will perform bland embolization and re-biopsy of the hepatic lesion - primary team to add any genetic tests if needed on biopsy. - Originally scheduled 11/14/24, rescheduled to 11/18/24 due to lack of scheduling availability Medically Ready for Discharge: Inpatient. [1] Past Medical History: Diagnosis Date Disease of salivary gland, unspecified Parotid mass Endometrial cancer (CMS/HCC) [2] Past Surgical History: Procedure Laterality Date HYSTERECTOMY N/A Hysterectomy from [facility] TUBAL LIGATION N/A Tubal ligation from [facility] [3] Social History Tobacco Use Smoking status: Every Day [4] Family History Problem Relation Name Age of Onset Bone cancer Paternal Grandfather Family history of bone cancer Hypertension Father Family history of hypertension Breast cancer Paternal Grandmother FH: breast cancer Breast cancer Maternal Grandmother FH: breast cancer Throat cancer Other FH: throat cancer Throat cancer Other FH: throat cancer [5] No current facility-administered medications for this encounter. Current Outpatient Medications Medication Sig Dispense Refill acetaminophen (Tylenol) 500 MG tablet Take 1 tablet by mouth every 6 hours. 100 tablet 1 methocarbamol (Robaxin) 500 MG tablet Take 1 tablet by mouth 4 times a day. 120 tablet 1 ondansetron ODT (Zofran-ODT) 4 MG disintegrating tablet Dissolve 1 tablet on the tongue every 6 hours as needed for nausea or vomiting. 10 tablet 1 Facility-Administered Medications Ordered in Other Encounters Medication Dose Route Frequency Provider Last Rate Last Admin acetaminophen (Tylenol) tablet 1,000 mg 1,000 mg Oral q6h LIAT Deysi Pinedo MD 1,000 mg at 11/18/24 1229 lactated Ringer's infusion 75 mL/hr Intravenous Continuous Rebekah Kwan MD 75 mL/hr at 11/18/24 0000 75 mL/hr at 11/18/24 0000 methocarbamol (Robaxin) tablet 500 mg 500 mg Oral 4x daily Rebekah Kwan MD 500 mg at 11/18/24 0950 ondansetron (Zofran) injection 4 mg 4 mg Intravenous q6h PRN Rebekah Kwan MD ondansetron ODT (Zofran-ODT) disintegrating tablet 4 mg 4 mg Oral q6h PRN Rebekah Kwan MD oxyCODONE (Roxicodone) immediate release tablet 5 mg 5 mg Oral q4h PRN Deysi Pinedo MD 5 mg at11/17/24 2339 Or oxyCODONE (Roxicodone) immediate release tablet 10 mg 10 mg Oral q4h PRN Deysi Pinedo MD 10 mgat 11/18/24 0950 pantoprazole (Protonix) EC tablet 40 mg 40 mg Oral Daily Rebekah Kwan MD 40 mg at 11/18/24 0950 sodium chloride 0.9 % flush 10 mL 10 mL Intravenous q12h Rebekah Kwan MD 10 mL at 11/18/24 0545 And sodium chloride 0.9 % flush 10 mL 10 mL Intravenous PRN Rebekah Kwan MD * Care Plan - Naida Ly RN - 11/14/2024 8:18 PM EDT Problem: Adult Inpatient Plan of Care Goal: Plan of Care Review Outcome: Met Goal: Patient-Specific Goal (Individualized) Outcome: Met Goal: Absence of Hospital-Acquired Illness or Injury Outcome: Met Goal: Optimal Comfort and Wellbeing Outcome: Met Problem: Fall Injury Risk Goal: Absence of Fall and Fall-Related Injury Outcome: Met Problem: Pain Acute Goal: Optimal Pain Control and Function Outcome: Met Problem: Nausea and Vomiting Goal: Nausea and Vomiting Relief Outcome: Met Pt personal items taken and discharge info. Given no questions. PIV removed * Pre-Procedure Note - Michelle Ramos MD - 11/14/2024 2:30 PM EDT Images from the original note were not included. INTERVENTIONAL RADIOLOGY SEDATION PRE-PROCEDURAL ASSESSMENT AND PLAN OF CARE Indication for procedure: There were no encounter diagnoses. Planned Procedure: biopsy and embolization of the anterior and posterior hepatic lesions respectively (VIII) Relevant past medical history: endometrial cance Previous problems with surgery, anesthesia or sedation: No Previous family history or problems with anesthesia or sedation: No History of tobacco use, alcohol use, or substance abuse: Tobacco Use History[1], Social History Substance and Sexual Activity Alcohol Use Not on file , Social History Substance and Sexual Activity Drug Use Not on file Height and Weight: There were no vitals taken for this visit. Allergies to medication: Carboplatin Current medications: Current Medications[2] Relevant Labs: Lab Results Component Value Date CREATININE 1.06 11/13/2024 EGFR 65.7 11/13/2024 INR 1.3 (H) 11/08/2024 Planned Sedation/Anesthesia: Moderate Airway assessment: normal Mallampati Score: II (hard and soft palate, upper portion of tonsils anduvula visible) ASA: ASA 2 - Patient with mild systemic disease with no functional limitations Directed physical examination: There were no vitals filed for this visit. Constitutional: Appearance: Normal appearance. HENT: Head: Normocephalic and atraumatic. Eyes: Conjunctiva/sclera: Conjunctivae normal. Cardiovascular: Rate and Rhythm: Normal rate. Pulmonary: Effort: Pulmonary effort is normal. Musculoskeletal: General: Normal range of motion. Cervical back: Normal range of motion. Neurological: General: No focal deficit present. Mental Status: She is alert and oriented to person, place, and time. Skin: General: Skin is warm and dry. Capillary Refill: Capillary refill takes less than 2 seconds. Psychiatric: Mood and Affect: Mood normal. Behavior: Behavior normal. Benefits, risks and alternatives of procedure and planned sedation have been discussed with the patient and/or their patient financial representative. All questions answered and they agree to proceed. [1] Social History Tobacco Use Smoking Status Every Day Smokeless Tobacco Not on file [2] No current facility-administered medications for this visit. No current outpatient medications on file. Facility-Administered Medications Ordered in Other Visits Medication Dose Route Frequency Provider Last Rate Last Admin acetaminophen (Tylenol) tablet 500 mg 500 mg Oral q6h LIAT Jennifer Capps E, PAD EXTRACTOR TENDER 500 mg at 11/13/24 1810 benzocaine-menthol (Chloraseptic) 6-10 MG lozenge 1 lozenge 1 lozenge Mouth/Throat q4h PRN Morena Gray MD 1 lozenge at 11/11/24 0044 calcium carbonate (Tums) chewable tablet 500 mg 500 mg Oral Daily Morelia Galvez MD 500 mg at11/11/24 0826 enoxaparin (Lovenox) syringe 40 mg 40 mg Subcutaneous Daily Laxmi Garrido MD 40 mg at 11/13/24 0843 guaiFENesin (Mucinex) 12 hr tablet 600 mg 600 mg Oral BID PRN Morena Gray MD 600 mg at 11/12/243 [START ON 11/14/2024] lactated Ringer's infusion 75 mL/hr Intravenous Continuous Morena Gray MD loperamide (Imodium A-D) tablet 2 mg 2 mg Oral 4x daily PRN Morena Gray MD methocarbamol (Robaxin) tablet 500 mg 500 mg Oral 4x daily Jennifer Capps E, PAD EXTRACTOR TENDER 500 mg at 11/13/24 2019 metoclopramide (Reglan) tablet 5 mg 5 mg Oral q6h PRN Ayan Fuentes MD 5 mg at 11/09/24 1548 Or metoclopramide (Reglan) injection 5 mg 5 mg Intravenous q6h PRN Ayan Fuentes MD 5 mg at 11/11/24 0708 ondansetron ODT (Zofran-ODT) disintegrating tablet 4 mg 4 mg Oral q6h PRN Yunier Gamino MD 4 mg at 11/12/24 0838 Or ondansetron (Zofran) injection 4 mg 4 mg Intravenous q6h PRN Yunier Gamino MD 4 mg at 252 Or ondansetron (Zofran) 4 MG/5ML solution 4 mg 4 mg Oral q6h PRN Yunier Gamino MD sodium chloride 0.9 % flush 10 mL 10 mL Intravenous q12h Laxmi Garrido MD 10 mL at 11/13/242018 And sodium chloride 0.9 % flush 10 mL 10 mL Intravenous PRN Laxmi Garrido MD * H&P - Michelle Ramos MD - 11/14/2024 2:30 PM EDT Images from the original note were not included. Subjective Chief complaint Enlarging tumors of the liver and spleen (high grade endometrial cancer) with concerns of intratumoral hemorrhage History Of Present Illness Radha Aparicio is a 44 y.o. female presenting with abdominal pain, nausea and vomiting since 1week. She has a history of high grade endometrial cancer, discovered in 2017, with splenic and hepatic metastasis (previously biopsied) at the time, previously regressing on chemotherapy with the last control done in June 2023 demonstrating a re-increase in the size of the hepatic lesions. The CT scan done during this admission to the ER, showed a major increase in the size of the hepatic lesions at segments VII and VIII. IR were consulted for re-biopsy of the hepatic lesions. Medical/Surgical/Social/Family History Past Medical History[1] Surgical History[2] Social History[3] Family History[4] Travel History Relevant International Travel History: Travel Screening No screening recorded since 11/12/24 2547 Travel History Travel since 10/13/24 No documented travel since 10/13/24 Relevant Domestic Travel History: none relevant Immunizations VACCINE / DOSE Flu Tetanus Pneumovax Shingles Allergies Carboplatin Medications Current Medications[5] Objective GENERAL: Alert, well-appearing, in NAD CARDIOVASCULAR: Normal rate RESPIRATORY: Normal respiratory effort on room air GASTROINTESTINAL: Soft, non-distended. GENITOURINARY: Deferred SKIN: Warm, dry, well-perfused. PSYCHIATRIC: AO x3, with appropriate affect, normal thought processes EXREMITIES: Symmetric. No peripheral edema. Last Recorded Vitals There were no vitals taken for this visit. Results Review I have reviewed the latest lab and imaging results. The most significant being as follows: - as compared to the previous CT scans, the Ct scan at admission shows a tremendous increase in thesize most cranial hepatic mass (segment VIII) measuring today 15 cm in the long axial diameter vs 5cm on the previous exam with linear intralesional hyperdensities. Meanwhile the second hepatic lesions and the splenic lesion has only moderately increased in size despite showing a more important soft tissue component on the previous exams (as compared to the mostcystic nature of the most cranial hepatic dome lesion). Borderline retroperitoneal lymph nodes and right pleural effusion. - The bilirubin is normal (1) Assessment & Plan 44 y.o. lady with history of high grade metastatic endometrial cancer with hepatic, splenic and LN metastasis since 2018, previously regressing under chemotherapy until 2023, presenting for 1 week ofabdominal pain, nausea and vomiting. CT scan at admission showed a non proportional increase in the size of the hepatic dome lesions (the most cranial lesion: 15 cm vs 5 cm in 202, the most anterior and inferior lesion: 10 cm vs 8 cm in 202) despite the predominantly cystic component of the most cranial lesion. This is concerning for intratumoral hemorrhage. Will perform bland embolization and re-biopsy of the hepatic lesion - primary team to add any genetic tests id needed on biopsy. Medically Ready for Discharge: Inpatient. [1] Past Medical History: Diagnosis Date Disease of salivary gland, unspecified Parotid mass [2] Past Surgical History: Procedure Laterality Date HYSTERECTOMY N/A Hysterectomy from [facility] TUBAL LIGATION N/A Tubal ligation from [facility] [3] Social History Tobacco Use Smoking status: Every Day [4] Family History Problem Relation Name Age of Onset Bone cancer Paternal Grandfather Family history of bone cancer Hypertension Father Family history of hypertension Breast cancer Paternal Grandmother FH: breast cancer Breast cancer Maternal Grandmother FH: breast cancer Throat cancer Other FH: throat cancer Throat cancer Other FH: throat cancer [5] No current facility-administered medications for this visit. No current outpatient medications on file. Facility-Administered Medications Ordered in Other Visits Medication Dose Route Frequency Provider Last Rate Last Admin acetaminophen (Tylenol) tablet 500 mg 500 mg Oral q6h LIAT Jennifer Capps, PAD EXTRACTOR TENDER 500 mg at 11/13/24 1810 benzocaine-menthol (Chloraseptic) 6-10 MG lozenge 1 lozenge 1 lozenge Mouth/Throat q4h PRN Morena Gray MD 1 lozenge at 11/11/24 0044 calcium carbonate (Tums) chewable tablet 500 mg 500 mg Oral Daily Morelia Galvez MD 500 mg at11/11/24 0826 enoxaparin (Lovenox) syringe 40 mg 40 mg Subcutaneous Daily Laxmi Garrido MD 40 mg at 11/13/24 0843 guaiFENesin (Mucinex) 12 hr tablet 600 mg 600 mg Oral BID PRN Morena Gray MD 600 mg at 11/12/24 2133 [START ON 11/14/2024] lactated Ringer's infusion 75 mL/hr Intravenous Continuous Morena Gray MD loperamide (Imodium A-D) tablet 2 mg 2 mg Oral 4x daily PRN Morena Gray MD methocarbamol (Robaxin) tablet 500 mg 500 mg Oral 4x daily Jennifer Capps, PAD EXTRACTOR TENDER 500 mg at 11/13/24 2019 metoclopramide (Reglan) tablet 5 mg 5 mg Oral q6h PRN Ayan Fuentes MD 5 mg at 11/09/24 1548 Or metoclopramide (Reglan) injection 5 mg 5 mg Intravenous q6h PRN Ayan Fuentes MD 5 mg at 11/11/24 0708 ondansetron ODT (Zofran-ODT) disintegrating tablet 4 mg 4 mg Oral q6h PRN Yunier Gamino MD 4 mg at 11/12/24 0838 Or ondansetron (Zofran) injection 4 mg 4 mg Intravenous q6h PRN Yunier Gamino MD 4 mg at 252 Or ondansetron (Zofran) 4 MG/5ML solution 4 mg 4 mg Oral q6h PRN Yunier Gamino MD sodium chloride 0.9 % flush 10 mL 10 mL Intravenous q12h Hema, Laxmi G, MD 10 mL at 11/13/242018 And sodium chloride 0.9 % flush 10 mL 10 mL Intravenous PRN Laxmi Garrido MD Cosigned by Franko Nava MD at 11/18/2024 2:26 PM EDT * Discharge Summary - Mayte Khanna MD - 11/14/2024 10:03 AM EDT Hospitalization Admit Date/Time: 11/08/2024 11:13 AM Admitting Attending: Rui Leonard Discharge Date: 11/14/2024 Discharge Attending Physician: Karol Jane MD PCP name and Address: Pcp, [place] [address] Referring provider name and address: Choco Roy, [address] [place] [address] Chief Concern, Brief History of Present Illness, and Hospital Course Radha Aparicio is a 44 y.o. female with history of high grade endometroid adenocarcinoma that previously saw the [facility] team and was lost to follow up. She presented with one week of nausea, vomiting, anorexia, and RUQ pain. She was initially admitted to the Trauma Surgery service for c/f cholecystitis. A RUQ US was performed that demonstrated cholelithiasis without cholecystitis. CT A/P was performed on 11/09 demonstrated interval increase size of liver lesions and splenic metastatic lesions compared to prior CT from 2023. Due to concern for intratumoral hemorrhage within the liver lesions, interventional radiology was consulted and performed an embolization & biopsy on 11/14. Caris testing was sent on the collected specimen. The patient was discharged to home on HD# 6. On discharge, she was ambulating and tolerating PO. She has a follow up scheduled with Dr. Veloz at [facility] on 11/25. Surgeries and Procedures Procedures performed in this encounter Procedures IR Anesthesia Request IR Anesthesia Request Medication List .. acetaminophen 500 MG tablet Commonly known as: Tylenol Take 1 tablet by mouth every 6 hours. ondansetron ODT 4 MG disintegrating tablet Commonly known as: Zofran-ODT Dissolve 1 tablet on the tongue every 6 hours as needed for nausea or vomiting. . ketorolac 10 MG tablet Commonly known as: Toradol Take 1 tablet (10 mg) by mouth every 6 (six) hours if needed for moderate pain. Where to Get Your Medications These medications were sent to [facility] - [place], [place] - 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 - Acetaminophen (Tylenol) 650mg every 4-hrs alternating with ibuprofen 600mg every 6hrs for pain control. - Take oxycodone 5mg q4h prn pain Call MD front line leader for [facility] service if: - you have a fever of 100.4 F or more - vaginal bleeding similar to a period - uncontrolled pain - difficulty with urination - persistent nausea/vomiting Follow up: Dr. Karol Jane - [facility] [address], [address], [place] [address] Outpatient Follow-Up Future Appointments Date Time Provider Department Center 11/14/2024 2:30 PM [facility] Discharge Disposition/Condition Disposition: Home Condition: Stable (s/sx potential problems absent or manageable) I spent < 30 minutes of patient care and instruction time in preparation for this discharge. Mayte Khanna MD Obstetrics & Gynecology, PGY-2 Cosigned by Karol Jane MD at 11/15/2024 7:53 AM EDT Associated attestation - Karol Jane MD - 11/15/2024 7:53 AM EDT I saw and evaluated the patient with the resident/fellow. I discussed the case with the resident/fellow and agree with the findings and plan as documented. * Progress Notes - Radha Langston RN - 11/14/2024 8:20 AM EDT Case Management Discharge Note Radha Aparicio 44 y.o. female CSN: [id number] Admission: 11/08/2024 11:13 AM Primary Problem: Calculus of gallbladder without cholecystitis without obstruction Primary Quality Reviewer: self/family Assistance Available at Discharge: Kaushal Aparicio (Brother) and her dad Current Outpatient/Agency/Support Group: clinic(s) Availability of Care Givers (#Hours): 24 hours Family/Quality Reviewer(s) Willingness Assessed to care for patient at home: Yes Family/Quality Reviewer(s) Readiness Assessed to care for patient at home: Yes Housing Circumstances-Z Codes: Housing Circumstances (select all that apply): Low Income (101-300% Federal Poverty Guidlines) - Z596 Patient Referred to Financial or Community Resources: n/a Discharge Facility/Level of Care Needs: Discharge Facility/Level of Care Needs: 1-Home or Self Care Patient's Choice of Community Agency(s): [facility] clinic follow up. Patient/Family Anticipated Services at Transition: Patient/Family Anticipated Services at Transition: outpatient care DME/Equipment Needed after Discharge: Equipment Currently Used at Home: none Readmission Within the Last 30 Days: Readmission Within the Last 30 Days: no previous admission in last 30 days Follow-up: Pending [facility] scheduling. Discharge Transportation: aunt Jennifer/Clara or Brother Kaushal Transportation Anticipated: family or friend will provide Transportation Home at Discharge: Family/Friend will Provide Follow Up Transport: family Transportation Needed to Follow up Appoinments: Family/Friend will Provide Additional Comments: per team, plan to discharge to home post IR embolization and biopsy of hepaticlesion today. No needs reported by patient or [facility] team. Patient reports home assistance and transport. [id number] enrollment complete. Radha Langston RN * Progress Notes - Morena Gray MD - 11/14/2024 4:37 AM EDT Gynecologic Oncology Daily Progress Note Subjective NAEON. Her pain is controlled with PO medications, improved. Tolerating PO but has been NPO since midnight. Voiding spontaneously. Denies fever, chills, SOA, chest pain. Review of Systems 10-point ROS performed and negative except as per HPI. Objective Temp: [36.5 ??C (97.7 ??F)-37.1 ??C (98.7 ??F)] 37.1 ??C (98.7 ??F) Heart Rate: [65-90] 65 Resp: [16] 16 BP: (116-127)/(68-81) 126/76 Vitals: 11/13/24 2337 BP: 126/76 Pulse: 65 Resp: 16 Temp: 37.1 ??C (98.7 ??F) SpO2: 95% I/O last 3 completed shifts: In: 908.8 (8.2 mL/kg) [P.O.:840; IV Piggyback:68.8] Out: - (0 mL/kg) Weight: 110.9 kg Physical Exam: GENERAL: Alert, well-appearing, in NAD CARDIOVASCULAR: Normal rate RESPIRATORY: Normal respiratory effort on room air GASTROINTESTINAL: Soft, non-distended. GENITOURINARY: Deferred SKIN: Warm, dry, well-perfused. PSYCHIATRIC: AO x3, with appropriate affect, normal thought processes EXREMITIES: Symmetric. No peripheral edema. Labs: Lab Results Component Value Date WBC 9.73 11/14/2024 HGB 7.8 (L) 11/14/2024 HCT 24.9 (L) 11/14/2024 MCV 85 11/14/2024 PLT 237 11/14/2024 NEUTROABS 9.84 (H) 11/10/2024 GLUCOSE 85 11/14/2024 BUN 12 11/14/2024 CREATININE 0.99 11/14/2024 NA 142 11/14/2024 K 3.7 11/14/2024 CL 108 (H) 11/14/2024 CO2 21 (L) 11/14/2024 MG 1.9 11/14/2024 PHOS 3.6 11/14/2024 CALCIUM 8.1 (L) 11/14/2024 Imaging: Assessment/Plan Radha Aparicio is a 44 y.o. female with history of high grade endometroid adenocarcinoma previously admitted to Surgery for cholelithiasis. # High grade endometroid adenocarcinoma - Diagnosed 2018 after DIONNA/BSO, liver biopsy, tumor debulking with Dr. Jane for new pelvic mass with associated liver and splenic lesions -- pathology of pelvic mass and liver biopsy both consistent with high grade endometrioid adenocarcinoma - Completed 1 year of chemotherapy (carbo/tax per chart review) with Dr. Veloz at [facility] - Lost to follow up due to family matters -- planned three month scan after completion of treatment - Represented to care [address] stones, CT renal showed multiple large hepatic hypodensities measuring up to 11.3x5.3x8.9 cm with redemonstrated splenic nodule - Has since reestablished with Dr. Veloz due to redemonstration of masses -- has discussed biopsy oflesions and discussion with Dr. Jane's office, unsure if this has been completed yet - Current admission due to fever/chills, N/V, RUQ abd pain w/ inability tolerate PO intake x2 weeks. Initial concern for cholecystitis, admitted for antibiotics and obs. Symptoms improving, felt to have cholelithiasis picture based on CT findings - Denies vaginal bleeding, discharge, weight loss, or other symptoms prior to current acute episode - CT scan 11/09 significant for several large liver lesions (right dome -- [id number] (enlarged from 4.7 x 4.2) & 10.5 x 5.2 x 9.1) and posterior measuring up to 5.2 cm; splenic pericapsular lesion (7.5 x 5.0 x 7.4); borderline enlarged left para-aortic lymph nodes - Patient with acute onset pain, N/V/D, fevers at home, unclear if current clinical picture is attributable to current abdominal masses given concurrent presence of gallstones, but should consider potential for masses to cause biliary obstruction which could result in cholangitis picture explainingher symptoms on admission - Enlarging splenic and liver lesions from prior scans concerning for recurrence vs. Progressive disease (remission never documented, patient reports lesions small at conclusion of chemotherapy) - Care transferred to [facility] 11/10, s/p cefoxitin (11/08-11/10) Plan: - IR planning embolization and biopsy of hepatic lesion Sunday, today - CT Chest for complete assessment of disease burden when kidney function improves - Will obtain records of cancer course and treatment after last surgery for more complete history # Diarrhea (improved) - New over last 2w - C. Diff and GI panel neg - Imodium prn # JOSIAS (resolved) - Cr [0.6]-1.81---0.99 - FENa prerenal - Support with IV fluids # FEN/PPX - NPO/LR @75 - SCDs/pLOV held - Replete electrolytes PRN Dispo: anticipate discharge following procedure, pending stability Thank you for including us in the care of this patient. [facility] will continue to follow. Please messageon-call [facility] resident via [employer] Secure Chat or page [phone] for questions or concerns regarding this patient's [facility] care. Morena Gray MD Obstetrics & Gynecology, PGY-2 [facility] Cosigned by Karol Jane MD at 11/14/2024 2:08 PM EDT Associated attestation - Karol Jane MD - 11/14/2024 2:08 PM EDT I saw and evaluated the patient with the resident/fellow. I discussed the case with the resident/fellow and agree with the findings and plan as documented. * Care Plan - Sumi Renae RN - 11/13/2024 10:06 PM EDT Problem: Adult Inpatient Plan of Care Goal: Plan of Care Review Outcome: Ongoing, Progressing Flowsheets Taken 11/13/20242201 by Sumi Renae RN Progress: no change Taken 11/13/20241654 by Leyda Greenwood RN Plan of Care Reviewed With: patient Goal: Patient-Specific Goal (Individualized) Outcome: Ongoing, Progressing Flowsheets (Taken 11/13/20241999) Patient/Family-Specific Goals (Include Timeframe): pt will remain injury free Individualized Care Needs: safety Anxieties, Fears or Concerns: none Goal: Absence of Hospital-Acquired Illness or Injury Outcome: Ongoing, Progressing Intervention: Identify and Manage Fall Risk Flowsheets (Taken 11/13/20242201) Safety Promotion/Fall Prevention: activity supervised clutter-free environment maintained Intervention: Prevent Skin Injury Flowsheets (Taken 11/13/20242201) Body Position: weight shifting Skin Protection: incontinence pads utilized Intervention: Prevent and Manage VTE (Venous Thromboembolism) Risk Flowsheets (Taken 11/13/20242201) VTE Prevention/Management: medication Intervention: Prevent Infection Flowsheets (Taken 11/13/20242201) Infection Prevention: hand hygiene promoted environmental surveillance performed Goal: Optimal Comfort and Wellbeing Outcome: Ongoing, Progressing Intervention: Monitor Pain and Promote Comfort Flowsheets (Taken 11/13/20242201) Pain Management Interventions: rest Intervention: Provide Person-Centered Care Flowsheets (Taken 11/13/20242201) Trust Relationship/Rapport: care explained choices provided questions encouraged questions answered Problem: Fall Injury Risk Goal: Absence of Fall and Fall-Related Injury Outcome: Ongoing, Progressing Intervention: Identify and Manage Contributors Flowsheets (Taken 11/13/20242201) Medication Review/Management: medications reviewed Self-Care Promotion: independence encouraged BADL personal routines maintained BADL personal objects within reach Intervention: Promote Injury-Free Environment Flowsheets (Taken 11/13/20242201) Safety Promotion/Fall Prevention: activity supervised clutter-free environment maintained Problem: Pain Acute Goal: Optimal Pain Control and Function Outcome: Ongoing, Progressing Intervention: Optimize Psychosocial Wellbeing Flowsheets (Taken 11/13/20242201) Supportive Measures: mindfulness techniques promoted self-care encouraged Diversional Activities: television Spiritual Activities Assistance: hope instilled Intervention: Develop Pain Management Plan Flowsheets (Taken 11/13/20242201) Pain Management Interventions: rest Intervention: Prevent or Manage Pain Flowsheets (Taken 11/13/20242201) Sensory Stimulation Regulation: television on Bowel Elimination Promotion: ambulation promoted adequate fluid intake promoted Sleep/Rest Enhancement: awakenings minimized room darkened relaxation techniques promoted Medication Review/Management: medications reviewed Problem: Nausea and Vomiting Goal: Nausea and Vomiting Relief Outcome: Ongoing, Progressing Intervention: Prevent and Manage Nausea and Vomiting Flowsheets (Taken 11/13/20242201) Fluid/Electrolyte Management: oral rehydration therapy initiated Environmental Support: calm environment promoted Oral Care: education provided * Care Plan - Leyda Greenwood RN - 11/13/2024 4:56 PM EDT Problem: Adult Inpatient Plan of Care Goal: Plan of Care Review Outcome: Ongoing, Progressing Flowsheets (Taken 11/13/20241654) Progress: no change Plan of Care Reviewed With: patient Goal: Patient-Specific Goal (Individualized) Outcome: Ongoing, Progressing Flowsheets (Taken 11/13/2024 1423) Patient/Family-Specific Goals (Include Timeframe): pt will remain free of falls/injury during shift Individualized Care Needs: saefty Anxieties, Fears or Concerns: none Goal: Absence of Hospital-Acquired Illness or Injury Outcome: Ongoing, Progressing Intervention: Identify and Manage Fall Risk Flowsheets (Taken 11/13/20241654) Safety Promotion/Fall Prevention: fall prevention program maintained nonskid shoes/slippers when out of bed toileting scheduled assistive device/personal items within reach lighting adjusted room organization consistent activity supervised clutter-free environment maintained mobility aid in reach safety round/check completed Goal: Optimal Comfort and Wellbeing Outcome: Ongoing, Progressing Problem: Fall Injury Risk Goal: Absence of Fall and Fall-Related Injury Outcome: Ongoing, Progressing Intervention: Identify and Manage Contributors Flowsheets (Taken 11/13/20241654) Medication Review/Management: medications reviewed Self-Care Promotion: independence encouraged Problem: Pain Acute Goal: Optimal Pain Control and Function Outcome: Ongoing, Progressing Intervention: Optimize Psychosocial Wellbeing Flowsheets (Taken 11/13/20241654) Supportive Measures: verbalization of feelings encouraged Spiritual Activities Assistance: affirmation provided Problem: Nausea and Vomiting Goal: Nausea and Vomiting Relief Outcome: Ongoing, Progressing Intervention: Prevent and Manage Nausea and Vomiting Flowsheets (Taken 11/13/20241654) Environmental Support: calm environment promoted * Progress Notes - Morena Gray MD - 11/13/2024 4:14 AM EDT Gynecologic Oncology Daily Progress Note Subjective NAEON. Her pain is controlled with PO medications, improved. Tolerating regular diet. Diarrhea improved, hasn't needed imodium. Voiding spontaneously. Denies fever, chills, SOA, chest pain. Review of Systems 10-point ROS performed and negative except as per HPI. Objective Temp: [36.4 ??C (97.6 ??F)-37.1 ??C (98.7 ??F)] 37.1 ??C (98.7 ??F) Heart Rate: [71-78] 73 Resp: [16] 16 BP: (113-131)/(69-75) 120/75 Vitals: 11/13/24 0359 BP: 120/75 Pulse: 73 Resp: Temp: 37.1 ??C (98.7 ??F) SpO2: 94% I/O last 3 completed shifts: In: 410 (3.7 mL/kg) [P.O.:360; IV Piggyback:50] Out: - (0 mL/kg) Weight: 110.9 kg Physical Exam: GENERAL: Alert, well-appearing, in NAD CARDIOVASCULAR: Normal rate RESPIRATORY: Normal respiratory effort on room air GASTROINTESTINAL: Soft, non-distended. GENITOURINARY: Deferred SKIN: Warm, dry, well-perfused. PSYCHIATRIC: AO x3, with appropriate affect, normal thought processes EXREMITIES: Symmetric. No peripheral edema. Labs: Lab Results Component Value Date WBC 9.57 11/13/2024 HGB 7.4 (L) 11/13/2024 HCT 23.2 (L) 11/13/2024 MCV 84 11/13/2024 PLT 228 11/13/2024 NEUTROABS 9.84 (H) 11/10/2024 GLUCOSE 95 11/13/2024 BUN 14 11/13/2024 CREATININE 1.06 11/13/2024 NA 141 11/13/2024 K 3.9 11/13/2024 CL 110 (H) 11/13/2024 CO2 21 (L) 11/13/2024 MG 2.0 11/13/2024 PHOS 3.6 11/13/2024 CALCIUM 7.9 (L) 11/13/2024 Imaging: Assessment/Plan Radha Aparicio is a 44 y.o. female with history of high grade endometroid adenocarcinoma previously admitted to Surgery for cholelithiasis. # High grade endometroid adenocarcinoma - Diagnosed 2017 after DIONNA/BSO, liver biopsy, tumor debulking with Dr. Jane for new pelvic mass with associated liver and splenic lesions -- pathology of pelvic mass and liver biopsy both consistent with high grade endometrioid adenocarcinoma - Completed 1 year of chemotherapy (carbo/tax per chart review) with Dr. Veloz at [facility] - Lost to follow up due to family matters -- planned three month scan after completion of treatment - Represented to care [address] stones, CT renal showed multiple large hepatic hypodensities measuring up to 11.3x5.3x8.9 cm with redemonstrated splenic nodule - Has since reestablished with Dr. Veloz due to redemonstration of masses -- has discussed biopsy oflesions and discussion with Dr. Jane's office, unsure if this has been completed yet - Current admission due to fever/chills, N/V, RUQ abd pain w/ inability tolerate PO intake x2 weeks. Initial concern for cholecystitis, admitted for antibiotics and obs. Symptoms improving, felt to have cholelithiasis picture based on CT findings - Denies vaginal bleeding, discharge, weight loss, or other symptoms prior to current acute episode - CT scan 11/09 significant for several large liver lesions (right dome -- [id number] (enlarged from 4.7 x 4.2) & 10.5 x 5.2 x 9.1) and posterior measuring up to 5.2 cm; splenic pericapsular lesion (7.5 x 5.0 x 7.4); borderline enlarged left para-aortic lymph nodes - Patient with acute onset pain, N/V/D, fevers at home, unclear if current clinical picture is attributable to current abdominal masses given concurrent presence of gallstones, but should consider potential for masses to cause biliary obstruction which could result in cholangitis picture explainingher symptoms on admission - Enlarging splenic and liver lesions from prior scans concerning for recurrence vs. Progressive disease (remission never documented, patient reports lesions small at conclusion of chemotherapy) - Care transferred to [facility] 11/10, s/p cefoxitin (11/08-11/10) Plan: - IR planning embolization and biopsy of hepatic lesion Sunday - CT Chest for complete assessment of disease burden when kidney function improves - Will obtain records of cancer course and treatment after last surgery for more complete history # Diarrhea (improved) - New over last 2w - C. Diff and GI panel neg - Imodium prn # JOSIAS (improved) - Cr [0.6]-1.81---1.46-1.06 - FENa prerenal - Support with IV fluids # FEN/PPX - REG/HLIV - SCDs/pLOV - Replete electrolytes PRN Dispo: continue inpatient management Thank you for including us in the care of this patient. [facility] will continue to follow. Please messageon-call [facility] resident via [employer] Secure Chat or page [phone] for questions or concerns regarding this patient's [facility] care. Morena Gray MD Obstetrics & Gynecology, PGY-2 [facility] Cosigned by Karol Jane MD at 11/14/2024 2:08 PM EDT Associated attestation - Karol Jane MD - 11/14/2024 2:08 PM EDT I saw and evaluated the patient with the resident/fellow. I discussed the case with the resident/fellow and agree with the findings and plan as documented. * Procedures - Maurice Robertson RN - 11/13/2024 2:59 AM EDTAssociated Order(s): Insert peripheral IV Insert peripheral IV Performed by: Maurice Robertson RN Authorized by: Korey Rolle MD Hand hygiene: Hand hygiene performed prior to insertion Inserted using aseptic techniques: Yes Preparation: Skin prepped with chg Orientation: Right Location: Forearm Catheter placed: Peripheral IV Catheter size: 20g/2.00in Line Technique: Ultrasound Guidance Number of attempts: 1 IV flushes: Without difficulty and positive blood return noted and IV luer locked Patient tolerance: Patient tolerated the procedure well and there were no complications Patient comfort measures used: Distraction and position of comfort IV site covered with: Transparent semipermeable dressing * Care Plan - Jennifer aGrcia - 11/12/2024 11:55 PM EDT Problem: Adult Inpatient Plan of Care Goal: Plan of Care Review Outcome: Ongoing, Progressing Flowsheets (Taken 11/12/20242351) Progress: improving Plan of Care Reviewed With: patient Goal: Patient-Specific Goal (Individualized) Outcome: Ongoing, Progressing Flowsheets (Taken 11/12/20242351) Patient/Family-Specific Goals (Include Timeframe): Patient will remain free from falls during this shift Individualized Care Needs: safety Anxieties, Fears or Concerns: Wants to go home but will be here for biopsy on sunday.. plan is to dc once back to floor from biopsy Goal: Absence of Hospital-Acquired Illness or Injury Outcome: Ongoing, Progressing Intervention: Identify and Manage Fall Risk Flowsheets (Taken 11/12/20242351) Safety Promotion/Fall Prevention: assistive device/personal items within reach nonskid shoes/slippers when out of bed mobility aid in reach lighting adjusted clutter-free environment maintained fall prevention program maintained room organization consistent safety round/check completed Intervention: Prevent Skin Injury Flowsheets (Taken 11/12/20242351) Body Position: side-lying 30 degrees weight shifting neutral body alignment neutral head position Skin Protection: incontinence pads utilized Intervention: Prevent and Manage VTE (Venous Thromboembolism) Risk Flowsheets (Taken 11/12/20242351) VTE Prevention/Management: bilateral lower extremity SCDs (sequential compression devices) on Intervention: Prevent Infection Flowsheets (Taken 11/12/2024 2352) Infection Prevention: hand hygiene promoted equipment surfaces disinfected personal protective equipment utilized rest/sleep promoted single patient room provided Goal: Optimal Comfort and Wellbeing Outcome: Ongoing, Progressing Intervention: Monitor Pain and Promote Comfort Flowsheets (Taken 11/12/2024 2352) Pain Management Interventions: pain management plan reviewed with patient/caregiver dicsex-mmg-[id number] dosing utilized Intervention: Provide Person-Centered Care Flowsheets (Taken 11/12/20242) Trust Relationship/Rapport: choices provided thoughts/feelings acknowledged * Care Plan - May Fitzpatrick RN - 11/12/2024 10:30 AM EDT Problem: Adult Inpatient Plan of Care Goal: Plan of Care Review Outcome: Ongoing, Progressing Flowsheets (Taken 11/12/2024 1028) Progress: improving Plan of Care Reviewed With: patient family Goal: Patient-Specific Goal (Individualized) Outcome: Ongoing, Progressing Flowsheets (Taken 11/12/2024 0838) Patient/Family-Specific Goals (Include Timeframe): Patient will remain free from falls/injury this shift Individualized Care Needs: Safety Anxieties, Fears or Concerns: Wants to see Dr. Jane (Oncology Attending) Goal: Absence of Hospital-Acquired Illness or Injury Outcome: Ongoing, Progressing Intervention: Prevent Infection Flowsheets (Taken 11/12/2024 1028) Infection Prevention: hand hygiene promoted rest/sleep promoted single patient room provided Goal: Optimal Comfort and Wellbeing Outcome: Ongoing, Progressing Intervention: Provide Person-Centered Care Flowsheets (Taken 11/12/2024 1028) Trust Relationship/Rapport: care explained emotional support provided empathic listening provided questions answered questions encouraged reassurance provided thoughts/feelings acknowledged Problem: Fall Injury Risk Goal: Absence of Fall and Fall-Related Injury Outcome: Ongoing, Progressing Intervention: Promote Injury-Free Environment Flowsheets (Taken 11/12/2024 0838) Safety Promotion/Fall Prevention: assistive device/personal items within reach clutter-free environment maintained fall prevention program maintained lighting adjusted mobility aid in reach nonskid shoes/slippers when out of bed room organization consistent safety round/check completed toileting scheduled Problem: Pain Acute Goal: Optimal Pain Control and Function Outcome: Ongoing, Progressing Intervention: Prevent or Manage Pain Flowsheets (Taken 11/12/2024 1028) Sensory Stimulation Regulation: television on Bowel Elimination Promotion: ambulation promoted Sleep/Rest Enhancement: consistent schedule promoted family presence promoted Medication Review/Management: medications reviewed Problem: Nausea and Vomiting Goal: Nausea and Vomiting Relief Outcome: Ongoing, Progressing Intervention: Prevent and Manage Nausea and Vomiting Flowsheets (Taken 11/12/2024 1028) Nausea/Vomiting Interventions: stimuli minimized Environmental Support: calm environment promoted rest periods encouraged * Care Plan - Jennifer Garcia - 11/12/2024 4:11 AM EDT Problem: Adult Inpatient Plan of Care Goal: Plan of Care Review Outcome: Ongoing, Progressing Flowsheets (Taken 11/12/2024408) Progress: improving Plan of Care Reviewed With: patient Goal: Patient-Specific Goal (Individualized) Outcome: Ongoing, Progressing Flowsheets (Taken 11/12/2024408) Patient/Family-Specific Goals (Include Timeframe): Patient will remain free of falls this shift Individualized Care Needs: Safety Anxieties, Fears or Concerns: Wants results of her CT Goal: Absence of Hospital-Acquired Illness or Injury Outcome: Ongoing, Progressing Intervention: Identify and Manage Fall Risk Flowsheets (Taken 11/12/2024408) Safety Promotion/Fall Prevention: assistive device/personal items within reach clutter-free environment maintained fall prevention program maintained safety round/check completed Intervention: Prevent Skin Injury Flowsheets (Taken 11/12/2024408) Body Position: weight shifting Skin Protection: incontinence pads utilized Intervention: Prevent and Manage VTE (Venous Thromboembolism) Risk Flowsheets (Taken 11/12/2024408) VTE Prevention/Management: bilateral lower extremity SCDs (sequential compression devices) on Intervention: Prevent Infection Flowsheets (Taken 11/12/2024408) Infection Prevention: environmental surveillance performed equipment surfaces disinfected hand hygiene promoted Goal: Optimal Comfort and Wellbeing Outcome: Ongoing, Progressing Intervention: Monitor Pain and Promote Comfort Flowsheets (Taken 11/12/2024408) Pain Management Interventions: pain management plan reviewed with patient/caregiver Intervention: Provide Person-Centered Care Flowsheets (Taken 11/12/2024 0409) Trust Relationship/Rapport: emotional support provided empathic listening provided questions encouraged * Progress Notes - Morena Gray MD - 11/12/2024 3:40 AM EDT Gynecologic Oncology Daily Progress Note Subjective NAEON. Her pain is controlled with PO medications, improved. Tolerating regular diet. Diarrhea improved. Voiding spontaneously. Denies fever, chills, SOA, chest pain. Review of Systems 10-point ROS performed and negative except as per HPI. Objective Temp: [36.7 ??C (98.1 ??F)-37.3 ??C (99.2 ??F)] 36.7 ??C (98.1 ??F) Heart Rate: [64-84] 64 Resp: [15-16] 15 BP: (119-126)/(61-81) 121/76 Vitals: 11/12/24 0303 BP: 121/76 Pulse: 64 Resp: 15 Temp: 36.7 ??C (98.1 ??F) SpO2: 96% I/O last 3 completed shifts: In: 908.8 (8.2 mL/kg) [P.O.:240; I.V.:668.8 (6 mL/kg)] Out: 250 (2.3 mL/kg) [Urine:250 (0.1 mL/kg/hr)] Weight: 110.9 kg Physical Exam: GENERAL: Alert, well-appearing, in NAD CARDIOVASCULAR: Normal rate RESPIRATORY: Normal respiratory effort on room air GASTROINTESTINAL: Soft, non-distended. GENITOURINARY: Deferred SKIN: Warm, dry, well-perfused. PSYCHIATRIC: AO x3, with appropriate affect, normal thought processes EXREMITIES: Symmetric. No peripheral edema. Labs: Lab Results Component Value Date WBC 11.86 (H) 11/11/2024 HGB 7.5 (L) 11/11/2024 HCT 24.0 (L) 11/11/2024 MCV 84 11/11/2024 PLT 248 11/11/2024 NEUTROABS 9.84 (H) 11/10/2024 GLUCOSE 98 11/11/2024 BUN 18 11/11/2024 CREATININE 1.46 (H) 11/11/2024 NA 142 11/11/2024 K 4.1 11/11/2024 CL 111 (H) 11/11/2024 CO2 19 (L) 11/11/2024 MG 1.8 (L) 11/11/2024 PHOS 3.0 11/11/2024 CALCIUM 8.3 (L) 11/11/2024 Imaging: CT Chest wo IV Contrast Result Date: 11/11/2024 Impression: New right basilar consolidation and small to moderate right pleural effusion. Similar appearance of the hepatic masses. CRITICAL RESULT: No. COMMUNICATION: Per this written report. Preliminary report signed by Dariusz Boyd MD on 11/11/2024 9:58 AM By electronically signing this report, I, the attending physician, attest that I have personally reviewed the images/data for the above examination(s) and agree with the final edited report. Drafted by Dariusz Boyd MD on 11/11/2024 9:44 AM Finalreport signed by Jan Alfonso MD on 11/11/2024 10:17 AM Assessment/Plan Radha Aparicio is a 44 y.o. female with history of high grade endometroid adenocarcinoma previously admitted to Surgery for cholelithiasis. # High grade endometroid adenocarcinoma - Diagnosed 2018 after DIONNA/BSO, liver biopsy, tumor debulking with Dr. Jane for new pelvic mass with associated liver and splenic lesions -- pathology of pelvic mass and liver biopsy both consistent with high grade endometrioid adenocarcinoma - Completed 1 year of chemotherapy (carbo/tax per chart review) with Dr. Veloz at [facility] - Lost to follow up due to family matters -- planned three month scan after completion of treatment - Represented to care [address] stones, CT renal showed multiple large hepatic hypodensities measuring up to 11.3x5.3x8.9 cm with redemonstrated splenic nodule - Has since reestablished with Dr. Veloz due to redemonstration of masses -- has discussed biopsy oflesions and discussion with Dr. Jane's office, unsure if this has been completed yet - Current admission due to fever/chills, N/V, RUQ abd pain w/ inability tolerate PO intake x2 weeks. Initial concern for cholecystitis, admitted for antibiotics and obs. Symptoms improving, felt to have cholelithiasis picture based on CT findings - Denies vaginal bleeding, discharge, weight loss, or other symptoms prior to current acute episode - CT scan 11/09 significant for several large liver lesions (right dome -- [id number] (enlarged from 4.7 x 4.2) & 10.5 x 5.2 x 9.1) and posterior measuring up to 5.2 cm; splenic pericapsular lesion (7.5 x 5.0 x 7.4); borderline enlarged left para-aortic lymph nodes - Patient with acute onset pain, N/V/D, fevers at home, unclear if current clinical picture is attributable to current abdominal masses given concurrent presence of gallstones, but should consider potential for masses to cause biliary obstruction which could result in cholangitis picture explainingher symptoms on admission - Enlarging splenic and liver lesions from prior scans concerning for recurrence vs. Progressive disease (remission never documented, patient reports lesions small at conclusion of chemotherapy) - Care transferred to [facility] 11/10, s/p cefoxitin (11/08-11/10) Plan: - IR planning embolization and biopsy of hepatic lesion Sunday - CT Chest for complete assessment of disease burden when kidney function improves - Will obtain records of cancer course and treatment after last surgery for more complete history # Diarrhea - New over last 2w - C. Diff and GI panel neg - Imodium prn # JOSIAS - Cr [0.6]-1.81---1.46 - FENa prerenal - Support with IV fluids # FEN/PPX - REG/HLIV - SCDs/pLOV held - Replete electrolytes PRN Dispo: continue inpatient management Thank you for including us in the care of this patient. [facility] will continue to follow. Please messageon-call [facility] resident via [employer] Secure Chat or page [phone] for questions or concerns regarding this patient's [facility] care. Morena Gray MD Obstetrics & Gynecology, PGY-2 [facility] Cosigned by Karol Jane MD at 11/12/2024 8:11 AM EDT Associated attestation - Karol Jane MD - 11/12/2024 8:11 AM EDT I saw and evaluated the patient with the resident/fellow. I discussed the case with the resident/fellow and agree with the findings and plan as documented. * Progress Notes - Radha Langston RN - 11/11/2024 11:50 AM EDT Case Management Adult Initial Progress Note Radha Aparicio 44 y.o. female CSN: [id number] Admission: 11/08/2024 11:13 AM Primary Problem: Calculus of gallbladder without cholecystitis without obstruction Hat Braider reviewed chart and spoke with patient to complete this Initial Case Management Assessment. PCP: Dr. Benny Gonzalez Emergency Contact: Extended Emergency Contact Information Primary Emergency Contact: Kaushal Aparicio Mobile Relation: Brother Preferred language: Dominican Brusher Operator needed? No Insurance: Primary Visit Coverage Payer Plan Sponsor Code Group Number Group Name [employer] [facility] . Primary Visit Coverage Subscriber Subscriber ID Subscriber Name Subscriber N Subscriber Address [id number] RADHA APARICIO [id number] [place] [address] Patient information: admit to with history of high grade endometroid adenocarcinoma previously admitted to Surgery for cholelithiasis. Confirmed home address and insurance information. Reports home assistance and transport. Pharmacy: [facility] Accompanied by/Relationship: aunt Jennifer and Clara at bedside for visit. Support System: Immediate family Daily Living Activities: Functional Status: Independent Living Arrangements: Parent/[place]on[place]anan (reports she lives with her dad Conor) Type of Residence: Private residence [address] [place] [address] Current DME: Equipment Currently Used at Home: none Income Information: Income Source: Unemployed Income/Expense Information: Income meets expenses Current Resources Utilized: None Housing Circumstances-Z Codes: Housing Circumstances (select all that apply): Low Income (101-300% Federal Poverty Guidlines) - Z596 Patient Referred to: n/a Anticipated Discharge Date: 2-4 day Patient's Discharge Goal: home Assistance Available at Discharge: self/family Discharge Transport: family Follow Up Transport: family Home Health / Home Infusion / Outpatient Dialysis Services: none Living Will/Advance Directive/Power of Public Safety Officer /Guardian: none Advance Directive: Not applicable Information Provided on Healthcare Directives: No Pre-existing DNR/DNI Order: No Patient Requests Assistance: No Additional Comments: per team, not medically ready for discharge. IR pending plan on 11.14 for embolization /biopsy. 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 female with history of endometrial cancer with possible metastasisto the liver presenting to [facility] on 11/08/[facility]24 with one week of nausea, vomiting, anorexia, and RUQ pain. US and CT demonstrated cholelithiasis and increase in interval of her liver metastaticlesion. Interval: VSS. AF. Doing well. Stilll has abdomen pain but toerabe. Able to eat and drinki Encouraged to ambulate Edited by: Socrates Garnica MD at 11/11/2024 0716 Relevant review of systems was obtained as able and is negative unless stated above in HPI. Vital signs: Vitals: 11/11/24 1129 BP: 119/74 Pulse: 75 Resp: Temp: 37.1 ??C (98.7 ??F) SpO2: 95% Physical Exam Vitals and nursing note reviewed. Constitutional: Appearance: Normal appearance. HENT: Head: Normocephalic and atraumatic. Right Ear: External ear normal. Left Ear: External ear normal. Nose: Nose normal. Mouth/Throat: Mouth: Mucous membranes are moist. Pharynx: Oropharynx is clear. Eyes: Extraocular Movements: Extraocular movements intact. Pulmonary: Effort: Pulmonary effort is normal. No respiratory distress. Abdominal: General: Abdomen is flat. Palpations: Abdomen is soft. Tenderness: There is abdominal tenderness (RUQ). There is no guarding or rebound. Musculoskeletal: General: Normal range of motion. Cervical back: Normal range of motion and neck supple. Skin: General: Skin is warm and dry. Capillary Refill: Capillary refill takes less than 2 seconds. Neurological: General: No focal deficit present. Mental Status: She is alert and oriented to person, place, and time. Psychiatric: Mood and Affect: Mood normal. Behavior: Behavior normal. Intake/Output Summary (Last 24 hours) at 11/11/2024 1129 Last data filed at 11/11/2024 0100 Gross per 24 hour Intake 2490 ml Output -- Net 2490 ml Lines/Drains/Tubes: Patient Lines/Drains/Airways Status Active Airway None Output by Drain (mL) 11/09/24 07 - 11/09/24 1859 11/09/24 190 - 11/10/24 0659 11/10/24 07 - 11/10/24 1859 11/10/24 1900 - 11/11/24 0659 11/11/24 07 - 11/11/24 1129 Patient has no LDAs of requested type attached. Labs in last 18 hours: CBC WBC 11.86 (H) Hb 7.5 (L) Plt 248 Hct 24.0 (L) ANC ?? INR ??, PTT ??, Anti-Xa ?? MCV 84 BMP Na 142 Cl 111 (H) BUN 18 Glu 98 K 4.1 Co2 19 (L) Cr 1.46 (H) Ca 8.3 (L) iCa ?? Mg 1.8 (L), Phos 3.0 Lactate ?? LFT AST 61 (H) AlkPhos 238 (H) T Prot 6.0 (L) ALK 29 Bili 0.5 Alb ?? D.Bili ?? Lab Trends: H/H Results from last 7 days Lab Units 11/11/24 0332 11/10/24 0549 11/09/24 0204 HEMOGLOBIN g/dL 7.5* 7.5* 7.4* HEMATOCRIT % 24.0* 23.4* 22.8* INR Results from last 7 days Lab Units 11/08/24 1312 INR 1.3* Cr Results from last 7 days Lab Units 11/11/24 0332 11/10/24 1030 11/10/24 0549 CREATININE mg/dL 1.46* 1.53* 1.76* Medications reviewed. Vital signs reviewed. Labs reviewed. Radiography reviewed. 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 Morelia Galvez MD, FACS mill attendant Trauma Acute Care Surgery * Care Plan - May Fitzpatrick RN - 11/11/2024 11:15 AM EDT Problem: Adult Inpatient Plan of Care Goal: Plan of Care Review Outcome: Ongoing, Progressing Flowsheets (Taken 11/11/20241112) Progress: no change Plan of Care Reviewed With: patient Goal: Patient-Specific Goal (Individualized) Outcome: Ongoing, Progressing Flowsheets (Taken 11/11/2024825) Patient/Family-Specific Goals (Include Timeframe): Patient will remain free from falls/injury this shift Individualized Care Needs: Safety Anxieties, Fears or Concerns: Wants to speak to Oncology doctor Goal: Absence of Hospital-Acquired Illness or Injury Outcome: Ongoing, Progressing Intervention: Prevent Infection Flowsheets (Taken 11/11/2024 111) Infection Prevention: hand hygiene promoted rest/sleep promoted single patient room provided Goal: Optimal Comfort and Wellbeing Outcome: Ongoing, Progressing Intervention: Provide Person-Centered Care Flowsheets (Taken 11/11/2024825) Trust Relationship/Rapport: care explained emotional support provided empathic listening provided questions answered questions encouraged thoughts/feelings acknowledged Problem: Fall Injury Risk Goal: Absence of Fall and Fall-Related Injury Outcome: Ongoing, Progressing Intervention: Promote Injury-Free Environment Flowsheets (Taken 11/11/2024 0800) Safety Promotion/Fall Prevention: assistive device/personal items within reach clutter-free environment maintained fall prevention program maintained lighting adjusted mobility aid in reach nonskid shoes/slippers when out of bed room organization consistent safety round/check completed Problem: Pain Acute Goal: Optimal Pain Control and Function Outcome: Ongoing, Progressing Intervention: Prevent or Manage Pain Flowsheets (Taken 11/11/2024 1113) Sensory Stimulation Regulation: quiet environment promoted care clustered Bowel Elimination Promotion: privacy promoted Sleep/Rest Enhancement: consistent schedule promoted family presence promoted Medication Review/Management: medications reviewed Problem: Electrolyte Imbalance Goal: Electrolyte Balance Outcome: Met Problem: Nausea and Vomiting Goal: Nausea and Vomiting Relief Outcome: Ongoing, Progressing Intervention: Prevent and Manage Nausea and Vomiting Flowsheets (Taken 11/11/2024 1113) Nausea/Vomiting Interventions: slow deep breathing encouraged stimuli minimized Environmental Support: personal routine supported rest periods encouraged * Progress Notes - Morena Gray MD - 11/11/2024 5:30 AM EDT Gynecologic Oncology Daily Progress Note Subjective NAEON. Her pain is controlled with PO medications, improved. Tolerating regular diet. Passing flatus. Voiding spontaneously. Denies fever, chills, SOA, chest pain. Review of Systems 10-point ROS performed and negative except as per HPI. Objective Temp: [36.6 ??C (97.9 ??F)-37 ??C (98.6 ??F)] 36.7 ??C (98 ??F) Heart Rate: [76-116] 76 Resp: [15-17] 16 BP: (122-138)/(71-87) 122/78 Vitals: 11/11/24 0317 BP: 122/78 Pulse: 76 Resp: 16 Temp: 36.7 ??C (98 ??F) SpO2: 94% I/O last 3 completed shifts: In: 4565 (41.2 mL/kg) [P.O.:1320; I.V.:3045 (27.5 mL/kg); IV Piggyback:200] Out: 500 (4.5 mL/kg) [Urine:500 (0.2 mL/kg/hr)] Weight: 110.9 kg Physical Exam: GENERAL: Alert, well-appearing, in NAD CARDIOVASCULAR: Normal rate RESPIRATORY: Normal respiratory effort on room air GASTROINTESTINAL: Soft, non-distended. GENITOURINARY: Deferred SKIN: Warm, dry, well-perfused. PSYCHIATRIC: AO x3, with appropriate affect, normal thought processes EXREMITIES: Symmetric. No peripheral edema. Labs: Lab Results Component Value Date WBC 11.86 (H) 11/11/2024 HGB 7.5 (L) 11/11/2024 HCT 24.0 (L) 11/11/2024 MCV 84 11/11/2024 PLT 248 11/11/2024 NEUTROABS 9.84 (H) 11/10/2024 GLUCOSE 98 11/11/2024 BUN 18 11/11/2024 CREATININE 1.46 (H) 11/11/2024 NA 142 11/11/2024 K 4.1 11/11/2024 CL 111 (H) 11/11/2024 CO2 19 (L) 11/11/2024 MG 1.8 (L) 11/11/2024 PHOS 3.0 11/11/2024 CALCIUM 8.3 (L) 11/11/2024 Imaging: Assessment/Plan Radha Aparicio is a 44 y.o. female with history of high grade endometroid adenocarcinoma previously admitted to Surgery for cholelithiasis. # High grade endometroid adenocarcinoma - Diagnosed 2017 after DIONNA/BSO, liver biopsy, tumor debulking with Dr. Jane for new pelvic mass with associated liver and splenic lesions -- pathology of pelvic mass and liver biopsy both consistent with high grade endometrioid adenocarcinoma - Completed 1 year of chemotherapy (carbo/tax per chart review) with Dr. Velzo at [facility] - Lost to follow up due to family matters -- planned three month scan after completion of treatment - Represented to care [address] stones, CT renal showed multiple large hepatic hypodensities measuring up to 11.3x5.3x8.9 cm with redemonstrated splenic nodule - Has since reestablished with Dr. Veloz due to redemonstration of masses -- has discussed biopsy oflesions and discussion with Dr. Jane's office, unsure if this has been completed yet - Current admission due to fever/chills, N/V, RUQ abd pain w/ inability tolerate PO intake x2 weeks. Initial concern for cholecystitis, admitted for antibiotics and obs. Symptoms improving, felt to have cholelithiasis picture based on CT findings - Denies vaginal bleeding, discharge, weight loss, or other symptoms prior to current acute episode - CT scan 11/09 significant for several large liver lesions (right dome -- [id number] (enlarged from 4.7 x 4.2) & 10.5 x 5.2 x 9.1) and posterior measuring up to 5.2 cm; splenic pericapsular lesion (7.5 x 5.0 x 7.4); borderline enlarged left para-aortic lymph nodes - Patient with acute onset pain, N/V/D, fevers at home, unclear if current clinical picture is attributable to current abdominal masses given concurrent presence of gallstones, but should consider potential for masses to cause biliary obstruction which could result in cholangitis picture explainingher symptoms on admission - Enlarging splenic and liver lesions from prior scans concerning for recurrence vs. Progressive disease (remission never documented, patient reports lesions small at conclusion of chemotherapy) - Care transferred to [facility] 11/10, s/p cefoxitin (11/08-11/10) Plan: - IR planning embolization and biopsy of hepatic lesion Sunday - CT Chest for complete assessment of disease burden when kidney function improves - Will obtain records of cancer course and treatment after last surgery for more complete history # JOSIAS - Cr [0.6]-1.81---1.46 - FENa prerenal - Support with IV fluids # FEN/PPX - NPO(REG if no procedure)/LR @125 - SCDs/pLOV held - Replete electrolytes PRN Dispo: continue inpatient management Thank you for including us in the care of this patient. [facility] will continue to follow. Please messageon-call [facility] resident via [employer] Secure Chat or page [phone] for questions or concerns regarding this patient's [facility] care. Morena Gray MD Obstetrics & Gynecology, PGY-2 [facility] Cosigned by Korey Rolle MD at 11/11/2024 8:47 AM EDT Associated attestation - Korey Rolle MD - 11/11/2024 8:47 AM EDT I saw and evaluated the patient with the resident/fellow. I discussed the case with the resident/fellow and agree with the findings and plan as documented. * Care Plan - Jennifer Garcia - 11/10/2024 11:13 PM EDT Problem: Adult Inpatient Plan of Care Goal: Plan of Care Review Outcome: Ongoing, Progressing Flowsheets (Taken 11/10/20242309) Progress: no change Plan of Care Reviewed With: patient Goal: Patient-Specific Goal (Individualized) Outcome: Ongoing, Progressing Flowsheets (Taken 11/10/20242309) Patient/Family-Specific Goals (Include Timeframe): patient to remain free of falls during this shift Individualized Care Needs: safety Anxieties, Fears or Concerns: safety Goal: Absence of Hospital-Acquired Illness or Injury Outcome: Ongoing, Progressing Intervention: Identify and Manage Fall Risk Flowsheets (Taken 11/10/20242309) Safety Promotion/Fall Prevention: lighting adjusted nonskid shoes/slippers when out of bed room organization consistent fall prevention program maintained Intervention: Prevent Skin Injury Flowsheets (Taken 11/10/20242309) Body Position: weight shifting Skin Protection: incontinence pads utilized Intervention: Prevent and Manage VTE (Venous Thromboembolism) Risk Flowsheets (Taken 11/10/20242309) VTE Prevention/Management: bilateral lower extremity SCDs (sequential compression devices) on Intervention: Prevent Infection Flowsheets (Taken 11/10/20242309) Infection Prevention: hand hygiene promoted Goal: Optimal Comfort and Wellbeing Outcome: Ongoing, Progressing Intervention: Monitor Pain and Promote Comfort Flowsheets (Taken 11/10/20242309) Pain Management Interventions: medication (see MAR) [id number] dosing utilized pain management plan reviewed with patient/caregiver Intervention: Provide Person-Centered Care Flowsheets (Taken 11/10/20242309) Trust Relationship/Rapport: care explained empathic listening provided * Transfer of Care - Socrates Garnica MD - 11/10/2024 2:33 PM EDT Radha Aparicio is a 44 y.o. female with history of endometrial cancer with possible metastasisto the liver presenting to [facility] on 11/08/2024 with one week of nausea, vomiting, anorexia, and RUQ pain. US and CT demonstrated cholelithiasis and increase in interval of her liver metastaticlesion. Interval: VSS. AF. She continues to have RUQ pain though improved today. States that she continues to have nausea but currently no vomiting. Has been able to tolerate some small food by mouth today. Will transfer care to [facility] today given patient history and clinical picture. Patient tolerating PO at time of transfer. Javier Garnica MD PGY-1, [facility] * Assessment & Plan Note - Morelia Galvez MD - 11/10/2024 1:52 PM EDT Associated Problem(s): Calculus of gallbladder without cholecystitis without obstruction - WBC of 13 - Cholelithiasis noted on RUQ US - Lactate 1.5 - NPO * Assessment & Plan Note - Morelia Galvez MD - 11/10/2024 1:52 PM EDT Associated Problem(s): H/O cholelithiasis Does not appear to be symptomatic or causing cholecystitis * Assessment & Plan Note - Morelia Galvez MD - 11/10/2024 1:52 PM EDT Associated Problem(s): Endometrial cancer [facility] consultation * Progress Notes - Socrates Garnica MD - 11/10/2024 11:20 AM EDT 11/10/24 Radha Stockn Markus is a 44 y.o. female with history of endometrial cancer with possible metastasisto the liver presenting to [facility] on 11/08/2024 with one week of nausea, vomiting, anorexia, and RUQ pain. US and CT demonstrated cholelithiasis and increase in interval of her liver metastaticlesion. Interval: VSS. AF. She continues to have RUQ pain though improved today. States that she continues to have nausea but currently no vomiting. Has been able to tolerate some small food. Likely not gallbladder related. [facility] consulted due to increase in size of liver meds from endometrial cancer. Encouraged to ambulate Edited by: Socrates Garnica MD at 11/10/2024 1119 Relevant review of systems was obtained as able and is negative unless stated above in HPI. Vital signs: Vitals: 11/10/24 0818 BP: 127/72 Pulse: 78 Resp: Temp: 36.9 ??C (98.4 ??F) SpO2: 92% Physical Exam Vitals and nursing note reviewed. Constitutional: Appearance: Normal appearance. HENT: Head: Normocephalic and atraumatic. Right Ear: External ear normal. Left Ear: External ear normal. Nose: Nose normal. Mouth/Throat: Mouth: Mucous membranes are moist. Pharynx: Oropharynx is clear. Eyes: Extraocular Movements: Extraocular movements intact. Pulmonary: Effort: Pulmonary effort is normal. No respiratory distress. Abdominal: General: Abdomen is flat. Palpations: Abdomen is soft. Tenderness: There is abdominal tenderness (RUQ). There is no guarding or rebound. Musculoskeletal: General: Normal range of motion. Cervical back: Normal range of motion and neck supple. Skin: General: Skin is warm and dry. Capillary Refill: Capillary refill takes less than 2 seconds. Neurological: General: No focal deficit present. Mental Status: She is alert and oriented to person, place, and time. Psychiatric: Mood and Affect: Mood normal. Behavior: Behavior normal. Intake/Output Summary (Last 24 hours) at 11/10/2024 1120 Last data filed at 11/10/2024 0615 Gross per 24 hour Intake 2983.75 ml Output 900 ml Net 2083.75 ml Lines/Drains/Tubes: Patient Lines/Drains/Airways Status Active Airway None Output by Drain (mL) 11/08/24 0700 - 11/08/24 1859 11/08/24 1900 - 11/09/24 0659 11/09/24 0700 - 11/09/24 1859 11/09/24 1900 - 11/10/24 0659 11/10/24 0700 - 11/10/24 1120 Patient has no LDAs of requested type attached. Labs in last 18 hours: CBC WBC 12.70 (H) Hb 7.5 (L) Plt 260 Hct 23.4 (L) ANC 9.84 (H) INR ??, PTT ??, Anti-Xa ?? MCV 83 BMP Na 138 Cl 107 BUN 20 Glu 105 (H) K 3.3 (L) Co2 19 (L) Cr 1.76 (H) Ca 8.0 (L) iCa ?? Mg 2.1, Phos 3.1 Lactate ?? LFT AST ?? AlkPhos ?? T Prot ?? ALK ?? Bili ?? Alb ?? D.Bili ?? Lab Trends: H/H Results from last 7 days Lab Units 11/10/24 0549 11/09/24 0204 11/08/24 1312 HEMOGLOBIN g/dL 7.5* 7.4* 9.1* HEMATOCRIT % 23.4* 22.8* 27.9* INR Results from last 7 days Lab Units 11/08/24 1312 INR 1.3* Cr Results from last 7 days Lab Units 11/10/24 0549 11/09/24 0204 11/08/24 1312 CREATININE mg/dL 1.76* 1.81* 1.64* Medications reviewed. Vital signs reviewed. Labs reviewed. Radiography reviewed. 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 I discussed the case with the resident/fellow and agree with the findings and plan as documented. Patient does not require operative intervention for her gallbladder. There is no evidence of acute cholecystitis. And I am not convinced that this gallstone is the cause of her right upper quadrant abdominal pain and that this is symptomatic cholelithiasis. We appreciate the gynecology oncology service recommendations. Morelia Galvez MD, FACS mill attendant Trauma Acute Care Surgery * Consults - Michelle Ramos MD - 11/10/2024 10:11 AM EDTAssociated Order(s): IP CONSULT TO INTERVENTIONAL RADIOLOGY 11/10/24 Patient: Radha Aparicio Date of : 1980/44 y.o. Requesting Service: [employer] Chief complaint Abdominal pain and increase in the size of the metastatic hepatic lesions History Of Present Illness Radha Aparicio is a 44 y.o. female presenting with abdominal pain, nausea and vomiting since 1week. She has a history of high grade endometrial cancer, discovered in 2017, with splenic and hepatic metastasis (previously biopsied) at the time, previously regressing on chemotherapy with the last control done in June 2023 demonstrating a re-increase in the size of the hepatic lesions. The CT scan done during this admission to the ER, showed a major increase in the size of the hepatic lesions at segments VII and VIII. IR were consulted for re-biopsy of the hepatic lesions. History and admission information obtained from chart review of primary and consulting teams notation , as well as speaking directly to consulting team. The following portions of the chart were reviewed this encounter and updated as appropriate: Review of Systems: 14 point ROS negative except for above. Medical/Surgical/Social/Family History Past Medical History[1] Surgical History[2] Social History[3] Family History[4] Allergies Carboplatin Objective: All laboratory, images, tracings, and vital sign data are personally reviewed unless otherwise noted. VITALS: Temp: [36.4 ??C (97.5 ??F)-38 ??C (100.4 ??F)] 36.9 ??C (98.4 ??F) Heart Rate: [73-111] 78 Resp: [15-16] 16 BP: (113-145)/(56-85) 127/72 Weight: 111 kg (245 lb) Body mass index is 36.1 kg/m??. I & O SUMMARY I/O last 3 completed shifts: In: 3971.7 (35.8 mL/kg) [P.O.:770; I.V.:2297.5 (20.7 mL/kg); IV Piggyback:904.2] Out: 1100 (9.9 mL/kg) [Urine:1100 (0.3 mL/kg/hr)] Weight: 110.9 kg No intake/output data recorded. MEDICATIONS: Current Medications[5] Results Review I have reviewed the latest lab and imaging results. The most significant being as follows: - as compared to the previous CT scans, the Ct scan at admission shows a tremendous increase in thesize most cranial hepatic mass (segment VIII) measuring today 15 cm in the long axial diameter vs 5cm on the previous exam with linear intralesional hyperdensities. Meanwhile the second hepatic lesions and the splenic lesion has only moderately increased in size despite showing a more important soft tissue component on the previous exams (as compared to the mostcystic nature of the most cranial hepatic dome lesion). Borderline retroperitoneal lymph nodes and right pleural effusion. - The bilirubin is normal (1) EXAM: Deferred. 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 lady with history of high grade metastatic endometrial cancer with hepatic, splenic and LN metastasis since 2017, previously regressing under chemotherapy until 2023, presenting for 1 week ofabdominal pain, nausea and vomiting. CT scan at admission showed a non proportional increase in the size of the hepatic dome lesions (the most cranial lesion: 15 cm vs 5 cm in 2023, the most anterior and inferior lesion: 10 cm vs 8 cm in 202) despite the predominantly cystic component of the most cranial lesion. This is concerning for intratumoral hemorrhage. - INR ??, PTT ??, Plt 260, Tim 1 - Personally reviewed imaging, labs and charts - VSS, Afebrile PLAN: - Will perform bland embolization and re-biopsy of the hepatic lesion Sunday afternoon with Dr Nava (room IR10). - primary team to add any genetic tests id needed on biopsy. - keep patient NPO after midnight on - Hold anticoagulation. Case discussed with attending physician, Dr Franko Nava. Thank you for allowing us to participate in the care of this patient. Michelle Ramos MD Interventional Radiology [phone] [1] Past Medical History: Diagnosis Date Disease of salivary gland, unspecified Parotid mass [2] Past Surgical History: Procedure Laterality Date HYSTERECTOMY N/A Hysterectomy from [facility] TUBAL LIGATION N/A Tubal ligation from [facility] [3] Social History Tobacco Use Smoking status: Every Day [4] Family History Problem Relation Name Age of Onset Bone cancer Paternal Grandfather Family history of bone cancer Hypertension Father Family history of hypertension Breast cancer Paternal Grandmother FH: breast cancer Breast cancer Maternal Grandmother FH: breast cancer Throat cancer Other FH: throat cancer Throat cancer Other FH: throat cancer [5] Current Facility-Administered Medications: acetaminophen (Tylenol) tablet 1,000 mg, 1,000 mg, Oral, q6h PRN, Tobias Alford MD, 1,000 mg at 11/09/24 0026 calcium carbonate (Tums) chewable tablet 500 mg, 500 mg, Oral, Daily, Morelia Galvez MD, 500 mg at 11/10/24 1005 cefOXitin (Mefoxin) 2 g in sodium chloride 0.9% 100 mL IVPB (vial adapter required), 2 g, Intravenous, q6h, Yunier Gamino MD, Last Rate: 220 mL/hr at 11/10/24 0615, 2 g at 11/10/24 0615 lactated Ringer's infusion, 75 mL/hr, Intravenous, Continuous, Yunier Gamino MD, Stopped at 11/09/24 1438 metoclopramide (Reglan) tablet 5 mg, 5 mg, Oral, q6h PRN, 5 mg at 11/09/24 1548 OR metoclopramide (Reglan) injection 5 mg, 5 mg, Intravenous, q6h PRN, Ayan Fuentes MD ondansetron ODT (Zofran-ODT) disintegrating tablet 4 mg, 4 mg, Oral, q6h PRN, 4 mg at 11/09/242027OR ondansetron (Zofran) injection 4 mg, 4 mg, Intravenous, q6h PRN, 4 mg at 11/10/24 0622 OR ondansetron (Zofran) 4 MG/5ML solution 4 mg, 4 mg, Oral, q6h PRN, Yunier Gamino MD [COMPLETED] Insert peripheral IV, , , Once AND [COMPLETED] Saline lock IV, , , Once AND sodium chloride 0.9 % flush 10 mL, 10 mL, Intravenous, q12h, 10 mL at 11/10/24 0614 AND sodium chloride 0.9 % flush 10 mL, 10 mL, Intravenous, PRN, Yunier Gamino MD Cosigned by Franko Nava MD at 11/10/2024 10:51 PM EDT * Care Plan - Mp Daly RN - 11/10/2024 9:00 AM EDT Problem: Adult Inpatient Plan of Care Goal: Plan of Care Review Outcome: Ongoing, Progressing Flowsheets (Taken 11/10/2024899) Progress: no change Plan of Care Reviewed With: patient family Goal: Patient-Specific Goal (Individualized) Outcome: Ongoing, Progressing Flowsheets (Taken 11/10/2024899) Patient/Family-Specific Goals (Include Timeframe): Patient verbalized that she will be getting antiemetic and non pharmacological interventions prn for nausea. Individualized Care Needs: Nausea management Anxieties, Fears or Concerns: Nausea Goal: Absence of Hospital-Acquired Illness or Injury Outcome: Ongoing, Progressing Intervention: Prevent Infection Flowsheets (Taken 11/10/2024899) Infection Prevention: hand hygiene promoted personal protective equipment utilized rest/sleep promoted single patient room provided Goal: Optimal Comfort and Wellbeing Outcome: Ongoing, Progressing Intervention: Provide Person-Centered Care Flowsheets (Taken 11/10/2024899) Trust Relationship/Rapport: choices provided care explained emotional support provided empathic listening provided questions answered questions encouraged reassurance provided thoughts/feelings acknowledged Problem: Fall Injury Risk Goal: Absence of Fall and Fall-Related Injury Outcome: Ongoing, Progressing Intervention: Promote Injury-Free Environment Flowsheets (Taken 11/10/2024899) Safety Promotion/Fall Prevention: activity supervised assistive device/personal items within reach clutter-free environment maintained lighting adjusted mobility aid in reach nonskid shoes/slippers when out of bed room organization consistent safety round/check completed toileting scheduled fall prevention program maintained Problem: Pain Acute Goal: Optimal Pain Control and Function Outcome: Ongoing, Progressing Intervention: Optimize Psychosocial Wellbeing Flowsheets (Taken 11/10/2024899) Supportive Measures: active listening utilized decision-making supported mindfulness techniques promoted relaxation techniques promoted self-care encouraged verbalization of feelings encouraged Diversional Activities: smartphone television Problem: Electrolyte Imbalance Goal: Electrolyte Balance Outcome: Ongoing, Progressing Intervention: Monitor and Manage Electrolyte Imbalance Flowsheets (Taken 11/10/2024899) Fluid/Electrolyte Management: intravenous fluids adjusted fluids provided Problem: Nausea and Vomiting Goal: Nausea and Vomiting Relief Outcome: Ongoing, Progressing Intervention: Prevent and Manage Nausea and Vomiting Flowsheets (Taken 11/10/2024 0900) Fluid/Electrolyte Management: intravenous fluids adjusted fluids provided Nausea/Vomiting Interventions: sips of clear liquids given slow deep breathing encouraged Environmental Support: calm environment promoted personal routine supported rest periods encouraged * Assessment & Plan Note - Morelia Galvez MD - 11/10/2024 7:11 AM EDT Associated Problem(s): Calculus of gallbladder without cholecystitis without obstruction - WBC of 13 - Cholelithiasis noted on RUQ US - Lactate 1.5 - NPO * Progress Notes - Morena Gray MD - 11/10/2024 5:03 AM EDT Gynecologic Oncology Daily Progress Note Subjective NAEON. Her pain is controlled with PO medications, improved. Tolerating regular diet. Will have some episodes of dry heaving but no actual emesis. Passing flatus. Voiding spontaneously. Denies fever,chills, SOA, chest pain. Review of Systems 10-point ROS performed and negative except as per HPI. Objective Temp: [36.3 ??C (97.4 ??F)-38 ??C (100.4 ??F)] 37.6 ??C (99.6 ??F) Heart Rate: [71-111] 89 Resp: [15-17] 16 BP: (97-145)/(56-85) 127/78 Vitals: 11/10/24 0322 BP: 127/78 Pulse: 89 Resp: 16 Temp: 37.6 ??C (99.6 ??F) SpO2: 92% I/O last 3 completed shifts: In: 987.9 (8.9 mL/kg) [P.O.:50; I.V.:233.8 (2.1 mL/kg); IV Piggyback:704.2] Out: 600 (5.4 mL/kg) [Urine:600 (0.2 mL/kg/hr)] Weight: 111.1 kg Physical Exam: GENERAL: Alert, well-appearing, in NAD CARDIOVASCULAR: Normal rate RESPIRATORY: Normal respiratory effort on room air GASTROINTESTINAL: Soft, non-distended. GENITOURINARY: Deferred SKIN: Warm, dry, well-perfused. PSYCHIATRIC: AO x3, with appropriate affect, normal thought processes EXREMITIES: Symmetric. No peripheral edema. Labs: Lab Results Component Value Date WBC 12.51 (H) 11/09/2024 HGB 7.4 (L) 11/09/2024 HCT 22.8 (L) 11/09/2024 MCV 83 11/09/2024 PLT 261 11/09/2024 NEUTROABS 11.14 (H) 11/08/2024 GLUCOSE 96 11/09/2024 BUN 21 11/09/2024 CREATININE 1.81 (H) 11/09/2024 NA 139 11/09/2024 K 3.0 (L) 11/09/2024 CL 104 11/09/2024 CO2 19 (L) 11/09/2024 MG 1.7 (L) 11/09/2024 PHOS 3.9 11/09/2024 CALCIUM 8.3 (L) 11/09/2024 Imaging: CT Abdomen Pelvis w IV Contrast Result Date: 11/09/2024 Impression: Interval increase size of liver lesions and splenic metastatic lesions compared to prior CT from 2023 Redemonstration of borderline retroperitoneal lymph nodes, which are slightly increased in size Small right pleural effusion and adjacent atelectasis. Minimal left basilar atelectasis Ch olelithiasis without CT evidence of cholecystitis. CRITICAL RESULT: No. COMMUNICATION: Per this written report. By electronically signing this report, I, the attending physician, attest that I have personally reviewed the images/data for the above examination(s) and agree with the final edited report. Drafted by Tio East MD on 11/09/2024 8:58 AM Final report signed by Jan Alfonso MD on 11/09/2024 10:03 AM Assessment/Plan Radha Aparicio is a 44 y.o. female with history of high grade endometroid adenocarcinoma admitted to Surgery for work up of cholelithiasis. # High grade endometroid adenocarcinoma - Diagnosed 2018 after DIONNA/BSO, liver biopsy, tumor debulking with Dr. Jane for new pelvic mass with associated liver and splenic lesions -- pathology of pelvic mass and liver biopsy both consistent with high grade endometrioid adenocarcinoma - Completed 1 year of chemotherapy (carbo/tax per chart review) with Dr. Veloz at [facility] - Lost to follow up due to family matters -- planned three month scan after completion of treatment - Represented to care [address] stones, CT renal showed multiple large hepatic hypodensities measuring up to 11.3x5.3x8.9 cm with redemonstrated splenic nodule - Has since reestablished with Dr. Veloz due to redemonstration of masses -- has discussed biopsy oflesions and discussion with Dr. Jane's office, unsure if this has been completed yet - Current admission due to fever/chills, N/V, RUQ abd pain w/ inability tolerate PO intake x2 weeks. Initial concern for cholecystitis, admitted for antibiotics and obs. Symptoms improving, felt to have cholelithiasis picture based on CT findings - Denies vaginal bleeding, discharge, weight loss, or other symptoms prior to current acute episode - CT scan 11/09 significant for several large liver lesions (right dome -- [id number] (enlarged from 4.7 x 4.2) & 10.5 x 5.2 x 9.1) and posterior measuring up to 5.2 cm; splenic pericapsular lesion (7.5 x 5.0 x 7.4); borderline enlarged left para-aortic lymph nodes - Patient with acute onset pain, N/V/D, fevers at home, unclear if current clinical picture is attributable to current abdominal masses given concurrent presence of gallstones, but should consider potential for masses to cause biliary obstruction which could result in cholangitis picture explainingher symptoms on admission - Enlarging splenic and liver lesions from prior scans concerning for recurrence vs. Progressive disease (remission never documented, patient reports lesions small at conclusion of chemotherapy) Recommendations: - IR consult for guided biopsy of liver mass - CT Chest for complete assessment of disease burden. Can defer for a couple of days until patient's kidney infection improves - Repeat bilirubin to assess for rise (though normal on admission, elevated from baseline 0.3 in past encounters) - Will obtain records of cancer course and treatment after last surgery for more complete history Dispo: [facility] will continue to follow. Thank you for including us in the care of this patient. [facility] will continue to follow. Please messageon-call [facility] resident via [employer] Secure Chat or page [phone] for questions or concerns regarding this patient's [facility] care. Morena Gray MD Obstetrics & Gynecology, PGY-2 [facility] Cosigned by Korey Rolle MD at 11/10/2024 8:51 AM EDT Associated attestation - Korey Rolle MD - 11/10/2024 8:51 AM EDT I saw and evaluated the patient with the resident/fellow. I discussed the case with the resident/fellow and agree with the findings and plan as documented. Admitted to Surgery for possible cholecystitis, do not plan surgical intervention at this time H/O endometrial cancer last treated in 2019? CT with large liver and splenic mets Trend bilirubin IR biopsy * Care Plan - Edel Aguirre RN - 11/09/2024 11:58 PM EDT Problem: Adult Inpatient Plan of Care Goal: Plan of Care Review Outcome: Ongoing, Progressing Flowsheets (Taken 11/09/20242355) Progress: no change Plan of Care Reviewed With: patient Goal: Patient-Specific Goal (Individualized) Outcome: Ongoing, Progressing Flowsheets (Taken 11/09/20241999) Patient/Family-Specific Goals (Include Timeframe): pt will have relief from nausea within 1hour of nausea interventions Goal: Absence of Hospital-Acquired Illness or Injury Outcome: Ongoing, Progressing Intervention: Prevent Skin Injury Flowsheets (Taken 11/09/20242355) Body Position: weight shifting Intervention: Prevent and Manage VTE (Venous Thromboembolism) Risk Flowsheets (Taken 11/09/20241999) VTE Prevention/Management: bilateral SCDs (sequential compression devices) on Goal: Optimal Comfort and Wellbeing Outcome: Ongoing, Progressing Intervention: Provide Person-Centered Care Flowsheets (Taken 11/09/20242355) Trust Relationship/Rapport: care explained questions answered questions encouraged choices provided Problem: Fall Injury Risk Goal: Absence of Fall and Fall-Related Injury Outcome: Ongoing, Progressing Intervention: Promote Injury-Free Environment Flowsheets (Taken 11/09/20241999) Safety Promotion/Fall Prevention: clutter-free environment maintained safety round/check completed Problem: Pain Acute Goal: Optimal Pain Control and Function Outcome: Ongoing, Progressing Intervention: Prevent or Manage Pain Flowsheets (Taken 11/09/20242355) Sensory Stimulation Regulation: care clustered Problem: Electrolyte Imbalance Goal: Electrolyte Balance Outcome: Ongoing, Progressing Intervention: Monitor and Manage Electrolyte Imbalance Flowsheets (Taken 11/09/20242355) Fluid/Electrolyte Management: fluids provided Problem: Nausea and Vomiting Goal: Nausea and Vomiting Relief Outcome: Ongoing, Progressing Intervention: Prevent and Manage Nausea and Vomiting Flowsheets (Taken 11/09/20242355) Fluid/Electrolyte Management: fluids provided Nausea/Vomiting Interventions: cool cloth applied slow deep breathing encouraged Environmental Support: calm environment promoted * Progress Notes - Ayan Fuentes MD - 11/09/2024 9:18 PM EDT 11/09/24 Radha Aparicio [facility] Radha Aparicio is a 44 y.o. female with history of endometrial cancer with possible metastasisto the liver presenting to [facility] on 11/08/2024 with one week of nausea, vomiting, anorexia, and RUQ pain. US and CT demonstrated cholelithiasis and increase in interval of her liver metastaticlesion. Interval: VSS. AF. She continues to have RUQ. States that she continues to have nausea but currently no vomiting. Has not been able to tolerate food well. Family expressed frustration of not knowing exactly what is going on. [facility]ht[facility] Worker Onc consulted due do increase in size of liver meds from endometrial cancer. Edited by: Ayan Fuentes MD at 11/09/20242111 Relevant review of systems was obtained as able and is negative unless stated above in HPI. Vital signs: Vitals: 11/09/241914 BP: 139/80 Pulse: (!) 111 Resp: 16 Temp: 37.4 ??C (99.4 ??F) SpO2: 92% Physical Exam Vitals and nursing note reviewed. Constitutional: Appearance: Normal appearance. HENT: Head: Normocephalic and atraumatic. Right Ear: External ear normal. Left Ear: External ear normal. Nose: Nose normal. Mouth/Throat: Mouth: Mucous membranes are moist. Pharynx: Oropharynx is clear. Eyes: Extraocular Movements: Extraocular movements intact. Pulmonary: Effort: Pulmonary effort is normal. No respiratory distress. Abdominal: General: Abdomen is flat. Palpations: Abdomen is soft. Tenderness: There is abdominal tenderness (RUQ). There is no guarding or rebound. Musculoskeletal: General: Normal range of motion. Cervical back: Normal range of motion and neck supple. Skin: General: Skin is warm and dry. Capillary Refill: Capillary refill takes less than 2 seconds. Neurological: General: No focal deficit present. Mental Status: She is alert and oriented to person, place, and time. Psychiatric: Mood and Affect: Mood normal. Behavior: Behavior normal. Intake/Output Summary (Last 24 hours) at 11/09/20242118 Last data filed at 11/09/2024 0900 Gross per 24 hour Intake 987.92 ml Output 200 ml Net 787.92 ml Lines/Drains/Tubes: Patient Lines/Drains/Airways Status Active Airway None Output by Drain (mL) 11/07/24 07 - 11/07/24 18511/07/24 1900 - 11/08/24 0659 11/08/24 07 - 11/08/24 1859 11/08/24 1900 - 11/09/24 0659 11/09/24 0700 - 11/09/24 1859 11/09/24 1900 - 11/09/242118 Patient has no LDAs of requested type attached. Labs in last 18 hours: CBC WBC ?? Hb ?? Plt ?? Hct ?? ANC ?? INR ??, PTT ??, Anti-Xa ?? MCV ?? BMP Na ?? Cl ?? BUN ?? Glu ?? K ?? Co2 ?? Cr ?? Ca ?? iCa ?? Mg ??, Phos ?? Lactate ?? LFT AST ?? AlkPhos ?? T Prot ?? ALK ?? Bili ?? Alb ?? D.Bili ?? Lab Trends: H/H Results from last 7 days Lab Units 11/09/24 0204 11/08/24 1312 HEMOGLOBIN g/dL 7.4* 9.1* HEMATOCRIT % 22.8* 27.9* INR Results from last 7 days Lab Units 11/08/24 1312 INR 1.3* Cr Results from last 7 days Lab Units 11/09/24 0204 11/08/24 1312 CREATININE mg/dL 1.81* 1.64* Medications reviewed. Vital signs reviewed. Labs reviewed. Radiography reviewed. Assessment and Plan: Assessment & Plan Calculus of gallbladder with acute cholecystitis without obstruction Present on Admission: Yes - WBC of 13 - Cholelithiasis noted on RUQ US - Lactate 1.5 - NPO SBO (small bowel obstruction) (CMS/HCC) Present on Admission: Yes H/O cholelithiasis Present on Admission: Not Applicable Other cholelithiasis without obstruction Present on Admission: Yes Endometrial cancer with metastatic disease to Plan: [ ] f/u liver biopsy - Washtub Worker-Onc consulted: IR consult for guided biopsy of liver mass, CT Chest but defer til kidney infection improves repeat bilirubin - Reg diet - MMPC - Repeat labs Edited by: Ayan Fuentes MD at 11/09/20242118 Ayan Fuentes MD Cosigned by Morelia Galvez MD at 11/10/2024 7:11 AM EDT Associated attestation - Morelia Galvez MD - 11/10/2024 7:11 AM EDT I saw and evaluated the patient with the resident/fellow. I discussed the case with the resident/fellow and agree with the findings and plan as documented. Pt with abdominal pain and noted gallstone. Exam improved CT abdomen and pelvis completed and reviewed Washtub Worker Onc consultation I do not think her abdominal pain is consistent with acute cholecystitis and we discussed with the patient we would not proceed with operative intervention at this time Morelia Galvez MD, FACS mill attendant Trauma Acute Care Surgery * Procedures - Gerardo Fabian RN - 11/09/2024 5:08 PM EDTAssociated Order(s): Insert peripheral IV Insert peripheral IV Performed by: Gerardo Fabian RN Authorized by: Morelia Galvez MD Hand hygiene: Hand hygiene performed prior to insertion Inserted using aseptic techniques: Yes Preparation: Skin prepped with chg Orientation: Left Location: Forearm Catheter placed: Peripheral IV Catheter size: 20g/1.88in Line Technique: Ultrasound Guidance Number of attempts: 1 IV flushes: Without difficulty and positive blood return noted Patient tolerance: Patient tolerated the procedure well IV site covered with: Transparent semipermeable dressing * Consults - Christine Alvares MD - 11/09/2024 4:38 PM EDTAssociated Order(s): Inpatient consult to gynecologic oncology Gynecologic Oncology Consult Note Patient Name: Radha Aparicio : 1980 Inpatient consult to gynecologic oncology Consult performed by: Christine Alvares MD Consult ordered by: Morelia Galvez MD Subjective Subjective History of Present Illness: Radha Aparicio is a 44 y.o. female with history of high grade endometrioid adenocarcinoma currently admitted to Surgery for RUQ pain. She presented to ED on 11/08 and was admitted for concern forcholecystitis. This has been ruled out. [facility] consulted for persistent abdominal pain and enlarging liver mets on imaging. She was [facility] when she was admitted as CHERYL for pelvic pain. She had presentedwith flank pain to OSH and was found to have large adnexal mass on CT scan with lesions on the liver and spleen. She underwent DIONNA/BSO, liver mass biopsy and tumor debulking with Dr. Jane on 09/01/2017. Pathology from this procedure was consistent with high grade endometrioid adenocarcinoma of pelvic mass, liver biopsy and cul-de-sac mass biopsy. She underwent one year of chemotherapy with OS provider (carbo/tax from chart review). She completed full treatment and was planned to have repeat imaging three months after completion. However, she was unable to obtain this due to her mother getting sick and unfortunately passing away from cancer. She had hospital encounter 06/16/23 for kidney stones. Per ED notes, in remission . She had CT renal stone scan during this presentation showing multiple large hepatic hypodensities measuring up to 11.3x5.3x8.9 cm with redemonstrated splenic nodule and was recommended to have further CT vs. MRI for characterization. She has followed up with [facility] onc provider since then. She reports he was planning to contact Dr. Maldonado office and arrange IR biopsy of liver lesions. Presents during current admission with one week of N/V, anorexia and RUQ pain with diarrhea and fevers to 101.1 at home. Pain was most prominent in the RUQ and worse with eating. She was tachycardia on admission with positive Park's sign. She additionally has JOSIAS with Cr of 1.5. She was started on cefoxetine and admitted for observation. Since admission, she reports her pain is improving. Tolerating some PO intake without N/V. Prior to onset of these symptoms, she reports doing well. She denies abnormal vaginal bleeding or discharge. She denies weight loss, changes to bowel/bladder function, appetite, etc. Prior to this acute episode. CT scan obtained this morning and significant for enlarging liver and splenic lesions all with interval size increase since last CT in 2023. She had borderline enlarged retroperitoneal lymph nodes and small right pleural effusion. Oncologic History: Primary Oncologist: Dr. Jane Oncology History No history exists. Past Medical History: Past Medical History[1] Past Surgical History: Surgical History[2] Family History: Family History[3] Social History: Social History[4] Medications: Current Outpatient Medications Medication Instructions ketorolac (TORADOL) 10 mg, Oral, Every 6 hours PRN Allergies: Allergies[5] Review of Systems: Review of Systems All other systems reviewed and are negative. Objective Objective Vital Signs: Visit Vitals BP 128/56 (BP Location: Left arm, Patient Position: Lying) Pulse 86 Temp 36.9 ??C (98.5 ??F) (Oral) Resp 15 BMI: Body mass index is 36.18 kg/m??. Weight: Wt Readings from Last 3 Encounters: 11/08/24 111 kg (245 lb) 06/16/23 118 kg (260 lb) Physical Exam Constitutional: Appearance: Normal appearance. HENT: Head: Normocephalic and atraumatic. Eyes: Conjunctiva/sclera: Conjunctivae normal. Cardiovascular: Rate and Rhythm: Normal rate. Pulmonary: Effort: Pulmonary effort is normal. Musculoskeletal: General: Normal range of motion. Cervical back: Normal range of motion. Neurological: General: No focal deficit present. Mental Status: She is alert and oriented to person, place, and time. Skin: General: Skin is warm and dry. Capillary Refill: Capillary refill takes less than 2 seconds. Psychiatric: Mood and Affect: Mood normal. Behavior: Behavior normal. Results: Lab Results Component Value Date WBC 12.51 (H) 11/09/2024 RBC 2.74 (L) 11/09/2024 HGB 7.4 (L) 11/09/2024 HCT 22.8 (L) 11/09/2024 PLT 261 11/09/2024 MCV 83 11/09/2024 MCH 27.0 11/09/2024 MCHC 32.5 11/09/2024 RDW 16.2 (H) 11/09/2024 MPV 9.8 11/09/2024 NRBC 0.0 11/09/2024 Lab Results Component Value Date GLUCOSE 96 11/09/2024 BUN 21 11/09/2024 CREATININE 1.81 (H) 11/09/2024 BCR 12 11/09/2024 NA 139 11/09/2024 K 3.0 (L) 11/09/2024 CL 104 11/09/2024 CO2 19 (L) 11/09/2024 ANIONGAP 16 11/09/2024 CALCIUM 8.3 (L) 11/09/2024 TP 6.2 (L) 11/08/2024 ALBUMIN 2.6 (L) 11/08/2024 AST 62 (H) 11/08/2024 ALT 22 11/08/2024 ALKPHOS 231 (H) 11/08/2024 BILITOT 1.0 11/08/2024 EGFR 34.6 11/09/2024 Lab Results Component Value Date MG 1.7 (L) 11/09/2024 PHOS 3.9 11/09/2024 CAION 4.3 (L) 09/03/2017 Lab Results Component Value Date INR 1.3 (H) 11/08/2024 Imaging: CT Abdomen Pelvis w IV Contrast Result Date: 11/09/2024 Interval increase size of liver lesions and splenic metastatic lesions compared to prior CT from 2023 Redemonstration of borderline retroperitoneal lymph nodes, which are slightly increased in size Small right pleural effusion and adjacent atelectasis. Minimal left basilar atelectasis Cholelithiasis without CT evidence of cholecystitis. CRITICAL RESULT: No. COMMUNICATION: Per this written report. By electronically signing this report, I, the attending physician, attest that I have personally reviewed the images/data for the above examination(s) and agree with the final edited report. Drafted by Tio East MD on 11/09/2024 8:58 AM Final report signed by Jan Alfonso MD on 11/09/2024 10:03 AM @IMGFNDIMP@ Assessment/Plan Assessment / Plan Radha Aparicio is a 44 y.o. with history of high grade endometroid adenocarcinoma admitted to Surgery for work up of cholelithiasis. # High grade endometroid adenocarcinoma - Diagnosed 2018 after DIONNA/BSO, liver biopsy, tumor debulking with Dr. Jane for new pelvic mass with associated liver and splenic lesions -- pathology of pelvic mass and liver biopsy both consistent with high grade endometrioid adenocarcinoma - Completed 1 year of chemotherapy (carbo/tax per chart review) with Dr. Veloz at [facility] - Lost to follow up due to family matters -- planned three month scan after completion of treatment - Represented to care [address] stones, CT renal showed multiple large hepatic hypodensities measuring up to 11.3x5.3x8.9 cm with redemonstrated splenic nodule - Has since reestablished with Dr. Veloz due to redemonstration of masses -- has discussed biopsy oflesions and discussion with Dr. Jane's office, unsure if this has been completed yet - Current admission due to fever/chills, N/V, RUQ abd pain w/ inability tolerate PO intake x2 weeks. Initial concern for cholecystitis, admitted for antibiotics and obs. Symptoms improving, felt to have cholelithiasis picture based on CT findings - Denies vaginal bleeding, discharge, weight loss, or other symptoms prior to current acute episode - CT scan 11/09 significant for several large liver lesions (right dome -- [id number] (enlarged from 4.7 x 4.2) & 10.5 x 5.2 x 9.1) and posterior measuring up to 5.2 cm; splenic pericapsular lesion (7.5 x 5.0 x 7.4); borderline enlarged left para-aortic lymph nodes - Patient with acute onset pain, N/V/D, fevers at home, unclear if current clinical picture is attributable to current abdominal masses given concurrent presence of gallstones, but should consider potential for masses to cause biliary obstruction which could result in cholangitis picture explainingher symptoms on admission - Enlarging splenic and liver lesions from prior scans concerning for recurrence vs. Progressive disease (remission never documented, patient reports lesions small at conclusion of chemotherapy) Recommendations: - IR consult for guided biopsy of liver mass - CT Chest for complete assessment of disease burden. Can defer for a couple of days until patient's kidney infection improves - Repeat bilirubin to assess for rise (though normal on admission, elevated from baseline 0.3 in past encounters) - Will obtain records of cancer course and treatment after last surgery for more complete history Dispo: [facility] will continue to follow. Thank you for including us in the care of this patient. [facility] will continue to follow.. Please message on-call [facility] resident via [employer] Secure Chat or page [phone] for questions or concerns regardingthis patient's care. Christine Morrison MD Obstetrics and Gynecology, PGY-3 [1] Past Medical History: Diagnosis Date Disease of salivary gland, unspecified Parotid mass [2] Past Surgical History: Procedure Laterality Date HYSTERECTOMY N/A Hysterectomy from [facility] TUBAL LIGATION N/A Tubal ligation from [facility] [3] Family History Problem Relation Name Age of Onset Bone cancer Paternal Grandfather Family history of bone cancer Hypertension Father Family history of hypertension Breast cancer Paternal Grandmother FH: breast cancer Breast cancer Maternal Grandmother FH: breast cancer Throat cancer Other FH: throat cancer Throat cancer Other FH: throat cancer [4] Social History Socioeconomic History Marital status: Single Tobacco Use Smoking status: Every Day Social History Narrative Tobacco Use Disorder Social Drivers of Health Received from [facility] Family and Community Support Received from [facility] Abuse Screen Received from [facility] Housing Stability [5] Allergies Allergen Reactions Carboplatin Nausea and Other - please document in the comment field sweating, dizzy, diarrhea, shortness of breath Cosigned by Korey Rolle MD at 11/10/2024 8:42 AM EDT Associated attestation - Korey Rolle MD - 11/10/2024 8:42 AM EDT I saw and evaluated the patient with the resident/fellow. I discussed the case with the resident/fellow and agree with the findings and plan as documented. * Care Plan - Caleb Hauser RN - 11/09/2024 10:33 AM EDT Problem: Adult Inpatient Plan of Care Goal: Plan of Care Review Outcome: Ongoing, Progressing Flowsheets (Taken 11/09/2024 1030) Progress: no change Plan of Care Reviewed With: patient family Goal: Patient-Specific Goal (Individualized) Outcome: Ongoing, Progressing Flowsheets (Taken 11/09/2024 103) Patient/Family-Specific Goals (Include Timeframe): Patient will verbalize that their symptoms of nausea are kept under control during 7519-8688 shift Individualized Care Needs: nausea/vomiting management Anxieties, Fears or Concerns: whether they will have their gallbladder removed or not Goal: Absence of Hospital-Acquired Illness or Injury Outcome: Ongoing, Progressing Intervention: Identify and Manage Fall Risk Flowsheets (Taken 11/09/2024 1030) Safety Promotion/Fall Prevention: fall prevention program maintained activity supervised safety round/check completed clutter-free environment maintained Intervention: Prevent Skin Injury Flowsheets (Taken 11/09/2024 1030) Body Position: weight shifting Skin Protection: incontinence pads utilized protective footwear used Intervention: Prevent and Manage VTE (Venous Thromboembolism) Risk Flowsheets (Taken 11/09/2024 0400 by Naida Ly, INOCENCIA) VTE Prevention/Management: bilateral SCDs (sequential compression devices) on Intervention: Prevent Infection Flowsheets (Taken 11/09/2024 1030) Infection Prevention: hand hygiene promoted rest/sleep promoted Goal: Optimal Comfort and Wellbeing Outcome: Ongoing, Progressing Intervention: Monitor Pain and Promote Comfort Flowsheets (Taken 11/09/2024 1030) Pain Management Interventions: quiet environment facilitated rest relaxation techniques promoted Intervention: Provide Person-Centered Care Flowsheets (Taken 11/09/2024 1030) Trust Relationship/Rapport: care explained questions answered questions encouraged reassurance provided empathic listening provided emotional support provided choices provided thoughts/feelings acknowledged Problem: Fall Injury Risk Goal: Absence of Fall and Fall-Related Injury Outcome: Ongoing, Progressing Intervention: Identify and Manage Contributors Flowsheets (Taken 11/09/2024 1030) Medication Review/Management: medications reviewed Self-Care Promotion: independence encouraged Intervention: Promote Injury-Free Environment Flowsheets (Taken 11/09/2024 103) Safety Promotion/Fall Prevention: fall prevention program maintained activity supervised safety round/check completed clutter-free environment maintained Problem: Pain Acute Goal: Optimal Pain Control and Function Outcome: Ongoing, Progressing Intervention: Optimize Psychosocial Wellbeing Flowsheets (Taken 11/09/2024 103) Supportive Measures: active listening utilized relaxation techniques promoted Diversional Activities: television Spiritual Activities Assistance: affirmation provided Intervention: Develop Pain Management Plan Flowsheets (Taken 11/09/2024 1030) Pain Management Interventions: quiet environment facilitated rest relaxation techniques promoted Intervention: Prevent or Manage Pain Flowsheets (Taken 11/09/2024 1030) Sleep/Rest Enhancement: awakenings minimized relaxation techniques promoted room darkened Medication Review/Management: medications reviewed Problem: Electrolyte Imbalance Goal: Electrolyte Balance Outcome: Ongoing, Progressing Intervention: Monitor and Manage Electrolyte Imbalance Flowsheets (Taken 11/09/2024 1030) Fluid/Electrolyte Management: intravenous fluid replacement initiated fluids provided * Hospital Course - Laxmi Garrido MD - 11/09/2024 6:45 AM EDT Radha Aparicio is a 44 y.o. female with history of high grade endometroid adenocarcinoma that [facility] and was lost to follow up. She presented with one week of nausea, vomiting, anorexia, and RUQ pain. She was initially admitted to the Trauma Surgery service for c/f cholecystitis. A RUQ US was performed that demonstrated cholelithiasis without cholecystitis. CT A/P wasperformed on 11/09 demonstrated interval increase size of liver lesions and splenic metastatic lesions compared to prior CT from 2023. Due to concern for intratumoral hemorrhage within the liver lesions, interventional radiology was consulted and performed an embolization & biopsy on 11/14. Caris testing was sent on the collected specimen. The patient was discharged to home on HD# 6. On discharge, she was ambulating and tolerating PO. She has a follow up scheduled with Dr. Veloz at [facility] on 11/25. * Care Plan - Naida Ly RN - 11/09/2024 1:42 AM EDT Problem: Adult Inpatient Plan of Care Goal: Plan of Care Review Outcome: Ongoing, Progressing Flowsheets (Taken 11/09/2024 0142) Plan of Care Reviewed With: patient family Goal: Patient-Specific Goal (Individualized) Outcome: Ongoing, Progressing Flowsheets (Taken 11/08/2024 2241) Patient/Family-Specific Goals (Include Timeframe): to get better and go home Individualized Care Needs: none Anxieties, Fears or Concerns: none Goal: Optimal Comfort and Wellbeing Outcome: Ongoing, Progressing PRECAUTIONS: fall NEURO: AO x 4 RESP: room air CV: non-tele S1S2 GI: NPO ice chips ok and sips with meds c/o nausea zofran around the clock : voids to bathroom MUSC: DHALIWAL; independent SKIN: intact; temp 101.1F tylenol given x 1. SOCIAL: family at bedside helpful with pt care PAIN: no c/o pain DVT: bilateral SCDs LINES: R FA 20G LR @75cc/hr Cefoxitin 2g Q6H PLAN: pending; pt states she has not seen a provider and does not know the plan. Per coverage overnight plan will be in place after AM discussions with Physician. Message relayed to pt and her family. AM LABS: ordered and collected K 3.0 Mag 1.7 both repleted * ED Notes - Pietro Shaikh - 11/08/2024 7:50 PM EDT Patient respirations 33 times a minute, SPO2 90% on room air, Patient denies dyspnea at rest or SOBat this time. Placed no 2L via nasal cannula for comfort, Respirations 26 times a minute, SPO2 increased to 97% on 2L via nasal cannula. * ED Notes - Pietro Shaikh - 11/08/2024 7:42 PM EDT Patient given ice chips. * Assessment & Plan Note - Yunier Gamino MD - 11/08/2024 7:32 PM EDT Associated Problem(s): Calculus of gallbladder without cholecystitis without obstruction - WBC of 13 - Cholelithiasis noted on RUQ US - Lactate 1.5 - NPO * H&P - Yunier Gamino MD - 11/08/2024 3:14 PM EDTAssociated Order(s): Consult to Emergency General Surgery Reason for Consultation: suspected cholecystitis Requesting Service: Emergency Department Consult to Emergency General Surgery Consult performed by: Yunier Gamino MD Consult ordered by: Long Rios MD History Of Present Illness Radha Aparicio is a 44 y.o. female with history of endometrial cancer with possible metastasisto the liver presenting to [facility] on 11/08/2024 with one week of nausea, vomiting, anorexia, and RUQ pain. She has also had multiple episodes of diarrhea. She has had the symptoms for one week.She has been unable to eat anything, and states that she vomits immediately after eating anything so lid. She has been able to keep down some water and soft foods. She has had recurrent fevers, the last measured one was yesterday to 101.1, and she has been taking tylenol for that. She continues to vomit in the hospital, but states nothing comes up. She has pain in the right upper abdomen that worsens after eating. She presented to [facility] a week ago for these symptoms, and was discharged after one day. She presented to the OSH again today, and was transferred to [facility] for concerns forcholelithiasis vs. PE. OSH was concerned for PE due to history of malignancy and tachycardia, she denied pleuritic chest pain, shortness of breath, and lower extremity swelling and erythema. She was g iven heparin at the outside hospital, which was discontinued by the Emergency Department. A CT PE was not obtained at OSH due to the patients JOSIAS. She has had some episodes of retching in the ED, andcontinues to have RUQ pain. She has no other concerns at this time. History Obtained From: Patient/Family Past Medical History She has a past medical history of Disease of salivary gland, unspecified. Reviewed and not pertinent Surgical History She has a past surgical history that includes Hysterectomy (N/A) and Tubal ligation (N/A). Reviewed and not pertinent Family History Family History[1] Negative Social History She reports that she has been smoking. She does not have any smokeless tobacco history on file. No history on file for alcohol use and drug use. Reviewed as documented above Allergies Carboplatin Negative Medications Current Medications[2] Reviewed as documented above Review of Systems Relevant review of systems was obtained as able and is negative unless stated above in HPI. Last Recorded Vitals Blood pressure (!) 140/89, pulse 112, temperature 37.2 ??C (98.9 ??F), temperature source Oral, resp. rate 23, height 1.753 m (5' 9 ), weight 111 kg (245 lb), SpO2 97%. Physical Exam Constitutional: Appearance: Normal appearance. HENT: Head: Normocephalic and atraumatic. Cardiovascular: Rate and Rhythm: Tachycardia present. Pulses: Normal pulses. Pulmonary: Effort: Pulmonary effort is normal. Abdominal: Tenderness: There is abdominal tenderness in the right upper quadrant. Positive signs include Park's sign. Skin: General: Skin is warm and dry. Neurological: Mental Status: She is alert and oriented to person, place, and time. Psychiatric: Mood and Affect: Mood normal. Behavior: Behavior normal. Recent Results Labs in last 18 hours CBC WBC 13.33 (H) Hb 9.1 (L) Plt 301 Hct 27.9 (L) ANC 11.14 (H) INR 1.3 (H), PTT ??, Anti-Xa ?? BMP Na 140 Cl 108 (H) BUN 20 Glu 106 (H) K 3.2 (L) Co2 18 (L) Cr 1.64 (H) Ca 7.6 (L) iCa ?? Mg ??, Phos ?? Lactate ?? LFT AST 62 (H) AlkPhos 231 (H) T Prot 6.2 (L) ALK 22 Bili 1.0 Alb ?? D.Bili ?? Radiology I personally and independently reviewed the Ultrasound images available at today's visit which showed: gallstones, no CBD dilation (4mm), no pericholecystic fluid. Assessment & Plan Calculus of gallbladder with acute cholecystitis without obstruction Present on Admission: Yes - WBC of 13 - Cholelithiasis noted on RUQ US - Lactate 1.5 - NPO Dispo: Admit to SGE Floor - Begin Cefoxatine - Monitor abdominal exam - IVF bolus - NPO CODE STATUS: full code This Consult, Assessment, and Plan has been discussed with Dr. Leonard, Attending Physician Electronically Signed by: Guille Dent - 11/08/2024 - 3:39 PM [1] Family History Problem Relation Name Age of Onset Bone cancer Paternal Grandfather Family history of bone cancer Hypertension Father Family history of hypertension Breast cancer Paternal Grandmother FH: breast cancer Breast cancer Maternal Grandmother FH: breast cancer Throat cancer Other FH: throat cancer Throat cancer Other FH: throat cancer [2] No current facility-administered medications for this encounter. Current Outpatient Medications Medication Sig Dispense Refill ketorolac (Toradol) 10 MG tablet Take 1 tablet (10 mg) by mouth every 6 (six) hours if needed for moderate pain. 20 tablet 0 Cosigned by Rui Leonard DO at 11/17/2024 1:06 PM EDT Associated attestation - Rui Leonard DO - 11/17/2024 1:06 PM EDT I saw and evaluated the patient with the resident/fellow. I discussed the case with the resident/fellow and agree with the findings and plan as documented. * ED Provider Notes - J Luis Torres MD - 11/08/2024 11:13 AM EDT - I J Luis Torres saw and evaluated the patient with the medical student. I discussed the case withthe medical student and agree with the findings and plan as documented. I personally performed the Exam and Medical Decision Making. HPI Chief Complaint Patient presents with Multiple Complaints History provided by: Patient Ms. Aparicio is a 44-year-old female with history of ovarian cancer s/p DIONNA/BSO with potential liver metastasis who presents to emergency department for weakness and decreased food intake for the last week. Reports being unable to tolerate food intake for the last week and shortly vomiting within an hour after eating. She presented to OSH for these symptoms and ultrasound at OSH showed cholelithiasis. Endorses limited mobility for the last week due to decreased food intake and pain in right upper and epigastric region of abdomen. Labs at OSH showed JOSIAS. OSH was concerned for PE given tachycardia and history of malignancy. She was placed on heparin drip at outside hospital and CTPE was not obtained due to patient's JOSIAS. Upon arrival to , patient continued to have intermittent tachycardia but denied pleuritic chest pain, shortness of breath, and lower extremity swelling and erythema. Patient History Past Medical History[1] Surgical History[2] Family History[3] Social History[4] Allergies: Allergies[5] Physical Exam ED Triage Vitals [11/08/24 1121] Temp Heart Rate Resp BP 37.3 ??C (99.1 ??F) 99 25 135/81 SpO2 Temp Source Heart Rate Source Patient Position 99 % Oral Monitor Sitting BP Location FiO2 (%) Right arm -- Physical Exam Constitutional: Appearance: She is obese. She is ill-appearing. HENT: Head: Normocephalic and atraumatic. Cardiovascular: Rate and Rhythm: Regular rhythm. Tachycardia present. Pulmonary: Effort: Pulmonary effort is normal. No respiratory distress. Breath sounds: Normal breath sounds. Abdominal: General: There is no distension. Tenderness: There is abdominal tenderness (right upper quadrant). Musculoskeletal: Right lower leg: No edema. Left lower leg: No edema. Comments: No erythema in LLEs. Skin: General: Skin is warm and dry. Neurological: Mental Status: She is alert and oriented to person, place, and time. Mental status is at baseline. Psychiatric: Mood and Affect: Mood normal. Fabio Coma Scale Score: 15 ED Course & MDM - Assessment: 44 y.o. female presents to ED with complaint of weakness, vomiting, and abdominal pain. It should be noted that the chronic conditions includes history of ovarian cancer s/p DIONNA/BSO with possible liver mets, which currently is not at goal therapy. This complicates the clinical picture because it Comorbidities: may be exacerbating symptoms and increases the risk for morbidity Differential Diagnosis: Cholelithiasis, cholecystitis, pancreatitis, constipation, shingles, traumatic injury. MDM: In summary, this 44 y.o. female presents to the emergency department with weakness, nausea/vomiting, and abdominal pain. On initial evaluation, awake and alert. Patient is ill-appearing but otherwise hemodynamically stable. She has no lower extremity swelling or erythema on exam and denies chest pain or shortness of breath. EKG on arrival showed normal sinus rhythm. Heparin drip discontinued. Based on these concerns, abdominal US, CMP, CBC w/ diff, PT-INR, heparin level, troponin, and BNP were ordered. In order to fully explore the differential diagnosis the following treatments and tests were ordered: All Other Orders Ordered Status Ordering Provider 11/08/24 1247 US Abdomen Focused Region GB, Bile Ducts Once Acknowledged J LUIS TORRES 11/08/24 1247 ED Protocol - HIV 1/2 Antibody/Antigen Screen Once Collected J LUIS TORRES 11/08/24 1247 ED HIV 1/2 Antibody/Antigen Screen w/Reflex to HIV 1/2 Differentiation PROCEDURE ONCE Collected J LUIS TORRES 11/08/24 1247 CMP STAT Collected J LUIS TORRES 11/08/24 1247 Troponin now and 120 min STAT Collected J LUIS TORRES 11/08/24 1247 BNP STAT Collected J LUIS TORRES 11/08/24 1247 CBC w/diff STAT Collected J LUIS TORRES 11/08/24 1247 PT-INR STAT Collected J LUIS TORRES 11/08/24 1247 Heparin level STAT Collected J LUIS TORRES 11/08/24 1120 EKG now - STAT (adult) Once Preliminary result [facility] ED Course as of 11/08/24 1456 Sat Nov 08, 2024 1454 Laboratory workup personally interpreted by me shows mild leukocytosis, mild anemia, mild JOSIAS,mild elevation in alk-phos, no elevation in bilirubin. [MM] 1455 Ultrasound personally interpreted By me shows cholelithiasis with no sign of cholecystitis. [MM] 1455 Outside records carefully reviewed by me, the ED provider from outside hospital was concerned about pulmonary embolism due to the patient's persistent tachycardia. He was unable to perform a CT scan of the chest due to a significant JOSIAS. He place the patient on a heparin drip. On my initial sid luation the patient was not tachycardic, not short of breath, not endorsing pleuritic chest pain. She had no swelling in either leg, in his never had a blood clot before. [MM] 1456 Based on a relatively low Wells score I felt comfortable discontinuing her heparin drip, not continuing workup for PE. [MM] 1456 Based on the patient's ultrasound and made the decision to consult the general surgery service, recommendations pending at this time. [MM] ED Course User Index [MM] J Luis Torres MD Ultimately, this patient was [facility] ([facility] Out) Patient care assumed by [facility] Armaan campbell, at shift change, tentative plan at the time of sign-out was pending S recs ED Prescriptions None - Hugo Meehan, MS4 [1] Past Medical History: Diagnosis Date Disease of salivary gland, unspecified Parotid mass [2] Past Surgical History: Procedure Laterality Date HYSTERECTOMY N/A Hysterectomy from [facility] TUBAL LIGATION N/A Tubal ligation from [facility] [3] Family History Problem Relation Name Age of Onset Bone cancer Paternal Grandfather Family history of bone cancer Hypertension Father Family history of hypertension Breast cancer Paternal Grandmother FH: breast cancer Breast cancer Maternal Grandmother FH: breast cancer Throat cancer Other FH: throat cancer Throat cancer Other FH: throat cancer [4] Tobacco Use Smoking status: Every Day [5] Allergies Allergen Reactions Carboplatin Nausea and Other - please document in the comment field sweating, dizzy, diarrhea, shortness of breath J Luis Torres MD Resident 11/08/24 1457 Cosigned by Long Rios MD at 11/11/2024 7:55 AM EDT Associated attestation - Long Rios MD - 11/11/2024 7:55 AM EDT I, Long Rios MD, personally verified the history, examined the patient, discussed with the student and resident and performed the medical decision making. I agree with the documentation and plan of care. * ED Triage Notes - Ly King RN - 11/08/2024 11:13 AM EDT Pt arrives via EMS from OSH for multiple complaints. Pt reports weakness, decrease in PO and constipation over the last week. Pt reports hx of ovarian cancer with possible mets that she has not followed up on. Pt dx with JOSIAS and symptomatic cholelthiasis at the OSH and possible PE but not CT scans obtained. Pt started on a heparin drip before transfer. GCS 15 and VSS upon arrival * Progress Notes - Daniel Crook MD - 11/08/2024 11:13 AM EDT Images from the original note were not included. ED TRANSFER OF CARE NOTE Transferring provider: Brian Transferring attending: Shila CHERYL Time: 1500 I received sign-out and accepted care of this patient from the previous ED providers caring for this patient. I reviewed the patient's history, exam, work- up, and treatment plan up to this point. Please see the primary ED Provider Note for complete elements of the history, physical exam, and ED course. PERTINENT HISTORY: In brief, Radha Aparicio is a 44 y.o. female with relevant PMH ovarian cancer who presented to the ED for evaluation of RUQ pain. PENDING: I accepted care of this patient from the previous provider pending imaging results. Ultimately, imaging demonstrated the following findings: Cholelithiasis without evidence of cholecystitis.However given her symptoms insert here team was consulted and agreed to admission of patient. At this time she will be transferred to the care of the surgery team. ED COURSE: ED Course as of 11/08/242009 Sat Nov 08, 2024 1454 Laboratory workup personally interpreted by me shows mild leukocytosis, mild anemia, mild JOSIAS,mild elevation in alk-phos, no elevation in bilirubin. [MM] 1455 Ultrasound personally interpreted By me shows cholelithiasis with no sign of cholecystitis. [MM] 1455 Outside records carefully reviewed by me, the ED provider from outside hospital was concerned about pulmonary embolism due to the patient's persistent tachycardia. He was unable to perform a CT scan of the chest due to a significant JOSIAS. He place the patient on a heparin drip. On my initial sid luation the patient was not tachycardic, not short of breath, not endorsing pleuritic chest pain. She had no swelling in either leg, in his never had a blood clot before. [MM] 1456 Based on a relatively low Wells score I felt comfortable discontinuing her heparin drip, not continuing workup for PE. [MM] 1456 Based on the patient's ultrasound and made the decision to consult the general surgery service, recommendations pending at this time. [MM] ED Course User Index [MM] J Luis Torres MD Ultimately, this patient Was admitted (Admission) There were no encounter diagnoses.. Patient believed to require admission for the listed diagnoses. The General Surgery service was consulted for admission and was agreeable to admit to Acute Floor (Med/Surg). ED Prescriptions None Disposition Admit Admitting/Attending Physician: RUI LEONARD [[id number]] Provider Care Team: E EMERGENCY GENERAL SURGERY FLOOR 1 [[id number]] Are they the primary team?: Yes [1] - Daniel Crook MD Cosigned by Mi Pascal DO at 11/11/2024 8:33 AM EDT Associated attestation - Mi Pascal DO - 11/11/2024 8:33 AM EDT I saw and evaluated the patient with the resident/fellow. I discussed the case with the resident/fellow and agree with the findings and plan as documented. documented in this encounter Plan of Treatment Upcoming Encounters Date Type Department Care Team (Late st Contact Info) Description 03/19/2025 12:10 PM EST Appointment [facility] [address] [place] [address] 03/19/2025 1:45 PM EST Office Visit [facility]ne[facility] [address] [place] [address] Karol Jane MD [address] [facility] [address] [place] [address] Scheduled Orders Name Type Priority Associated Diagnoses Order Schedule Fine needle aspiration - Core Biopsy Pathology and Cytology Routine Once (Lab) for 1 Occurrences starting 11/10/2024 until 11/10/2024 IR Anesthesia Request Procedures Routine Once for 1 Occurrences starting 11/10/2024 until 11/10/2024 IR Anesthesia Request Procedures Routine Once for 1 Occurrences starting 11/10/2024 until 11/10/2024 Fine needle aspiration - Core Biopsy Pathology and Cytology Routine Once (Lab) for 1 Occurrences starting 11/14/2024 until 11/14/2024 documented as of this encounter Procedures Procedure Name Priority Date/Time Associated Diagnosis Comments CARIS TN TUMOR SEEK HYBRID + IHCS AND OTHER TESTS BY TUMOR TYPE Routine 11/18/2024 2:55 PM EDT IONIZED CALCIUM, WHOLE BLOOD Pending Discharge 11/14/2024 1:07 AM EDT APTT Pending Discharge 11/14/2024 1:07 AM EDT PROTHROMBIN TIME(PT) / INR Pending Discharge 11/14/2024 1:07 AM EDT FIBRINOGEN,QUANTITATIV E (CLOTTABLE) Pending Discharge 11/14/2024 1:07 AM EDT CBC W/O DIFFERENTIAL Pending Discharge 11/14/2024 1:07 AM EDT PHOSPHORUS, PLASMA Pending Discharge 11/14/2024 1:07 AM EDT MAGNESIUM, PLASMA Pending Discharge 11/14/2024 1:07 AM EDT BASIC METABOLIC PANEL, PLASMA Pending Discharge 11/14/2024 1:07 AM EDT IONIZED CALCIUM, WHOLE BLOOD Routine 11/13/2024 3:01 AM EDT CBC W/O DIFFERENTIAL Routine 11/13/2024 3:01 AM EDT PHOSPHORUS, PLASMA Routine 11/13/2024 3: 01 AM EDT MAGNESIUM, PLASMA Routine 11/13/2024 3:0 1 AM EDT BASIC METABOLIC PANEL, PLASMA Routine 11/13/2024 3:01 AM EDT INSERT PERIPHERAL IV Routine 11/13/2024 2:59 AM EDT IONIZED CALCIUM, WHOLE BLOOD Routine 11/12/2024 10:59 AM EDT CBC W/O DIFFERENTIAL Routine 11/12/2024 10:59 AM EDT PHOSPHORUS, PLASMA Routine 11/12/2024 10:59 AM EDT MAGNESIUM, PLASMA Routine 11/12/2024 10:59 AM EDT BASIC METABOLIC PANEL, PLASMA Routine 11/12/2024 10:59 AM EDT COMPREHENSIVE GI PANEL BY PCR Routine 11/11/2024 8:01 PM EDT CLOSTRIDIODES (CLOSTRIDIUM) DIFFICILE,PCR Routine 11/11/2024 8:[address] CHEST WO IV CONTRAST Routine 11/11/2024 9:07 AM EDT SODIUM, URINE, RANDOM Routine 11/11/2024 3:34 AM EDT CREATININE, RANDOM URINE Routine 11/11/2024 3:34 AM EDT CBC W/O DIFFERENTIAL Routine 11/11/2024 3:32 AM EDT PHOSPHORUS, PLASMA Routine 11/11/2024 3: 32 AM EDT MAGNESIUM, PLASMA Routine 11/11/2024 3:3 2 AM EDT COMPREHENSIVE METABOLIC PANEL, PLASMA Routine 11/11/2024 3:32 AM EDT COMPREHENSIVE METABOLIC PANEL, PLASMA Routine 11/10/2024 10:30 AM EDT CBC WITH AUTO DIFFERENTIAL Routine 11/10/2024 5:49 AM EDT PHOSPHORUS, PLASMA Routine 11/10/2024 5: 49 AM EDT MAGNESIUM, PLASMA Routine 11/10/2024 5:4 9 AM EDT BASIC METABOLIC PANEL, PLASMA Routine 11/10/2024 5:49 AM EDT INSERT PERIPHERAL IV Routine 11/09/2024 5:[address] ABDOMEN PELVIS W IV CONTRAST STAT 11/09/2024 8:52 AM EDT POCT GLUCOSE METER UNSOLICITED RESULTS Routine 11/09/2024 7:12 AM EDT CBC W/O DIFFERENTIAL Routine 11/09/2024 2:04 AM EDT PHOSPHORUS, PLASMA Routine 11/09/2024 2: 04 AM EDT MAGNESIUM, PLASMA Routine 11/09/2024 2:0 4 AM EDT BASIC METABOLIC PANEL, PLASMA Routine 11/09/2024 2:04 AM EDT TROPONIN T, HIGH SENSITIVITY, 2 HOUR, PLASMA Timed 11/08/2024 3:17 PM EDT ANTI XA LEVEL UNFRACTIONATED HEPARIN STAT 11/08/2024 1:57 PM EDT US ABDOMEN FOCUSED REGION STAT 11/08/2024 1:46 PM EDT ED HIV 1/2 ANTIBODY/ANTIGEN SCREEN WITH REFLEX TO HIV I/II DIFFERENTIATION STAT 11/08/2024 1:12 PM EDT ED PROTOCOL HIV 1/2 ANTIBODY/ANTIGEN SCREEN W/REFLEX TO HIV 1/2 ANTIBODY DIFFERENTIATION STAT 11/08/2024 1:12 PM EDT TROPONIN T, HIGH SENSITIVITY, 0 HOUR, PLASMA, REFLEX TO 2 HOUR STAT 11/08/2024 1:12 PM EDT N-TERMINAL PROBNP, PLASMA STAT 11/08/2024 1:12 PM EDT PROTHROMBIN TIME(PT) / INR STAT 11/08/2024 1:12 PM EDT CBC WITH AUTO DIFFERENTIAL STAT 11/08/2024 1:12 PM EDT COMPREHENSIVE METABOLIC PANEL, PLASMA STAT 11/08/2024 1:12 PM EDT ECG ADULT STAT 11/08/2024 11:25 AM EDT documented in this encounter Results * US Guided Needle Biopsy Liver (11/18/2024 3:31 PM EDT) Anatomical Region Laterality Modality Liver X-Ray Angiograph y Impressions 11/20/2024 12:24 PM EDT Successful ultrasound-guided liver mass biopsy. Successful angiography and bland particle embolization of arterial supply of hemorrhagic right hepatic mass. PLAN: -2 hours post sedation recovery. -Aggressive pain control regimen due to extensive embolization targeted area: 0.5 to 1 mg Dilaudid every 2 hours as needed for severe pain. -Following sedation recovery, patient to return to inpatient bed. -Referring provider to follow up on biopsy results. CRITICAL RESULT: No. COMMUNICATION: Per this written report. Preliminary report signed by Luis Miguel Estes MD on 11/18/2024 7:06 PM By electronically signing this report, I, the attending physician, attest that I was present for the entire procedure(s) and agree with the final edited report. Drafted by Luis Miguel Estes MD on 11/18/2024 4:40 PM Final report signed by Franko Nava MD on 11/20/2024 12:24 PM Narrative 11/20/2024 12:24 PM EDT CLINICAL INDICATION: 44-year-old female with history of metastatic endometrial cancer with metastases to the liver and spleen. CT abdomen pelvis 11/09/2024 demonstrated significant interval growth of liver masses compared to prior study in 2019, out of proportion to expected progression of disease, raising concern for intratumoral hemorrhage. Patient presents to [facility] for bland embolization of tumor. Additionally, rebiopsy of liver mass is planned due to possible progression. TECHNIQUE: Bearing Ring Assembler: Franko Nava MD Secondary Sales Account Coordinator: Luis Miguel Estes M.D. Rad Dose: 1674 mGy Medications: IV conscious sedation with continuous physiologic monitoring provided by a qualified healthcare professional using Versed 4.5 mg IV and Fentanyl 300 mcg IV. 1% Lidocaine SQ. Antibiotics: None. Duration of Conscious Sedation: Time out: 1430 close out: 1530 Procedure: After discussion of risks and benefits, informed written consent was obtained. Appropriate time out was performed to confirm patient identity and planned procedure and side. Strict hand hygiene protocol was observed. All personnel in the room were attired in surgical hat and mask. The operators were in surgical hat, mask, sterile gloves, and sterile gowns. The site was prepped with 2% chlorhexidine for cutaneous antisepsis followed by sterile barrier draping. ULTRASOUND-GUIDED LIVER BIOPSY: First, attention was directed to the liver mass biopsy. The patient was placed supine on the procedure table and initial scanning carried out. The skin overlying the planned tract was prepped and draped, and local anesthetic administered. One of the liver lesions in hepatic segment VII/VIII//Filemon was accessed under ultrasound guidance with a 17-gauge coaxial needle and position confirmed. Ultrasound images were sent to permanent storage in PACS. Via the coaxial needle, several cores were taken with an 18-gauge biopsy device. Once sampling was felt sufficient the needle was removed. Post biopsy scanning revealed no evidence of bleeding. A sterile dressing was applied to the puncture site. Specimens were sent to the pathology lab. CELIAC AND HEPATIC ANGIOGRAM AND EMBOLIZATION: Subsequently, attention was directed to embolization of liver mass. The patient was prepped and draped in the normal sterile fashion for femoral artery access. The right common femoral artery was identified in the groin. An infrainguinal site of access was marked on fluoroscopy. Overlying skin was anesthetized using 1% lidocaine. Lidocaine was also infiltrated in the chato - arterial soft tissues. A 5 mm transverse beatris was placed in the skin. Ultrasound guidance was used to evaluate potential access sites. The right common femoral artery was identified as adequate in caliber and patency for vascular access under real time ultrasound visualization of needle entry into the vessel. Local anesthetic was administered. Ultrasound guided access to the right common femoral artery was obtained with a 21 gauge Micropuncture needle. Ultrasound images were sent to permanent storage in PACS. After standard exchanges, a 0.035 inch Bentson wire was advanced. Access was secured using a 5 F vascular sheath. Using a 5 [place] contra 2 catheter, the celiac axis was catheterized. The position was confirmed with contrast injection. Using the Progreat microcatheter through the Contra 2 catheter, the microcatheter/wire was advanced into the common hepatic artery and positioned confirmed with contrast injection. Catheter was then advanced into the proper hepatic artery. Digital subtraction angiogram was performed, which demonstrated numerous arteries in a rounded distribution consistent with vascular supply of the hepatic mass demonstrated on comparison abdomen/pelvis CT. The catheter was then advanced into the right hepatic artery. Selective digital subtraction angiography of the right hepatic artery performed. With the catheter in this position, 10 mL of 250 um particles mixed with contrast were instilled while watching under fluoroscopic guidance. No significant reflux of contrast identified to suggest reflux of embolic material. Embolization proceeded to near stasis. Vascular staining in the region of the right hepatic artery branches was noted following this injection of embolization material. Next, the catheter was retracted to the proximal right hepatic artery. Selective digital subtraction angiography of the proximal right hepatic artery performed, demonstrating significant stasis of the right hepatic artery. With the catheter in this position, 10 mL of 500 um particles mixed with contrast were instilled while watching under fluoroscopic guidance. No significant reflux of contrast identified to suggest reflux of embolic material. Embolization proceeded to near stasis. Additional vascular staining was noted in the region of the tumor after this injection of embolization material. Once imaging and intervention had been completed, catheters were removed. Prior to sheath removal, a run was done at the groin to confirm ability to use a closure device. Hemostasis was obtained using an Angio-Seal. A sterile occlusive dressing was then applied. The patient tolerated the procedure well, with no immediate complication being recognized. COMPARISON: CT abdomen/pelvis 11/09/2024 FINDINGS: Preembolization angiography of the hepatic vasculature reveals extensively branching arterial supply within the area of tumor demonstrated on comparison CT abdomen and pelvis. Postembolization angiography of the hepatic vasculature reveals vascular staining and stasis in the region of the tumor. COMPLICATION: No. Procedure Note Franko Nava MD - 11/20/2024 CLINICAL INDICATION: 44-year-old female with history of metastatic endometrial cancer withmetastases to the liver and spleen. CT abdomen pelvis 11/09/2024demonstrated significant interval growth of liver masses compared to priorstudy in 2019, out of proportion to expected progression of disease,raising concern for intratumoral hemorrhage. Patient presents to [facility] embolization of tumor. Additionally, rebiopsy of liver mass isplanned due to possible progression. TECHNIQUE: Bearing Ring Assembler: Franko Nava MD Secondary Sales Account Coordinator: Luis Miguel Estes M.D. Rad Dose: 1674 mGy Medications: IV conscious sedation with continuous physiologic monitoringprovided by a qualified healthcare professional using Versed 4.5 mg IV andFentanyl 300 mcg IV. 1% Lidocaine SQ. Antibiotics: None. Duration of Conscious Sedation: Time out: 1430 close out: 1530 Procedure: After discussion of risks and benefits, informed written consent wasobtained. Appropriate time out was performed to confirm patient identityand planned procedure and side. Strict hand hygiene protocol was observed. All personnel in the room wereattired in surgical hat and mask. The operators were in surgical hat,mask, sterile gloves, and sterile gowns. The site was prepped with 2%chlorhexidine for cutaneous antisepsis followed by sterile barrierdraping. ULTRASOUND-GUIDED LIVER BIOPSY: First, attention was directed to the liver mass biopsy. The patient wasplaced supine on the procedure table and initial scanning carried out. Theskin overlying the planned tract was prepped and draped, and localanesthetic administered. One of the liver lesions in hepatic segmentVII/VIII//Filemon was accessed under ultrasound guidance with a 17-gaugecoaxial needle and position confirmed. Ultrasound images were sent topermanent storage in PACS. Via the coaxial needle, several cores weretaken with an 18-gauge biopsy device. Once sampling was felt sufficientthe needle was removed. Post biopsy scanning revealed no evidence ofbleeding. A sterile dressing was applied to the puncture site. Specimenswere sent to the pathology lab. CELIAC AND HEPATIC ANGIOGRAM AND EMBOLIZATION: Subsequently, attention was directed to embolization of liver mass. Thepatient was prepped and draped in the normal sterile fashion for femoralartery access. The right common femoral artery was identified in thegroin. An infrainguinal site of access was marked on fluoroscopy.Overlying skin was anesthetized using 1% lidocaine. Lidocaine was alsoinfiltrated in the chato - arterial soft tissues. A 5 mm transverse nickwas placed in the skin. Ultrasound guidance was used to evaluate potential access sites. Theright common femoral artery was identified as adequate in caliber andpatency for vascular access under real time ultrasound visualization ofneedle entry into the vessel. Local anesthetic was administered.Ultrasound guided access to the right common femoral artery was obtainedwith a 21 gauge Micropuncture needle. Ultrasound images were sent topermanent storage in PACS. After standard exchanges, a 0.035 inch Bentson wire was advanced. Accesswas secured using a 5 F vascular sheath. Using a 5 [place] contra 2catheter, the celiac axis was catheterized. The position was confirmedwith contrast injection. Using the Progreat microcatheter through the Contra 2 catheter, themicrocatheter/wire was advanced into the common hepatic artery andpositioned confirmed with contrast injection. Catheter was then advancedinto the proper hepatic artery. Digital subtraction angiogram wasperformed, which demonstrated numerous arteries in a rounded distributionconsistent with vascular supply of the hepatic mass demonstrated oncomparison abdomen/pelvis CT. The catheter was then advanced into the right hepatic artery. Selectivedigital subtraction angiography of the right hepatic artery performed.With the catheter in this position, 10 mL of 250 um particles mixed withcontrast were instilled while watching under fluoroscopic guidance. Nosignificant reflux of contrast identified to suggest reflux of embolicmaterial. Embolization proceeded to near stasis. Vascular staining in theregion of the right hepatic artery branches was noted following thisinjection of embolization material. Next, the catheter was retracted to the proximal right hepatic artery.Selective digital subtraction angiography of the proximal right hepaticartery performed, demonstrating significant stasis of the right hepaticartery. With the catheter in this position, 10 mL of 500 um particlesmixed with contrast were instilled while watching under fluoroscopicguidance. No significant reflux of contrast identified to suggest refluxof embolic material. Embolization proceeded to near stasis. Additionalvascular staining was noted in the region of the tumor after thisinjection of embolization material. Once imaging and intervention had been completed, catheters were removed.Prior to sheath removal, a run was done at the groin to confirm ability touse a closure device. Hemostasis was obtained using an Angio-Seal. Asterile occlusive dressing was then applied. The patient tolerated theprocedure well, with no immediate complication being recognized. COMPARISON: CT abdomen/pelvis 11/09/2024 FINDINGS: Preembolization angiography of the hepatic vasculature reveals extensivelybranching arterial supply within the area of tumor demonstrated oncomparison CT abdomen and pelvis. Postembolization angiography of the hepatic vasculature reveals vascularstaining and stasis in the region of the tumor. COMPLICATION: No. IMPRESSION: Successful ultrasound-guided liver mass biopsy. Successful angiography and bland particle embolization of arterial supplyof hemorrhagic right hepatic mass. PLAN: -2 hours post sedation recovery. -Aggressive pain control regimen due to extensive embolization targetedarea: 0.5 to 1 mg Dilaudid every 2 hours as needed for severe pain. -Following sedation recovery, patient to return to inpatient bed. -Referring provider to follow up on biopsy results. CRITICAL RESULT: No. COMMUNICATION: Per this written report. Preliminary report signed by Luis Miguel Estes MD on 11/18/2024 7:06PM By electronically signing this report, I, the attending physician, attestthat I was present for the entire procedure(s) and agree with the finaledited report. Drafted by Luis Miguel Estes MD on 11/18/2024 4:40 PM Final report signed by Franko Nava MD on 11/20/2024 12:24 PM us Franko Nava MD IMG US PROCEDURES Final Resu lt * IR Embolization Tumor or Ischemia or Infarction (11/18/2024 3:31 PM EDT) Anatomical Region Laterality Modality X-Ray Angiograph y Impressions 11/20/2024 12:24 PM EDT Successful ultrasound-guided liver mass biopsy. Successful angiography and bland particle embolization of arterial supply of hemorrhagic right hepatic mass. PLAN: -2 hours post sedation recovery. -Aggressive pain control regimen due to extensive embolization targeted area: 0.5 to 1 mg Dilaudid every 2 hours as needed for severe pain. -Following sedation recovery, patient to return to inpatient bed. -Referring provider to follow up on biopsy results. CRITICAL RESULT: No. COMMUNICATION: Per this written report. Preliminary report signed by Luis Miguel Estes MD on 11/18/2024 7:06 PM By electronically signing this report, I, the attending physician, attest that I was present for the entire procedure(s) and agree with the final edited report. Drafted by Luis Miguel Estes MD on 11/18/2024 4:40 PM Final report signed by Franko Nava MD on 11/20/2024 12:24 PM Narrative 11/20/2024 12:24 PM EDT CLINICAL INDICATION: 44-year-old female with history of metastatic endometrial cancer with metastases to the liver and spleen. CT abdomen pelvis 11/09/2024 demonstrated significant interval growth of liver masses compared to prior study in 2019, out of proportion to expected progression of disease, raising concern for intratumoral hemorrhage. Patient presents to [facility] for bland embolization of tumor. Additionally, rebiopsy of liver mass is planned due to possible progression. TECHNIQUE: Bearing Ring Assembler: Franko Nava MD Secondary Sales Account Coordinator: Luis Miguel Estes M.D. Rad Dose: 1674 mGy Medications: IV conscious sedation with continuous physiologic monitoring provided by a qualified healthcare professional using Versed 4.5 mg IV and Fentanyl 300 mcg IV. 1% Lidocaine SQ. Antibiotics: None. Duration of Conscious Sedation: Time out: 1430 close out: 1530 Procedure: After discussion of risks and benefits, informed written consent was obtained. Appropriate time out was performed to confirm patient identity and planned procedure and side. Strict hand hygiene protocol was observed. All personnel in the room were attired in surgical hat and mask. The operators were in surgical hat, mask, sterile gloves, and sterile gowns. The site was prepped with 2% chlorhexidine for cutaneous antisepsis followed by sterile barrier draping. ULTRASOUND-GUIDED LIVER BIOPSY: First, attention was directed to the liver mass biopsy. The patient was placed supine on the procedure table and initial scanning carried out. The skin overlying the planned tract was prepped and draped, and local anesthetic administered. One of the liver lesions in hepatic segment VII/VIII//Filemon was accessed under ultrasound guidance with a 17-gauge coaxial needle and position confirmed. Ultrasound images were sent to permanent storage in PACS. Via the coaxial needle, several cores were taken with an 18-gauge biopsy device. Once sampling was felt sufficient the needle was removed. Post biopsy scanning revealed no evidence of bleeding. A sterile dressing was applied to the puncture site. Specimens were sent to the pathology lab. CELIAC AND HEPATIC ANGIOGRAM AND EMBOLIZATION: Subsequently, attention was directed to embolization of liver mass. The patient was prepped and draped in the normal sterile fashion for femoral artery access. The right common femoral artery was identified in the groin. An infrainguinal site of access was marked on fluoroscopy. Overlying skin was anesthetized using 1% lidocaine. Lidocaine was also infiltrated in the chato - arterial soft tissues. A 5 mm transverse beatris was placed in the skin. Ultrasound guidance was used to evaluate potential access sites. The right common femoral artery was identified as adequate in caliber and patency for vascular access under real time ultrasound visualization of needle entry into the vessel. Local anesthetic was administered. Ultrasound guided access to the right common femoral artery was obtained with a 21 gauge Micropuncture needle. Ultrasound images were sent to permanent storage in PACS. After standard exchanges, a 0.035 inch Bentson wire was advanced. Access was secured using a 5 F vascular sheath. Using a 5 [place] contra 2 catheter, the celiac axis was catheterized. The position was confirmed with contrast injection. Using the Progreat microcatheter through the Contra 2 catheter, the microcatheter/wire was advanced into the common hepatic artery and positioned confirmed with contrast injection. Catheter was then advanced into the proper hepatic artery. Digital subtraction angiogram was performed, which demonstrated numerous arteries in a rounded distribution consistent with vascular supply of the hepatic mass demonstrated on comparison abdomen/pelvis CT. The catheter was then advanced into the right hepatic artery. Selective digital subtraction angiography of the right hepatic artery performed. With the catheter in this position, 10 mL of 250 um particles mixed with contrast were instilled while watching under fluoroscopic guidance. No significant reflux of contrast identified to suggest reflux of embolic material. Embolization proceeded to near stasis. Vascular staining in the region of the right hepatic artery branches was noted following this injection of embolization material. Next, the catheter was retracted to the proximal right hepatic artery. Selective digital subtraction angiography of the proximal right hepatic artery performed, demonstrating significant stasis of the right hepatic artery. With the catheter in this position, 10 mL of 500 um particles mixed with contrast were instilled while watching under fluoroscopic guidance. No significant reflux of contrast identified to suggest reflux of embolic material. Embolization proceeded to near stasis. Additional vascular staining was noted in the region of the tumor after this injection of embolization material. Once imaging and intervention had been completed, catheters were removed. Prior to sheath removal, a run was done at the groin to confirm ability to use a closure device. Hemostasis was obtained using an Angio-Seal. A sterile occlusive dressing was then applied. The patient tolerated the procedure well, with no immediate complication being recognized. COMPARISON: CT abdomen/pelvis 11/09/2024 FINDINGS: Preembolization angiography of the hepatic vasculature reveals extensively branching arterial supply within the area of tumor demonstrated on comparison CT abdomen and pelvis. Postembolization angiography of the hepatic vasculature reveals vascular staining and stasis in the region of the tumor. COMPLICATION: No. Procedure Note Franko Nava MD - 11/20/2024 CLINICAL INDICATION: 44-year-old female with history of metastatic endometrial cancer withmetastases to the liver and spleen. CT abdomen pelvis 11/09/2024demonstrated significant interval growth of liver masses compared to priorstudy in 2019, out of proportion to expected progression of disease,raising concern for intratumoral hemorrhage. Patient presents to [facility] embolization of tumor. Additionally, rebiopsy of liver mass isplanned due to possible progression. TECHNIQUE: Bearing Ring Assembler: Farnko Nava MD Secondary Sales Account Coordinator: Luis Miguel Estes M.D. Rad Dose: 1674 mGy Medications: IV conscious sedation with continuous physiologic monitoringprovided by a qualified healthcare professional using Versed 4.5 mg IV andFentanyl 300 mcg IV. 1% Lidocaine SQ. Antibiotics: None. Duration of Conscious Sedation: Time out: 1430 close out: 1530 Procedure: After discussion of risks and benefits, informed written consent wasobtained. Appropriate time out was performed to confirm patient identityand planned procedure and side. Strict hand hygiene protocol was observed. All personnel in the room wereattired in surgical hat and mask. The operators were in surgical hat,mask, sterile gloves, and sterile gowns. The site was prepped with 2%chlorhexidine for cutaneous antisepsis followed by sterile barrierdraping. ULTRASOUND-GUIDED LIVER BIOPSY: First, attention was directed to the liver mass biopsy. The patient wasplaced supine on the procedure table and initial scanning carried out. Theskin overlying the planned tract was prepped and draped, and localanesthetic administered. One of the liver lesions in hepatic segmentVII/VIII//Filemon was accessed under ultrasound guidance with a 17-gaugecoaxial needle and position confirmed. Ultrasound images were sent topermanent storage in PACS. Via the coaxial needle, several cores weretaken with an 18-gauge biopsy device. Once sampling was felt sufficientthe needle was removed. Post biopsy scanning revealed no evidence ofbleeding. A sterile dressing was applied to the puncture site. Specimenswere sent to the pathology lab. CELIAC AND HEPATIC ANGIOGRAM AND EMBOLIZATION: Subsequently, attention was directed to embolization of liver mass. Thepatient was prepped and draped in the normal sterile fashion for femoralartery access. The right common femoral artery was identified in thegroin. An infrainguinal site of access was marked on fluoroscopy.Overlying skin was anesthetized using 1% lidocaine. Lidocaine was alsoinfiltrated in the chato - arterial soft tissues. A 5 mm transverse nickwas placed in the skin. Ultrasound guidance was used to evaluate potential access sites. Theright common femoral artery was identified as adequate in caliber andpatency for vascular access under real time ultrasound visualization ofneedle entry into the vessel. Local anesthetic was administered.Ultrasound guided access to the right common femoral artery was obtainedwith a 21 gauge Micropuncture needle. Ultrasound images were sent topermanent storage in PACS. After standard exchanges, a 0.035 inch Bentson wire was advanced. Accesswas secured using a 5 F vascular sheath. Using a 5 [place] contra 2catheter, the celiac axis was catheterized. The position was confirmedwith contrast injection. Using the Progreat microcatheter through the Contra 2 catheter, themicrocatheter/wire was advanced into the common hepatic artery andpositioned confirmed with contrast injection. Catheter was then advancedinto the proper hepatic artery. Digital subtraction angiogram wasperformed, which demonstrated numerous arteries in a rounded distributionconsistent with vascular supply of the hepatic mass demonstrated oncomparison abdomen/pelvis CT. The catheter was then advanced into the right hepatic artery. Selectivedigital subtraction angiography of the right hepatic artery performed.With the catheter in this position, 10 mL of 250 um particles mixed withcontrast were instilled while watching under fluoroscopic guidance. Nosignificant reflux of contrast identified to suggest reflux of embolicmaterial. Embolization proceeded to near stasis. Vascular staining in theregion of the right hepatic artery branches was noted following thisinjection of embolization material. Next, the catheter was retracted to the proximal right hepatic artery.Selective digital subtraction angiography of the proximal right hepaticartery performed, demonstrating significant stasis of the right hepaticartery. With the catheter in this position, 10 mL of 500 um particlesmixed with contrast were instilled while watching under fluoroscopicguidance. No significant reflux of contrast identified to suggest refluxof embolic material. Embolization proceeded to near stasis. Additionalvascular staining was noted in the region of the tumor after thisinjection of embolization material. Once imaging and intervention had been completed, catheters were removed.Prior to sheath removal, a run was done at the groin to confirm ability touse a closure device. Hemostasis was obtained using an Angio-Seal. Asterile occlusive dressing was then applied. The patient tolerated theprocedure well, with no immediate complication being recognized. COMPARISON: CT abdomen/pelvis 11/09/2024 FINDINGS: Preembolization angiography of the hepatic vasculature reveals extensivelybranching arterial supply within the area of tumor demonstrated oncomparison CT abdomen and pelvis. Postembolization angiography of the hepatic vasculature reveals vascularstaining and stasis in the region of the tumor. COMPLICATION: No. IMPRESSION: Successful ultrasound-guided liver mass biopsy. Successful angiography and bland particle embolization of arterial supplyof hemorrhagic right hepatic mass. PLAN: -2 hours post sedation recovery. -Aggressive pain control regimen due to extensive embolization targetedarea: 0.5 to 1 mg Dilaudid every 2 hours as needed for severe pain. -Following sedation recovery, patient to return to inpatient bed. -Referring provider to follow up on biopsy results. CRITICAL RESULT: No. COMMUNICATION: Per this written report. Preliminary report signed by Luis Miguel Estes MD on 11/18/2024 7:06PM By electronically signing this report, I, the attending physician, attestthat I was present for the entire procedure(s) and agree with the finaledited report. Drafted by Luis Miguel Estes MD on 11/18/2024 4:40 PM Final report signed by Franko Nava MD on 11/20/2024 12:24 PM us Franko Nava MD IMG IR PROCEDURES Final Resu lt * (ABNORMAL) [facility] [place] Cancer Seek Hybrid??? + IHCs and Other Tests by Tumor Type (11/18/2024 2:55 PM EDT) [facility] PD-L1 (22C3) Negative 2024 1:58 PM EDT [facility] Mismatch Repair Status Proficient (Intact) 11/30/2024 1:58 PM EDT [facility] Genomic Loss of Heterozygosity - [place] Low 1% 11/30/2024 1:58 PM EDT [facility] Microsatellite Instability - [place] Stable 11/30/2024 1:58 PM EDT [facility] Tumor Mutational [place] - [place] Low 1 per Mb 11/30/2024 1:58 PM EDT [facility] [facility] Estrogen Receptor Positive 11/30/2024 1:58 PM EDT [facility] [facility] Her2/Shoaib Negative 11/30/2024 1:58 PM EDT [facility] [facility] Progesterone Receptor Negative 11/30/2024 1:58 PM EDT [facility] Regalister ELIZABET JAIN MLH1 Intact nuclear expression 11/30/2024 1:58 PM EDT [facility] MSH2 Intact nuclear expression 11/30/2024 1:58 PM EDT [facility] [facility] MSH6 Intact nuclear expression 11/30/2024 1:58 PM EDT [facility] [employer] PMS2 Intact nuclear expression 11/30/2024 1:58 PM EDT [facility] [facility] HLA-A - [place] -,A*02:01 11/30/2024 1:58 PM EDT [facility] HLA-B - [place] B*40:01,B*44: 02 11/30/2024 1:58 PM EDT [facility] HLA-C - [place] C*03:04,C*05: 01 11/30/2024 1:58 PM EDT [facility] Tissue Non-blood Collection / Unknown 11/18/2024 2:55 PM EDT 11/21/2024 1:03 PM EDT Narrative This result has genomic variants that were not included in this document. us Karol Jane MD LAB MOL DX NO SOURCE Final Re sult [facility] [address] [address], * Phosphorus, Plasma (11/14/2024 1:07 AM EDT) Phosphorus, Plasma 3.6 2.5 - 4.5 mg/dL 11/14/2024 2:18 AM EDT [facility] Blood Venous blood specimen / Unknown Venipuncture / Unknown 11/14/2024 1:07 AM EDT 11/14/2024 1:49 AM EDT Korey Rolle MD LAB BLOOD ORDERABLES Final Result [facility] [address] [place] [address] * Magnesium, Plasma (11/14/2024 1:07 AM EDT) Magnesium, Plasma 1.9 1.9 - 2.4 mg/dL 11/14/2024 2:18 AM EDT [facility] Blood Venous blood specimen / Unknown Venipuncture / Unknown 11/14/2024 1:07 AM EDT 11/14/2024 1:49 AM EDT Korey Rolle MD LAB BLOOD ORDERABLES Final Result Performing Organization Address City/[facility]/ZIP Co de Phone Number [facility] [address] [place] [address] * (ABNORMAL) Ionized calcium, whole blood (11/14/2024 1:07 AM EDT) Ionized Calcium, Whole Blood 4.4(L) 4.6 - 5.1 mg/dL LAB HEMATOLOGY METHOD 11/14/2024 1:58 AM EDT [facility] Blood Venous blood specimen / Unknown Venipuncture / Unknown 11/14/2024 1:07 AM EDT 11/14/2024 1:50 AM EDT us Korey Rolle MD LAB BLOOD ORDERABLES Final Result [facility] [address] [place] [address] * (ABNORMAL) Basic metabolic panel (11/14/2024 1:07 AM EDT) Glucose, Plasma 85 74 - 99 mg/dL 11/14/2024 2:18 AM EDT [facility] BUN, Plasma 12 7 - 21 mg/dL 11/14/2024 2:18 AM EDT [facility] Creatinine, Plasma 0.99 0.60 - 1.10 mg/dL 11/14/2024 2:18 AM EDT [facility] BUN/Creatinine Ratio 12 11/14/2024 2:18 AM EDT [facility] Sodium, Plasma 142 136 - 145 mmol/L 11/14/2024 2:18 AM EDT [facility] Potassium, Plasma 3.7 3.6 - 4.9 mmol/L 11/14/2024 2:18 AM EDT [facility] Chloride, Plasma 108(H) 97 - 107 mmol/L 11/14/2024 2:18 AM EDT [facility] CO2, Plasma 21(L) 22 - 29 mmol/L 11/14/2024 2:18 AM EDT [facility] Anion Gap 13 6 - 16 mmol/L 11/14/2024 2:18 AM EDT [facility] Total Calcium, Plasma 8.1(L) 8.9 - 10.2 mg/dL 11/14/2024 2:18 AM EDT [facility] eGFRcr 71.4 mL/min/1.7 3m*2 11/14/2024 2:18 AM EDT [facility] Comment:Reported eGFRcr in m L/min/1.73m2 is based the CKD-EPI 2020 equation that does not use a race coefficient. Blood Venous blood specimen / Unknown Venipuncture / Unknown 11/14/2024 1:07 AM EDT 11/14/2024 1:49 AM EDT us Korey Rolle MD LAB BLOOD ORDERABLES Final Result [facility] [address] [place] [address] * (ABNORMAL) CBC (11/14/2024 1:07 AM EDT) WBC Count 9.73 3.70 - 10.30 10*3/uL LAB HEMATOLOGY METHOD 11/14/2024 1:57 AM EDT [facility] RBC Count 2.92(L) 3.90 - 5.20 10*6/uL LAB HEMATOLOGY METHOD 11/14/2024 1:57 AM EDT [facility] HGB 7.8(L) 11.2 - 15.7 g/dL LAB HEMATOLOGY METHOD 11/14/2024 1:57 AM EDT [facility] HCT 24.9(L) 34.0 - 45.0 % LAB HEMATOLOGY METHOD 11/14/2024 1:57 AM EDT [facility] Platelet Count 237 155 - 369 10*3/uL LAB HEMATOLOGY METHOD 11/14/2024 1:57 AM EDT [facility] MCV 85 79 - 98 fL LAB HEMATOLOGY METHOD 11/14/2024 1:57 AM EDT [facility] MCH 26.7 26.0 - 32.0 pg LAB HEMATOLOGY METHOD 11/14/2024 1:57 AM EDT [facility] MCHC 31.3 30.7 - 35.5 g/dL LAB HEMATOLOGY METHOD 11/14/2024 1:57 AM EDT [facility] RDW 16.6(H) 11.5 - 14.5 % LAB HEMATOLOGY METHOD 11/14/2024 1:57 AM EDT [facility] MPV 9.6 8.8 - 12.5 fL LAB HEMATOLOGY METHOD 11/14/2024 1:57 AM EDT [facility] nRBC 0.0 <=0.0 per 100 WBCs LAB HEMATOLOGY METHOD 11/14/2024 1:57 AM EDT [facility] Blood Venous blood specimen / Unknown Venipuncture / Unknown 11/14/2024 1:07 AM EDT 11/14/2024 1:49 AM EDT Korey Rolle MD LAB BLOOD ORDERABLES Final Result [facility] [address] [place] [address] * (ABNORMAL) Fibrinogen (11/14/2024 1:07 AM EDT) Fibrinogen, Quantitative (Clottable) 512(H) 208 - 459 mg/dL LAB COAGULATION METHOD 11/14/2024 2:09 AM EDT [facility] Blood Venous blood specimen / Unknown Venipuncture / Unknown 11/14/2024 1:07 AM EDT 11/14/2024 1:48 AM EDT Karol Jane MD LAB BLOOD ORDERABLES Final Re sult Performing Organization Address [facility] Co de Phone Number [facility] [address] [place] [address] * (ABNORMAL) APTT (11/14/2024 1:07 AM EDT) aPTT 23(L) 25 - 35 sec LAB COAGULATION METHOD 11/14/2024 2:09 AM EDT [facility] Blood Venous blood specimen / Unknown Venipuncture / Unknown 11/14/2024 1:07 AM EDT 11/14/2024 1:48 AM EDT Karol Jane MD LAB BLOOD ORDERABLES Final Re sult Performing Organization Address [facility] Co de Phone Number [facility] [address] [place] [address] * (ABNORMAL) Protime-INR (11/14/2024 1:07 AM EDT) Prothrombin Time 14.8(H) 12.0 - 14.3 sec LAB COAGULATION METHOD 11/14/2024 2:09 AM EDT [facility] INR 1.2(H) 0.9 - 1.1 LAB COAGULATION METHOD 11/14/2024 2:09 AM EDT [facility] Blood Venous blood specimen / Unknown Venipuncture / Unknown 11/14/2024 1:07 AM EDT 11/14/2024 1:48 AM EDT Narrative [facility] - 11/14/2024 2:09 AM EDT OPTIMAL INR RANGES FOR PATIENT ON ORAL ANTICOAGULANT THERAPY Prevention of venous thromboembolism INR 2.0 to 3.0 In patients with heart disease: Atrial fibrillation INR 2.0 to 3.0 Valvular heart disease INR 2.0 to 3.0 Tissue heart valves INR 2.0 to 3.0 Mechanical prosthetic valves INR 2.5 to 3.5 Prevention of recurrent TN INR 2.5 to 3.5 Karol Jane MD LAB BLOOD ORDERABLES Final Re sult Performing Organization Address [facility]/[place] [address] * Phosphorus, Plasma (11/13/2024 3:01 AM EDT) Phosphorus, Plasma 3.6 2.5 - 4.5 mg/dL 11/13/2024 3:34 AM EDT [facility] Blood Venous blood specimen / Unknown Venipuncture / Unknown 11/13/2024 3:01 AM EDT 11/13/2024 3:05 AM EDT Korey Rolle MD LAB BLOOD ORDERABLES Final Result Performing Organization Address [facility] [place] [address] * Magnesium, Plasma (11/13/2024 3:01 AM EDT) Magnesium, Plasma 2.0 1.9 - 2.4 mg/dL 11/13/2024 3:34 AM EDT [facility] Blood Venous blood specimen / Unknown Venipuncture / Unknown 11/13/2024 3:01 AM EDT 11/13/2024 3:05 AM EDT Korey Rolle MD LAB BLOOD ORDERABLES Final Result Performing Organization Address City/[facility] Co de Phone Number [facility] [address] [place] [address] * (ABNORMAL) Ionized calcium, whole blood (11/13/2024 3:01 AM EDT) Ionized Calcium, Whole Blood 4.3(L) 4.6 - 5.1 mg/dL LAB HEMATOLOGY METHOD 11/13/2024 3:09 AM EDT [facility] Blood Venous blood specimen / Unknown Venipuncture / Unknown 11/13/2024 3:01 AM EDT 11/13/2024 3:07 AM EDT Korey Rolle MD LAB BLOOD ORDERABLES Final Result [facility] [address] [place] [address] * (ABNORMAL) Basic metabolic panel (11/13/2024 3:01 AM EDT) Glucose, Plasma 95 74 - 99 mg/dL 11/13/2024 3:34 AM EDT [facility] BUN, Plasma 14 7 - 21 mg/dL 11/13/2024 3:34 AM EDT [facility] Creatinine, Plasma 1.06 0.60 - 1.10 mg/dL 11/13/2024 3:34 AM EDT [facility] BUN/Creatinine Ratio 13 11/13/2024 3:34 AM EDT [facility] Sodium, Plasma 141 136 - 145 mmol/L 11/13/2024 3:34 AM EDT [facility] Potassium, Plasma 3.9 3.6 - 4.9 mmol/L 11/13/2024 3:34 AM EDT [facility] Chloride, Plasma 110(H) 97 - 107 mmol/L 11/13/2024 3:34 AM EDT [facility] CO2, Plasma 21(L) 22 - 29 mmol/L 11/13/2024 3:34 AM EDT [facility] Anion Gap 10 6 - 16 mmol/L 11/13/2024 3:34 AM EDT [facility] Total Calcium, Plasma 7.9(L) 8.9 - 10.2 mg/dL 11/13/2024 3:34 AM EDT [facility] eGFRcr 65.7 mL/min/1.7 3m*2 11/13/2024 3:34 AM EDT [facility] Comment:Reported eGFRcr in m L/min/1.73m2 is based the CKD-EPI 2020 equation that does not use a race coefficient. Blood Venous blood specimen / Unknown Venipuncture / Unknown 11/13/2024 3:01 AM EDT 11/13/2024 3:05 AM EDT Korey Rolle MD LAB BLOOD ORDERABLES Final Result [facility] [address] [place] [address] * (ABNORMAL) CBC (11/13/2024 3:01 AM EDT) WBC Count 9.57 3.70 - 10.30 10*3/uL LAB HEMATOLOGY METHOD 11/13/2024 3:16 AM EDT [facility] RBC Count 2.75(L) 3.90 - 5.20 10*6/uL LAB HEMATOLOGY METHOD 11/13/2024 3:16 AM EDT [facility] HGB 7.4(L) 11.2 - 15.7 g/dL LAB HEMATOLOGY METHOD 11/13/2024 3:16 AM EDT [facility] HCT 23.2(L) 34.0 - 45.0 % LAB HEMATOLOGY METHOD 11/13/2024 3:16 AM EDT [facility] Platelet Count 228 155 - 369 10*3/uL LAB HEMATOLOGY METHOD 11/13/2024 3:16 AM EDT [facility] MCV 84 79 - 98 fL LAB HEMATOLOGY METHOD 11/13/2024 3:16 AM EDT [facility] MCH 26.9 26.0 - 32.0 pg LAB HEMATOLOGY METHOD 11/13/2024 3:16 AM EDT [facility] MCHC 31.9 30.7 - 35.5 g/dL LAB HEMATOLOGY METHOD 11/13/2024 3:16 AM EDT [facility] RDW 16.6(H) 11.5 - 14.5 % LAB HEMATOLOGY METHOD 11/13/2024 3:16 AM EDT [facility] MPV 9.7 8.8 - 12.5 fL LAB HEMATOLOGY METHOD 11/13/2024 3:16 AM EDT [facility] nRBC 0.0 <=0.0 per 100 WBCs LAB HEMATOLOGY METHOD 11/13/2024 3:16 AM EDT [facility] Blood Venous blood specimen / Unknown Venipuncture / Unknown 11/13/2024 3:01 AM EDT 11/13/2024 3:05 AM EDT Korey Rolle MD LAB BLOOD ORDERABLES Final Result Performing Organization Address City/[facility]/ZIP Co de Phone Number [facility] [address] [place] [address] * PERIPHERAL IV (SMARTFORM LINK) (11/13/2024 2:59 AM EDT) Narrative Maurice Robertson RN - 11/13/2024 2:59 AM EDT Maurice Robertson RN 11/13/2024 2:59 AM Insert peripheral IV Performed by: Maurice Robertson RN Authorized by: Korey Rolle MD Hand hygiene: Hand hygiene performed prior to insertion Inserted using aseptic techniques: Yes Preparation: Skin prepped with chg Orientation: Right Location: Forearm Catheter placed: Peripheral IV Catheter size: 20g/2.00in Line Technique: Ultrasound Guidance Number of attempts: 1 IV flushes: Without difficulty and positive blood return noted and IV luer locked Patient tolerance: Patient tolerated the procedure well and there were no complications Patient comfort measures used: Distraction and position of comfort IV site covered with: Transparent semipermeable dressing Korey Rolle MD IV THERAPY ORDERABLES Sonali l Result * Phosphorus, Plasma (11/12/2024 10:59 AM EDT) Phosphorus, Plasma 3.3 2.5 - 4.5 mg/dL 11/12/2024 12:15 PM EDT [facility] Blood Venous blood specimen / Unknown Venipuncture / Unknown 11/12/2024 10:59 AM EDT 11/12/2024 11:12 AM EDT Korey Rolle MD LAB BLOOD ORDERABLES Final Result Performing Organization Address City/[facility]/ZIP Co de Phone Number [facility] [address] [place] [address] * (ABNORMAL) Magnesium, Plasma (11/12/2024 10:59 AM EDT) Magnesium, Plasma 1.7(L) 1.9 - 2.4 mg/dL 11/12/2024 12:15 PM EDT [facility] Blood Venous blood specimen / Unknown Venipuncture / Unknown 11/12/2024 10:59 AM EDT 11/12/2024 11:12 AM EDT us Korey Rolle MD LAB BLOOD ORDERABLES Final Result Performing Organization Address [facility]/ZIP Co de Phone Number [facility] [address] [place] [address] * (ABNORMAL) Ionized calcium, whole blood (11/12/2024 10:59 AM EDT) Pathologist [facility] Ionized Calcium, Whole Blood 4.5(L) 4.6 - 5.1 mg/dL LAB HEMATOLOGY METHOD 11/12/2024 11:08 AM EDT [facility] Blood Venous blood specimen / Unknown Venipuncture / Unknown 11/12/2024 10:59 AM EDT 11/12/2024 11:07 AM EDT us Korey Rolle MD LAB BLOOD ORDERABLES Final Result Performing Organization Address [facility] Co de Phone Number [facility] [address] [place] [address] * (ABNORMAL) Basic metabolic panel (11/12/2024 10:59 AM EDT) Pathologist [facility] Glucose, Plasma 89 74 - 99 mg/dL 11/12/2024 12:15 PM EDT [facility] BUN, Plasma 16 7 - 21 mg/dL 11/12/2024 12:15 PM EDT [facility] Creatinine, Plasma 1.15(H) 0.60 - 1.10 mg/dL 11/12/2024 12:15 PM EDT [facility] BUN/Creatinine Ratio 14 11/12/2024 12:15 PM EDT [facility] Sodium, Plasma 141 136 - 145 mmol/L 11/12/2024 12:15 PM EDT [facility] Potassium, Plasma 3.7 3.6 - 4.9 mmol/L 11/12/2024 12:15 PM EDT [facility] Chloride, Plasma 109(H) 97 - 107 mmol/L 11/12/2024 12:15 PM EDT [facility] CO2, Plasma 21(L) 22 - 29 mmol/L 11/12/2024 12:15 PM EDT [facility] Anion Gap 11 6 - 16 mmol/L 11/12/2024 12:15 PM EDT [facility] Total Calcium, Plasma 8.5(L) 8.9 - 10.2 mg/dL 11/12/2024 12:15 PM EDT [facility] eGFRcr 59.6 mL/min/1.7 3m*2 11/12/2024 12:15 PM EDT [facility] Comment:Reported eGFRcr in m L/min/1.73m2 is based the CKD-EPI 2020 equation that does not use a race coefficient. Blood Venous blood specimen / Unknown Venipuncture / Unknown 11/12/2024 10:59 AM EDT 11/12/2024 11:12 AM EDT Korey Rolle MD LAB BLOOD ORDERABLES Final Result [facility] [address] [place] [address] * (ABNORMAL) CBC (11/12/2024 10:59 AM EDT) WBC Count 10.21 3.70 - 10.30 10*3/uL LAB HEMATOLOGY METHOD 11/12/2024 11:32 AM EDT [facility] RBC Count 2.96(L) 3.90 - 5.20 10*6/uL LAB HEMATOLOGY METHOD 11/12/2024 11:32 AM EDT [facility] HGB 7.8(L) 11.2 - 15.7 g/dL LAB HEMATOLOGY METHOD 11/12/2024 11:32 AM EDT [facility] HCT 25.1(L) 34.0 - 45.0 % LAB HEMATOLOGY METHOD 11/12/2024 11:32 AM EDT [facility] Platelet Count 266 155 - 369 10*3/uL LAB HEMATOLOGY METHOD 11/12/2024 11:32 AM EDT [facility] MCV 85 79 - 98 fL LAB HEMATOLOGY METHOD 11/12/2024 11:32 AM EDT [facility] MCH 26.4 26.0 - 32.0 pg LAB HEMATOLOGY METHOD 11/12/2024 11:32 AM EDT [facility] MCHC 31.1 30.7 - 35.5 g/dL LAB HEMATOLOGY METHOD 11/12/2024 11:32 AM EDT [facility] RDW 16.4(H) 11.5 - 14.5 % LAB HEMATOLOGY METHOD 11/12/2024 11:32 AM EDT [facility] MPV 9.8 8.8 - 12.5 fL LAB HEMATOLOGY METHOD 11/12/2024 11:32 AM EDT [facility] nRBC 0.0 <=0.0 per 100 WBCs LAB HEMATOLOGY METHOD 11/12/2024 11:32 AM EDT [facility] Blood Venous blood specimen / Unknown Venipuncture / Unknown 11/12/2024 10:59 AM EDT 11/12/2024 11:25 AM EDT Korey Rolle MD LAB BLOOD ORDERABLES Final Result [facility] [address] [place] [address] * Comprehensive GI Panel by PCR (11/11/2024 8:01 PM EDT) Campylobacter PCR Result Not Detected Not Detected 11/12/2024 5:52 AM EDT [facility] Plesiomonas shigelloides PCR Result Not Detected Not Detected 11/12/2024 5:52 AM EDT [facility] Salmonella PCR Result Not Detected Not Detected 11/12/2024 5:52 AM EDT [facility] Vibrio species PCR Result Not Detected Not Detected 11/12/2024 5:52 AM EDT [facility] Vibrio cholerae PCR Result Not Detected Not Detected 11/12/2024 5:52 AM EDT [facility] Yersinia enterocolitica PCR Result Not Detected Not Detected 11/12/2024 5:52 AM EDT [facility] Enteroaggregative E. coli (EAEC) PCR Result Not Detected Not Detected 11/12/2024 5:52 AM EDT [facility] Enteropathogenic E. coli (EPEC) PCR Result Not Detected Not Detected 11/12/2024 5:52 AM EDT [facility] Enterotoxigenic E. coli (ETEC) lt/st PCR Result Not Detected Not Detected 11/12/2024 5:52 AM EDT [facility] Shiga-like Toxin-Producing E.coli (STEC) stx1/stx2 PCR Resu Not Detected Not Detected 11/12/2024 5:52 AM EDT [facility] E coli 0157 PCR Result Not Detected Not Detected 11/12/2024 5:52 AM EDT [facility] Shigella/Enteroinvas christal E. coli (EIEC) PCR Result Not Detected Not Detected 11/12/2024 5:52 AM EDT [facility] Cryptosporidium PCR Result Not Detected Not Detected 11/12/2024 5:52 AM EDT [facility] Cyclospora cayetanensis PCR Result Not Detected Not Detected 11/12/2024 5:52 AM EDT [facility] Entamoeba histolytica PCR Result Not Detected Not Detected 11/12/2024 5:52 AM EDT [facility] Giardia duodenalis (aka Giardia lamblia) PCR Result Not Detected Not Detected 11/12/2024 5:52 AM EDT [facility] Adenovirus F 40/41 PCR Result Not Detected Not Detected 11/12/2024 5:52 AM EDT [facility] Astrovirus PCR Result Not Detected Not Detected 11/12/2024 5:52 AM EDT [facility] Norovirus GI/GII PCR Result Not Detected Not Detected 11/12/2024 5:52 AM EDT [facility] Rotavirus A PCR Result Not Detected Not Detected 11/12/2024 5:52 AM EDT [facility] Sapovirus PCR Result Not Detected Not Detected 11/12/2024 5:52 AM EDT [facility] Stool Rectum structure / Unknown Non-blood Collection / Unknown 11/11/2024 8:01 PM EDT 11/11/2024 8:13 PM EDT [facility] - 11/12/2024 5:52 AM EDT This specimen was tested for the following analytes: Campylobacter species, Plesiomonas shigelloides, Salmonella species, Vibrio species, Vibrio cholerae, Yersinia enterolitica, Enteroaggregative E. coli (EAEC), Enteropathogenic E. Coli (EPEC), Enterotoxigenic E. coli (ETEC), Shiga-like toxin-producing E. coli (STEC), Shigella/Enteroinvasive E. coli (EIEC), Cryptosporidium, Cyclospora cayetanensis, Entamoeba histolytica, Giardia lamblia, Adenovirus f40/41, Astrovirus, Norovirus GI/GII, Rotavirus A, and Sapovirus. Note: Clostridium difficile toxin a/b will no longer be resulted using this platform. Please order the Clostridium difficile by PCR assay if clinically indicated. Korey Rolle MD LAB MICROBIOLOGY - GENERAL ORDERABLES Final Result Performing Organization Address [facility] [place] [address] * Clostridiodes (Clostridium) difficile PCR (11/11/2024 8:01 PM EDT) C difficile PCR toxin B gene DNA Result Not Detected Not Detected 11/11/2024 9:22 PM EDT [facility] Stool Rectum structure / Unknown Non-blood Collection / Unknown 11/11/2024 8:01 PM EDT 11/11/2024 8:13 PM EDT Narrative [facility] - 11/11/2024 9:22 PM EDT This test is FDA approved for use with liquid stool specimens. This test is used for clinical purposes. It should not be regarded as investigational or for research. This laboratory is certified under the Clinical Laboratory Improvement Amendments of 1988 (CLIA-88) as qualified to perform high complexity clinical laboratory testing. Korey Rolle MD LAB MICROBIOLOGY - GENERAL ORDERABLES Final Result Performing Organization Address [facility] [place] [address] * CT Chest wo IV Contrast (11/11/2024 9:07 AM EDT) Anatomical Region Laterality Modality Chest Computed Tomogra phy Impressions 11/11/2024 10:17 AM EDT New right basilar consolidation and small to moderate right pleural effusion. Similar appearance of the hepatic masses. CRITICAL RESULT: No. COMMUNICATION: Per this written report. Preliminary report signed by Dariusz Boyd MD on 11/11/2024 9:58 AM By electronically signing this report, I, the attending physician, attest that I have personally reviewed the images/data for the above examination(s) and agree with the final edited report. Drafted by Dariusz Boyd MD on 11/11/2024 9:44 AM Final report signed by Jan Alfonso MD on 11/11/2024 10:17 AM Narrative 11/11/2024 10:17 AM EDT CLINICAL INDICATION: Metastatic disease evaluation TECHNIQUE: Multiple CT helical images were obtained from thoracic inlet through upper abdomen without administration of IV contrast. The imaging protocol used in this examination was optimized to achieve diagnostic quality with the lowest possible radiation dose in accordance with the principles of ALARA (As Low As Reasonably Achievable). COMPARISON: 09/23/2018. CT abdomen pelvis 11/09/2024 FINDINGS: Mediastinum and Pleura: No mediastinal or hilar adenopathy. Stable calcified mediastinal and hilar nodes. Small to moderate right pleural effusion, new from prior. No pericardial effusion. Lungs: New ight basilar consolidation. Some right lung atelectasis. Left lung is clear. Upper Abdomen: Redemonstrated hypoattenuating, heterogenous hepatic lesions measuring up to 15.6 cm in the hepatic dome (series 2, image 76). Musculoskeletal: No suspicious lytic or sclerotic lesion. Procedure Note Jan Alfonso MD - 11/11/2024 CLINICAL INDICATION: Metastatic disease evaluation TECHNIQUE: Multiple CT helical images were obtained from thoracic inlet through upperabdomen without administration of IV contrast. The imaging protocol used in this examination was optimized to achievediagnostic quality with the lowest possible radiation dose in accordancewith the principles of ALARA (As Low As Reasonably Achievable). COMPARISON: 09/23/2018. CT abdomen pelvis 11/09/2024 FINDINGS: Mediastinum and Pleura: No mediastinal or hilar adenopathy. Stablecalcified mediastinal and hilar nodes. Small to moderate right pleuraleffusion, new from prior. No pericardial effusion. Lungs: New ight basilar consolidation. Some right lung atelectasis. Leftlung is clear. Upper Abdomen: Redemonstrated hypoattenuating, heterogenous hepaticlesions measuring up to 15.6 cm in the hepatic dome (series 2, image76). Musculoskeletal: No suspicious lytic or sclerotic lesion. IMPRESSION: New right basilar consolidation and small to moderate right pleuraleffusion. Similar appearance of the hepatic masses. CRITICAL RESULT: No. COMMUNICATION: Per this written report. Preliminary report signed by Dariusz Boyd MD on 11/11/2024 9:58 AM By electronically signing this report, I, the attending physician, attestthat I have personally reviewed the images/data for the aboveexamination(s) and agree with the final edited report. Drafted by Dariusz Boyd MD on 11/11/2024 9:44 AM Final report signed by Jan Alfonso MD on 11/11/2024 10:17 AM Jennifer Capps PAD EXTRACTOR TENDER IMG CT PROCEDURES Final R esult * Sodium, urine, random (11/11/2024 3:34 AM EDT) Sodium, Urine 76 mmol/L 11/11/2024 4:13 AM EDT [facility] Urine Urine specimen obtained by clean catch procedure / Unknown Non-blood Collection / Unknown 11/11/2024 3:34 AM EDT 11/11/2024 3:43 AM EDT Morelia Galvez MD LAB URINE ORDERABLES Final Result [facility] [address] [place] [address] * Creatinine, urine, random (11/11/2024 3:34 AM EDT) Creatinine, Urine 105 mg/dL 11/11/2024 4:13 AM EDT [facility] Urine Urine specimen obtained by clean catch procedure / Unknown Non-blood Collection / Unknown 11/11/2024 3:34 AM EDT 11/11/2024 3:43 AM EDT Morelia Galvez MD LAB URINE ORDERABLES Final Result [facility] [address] [place] [address] * (ABNORMAL) Comprehensive Metabolic Panel, Plasma (11/11/2024 3:32 AM EDT) Glucose, Plasma 98 74 - 99 mg/dL 11/11/2024 4:27 AM EDT [facility] BUN, Plasma 18 7 - 21 mg/dL 11/11/2024 4:27 AM EDT [facility] Creatinine, Plasma 1.46(H) 0.60 - 1.10 mg/dL 11/11/2024 4:27 AM EDT [facility] BUN/Creatinine Ratio 12 11/11/2024 4:27 AM EDT [facility] Sodium, Plasma 142 136 - 145 mmol/L 11/11/2024 4:27 AM EDT [facility] Potassium, Plasma 4.1 3.6 - 4.9 mmol/L 11/11/2024 4:27 AM EDT [facility] Chloride, Plasma 111(H) 97 - 107 mmol/L 11/11/2024 4:27 AM EDT [facility] CO2, Plasma 19(L) 22 - 29 mmol/L 11/11/2024 4:27 AM EDT [facility] Anion Gap 12 6 - 16 mmol/L 11/11/2024 4:27 AM EDT [facility] Total Calcium, Plasma 8.3(L) 8.9 - 10.2 mg/dL 11/11/2024 4:27 AM EDT [facility] Total Protein 6.0(L) 6.3 - 7.9 g/dL 11/11/2024 4:27 AM EDT [facility] Albumin, Plasma 2.5(L) 3.5 - 5.2 g/dL 11/11/2024 4:27 AM EDT [facility] AST, Plasma 61(H) 10 - 35 U/L 11/11/2024 4:27 AM EDT [facility] ALT, Plasma 29 10 - 35 U/L 11/11/2024 4:27 AM EDT [facility] Alkaline Phosphatase, Plasma 238(H) 35 - 104 U/L 11/11/2024 4:27 AM EDT [facility] Total Bilirubin, Plasma 0.5 0.2 - 1.1 mg/dL 11/11/2024 4:27 AM EDT [facility] eGFRcr 44.8 mL/min/1.7 3m*2 11/11/2024 4:27 AM EDT [facility] Comment:Reported eGFRcr in m L/min/1.73m2 is based the CKD-EPI 2020 equation that does not use a race coefficient. Blood Venous blood specimen / Unknown Venipuncture / Unknown 11/11/2024 3:32 AM EDT 11/11/2024 3:45 AM EDT us Jennifer Capps PAD EXTRACTOR TENDER LAB BLOOD ORDERABLES Sonali l Result [facility] [address] [place] [address] * (ABNORMAL) CBC W/O Differential (11/11/2024 3:32 AM EDT) WBC Count 11.86(H) 3.70 - 10.30 10*3/uL LAB HEMATOLOGY METHOD 11/11/2024 3:53 AM EDT [facility] RBC Count 2.86(L) 3.90 - 5.20 10*6/uL LAB HEMATOLOGY METHOD 11/11/2024 3:53 AM EDT [facility] HGB 7.5(L) 11.2 - 15.7 g/dL LAB HEMATOLOGY METHOD 11/11/2024 3:53 AM EDT [facility] HCT 24.0(L) 34.0 - 45.0 % LAB HEMATOLOGY METHOD 11/11/2024 3:53 AM EDT [facility] Platelet Count 248 155 - 369 10*3/uL LAB HEMATOLOGY METHOD 11/11/2024 3:53 AM EDT [facility] MCV 84 79 - 98 fL LAB HEMATOLOGY METHOD 11/11/2024 3:53 AM EDT [facility] MCH 26.2 26.0 - 32.0 pg LAB HEMATOLOGY METHOD 11/11/2024 3:53 AM EDT [facility] MCHC 31.3 30.7 - 35.5 g/dL LAB HEMATOLOGY METHOD 11/11/2024 3:53 AM EDT [facility] RDW 16.4(H) 11.5 - 14.5 % LAB HEMATOLOGY METHOD 11/11/2024 3:53 AM EDT [facility] MPV 9.7 8.8 - 12.5 fL LAB HEMATOLOGY METHOD 11/11/2024 3:53 AM EDT [facility] nRBC 0.0 <=0.0 per 100 WBCs LAB HEMATOLOGY METHOD 11/11/2024 3:53 AM EDT [facility] Blood Venous blood specimen / Unknown Venipuncture / Unknown 11/11/2024 3:32 AM EDT 11/11/2024 3:45 AM EDT us Jennifer Capps APRN LAB BLOOD ORDERABLES Sonali l Result Performing Organization Address [facility]/ZIP Co de Phone Number [facility] [address] [place] [address] * (ABNORMAL) Magnesium, Plasma (11/11/2024 3:32 AM EDT) Magnesium, Plasma 1.8(L) 1.9 - 2.4 mg/dL 11/11/2024 4:27 AM EDT [facility] Blood Venous blood specimen / Unknown Venipuncture / Unknown 11/11/2024 3:32 AM EDT 11/11/2024 3:45 AM EDT us Jennifer Capps [employer] LAB BLOOD ORDERABLES Sonali l Result [facility] [address] [place] [address] * Phosphorus, Plasma (11/11/2024 3:32 AM EDT) Phosphorus, Plasma 3.0 2.5 - 4.5 mg/dL 11/11/2024 4:27 AM EDT [facility] Blood Venous blood specimen / Unknown Venipuncture / Unknown 11/11/2024 3:32 AM EDT 11/11/2024 3:45 AM EDT us Jennifer Capps [employer] EXTR[employer] LAB BLOOD ORDERABLES Sonali barahona Result [facility] [address] [place] [address] * (ABNORMAL) Comprehensive metabolic panel (11/10/2024 10:30 AM EDT) Glucose, Plasma 96 74 - 99 mg/dL 11/10/2024 11:48 AM EDT [facility] BUN, Plasma 20 7 - 21 mg/dL 11/10/2024 11:48 AM EDT [facility] Creatinine, Plasma 1.53(H) 0.60 - 1.10 mg/dL 11/10/2024 11:48 AM EDT [facility] BUN/Creatinine Ratio 13 11/10/2024 11:48 AM EDT [facility] Sodium, Plasma 138 136 - 145 mmol/L 11/10/2024 11:48 AM EDT [facility] Potassium, Plasma 3.6 3.6 - 4.9 mmol/L 11/10/2024 11:48 AM EDT [facility] Chloride, Plasma 107 97 - 107 mmol/L 11/10/2024 11:48 AM EDT [facility] CO2, Plasma 16(L) 22 - 29 mmol/L 11/10/2024 11:48 AM EDT [facility] Anion Gap 15 6 - 16 mmol/L 11/10/2024 11:48 AM EDT [facility] Total Calcium, Plasma 8.4(L) 8.9 - 10.2 mg/dL 11/10/2024 11:48 AM EDT [facility] Total Protein 6.0(L) 6.3 - 7.9 g/dL 11/10/2024 11:48 AM EDT [facility] Albumin, Plasma 2.5(L) 3.5 - 5.2 g/dL 11/10/2024 11:48 AM EDT [facility] AST, Plasma 57(H) 10 - 35 U/L 11/10/2024 11:48 AM EDT [facility] Comment:Hemolyzed, result ma y be falsely increased. ALT, Plasma 23 10 - 35 U/L 11/10/2024 11:48 AM EDT [facility] Alkaline Phosphatase, Plasma 224(H) 35 - 104 U/L 11/10/2024 11:48 AM EDT [facility] Total Bilirubin, Plasma 0.6 0.2 - 1.1 mg/dL 11/10/2024 11:48 AM EDT [facility] eGFRcr 42.3 mL/min/1.7 3m*2 11/10/2024 11:48 AM EDT [facility] Comment:Reported eGFRcr in m L/min/1.73m2 is based the CKD-EPI 2020 equation that does not use a race coefficient. Blood Venous blood specimen / Unknown Venipuncture / Unknown 11/10/2024 10:30 AM EDT 11/10/2024 10:34 AM EDT Morelia Galvez MD LAB BLOOD ORDERABLES Final Result [facility] [address] [place] [address] * (ABNORMAL) Basic Metabolic Panel, Plasma (11/10/2024 5:49 AM EDT) Glucose, Plasma 105(H) 74 - 99 mg/dL 11/10/2024 6:36 AM EDT [facility] BUN, Plasma 20 7 - 21 mg/dL 11/10/2024 6:36 AM EDT [facility] Creatinine, Plasma 1.76(H) 0.60 - 1.10 mg/dL 11/10/2024 6:36 AM EDT [facility] BUN/Creatinine Ratio 11 11/10/2024 6:36 AM EDT [facility] Sodium, Plasma 138 136 - 145 mmol/L 11/10/2024 6:36 AM EDT [facility] Potassium, Plasma 3.3(L) 3.6 - 4.9 mmol/L 11/10/2024 6:36 AM EDT [facility] Chloride, Plasma 107 97 - 107 mmol/L 11/10/2024 6:36 AM EDT [facility] CO2, Plasma 19(L) 22 - 29 mmol/L 11/10/2024 6:36 AM EDT [facility] Anion Gap 12 6 - 16 mmol/L 11/10/2024 6:36 AM EDT [facility] Total Calcium, Plasma 8.0(L) 8.9 - 10.2 mg/dL 11/10/2024 6:36 AM EDT [facility] eGFRcr 35.8 mL/min/1.7 3m*2 11/10/2024 6:36 AM EDT [facility] Comment:Reported eGFRcr in m L/min/1.73m2 is based the CKD-EPI 2020 equation that does not use a race coefficient. Blood Venous blood specimen / Unknown Venipuncture / Unknown 11/10/2024 5:49 AM EDT 11/10/2024 6:07 AM EDT Morelia Galvez MD LAB BLOOD ORDERABLES Final Result [facility] [address] [place] [address] * (ABNORMAL) CBC and Differential (11/10/2024 5:49 AM EDT) WBC Count 12.70(H) 3.70 - 10.30 10*3/uL LAB HEMATOLOGY METHOD 11/10/2024 6:14 AM EDT [facility] RBC Count 2.83(L) 3.90 - 5.20 10*6/uL LAB HEMATOLOGY METHOD 11/10/2024 6:14 AM EDT [facility] HGB 7.5(L) 11.2 - 15.7 g/dL LAB HEMATOLOGY METHOD 11/10/2024 6:14 AM EDT [facility] HCT 23.4(L) 34.0 - 45.0 % LAB HEMATOLOGY METHOD 11/10/2024 6:14 AM EDT [facility] Platelet Count 260 155 - 369 10*3/uL LAB HEMATOLOGY METHOD 11/10/2024 6:14 AM EDT [facility] MCV 83 79 - 98 fL LAB HEMATOLOGY METHOD 11/10/2024 6:14 AM EDT [facility] MCH 26.5 26.0 - 32.0 pg LAB HEMATOLOGY METHOD 11/10/2024 6:14 AM EDT [facility] MCHC 32.1 30.7 - 35.5 g/dL LAB HEMATOLOGY METHOD 11/10/2024 6:14 AM EDT [facility] RDW 16.3(H) 11.5 - 14.5 % LAB HEMATOLOGY METHOD 11/10/2024 6:14 AM EDT [facility] MPV 9.6 8.8 - 12.5 fL LAB HEMATOLOGY METHOD 11/10/2024 6:14 AM EDT [facility] nRBC 0.0 <=0.0 per 100 WBCs LAB HEMATOLOGY METHOD 11/10/2024 6:14 AM EDT [facility] Differential Type Automated LAB HEMATOLOGY METHOD 11/10/2024 6:14 AM EDT [facility] Neutrophils % 78 % LAB HEMATOLOGY METHOD 11/10/2024 6:14 AM EDT [facility] Lymphocytes % 12 % LAB HEMATOLOGY METHOD 11/10/2024 6:14 AM EDT [facility] Monocytes % 7 % LAB HEMATOLOGY METHOD 11/10/2024 6:14 AM EDT [facility] Eosinophils % 2 % LAB HEMATOLOGY METHOD 11/10/2024 6:14 AM EDT [facility] Basophils % 0 % LAB HEMATOLOGY METHOD 11/10/2024 6:14 AM EDT [facility] Immature Granulocytes % 1 % LAB HEMATOLOGY METHOD 11/10/2024 6:14 AM EDT [facility] Neutrophils Absolute 9.84(H) 1.60 - 6.10 10*3/uL LAB HEMATOLOGY METHOD 11/10/2024 6:14 AM EDT [facility] Lymphocytes Absolute 1.49 1.20 - 3.90 10*3/uL LAB HEMATOLOGY METHOD 11/10/2024 6:14 AM EDT [facility] Monocytes Absolute 0.93(H) 0.30 - 0.90 10*3/uL LAB HEMATOLOGY METHOD 11/10/2024 6:14 AM EDT [facility] Eosinophils Absolute 0.23 0.00 - 0.50 10*3/uL LAB HEMATOLOGY METHOD 11/10/2024 6:14 AM EDT [facility] Basophils Absolute 0.05 0.00 - 0.10 10*3/uL LAB HEMATOLOGY METHOD 11/10/2024 6:14 AM EDT [facility] Immature Granulocytes Absolute 0.16(H) 0.00 - 0.06 10*3/uL LAB HEMATOLOGY METHOD 11/10/2024 6:14 AM EDT [facility] Blood Venous blood specimen / Unknown Venipuncture / Unknown 11/10/2024 5:49 AM EDT 11/10/2024 6:06 AM EDT Narrative [facility] - 11/10/2024 6:14 AM EDT Therapeutic decision making should be based on absolute values, rather than percentages. us Morelia Galvez MD LAB BLOOD ORDERABLES Final Result [facility] [address] [place] [address] * Magnesium, Plasma (11/10/2024 5:49 AM EDT) Magnesium, Plasma 2.1 1.9 - 2.4 mg/dL 11/10/2024 6:36 AM EDT [facility] Blood Venous blood specimen / Unknown Venipuncture / Unknown 11/10/2024 5:49 AM EDT 11/10/2024 6:07 AM EDT us Morelia Galvez MD LAB BLOOD ORDERABLES Final Result [facility] [address] [place] [address] * Phosphorus, Plasma (11/10/2024 5:49 AM EDT) Phosphorus, Plasma 3.1 2.5 - 4.5 mg/dL 11/10/2024 6:36 AM EDT [facility] Blood Venous blood specimen / Unknown Venipuncture / Unknown 11/10/2024 5:49 AM EDT 11/10/2024 6:07 AM EDT us Morelia Galvez MD LAB BLOOD ORDERABLES Final Result [facility] [address] [place] [address] * PERIPHERAL IV (SMARTFORM LINK) (11/09/2024 5:08 PM EDT) Narrative Gerardo Fabian RN - 11/09/2024 5:08 PM EDT Gerardo Fabian RN 11/09/2024 5:09 PM Insert peripheral IV Performed by: Gerardo Fabian RN Authorized by: Morelia Galvez MD Hand hygiene: Hand hygiene performed prior to insertion Inserted using aseptic techniques: Yes Preparation: Skin prepped with chg Orientation: Left Location: Forearm Catheter placed: Peripheral IV Catheter size: 20g/1.88in Line Technique: Ultrasound Guidance Number of attempts: 1 IV flushes: Without difficulty and positive blood return noted Patient tolerance: Patient tolerated the procedure well IV site covered with: Transparent semipermeable dressing us Morelia Galvez MD IV THERAPY ORDERABLES Sonali l Result * CT Abdomen Pelvis w IV Contrast (11/09/2024 8:52 AM EDT) Anatomical Region Laterality Modality Abdomen, Pelvis Computed Tomogra phy Impressions 11/09/2024 10:03 AM EDT Interval increase size of liver lesions and splenic metastatic lesions compared to prior CT from 2023 Redemonstration of borderline retroperitoneal lymph nodes, which are slightly increased in size Small right pleural effusion and adjacent atelectasis. Minimal left basilar atelectasis Cholelithiasis without CT evidence of cholecystitis. CRITICAL RESULT: No. COMMUNICATION: Per this written report. By electronically signing this report, I, the attending physician, attest that I have personally reviewed the images/data for the above examination(s) and agree with the final edited report. Drafted by Tio East MD on 11/09/2024 8:58 AM Final report signed by Jan Alfonso MD on 11/09/2024 10:03 AM Narrative 11/09/2024 10:03 AM EDT CLINICAL INDICATION: RUQ quadrant pain, suspected cholecystitis. Hx of liver mets, last CT in system from June 2023. TECHNIQUE: Multiple axial CT images were obtained from lung bases through pubic symphysis following administration of IV contrast, Omnipaque 300, 100 mL. Reformatted images in the coronal and sagittal planes were generated from the axial data set to facilitate diagnostic accuracy. Total DLP (Dose-Length Product): 1025.73 mGy.cm. Please note: The reported value represents the total of one or more individual components during the CT acquisition on this date and at this time, and as such, the same value may appear in more than one CT report depending on the interpreting/reporting physicians. COMPARISON: CT abdomen pelvis performed January 15, 2019, outside facility CT performed June 16, 2023 FINDINGS: Lower Chest: Right lower lobe airspace opacity with right-sided pleural effusion. Solid Abdominal Organs: Heterogeneous enhancement of the inferior right hemiliver. Focal hepatic observations and segment 4A, 8 and 7 as follow: * 2 large hypodense heterogeneous lesions in the right dome with the largest is intraparenchymal measuring approximately 14.4 x 12.9 x 12.1 cm. It previously measured up to 4.7 x 4.2 cm * Another adjacent intraparenchymal/pericapsular lesion measuring approximately 10.5 x 5.2 x 9.1 cm (series 3, image 74 and series 5, image 175) , previously measured 9.0 x 6.1 x 7.4 cm * There is a more posterior pericapsular/intraparenchymal lesion measuring up to 4.1 cm, currently measures up to 5.2 cm (series 3, image 27) this lesion appears in continuity with the dominant lesion.. * Otherwise no new or left lobe hepatic lesions. Gallbladder is notable for large calculus at the neck without evidence of pericholecystic fluid or gallbladder wall thickening. Unremarkable pancreas. Splenic pericapsular lesion along the posterior/medial border measuring approximately 7.5 x 5.0 x 7.4 cm, with similar enhancement characteristics as the liver lesions, which was also present in the 2019 exam however has increased in size, currently measures 6.9 x 5.7 x 6.8 cm Adrenal glands are unremarkable bilaterally. Bilateral low-density lesions in the kidneys with a left upper pole lesion measuring approximately 1.7 cm, minimally increased compared to the prior study (series 2 image 33), previously 1.4 cm. Right lower pole low-density renal lesion measuring approximately 2.3 cm (series 2 image 56), previously 2.0 cm GI Tract/Mesentery/Peritoneum: The large and small bowel appear normal in caliber. No evidence of inflammatory change. No suspicious peritoneal/mesenteric findings. Pelvic Viscera: No suspicious pelvic mass lesions. Surgically absent uterus. Lymph Nodes/Vasculature: Borderline-enlarged left para-aortic lymph nodes, with a 1.0 cm lymph node (series 2 image 43), previously measured 6 mm with additional conspicuous appearing nonenlarged retroperitoneal lymph nodes. Free Fluid: Small volume pelvic free fluid. Musculoskeletal and Body Wall: No aggressive or suspicious findings. Procedure Note Jan Alfonso MD - 11/09/2024 CLINICAL INDICATION: RUQ quadrant pain, suspected cholecystitis. Hx of liver mets, last CT insystem from June 2023. TECHNIQUE: Multiple axial CT images were obtained from lung bases through pubicsymphysis following administration of IV contrast, Omnipaque 300, 100 mL.Reformatted images in the coronal and sagittal planes were generated fromthe axial data set to facilitate diagnostic accuracy. Total DLP (Dose-Length Product): 1025.73 mGy.cm. Please note: The reportedvalue represents the total of one or more individual components during theCT acquisition on this date and at this time, and as such, the same valuemay appear in more than one CT report depending on theinterpreting/reporting physicians. COMPARISON: CT abdomen pelvis performed January 15, 2019, outside facility CTperformed June 16, 2023 FINDINGS: Lower Chest: Right lower lobe airspace opacity with right-sided pleuraleffusion. Solid Abdominal Organs: Heterogeneous enhancement of the inferior right hemiliver. Focal hepaticobservations and segment 4A, 8 and 7 as follow: *2 large hypodense heterogeneous lesions in the right dome with thelargest is intraparenchymal measuring approximately 14.4 x 12.9 x 12.1 cm.It previously measured up to 4.7 x 4.2 cm *Another adjacent intraparenchymal/pericapsular lesion measuringapproximately 10.5 x 5.2 x 9.1 cm (series 3, image 74 and series 5, [id number]) , previously measured 9.0 x 6.1 x 7.4 cm *There is a more posterior pericapsular/intraparenchymal lesion measuringup to 4.1 cm, currently measures up to 5.2 cm (series 3, image 27) thislesion appears in continuity with the dominant lesion.. *Otherwise no new or left lobe hepatic lesions. Gallbladder is notable for large calculus at the neck without evidence ofpericholecystic fluid or gallbladder wall thickening. Unremarkablepancreas. Splenic pericapsular lesion along the posterior/medial border measuringapproximately 7.5 x 5.0 x 7.4 cm, with similar enhancement characteristicsas the liver lesions, which was also present in the 2019 exam however hasincreased in size, currently measures 6.9 x 5.7 x 6.8 cm Adrenal glands are unremarkable bilaterally. Bilateral low-density lesionsin the kidneys with a left upper pole lesion measuring approximately 1.7cm, minimally increased compared to the prior study (series 2 image 33),previously 1.4 cm. Right lower pole low-density renal lesion measuringapproximately 2.3 cm (series 2 image 56), previously 2.0 cm GI Tract/Mesentery/Peritoneum: The large and small bowel appear normal incaliber. No evidence of inflammatory change. No suspiciousperitoneal/mesenteric findings. Pelvic Viscera: No suspicious pelvic mass lesions. Surgically absentuterus. Lymph Nodes/Vasculature: Borderline-enlarged left para-aortic lymph nodes,with a 1.0 cm lymph node (series 2 image 43), previously measured 6 mmwith additional conspicuous appearing nonenlarged retroperitoneal lymphnodes. Free Fluid: Small volume pelvic free fluid. Musculoskeletal and Body Wall: No aggressive or suspicious findings. IMPRESSION: Interval increase size of liver lesions and splenic metastatic lesionscompared to prior CT from 2023 Redemonstration of borderline retroperitoneal lymph nodes, which areslightly increased in size Small right pleural effusion and adjacent atelectasis. Minimal leftbasilar atelectasis Cholelithiasis without CT evidence of cholecystitis. CRITICAL RESULT: No. COMMUNICATION: Per this written report. By electronically signing this report, I, the attending physician, attestthat I have personally reviewed the images/data for the aboveexamination(s) and agree with the final edited report. Drafted by Tio East MD on 11/09/2024 8:58 AM Final report signed by Jan Alfonso MD on 11/09/2024 10:03 AM Morelia Galvez MD IMG CT PROCEDURES Final Re sult * (ABNORMAL) POCT glucose meter (11/09/2024 7:12 AM EDT) POCT Glucose 104(H) 74 - 99 mg/dL 11/09/2024 7:13 AM EDT [facility] Comment:Accuracy of a glucos e result obtained from a capillary whole blood specimen relies upon adequate, non-compromised capillary blood flow. If the capillary glucose result is not consistent with the patient's clinical signs and symptoms, glucose testing should be repeated with either an arterial or venous sample on the glucometer or sent to the main labortory for testing. Comment 11/09/2024 7:13 AM EDT [facility] Sales Account Coordinator ID Justine Singh 11/09/2024 7:13 AM EDT [facility] Device ID [id number] 11/09/2024 7:13 AM EDT [facility] Specimen Type POC Capillary 11/09/2024 7:13 AM EDT [facility] Blood Capillary blood specimen / Unknown 11/09/2024 7:12 AM EDT 11/09/2024 7:13 AM EDT Morelia Galvez MD LAB POINT OF CARE TEST DOCKED DEVICE UNSOLICITED RESULTS Final Result Performing Organization Address [facility]/ZIP Co de Phone Number [facility] [address] [place] [address] * (ABNORMAL) Magnesium (11/09/2024 2:04 AM EDT) [facility] Magnesium, Plasma 1.7(L) 1.9 - 2.4 mg/dL 11/09/2024 3:13 AM EDT [facility] Blood Venous blood specimen / Unknown Venipuncture / Unknown 11/09/2024 2:04 AM EDT 11/09/2024 2:44 AM EDT us Rui Leonard DO LAB BLOOD ORDERABLES Final Res ult [facility] [address] [place] [address] * Phosphorus (11/09/2024 2:04 AM EDT) Phosphorus, Plasma 3.9 2.5 - 4.5 mg/dL 11/09/2024 3:13 AM EDT [facility] Blood Venous blood specimen / Unknown Venipuncture / Unknown 11/09/2024 2:04 AM EDT 11/09/2024 2:44 AM EDT us Rui Leonard DO LAB BLOOD ORDERABLES Final Res ult [facility] [address] [place] [address] * (ABNORMAL) Basic Metabolic Panel (11/09/2024 2:04 AM EDT) Pathologist [facility] Glucose, Plasma 96 74 - 99 mg/dL 11/09/2024 3:13 AM EDT [facility] BUN, Plasma 21 7 - 21 mg/dL 11/09/2024 3:13 AM EDT [facility] Creatinine, Plasma 1.81(H) 0.60 - 1.10 mg/dL 11/09/2024 3:13 AM EDT [facility] BUN/Creatinine Ratio 12 11/09/2024 3:13 AM EDT [facility] Sodium, Plasma 139 136 - 145 mmol/L 11/09/2024 3:13 AM EDT [facility] Potassium, Plasma 3.0(L) 3.6 - 4.9 mmol/L 11/09/2024 3:13 AM EDT [facility] Chloride, Plasma 104 97 - 107 mmol/L 11/09/2024 3:13 AM EDT [facility] CO2, Plasma 19(L) 22 - 29 mmol/L 11/09/2024 3:13 AM EDT [facility] Anion Gap 16 6 - 16 mmol/L 11/09/2024 3:13 AM EDT [facility] Total Calcium, Plasma 8.3(L) 8.9 - 10.2 mg/dL 11/09/2024 3:13 AM EDT [facility] eGFRcr 34.6 mL/min/1.7 3m*2 11/09/2024 3:13 AM EDT [facility] Comment:Reported eGFRcr in m L/min/1.73m2 is based the CKD-EPI 2020 equation that does not use a race coefficient. Blood Venous blood specimen / Unknown Venipuncture / Unknown 11/09/2024 2:04 AM EDT 11/09/2024 2:44 AM EDT us Rui Leonard DO LAB BLOOD ORDERABLES Final Res ult [facility] [address] [place] [address] * (ABNORMAL) CBC (11/09/2024 2:04 AM EDT) WBC Count 12.51(H) 3.70 - 10.30 10*3/uL LAB HEMATOLOGY METHOD 11/09/2024 2:53 AM EDT [facility] RBC Count 2.74(L) 3.90 - 5.20 10*6/uL LAB HEMATOLOGY METHOD 11/09/2024 2:53 AM EDT [facility] HGB 7.4(L) 11.2 - 15.7 g/dL LAB HEMATOLOGY METHOD 11/09/2024 2:53 AM EDT [facility] HCT 22.8(L) 34.0 - 45.0 % LAB HEMATOLOGY METHOD 11/09/2024 2:53 AM EDT [facility] Platelet Count 261 155 - 369 10*3/uL LAB HEMATOLOGY METHOD 11/09/2024 2:53 AM EDT [facility] MCV 83 79 - 98 fL LAB HEMATOLOGY METHOD 11/09/2024 2:53 AM EDT [facility] MCH 27.0 26.0 - 32.0 pg LAB HEMATOLOGY METHOD 11/09/2024 2:53 AM EDT [facility] MCHC 32.5 30.7 - 35.5 g/dL LAB HEMATOLOGY METHOD 11/09/2024 2:53 AM EDT [facility] RDW 16.2(H) 11.5 - 14.5 % LAB HEMATOLOGY METHOD 11/09/2024 2:53 AM EDT [facility] MPV 9.8 8.8 - 12.5 fL LAB HEMATOLOGY METHOD 11/09/2024 2:53 AM EDT [facility] nRBC 0.0 <=0.0 per 100 WBCs LAB HEMATOLOGY METHOD 11/09/2024 2:53 AM EDT [facility] Blood Venous blood specimen / Unknown Venipuncture / Unknown 11/09/2024 2:04 AM EDT 11/09/2024 2:44 AM EDT us Rui Leonard DO LAB BLOOD ORDERABLES Final Res ult Performing Organization Address [facility] de Phone Number [facility] [address] [place] [address] * (ABNORMAL) Troponin T, High Sensitivity, 2 Hour, Plasma (11/08/2024 3:17 PM EDT) Troponin T, High Sensitivity, 2 Hour 17(H) <14 ng/L 11/08/2024 3:51 PM EDT [facility] Troponin Delta 3 <10 ng/L 11/08/2024 3:51 PM EDT [facility] Troponin Delta Interpretation Not Significant 11/08/2024 3:51 PM EDT [facility] Comment:Not Significant. No acute change in troponin observed between the baseline and 2 hour samples. Blood Venous blood specimen / Unknown Venipuncture / Unknown 11/08/2024 3:17 PM EDT 11/08/2024 3:24 PM EDT us Long Rios MD LAB BLOOD ORDERABLES Final R esult Performing Organization Address [facility] Co de Phone Number [facility] [address] [place] [address] * Heparin level (11/08/2024 1:57 PM EDT) Anti Xa Level Unfractionated Heparin <0.11 <1.00 IU/mL LAB COAGULATION METHOD 11/08/2024 2:26 PM EDT [facility] Blood Venous blood specimen / Unknown Venipuncture / Unknown 11/08/2024 1:57 PM EDT 11/08/2024 2:07 PM EDT Narrative [facility] - 11/08/2024 2:26 PM EDT Therapeutic Range: UFH Full Dose and ACS/TN protocols*: 0.30 - 0.70 IU/mL UFH Low Dose protocol*: 0.25 - 0.50 IU/mL UFH prophylaxis: Not established us Long Rios MD LAB BLOOD ORDERABLES Final R esult [facility] [address] [place] [address] * US Abdomen Focused Region GB, Bile Ducts (11/08/2024 1:46 PM EDT) Anatomical Region Laterality Modality Abdomen Ultrasound Impressions 11/08/2024 3:00 PM EDT Gallstones without supporting evidence of cholecystitis. CRITICAL RESULT: No. COMMUNICATION: Per this written report. Preliminary report signed by Dariusz Boyd MD on 11/08/2024 2:21 PM By electronically signing this report, I, the attending physician, attest that I have personally reviewed the images/data for the above examination(s) and agree with the final edited report. Drafted by Dariusz Boyd MD on 11/08/2024 2:17 PM Final report signed by Nash Chung MD on 11/08/2024 3:00 PM Narrative 11/08/2024 3:00 PM EDT CLINICAL INDICATION: concern for cholelithiasis TECHNIQUE: Multiplanar static and cine de la garza scale ultrasound images of the gallbladder were obtained, accompanied by selective color Doppler ultrasound images. COMPARISON: None. FINDINGS: Grayscale: Gallbladder: Gallstones noted within the otherwise unremarkable gallbladder. Common Duct: Nondilated measuring 4 mm. Procedure Note Nash Chung MD - 11/08/2024 CLINICAL INDICATION: concern for cholelithiasis TECHNIQUE: Multiplanar static and cine de la garza scale ultrasound images of thegallbladder were obtained, accompanied by selective color Dopplerultrasound images. COMPARISON: None. FINDINGS: Grayscale: Gallbladder: Gallstones noted within the otherwise unremarkablegallbladder. Common Duct: Nondilated measuring 4 mm. IMPRESSION: Gallstones without supporting evidence of cholecystitis. CRITICAL RESULT: No. COMMUNICATION: Per this written report. Preliminary report signed by Dariusz Boyd MD on 11/08/2024 2:21 PM By electronically signing this report, I, the attending physician, attestthat I have personally reviewed the images/data for the aboveexamination(s) and agree with the final edited report. Drafted by Dariusz Boyd MD on 11/08/2024 2:17 PM Final report signed by Nash Chung MD on 11/08/2024 3:00 PM us Long Rios MD IMG US PROCEDURES Final Resu lt * ED HIV 1/2 Antibody/Antigen Screen w/Reflex to HIV 1/2 Differentiation (11/08/2024 1:12 PM EDT) [facility] HIV 1 & 2 Antibody/Antigen Screen Non Reactive Non Reactive 11/08/2024 2:06 PM EDT [facility] Comment:Screening for HIV 1 & 2 antibodies, and P24 antigen is NONREACTIVE. No confirmatory testing is required. Blood Venous blood specimen / Unknown Venipuncture / Unknown 11/08/2024 1:12 PM EDT 11/08/2024 1:24 PM EDT us Long Rios MD LAB BLOOD ORDERABLES Final R esult [facility] [address] [place] [address] * (ABNORMAL) PT-INR (11/08/2024 1:12 PM EDT) [facility] Prothrombin Time 16.3(H) 12.0 - 14.3 sec LAB COAGULATION METHOD 11/08/2024 1:48 PM EDT [facility] INR 1.3(H) 0.9 - 1.1 LAB COAGULATION METHOD 11/08/2024 1:48 PM EDT [facility] Blood Venous blood specimen / Unknown Venipuncture / Unknown 11/08/2024 1:12 PM EDT 11/08/2024 1:25 PM EDT Narrative [facility] - 11/08/2024 1:48 PM EDT OPTIMAL INR RANGES FOR PATIENT ON ORAL ANTICOAGULANT THERAPY Prevention of venous thromboembolism INR 2.0 to 3.0 In patients with heart disease: Atrial fibrillation INR 2.0 to 3.0 Valvular heart disease INR 2.0 to 3.0 Tissue heart valves INR 2.0 to 3.0 Mechanical prosthetic valves INR 2.5 to 3.5 Prevention of recurrent TN INR 2.5 to 3.5 us Long Rios MD LAB BLOOD ORDERABLES Final R esult [facility] [address] [place] [address] * (ABNORMAL) CBC w/diff (11/08/2024 1:12 PM EDT) WBC Count 13.33(H) 3.70 - 10.30 10*3/uL LAB HEMATOLOGY METHOD 11/08/2024 1:33 PM EDT [facility] RBC Count 3.41(L) 3.90 - 5.20 10*6/uL LAB HEMATOLOGY METHOD 11/08/2024 1:33 PM EDT [facility] HGB 9.1(L) 11.2 - 15.7 g/dL LAB HEMATOLOGY METHOD 11/08/2024 1:33 PM EDT [facility] HCT 27.9(L) 34.0 - 45.0 % LAB HEMATOLOGY METHOD 11/08/2024 1:33 PM EDT [facility] Platelet Count 301 155 - 369 10*3/uL LAB HEMATOLOGY METHOD 11/08/2024 1:33 PM EDT [facility] MCV 82 79 - 98 fL LAB HEMATOLOGY METHOD 11/08/2024 1:33 PM EDT [facility] MCH 26.7 26.0 - 32.0 pg LAB HEMATOLOGY METHOD 11/08/2024 1:33 PM EDT [facility] MCHC 32.6 30.7 - 35.5 g/dL LAB HEMATOLOGY METHOD 11/08/2024 1:33 PM EDT [facility] RDW 15.9(H) 11.5 - 14.5 % LAB HEMATOLOGY METHOD 11/08/2024 1:33 PM EDT [facility] MPV 9.7 8.8 - 12.5 fL LAB HEMATOLOGY METHOD 11/08/2024 1:33 PM EDT [facility] nRBC 0.0 <=0.0 per 100 WBCs LAB HEMATOLOGY METHOD 11/08/2024 1:33 PM EDT [facility] Differential Type Automated LAB HEMATOLOGY METHOD 11/08/2024 1:33 PM EDT [facility] Neutrophils % 84 % LAB HEMATOLOGY METHOD 11/08/2024 1:33 PM EDT [facility] Lymphocytes % 7 % LAB HEMATOLOGY METHOD 11/08/2024 1:33 PM EDT [facility] Monocytes % 7 % LAB HEMATOLOGY METHOD 11/08/2024 1:33 PM EDT [facility] Eosinophils % 1 % LAB HEMATOLOGY METHOD 11/08/2024 1:33 PM EDT [facility] Basophils % 0 % LAB HEMATOLOGY METHOD 11/08/2024 1:33 PM EDT [facility] Immature Granulocytes % 1 % LAB HEMATOLOGY METHOD 11/08/2024 1:33 PM EDT [facility] Neutrophils Absolute 11.14(H) 1.60 - 6.10 10*3/uL LAB HEMATOLOGY METHOD 11/08/2024 1:33 PM EDT [facility] Lymphocytes Absolute 0.97(L) 1.20 - 3.90 10*3/uL LAB HEMATOLOGY METHOD 11/08/2024 1:33 PM EDT [facility] Monocytes Absolute 0.92(H) 0.30 - 0.90 10*3/uL LAB HEMATOLOGY METHOD 11/08/2024 1:33 PM EDT [facility] Eosinophils Absolute 0.11 0.00 - 0.50 10*3/uL LAB HEMATOLOGY METHOD 11/08/2024 1:33 PM EDT [facility] Basophils Absolute 0.05 0.00 - 0.10 10*3/uL LAB HEMATOLOGY METHOD 11/08/2024 1:33 PM EDT [facility] Immature Granulocytes Absolute 0.14(H) 0.00 - 0.06 10*3/uL LAB HEMATOLOGY METHOD 11/08/2024 1:33 PM EDT [facility] Blood Venous blood specimen / Unknown Venipuncture / Unknown 11/08/2024 1:12 PM EDT 11/08/2024 1:[facility]/08/[facility] 1:33 PM EDT Therapeutic decision making should be based on absolute values, rather than percentages. us Long Rios MD LAB BLOOD ORDERABLES Final R esult Performing Organization Address [facility]/ZIP Co de Phone Number [facility] [address] [place] [address] * (ABNORMAL) BNP (11/08/2024 1:12 PM EDT) N-Terminal, PROBNP, Plasma 523(H) 0 - 449 pg/mL 11/08/2024 1:55 PM EDT [facility] Blood Venous blood specimen / Unknown Venipuncture / Unknown 11/08/2024 1:12 PM EDT 11/08/2024 1:25 PM EDT us Long Rios MD LAB BLOOD ORDERABLES Final R esult Performing Organization Address [facility]/ZIP Co de Phone Number [facility] [address] [place] [address] * (ABNORMAL) Troponin now and 120 min (11/08/2024 1:12 PM EDT) Troponin T, High Sensitivity, 0 Hour 14(H) <14 ng/L 11/08/2024 1:55 PM EDT [facility] Blood Venous blood specimen / Unknown Venipuncture / Unknown 11/08/2024 1:12 PM EDT 11/08/2024 1:25 PM EDT us Long Rios MD LAB BLOOD ORDERABLES Final R esult Performing Organization Address [facility]/ZIP Co de Phone Number [facility] [address] [place] [address] * (ABNORMAL) CMP (11/08/2024 1:12 PM EDT) Glucose, Plasma 106(H) 74 - 99 mg/dL 11/08/2024 1:55 PM EDT [facility] BUN, Plasma 20 7 - 21 mg/dL 11/08/2024 1:55 PM EDT [facility] Creatinine, Plasma 1.64(H) 0.60 - 1.10 mg/dL 11/08/2024 1:55 PM EDT [facility] BUN/Creatinine Ratio 12 11/08/2024 1:55 PM EDT [facility] Sodium, Plasma 140 136 - 145 mmol/L 11/08/2024 1:55 PM EDT [facility] Potassium, Plasma 3.2(L) 3.6 - 4.9 mmol/L 11/08/2024 1:55 PM EDT [facility] Comment:Hemolyzed, result ma y be falsely increased. Chloride, Plasma 108(H) 97 - 107 mmol/L 11/08/2024 1:55 PM EDT [facility] CO2, Plasma 18(L) 22 - 29 mmol/L 11/08/2024 1:55 PM EDT [facility] Anion Gap 14 6 - 16 mmol/L 11/08/2024 1:55 PM EDT [facility] Total Calcium, Plasma 7.6(L) 8.9 - 10.2 mg/dL 11/08/2024 1:55 PM EDT [facility] Total Protein 6.2(L) 6.3 - 7.9 g/dL 11/08/2024 1:55 PM EDT [facility] Albumin, Plasma 2.6(L) 3.5 - 5.2 g/dL 11/08/2024 1:55 PM EDT [facility] AST, Plasma 62(H) 10 - 35 U/L 11/08/2024 1:55 PM EDT [facility] Comment:Hemolyzed, result ma y be falsely increased. ALT, Plasma 22 10 - 35 U/L 11/08/2024 1:55 PM EDT [facility] Alkaline Phosphatase, Plasma 231(H) 35 - 104 U/L 11/08/2024 1:55 PM EDT [facility] Total Bilirubin, Plasma 1.0 0.2 - 1.1 mg/dL 11/08/2024 1:55 PM EDT [facility] eGFRcr 38.9 mL/min/1.7 3m*2 11/08/2024 1:55 PM EDT [facility] Comment:Reported eGFRcr in m L/min/1.73m2 is based the CKD-EPI 2020 equation that does not use a race coefficient. Blood Venous blood specimen / Unknown Venipuncture / Unknown 11/08/2024 1:12 PM EDT 11/08/2024 1:25 PM EDT us Long Rios MD LAB BLOOD ORDERABLES Final R esult Performing Organization Address City/[facility]/ZIP Co de Phone Number [facility] [address] [place] [address] * EKG now - STAT (adult) (11/08/2024 11:25 AM EDT) EKG DIAGNOSIS CLASS Borderline Abnormal MUSE ECG Ventricular Rate 94 BPM MUSE ECG Atrial Rate 94 BPM MUSE ECG TX Interval 128 ms MUSE ECG QRSD Interval 100 ms MUSE ECG QT Interval 364 ms MUSE ECG QTC Interval 455 ms MUSE ECG P Lebeau 65 degrees MUSE ECG R Lebeau 11 degrees MUSE ECG T Wave Lebeau 8 degrees MUSE ECG Diagnosis Normal sinus rhythm MUSE ECG Diagnosis RSR' V1, is likely a normal variant MUSE ECG Diagnosis Borderline ECG MUSE ECG Diagnosis MUSE ECG Diagnosis Confirmed by Yovani Liu (1971) on 11/09/2024 9:56:32 AM MUSE ECG 11/08/2024 11:2 5 AM EDT 11/09/2024 9:56 AM EDT us Long Rios MD ECG ORDERABLES Final Result Performing Organization Address City/[facility] Co de Phone Number MUSE ECG documented in this encounter Visit Diagnoses Diagnosis Calculus of gallbladder without cholecystitis without obstruction- Primary Calculus of gallbladder without cholecystitis without obstruction Metastasis to liver Secondary malignant neoplasm of liver SBO (small bowel obstruction) Unspecified intestinal obstruction H/O cholelithiasis Other cholelithiasis without obstruction Endometrial cancer Malignant neoplasm of corpus uteri, except isthmus Metastasis to liver 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 Obesity (BMI 30-39.9) documented in this encounter Admitting Diagnoses Diagnosis SBO (small bowel obstruction) Unspecified intestinal obstruction H/O cholelithiasis Other cholelithiasis without obstruction documented in this encounter Administered Medications Inactive Administered Medications - up to 3 most recent administrations Medication Order MAR Action Action Date Dose Rate Site acetaminophen (Tylenol) tablet 1,000 mg 1,000 mg, Oral, Every 6 hours PRN, Starting on Sun11/08/24 at 2330, Until Sun11/10/24 at 1115, Routine, moderate pain, fever Given 11/09/2024 12:26 AM EDT 1,000 mg acetaminophen (Tylenol) tablet 500 mg 500 mg, Oral, Every 6 hours scheduled, First dose (after last modification) on Sun11/10/24 at 1215, Until Discontinued, Routine Given 11/14/2024 5:40 PM EDT 500 mg Given 11/14/2024 12:00 PM EDT 500 mg Given 11/14/2024 12:50 AM EDT 500 mg benzocaine-menthol (Chloraseptic) 6-10 MG lozenge 1 lozenge 1 lozenge, Mouth/Throat, Every 4 hours PRN, Starting on Sun11/11/24 at 0007, Until Sun11/14/24 at 2250, Routine, sore throat Given 11/11/2024 12:44 AM EDT 1 lozenge calcium carbonate (Tums) chewable tablet 500 mg 500 mg, Oral, Daily, First dose on Sun11/10/24 at 0900, Until Discontinued, Routine Given 11/11/2024 8:26 AM EDT 500 mg Given 11/10/2024 10:05 AM EDT 500 mg cefOXitin (Mefoxin) 2 g in sodium chloride 0.9% 100 mL IVPB (vial adapter required) 2 g, Intravenous, Every 6 hours, First dose on Sun11/08/24 at 1900, Until Discontinued, Routine New Bag 11/10/2024 6:15 AM EDT 2 g 220 mL/hr New Bag 11/09/2024 11:04 PM EDT 2 g 220 mL/hr Restarted 11/09/2024 5:30 PM EDT 220 mL/hr enoxaparin (Lovenox) syringe 40 mg 40 mg, Subcutaneous, Daily, First dose on Sun11/10/24 at 1200, Until Discontinued, Routine, On hold since Sun11/12/2024 at 0627 until manually unheld Given 11/10/2024 11:36 AM EDT 40 mg R ight Lower Abdomen enoxaparin (Lovenox) syringe 40 mg 40 mg, Subcutaneous, Daily, First dose (after last modification) on Sun11/12/24 at 1230, Until Discontinued, Routine, On hold since Laura 11/13/2024 at 2359 until manually unheld Given 11/13/2024 8:43 AM EDT 40 mg Le ft Lower Abdomen Given 11/12/2024 12:52 PM EDT 40 mg L eft Lower Abdomen guaiFENesin (Mucinex) 12 hr tablet 600 mg 600 mg, Oral, 2 times daily PRN, Starting on Sun11/11/24 at 0007, Until Sun11/14/24 at 2250, Routine, cough Given 11/12/2024 9:33 PM EDT 600 mg Given 11/11/2024 9:51 PM EDT 600 mg Given 11/11/2024 12:44 AM EDT 600 mg iohexol (OMNIPaque) 300 MG/ML injection 100 mL 100 mL, Intravenous, Once in imaging, 1 dose, Starting on 11/09/24 at 0752, Until 11/09/24 at 0852, Routine, Imaging Protocol Orders Given 11/09/2024 8:52 AM EDT 100 mL lactated Ringer's bolus 500 mL 500 mL, Intravenous, Once, 1 dose, On 11/08/24 at 1900, Administer over 2 Hours, Routine New Bag 11/08/2024 7:18 PM EDT 500 mL 250 mL/hr lactated Ringer's infusion 75 mL/hr, Intravenous, Continuous, Starting on 11/08/24 at 1855, Until Sun11/10/24 at 1114, Routine New Bag 11/09/2024 4:11 AM EDT 75 mL/hr 75 mL/hr New Bag 11/08/2024 9:20 PM EDT 75 mL/hr 75 mL/hr lactated Ringer's infusion 125 mL/hr, Intravenous, Continuous, Starting on Sun11/10/24 at 1200, Until Sun11/11/24 at 0901, Routine New Bag 11/10/2024 7:39 PM EDT 125 mL/hr 125 mL/hr New Bag 11/10/2024 11:48 AM EDT 125 mL/hr 125 mL/hr lactated Ringer's infusion 75 mL/hr, Intravenous, Continuous, Starting on Sun11/14/24 at 0000, Until Sun11/14/24 at 2250, Routine New Bag 11/14/2024 12:50 AM EDT 75 mL/hr 75 mL/hr loperamide (Imodium A-D) tablet 2 mg 2 mg, Oral, 4 times daily PRN, Starting on Sun11/11/24 at 2231, Until Sun11/14/24 at 2250, Routine, diarrhea magnesium oxide (Mag-Ox) tablet 400 mg 400 mg, Oral, Once, 1 dose, On Sun11/11/24 at 0530, Routine Given 11/11/2024 6:20 AM EDT 400 mg magnesium sulfate IVPB 2 g 2 g, Intravenous, Once, 1 dose, On Sun11/09/24 at 0530, Routine New Bag 11/09/2024 4:50 AM EDT 2 g 25 mL/hr magnesium sulfate IVPB 2 g 2 g, Intravenous, Once, 1 dose, On Sun11/12/24 at 1745, Routine New Bag 11/12/2024 5:15 PM EDT 2 g 25 mL/hr methocarbamol (Robaxin) tablet 500 mg 500 mg, Oral, 4 times daily, First dose on Sun11/10/24 at 1400, Until Discontinued, Routine Given 11/14/2024 5:40 PM EDT 500 mg Given 11/14/2024 8:44 AM EDT 500 mg Given 11/13/2024 8:19 PM EDT 500 mg metoclopramide (Reglan) injection 5 mg 5 mg, Intravenous, Every 6 hours PRN, Starting on Sun11/09/24 at 1540, Until Sun11/14/24 at 2250, Routine, nausea, vomiting Given 11/11/2024 7:08 AM EDT 5 mg metoclopramide (Reglan) tablet 5 mg 5 mg, Oral, Every 6 hours PRN, Starting on Sun11/09/24 at 1540, Until Sun11/14/24 at 2250, Routine, nausea, vomiting Given 11/09/2024 3:48 PM EDT 5 mg ondansetron (Zofran) 4 MG/5ML solution 4 mg 4 mg, Oral, Every 6 hours PRN, Starting on 11/08/24 at 1852, Until Sun11/14/24 at 2250, Routine, nausea, vomiting ondansetron (Zofran) injection 4 mg 4 mg, Intravenous, Every 6 hours PRN, Starting on Sun11/08/24 at 1852, Until Sun11/14/24 at 2250, Routine, vomiting, nausea Given 11/13/2024 12:52 PM EDT 4 mg Given 11/10/2024 6:22 AM EDT 4 mg Given 11/09/2024 1:13 PM EDT 4 mg ondansetron ODT (Zofran-ODT) disintegrating tablet 4 mg 4 mg, Oral, Every 6 hours PRN, Starting on 11/08/24 at 1852, Until Sun11/14/24 at 2250, Routine, nausea, vomiting Given 11/14/2024 8:44 AM EDT 4 mg Given 11/12/2024 8:38 AM EDT 4 mg Given 11/11/2024 6:41 PM EDT 4 mg potassium chloride CR (Klor-Con) ER tablet 40 mEq 40 mEq, Oral, Every 4 hours, 2 doses, First dose on Sun11/09/24 at 0530, Last dose on Sun11/09/24 at 0930, Routine Given 11/09/2024 9:19 AM EDT 40 mEq Given 11/09/2024 4:48 AM EDT 40 mEq potassium chloride CR (Klor-Con) ER tablet 40 mEq 40 mEq, Oral, Every 4 hours, 2 doses, First dose on Sun11/10/24 at 1200, Last dose on Sun11/10/24 at 1600, Routine Given 11/10/2024 4:42 PM EDT 40 mEq Given 11/10/2024 11:36 AM EDT 40 mEq sodium chloride 0.9 % flush 10 mL 10 mL, Intravenous, Every 12 hours, First dose on 11/08/24 at 1855, Until Discontinued, Routine Given 11/10/2024 4:42 PM EDT 10 mL Given 11/10/2024 6:14 AM EDT 10 mL Given 11/09/2024 5:30 PM EDT 10 mL sodium chloride 0.9 % flush 10 mL 10 mL, Intravenous, Every 12 hours, First dose (after last modification) on Sun11/11/24 at 2100, Until Discontinued, Routine Given 11/14/2024 8:44 AM EDT 10 mL Given 11/13/2024 8:19 PM EDT 10 mL Given 11/13/2024 9:06 AM EDT 10 mL sodium chloride 0.9 % flush 10 mL 10 mL, Intravenous, As needed, Starting on Sun11/11/24 at 1603, Until Sun11/14/24 at 2250, Routine, line care sodium chloride 0.9 % flush 10 mL 10 mL, Intravenous, Every 12 hours, First dose on Sun11/14/24 at 1600, Until Discontinued, Routine, Holding - Preprocedure Given 11/14/2024 5:03 PM EDT 10 mL sodium chloride 0.9 % flush 10 mL 10 mL, Intravenous, As needed, Starting on Sun11/14/24 at 1504, Until Sun11/14/24 at 2250, Routine, Holding - Preprocedure, line care documented in this encounter Active and Recently Administered Medications Times are shown in EDT. Scheduled Medication Order 11/12/2024 11/13/2024 11/14/2024 acetaminophen (Tylenol) tablet 500 mg 500 mg, Oral, Every 6 hours scheduled, First dose (after last modification) on Sun11/10/24 at 1215, Until Discontinued, Routine 0037 (Given - Provider: Jennifer Garcia)0640 (Given - Provider: Jennifer Garcia)1252 (Given - Provider: May Fitzpatrick RN)1716 (Given - Provider: May Fitzpatrick RN) 0031 (Given - Provider: Jennifer Garcia)0514 (Given - Provider: Jennifer Garcia)1252 (Given - Provider: Leyda Greenwood RN)1810 (Given - Provider: Leyda Greenwood RN) 0050 (Given - Provider: Sumi Renae RN)0518 (Not Given - Provider: Sumi Renae RN - Reason: Patient/family refused)1200 (Given - Provider: Clarissa Marie, INOCENCIA)1740 (Given - Provider: Clarissa Marie, INOCENCIA) calcium carbonate (Tums) chewable tablet 500 mg 500 mg, Oral, Daily, First dose on Sun11/10/24 at 0900, Until Discontinued, Routine 0838 (Not Given - Provider: May Fitzpatrick RN - Reason: Patient/family refused) 0843 (Not Given - Provider: Leyda Greenwood RN - Reason: Patient/family refused) 0900 (Canceled Entry - Provider: Clarissa Marie RN - Comment: Going to OR) enoxaparin (Lovenox) syringe 40 mg 40 mg, Subcutaneous, Daily, First dose (after last modification) on Sun11/12/24 at 1230, Until Discontinued, Routine, On hold since Laura 11/13/2024 at 2359 until manually unheld 1252 (Given - Provider: May Fitzpatrick RN) 0843 (Given - Provider: Leyda Greenwood RN)2359 (Held by provider - Provider: Katie Cortes MD - Reason: Upcoming test/procedure) 0900 (Dose Auto Held - Provider: Katie Cortes MD)2250 (Unheld by provider - Provider: Automatic Discharge Provider) magnesium sulfate IVPB 2 g (COMPLETED) 2 g, Intravenous, Once, 1 dose, On Sun11/12/24 at 1745, Routine 1715 (New Bag - Provider: May Fitzpatrick RN)2000 (Stopped - Provider: Jennifer Garcia - Comment: pain ful infusion so day shift ran for 3 hours) methocarbamol (Robaxin) tablet 500 mg 500 mg, Oral, 4 times daily, First dose on Sun11/10/24 at 1400, Until Discontinued, Routine 0838 (Given - Provider: May Fitzpatrick, INOCENCIA)1308 (Given - Provider: May Fitzpatrick, INOCENCIA)1716 (Given - Provider: May Fitzpatrick RN)2132 (Given - Provider: Jennifer Garcia) 0843 (Given - Provider: Leyda Greenwood RN)1426 (Given - Provider: Leyda Greenwood, RN)1810 (Given - Provider: Leyda Greenwood RN)2019 (Given - Provider: Sumi Renae RN) 0844 (Given - Provider: Clarissa Marie, INOCENCIA)1410 (Not Given - Provider: Clarissa Marie, INOCENCIA - Reason: Patient in procedure)1740 (Given - Provider: Clarissa Marie, INOCENCIA)2200 (Canceled Entry - Provider: Automatic Discharge Provider - Comment: Automatically canceled at discontinue of medication order) sodium chloride 0.9 % flush 10 mL(Linked Group 1) 10 mL, Intravenous, Every 12 hours, First dose (after last modification) on Sun11/11/24 at 2100, Until Discontinued, Routine 0838 (Given - Provider: May Fitzpatrick, INOCENCIA)2006 (Given - Provider: Jennifer Garcia) 09 (Given - Provider: Leyda Greenwood RN)2018 (Given - Provider: Sumi Renae RN) 0844 (Given - Provider: Clarissa Marie RN)2100 (Canceled Entry - Provider: Automatic Discharge Provider - Comment: Automatically canceled at discontinue of medication order) sodium chloride 0.9 % flush 10 mL(Linked Group 2) 10 mL, Intravenous, Every 12 hours, First dose on Sun11/14/24 at 1600, Until Discontinued, Routine, Holding - Preprocedure 1703 (Given - Provid er: Clarissa Marie RN) Continuous Medication Order 11/12/2024 11/13/2024 11/14/2024 lactated Ringer's infusion 75 mL/hr, Intravenous, Continuous, Starting on Sun11/14/24 at 0000, Until Sun11/14/24 at 2250, Routine 0050 (New Bag - Prov ider: Sumi Renae RN) PRN Medication Order 11/12/2024 11/13/2024 11/14/2024 benzocaine-menthol (Chloraseptic) 6-10 MG lozenge 1 lozenge 1 lozenge, Mouth/Throat, Every 4 hours PRN, Starting on Sun11/11/24 at 0007, Until Sun11/14/24 at 2250, Routine, sore throat guaiFENesin (Mucinex) 12 hr tablet 600 mg 600 mg, Oral, 2 times daily PRN, Starting on Sun11/11/24 at 0007, Until Sun11/14/24 at 2250, Routine, cough 2133 (Given - Provider: Jennifer Garcia) loperamide (Imodium A-D) tablet 2 mg 2 mg, Oral, 4 times daily PRN, Starting on Sun11/11/24 at 2231, Until Sun11/14/24 at 2250, Routine, diarrhea 0037 (Not Given - Provider: Jennifer Garcia - Reason: Patient/family refused - Comment: patient declined medication) metoclopramide (Reglan) injection 5 mg(Linked Group 3) 5 mg, Intravenous, Every 6 hours PRN, Starting on 11/09/24 at 1540, Until Sun11/14/24 at 2250, Routine, nausea, vomiting metoclopramide (Reglan) tablet 5 mg(Linked Group 3) 5 mg, Oral, Every 6 hours PRN, Starting on 11/09/24 at 1540, Until Sun11/14/24 at 2250, Routine, nausea, vomiting ondansetron (Zofran) 4 MG/5ML solution 4 mg(Linked Group 4) 4 mg, Oral, Every 6 hours PRN, Starting on 11/08/24 at 1852, Until Sun11/14/24 at 2250, Routine, nausea, vomiting 0838 (See Alternative - Provider: May Fitzpatrick RN) 1252 (See Alternative - Provider: Leyda Greenwood RN) 0844 (See Alternative - Provider: Clarissa Marie RN) ondansetron (Zofran) injection 4 mg(Linked Group 4) 4 mg, Intravenous, Every 6 hours PRN, Starting on 11/08/24 at 1852, Until Sun11/14/24 at 2250, Routine, vomiting, nausea 0838 (See Alternative - Provider: May Fitzpatrick RN) 1252 (Given - Provider: Leyda Greenwood RN) 0844 (See Alternative - Provider: Clarissa Marie, INOCENCIA) ondansetron ODT (Zofran-ODT) disintegrating tablet 4 mg(Linked Group 4) 4 mg, Oral, Every 6 hours PRN, Starting on 11/08/24 at 1852, Until Sun11/14/24 at 2250, Routine, nausea, vomiting 0838 (Given - Provider: May Fitzpatrick RN) 1252 (See Alternative - Provider: Leyda Greenwood RN) 0844 (Given - Provider: Clarissa Marie RN) sodium chloride 0.9 % flush 10 mL(Linked Group 1) 10 mL, Intravenous, As needed, Starting on Tu11/11/24 at 1603, Until Sun11/14/24 at 2250, Routine, line care sodium chloride 0.9 % flush 10 mL(Linked Group 2) 10 mL, Intravenous, As needed, Starting on Sun11/14/24 at 1504, Until Sun11/14/24 at 2250, Routine, Holding - Preprocedure, line care Linked Groups Order Group 1: sodium chloride 0.9 % flush 10 mLJump to med 10 mL, Intravenous, Every 12 hours, First dose (after last modification) on Sun11/11/24 at 2100, Until Discontinued, Routine And sodium chloride 0.9 % flush 10 mLJump to med 10 mL, Intravenous, As needed, Starting on Sun11/11/24 at 1603, Until Sun11/14/24 at 2250, Routine, line care Group 2: Insert peripheral IV (CANCELED) Once, On Sun11/14/24 at 1505, For 1 occurrence, Holding - Preprocedure And Saline lock IV (CANCELED) Once, On Sun11/14/24 at 1505, For 1 occurrence, Holding - Preprocedure And sodium chloride 0.9 % flush 10 mLJump to med 10 mL, Intravenous, Every 12 hours, First dose on Sun11/14/24 at 1600, Until Discontinued, Routine, Holding - Preprocedure And sodium chloride 0.9 % flush 10 mLJump to med 10 mL, Intravenous, As needed, Starting on Sun11/14/24 at 1504, Until Sun11/14/24 at 2250, Routine, Holding - Preprocedure, line care Group 3: metoclopramide (Reglan) tablet 5 mgJump to med 5 mg, Oral, Every 6 hours PRN, Starting on Sun11/09/24 at 1540, Until Sun11/14/24 at 2250, Routine, nausea, vomiting Or metoclopramide (Reglan) injection 5 mgJump to med 5 mg, Intravenous, Every 6 hours PRN, Starting on Sun11/09/24 at 1540, Until Sun11/14/24 at 2250, Routine, nausea, vomiting Group 4: ondansetron ODT (Zofran-ODT) disintegrating tablet 4 mgJump to med 4 mg, Oral, Every 6 hours PRN, Starting on Sun11/08/24 at 1852, Until Sun11/14/24 at 2250, Routine, nausea, vomiting Or ondansetron (Zofran) injection 4 mgJump to med 4 mg, Intravenous, Every 6 hours PRN, Starting on 11/08/24 at 1852, Until Sun11/14/24 at 2250, Routine, vomiting, nausea Or ondansetron (Zofran) 4 MG/5ML solution 4 mgJump to med 4 mg, Oral, Every 6 hours PRN, Starting on 11/08/24 at 1852, Until Sun11/14/24 at 2250, Routine, nausea, vomiting documented in this encounter Additional Health Concerns Infection Onset Date Last Indicated Resolved Time C. difficile Rule-Out 11/11/2024 11/11/20242024 9:22 PM EDT Gastrointestinal Rule-Out 11/11/2024 11/11/2024 10:19 PM EDT Assessment Noted Time A Body Mass Index follow-up plan has been documented for the patient 11/14/2024 8:03 PM EDT documented as of this encounter Care Teams Compliance Field Technician Relationship Specialty Start Date End Date Pcp, [place] [address] PCP - General Family Medicine 06/16/23 documented as of this encounter
--- OUTSIDE RECORDS SUMMARY | 2024-11-17 12:26 | XMS_ITS | Encounter Summary ---
Author Organization [facility] Address [address] [place] [address] Care Team Providers Care Open Die Inspector Name Role Phone Pcp, No Primary Care Provider Unavailabl e Reason for Referral * Imaging (Routine) - Closed Specialty Diagnoses / Procedures Referred By Dung chang Referred To Contact Radiology Diagnoses Metastasis to liver Procedures IR Embolization Tumor or Ischemia or Infarction Franko Nava MD [address] [place] [address] Phone: tel: fax: Referral ID Status Reason Start Date Expiration Date Visits Re quested Visits Authorized [id number] Closed 11/14/2024 05/16/2026 1 1 Reason for Visit * Reason Comments Vomiting * Auth/Cert (Routine) Specialty Diagnoses / Procedures Referred By Dung chang Referred To Contact Diagnoses RUQ abdominal pain Vinicius Love MD [address] [facility] [address] [place] [address] Phone: tel: fax: PAV A Emergency Department [address] [place] [address] Phone: tel: Referral ID Status Reason Start Date Expiration Date Visits Re quested Visits Authorized [id number] 1 1 Encounter Details Date Type Department Care Team (Late st Contact Info) Description 11/17/2024 1:26 PM EDT - 11/21/2024 10:43 AM EDT Hospital Encounter PAV A Inpatient [facility] [address] [place] [id number] Elisabeth Hernandez MD [address] [place] [address] Vinicius Love MD [address] [place] [address] RUQ abdominal pain (Primary Dx); [...] any time in the past 12 m [facility], were you homeless or living in a snf (including now)? No 11/18/2024 [facility] Utilities Answer Date Recorded In the past [...] drink first t nicolas in the morning (EYE-ASPARAGUS BUNCHER) to steady your nerves or to get [...] Ro Barber RN 2. Non-Specific Active Suici sierra Thoughts (Past 1 Month) No 11/20/2024 8:00 AM EDT Vandana Barber RN 6. Suicidal Behavior (Lifetime) No 8:00 AM EDT Ro Barber RN documented as of this encounter Discharge Instructions * Discharge Instructions* Maggie Nguyen MD - 11/17/2024 3:36 PM EDT Call MD agricultural produce commission agent for GYO service if: - you have a fever of 100.4 F or more - vaginal bleeding similar to a period - uncontrolled pain - difficulty with urination - persistent nausea/vomiting Follow up: Dr. Vinicius Love - [facility] [address], [address], [place] [address] documented in this encounter Medications at Time [...] from the original note were not included. [id number] Pantoprazole WHY is this medicine prescribed? Pantoprazole [...] or doctor for a copy of the fringe knotter's information for the patient. Are there OTHER [...] and out of their sight and reach. [email or web address] Dispose of unneeded medications in a way [...] be awakened, immediately call emergency services at 781. What OTHER INFORMATION should I know? Keep [...] of all of the prescription and nonprescription (umbe-ewp-wiqpfci) medicines, vitamins, minerals, and dietary supplements you [...] or pharmacist about specific clinical use. The [place] [employer] represents that the information provided hereunder was formulated with a reasonable standard of care, and in conformity with professional standards in the field. The [place] [employer] makes no representations or warranties, express or implied, including, but not limited to, any implied warranty of merchantability and/or fitness for a particular purpose, with respect to such information and specifically disclaims all such warranties. Users are advised that decisions regarding drug therapy are complex medical decisions requiring the independent, informed decision of an appropriate health technical healthcare consultant, and the information is provided for informational purposes only. The entire monograph for a drug should be reviewed for a thorough understanding of the drug's actions, uses and side effects. The [place] does not endorse or recommend the use of any drug.The information is not a substitute for medical care. AHFS?? Patient Medication Information?. ?? Copyright, 2023. The [place]??, [address], [address], [place], [place]. All Rights Reserved. Duplication for commercial use must be authorized by [facility]. Selected Revisions: January 24, 2023. AHFS?? Patient Medication Information?. ?? Copyright, 2024 * Ismael [facility] - Kim Black RN - 11/21/2024 8:57 AM EDT Images from the original note were not included. [id number] Ondansetron WHY is this medicine prescribed? Ondansetron [...] and out of their sight and reach. [email or web address] Dispose of unneeded medications in a way [...] be awakened, immediately call emergency services at 819. Symptoms of overdose may include: ? sudden [...] of all of the prescription and nonprescription (rzob-bgj-jvonucn) medicines, vitamins, minerals, and dietary supplements you [...] or pharmacist about specific clinical use. The [place] [employer] represents that the information provided hereunder was formulated with a reasonable standard of care, and in conformity with professional standards in the field. The [place] makes no representations or warranties, express or implied, including, but not limited to, any implied warranty of merchantability and/or fitness for a particular purpose, with respect to such information and specifically disclaims all such warranties. Users are advised that decisions regarding drug therapy are complex medical decisions requiring the independent, informed decision of an appropriate health technical healthcare consultant, and the information is provided for informational purposes only. The entire monograph for a drug should be reviewed for a thorough understanding of the drug's actions, uses and side effects. The [place] [employer] does not endorse or recommend the use of any drug.The information is not a substitute for medical care. AHFS?? Patient Medication Information?. ?? Copyright, 2023. The [employer]??, [address], [address], [place], [place]. All Rights Reserved. Duplication for commercial use must be authorized by [facility]. Selected Revisions: September 29, 2023. AHFS?? Patient Medication Information?. ?? Copyright, 2024 * Ismael [facility] - Kim Black RN - 11/21/2024 8:57 AM EDT Images from the original note were not included. [id number] Magnesium Oxide WHY is this medicine prescribed? [...] of all of the prescription and nonprescription (ehuo-whp-mdwjzlc) medicines, vitamins, minerals, and dietary supplements you [...] or pharmacist about specific clinical use. The [place] [employer] represents that the information provided hereunder was formulated with a reasonable standard of care, and in conformity with professional standards in the field. The [place] makes no representations or warranties, express or implied, including, but not limited to, any implied warranty of merchantability and/or fitness for a particular purpose, with respect to such information and specifically disclaims all such warranties. Users are advised that decisions regarding drug therapy are complex medical decisions requiring the independent, informed decision of an appropriate health technical healthcare consultant, and the information is provided for informational purposes only. The entire monograph for a drug should be reviewed for a thorough understanding of the drug's actions, uses and side effects. The [place] [employer] does not endorse or recommend the use of any drug.The information is not a substitute for medical care. AHFS?? Patient Medication Information?. ?? Copyright, 2023. The [employer]??, [address], [address], [place], [place]. All Rights Reserved. Duplication for commercial use must be authorized by [facility]. Selected Revisions: August 30, 2023. AHFS?? Patient Medication Information?. ?? Copyright, 2024 * [facility] - Kim Black RN - 11/21/2024 8:56 AM EDT Images from the original note were not included. [id number] Abdominal Pain Abdominal pain means pain in [...] All medicines you take, both prescription and wgiu-wdv-feqjswe ? What vitamins, herbs, and other supplements [...] again, start lightly. Eat small amounts of hlyq-vn-nbvkfu, low-fat foods. These include applesauce, toast, or [...] bed. Last Reviewed Date: 2023 00:00:00 ?? 5969-2654 The Last [employer]. All rights reserved. This information is not intended as a substitute for professional medical care. Always follow your healthcare professional's instructions. * Discharge Instr - Other Orders - Kim Black RN - 11/21/2024 8:56 AM EDT If you need to contact your doctors after hours, please call [phone] and ask for the doctor brittany for GYO-PRICING ANALYST Oncology. * Discharge Summary - Maggie Nguyen MD - 11/21/2024 8:21 AM EDT Images from the original note were not included. DISCHARGE SUMMARY Hospitalization Admit Date/Time: 11/17/2024 1:26 PM Admitting Attending: Vinicius Love Discharge Date: 11/21/2024 Discharge Attending Physician: Vinicius Love MD PCP name and Address: Pcp, Saloni Hyde [facility] [address] Referring provider name and address: No referring provider defined for this encounter. Chief Concern, Brief History of Present Illness, and Hospital Course Radha Aparicio is a 44 y.o. with high grade endometroid adenocarcinoma who presented with n/v and loose stools and was admitted on 11/17. RUQ US showed gallbladder thickening concerning for cholecystitis. Patient was made NPO and underwent Bennett embolization of liver mass and liver mass [...] MD in 1 week. Surgeries and Procedures Bennett embolization of liver mass with liver mass [...] Your Medications These medications were sent to [facility] - [place], [place] - 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 Vinicius Love - [facility] [address], [address], [place] [address] Outpatient Follow-Up Future Appointments Date Time Provider [...] am with associated diarrhea - Labs H 23-60-1n-16-42-0c-26-22-1u P 308-220-249 W 43-7-31-15-13 Lipase 14 - RUQ US 11/17: cholelithiasis w/ gallbladder wall thickening c/f cholecystitis. Redemonstrated largeintraparenchymal liver mass. Few punctate nonobstructive renal calculi in R kidney, no hydro - PE: +[place] sign, no signs of acute peritonitis - [...] biopsy with IR on 11/18 - AST [phone] ALT [phone] - T. Bili 0.7-0.7 - discussed with [...] per chart review) with Dr. Veloz at [facility] - Lost to follow up due [...] several large liver lesions (right dome -- [id number] (enlarged from 4.7 x 4.2) & 10.5 [...] conclusion of chemotherapy) - Care transferred to [facility] 11/10, s/p cefoxitin (11/08-11/10) - s/p liver embolization and biopsy 11/18 - liver biopsy 11/18 positive for malignant carcinoma # FEN/PPX - GIS/HLIV - SCDs/pLov - Replete electrolytes PRN Dispo: Discharge today Please message on-call [facility] resident via [employer] Secure Chat or page [phone] for questions or concerns regarding this patient's [...] Note Radha Aparicio 44 y.o. female CSN: [id number] Admission: 11/17/2024 1:26 PM Primary Problem: RUQ abdominal pain Primary Directory Operator: Primary Caregiver: Self Assistance Available at Discharge: aunt Clara and Jennifer Current Outpatient/Agency/Support Group: clinic(s) Availability of Care Givers (#Hours): 24 hours Family/Directory Operator(s) Willingness Assessed to care for patient at home: Yes Family/Directory Operator(s) Readiness Assessed to care for patient at home: Yes Housing Circumstances-Z Codes: Housing Circumstances (select all that apply): Low Income (101-300% Federal Poverty Guidlines) - Z596 Discharge Facility/Level of Care Needs: Discharge Facility/Level of Care Needs: 1-Home or Self Care Patient's Choice of Community Agency(s): [facility] clinic Patient/Family Anticipated Services at Transition: Patient/Family [...] and will provide transport and home assistance. [id number] enrollment complete. Radha Langston RN * Significant [...] cholecystitis. Patient was made NPO and underwent Bennett embolization of liver mass and liver mass [...] am with associated diarrhea - Labs H 64-92-8o-25-21-1u P 308-220-249 W 12-9-11 Lipase 14 - RUQ US 11/17: cholelithiasis w/ gallbladder wall thickening c/f cholecystitis. Redemonstrated largeintraparenchymal liver mass. Few punctate nonobstructive renal calculi in R kidney, no hydro - PE: +[place] sign, no signs of acute peritonitis - [...] per chart review) with Dr. Veloz at [facility] - Lost to follow up due [...] several large liver lesions (right dome -- [id number] (enlarged from 4.7 x 4.2) & 10.5 [...] management. Please message on-call GYO resident via [employer] Secure Chat or page [phone] for questions or concerns regarding this patient's [...] from the original note were not included. 86465 Preventing a Surgical Site Infection A risk [...] of infection. ? Controlled body temperature. A bggdg-uusb-aotbys temperature during or after surgery prevents oxygen [...] and water or with an alcohol-based hand coffee attendant before and after caring for you. Don?t [...] away. Last Reviewed Date: 2024 00:00:00 ?? 2701-8994 The Last [employer]. All rights reserved. This information is not intended as a substitute for professional medical care. Always follow your healthcare professional's instructions. * Ismael On[facility] - Erika Sawyer RN - 11/19/2024 9:24 AM EDT Images from the original note were not included. 81040 HIDA Scan A HIDA (hepatobiliary iminodiacetic acid [...] you?re taking. This includes vitamins, herbs, and zrvo-fak-byutjbn medicines. You may be told to stop [...] is done by a nuclear medicine or lab technologist. It can be done in a [...] tracer Last Reviewed Date: 2022 00:00:00 ?? 4763-1251 The Last [employer]. All rights reserved. This information is not intended as a substitute for professional medical care. Always follow your healthcare professional's instructions. * Ismael Velázquez - Erika Sawyer RN - 11/19/2024 9:24 AM EDT Images from the original note were not included. 239237rh Possible Gallstone with Biliary Colic (Presumed) Your [...] rate Last Reviewed Date: 2021 00:00:00 ?? 4694-1902 The [employer]. All rights reserved. This information is not intended as a substitute for professional medical care. Always follow your healthcare professional's instructions. * Ismael Velázquez - Erika Sawyer RN - 11/19/2024 9:24 AM EDT Images from the original note were not included. 23357 Cholecystectomy You?ve had painful attacks caused by [...] medicines you take. Include both prescription and jmxw-lap-gmhvdji medicines. Also include vitamins, herbs, and supplements. [...] time Last Reviewed Date: 2023 00:00:00 ?? 3311-5238 The Last [employer]. All rights reserved. This information is not [...] the video go to this web address: [email or web address] Or, scan this QR code with your smart phone ?? [facility] [facility] * Consults - Shruthi Espitia RD - 11/19/2024 8:26 AM EDT Adult Nutrition Evaluation Note Radha Aparicio 44 y.o. female CSN: [id number] Room/Bed 140/140A Nutrition evaluation type: assessment Reason [...] 2 (BMI 35-39.9) Weight History: UBW ~245# Hayden Body Weight (kg): 65.9 Percent Hayden Body Weight: 174 Estimated Needs: Current Nutrition [...] Miguel Estes MD on 11/18/2024 7:06 PM US [...] in R kidney, no hydro - PE: +[place] sign, no signs of acute peritonitis - [...] per chart review) with Dr. Veloz at [facility] - Lost to follow up due [...] several large liver lesions (right dome -- [id number] (enlarged from 4.7 x 4.2) & 10.5 [...] conclusion of chemotherapy) - Care transferred to [facility] 11/10, s/p cefoxitin (11/08-11/10) - s/p liver embolization and biopsy 11/18 Plan: - f/up biopsy results # FEN/PPX - NPO/LR @ 75 - SCDs/hold plov in setting of hemorrhagic liver lesions - Replete electrolytes PRN Dispo: Continue inpatient management. Please message on-call GYO resident via [employer] Secure Chat or page [phone] for questions or concerns regarding this patient's [...] Note Radha Aparicio 44 y.o. female CSN: [id number] Admission: 11/17/2024 1:26 PM Primary Problem: RUQ abdominal pain Streetcar Dispatcher reviewed chart and spoke with patient to complete this Initial Case Management Assessment. PCP: Dr. Benny Gonzalez Emergency Contact: Extended Emergency Contact Information Primary Emergency Contact: Kaushal Aparicio Mobile Relation: Brother Preferred language: Turkish Fairground Operator needed? No Secondary Emergency Contact: Irish Joiner Mobile Relation: Daughter Insurance: Primary Visit Coverage Payer Plan Sponsor Code Group Number Group Name [employer] [facility] MEDICAID . Primary Visit Coverage Subscriber Subscriber ID Subscriber Name Subscriber SSN Subscriber Address [id number] RADHA APARICIO [id number] [place] [id number] Patient information: re-admit to with high grade endometrioid adenocarcinoma and persistent n/v/diarrhea and ab pain c/f cholecystitis. Patient reports doing well on pain and nausea regimen since discharge 11/12 Nausea and vomiting started 9/8 am with associated diarrhea. Home address and insurance confirmed. Reports good support from family and home assistance and transport. Daily Living Activities: independent [address] [place] [address] Current DME: none reported. Income Information: unemployed Income meets expenses. Housing Circumstances-Z Codes: low income 101-300% Federal Poverty Guideline Patient Referred to: n/a Anticipated Discharge Date: 2-4 day Patient's Discharge Goal: home Assistance Available at Discharge: self/family Discharge Transport: family Follow Up Transport: family Home Health / Home Infusion / Outpatient Dialysis Services: none reported Living Will/Advance Directive/Power of Drier And Evaporator Operator /Guardian: none reported Have you reviewed your [...] also pertinent to this visit. Planned Procedure: Bennett embolization of liver mass with liver mass [...] been discussed with the patient and/or their branch sales and service representative. All questions answered and they agree [...] to: Patient * Progress Notes - Deysi Pindeo MD - 11/18/2024 3:40 AM EDT Gynecologic [...] in R kidney, no hydro - PE: +[place] sign, no signs of acute peritonitis - [...] per chart review) with Dr. Veloz at [facility] - Lost to follow up due [...] several large liver lesions (right dome -- [id number] (enlarged from 4.7 x 4.2) & 10.5 [...] management. Please message on-call [facility]YO resident via [employer] Secure Chat or page [phone] for questions or concerns regarding this patient's [...] that would be needed Recommend admission to commissioned security officer onc vs medicine EGS will continue to follow * H&P - Rebekah Kwan MD - 11/17/2024 4:08 PM EDT Gynecologic Oncology History and Physical Patient Name: Radha Aparicio : 1980 Date of Admission: 11/17/24 Chief Concern: Chief Complaint Patient presents with Vomiting Primary Oncologist: Dr. Vinicius Love/Dr. Veloz ([place]) Subjective Subjective History of Present Illness: Radha [...] no distension. Tenderness: Tenderness: TTP of RUQ, +[place] sign. There is no guarding or rebound. [...] 2:59 PM @IMGFNDKAYE@ Assessment/Plan Assessment / Plan Radha Aparicio is [...] in R kidney, no hydro - PE: +[place] sign, no signs of acute peritonitis - [...] per chart review) with Dr. Veloz at [facility] - Lost to follow up due [...] several large liver lesions (right dome -- [id number] (enlarged from 4.7 x 4.2) & 10.5 [...] acute Please message on-call GYO resident via [employer] Secure Chat or page [phone] for questions or concerns regarding this patient's care. Rebekah FLORES PGY-1 *1953 [1] Past Medical History: Diagnosis Date Disease of salivary gland, unspecified Parotid mass [2] Past Surgical History: Procedure Laterality Date HYSTERECTOMY N/A Hysterectomy from [facility] TUBAL LIGATION N/A Tubal ligation from [facility] [3] Family History Problem Relation [...] No Social Connections: Unknown (12/17/2022) Received from [facility] Family and Community Support Help with Day-to-Day [...] hysterectomy in 2018 along with chemo from [phone]) that previously saw the GYO team and was lost to follow up who recently was admitted with concern for RUQ pain, with recent admission when noted tohave worsening mets to liver and spleen with further workup pending and negative cholecystitis concern presenting to [facility] on 11/17/2024 with recurrent RUQ symptoms. [...] that would be needed Recommend admission to commissioned security officer onc vs medicine EGS will continue to [...] (BMI 30-39.9) Dispo: Admit to medicine vs commissioned security officer onc CODE STATUS: not specified This Consult, [...] and urinary symptoms. History provided by: Patient forms examiner used: No I have reviewed and agree [...] to imaging from 2023. There was concern forintratumoral hemorrhage within the hepatic lesions, and underwent embolization and biopsy on 11/14,and was discharged from the gynecology oncology service [...] taking her home medications. She reports few episode s of watery diarrhea as well. She denies [...] and Affect: Mood normal. Behavior: Behavior normal. [place] Coma Scale Score: 15 ED Course & [...] COURSE: ED Course as of 11/17/24 1733 Mon Nov 17, 2024 1400 Laboratory studies [...] evaluate [RM] 1636 EGS rec: admission to commissioned security officer onc vs medicine. recommend HIDA scan to further evaluate if there isconcern for cholecystitis before considering risks and benefits of any intervention that would be needed based on that [PA] 1731 PRICING ANALYST ONC to admit patient to their team. [...] admission for the listed diagnoses. The OG PRICING ANALYST service wasconsulted for admission and was agreeable to admit to Acute Floor (Med/Surg). ED Prescriptions None Disposition Admit Admitting/Attending Physician: VINICIUS LOVE [[id number]] Provider Care Team: GYO PRICING ANALYST ONCOLOGY [[id number]] Are they the primary team?: [...] EST Appointment [facility] Radiology [address] [place] [address] 03/19/2025 1:45 PM EST Office Visit [facility] Gynecology [address] [place] [address] Vinicius Love MD [address] [place] [address] Pending Results Name Type Priority [...] - 4.5 mg/dL 11/21/2024 5:27 AM EDT [facility] Blood Venous blood specimen / Unknown Venipuncture / Unknown 11/21/2024 3:19 AM EDT 11/21/2024 3:27 AM EDT Vinicius Love MD LAB BLOOD ORDERABLES Final Re sult Performing Organization Address City/[facility]/[place] [address] * (ABNORMAL) Magnesium (11/21/2024 3:19 AM EDT) Magnesium, Plasma 1.6(L) 1.9 - 2.4 mg/dL 11/21/2024 3:58 AM EDT [facility] Blood Venous blood specimen / Unknown Venipuncture / Unknown 11/21/2024 3:19 AM EDT 11/21/2024 3:27 AM EDT Vinicius Love MD LAB BLOOD ORDERABLES Final Re sult Performing Organization Address [facility]/[place] [address] * (ABNORMAL) IONIZED CALCIUM, SERUM (11/21/2024 3:19 AM EDT) Ionized Calcium, Serum 4.5(L) 4.6 - 5.3 mg/dL LAB HEMATOLOGY METHOD 11/21/2024 3:53 AM EDT [facility] Blood Venous blood specimen / Unknown Venipuncture / Unknown 11/21/2024 3:19 AM EDT 11/21/2024 3:27 AM EDT us Vinicius Love MD LAB BLOOD ORDERABLES Final Re sult Performing Organization Address City/[facility]/ZIP Co de Phone Number [facility] [address] [place], [place] [id number] * (ABNORMAL) Comprehensive metabolic panel (11/21/2024 3:19 AM EDT) [facility] Signature Glucose, Plasma 116(H) 74 - 99 mg/dL 11/21/2024 3:58 AM EDT [facility] BUN, Plasma 11 7 - 21 mg/dL 11/21/2024 3:58 AM EDT [facility] Creatinine, Plasma 0.77 0.60 - 1.10 mg/dL 11/21/2024 3:58 AM EDT [facility] BUN/Creatinine Ratio 14 11/21/2024 3:58 AM EDT [facility] Sodium, Plasma 137 136 - 145 mmol/L 11/21/2024 3:58 AM EDT [facility] Potassium, Plasma 3.4(L) 3.6 - 4.9 mmol/L 11/21/2024 3:58 AM EDT [facility] Chloride, Plasma 103 97 - 107 mmol/L 11/21/2024 3:58 AM EDT [facility] CO2, Plasma 21(L) 22 - 29 mmol/L 11/21/2024 3:58 AM EDT [facility] Anion Gap 13 6 - 16 mmol/L 11/21/2024 3:58 AM EDT [facility] Total Calcium, Plasma 7.9(L) 8.9 - 10.2 mg/dL 11/21/2024 3:58 AM EDT [facility] Total Protein 5.7(L) 6.3 - 7.9 g/dL 11/21/2024 3:58 AM EDT [facility] Albumin, Plasma 2.4(L) 3.5 - 5.2 g/dL 11/21/2024 3:58 AM EDT [facility] AST, Plasma 188(H) 10 - 35 U/L 11/21/2024 3:58 AM EDT [facility] ALT, Plasma 167(H) 10 - 35 U/L 11/21/2024 3:58 AM EDT [facility] Alkaline Phosphatase, Plasma 505(H) 35 - 104 U/L 11/21/2024 3:58 AM EDT [facility] Total Bilirubin, Plasma 1.0 0.2 - 1.1 mg/dL 11/21/2024 3:58 AM EDT [facility] eGFRcr 96.5 mL/min/1.7 3m*2 11/21/2024 3:58 AM EDT [facility] Comment:Reported eGFRcr in m L/min/1.73m2 is based the CKD-EPI 2020 equation that does not use a race coefficient. Blood Venous blood specimen / Unknown Venipuncture / Unknown 11/21/2024 3:19 AM EDT 11/21/2024 3:27 AM EDT us Vinicius Love MD LAB BLOOD ORDERABLES Final Re sult [facility] [address] [place] [address] * (ABNORMAL) CBC W/O Differential (11/21/2024 3:19 AM EDT) WBC Count 12.55(H) 3.70 - 10.30 10*3/uL LAB HEMATOLOGY METHOD 11/21/2024 3:35 AM EDT [facility] RBC Count 2.70(L) 3.90 - 5.20 10*6/uL LAB HEMATOLOGY METHOD 11/21/2024 3:35 AM EDT [facility] HGB 7.3(L) 11.2 - 15.7 g/dL LAB HEMATOLOGY METHOD 11/21/2024 3:35 AM EDT [facility] HCT 22.1(L) 34.0 - 45.0 % LAB HEMATOLOGY METHOD 11/21/2024 3:35 AM EDT [facility] Platelet Count 236 155 - 369 10*3/uL LAB HEMATOLOGY METHOD 11/21/2024 3:35 AM EDT [facility] MCV 82 79 - 98 fL LAB HEMATOLOGY METHOD 11/21/2024 3:35 AM EDT [facility] MCH 27.0 26.0 - 32.0 pg LAB HEMATOLOGY METHOD 11/21/2024 3:35 AM EDT [facility] MCHC 33.0 30.7 - 35.5 g/dL LAB HEMATOLOGY METHOD 11/21/2024 3:35 AM EDT [facility] RDW 16.0(H) 11.5 - 14.5 % LAB HEMATOLOGY METHOD 11/21/2024 3:35 AM EDT [facility] MPV 9.7 8.8 - 12.5 fL LAB HEMATOLOGY METHOD 11/21/2024 3:35 AM EDT [facility] nRBC 0.0 <=0.0 per 100 WBCs LAB HEMATOLOGY METHOD 11/21/2024 3:35 AM EDT [facility] Blood Venous blood specimen / Unknown Venipuncture / Unknown 11/21/2024 3:19 AM EDT 11/21/2024 3:28 AM EDT us Vinicius Love MD LAB BLOOD ORDERABLES Final Re sult [facility] [address] [place] [address] * (ABNORMAL) Comprehensive metabolic panel (11/20/2024 12:42 PM EDT) Glucose, Plasma 119(H) 74 - 99 mg/dL 11/20/2024 1:49 PM EDT [facility] BUN, Plasma 13 7 - 21 mg/dL 11/20/2024 1:49 PM EDT [facility] Creatinine, Plasma 0.79 0.60 - 1.10 mg/dL 11/20/2024 1:49 PM EDT [facility] BUN/Creatinine Ratio 16 11/20/2024 1:49 PM EDT [facility] Sodium, Plasma 135(L) 136 - 145 mmol/L 11/20/2024 1:49 PM EDT [facility] Potassium, Plasma 3.8 3.6 - 4.9 mmol/L 11/20/2024 1:49 PM EDT [facility] Chloride, Plasma 103 97 - 107 mmol/L 11/20/2024 1:49 PM EDT [facility] CO2, Plasma 20(L) 22 - 29 mmol/L 11/20/2024 1:49 PM EDT [facility] Anion Gap 12 6 - 16 mmol/L 11/20/2024 1:49 PM EDT [facility] Total Calcium, Plasma 8.1(L) 8.9 - 10.2 mg/dL 11/20/2024 1:49 PM EDT [facility] Total Protein 6.3 6.3 - 7.9 g/dL 11/20/2024 1:49 PM EDT [facility] Albumin, Plasma 2.7(L) 3.5 - 5.2 g/dL 11/20/2024 1:49 PM EDT [facility] AST, Plasma 442(H) 10 - 35 U/L 11/20/2024 1:49 PM EDT [facility] ALT, Plasma 254(H) 10 - 35 U/L 11/20/2024 1:49 PM EDT [facility] Alkaline Phosphatase, Plasma 513(H) 35 - 104 U/L 11/20/2024 1:49 PM EDT [facility] Total Bilirubin, Plasma 1.1 0.2 - 1.1 mg/dL 11/20/2024 1:49 PM EDT [facility] eGFRcr 93.6 mL/min/1.7 3m*2 11/20/2024 1:49 PM EDT [facility] Comment:Reported eGFRcr in m L/min/1.73m2 is based the CKD-EPI 2020 equation that does not use a race coefficient. Blood Venous blood specimen / Unknown Venipuncture / Unknown 11/20/2024 12:42 PM EDT 11/20/2024 1:11 PM EDT us Vinicius Love MD LAB BLOOD ORDERABLES Final Re sult [facility] [address] [place] [address] * (ABNORMAL) CBC W/O Differential (11/20/2024 12:42 PM EDT) WBC Count 15.25(H) 3.70 - 10.30 10*3/uL LAB HEMATOLOGY METHOD 11/20/2024 1:23 PM EDT [facility] RBC Count 3.09(L) 3.90 - 5.20 10*6/uL LAB HEMATOLOGY METHOD 11/20/2024 1:23 PM EDT [facility] HGB 8.5(L) 11.2 - 15.7 g/dL LAB HEMATOLOGY METHOD 11/20/2024 1:23 PM EDT [facility] HCT 25.5(L) 34.0 - 45.0 % LAB HEMATOLOGY METHOD 11/20/2024 1:23 PM EDT [facility] Platelet Count 292 155 - 369 10*3/uL LAB HEMATOLOGY METHOD 11/20/2024 1:23 PM EDT [facility] MCV 83 79 - 98 fL LAB HEMATOLOGY METHOD 11/20/2024 1:23 PM EDT [facility] MCH 27.5 26.0 - 32.0 pg LAB HEMATOLOGY METHOD 11/20/2024 1:23 PM EDT [facility] MCHC 33.3 30.7 - 35.5 g/dL LAB HEMATOLOGY METHOD 11/20/2024 1:23 PM EDT [facility] RDW 15.9(H) 11.5 - 14.5 % LAB HEMATOLOGY METHOD 11/20/2024 1:23 PM EDT [facility] MPV 9.7 8.8 - 12.5 fL LAB HEMATOLOGY METHOD 11/20/2024 1:23 PM EDT [facility] nRBC 0.0 <=0.0 per 100 WBCs LAB HEMATOLOGY METHOD 11/20/2024 1:23 PM EDT [facility] Blood Venous blood specimen / Unknown Venipuncture / Unknown 11/20/2024 12:42 PM EDT 11/20/2024 1:06 PM EDT us Vinicius Love MD LAB BLOOD ORDERABLES Final Re sult [facility] [address] [place] [address] * Transfuse RBC (11/20/2024 10:47 AM EDT) us Vinicius Love MD BLOOD TRANSFUSION ORDERABLES Final Result * Transfuse RBC: 1 Units (11/20/2024 10:47 AM EDT) us Vinicius Love MD BLOOD TRANSFUSION ORDERABLES Final Result * Prepare Leukocyte Reduced RBC: 1 Units (11/20/2024 5:27 AM EDT) Product Code [id number] CH BLOO D BANK Dispense Status Transfused BLOOD BANK Blood Expiration Date [id number] BLOOD BANK Unit Number [id number] CH B LOOD BANK Product Blood Type 5100 BLOOD BANK Blood Type O+ CH BLOOD BANK Crossmatch Compatible BLOOD BANK Other Vinicius Love MD BLOOD BANK PRODUCT ORDERABLES Final Result Performing Organization Address City/[facility]/ZIP Co de Phone Number BLOOD BANK [address] [place] [address], * Prepare Leukocyte Reduced RBC: 1 Units (11/20/2024 4:53 AM EDT) Product Code [id number] BLOO D BANK Dispense Status Transfused BLOOD BANK Blood Expiration Date [id number] BLOOD BANK Unit Number [id number] B LOOD BANK Product Blood Type 5100 BLOOD BANK Blood Type O+ BLOOD BANK Crossmatch Compatible BLOOD BANK Other Vinicius Love MD BLOOD BANK PRODUCT ORDERABLES Final Result Performing Organization Address [facility] Co de Phone Number BLOOD BANK [address] * (ABNORMAL) Magnesium (11/20/2024 2:39 AM EDT) Magnesium, Plasma 1.7(L) 1.9 - 2.4 mg/dL 11/20/2024 4:00 AM EDT [facility] Blood Venous blood specimen / Unknown Venipuncture / Unknown 11/20/2024 2:39 AM EDT 11/20/2024 3:28 AM EDT Vinicius Love MD LAB BLOOD ORDERABLES Final Re sult [facility] [address] [place] [address] * IONIZED CALCIUM, SERUM (11/20/2024 2:39 AM EDT) Ionized Calcium, Serum 4.6 4.6 - 5.3 mg/dL LAB HEMATOLOGY METHOD 11/20/2024 4:06 AM EDT [facility] Blood Venous blood specimen / Unknown Venipuncture / Unknown 11/20/2024 2:39 AM EDT 11/20/2024 3:28 AM EDT us Vinicius Love MD LAB BLOOD ORDERABLES Final Re sult [facility] [address] [place] [address] * (ABNORMAL) Comprehensive metabolic panel (11/20/2024 2:39 AM EDT) Pathologist [facility] Glucose, Plasma 108(H) 74 - 99 mg/dL 11/20/2024 4:17 AM EDT [facility] BUN, Plasma 15 7 - 21 mg/dL 11/20/2024 4:17 AM EDT [facility] Creatinine, Plasma 0.91 0.60 - 1.10 mg/dL 11/20/2024 4:17 AM EDT [facility] BUN/Creatinine Ratio 16 11/20/2024 4:17 AM EDT [facility] Sodium, Plasma 139 136 - 145 mmol/L 11/20/2024 4:17 AM EDT [facility] Potassium, Plasma 3.9 3.6 - 4.9 mmol/L 11/20/2024 4:17 AM EDT [facility] Chloride, Plasma 105 97 - 107 mmol/L 11/20/2024 4:17 AM EDT [facility] CO2, Plasma 22 22 - 29 mmol/L 11/20/2024 4:17 AM EDT [facility] Anion Gap 12 6 - 16 mmol/L 11/20/2024 4:17 AM EDT [facility] Total Calcium, Plasma 8.0(L) 8.9 - 10.2 mg/dL 11/20/2024 4:17 AM EDT [facility] Total Protein 6.0(L) 6.3 - 7.9 g/dL 11/20/2024 4:17 AM EDT [facility] Albumin, Plasma 2.5(L) 3.5 - 5.2 g/dL 11/20/2024 4:17 AM EDT [facility] AST, Plasma 701(H) 10 - 35 U/L 11/20/2024 4:17 AM EDT [facility] ALT, Plasma 326(H) 10 - 35 U/L 11/20/2024 4:17 AM EDT [facility] Alkaline Phosphatase, Plasma 478(H) 35 - 104 U/L 11/20/2024 4:17 AM EDT [facility] Total Bilirubin, Plasma 0.7 0.2 - 1.1 mg/dL 11/20/2024 4:17 AM EDT [facility] eGFRcr 79.0 mL/min/1.7 3m*2 11/20/2024 4:17 AM EDT [facility] Comment:Reported eGFRcr in m L/min/1.73m2 is based the CKD-EPI 2020 equation that does not use a race coefficient. Blood Venous blood specimen / Unknown Venipuncture / Unknown 11/20/2024 2:39 AM EDT 11/20/2024 3:28 AM EDT us Vinicius Love MD LAB BLOOD ORDERABLES Final Re sult [facility] [address] [place] [address] * (ABNORMAL) CBC W/O Differential (11/20/2024 2:39 AM EDT) WBC Count 10.93(H) 3.70 - 10.30 10*3/uL LAB HEMATOLOGY METHOD 11/20/2024 3:40 AM EDT [facility] RBC Count 2.57(L) 3.90 - 5.20 10*6/uL LAB HEMATOLOGY METHOD 11/20/2024 3:40 AM EDT [facility] HGB 6.7(L) 11.2 - 15.7 g/dL LAB HEMATOLOGY METHOD 11/20/2024 3:40 AM EDT [facility] HCT 21.2(L) 34.0 - 45.0 % LAB HEMATOLOGY METHOD 11/20/2024 3:40 AM EDT [facility] Platelet Count 261 155 - 369 10*3/uL LAB HEMATOLOGY METHOD 11/20/2024 3:40 AM EDT [facility] MCV 83 79 - 98 fL LAB HEMATOLOGY METHOD 11/20/2024 3:40 AM EDT [facility] MCH 26.1 26.0 - 32.0 pg LAB HEMATOLOGY METHOD 11/20/2024 3:40 AM EDT [facility] MCHC 31.6 30.7 - 35.5 g/dL LAB HEMATOLOGY METHOD 11/20/2024 3:40 AM EDT [facility] RDW 16.5(H) 11.5 - 14.5 % LAB HEMATOLOGY METHOD 11/20/2024 3:40 AM EDT [facility] MPV 10.1 8.8 - 12.5 fL LAB HEMATOLOGY METHOD 11/20/2024 3:40 AM EDT [facility] nRBC 0.0 <=0.0 per 100 WBCs LAB HEMATOLOGY METHOD 11/20/2024 3:40 AM EDT [facility] Blood Venous blood specimen / Unknown Venipuncture / Unknown 11/20/2024 2:39 AM EDT 11/20/2024 3:24 AM EDT us Vinicius Love MD LAB BLOOD ORDERABLES Final Re sult [facility] [address] [place] [address] * NM Hepatobiliary Scan w Pharm Challenge [...] Ensure 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 At 58 [...] 11/19/2024 5:29 PM us Vinicius Love MD IM NM PROCEDURES Final Resul t * Magnesium (11/19/2024 4:11 AM EDT) Magnesium, Plasma 2.0 1.9 - 2.4 mg/dL 11/19/2024 5:24 AM EDT [facility] Blood Venous blood specimen / Unknown Venipuncture / Unknown 11/19/2024 4:11 AM EDT 11/19/2024 4:17 AM EDT Vinicius Love MD LAB BLOOD ORDERABLES Final Re sult Performing Organization Address [facility]/ZIP Co de Phone Number [facility] [address] [place] [address] * IONIZED CALCIUM, SERUM (11/19/2024 4:11 AM EDT) Ionized Calcium, Serum 4.7 4.6 - 5.3 mg/dL LAB HEMATOLOGY METHOD 11/19/2024 4:45 AM EDT [facility] Blood Venous blood specimen / Unknown Venipuncture / Unknown 11/19/2024 4:11 AM EDT 11/19/2024 4:17 AM EDT Vinicius Love MD LAB BLOOD ORDERABLES Final Re sult Performing Organization Address [facility] Co de Phone Number [facility] [address] [place] [address] * (ABNORMAL) Comprehensive metabolic panel (11/19/2024 4:11 AM EDT) Glucose, Plasma 118(H) 74 - 99 mg/dL 11/19/2024 5:24 AM EDT [facility] BUN, Plasma 11 7 - 21 mg/dL 11/19/2024 5:24 AM EDT [facility] Creatinine, Plasma 0.79 0.60 - 1.10 mg/dL 11/19/2024 5:24 AM EDT [facility] BUN/Creatinine Ratio 14 11/19/2024 5:24 AM EDT [facility] Sodium, Plasma 139 136 - 145 mmol/L 11/19/2024 5:24 AM EDT [facility] Potassium, Plasma 4.4 3.6 - 4.9 mmol/L 11/19/2024 5:24 AM EDT [facility] Chloride, Plasma 104 97 - 107 mmol/L 11/19/2024 5:24 AM EDT [facility] CO2, Plasma 20(L) 22 - 29 mmol/L 11/19/2024 5:24 AM EDT [facility] Anion Gap 15 6 - 16 mmol/L 11/19/2024 5:24 AM EDT [facility] Total Calcium, Plasma 8.4(L) 8.9 - 10.2 mg/dL 11/19/2024 5:24 AM EDT [facility] Total Protein 6.9 6.3 - 7.9 g/dL 11/19/2024 5:24 AM EDT [facility] Albumin, Plasma 3.0(L) 3.5 - 5.2 g/dL 11/19/2024 5:24 AM EDT [facility] AST, Plasma 1,474(H) 10 - 35 U/L 11/19/2024 5:24 AM EDT [facility] ALT, Plasma 388(H) 10 - 35 U/L 11/19/2024 5:24 AM EDT [facility] Alkaline Phosphatase, Plasma 321(H) 35 - 104 U/L 11/19/2024 5:24 AM EDT [facility] Total Bilirubin, Plasma 0.7 0.2 - 1.1 mg/dL 11/19/2024 5:24 AM EDT [facility] eGFRcr 93.6 mL/min/1.7 3m*2 11/19/2024 5:24 AM EDT [facility] Comment:Reported eGFRcr in m L/min/1.73m2 is based the CKD-EPI 2020 equation that does not use a race coefficient. Blood Venous blood specimen / Unknown Venipuncture / Unknown 11/19/2024 4:11 AM EDT 11/19/2024 4:17 AM EDT us Vinicius Love MD LAB BLOOD ORDERABLES Final Re sult [facility] [address] [place] [address] * (ABNORMAL) CBC W/O Differential (11/19/2024 4:11 AM EDT) WBC Count 10.74(H) 3.70 - 10.30 10*3/uL LAB HEMATOLOGY METHOD 11/19/2024 4:37 AM EDT [facility] RBC Count 2.90(L) 3.90 - 5.20 10*6/uL LAB HEMATOLOGY METHOD 11/19/2024 4:37 AM EDT [facility] HGB 7.8(L) 11.2 - 15.7 g/dL LAB HEMATOLOGY METHOD 11/19/2024 4:37 AM EDT [facility] HCT 24.5(L) 34.0 - 45.0 % LAB HEMATOLOGY METHOD 11/19/2024 4:37 AM EDT [facility] Platelet Count 249 155 - 369 10*3/uL LAB HEMATOLOGY METHOD 11/19/2024 4:37 AM EDT [facility] MCV 85 79 - 98 fL LAB HEMATOLOGY METHOD 11/19/2024 4:37 AM EDT [facility] MCH 26.9 26.0 - 32.0 pg LAB HEMATOLOGY METHOD 11/19/2024 4:37 AM EDT [facility] MCHC 31.8 30.7 - 35.5 g/dL LAB HEMATOLOGY METHOD 11/19/2024 4:37 AM EDT [facility] RDW 16.1(H) 11.5 - 14.5 % LAB HEMATOLOGY METHOD 11/19/2024 4:37 AM EDT [facility] MPV 10.1 8.8 - 12.5 fL LAB HEMATOLOGY METHOD 11/19/2024 4:37 AM EDT [facility] nRBC 0.0 <=0.0 per 100 WBCs LAB HEMATOLOGY METHOD 11/19/2024 4:37 AM EDT [facility] Blood Venous blood specimen / Unknown Venipuncture / Unknown 11/19/2024 4:11 AM EDT 11/19/2024 4:17 AM EDT us Vinicius Love MD LAB BLOOD ORDERABLES Final Re sult [facility] [address] [place] [address] * Surgical Pathology Exam (11/18/2024 3:57 PM EDT) Case Report Surgical Pathology Case: [id number] Authorizing Provider: Franko Nava MD Collected: 11/18/2024 0357 Ordering Location: [facility] Emergency Department Received: 11/18/2024 1620 Pathologist: Geovanny Gomes DO Specimen: Liver 5 5:03 PM EDT [facility] Final Diagnosis LIVER, BIOPSY: - POSITIVE FOR METASTATIC CARCINOMA (SEE COMMENT). 5 5:03 PM EDT [facility] at 1703 EDT Comment The [...] grade endometrioid adenocarcinoma. 5 5:03 PM EDT [facility] Clinical Information mets to the liver 5 5:03 PM EDT [facility] Special and Immunohistochemical Stains IHC: A1-2 CK7: Positive in tumor cells. A1-3 PAX8: Positive in tumor cells. A1-4 ER Non-Quantitative: Positive in tumor cells. All controls show appropriate reactivity. All immunohistochemist ry, in situ hybridization, and histochemical tests were developed by and are performed at the [facility], [address] [place] [address]. All tests reported here, except those addressing [...] negativity on decalcified specimens. 5:03 PM EDT [facility] Gross Description A. LIVER Received in formalin labeled l iver , are multiple red-rosales soft tissue cores measuring from 0.3 cm to 1.5 cm in length and up to 0.1 cm in diameter. Entirely submitted in cassette A1. Cold Time: 0 Ro Mcallister 5:03 PM EDT [facility] Intradepartmental Consultation with Agreement Dr. Fuentes 5:03 PM EDT [facility] Note: A resident was involved in the service. I attest I examined the relevant preparations for the specimens and confirmed the diagnosis or interpretation. 5:03 PM EDT [facility] Tissue Liver structure / Unknown Non-blood Collection / Unknown 11/18/2024 3:57 PM EDT 11/18/2024 4:20 PM EDT us Franko Nava MD LAB PATHOLOGY ORDERABLES Fin al Result [facility] [address] [place] [address] * US Guided Needle Biopsy Liver (11/18/2024 [...] concern for intratumoral hemorrhage. Patient presents to [facility] for bland embolization of tumor. Additionally, rebiopsy of liver mass is planned due to possible progression. TECHNIQUE: Bet Taker: Franko Nava MD Secondary Fighting Vehicle Infantryman: Luis Miguel Estes M.D. Rad Dose: [phone] [...] PACS. After standard exchanges, a 0.035 inch [employer] wire was advanced. Access was secured using a 5 F vascular sheath. Using a 5 Russian contra 2 catheter, the celiac axis was [...] concern for intratumoral hemorrhage. Patient presents to [facility] embol[facility] of tumor. Additionally, rebiopsy of liver mass isplanned due to possible progression. TECHNIQUE: Bet Taker: Franko Nava MD Secondary [employer] Infantryman: Luis Miguel Estes M.D. Rad Dose: [phone] [...] 5 F vascular sheath. Using a 5 Russian contra 2catheter, the celiac axis was catheterized. [...] 11/20/2024 12:24 PM us Franko Nava MD [facility] PROCEDURES Final Resu lt * IR Embolization [...] concern for intratumoral hemorrhage. Patient presents to [facility] for bland embolization of tumor. Additionally, rebiopsy of liver mass is planned due to possible progression. TECHNIQUE: Bet Taker: Franko Nava MD Secondary Fighting Vehicle Infantryman: Luis Miguel Estes M.D. Rad Dose: [phone] [...] 5 F vascular sheath. Using a 5 Russian contra 2 catheter, the celiac axis was [...] concern for intratumoral hemorrhage. Patient presents to [facility] embolization of tumor. Additionally, rebiopsy of liver mass isplanned due to possible progression. TECHNIQUE: Bet Taker: Franko Nava MD Secondary Fighting Vehicle Infantryman: Luis Miguel Estes M.D. Rad Dose: [phone] [...] 5 F vascular sheath. Using a 5 Russian contra 2catheter, the celiac axis was catheterized. [...] 2:55 PM EDT) Case Report Cytology Case: [id number] Authorizing Provider: Franko Nava MD Collected: 11/18/2024 1455 Ordering Location: [facility] Emergency Department Received: 11/18/2024 1520 Specimen: Liver, LIVER, CT GUIDED CORE BIOPSY 3:41 PM EDT [facility] Final Diagnosis A. LIVER, CT GUIDED CORE BIOPSY: - POSITIVE FOR MALIGNANCY, METASTATIC CARCINOMA CONSISTENT WITH PREVIOUSLY DIAGNOSED ENDOMETRIAL CARCINOMA, SEE COMMENT 3:41 PM EDT [facility] at 1541 EDT Comment History of metastatic [...] not identical to the previous surgical specimen ([id number]), the staining pattern noted below is identical to the previous tumor. 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 Material is present in the cell block for ancillary testing as clinically indicated. 3:41 PM EDT [facility] Special and Immunohistochemical Stains IHC: A1-1 CK-AE1/AE3 Positive A1-2 PAX8 Positive A1-3 ER Non-Quantitative Positive, moderate intensity in the majority of the cells A1-4 AR Non-Quantitative Rare positive cells, weak intensity A1-5 Androgen Receptor Positive, variable All controls show appropriate reactivity. All immunohistochemis try, in situ hybridization, and histochemical tests were developed by and are performed at the [facility], [address] [place] [address]. All tests reported here, except those addressing [...] on decalcified specimens. 5 3:41 PM EDT [facility] Intradepartmental Consultation with Agreement Dr. Fuentes 5 3:41 PM EDT [facility] Immediate Evaluation Core biopsy performed by: Dr. Nava Number of sticks: 5 This service has been rendered in part by a resident. A pathologist has personally reviewed the slides/tissue and has rendered and is responsible for diagnosis for the diagnosis that appears on the report. 5 3:41 PM EDT [facility] Clinical History metastesis to liver 5 3:41 PM EDT [facility] Procedure Type US 5 3:41 PM EDT [facility] Size/Description of Lesion liver tumor 5 3:41 PM EDT [facility] Cancer History Yes 5 3:41 PM EDT [facility] Gross Description A. LIVER, CT [...] fixation. Cold Time: 13m 3:41 PM EDT [facility] Note: A resident was involved in the service. I attest I examined the relevant preparations for the specimens and confirmed the diagnosis or interpretation. 3:41 PM EDT [facility] Clinical Information No Dx found. 3:41 PM EDT [facility] Fine Needle Aspirate Liver structure / Unknown Non-blood Collection / Unknown 11/18/2024 2:55 PM EDT 11/18/2024 3:20 PM EDT Franko Nava MD LAB CYTOLOGY ORDERABLES Sonali l Result Performing Organization Address City/[facility]/ZIP Co de Phone Number [facility] [address] [place] [address] * Transfuse RBC (11/18/2024 1:00 PM EDT) Vinicius Love MD BLOOD TRANSFUSION ORDERABLES Final Result * Transfuse RBC: 1 Units (11/18/2024 1:00 PM EDT) Vinicius Love MD BLOOD TRANSFUSION ORDERABLES Final Result * Type and screen (11/18/2024 9:33 AM EDT) [facility] ABO/Rh O Positive 11/18/2024 8:48 AM EDT BLOOD BANK Antibody Screen Negative 11/18/2024 8:48 AM EDT BLOOD BANK Specimen Expiration 11/21/2024 23:59 11/18/2024 8:48 AM EDT BLOOD BANK Blood Venous blood specimen / Unknown Venipuncture / Unknown 11/18/2024 9:33 AM EDT 11/18/2024 9:41 AM EDT us Vinicius Love MD LAB BLOOD BANK TEST ORDERABLE S Final Result Performing Organization Address [facility] Co de Phone Number BLOOD BANK [address] [place] [address], * Prepare Leukocyte Reduced RBC: 1 Units (11/18/2024 8:49 AM EDT) Product Code [id number] BLOO D BANK Dispense Status Transfused BLOOD BANK Blood Expiration Date [id number] BLOOD BANK Unit Number [id number] B LOOD BANK Product Blood Type 5100 BLOOD BANK Blood Type O+ BLOOD BANK Crossmatch Compatible BLOOD BANK Other Vinicius Love MD BLOOD BANK PRODUCT ORDERABLES Final Result BLOOD BANK [address] [place] [address], * PERIPHERAL IV (SMARTFORM LINK) (11/18/2024 7:57 [...] Hematocrit, Blood (11/18/2024 5:54 AM EDT) Pathologist [facility] HGB 6.9(L) 11.2 - 15.7 g/dL LAB HEMATOLOGY METHOD 11/18/2024 6:06 AM EDT [facility] HCT 21.3(L) 34.0 - 45.0 % LAB HEMATOLOGY METHOD 11/18/2024 6:06 AM EDT [facility] Blood Venous blood specimen / Unknown Venipuncture / Unknown 11/18/2024 5:54 AM EDT 11/18/2024 6:04 AM EDT Vinicius Love MD LAB BLOOD ORDERABLES Final Re sult Performing Organization Address [facility] Co de Phone Number [facility] [address] [place] [address] * (ABNORMAL) Magnesium (11/18/2024 4:36 AM EDT) Magnesium, Plasma 1.6(L) 1.9 - 2.4 mg/dL 11/18/2024 5:20 AM EDT [facility] Blood Venous blood specimen / Unknown Venipuncture / Unknown 11/18/2024 4:36 AM EDT 11/18/2024 4:48 AM EDT us Vinicius Love MD LAB BLOOD ORDERABLES Final Re sult Performing Organization Address [facility] Co de Phone Number [facility] [address] [place] [address] * IONIZED CALCIUM, SERUM (11/18/2024 4:36 AM EDT) Ionized Calcium, Serum 4.6 4.6 - 5.3 mg/dL LAB HEMATOLOGY METHOD 11/18/2024 5:29 AM EDT [facility] Blood Venous blood specimen / Unknown Venipuncture / Unknown 11/18/2024 4:36 AM EDT 11/18/2024 4:48 AM EDT us Vinicius Love MD LAB BLOOD ORDERABLES Final Re sult Performing Organization Address City/[facility]/ZIP Co de Phone Number [facility] [address] [place] [address] * (ABNORMAL) Comprehensive metabolic panel (11/18/2024 4:36 AM EDT) Glucose, Plasma 91 74 - 99 mg/dL 11/18/2024 5:20 AM EDT [facility] BUN, Plasma 10 7 - 21 mg/dL 11/18/2024 5:20 AM EDT [facility] Creatinine, Plasma 0.90 0.60 - 1.10 mg/dL 11/18/2024 5:20 AM EDT [facility] BUN/Creatinine Ratio 11 11/18/2024 5:20 AM EDT [facility] Sodium, Plasma 140 136 - 145 mmol/L 11/18/2024 5:20 AM EDT [facility] Potassium, Plasma 3.6 3.6 - 4.9 mmol/L 11/18/2024 5:20 AM EDT [facility] Chloride, Plasma 105 97 - 107 mmol/L 11/18/2024 5:20 AM EDT [facility] CO2, Plasma 22 22 - 29 mmol/L 11/18/2024 5:20 AM EDT [facility] Anion Gap 13 6 - 16 mmol/L 11/18/2024 5:20 AM EDT [facility] Total Calcium, Plasma 7.9(L) 8.9 - 10.2 mg/dL 11/18/2024 5:20 AM EDT [facility] Total Protein 5.8(L) 6.3 - 7.9 g/dL 11/18/2024 5:20 AM EDT [facility] Albumin, Plasma 2.6(L) 3.5 - 5.2 g/dL 11/18/2024 5:20 AM EDT [facility] AST, Plasma 23 10 - 35 U/L 11/18/2024 5:20 AM EDT [facility] ALT, Plasma 12 10 - 35 U/L 11/18/2024 5:20 AM EDT [facility] Alkaline Phosphatase, Plasma 263(H) 35 - 104 U/L 11/18/2024 5:20 AM EDT [facility] Total Bilirubin, Plasma 0.5 0.2 - 1.1 mg/dL 11/18/2024 5:20 AM EDT [facility] eGFRcr 80.0 mL/min/1.7 3m*2 11/18/2024 5:20 AM EDT [facility] Comment:Reported eGFRcr in m L/min/1.73m2 is based the CKD-EPI 2020 equation that does not use a race coefficient. Blood Venous blood specimen / Unknown Venipuncture / Unknown 11/18/2024 4:36 AM EDT 11/18/2024 4:48 AM EDT us Vinicius Love MD LAB BLOOD ORDERABLES Final Re sult [facility] [address] [place] [address] * (ABNORMAL) CBC W/O Differential (11/18/2024 4:36 AM EDT) WBC Count 9.43 3.70 - 10.30 10*3/uL LAB HEMATOLOGY METHOD 11/18/2024 4:51 AM EDT [facility] RBC Count 2.39(L) 3.90 - 5.20 10*6/uL LAB HEMATOLOGY METHOD 11/18/2024 4:51 AM EDT [facility] HGB 6.4(LL) 11.2 - 15.7 g/dL LAB HEMATOLOGY METHOD 11/18/2024 4:51 AM EDT [facility] HCT 19.8(L) 34.0 - 45.0 % LAB HEMATOLOGY METHOD 11/18/2024 4:51 AM EDT [facility] Platelet Count 220 155 - 369 10*3/uL LAB HEMATOLOGY METHOD 11/18/2024 4:51 AM EDT [facility] MCV 83 79 - 98 fL LAB HEMATOLOGY METHOD 11/18/2024 4:51 AM EDT [facility] MCH 26.8 26.0 - 32.0 pg LAB HEMATOLOGY METHOD 11/18/2024 4:51 AM EDT [facility] MCHC 32.3 30.7 - 35.5 g/dL LAB HEMATOLOGY METHOD 11/18/2024 4:51 AM EDT [facility] RDW 16.7(H) 11.5 - 14.5 % LAB HEMATOLOGY METHOD 11/18/2024 4:51 AM EDT [facility] MPV 9.3 8.8 - 12.5 fL LAB HEMATOLOGY METHOD 11/18/2024 4:51 AM EDT [facility] nRBC 0.0 <=0.0 per 100 WBCs LAB HEMATOLOGY METHOD 11/18/2024 4:51 AM EDT [facility] Blood Venous blood specimen / Unknown Venipuncture / Unknown 11/18/2024 4:36 AM EDT 11/18/2024 4:42 AM EDT us Vinicius Love MD LAB BLOOD ORDERABLES Final Re sult [facility] [address] [place] [address] * US Abdomen RUQ (11/17/2024 2:00 PM [...] Orion Garcia MD on 11/17/2024 2:59 PM aKreem Guidry MD IMG US PROCEDURES Final Result * APTT (11/17/2024 1:25 PM EDT) aPTT 26 25 - 35 sec 11/17/2024 1:44 PM EDT [facility] Blood Venous blood specimen / Unknown Venipuncture / Unknown 11/17/2024 1:25 PM EDT 11/17/2024 1:27 PM EDT us Kareem Guidry MD LAB BLOOD ORDERABLES Fin al Result [facility] [address] [place] [address] * (ABNORMAL) PT-INR (11/17/2024 1:25 PM EDT) Pathologist [facility] Prothrombin Time 15.4(H) 12.0 - 14.3 sec 11/17/2024 1:43 PM EDT [facility] INR 1.2(H) 0.9 - 1.1 11/17/2024 1:43 PM EDT [facility] Blood Venous blood specimen / Unknown Venipuncture / Unknown 11/17/2024 1:25 PM EDT 11/17/2024 1:27 PM EDT Narrative [facility] - 11/17/2024 1:43 PM EDT OPTIMAL INR RANGES FOR PATIENT ON ORAL ANTICOAGULANT THERAPY Prevention of venous thromboembolism INR 2.0 to 3.0 In patients with heart disease: Atrial fibrillation INR 2.0 to 3.0 Valvular heart disease INR 2.0 to 3.0 Tissue heart valves INR 2.0 to 3.0 Mechanical prosthetic valves INR 2.5 to 3.5 Prevention of recurrent AK INR 2.5 to 3.5 Kareem Guidry MD LAB BLOOD [place] [address] * (ABNORMAL) Lipase (11/17/2024 1:25 PM EDT) Pathologist [facility] Lipase, Plasma 14(L) 19 - 63 U/L 11/17/2024 1:50 PM EDT [facility] Blood Venous blood specimen / Unknown Venipuncture / Unknown 11/17/2024 1:25 PM EDT 11/17/2024 1:27 PM EDT Kareem Guidry MD LAB BLOOD ORDERABLES Fin al Result [facility] [address] [place] [address] * (ABNORMAL) CMP (11/17/2024 1:25 PM EDT) Pathologist [facility] Glucose, Plasma 89 74 - 99 mg/dL 11/17/2024 1:50 PM EDT [facility] BUN, Plasma 10 7 - 21 mg/dL 11/17/2024 1:50 PM EDT [facility] Creatinine, Plasma 0.88 0.60 - 1.10 mg/dL 11/17/2024 1:50 PM EDT [facility] BUN/Creatinine Ratio 11 11/17/2024 1:50 PM EDT [facility] Sodium, Plasma 137 136 - 145 mmol/L 11/17/2024 1:50 PM EDT [facility] Potassium, Plasma 3.6 3.6 - 4.9 mmol/L 11/17/2024 1:50 PM EDT [facility] Chloride, Plasma 102 97 - 107 mmol/L 11/17/2024 1:50 PM EDT [facility] CO2, Plasma 20(L) 22 - 29 mmol/L 11/17/2024 1:50 PM EDT [facility] Anion Gap 15 6 - 16 mmol/L 11/17/2024 1:50 PM EDT [facility] Total Calcium, Plasma 9.0 8.9 - 10.2 mg/dL 11/17/2024 1:50 PM EDT [facility] Total Protein 7.5 6.3 - 7.9 g/dL 11/17/2024 1:50 PM EDT [facility] Albumin, Plasma 3.0(L) 3.5 - 5.2 g/dL 11/17/2024 1:50 PM EDT [facility] AST, Plasma 32 10 - 35 U/L 11/17/2024 1:50 PM EDT [facility] ALT, Plasma 18 10 - 35 U/L 11/17/2024 1:50 PM EDT [facility] Alkaline Phosphatase, Plasma 378(H) 35 - 104 U/L 11/17/2024 1:50 PM EDT [facility] Total Bilirubin, Plasma 0.7 0.2 - 1.1 mg/dL 11/17/2024 1:50 PM EDT [facility] eGFRcr 82.2 mL/min/1.7 3m*2 11/17/2024 1:50 PM EDT [facility] Comment:Reported eGFRcr in m L/min/1.73m2 is based the CKD-EPI 2020 equation that does not use a race coefficient. Blood Venous blood specimen / Unknown Venipuncture / Unknown 11/17/2024 1:25 PM EDT 11/17/2024 1:27 PM EDT us Kareem Guidry MD LAB BLOOD ORDERABLES Fin al Result [facility] [address] [place] [address] * (ABNORMAL) CBC w/diff (11/17/2024 1:25 PM EDT) WBC Count 12.34(H) 3.70 - 10.30 10*3/uL LAB HEMATOLOGY METHOD 11/17/2024 1:30 PM EDT [facility] RBC Count 3.19(L) 3.90 - 5.20 10*6/uL LAB HEMATOLOGY METHOD 11/17/2024 1:30 PM EDT [facility] HGB 8.4(L) 11.2 - 15.7 g/dL LAB HEMATOLOGY METHOD 11/17/2024 1:30 PM EDT [facility] HCT 27.1(L) 34.0 - 45.0 % LAB HEMATOLOGY METHOD 11/17/2024 1:30 PM EDT [facility] Platelet Count 308 155 - 369 10*3/uL LAB HEMATOLOGY METHOD 11/17/2024 1:30 PM EDT [facility] MCV 85 79 - 98 fL LAB HEMATOLOGY METHOD 11/17/2024 1:30 PM EDT [facility] MCH 26.3 26.0 - 32.0 pg LAB HEMATOLOGY METHOD 11/17/2024 1:30 PM EDT [facility] MCHC 31.0 30.7 - 35.5 g/dL LAB HEMATOLOGY METHOD 11/17/2024 1:30 PM EDT [facility] RDW 16.7(H) 11.5 - 14.5 % LAB HEMATOLOGY METHOD 11/17/2024 1:30 PM EDT [facility] MPV 9.6 8.8 - 12.5 fL LAB HEMATOLOGY METHOD 11/17/2024 1:30 PM EDT [facility] nRBC 0.0 <=0.0 per 100 WBCs LAB HEMATOLOGY METHOD 11/17/2024 1:30 PM EDT [facility] Differential Type Automated LAB HEMATOLOGY METHOD 11/17/2024 1:30 PM EDT [facility] Neutrophils % 80 % LAB HEMATOLOGY METHOD 11/17/2024 1:30 PM EDT [facility] Lymphocytes % 11 % LAB HEMATOLOGY METHOD 11/17/2024 1:30 PM EDT [facility] Monocytes % 5 % LAB HEMATOLOGY METHOD 11/17/2024 1:30 PM EDT [facility] Eosinophils % 1 % LAB HEMATOLOGY METHOD 11/17/2024 1:30 PM EDT [facility] Basophils % 1 % LAB HEMATOLOGY METHOD 11/17/2024 1:30 PM EDT [facility] Immature Granulocytes % 2 % LAB HEMATOLOGY METHOD 11/17/2024 1:30 PM EDT [facility] Neutrophils Absolute 10.04(H) 1.60 - 6.10 10*3/uL LAB HEMATOLOGY METHOD 11/17/2024 1:30 PM EDT [facility] Lymphocytes Absolute 1.31 1.20 - 3.90 10*3/uL LAB HEMATOLOGY METHOD 11/17/2024 1:30 PM EDT [facility] Monocytes Absolute 0.62 0.30 - 0.90 10*3/uL LAB HEMATOLOGY METHOD 11/17/2024 1:30 PM EDT [facility] Eosinophils Absolute 0.08 0.00 - 0.50 10*3/uL LAB HEMATOLOGY METHOD 11/17/2024 1:30 PM EDT [facility] Basophils Absolute 0.06 0.00 - 0.10 10*3/uL LAB HEMATOLOGY METHOD 11/17/2024 1:30 PM EDT [facility] Immature Granulocytes Absolute 0.23(H) 0.00 - 0.06 10*3/uL LAB HEMATOLOGY METHOD 11/17/2024 1:30 PM EDT [facility] Blood Venous blood specimen / Unknown Venipuncture / Unknown 11/17/2024 1:25 PM EDT 11/17/2024 1:27 PM EDT [facility] - 11/17/2024 1:30 PM EDT Therapeutic decision making should be based on absolute values, rather than percentages. us Kareem Guidry MD LAB BLOOD ORDERABLES Trevor dixon Result [facility] [address] [place] [address] documented in this encounter Visit Diagnoses Diagnosis [...] 1215, Routine 1126 (Given - Provider: Ro Barber RN) calcium carbonate (Tums) chewable tablet 1,000 mg [...] Barber, INOCENCIA) 0849 (Given - Provider: Ailyn Armenta, INOCENCIA) ibuprofen tablet 600 mg 600 mg, Oral, Every 6 hours scheduled, First dose on Sun11/20/24 at 0000, Until Discontinued, Routine 2340 (Given - Provider: Genny Ellis RN) 0518 (Given - Provider: Genny Ellis, INOCENCIA)1126 (Given - Provider: Ro Barber, INOCENCIA)1846 (Given - Provider: Ro Barber, RN)2341 (Given - Provider: Genny Ellis, INOCENCIA) 0533 (Given - Provider: Genny Ellis, INOCENCIA) ketorolac (Toradol) injection 15 mg (COMPLETED) 15 [...] Genny Ellis RN)0849 (Given - Provider: Ailyn Armenta, INOCENCIA) methocarbamol (Robaxin) tablet 500 mg 500 mg, [...] Routine 0535 (Canceled Entry - Provider: Kareem Angelo, RN)1717 (Given - Provider: Socrates Lew, INOCENCIA) 0435 (Given - Provider: Genny Ellis, INOCENCIA)1655 (Given - Provider: Ro Barber, RN) 0436 (Given - Provider: Genny Ellis, INOCENCIA)1735 [...] moderate pain 1716 (Given - Provider: Socrates Lew, INOCENCIA) oxyCODONE (Roxicodone) immediate release tablet 5 mg [...] documented as of this encounter Care Teams Open Die Inspector Relationship Specialty Start Date End Date Pcp, [place] [address] PCP - General Family Medicine 06/16/23 documented as of this encounter
--- OUTSIDE RECORDS SUMMARY | 2024-12-04 09:00 | XMS_ITS | Encounter Summary ---
Author Organization [facility] Address [address] [place] [address] Care Team Providers Care Open Hearth Helper Name Role Phone Pcp, No Primary Care Provider Unavailabl e Reason for Referral * Imaging (Routine) - Pending Review Specialty Diagnoses / Procedures Referred By Contac t Referred To Contact Radiology Diagnoses Endometrial cancer Procedures CT Abdomen Pelvis w IV Contrast Karol Jane MD [address] [address] Phone: tel: fax: Referral ID Status Reason Start Date Expiration Date V isits Requested Visits Authorized [id number] Pending Review 12/04/2024 06/05/2026 1 1 * Imaging (Routine) - Pending Review Specialty Diagnoses / Procedures Referred By Contac t Referred To Contact Radiology Diagnoses Endometrial cancer Procedures CT Chest w IV Contrast Karol Jane MD [address] [address] Phone: tel: fax: Referral ID Status Reason Start Date Expiration Date V isits Requested Visits Authorized [id number] Pending Review 12/04/2024 06/05/2026 1 1 Reason for Visit * Reason Comments Consult Encounter Details Date Type Department Care Team (Late st Contact Info) Description 12/04/2024 10:00 AM EDT Office Visit [facility] [address] [place] [address] Karol Jane MD [address] [place] [address] Endometrial cancer (CMS/HCC) (Primary Dx) Social History [...] in the past 12 m [facility], were you homeless or living in a nursing home (including now)? No 11/18/2024 [facility] Utilities Answer Date Recorded In the [...] drink first t nicolas in the morning (EYE-SENIOR IOS DEVELOPER) to steady your nerves or to [...] staging information was found for the patient. Marketing Research Intern Cancer Treatment History: 1. Presented to ED [...] is recommended. 4. Final path reviewed at [facility], Dr. Garcia - As you know [...] an appointment scheduled with Dr. Veloz in [place] on 12/09. Would like to have her [...] detailed below. Additionally, she denies history of [place], DVT, stroke. Employer: No address on file. [...] an appointment scheduled with Dr. Veloz in [place] on 12/09. He will initiate therapy. - [...] documentation. Encounter time 60 min [facility] [address] [facility] [address] [facility] [address] Dept Loc: [phone] [1] Past Medical History: Diagnosis Date Disease [...] EST Appointment [facility] [address] [place] [address] 03/19/2025 1:45 PM EST Office Visit [facility] [address] [address] Karol Jane MD [address] [place] [address] Scheduled Orders Name Type Priority Associated Diagnoses [...] as of this encounter Care Teams Open Hearth Helper Relationship Specialty Start Date End Date Pcp, Saloni [address] [place] [address] PCP - General Family Medicine 06/16/23 documented as of this encounter
[2025-01-13 14:33] VITALS: BP 126/86; PULSE 103; RESP 18; TEMP 35.9; O2SAT 95; BMI 35.5
--- NOTE | 2025-01-13 14:41 | CT_ITS ---
PROCEDURE INFORMATION: Exam: CTA Chest With Contrast Exam date and time: 01/13/2025 3:54 PM Age: 44 years old Clinical indication: Shortness of breath; Additional info: SOB TECHNIQUE: Imaging protocol: Computed tomographic angiography of the chest with contrast. Exam focused on the arteries. 3D rendering (Not supervised by radiologist): MIP and/or 3D reconstructed images were created by the technologist. Radiation optimization: All CT scans at this facility use at least one of these dose optimization techniques: automated exposure control; mA and/or kV adjustment per patient size (includes targeted exams where dose is matched to clinical indication); or iterative reconstruction. Contrast material: ISOVUE 370; Contrast volume: 75 ml; Contrast route: INTRAVENOUS (IV); COMPARISON: CR XR CHEST PORTABLE 10/27/2024 9:24 PM FINDINGS: Pulmonary arteries: No evidence of pulmonary embolism. Aorta: No aortic aneurysm. Lungs: Near complete atelectasis of the right middle and lower lobes. No evidence of focal airspace infiltrate or congestive pulmonary edema. Few calcified pulmonary granulomata consistent with chronic sequelae of prior granulomatous disease, unchanged. No new suspicious or enlarging pulmonary nodules. Pleural spaces: Large right pleural effusion with compressive atelectasis in the right middle and lower lobes. No left pleural effusion. No pneumothorax. Heart: No cardiomegaly. No pericardial effusion. Lymph nodes: Calcified mediastinal lymph nodes consistent with chronic sequelae of prior granulomatous disease, unchanged. No pathologically enlarged lymph nodes by imaging criteria. Liver: Previously demonstrated large liver mass contains a focal area of gas that is new since the 10/27/2024 CT. No other significant interval change in the partially visualized upper abdomen. Bones/joints: No acute osseous abnormality. Soft tissues: Unremarkable. IMPRESSION: 1. No evidence of pulmonary embolism. 2. Large right pleural effusion with compressive atelectasis in the right middle and lower lobes. 3. Previously demonstrated large liver mass contains a focal area of gas that is new since the 10/27/2024 CT. In the absence of a recent procedural intervention that could introduced gas, findings may represent tumor necrosis. 4. Chronic ancillary findings detailed above are unchanged from prior exam.
--- NOTE | 2025-01-13 14:41 | HMH.EDGENADL ---
Discharge Plan Disposition Chief Complaint: Allergic Reaction Prescriptions Prescriptions: No Action pantoprazole 40 mg tablet,delayed release (DR/EC) 40 mg PO DAILY ondansetron 4 mg tablet,disintegrating 4 mg PO Q8H 30 Days Qty: 90 3RF acetaminophen [Tylenol Extra Strength] 500 mg tablet 500 mg PO Q6H PRN methocarbamol 500 mg tablet 500 mg PO 4XD prochlorperazine maleate [Compazine] 10 mg tablet 10 mg PO Q6H PRN (Reason: nausea and vomiting) Qty: 30 3RF ondansetron 8 mg tablet,disintegrating 8 mg PO .Q4-6 Qty: 30 3RF potassium chloride 10 mEq capsule, extended release 10 meq PO DAILY Qty: 30 5RF prochlorperazine maleate [Compazine] 10 mg tablet 10 mg PO Q6H PRN (Reason: nausea and vomiting) Qty: 30 3RF Referrals Follow up/Referrals: Benny Gonzalez DO [Primary Care Provider, Family Practice] - See instructions Print Language Print Language: Macedonian Discharge ED Provider: J Luis Torres General Adult HPI General Chief complaint: Allergic Reaction Stated complaint: allegic reaction to chemo Time Seen by Provider: 01/13/25 14:35 History of Present Illness HPI narrative: This patient is a 44-year-old female with past medical history of active uterine cancer with multiple metastases who presents to the emergency department after a negative reaction at the infusion clinic. The patient was receiving her second infusion of carboplatin when she developed hypotension, tachycardia, nausea, vomiting, poor oxygen saturation. The patient's is currently requiring 4 L nasal cannula, at baseline she does not use nasal cannula oxygen. She was treated with Compazine after nausea and vomiting began and symptoms have significantly improved, she still feels weak, ill. This was her second carboplatin infusion, first infusion was not accompanied by any negative reactions. Related Data Home Medications ?Medication ?Instructions ?Recorded ?Confirmed acetaminophen 500 mg tablet 500 mg PO Q6H PRN 11/25/24 01/13/25 (Tylenol Extra Strength) methocarbamol 500 mg tablet 500 mg PO 4XD 11/25/24 01/13/25 pantoprazole 40 mg tablet,delayed 40 mg PO DAILY 12/09/24 01/13/25 release Previous Rx's ?Medication ?Instructions ?Recorded potassium chloride 10 mEq 10 meq PO DAILY #30 caps 11/25/24 capsule,extended release ondansetron 4 mg disintegrating 4 mg PO Q8H 1 month #90 tabs 12/09/24 tablet prochlorperazine maleate 10 mg 10 mg PO Q6H PRN nausea and 12/23/24 tablet (Compazine) vomiting #30 tabs ondansetron 8 mg disintegrating 8 mg PO .Q4-6 #30 tabs 01/13/25 tablet prochlorperazine maleate 10 mg 10 mg PO Q6H PRN nausea and 01/13/25 tablet (Compazine) vomiting #30 tabs Allergies Allergy/AdvReac Type Severity Reaction Status Date / Time No Known Allergies Allergy Verified 01/13/25 09:20 [facility] Disclaimer: The information contained in this section may have been updated after the patient was seen, as this information can be updated by other users. 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 Liver mass Surgical History H/O hysterectomy with oophorectomy Social History Smoking Status: Current every day smoker alcohol intake: never current occupational status: employed Travel in the last 8 weeks?: None Have you lived/traveled outside [place] in past 30 days?: No Contact w/someone who lives/traveled outside [place] past 30 days?: No Exposure to someone with infectious disease in past 14 days?: No Do you have a fever (greater than 100.4 F or 38 C)?: No Have you tested positive for COVID-19?: No Exposed to someone with COVID-19 in past 14 days?: No Do you have a sore throat?: No Do you have a cough?: No Do you have any weakness?: No Do you have any diarrhea?: No Are you experiencing any unusual bleeding?: No Do you have any muscle aches/pain?: No Do you have any abdominal pain?: No Are you experiencing loss of taste or smell?: No Other Medical History Have you received the Flu Vaccine for this season: No Have you received the Pneumonia Vaccine: No ROS Obtained: Yes All systems reviewed & no additional complaints except as documented Physical Exam General General appearance: other (Ill-appearing) Comment: Ill-appearing Head Head exam: atraumatic and normocephalic Eye Eye exam: Present normal appearance, PERRL and EOMI ENT ENT exam: Present normal exam and normal external ear exam Neck Neck exam: Present normal inspection, full ROM and trachea midline Chest Chest inspection: Present normal inspection and symmetric chest wall rise; Absent tenderness Respiratory Respiratory exam: Absent respiratory distress Cardiovascular Cardiovascular exam: Present regular rate, normal rhythm and other (appears warm and well perfused) Abdominal Exam Abdominal exam: Absent distention or tenderness Extremities Exam Extremities exam: Present normal inspection and full ROM Neurological Exam Neurological exam: Present alert and oriented X3 Psychiatric Psychiatric exam: Present normal affect Skin Skin exam: Present pallor Medical Decision Making Medical Records Medical records reviewed: Yes I reviewed the patient's medical records. Screening: Per USPSTF and CDC recommendations, given the prevalence of disease in our region, it is our hospital?s policy to screen for HIV and viral Hepatitis for all patients aged 18 and over and those with ongoing risk factors. Paul Inquiry Pt receiving controlled substance: No Paul was queried for this patient: No Vital Signs: 01/13/25 14:33 01/13/25 14:45 01/13/25 16:00 Temperature 96.6 F L Temperature Source Temporal Artery Scan Pulse Rate 105 H 99 H Pulse Rate [Left Radial] 103 H Respiratory Rate 18 23 Blood Pressure 126/83 126/83 Blood Pressure [Right Arm] 126/86 Blood Pressure Mean [Right Arm] 99 02 Sat by Pulse Oximetry 95 94 L 95 Oxygen Delivery Method Nasal Cannula Oxygen Flow Rate (LPM) 4 01/13/25 16:07 01/13/25 16:31 Temperature Temperature Source Pulse Rate 87 79 Pulse Rate [Left Radial] Respiratory Rate Blood Pressure 118/54 L 118/54 L Blood Pressure [Right Arm] Blood Pressure Mean [Right Arm] 02 Sat by Pulse Oximetry 96 97 Oxygen Delivery Method Oxygen Flow Rate (LPM) Lab Data Lab results reviewed: Yes I reviewed the patient's lab results. Lab Results 01/13/25 15:05: Urine Color Yellow, Urine Appearance Clear, Urine pH 6.0, Ur Specific Stanley 1.010, Urine Protein 2+ A, Urine Glucose (UA) Negative, Urine Ketones Negative, Urine Blood 3+ A, Urine Nitrate Negative, Urine Bilirubin Negative, Urine Urobilinogen 0.2, Ur Leukocyte Esterase Trace, Urine RBC 20-50, Urine WBC 20-50, Ur Squamous Epith Cells 50-100, Urine Bacteria 4+, SARS-CoV-2 (PCR) Not detected, Influenza A Untype (PCR) Not detected, Influenza Type B (PCR) Not detected 01/13/25 15:40: WBC 7.5 D, RBC 4.17 L, Hct 36.0 L, MCV 86.3, MCH 26.9 L, MCHC 31.1 L, RDW 16.6, Plt Count 206, MPV 9.1, Neut % (Auto) 84.1 H, Lymph % (Auto) 9.5 L, [place] % (Auto) 0.9 L, Eos % (Auto) 0.1, Baso % (Auto) 0.3, Neut # (Auto) 6.3, Lymph # (Auto) 0.7, [place] # (Auto) 0.1, Eos # (Auto) 0.0, Baso # (Auto) 0.0, PT 11.9, INR 1.08, VBG pH 7.29 L, VBG pCO2 43.0, VBG pO2 43.0 H, VBG HCO3 20.0 L, VBG Total CO2 21.3 L, VBG O2 Saturation 72.0 H, VBG Base Excess -6.6 L, VBG Lactic Acid 4.1 H, Sodium 135 L, Potassium 3.8, Chloride 104, Carbon Dioxide 18 L, Anion Gap 16.8 H, BUN 8, Creatinine 0.80, Estimated Creat Clear 143, Estimated GFR 77, Est GFR ( Amer) 93, Glucose 202 H D, Calcium 8.9, Total Bilirubin 1.7 H, AST 39 H D, ALT 28 D, Alkaline Phosphatase 194 H, Troponin I < 0.01, C-Reactive Protein 9.3 H, NT-Pro-B Natriuret Pep 113, Total Protein 8.3 H, Albumin 4.2 D, Globulin 4.1 H, Albumin/Globulin Ratio 1.0 L 01/13/25 15:40 01/13/25 15:40 Orders (Tests/Meds): ED MEDICATIONS Generic Name Dose Route Start Last Admin Trade Name Freq PRN Reason Stop Dose Admin Sodium Chloride 10 ml 01/13/25 15:58 01/13/25 15:59 Sodium Chloride 0.9% 10ml Syr (Rad Only) IV 02/12/25 15:57 10 ml NEEDED PRN Administration Maintain IV Site Discontinued Medications Generic Name Dose Route Start Last Admin Trade Name Sandi PRN Reason Stop Dose Admin Lactated Ringer's 1,000 mls @ 999 mls/hr 01/13/25 14:45 01/13/25 16:10 Lactated Ringer's 1000 Ml Bag IV 01/13/25 15:45 999 mls/hr .Q1H1M ONE Administration Iopamidol 70 ml 01/13/25 15:58 01/13/25 15:59 Iopamidol-370 (76%);100ml Bottle IV 01/13/25 15:59 70 ml ONCE ONE Administration Sodium Chloride 50 ml 01/13/25 15:58 01/13/25 15:59 0.9 % Sodium Chloride 50 Ml Vial IV 01/13/25 15:59 50 ml ONCE ONE Administration ORDERS Category Date Time Status CTA Chest [CT angio chest PE protocol] Stat Cat Scan 01/13/25 14:41 Taken BNP [NT Pro Brain Natriuretic Pep.] Stat Lab 01/13/25 15:40 Completed CBC w/Auto Diff [Complete Blood Count Auto Diff] Stat Lab 01/13/25 15:40 Results CMP [Comprehensive Metabolic Panel] Stat Lab 01/13/25 15:40 Completed CRP [C-Reactive Protein] Stat Lab 01/13/25 15:40 Completed PT INR [Prothrombin Time INR] Stat Lab 01/13/25 15:40 Completed Rapid PCR Covid and Flu A/B Stat Lab 01/13/25 15:05 Completed Troponin I Q3H Lab 01/13/25 15:40 Completed Troponin I Q3H Lab 01/13/25 17:45 Ordered UA [Urinalysis and Microscopic] Stat Lab 01/13/25 15:05 Completed Blood Culture Stat Micro 01/13/25 14:42 Received Urine Culture Stat Micro 01/13/25 15:05 Received VBG [Venous Blood Gas] Stat RT 01/13/25 15:40 Completed Medical Decision Narrative: MDM In summary, this 44-year-old female presents to the emergency department today with nausea, vomiting, shortness of breath. Initial evaluation the patient uncomfortable, hemodynamically stable. Differential diagnosis includes but is not limited to ACS, IL, sepsis, pulmonary, infusion reaction. Based on these concerns, I ordered comprehensive laboratory and imaging workup. ECG personally interpreted by me demonstrates tachycardia. Patient received lactated Ringer's, Compazine for treatment. Upon evaluation to the emergency department I assessed this patient, she was hemodynamically stable but uncomfortable. I ordered a comprehensive laboratory and imaging workup but unfortunately before the majority of these could result, the care of this patient was signed out to the oncoming attending. Critical Care Critical Care Time Critical Care Time: No
[2025-01-13 14:45] VITALS: BP 126/83; PULSE 105; RESP 23; O2SAT 94
[2025-01-13 15:13] LABS: Coronavirus 19, PCR Not Detected (NotDetected); Influenza A, PCR Not Detected (NotDetected); Influenza B, PCR Not Detected (NotDetected); Microscopic, Urine URINE MICROSCOPIC (MICROSCOPIC)
[2025-01-13 15:16] LABS: Color,Urine YELLOW (Yellow); Glucose,Urine (UA) Negative (Negative); Ketones,Urine Negative (Negative); Leukocyte Esterase,Urine TRACE (Negative); PH,Urine 6.0 (5.0-8.5); Protein,Urine 2+ (Negative); Specific Gravity, Urine 1.010 (1.005-1.030); Urobilinogen,Urine 0.2 EU/dl (0.2)
--- OUTSIDE RECORDS SUMMARY | 2025-01-13 15:16 | XMS_ITS | Clinical Summary ---
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 Assessment & Plan (11/10/2024 1:52 PM EDT): Industrial Arts Teacher Onc consultation Metastasis to liver 11/10/2024 Metastasis [...] EDT Office Visit [facility] Gynecology [address] [facility] [address] [place] [address] Karol Jane MD Endometrial cancer (CMS/HCC) (Primary Dx) 12/04/2024 Travel 11/29/2024 Travel 11/19/2024 Travel 11/18/2024 Travel 11/17/2024 1:26 PM EDT - 11/21/2024 10:43 AM EDT Hospital Encounter [facility] Inpatient [facility] [address] [place] [address] Elisabeth Hernandez MD Miller, Rachel W, MD RUQ abdominal pain (Primary Dx); Endometrial cancer (CMS/HCC); Metastasis to liver (CMS/HCC); 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) Discharge Disposition: Home or Self Care 11/17/2024 Travel 11/14/2024 Travel 11/11/2024 Travel 11/09/2024 Travel 11/08/2024 11:13 AM EDT - 11/14/2024 8:50 PM EDT Hospital Encounter [facility] Inpatient [address] [place] [address] Blaire Fuchs MD Houck, Jessica L, DO Tucker, Brian K, Morelia Irene MD Dietrich, Charles S, MD Miller, Rachel W, MD Metastasis to liver (CMS/HCC) (Primary Dx); Calculus of gallbladder without cholecystitis without obstruction Discharge Disposition: Home or Self Care 11/08/2024 Orders Only External Location [address] [place] [address] Provider, External 11/08/2024 Orders Only External Location [address] [place] [address] Provider, External 11/08/2024 Travel from Last 3 [...] any time in the past 12 m [facility], were you homeless or living in a retirement (including now)? No 11/18/2024 [facility] Utilities Answer Date Recorded In [...] drink first t nicolas in the morning (EYE-SOLAR SALES ADVISOR) to steady your nerves or to get [...] EST Appointment [facility] Radiology [address] [place] [address] 03/19/2025 1:45 PM EST Office Visit [facility] Gynecology [address] [address] Karol Jane MD [address] Jar[address] Sara [address] [place] [address] Health Maintenance Due Date Last Done Comments [facility]-/Child/Adol SDOH Screenings 1978 CTR-YSTAW-45 Vaccine (#1) 1983 [facility]-DTaP,Tdap,and Td Vaccine s [...] this topic Medical Devices Implanted Type Area Optical Manufacturing Technician Device Identifier Shelf Expiration Date Model / Serial / Lot Vip Vascular Closure Device 6 Fr - [id number] Implanted:Qty: 1 on 11/18/2024 [id number] 07/29/2025 [id number] / / [id number] Procedures Procedure Name Priority Date/Time Associated Diagnosis [...] BIOPSY Routine 11/18/2024 2:55 PM EDT CRISTOBAL FL TUMOR SEEK HYBRID + IHCS AND OTHER [...] LAB HEMATOLOGY METHOD 11/21/2024 3:53 AM EDT [facility] Blood Venous blood specimen / Unknown Venipuncture / Unknown 11/21/2024 3:19 AM EDT 11/21/2024 3:27 AM EDT Karol Jane MD LAB BLOOD ORDERABLES Final Re sult [facility] [address] [place] [address] * (ABNORMAL) CBC W/O Differential (11/21/2024 3:19 AM EDT) Only the most recent of10 resultswithin the time period is included. WBC Count 12.55(H) 3.70 - 10.30 10*3/uL LAB HEMATOLOGY METHOD 11/21/2024 3:35 AM EDT [facility] RBC Count 2.70(L) 3.90 - 5.20 10*6/uL LAB HEMATOLOGY METHOD 11/21/2024 3:35 AM EDT [facility] HGB 7.3(L) 11.2 - 15.7 g/dL LAB HEMATOLOGY METHOD 11/21/2024 3:35 AM EDT [facility] HCT 22.1(L) 34.0 - 45.0 % LAB HEMATOLOGY METHOD 11/21/2024 3:35 AM EDT [facility] Platelet Count 236 155 - 369 10*3/uL LAB HEMATOLOGY METHOD 11/21/2024 3:35 AM EDT [facility] MCV 82 79 - 98 fL LAB HEMATOLOGY METHOD 11/21/2024 3:35 AM EDT [facility] MCH 27.0 26.0 - 32.0 pg LAB HEMATOLOGY METHOD 11/21/2024 3:35 AM EDT [facility] MCHC 33.0 30.7 - 35.5 g/dL LAB HEMATOLOGY METHOD 11/21/2024 3:35 AM EDT [facility] RDW 16.0(H) 11.5 - 14.5 % LAB HEMATOLOGY METHOD 11/21/2024 3:35 AM EDT [facility] MPV 9.7 8.8 - 12.5 fL LAB HEMATOLOGY METHOD 11/21/2024 3:35 AM EDT [facility] nRBC 0.0 <=0.0 per 100 WBCs LAB HEMATOLOGY METHOD 11/21/2024 3:35 AM EDT [facility] Blood Venous blood specimen / Unknown Venipuncture / Unknown 11/21/2024 3:19 AM EDT 11/21/2024 3:28 AM EDT Karol Jane MD LAB BLOOD ORDERABLES Final Re sult Performing Organization Address City/[facility] Co de Phone Number [facility] [address] [place] [address] * Phosphorus, Plasma (11/21/2024 3:19 AM EDT) Only the most recent of7 resultswithin the time period is included. Phosphorus, Plasma 3.1 2.5 - 4.5 mg/dL 11/21/2024 5:27 AM EDT [facility] Blood Venous blood specimen / Unknown Venipuncture / Unknown 11/21/2024 3:19 AM EDT 11/21/2024 3:27 AM EDT us Karol Jane MD LAB BLOOD ORDERABLES Final Re sult Performing Organization Address City/[facility] Co de Phone Number [facility] [address] [place] [address] * (ABNORMAL) Magnesium (11/21/2024 3:19 AM EDT) Only the most recent of10 resultswithin the time period is included. Magnesium, Plasma 1.6(L) 1.9 - 2.4 mg/dL 11/21/2024 3:58 AM EDT [facility] Blood Venous blood specimen / Unknown Venipuncture / Unknown 11/21/2024 3:19 AM EDT 11/21/2024 3:27 AM EDT us Karol Jane MD LAB BLOOD ORDERABLES Final Re sult [facility] [address] [place] [address] * (ABNORMAL) Comprehensive metabolic panel (11/21/2024 3:19 AM EDT) Only the most recent of9 resultswithin the time period is included. Glucose, Plasma 116(H) 74 - 99 mg/dL 11/21/2024 3:58 AM EDT [facility] BUN, Plasma 11 7 - 21 mg/dL 11/21/2024 3:58 AM EDT [facility] Creatinine, Plasma 0.77 0.60 - 1.10 mg/dL 11/21/2024 3:58 AM EDT [facility] BUN/Creatinine Ratio 14 11/21/2024 3:58 AM EDT [facility] Sodium, Plasma 137 136 - 145 mmol/L 11/21/2024 3:58 AM EDT [facility] Potassium, Plasma 3.4(L) 3.6 - 4.9 mmol/L 11/21/2024 3:58 AM EDT [facility] Chloride, Plasma 103 97 - 107 mmol/L 11/21/2024 3:58 AM EDT [facility] CO2, Plasma 21(L) 22 - 29 mmol/L 11/21/2024 3:58 AM EDT [facility] Anion Gap 13 6 - 16 mmol/L 11/21/2024 3:58 AM EDT [facility] Total Calcium, Plasma 7.9(L) 8.9 - 10.2 mg/dL 11/21/2024 3:58 AM EDT [facility] Total Protein 5.7(L) 6.3 - 7.9 g/dL 11/21/2024 3:58 AM EDT [facility] Albumin, Plasma 2.4(L) 3.5 - 5.2 g/dL 11/21/2024 3:58 AM EDT [facility] AST, Plasma 188(H) 10 - 35 U/L 11/21/2024 3:58 AM EDT [facility] ALT, Plasma 167(H) 10 - 35 U/L 11/21/2024 3:58 AM EDT [facility] Alkaline Phosphatase, Plasma 505(H) 35 - 104 U/L 11/21/2024 3:58 AM EDT [facility] Total Bilirubin, Plasma 1.0 0.2 - 1.1 mg/dL 11/21/2024 3:58 AM EDT [facility] eGFRcr 96.5 mL/min/1.7 3m*2 11/21/2024 3:58 AM EDT [facility] Comment:Reported eGFRcr in m L/min/1.73m2 is based the CKD-EPI 2020 equation that does not use a race coefficient. Blood Venous blood specimen / Unknown Venipuncture / Unknown 11/21/2024 3:19 AM EDT 11/21/2024 3:27 AM EDT Karol Jane MD LAB BLOOD ORDERABLES Final Re sult Performing Organization Address City/[facility] Co de Phone Number [facility] [address] [place] [address] * Prepare Leukocyte Reduced RBC: 1 Units (11/20/2024 5:27 AM EDT) Only the most recent of3 resultswithin the time period is included. 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 At 58 [...] PM EDT) Case Report Surgical Pathology Case: [id number] Authorizing Provider: Franko Nava MD Collected: 11/18/2024 1897 [facility] Received: 11/18/2024 1620 Pathologist: Geovanny Gomes DO Specimen: Liver 5:03 PM EDT [facility] Final Diagnosis LIVER, BIOPSY: - POSITIVE FOR METASTATIC CARCINOMA (SEE COMMENT). 5:03 PM EDT [facility] at 1703 EDT Comment The [...] high grade endometrioid adenocarcinoma. 5:03 PM EDT [facility] Clinical Information mets to the liver 5:03 PM EDT [facility] Special and Immunohistochemical Stains IHC: A1-2 CK7: Positive in tumor cells. A1-3 PAX8: Positive in tumor cells. A1-4 ER Non-Quantitative: Positive in tumor cells. All controls show appropriate reactivity. All immunohistochemist ry, in situ hybridization, and histochemical tests were developed by and are performed at the [facility], [address] [place] [address]. All tests reported here, except those addressing [...] negativity on decalcified specimens. 5:03 PM EDT [facility] Gross Description A. LIVER Received in formalin labeled l iver , are multiple red-rosales soft tissue cores measuring from 0.3 cm to 1.5 cm in length and up to 0.1 cm in diameter. Entirely submitted in cassette A1. Cold Time: 0 Ro Mcallister 5:03 PM EDT [facility] Intradepartmental Consultation with Agreement Dr. Fuentes 5:03 PM EDT [facility] Note: A resident was involved in the service. I attest I examined the relevant preparations for the specimens and confirmed the diagnosis or interpretation. 5:03 PM EDT [facility] Tissue Liver structure / Unknown Non-blood Collection / Unknown 11/18/2024 3:57 PM EDT 11/18/2024 4:20 PM EDT us Franko Nava MD LAB PATHOLOGY ORDERAB[place] [address] * IR Embolization Tumor or Ischemia or [...] final edited report. Drafted by Luis Miguel Esets MD on 11/18/2024 4:40 PM Final report [...] concern for intratumoral hemorrhage. Patient presents to [facility] for bland embolization of tumor. Additionally, rebiopsy of liver mass is planned due to possible progression. TECHNIQUE: Coordinating Producer: Franko Nava MD Secondary Service Unit Operator Oil Well: Luis Miguel Estes M.D. Rad Dose: [id number] [...] 5 F vascular sheath. Using a 5 British contra 2 catheter, the celiac axis was [...] concern for intratumoral hemorrhage. Patient presents to [facility] embolization of tumor. Additionally, rebiopsy of liver mass isplanned due to possible progression. TECHNIQUE: Coordinating Producer: Franko Nava MD Secondary Service Unit Operator Oil Well: Luis Miguel Estes M.D. Rad Dose: [id number] [...] 5 F vascular sheath. Using a 5 British contra 2catheter, the celiac axis was catheterized. [...] concern for intratumoral hemorrhage. Patient presents to [facility] for bland embolization of tumor. Additionally, rebiopsy of liver mass is planned due to possible progression. TECHNIQUE: Coordinating Producer: Franko Nava MD Secondary Service Unit Operator Oil Well: Luis Miguel Estes M.D. Rad Dose: 1674 [...] 5 F vascular sheath. Using a 5 British contra 2 catheter, the celiac axis was [...] concern for intratumoral hemorrhage. Patient presents to [facility] embolization of tumor. Additionally, rebiopsy of liver mass isplanned due to possible progression. TECHNIQUE: Coordinating Producer: Franko Nava MD Secondary Service Unit Operator Oil Well: Luis Miguel Estes M.D. Rad Dose: 1674 [...] 5 F vascular sheath. Using a 5 British contra 2catheter, the celiac axis was catheterized. [...] PROCEDURES Final Resu lt * (ABNORMAL) Caris FL Cancer Seek Hybrid??? + IHCs and Other Tests by Tumor Type (11/18/2024 2:55 PM EDT) CARIS PD-L1 (22C3) Negative 2024 1:58 PM EDT [facility] [employer] CARIS Mismatch Repair Status Proficient (Intact) 11/30/2024 1:58 PM EDT [employer] CARIS Genomic Loss of Heterozygosity - Exome Low 1% 11/30/2024 1:58 PM EDT [facility] NextGen Platform CARIS Microsatellite Instability - Exome Stable 11/30/2024 1:58 PM EDT [facility] [employer] CARIS Tumor Mutational [place] - Exome Low 1 per Mb 11/30/2024 1:58 PM EDT [facility]IS Libboo [employer] CARIS Estrogen Receptor Positive 11/30/2024 1:58 PM EDT [facility] [employer] CARIS Her2/Shoaib Negative 11/30/2024 1:58 PM EDT [facility] [employer] CARIS Progesterone Receptor Negative 11/30/2024 1:58 PM EDT CARATG Access SCI[employer] CARIS MLH1 Intact nuclear expression 11/30/2024 1:58 PM EDT CARIS [employer] CARIS MSH2 Intact nuclear expression 11/30/2024 1:58 PM EDT [facility] CRISTOBAL MSH6 Intact nuclear expression 11/30/2024 1:58 PM EDT [facility] CRISTOBAL PMS2 Intact nuclear expression 11/30/2024 1:58 PM EDT [facility] CRISTOBAL HLA-A - Exome -,A*02:01 11/30/2024 1:58 PM EDT [facility] CRISTOBAL HLA-B - Exome B*40:01,B*44: 02 11/30/2024 1:58 PM EDT [facility] CRISTOBAL HLA-C - Exome C*03:04,C*05: 01 11/30/2024 1:58 PM EDT [facility] Tissue Non-blood Collection / Unknown 11/18/2024 2:55 PM EDT 11/21/2024 1:03 PM EDT Narrative This result has genomic variants that were not included in this document. us Karol Jane MD LAB MOL DX NO SOURCE Final Re sult [facility] [address] [address], [place] [phone] * Fine needle aspiration - Core Biopsy (11/18/2024 2:55 PM EDT) Case Report Cytology Case: [id number] Authorizing Provider: Franko Nava MD Collected: 11/18/2024 1455 Ordering Location: [facility] A Emergency Department Received: 11/18/2024 1520 Specimen: Liver, LIVER, CT GUIDED CORE BIOPSY 3:41 PM EDT [facility] Final Diagnosis A. LIVER, CT GUIDED CORE BIOPSY: - POSITIVE FOR MALIGNANCY, METASTATIC CARCINOMA CONSISTENT WITH PREVIOUSLY DIAGNOSED ENDOMETRIAL CARCINOMA, SEE COMMENT 3:41 PM EDT [facility] at 1541 EDT Comment History [...] not identical to the previous surgical specimen ([id number]), the staining pattern noted below is identical to the previous tumor. 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 Material is present in the cell block for ancillary testing as clinically indicated. 3:41 PM EDT [facility] Special and Immunohistochemical Stains IHC: A1-1 CK-AE1/AE3 Positive A1-2 PAX8 Positive A1-3 ER Non-Quantitative Positive, moderate intensity in the majority of the cells A1-4 SD Non-Quantitative Rare positive cells, weak intensity A1-5 Androgen Receptor Positive, variable All controls show appropriate reactivity. All immunohistochemis try, in situ hybridization, and histochemical tests were developed by and are performed at the [facility], [address] [place] [address]. All tests reported here, except those addressing [...] on decalcified specimens. 5 3:41 PM EDT [facility] Intradepartmental Consultation with Agreement Dr. Fuentes 3:41 PM EDT [facility] Immediate Evaluation Core biopsy performed by: Dr. Nava Number of sticks: 5 This service has been rendered in part by a resident. A pathologist has personally reviewed the slides/tissue and has rendered and is responsible for diagnosis for the diagnosis that appears on the report. 5 3:41 PM EDT [facility] Clinical History metastesis to liver 5 3:41 PM EDT [facility] Procedure Type US 5 3:41 PM EDT [facility] Size/Description of Lesion liver tumor 5 3:41 PM EDT [facility] Cancer History Yes 5 3:41 PM EDT [facility] Gross Description A. LIVER, CT [...] Cold Time: 13m 5 3:41 PM EDT [facility] Note: A resident was involved in the service. I attest I examined the relevant preparations for the specimens and confirmed the diagnosis or interpretation. 5 3:41 PM EDT [facility] Clinical Information No Dx found. 5 3:41 PM EDT [facility] Fine Needle Aspirate Liver structure / Unknown Non-blood Collection / Unknown 11/18/2024 2:55 PM EDT 11/18/2024 3:20 PM EDT us Franko Nava MD LAB CYTOLOGY ORDERABLES Sonali barahona Result [facility] [address] [place] [address] * Type and screen (11/18/2024 9:33 AM [...] ORDERABLE S Final Result BLOOD BANK [address] [place] [address], * PERIPHERAL IV (SMARTFORM LINK) (11/18/2024 7:57 [...] LAB HEMATOLOGY METHOD 11/18/2024 6:06 AM EDT [facility] HCT 21.3(L) 34.0 - 45.0 % LAB HEMATOLOGY METHOD 11/18/2024 6:06 AM EDT [facility] Blood Venous blood specimen / Unknown Venipuncture / Unknown 11/18/2024 5:54 AM EDT 11/18/2024 6:04 AM EDT Karol Jane MD LAB BLOOD ORDERABLES Final Re sult [facility] [address] [place] [address] * [place] Abdomen RUQ (11/17/2024 2:00 PM [...] - 35 sec 11/17/2024 1:44 PM EDT [facility] Blood Venous blood specimen / Unknown Venipuncture / Unknown 11/17/2024 1:25 PM EDT 11/17/2024 1:27 PM EDT aKreem Guidry MD LAB BLOOD ORDERABLES Fin al Result [facility] [address] [place] [address] * (ABNORMAL) PT-INR (11/17/2024 1:25 PM EDT) Only the most recent of3 resultswithin the time period is included. Pathologist [facility] Prothrombin Time 15.4(H) 12.0 - 14.3 sec 11/17/2024 1:43 PM EDT [facility] INR 1.2(H) 0.9 - 1.1 11/17/2024 1:43 PM EDT [facility] Blood Venous blood specimen / Unknown Venipuncture / Unknown 11/17/2024 1:25 PM EDT 11/17/2024 1:27 PM EDT Narrative [facility] - 11/17/2024 1:43 PM EDT OPTIMAL INR RANGES FOR PATIENT ON ORAL ANTICOAGULANT THERAPY Prevention of venous thromboembolism INR 2.0 to 3.0 In patients with heart disease: Atrial fibrillation INR 2.0 to 3.0 Valvular heart disease INR 2.0 to 3.0 Tissue heart valves INR 2.0 to 3.0 Mechanical prosthetic valves INR 2.5 to 3.5 Prevention of recurrent FL INR 2.5 to 3.5 us Kareem Guidry MD LAB BLOOD ORDERABLES Health [facility] al Result [facility] [address] [place] [address] * (ABNORMAL) CBC w/diff (11/17/2024 1:25 PM EDT) Only the most recent of3 resultswithin the time period is included. Pathologist [facility] WBC Count 12.34(H) 3.70 - 10.30 10*3/uL LAB HEMATOLOGY METHOD 11/17/2024 1:30 PM EDT [facility] RBC Count 3.19(L) 3.90 - 5.20 10*6/uL LAB HEMATOLOGY METHOD 11/17/2024 1:30 PM EDT [facility] HGB 8.4(L) 11.2 - 15.7 g/dL LAB HEMATOLOGY METHOD 11/17/2024 1:30 PM EDT [facility] HCT 27.1(L) 34.0 - 45.0 % LAB HEMATOLOGY METHOD 11/17/2024 1:30 PM EDT [facility] Platelet Count 308 155 - 369 10*3/uL LAB HEMATOLOGY METHOD 11/17/2024 1:30 PM EDT [facility] MCV 85 79 - 98 fL LAB HEMATOLOGY METHOD 11/17/2024 1:30 PM EDT [facility] MCH 26.3 26.0 - 32.0 pg LAB HEMATOLOGY METHOD 11/17/2024 1:30 PM EDT [facility] MCHC 31.0 30.7 - 35.5 g/dL LAB HEMATOLOGY METHOD 11/17/2024 1:30 PM EDT [facility] RDW 16.7(H) 11.5 - 14.5 % LAB HEMATOLOGY METHOD 11/17/2024 1:30 PM EDT [facility] MPV 9.6 8.8 - 12.5 fL LAB HEMATOLOGY METHOD 11/17/2024 1:30 PM EDT [facility] nRBC 0.0 <=0.0 per 100 WBCs LAB HEMATOLOGY METHOD 11/17/2024 1:30 PM EDT [facility] Differential Type Automated LAB HEMATOLOGY METHOD 11/17/2024 1:30 PM EDT [facility] Neutrophils % 80 % LAB HEMATOLOGY METHOD 11/17/2024 1:30 PM EDT [facility] Lymphocytes % 11 % LAB HEMATOLOGY METHOD 11/17/2024 1:30 PM EDT [facility] Monocytes % 5 % LAB HEMATOLOGY METHOD 11/17/2024 1:30 PM EDT [facility] Eosinophils % 1 % LAB HEMATOLOGY METHOD 11/17/2024 1:30 PM EDT [facility] Basophils % 1 % LAB HEMATOLOGY METHOD 11/17/2024 1:30 PM EDT [facility] Immature Granulocytes % 2 % LAB HEMATOLOGY METHOD 11/17/2024 1:30 PM EDT [facility] Neutrophils Absolute 10.04(H) 1.60 - 6.10 10*3/uL LAB HEMATOLOGY METHOD 11/17/2024 1:30 PM EDT [facility] Lymphocytes Absolute 1.31 1.20 - 3.90 10*3/uL LAB HEMATOLOGY METHOD 11/17/2024 1:30 PM EDT [facility] Monocytes Absolute 0.62 0.30 - 0.90 10*3/uL LAB HEMATOLOGY METHOD 11/17/2024 1:30 PM EDT [facility] Eosinophils Absolute 0.08 0.00 - 0.50 10*3/uL LAB HEMATOLOGY METHOD 11/17/2024 1:30 PM EDT [facility] Basophils Absolute 0.06 0.00 - 0.10 10*3/uL LAB HEMATOLOGY METHOD 11/17/2024 1:30 PM EDT [facility] Immature Granulocytes Absolute 0.23(H) 0.00 - 0.06 10*3/uL LAB HEMATOLOGY METHOD 11/17/2024 1:30 PM EDT [facility] Blood Venous blood specimen / Unknown Venipuncture / Unknown 11/17/2024 1:25 PM EDT 11/17/2024 1:27 PM EDT Narrative [facility] - 11/17/2024 1:30 PM EDT Therapeutic decision making should be based on absolute values, rather than percentages. Kareem Guidry MD LAB BLOOD ORDERABLES Fin al Result Performing Organization Address City/[facility] Co de Phone Number [facility] [address] [place] [address] * (ABNORMAL) Lipase (11/17/2024 1:25 PM EDT) Lipase, Plasma 14(L) 19 - 63 U/L 11/17/2024 1:50 PM EDT [facility] Blood Venous blood specimen / Unknown Venipuncture / Unknown 11/17/2024 1:25 PM EDT 11/17/2024 1:27 PM EDT Kareem Guidry MD LAB BLOOD ORDERABLES Fin al Result Performing Organization Address City/[facility]/ZIP Co de Phone Number [facility] [address] [place] [address] * (ABNORMAL) Ionized calcium, whole blood (11/14/2024 1:07 AM EDT) Only the most recent of3 resultswithin the time period is included. Ionized Calcium, Whole Blood 4.4(L) 4.6 - 5.1 mg/dL LAB HEMATOLOGY METHOD 11/14/2024 1:58 AM EDT [facility] Blood Venous blood specimen / Unknown Venipuncture / Unknown 11/14/2024 1:07 AM EDT 11/14/2024 1:50 AM EDT us Korey Rolle MD LAB BLOOD ORDERABLES Final Result Performing Organization Address [facility] Co de Phone Number [facility] [facility] [address] [place] [address] * (ABNORMAL) Fibrinogen (11/14/2024 1:07 AM EDT) Pathologist [facility] Fibrinogen, Quantitative (Clottable) 512(H) 208 - 459 mg/dL LAB COAGULATION METHOD 11/14/2024 2:09 AM EDT [facility] Blood Venous blood specimen / Unknown Venipuncture / Unknown 11/14/2024 1:07 AM EDT 11/14/2024 1:48 AM EDT Karol Jane MD LAB BLOOD ORDERABLES Final Re sult Performing Organization Address [facility] Co de Phone Number [facility] [address] [place] [address] * (ABNORMAL) Basic metabolic panel (11/14/2024 1:07 AM EDT) Only the most recent of5 resultswithin the time period is included. [facility] Glucose, Plasma 85 74 - 99 mg/dL 11/14/2024 2:18 AM EDT [facility] BUN, Plasma 12 7 - 21 mg/dL 11/14/2024 2:18 AM EDT [facility] Creatinine, Plasma 0.99 0.60 - 1.10 mg/dL 11/14/2024 2:18 AM EDT [facility] BUN/Creatinine Ratio 12 11/14/2024 2:18 AM EDT [facility] Sodium, Plasma 142 136 - 145 mmol/L 11/14/2024 2:18 AM EDT [facility] Potassium, Plasma 3.7 3.6 - 4.9 mmol/L 11/14/2024 2:18 AM EDT [facility] Chloride, Plasma 108(H) 97 - 107 mmol/L 11/14/2024 2:18 AM EDT [facility] CO2, Plasma 21(L) 22 - 29 mmol/L 11/14/2024 2:18 AM EDT [facility] Anion Gap 13 6 - 16 mmol/L 11/14/2024 2:18 AM EDT [facility] Total Calcium, Plasma 8.1(L) 8.9 - 10.2 mg/dL 11/14/2024 2:18 AM EDT [facility] eGFRcr 71.4 mL/min/1.7 3m*2 11/14/2024 2:18 AM EDT [facility] Comment:Reported eGFRcr in m L/min/1.73m2 is based the CKD-EPI 2020 equation that does not use a race coefficient. Blood Venous blood specimen / Unknown Venipuncture / Unknown 11/14/2024 1:07 AM EDT 11/14/2024 1:49 AM EDT Korey Rolle MD LAB BLOOD ORDERABLES Final Result [facility] [address] [place] [address] * Comprehensive GI Panel by PCR (11/11/2024 8:01 PM EDT) Campylobacter PCR Result Not Detected Not Detected 11/12/2024 5:52 AM EDT [facility] Plesiomonas shigelloides PCR Result Not Detected Not Detected 11/12/2024 5:52 AM EDT [facility] Salmonella PCR Result Not Detected Not Detected 11/12/2024 5:52 AM EDT [facility] Vibrio species PCR Result Not Detected Not Detected 11/12/2024 5:52 AM EDT [facility] Vibrio cholerae PCR Result Not Detected Not Detected 11/12/2024 5:52 AM EDT [facility] Yersinia enterocolitica PCR Result Not Detected Not Detected 11/12/2024 5:52 AM EDT [facility] Enteroaggregative E. coli (EAEC) PCR Result Not Detected Not Detected 11/12/2024 5:52 AM EDT [facility] Enteropathogenic E. coli (EPEC) PCR Result Not Detected Not Detected 11/12/2024 5:52 AM EDT [facility] Enterotoxigenic E. coli (ETEC) lt/st PCR Result Not Detected Not Detected 11/12/2024 5:52 AM EDT [facility] Shiga-like Toxin-Producing E.coli (STEC) stx1/stx2 PCR Resu Not Detected Not Detected 11/12/2024 5:52 AM EDT [facility] E coli 0157 PCR Result Not Detected Not Detected 11/12/2024 5:52 AM EDT [facility] Shigella/Enteroinvas christal E. coli (EIEC) PCR Result Not Detected Not Detected 11/12/2024 5:52 AM EDT [facility] Cryptosporidium PCR Result Not Detected Not Detected 11/12/2024 5:52 AM EDT [facility] Cyclospora cayetanensis PCR Result Not Detected Not Detected 11/12/2024 5:52 AM EDT [facility] Entamoeba histolytica PCR Result Not Detected Not Detected 11/12/2024 5:52 AM EDT [facility] Giardia duodenalis (aka Giardia lamblia) PCR Result Not Detected Not Detected 11/12/2024 5:52 AM EDT [facility] Adenovirus F 40/41 PCR Result Not Detected Not Detected 11/12/2024 5:52 AM EDT [facility] Astrovirus PCR Result Not Detected Not Detected 11/12/2024 5:52 AM EDT [facility] Norovirus GI/GII PCR Result Not Detected Not Detected 11/12/2024 5:52 AM EDT [facility] Rotavirus A PCR Result Not Detected Not Detected 11/12/2024 5:52 AM EDT [facility] Sapovirus PCR Result Not Detected Not Detected 11/12/2024 5:52 AM EDT [facility] Stool Rectum structure / Unknown Non-blood Collection / Unknown 11/11/2024 8:01 PM EDT 11/11/2024 8:13 PM EDT [facility] - 11/12/2024 5:52 AM EDT [...] GENERAL ORDERABLES Final Result Performing Organization Address [facility] Co de Phone Number [address] [address] * Clostridiodes (Clostridium) difficile PCR (11/11/2024 8:01 PM EDT) C difficile PCR toxin B gene DNA Result Not Detected Not Detected 11/11/2024 9:22 PM EDT [facility] Stool Rectum structure / Unknown Non-blood Collection / Unknown 11/11/2024 8:01 PM EDT 11/11/2024 8:13 PM EDT Narrative [facility] - 11/11/2024 9:22 PM EDT [...] GENERAL ORDERABLES Final Result Performing Organization Address [facility] Co de Phone Number [address] [address] * CT Chest wo IV Contrast (11/11/2024 [...] Urine 76 mmol/L 11/11/2024 4:13 AM EDT [facility] Urine Urine specimen obtained by clean catch procedure / Unknown Non-blood Collection / Unknown 11/11/2024 3:34 AM EDT 11/11/2024 3:43 AM EDT Morelia Galvez MD LAB URINE ORDERABLES Final Result Performing Organization Address City/[facility]/ZIP Co de Phone Number [facility] [address] [place] [address] * Creatinine, urine, random (11/11/2024 3:34 AM EDT) Creatinine, Urine 105 mg/dL 11/11/2024 4:13 AM EDT [facility] Urine Urine specimen obtained by clean catch procedure / Unknown Non-blood Collection / Unknown 11/11/2024 3:34 AM EDT 11/11/2024 3:43 AM EDT Morelia Galvez MD LAB URINE ORDERABLES Final Result [facility] [address] [place] [address] * CT Abdomen Pelvis w IV Contrast [...] (series 3, image 74 and series 5, [id number]) , previously measured 9.0 x 6.1 x [...] - 99 mg/dL 11/09/2024 7:13 AM EDT [facility] Comment:Accuracy of a glucos e result [...] for testing. Comment 11/09/2024 7:13 AM EDT [facility] Service Unit Operator Oil Well ID Justine Singh 11/09/2024 7:13 AM EDT [facility] Device ID [id number] 11/09/2024 7:13 AM EDT [facility] Specimen Type POC Capillary 11/09/2024 7:13 AM EDT [facility] Blood Capillary blood specimen / Unknown 11/09/2024 7:12 AM EDT 11/09/2024 7:13 AM EDT us Morelia Galvez MD LAB POINT OF CARE TEST DOCKED DEVICE UNSOLICITED RESULTS Final Result Performing Organization Address [facility] de Phone Number [facility] [address] [place] [address] * (ABNORMAL) Troponin T, High Sensitivity, 2 Hour, Plasma (11/08/2024 3:17 PM EDT) Troponin T, High Sensitivity, 2 Hour 17(H) <14 ng/L 11/08/2024 3:51 PM EDT [facility] Troponin Delta 3 <10 ng/L 11/08/2024 3:51 PM EDT [facility] Troponin Delta Interpretation Not Significant 11/08/2024 3:51 PM EDT [facility] Comment:Not Significant. No acute change in troponin observed between the baseline and 2 hour samples. Blood Venous blood specimen / Unknown Venipuncture / Unknown 11/08/2024 3:17 PM EDT 11/08/2024 3:24 PM EDT us Blaire Fuchs MD LAB BLOOD ORDERABLES Final R esult Performing Organization Address City/[facility] Co de Phone Number [facility] [address] [place] [address] * Heparin level (11/08/2024 1:57 PM EDT) Anti Xa Level Unfractionated Heparin <0.11 <1.00 IU/mL LAB COAGULATION METHOD 11/08/2024 2:26 PM EDT [facility] Blood Venous blood specimen / Unknown Venipuncture / Unknown 11/08/2024 1:57 PM EDT 11/08/2024 2:07 PM EDT Narrative [facility] - 11/08/2024 2:26 PM EDT Therapeutic Range: UFH Full Dose and ACS/FL protocols*: 0.30 - 0.70 IU/mL UFH Low Dose protocol*: 0.25 - 0.50 IU/mL UFH prophylaxis: Not established us Blaire Fuchs MD LAB BLOOD ORDERABLES Final R esult [facility] [address] [place] [address] * US Abdomen Focused Region GB, Bile [...] 1/2 Differentiation (11/08/2024 1:12 PM EDT) Pathologist [facility] HIV 1 & 2 Antibody/Antigen Screen Non Reactive Non Reactive 11/08/2024 2:06 PM EDT [facility] Comment:Screening for HIV 1 & 2 antibodies, and P24 antigen is NONREACTIVE. No confirmatory testing is required. Blood Venous blood specimen / Unknown Venipuncture / Unknown 11/08/2024 1:12 PM EDT 11/08/2024 1:24 PM EDT us Blaire Fuchs MD LAB BLOOD ORDERABLES Final R esult Performing Organization Address City/[facility]/ZIP Co de Phone Number [facility] [address] [place] [address] * (ABNORMAL) Troponin now and 120 min (11/08/2024 1:12 PM EDT) [facility] Troponin T, High Sensitivity, 0 Hour 14(H) <14 ng/L 11/08/2024 1:55 PM EDT [facility] Blood Venous blood specimen / Unknown Venipuncture / Unknown 11/08/2024 1:12 PM EDT 11/08/2024 1:25 PM EDT us Blaire Fuchs MD LAB BLOOD ORDERABLES Final R esult [facility] [address] [place] [address] * (ABNORMAL) BNP (11/08/2024 1:12 PM EDT) [facility] N-Terminal, PROBNP, Plasma 523(H) 0 - 449 pg/mL 11/08/2024 1:55 PM EDT [facility] Blood Venous blood specimen / Unknown Venipuncture / Unknown 11/08/2024 1:12 PM EDT 11/08/2024 1:25 PM EDT us Blaire Fuchs MD LAB BLOOD ORDERABLES Final R esult [facility] [address] [place] [address] * EKG now - STAT (adult) (11/08/2024 11:25 AM EDT) Pathologist [facility] EKG DIAGNOSIS CLASS Borderline Abnormal MUSE ECG Ventricular Rate 94 BPM MUSE ECG Atrial Rate 94 BPM MUSE ECG SD Interval 128 ms MUSE ECG QRSD Interval 100 ms MUSE ECG QT Interval 364 ms MUSE ECG QTC Interval 455 ms MUSE ECG P Urania 65 degrees MUSE ECG R Urania 11 degrees MUSE ECG T Wave Urania 8 degrees MUSE ECG Diagnosis Normal sinus rhythm MUSE ECG Diagnosis RSR' V1, is likely a normal variant MUSE ECG Diagnosis Borderline ECG MUSE ECG Diagnosis MUSE ECG Diagnosis Confirmed by Yovani Liu ([id number]) on 11/09/2024 9:56:32 AM MUSE ECG 11/08/2024 11:2 5 AM EDT 11/09/2024 9:56 AM EDT us Blaire Fuchs MD ECG ORDERABLES Final Result Performing Organization Address City/[facility]/ZIP Co de Phone Number MUSE ECG * US OUTSIDE IMAGES (11/08/2024 7:00 AM EDT) Only the most recent of2 resultswithin the time period is included. Anatomical Region Laterality Modality Ultrasound 11/08/2024 7:00 AM EDT us External Provider IMG US PROCEDURES Final Result * [place] Hepatitis C Antibody (12/16/2017 9:07 PM EDT) Pathologist [facility] [place] Hepatitis C Ab BEING REPEATED TO CONFIRM [...] updated to appropriate status: Yes Care Teams Wrecking Mechanic Relationship Specialty Start Date End Date Pcp, No [address] [place] [address] PCP - General Family Medicine 06/16/23
--- OUTSIDE RECORDS SUMMARY | 2025-01-13 15:16 | XMS_ITS | Encounter Summary ---
Author Organization [facility] Address [address] [place] [address] Care Team Providers Care Dump Motorman Name Role Phone Pcp, No Primary Care [...] in a fpc (including now)? No 11/18/2024 [facility] Utilities Answer Date Recorded In the [...] drink first t nicolas in the morning (EYE-HI RANGER OPERATOR) to steady your nerves or to [...] EST Appointment [facility] [address] [place] [address] 03/19/2025 1:45 PM EST Office Visit [facility] Gynecology [address] [place] [address] Karol Jane MD [address] [place] [address] documented as of this encounter Visit Diagnoses Not on filedocumented in this encounter Additional Health Concerns Assessment Noted Time A Body Mass Index follow-up plan has been documented for the patient 11/21/2024 8:58 AM EDT documented as of this encounter Care Teams Dump Motorman Relationship Specialty Start Date End Date Pcp, No [address] [place] [address] PCP - General Family Medicine 06/16/23 documented as of this encounter
--- OUTSIDE RECORDS SUMMARY | 2025-01-13 15:16 | XMS_ITS ---
Author Organization [facility] Address [address] [place] [address] Care Team Providers Care Stage Setting Painter Apprentice Name Role Phone Pcp, No Primary Care [...] that would be needed Recommend admission to insulation supervisor onc vs medicine EGS will continue to follow Endometrial cancer 11/10/2024 Assessment & Plan (11/11/2024 11:30 AM EDT): Dishtank Operator Onc consultation Assessment & Plan (11/10/2024 1:52 PM EDT): Dishtank Operator Onc consultation Metastasis to liver 11/10/2024 [...]
--- OUTSIDE RECORDS SUMMARY | 2025-01-13 15:16 | XMS_ITS | Encounter Summary ---
Author Organization [facility] Address [address] [place] [address] Care Team Providers Care Healthcare Management Name Role Phone Pcp, No Primary Care [...] the past 12 m [facility], were you homeless or living in a skilled nursing (including now)? No 11/18/2024 [facility] Utilities Answer Date Recorded In [...] drink first t nicolas in the morning (EYE-NASCAR RACER) to steady your nerves or to get [...] Behavior (Lifetime) No 10:00 AM EDT Socrates eLw RN documented as of this encounter Plan of Treatment Upcoming Encounters Date Type Department Care Team (Late st Contact Info) Description 03/19/2025 12:10 PM EST Appointment [facility] [address] [place] [address] 03/19/2025 1:45 PM EST Office Visit [facility] [address] [place] [phone] Karol Jane MD [address] [facility] [address] [place] [address] documented as of this encounter Visit Diagnoses Not on filedocumented in this encounter Additional Health Concerns Assessment Noted Time A Body Mass Index follow-up plan has been documented for the patient 11/21/2024 8:58 AM EDT documented as of this encounter Care Teams Healthcare Management Relationship Specialty Start Date End Date Pcp, No [address] [place] [address] PCP - General Family Medicine 06/16/23 documented as of this encounter
--- OUTSIDE RECORDS SUMMARY | 2025-01-13 15:17 | XMS_ITS | Encounter Summary ---
Author Organization [facility] Address [address] [place] [address] Care Team Providers Care Controls Design Engineer Name Role Phone Pcp, No Primary [...] any time in the past 12 m [facility], were you homeless or living in a mcfp (including now)? No 11/18/2024 [facility] Utilities Answer Date Recorded In the past 12 months has e [employer], gas, oil, or water [employer] threatened to shut off services in your [...] drink first t nicolas in the morning (EYE-AVIONICS SYSTEM ENGINEER) to steady your nerves or to get [...] EST Appointment [facility] [address] [place] [phone] 03/19/2025 1:45 PM EST Office Visit [facility] [address] [place] [phone] Karol Jane MD [address] [facility] [address] [place] [address] documented as of this encounter Visit Diagnoses Not on filedocumented in this encounter Additional Health Concerns Assessment Noted Time A fall risk assessment has been complete d for the patient 12/04/2024 10:03 AM EDT A Body Mass Index follow-up plan has been documented for the patient 11/21/2024 8:58 AM EDT documented as of this encounter Care Teams Controls Design Engineer Relationship Specialty Start Date End Date Pcp, Saloni [address] [place] [address] PCP - General Family Medicine 06/16/23 documented as of this encounter
--- OUTSIDE RECORDS SUMMARY | 2025-01-13 15:17 | XMS_ITS | Encounter Summary ---
Author Organization [facility] Address [address] [place] [address] Care Team Providers Care Superintendent Oil Field Drilling Name Role Phone Pcp, No Primary Care [...] time in the past 12 m [facility], were you homeless or living in a fpc (including now)? No 11/18/2024 [place] Utilities Answer Date Recorded In the past [...] drink first t nicolas in the morning (EYE-FINANCIAL DEALERS) to steady your nerves or to get [...] EST Appointment [facility] [address] [place] [address] 03/19/2025 1:45 PM EST Office Visit [facility] [address] [place] [address] Karol Jaen MD [address] [place] [address] documented as of this encounter Visit Diagnoses Not on filedocumented in this encounter Additional Health Concerns Assessment Noted Time A Body Mass Index follow-up plan has been documented for the patient 11/21/2024 8:58 AM EDT documented as of this encounter Care Teams Superintendent Oil Field Drilling Relationship Specialty Start Date End Date Pcp, No [address] [place] [address] PCP - General Family Medicine 06/16/23 documented as of this encounter
--- OUTSIDE RECORDS SUMMARY | 2025-01-13 15:17 | XMS_ITS | Encounter Summary ---
Author Organization [facility] Address [address] [place] [address] Care Team Providers Care Technical Associate Name Role Phone Pcp, No Primary [...] in the past 12 m [facility], were you homeless or living in a chcf (including now)? No 11/18/2024 [facility] Utilities Answer Date Recorded In [...] drink first t nicolas in the morning (EYE-ANIMAL CARETAKER SUPERVISOR) to steady your nerves or to get [...] EST Appointment [facility] [address] [place] [address] 03/19/2025 1:45 PM EST Office Visit [facility] [address] [place] [address] Karol Jane MD [address] [facility] [address] [facility] [address] [place] [address] documented as of this encounter Visit Diagnoses Not on filedocumented in this encounter Additional Health Concerns Assessment Noted Time A Body Mass Index follow-up plan has been documented for the patient 11/21/2024 8:58 AM EDT documented as of this encounter Care Teams Technical Associate Relationship Specialty Start Date End Date Pcp, No [address] [place] [address] PCP - General Family Medicine 06/16/23 documented as of this encounter
--- OUTSIDE RECORDS SUMMARY | 2025-01-13 15:17 | XMS_ITS | Encounter Summary ---
Author Organization [facility] Address [address] [place] [address] Care Team Providers Care Entry Level Account Representative Name Role Phone Pcp, No Primary Care [...] were you homeless or living in a senior living (including now)? No 11/11/2024 [facility] Utilities Answer Date Recorded In the [...] EST Appointment [facility] [address] [place] [address] 03/19/2025 1:45 PM EST Office Visit [facility] [address] [place] [address] Karol Jane MD [address] [place] [address] documented as of this encounter Visit Diagnoses Not on filedocumented in this encounter Additional Health Concerns Assessment Noted Time A Body Mass Index follow-up plan has been documented for the patient 11/14/2024 8:03 PM EDT documented as of this encounter Care Teams Entry Level Account Representative Relationship Specialty Start Date End Date Pcp, No [address] [place] [address] PCP - General Family Medicine 06/16/23 documented as of this encounter
[2025-01-13 15:22] LABS: Bilirubin,Urine Negative (Negative)
--- NOTE | 2025-01-13 15:29 | HMH.ITSTN ---
waiting on new IV before scan
[2025-01-13 15:51] LABS: Hematocrit 36.0 % (37.0-47.0); Immature Granulocytes % 5.1 %; Mean Corpuscular HGB Conc 31.1 g/dL (31.8-35.4); Mean Corpuscular Hemoglobin 26.9 pg (27.0-31.2); Mean Corpuscular Volume 86.3 fl (81-99); Nucleated Red Blood Cells % 0 %; Platelet Count 206 K/mm3 (142-424); Red Blood Count 4.17 M/mm3 (4.20-5.40); Red Cell Distribution Width-SD 51.9 fL; White Blood Count 7.5 K/mm3 (4.8-10.8)
[2025-01-13 15:52] LABS: VBG HCO3 20.0 mmol/L (23-30); VBG PCO2 43.0 mmol/L (35-51); VBG PH 7.29 mmol/L (7.31-7.41); VBG PO2 43.0 mmol/L (28-40)
--- NOTE | 2025-01-13 15:52 | PC.NURSE ---
transported to ct scan
[2025-01-13 15:55] LABS: Lactate Venous 4.1 mmol/L (0.4-2.0)
[2025-01-13] MEDS: 0.9 % SODIUM CHLORIDE 50 ML VIAL IV (15:59)
[2025-01-13] MEDS: SODIUM CHLORIDE 0.9% 10ML SYR (RAD ONLY) 10 ML IV (15:59)
[2025-01-13] MEDS: IOPAMIDOL-370 (76%);100ML BOTTLE 70 ML IV (15:59)
[2025-01-13 16:00] VITALS: BP 126/83; PULSE 99; O2SAT 95
[2025-01-13 16:01] LABS: Bacteria,Urine 4+ /lpf; RBC,Urine 20-50 #/hpf (0-3); Squamous Epithelial Cell,Urine 50-100 #/hpf (0-5); WBC,Urine 20-50 #/hpf (0-3)
[2025-01-13 16:06] LABS: INR 1.08 (0.9-1.1); Prothrombin Time 11.9 seconds (10.1-12.5)
[2025-01-13 16:07] VITALS: BP 118/54; PULSE 87; O2SAT 96
[2025-01-13 16:07] LABS: Alanine Aminotransferase 28 U/L (12-78); Albumin Level 4.2 g/dl (3.5-5.0); Albumin/Globulin Ratio 1.0 (1.1-1.8); Alkaline Phosphatase 194 U/L (38-126); Anion Gap 16.8 mEq/L (5-15); Aspartate Amino Transferase 39 U/L (14-36); Bilirubin,Total 1.7 mg/dl (0.2-1.3); Blood Urea Nitrogen 8 mg/dl (7-17); Calcium 8.9 mg/dl (8.4-10.2); Carbon Dioxide 18 mmol/L (22.0-30.0); Chloride 104 mmol/L (98-107); Creatinine Clearance Estimated 143 mL/min (50-200); Creatinine,Serum 0.80 mg/dl (0.52-1.04); Estimated Glomerular Filt Rate 77 ml/min (>60); GFR (African American) 93 ML/MIN (>60); Globulin 4.1 g/dL (1.3-3.2); Glucose 202 mg/dl (74-100); Potassium 3.8 mmoL/L (3.5-5.1); Sodium 135 mmol/L (136-145); Total Protein,Serum 8.3 g/dl (6.3-8.2)
[2025-01-13] MEDS: LACTATED RINGERS 1000ML 1,000 ML 999 ML IV (16:10)
[2025-01-13 16:12] LABS: C-Reactive Protein 9.3 mg/L (0-4)
[2025-01-13 16:18] LABS: NT Pro Brain Natriuretic Pep. 113 pg/mL (0-125)
[2025-01-13 16:31] VITALS: BP 118/54; PULSE 79; O2SAT 97
[2025-01-13 16:32] LABS: Troponin I < 0.01 ng/ml (0.00-0.034)
[2025-01-13 17:22] LABS: Total Cells Counted 100
[2025-01-13 17:23] LABS: Anisocytosis 1+; Polychromasia 1+
[2025-01-13 17:27] LABS: Hemoglobin 11.2 g/dL (12.2-16.2)
[2025-01-13 18:12] VITALS: BP 122/61; PULSE 78; RESP 20; TEMP 36.8; O2SAT 97
[2025-01-13 19:54] LABS: Reflex Lactic Add Lactic Reflex
== END 2025-01-13 18:14 | disposition home or self-care (01) ==
PROVIDERS: Emergency Provider Student in an Organized Health Care Education/Training Program; PCP Internal Medicine
DX: R09.02 Hypoxemia (principal); T45.1X5A Adverse effect of antineoplastic and immunosuppressive drugs, initial encounter; J90 Pleural effusion, not elsewhere classified; R74.02 Elevation of levels of lactic acid dehydrogenase [LDH]; R00.0 Tachycardia, unspecified; R11.2 Nausea with vomiting, unspecified; C53.9 Malignant neoplasm of cervix uteri, unspecified; F17.210 Nicotine dependence, cigarettes, uncomplicated
CPT/HCPCS: 71275; 80053; 81001; 82803; 83880; 84484; 85007; 85025; 85610; 86140; 87040; 87086; 87636; 96360; 99285; J7120; Q9967

== ENCOUNTER 2025-01-19 08:37 | Outpatient (CLI) | payer MEDICAID, SELFPAY ==
--- OUTSIDE RECORDS SUMMARY | 2024-11-17 12:26 | XMS_ITS | Encounter Summary ---
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 Role Phone Pcp, No Primary Care Provider Unavailabl e Reason for Referral * Imaging (Routine) - Closed Specialty Diagnoses / Procedures Referred By Dung chang Referred To Contact Radiology Diagnoses Metastasis to liver Procedures IR Embolization Tumor or Ischemia or Infarction Franko Nava MD [address] [place] [address] Phone: tel: fax: Referral ID Status Reason Start Date Expiration Date Visits Re quested Visits Authorized [id number] Closed 11/14/2024 05/16/2026 1 1 Reason for Visit * Reason Comments Vomiting * Auth/Cert (Routine) Specialty Diagnoses / Procedures Referred By Dung chang Referred To Contact Diagnoses RUQ abdominal pain Vinicius oLve MD [address] [facility] [address] [place] [address] Phone: tel: fax: PAV A Emergency Department [address] [place] [address] Phone: tel: Referral ID Status Reason Start Date Expiration Date Visits Re quested Visits Authorized [id number] 1 1 Encounter Details Date Type Department Care Team (Late st Contact Info) Description 11/17/2024 1:26 PM EDT - 11/21/2024 10:43 AM EDT Hospital Encounter [facility] Inpatient [facility] [address] [place] [id number] Elisabeth Hernandez MD [address] [place] [address] Vinicius Love MD [address] [place] [address] RUQ abdominal pain (Primary Dx); Endometrial cancer (CMS/HCC); Metastasis to liver (CMS/HCC); 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 No 11/18/2024 Within the last year, have y ou been humiliated or emotionally abused in other ways by your partner or ex-partner? No Within the last year, have y ou been kicked, hit, slapped, or otherwise physically hurt by your partner or ex-partner? No 11/18/2024 Within the last year, have y ou been raped or forced to have any kind of sexual activity by your partner or ex-partner? No 11/18/2024 Hunger Vital Sign Answer Date Recorded Within the past 12 months, y ou worried that your food would run out before you got the money to buy more. Never true 11/19/19 25 Within the past 12 months, t he food you bought just didn't last and you didn't have money to get more. Never true 11/18/2024 PRAPARE - Transportation Answer Date Re corded In the past 12 months, has l ack of transportation kept you from medical appointments or from getting medications? No 11/2024 In the past 12 months, has l ack of transportation kept you from meetings, work, or from getting things needed for daily living? No 11/18/2024 Housing Stability Vital Sign Answer Collin e Recorded In the last 12 months, was t here a time when you were not able to pay the mortgage or rent on time? No 11/18/2024 Number of Times Moved in the Last Year Not on fi le 11/18/2024 At any time in the past [address] [facility], were you homeless or living in a skilled nursing (including now)? No 11/18/2024 [facility] Utilities Answer Date Recorded In the past 12 months has th e electric, gas, oil, or water company threatened to shut off services in your home? No 11/18/2024 CAGE ASSESSMENT Answer Date Recorded Cage unable to access Not on file 11/18/2024 Cage max number of drinks Not on file 2024 Cage Beverages a week Not on file 11/18/2024 Have you ever felt you should CUT down on your d rinking? 0 11/18/2024 Have you been ANNOYED by people criticizing your drinking? 0 11/18/2024 Have you felt GUILTY about your drinking? 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 0 11/18/2024 CAGE Questionnaire Score 0 025 Comments No Sex and Gender Information Value Date Recorded Sex Assigned at Not on file Legal Sex Female 7:49 PM EDT Gender Identity Not on file Sexual Orientation Not on file documented as of this encounter Last Filed Vital Signs Vital Sign Reading Time Taken Comments Blood Pressure 111/69 11/21/2024 8:30 AM EDT Pulse 67 11/21/2024 8:30 AM EDT Temperature 36.3 C (97.3 F) 11/21/2024 8:30 AM EDT Respiratory Rate 16 11/21/2024 8:30 AM EDT Oxygen Saturation 94% 11/21/2024 8:30 AM EDT Inhaled Oxygen Concentration - - Weight 117 kg (257 lb 15 oz) 11/21/2024 6:00 AM EDT Height 175.3 cm (5' 9 ) 11/17/2024 12:11 PM EDT Body Mass Index 38.09 11/17/2024 12:11 PM EDT documented in this encounter Functional Status * Calculated C-SSRS Risk Score (Lifetime/Recent) Answer Date of Assessment Author No Risk Indicated 11/20/2024 8:00 AM EDT Ro Gallegos RN * Question Answer Date of Assessment Author 1. Wish to be (Past 1 Month) No 025 8:00 AM EDT Ro Barber RN 2. Non-Specific Active Suici sierar Thoughts (Past 1 Month) No 11/20/2024 8:00 AM EDT Vandana Barber RN 6. Suicidal Behavior (Lifetime) No 8:00 AM EDT Ro Barber RN documented as of this encounter Discharge Instructions * Discharge Instructions* Maggie Nguyen MD - 11/17/2024 3:36 PM EDT Call MD senior product consultant for [employer] service if: - you have a fever of 100.4 F or more - vaginal bleeding similar to a period - uncontrolled pain - difficulty with urination - persistent nausea/vomiting Follow up: Dr. Vinicius Love - [facility] [address], [address], [place] [address] documented in this encounter Medications at Time [...] nausea or vomiting. 10 tablet 1 11/14/2024 ondansetron ODT (Zofran-ODT) 4 MG disintegrating tablet Dissolve 1 tablet on the tongue every 6 hours as needed for nausea or vomiting. 20 tablet 11/21/2024 pantoprazole (Protonix) 40 MG EC tablet Take 1 tablet by mouth daily before breakfast. Do not crush, chew, or split. 30 tablet 2 11/21/2024 magnesium oxide (Mag-Ox) 400 (240 Mg) MG tablet Take 1 tablet by mouth every 4 hours for 1 dose. 1 tablet 11/21/2024 documented as of this encounter Miscellaneous Notes * Query Clarification Note - Vinicius Love MD - 11/21/2024 10:43 AM EDT Physician Clarification Please review the following and provide your response below. 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 * Nursing Note - Kim Black RN - 11/21/2024 9:11 AM EDT AVS discharge instructions printed and reviewed: s/s of infection, when to call doctor, how to reach doctor, follow up, discharge activity, home medications to continue, new medications. Educational attachments given and reviewed: new medications, abdominal pain. Meds to beds delivered. Patient receiving blood transfusion, will discharge home once complete. * Ismael Velázquez - Kim Black RN - 11/21/2024 8:57 AM EDT Images from the original note were not included. [id number] Pantoprazole WHY is this medicine prescribed? Pantoprazole is used to treat damage from gastroesophageal reflux disease (GERD), a condition in which backward flow of acid from the stomach causes heartburn and possible injury of the esophagus (the tube between the throat and stomach) in adults and children 5 years of age and older. Pantoprazoleis used to allow the esophagus to heal and prevent further damage to the esophagus in adults with GERD. It is also used to treat conditions where the stomach produces too much acid, such as Douglas-Dinero syndrome in adults. Pantoprazole is in a class of medications called proton-pump inhibitors. It works by decreasing the amount of acid made in the stomach. HOW should this medicine be used? Pantoprazole comes as a delayed-release (releases the medication in the intestine to prevent break-down of the medication by stomach acids) tablet and as delayed-release granules to take by mouth. The packets of delayed-release granules must be mixed with applesauce or apple juice and taken by mouth or given through a feeding tube. For the treatment and maintenance of GERD, pantoprazole is usually taken once a day. For the treatment of conditions where the stomach produces too much acid, pantoprazole is usually taken twice a day. The delayed-release tablets are usually taken with or without food, and the granules are usually taken 30 minutes before a meal. Take pantoprazole at around the same time(s) every day. Follow the directions on your prescription label carefully, and ask your doctor or pharmacist to explain any part you do not understand. Take pantoprazole exactly as directed. Donot take more or less of it or take it more often or for a longer period of time than prescribed byyour doctor. Swallow the tablets whole; do not split, chew, or crush them. If your doctor has prescribed the 40 mg tablet and it is too big for you to swallow, ask your doctor to prescribe two of the 20 mg tablets instead. To take the granules, open the packet and either sprinkle the granules onto one teaspoonful of applesauce or into a cup containing one teaspoonful of apple juice. Do not mix the granules with water, other liquids, or other foods. Use all of the granules in the packet; do not divide the granules into smaller doses. If you sprinkle the granules into apple juice, stir the mixture for 5 seconds. Swallow the mixture of applesauce or apple juice and medication right away (within 10 minutes) without chewing or crushing the granules. If you sprinkled the granules on applesauce, take several sips of water to wash the granules down to your stomach. If you sprinkled the granules into apple juice, rinse the cup once or twice with apple juice and drink the apple juice right away to be sure you swallowany leftover granules. Pantoprazole granules mixed with apple juice may be given through a feeding tube. If you have a feeding tube, ask your doctor how you should take pantoprazole. Continue to take pantoprazole even if you feel well. Do not stop taking pantoprazole without talking to your doctor. If your condition does not improve or gets worse, call your doctor. Ask your pharmacist or doctor for a copy of the cleat feeder's information for the patient. Are there OTHER USES for this medicine? This medication may be prescribed for other uses; ask your doctor or pharmacist for more information. What SPECIAL PRECAUTIONS should I follow? Before taking pantoprazole, ? tell your doctor and pharmacist if you are allergic to pantoprazole, dexlansoprazole (Dexilant), esomeprazole (Nexium, in Vimovo), lansoprazole (Prevacid), omeprazole (Prilosec, in Talicia, in Zegerid), rabeprazole (AcipHex), any other medications, or any of the ingredients in pantoprazole tablets or granules. Ask your pharmacist for a list of the ingredients. ? Some medications should not be taken with pantoprazole. Other medications may cause dosing changes or extra monitoring when taken with pantoprazole. Make sure you have discussed any medications youare currently taking or plan to take before starting pantoprazole with your doctor and pharmacist. Before starting, stopping, or changing any medications while taking pantoprazole, please get the advice of your doctor or pharmacist. ? The following nonprescription or herbal products may interact with pantoprazole: iron supplements. Be sure to let your doctor and pharmacist know that you are taking these medications before you start taking pantoprazole. Do not start any of these medications while taking pantoprazole without discussing with your healthcare provider. ? tell your doctor if you have or have ever had a low level of magnesium, calcium, or potassium in your blood; hypoparathyroidism (condition in which the body does not produce enough parathyroid hormone [PTH; a natural substance needed to control the amount of calcium in the blood]); low levels of vitamin B12 in your body; osteoporosis (a condition in which the bones become thin and weak and break easily); or an autoimmune disease (condition in which the body attacks its own organs causing swelling and loss of function) such as systemic lupus erythematosus. ? tell your doctor if you are , plan to become , or are . If you become while taking pantoprazole, call your doctor. ? talk to your doctor about the risks and benefits of taking pantoprazole if you are 70 years of age or older. Do not take this medication for a longer period of time than recommended by your doctor. What SPECIAL DIETARY instructions should I follow? Unless your doctor tells you otherwise, continue your normal diet. What should I do IF I FORGET to take a dose? Take the missed dose as soon as you remember it. However, if it is almost time for your next dose, skip the missed dose and continue your regular dosing schedule. Do not take a double dose to make upfor a missed dose. What SIDE EFFECTS can this medicine cause? Pantoprazole may cause side effects. Tell your doctor if any of these symptoms are severe or do notgo away: ? headache ? nausea ? vomiting ? gas ? joint pain ? diarrhea ? dizziness ? in men, difficulty achieving or maintaining an erection Some side effects may be serious. If you experience any of the following symptoms, call your doctorimmediately, or get emergency medical help: ? blistering, peeling, or bleeding skin; sores on the lips, nose, mouth, or genitals; swollen glands; shortness of breath; fever; or flu-like symptoms ? rash hives; itching; swelling of the eyes, face, lips, mouth, throat, or tongue; difficulty breathing or swallowing; or hoarseness ? irregular, fast, or pounding heartbeat muscle spasms; uncontrollable shaking of a part of the body; excessive tiredness; lightheadedness; dizziness; or seizures ? severe diarrhea with watery stools, stomach pain, or fever that does not go away ? new or worsening joint pain; rash on cheeks or arms that is sensitive to sunlight ? increased or decreased urination, blood in urine, fatigue, nausea, loss of appetite, fever, rash,or joint pain Pantoprazole may cause other side effects. Call your doctor if you have any unusual problems while taking this medication. People who take proton pump inhibitors such as pantoprazole may be more likely to fracture their wrists, hips, or spine than people who do not take one of these medications. People who take proton pump inhibitors may also develop fundic gland polyps (a type of growth on the stomach lining). These risks are highest in people who take high doses of one of these medications or take them for one yearor longer. Talk to your doctor about the risks of taking pantoprazole. If you experience a serious side effect, you or your doctor may send a report to the Food and Drug Administration's (FDA) MedWatch Adverse Event Reporting program online (https://www.fda.gov/Safety/MedWatch) or by phone ( ). What should I know about STORAGE and DISPOSAL of this medication? Keep this medication in the container it came in, tightly closed, and out of reach of children. Store it at room temperature and away from excess heat and moisture (not in the bathroom). Keep all medication out of sight and reach of children as many containers are not child-resistant. Always lock safety caps. Place the medication in a safe location - one that is up and away and out of their sight and reach. https://www.[employer].PAIEON Dispose of unneeded medications in a way so that pets, children, and other people cannot take them.Do not flush this medication down the toilet. Use a medicine take-back program. Talk to your pharmacist about take-back programs in your community. Visit the FDA's Safe Disposal of Medicines website h ttps://goo.gl/c4Rm4p for more information. What should I do in case of OVERDOSE? In case of overdose, call the poison control helpline at . Information is also available online at https://www.poisonhelp.org/help. If the victim has collapsed, had a seizure, has trouble breathing, or can't be awakened, immediately call emergency services at 301. What OTHER INFORMATION should I know? Keep all appointments with your doctor and the laboratory. Your doctor may order certain laboratorytests before and during your treatmen. Before having any laboratory test, tell your doctor and the laboratory personnel that you are taking pantoprazole. Do not let anyone else take your medication. Ask your pharmacist any questions you have about refilling your prescription. Keep a written list of all of the prescription and nonprescription (fhln-[id number]) medicines, vitamins, minerals, and dietary supplements you are taking. Bring this list with you each time you visit a doctor or if you are admitted to the hospital. You should carry the list with you in case of melanie rgencies. Brand Name(s): ? Protonix?? also available generically This report on medications is for your information only, and is not considered individual patient advice. Because of the changing nature of drug information, please consult your physician or pharmacist about specific clinical use. The [place] [employer] represents that the information provided hereunder was formulated with a reasonable standard of care, and in conformity with professional standards in the field. The [place] [employer] makes no representations or warranties, express or implied, including, but not limited to, any implied warranty of merchantability and/or fitness for a particular purpose, with respect to such information and specifically disclaims all such warranties. Users are advised that decisions regarding drug therapy are complex medical decisions requiring the independent, informed decision of an appropriate health child care leader, and the information is provided for informational purposes only. The entire monograph for a drug should be reviewed for a thorough understanding of the drug's actions, uses and side effects. The [employer] [employer] does not endorse or recommend the use of any drug.The information is not a substitute for medical care. AHFS?? Patient Medication Information?. ?? Copyright, 2023. The [place] [employer]??, [address], [address], [place], [place]. All Rights Reserved. Duplication for commercial use must be authorized by [facility]. Selected Revisions: January 24, 2023. AHFS?? Patient Medication Information?. ?? Copyright, 2024 * Ismael OnFHIR - Kim Black RN - 11/21/2024 8:57 AM EDT Images from the original note were not included. [id number] Ondansetron WHY is this medicine prescribed? Ondansetron is used to prevent nausea and vomiting caused by cancer chemotherapy, radiation therapy, and surgery. Ondansetron is in a class of medications called serotonin 5-HT3 receptor antagonists.It works by blocking the action of serotonin, a natural substance that may cause nausea and vomiting. HOW should this medicine be used? Ondansetron comes as a tablet, a rapidly disintegrating (dissolving) tablet, film, and an oral solution (liquid) to take by mouth. The first dose of ondansetron is usually taken 30 minutes before thestart of chemotherapy, 1 to 2 hours before the start of radiation therapy, or 1 hour before surgery. Additional doses are sometimes taken one to three times a day during chemotherapy or radiation therapy and for 1 to 2 days after the end of treatment. Follow the directions on your prescription label carefully, and ask your doctor or pharmacist to explain any part you do not understand. Take ondans etron exactly as directed. Do not take more or less of it or take it more often than prescribed by your doctor. Do not chew the film. If you are taking the rapidly disintegrating tablet, remove the tablet from the package just beforeyou take your dose. To open the package, do not try to push the tablet through the foil backing of the blister. Instead, use dry hands to peel back the foil backing. Gently remove the tablet and immediately place the tablet on the top of your tongue. The tablet will dissolve in a few seconds and can be swallowed with saliva. Are there OTHER USES for this medicine? This medication may be prescribed for other uses. Ask your doctor or pharmacist for more information. What SPECIAL PRECAUTIONS should I follow? Before taking ondansetron, ? tell your doctor and pharmacist if you are allergic to ondansetron, alosetron (Lotronex), dolasetron (Anzemet), granisetron (Kytril), palonosetron (Aloxi, in Akynzeo), any other medications, or anyof the ingredients in ondansetron products. Ask your pharmacist for a list of the ingredients. ? tell your doctor if you are receiving apomorphine (Apokyn). Your doctor will probably tell you not to take ondansetron if you are receiving this medication. ? some medications should not be taken with ondansetron. Other medications may cause dosing changesor extra monitoring when taken with ondansetron. Make sure you have discussed any medications you are currently taking or plan to take before starting ondansetron with your doctor and pharmacist. Before starting, stopping, or changing any medications while taking ondansetron, please get the advice of your doctor or pharmacist. ? tell your doctor if you or anyone in your family has or has ever had long QT syndrome (condition that increases the risk of developing an irregular heartbeat that may cause fainting or sudden ), or another type of irregular heart beat or heart rhythm problem, or if you have or have ever had low blood levels of magnesium or potassium in your blood, heart failure (HF; condition in which the heart cannot pump enough blood to other parts of the body), or liver disease. ? tell your doctor if you are , plan to become , or are breast- feeding. If you become while taking ondansetron, call your doctor. ? if you have phenylketonuria (PKU, an inherited condition in which a special diet must be followedto prevent damage to your brain that can cause severe intellectual disability), you should know that the orally disintegrating tablets contain aspartame that forms phenylalanine. What SPECIAL DIETARY instructions should I follow? Unless your doctor tells you otherwise, continue your usual diet. What should I do IF I FORGET to take a dose? Take the missed dose as soon as you remember it. However, if it is almost time for the next dose, skip the missed dose and continue your regular dosing schedule. Do not take a double dose to make up for a missed one. What SIDE EFFECTS can this medicine cause? Some side effects can be serious. If you experience any of the following symptoms, call your doctorimmediately or seek emergency medical treatment: ? blurred vision or vision loss ? rash ? hives ? itching ? swelling of the eyes, face, lips, tongue, throat, hands, feet, ankles, or lower legs ? hoarseness ? difficulty breathing or swallowing ? chest pain ? shortness of breath ? dizziness, light-headedness, or fainting ? fast, slow or irregular heartbeat ? agitation ? hallucinations (seeing things or hearing voices that do not exist) ? fever ? excessive sweating ? confusion ? nausea, vomiting, or diarrhea ? loss of coordination ? stiff or twitching muscles ? seizures ? coma (loss of consciousness) Ondansetron may cause other side effects. Call your doctor if you have any unusual problems while you are taking this medication. What should I know about STORAGE and DISPOSAL of this medication? Keep this medication in the container it came in, tightly closed, and out of reach of children. Store the tablets and rapidly disintegrating tablets away from light, at room temperature or in the refrigerator. Store the solution in the bottle upright at room temperature and away from light, excess heat, and moisture (not in the bathroom). Keep all medication out of sight and reach of children as many containers are not child-resistant. Always lock safety caps. Place the medication in a safe location - one that is up and away and out of their sight and reach. https://www.[employer] [employer] Dispose of unneeded medications in a way so that pets, children, and other people cannot take them.Do not flush this medication down the toilet. Use a medicine take-back program. Talk to your pharmacist about take-back programs in your community. Visit the FDA's Safe Disposal of Medicines website h ttps://goo.gl/c4Rm4p for more information. What should I do in case of OVERDOSE? In case of overdose, call the poison control helpline at . Information is also available online at https://www.poisonhelp.org/help. If the victim has collapsed, had a seizure, has trouble breathing, or can't be awakened, immediately call emergency services at 539. Symptoms of overdose may include: ? sudden loss of vision for a short time ? dizziness or lightheadedness ? fainting ? constipation ? irregular heart beat What OTHER INFORMATION should I know? Keep all appointments with your doctor. Do not let anyone else take your medication. Ask your pharmacist any questions you have about refilling your prescription. Keep a written list of all of the prescription and nonprescription (rija-jao-qowfwdv) medicines, vitamins, minerals, and dietary supplements you are taking. Bring this list with you each time you visit a doctor or if you are admitted to the hospital. You should carry the list with you in case of melanie rgencies. Brand Name(s): ? Zofran?? ? Zofran?? ODT ? Zuplenz?? also available generically This report on medications is for your information only, and is not considered individual patient advice. Because of the changing nature of drug information, please consult your physician or pharmacist about specific clinical use. The [place] [employer] represents that the information provided hereunder was formulated with a reasonable standard of care, and in conformity with professional standards in the field. The [place] [employer] makes no representations or warranties, express or implied, including, but not limited to, any implied warranty of merchantability and/or fitness for a particular purpose, with respect to such information and specifically disclaims all such warranties. Users are advised that decisions regarding drug therapy are complex medical decisions requiring the independent, informed decision of an appropriate health child care leader, and the information is provided for informational purposes only. The entire monograph for a drug should be reviewed for a thorough understanding of the drug's actions, uses and side effects. The [employer] [employer] does not endorse or recommend the use of any drug.The information is not a substitute for medical care. AHFS?? Patient Medication Information?. ?? Copyright, 2023. The [employer]??, [address], [address], [place], [place]. All Rights Reserved. Duplication for commercial use must be authorized by [facility]. Selected Revisions: September 29, 2023. AHFS?? Patient Medication Information?. ?? Copyright, 2024 * [facility] - Kim Black RN - 11/21/2024 8:57 AM EDT Images from the original note were not included. [id number] Magnesium Oxide WHY is this medicine prescribed? Magnesium is an element your body needs to function normally. Magnesium oxide may be used for different reasons. Some people use it as an antacid to relieve heartburn, sour stomach, or acid indigestion. Magnesium oxide also may be used as a laxative for short-term, rapid emptying of the bowel (before surgery, for example). It should not be used repeatedly. Magnesium oxide also is used as a dietary supplement when the amount of magnesium in the diet is not enough. Magnesium oxide is available without a prescription. HOW should this medicine be used? Magnesium oxide comes as a tablet and capsule to take by mouth. It usually is taken one to four times daily depending on which brand is used and what condition you have. Follow the directions on the package or on your prescription label carefully, and ask your doctor or pharmacist to explain any part you do not understand. Take magnesium oxide exactly as directed. Do not take more or less of it or take it more often than prescribed by your doctor. Take any other medicine and magnesium oxide at least 2 hours apart. If you are using magnesium oxide as a laxative, take it with a full glass (8 ounces [240 milliliters]) of cold water or fruit juice. Do not take a dose late in the day on an empty stomach. Do not take magnesium oxide as an antacid for longer than 2 weeks unless your doctor tells you to. Do not take magnesium oxide as a laxative for more than 1 week unless your doctor tells you to. Are there OTHER USES for this medicine? This medication is sometimes prescribed for other uses; ask your doctor or pharmacist for more information. What SPECIAL PRECAUTIONS should I follow? Before taking magnesium oxide, ? tell your doctor and pharmacist if you are allergic to magnesium oxide, other antacids or laxatives, or any other drugs. ? tell your doctor and pharmacist what prescription and nonprescription medications, vitamins, nutritional supplements, and herbal products you are taking or plan to take while taking magnesium oxide. Your doctor may need to change the doses of your medications or monitor you carefully for side effects. ? the following nonprescription products may interact with magnesium oxide: aspirin, cimetidine (Tagamet), ranitidine (Zantac). Be sure to let your doctor and pharmacist know that you are taking these medications before you start taking magnesium oxide. Do not start any of these medications while taking magnesium oxide without discussing with your healthcare provider. ? tell your doctor if you have or have ever had heart, kidney, liver, or intestinal disease or highblood pressure. ? tell your doctor if you are , plan to become , or are breast- feeding. If you become while taking magnesium oxide, call your doctor immediately. ? tell your doctor if you are on a low-salt, low-sugar, or other special diet. What should I do IF I FORGET to take a dose? If you are taking magnesium oxide on a regular schedule, take the missed dose as soon you remember it. However, if it is almost time for the next dose, skip the missed dose and continue your regular dosing schedule. Do not take a double dose to make up for a missed one. What SIDE EFFECTS can this medicine cause? If you experience any of the following symptoms, call your doctor immediately: ? rash or hives ? itching ? dizziness or lightheadedness ? mood or mental changes ? unusual tiredness ? weakness ? nausea ? vomiting If you experience a serious side effect, you or your doctor may send a report to the Food and Drug Administration's (FDA) MedWatch Adverse Event Reporting program online (https://www.fda.gov/Safety/MedWatch) or by phone ( ). What should I know about STORAGE and DISPOSAL of this medication? Keep this medication in the container it came in, tightly closed, and out of reach of children. Store it at room temperature and away from excess heat and moisture (not in the bathroom). Dispose of unneeded medications in a way so that pets, children, and other people cannot take them.Do not flush this medication down the toilet. Use a medicine take-back program. Talk to your pharmacist about take-back programs in your community. Visit the FDA's Safe Disposal of Medicines website h ttps://goo.gl/c4Rm4p for more information. Keep all medication out of sight and reach of children as many containers are not child-resistant. Always lock safety caps. Place the medication in a safe location - one that is up and away and out of their sight and reach. https://www.upandaway.org What should I do in case of OVERDOSE? In case of overdose, call the poison control helpline at . Information is also available online at https://www.poisonhelp.org/help. If the victim has collapsed, had a seizure, has trouble breathing, or can't be awakened, immediately call emergency services at 911. What OTHER INFORMATION should I know? If this medicine has been prescribed for you, keep all appointments with your doctor so that your response to magnesium can be checked. Do not let anyone else take your medicine. Keep a written list of all of the prescription and nonprescription (xuoa-xee-wbsrayt) medicines, vitamins, minerals, and dietary supplements you are taking. Bring this list with you each time you visit a doctor or if you are admitted to the hospital. You should carry the list with you in case of melanie rgencies. Brand Name(s): ? Mag-Ox?? ? Maox?? ? Uro-Mag?? also available generically This report on medications is for your information only, and is not considered individual patient advice. Because of the changing nature of drug information, please consult your physician or pharmacist about specific clinical use. The [place] [employer] represents that the information provided hereunder was formulated with a reasonable standard of care, and in conformity with professional standards in the field. The [employer] [employer] makes no representations or warranties, express or implied, including, but not limited to, any implied warranty of merchantability and/or fitness for a particular purpose, with respect to such information and specifically disclaims all such warranties. Users are advised that decisions regarding drug therapy are complex medical decisions requiring the independent, informed decision of an appropriate health child care leader, and the information is provided for informational purposes only. The entire monograph for a drug should be reviewed for a thorough understanding of the drug's actions, uses and side effects. The [employer] [employer] does not endorse or recommend the use of any drug.The information is not a substitute for medical care. AHFS?? Patient Medication Information?. ?? Copyright, 2023. The [employer]??, [address], [address], [place], [place]. All Rights Reserved. Duplication for commercial use must be authorized by [facility]. Selected Revisions: August 30, 2023. AHFS?? Patient Medication Information?. ?? Copyright, 2024 * [facility] Kim [facility] - 11/21/2024 8:56 AM EDT Images from the original note were not included. [id number] Abdominal Pain Abdominal pain means pain in the stomach or belly area. Everyone has this kind of pain from time totime. In many cases, it goes away on its own. Some types of abdominal pain can be from a serious problem. One example is appendicitis. So it?s important to know when to get help. Causes of abdominal pain There are many causes of abdominal pain. Common causes in adults include: ? Constipation, diarrhea, or gas ? Stomach and intestine inflammation from a virus or bacteria (gastroenteritis) ? Stomach acid flowing back up into the esophagus (acid reflux) ? Severe acid reflux, called gastroesophageal reflux disease (GERD) ? A sore in the lining of the stomach or small intestine (peptic ulcer) ? Inflammation of the gallbladder, liver, or pancreas ? Gallstones or kidney stones ? Appendicitis ? Intestinal blockage ? An internal organ pushing through a muscle or other tissue (hernia) ? Urinary tract infections ? Menstrual cramps ? Fibroids in the uterus ? Ovarian cysts ? Pelvic inflammatory disease in women ? Endometriosis ? Crohn's disease ? Ulcerative colitis ? Irritable bowel syndrome Diagnosing the cause of abdominal pain Your healthcare provider will give you a physical exam. This is to help find the cause of your pain. If needed, you'll have tests. Belly pain has many possible causes. So it may take a little time tofind the reason for your pain. Give details about the type of pain you feel. Tell your healthcare provider if it's sharp or dull. Tell them where and when you feel the pain. Tell them what makes it better or worse. And tell them if you have other symptoms such as: ? Fever ? Tiredness ? Upset stomach (nausea) ? Vomiting ? Changes in bathroom habits ? Blood in the stool or black, tarry stool ? Unexpected weight loss Tell your healthcare provider: ? If you have a family history of stomach or intestinal problems or cancer ? About your alcohol use and any illegal drug use ? All medicines you take, both prescription and kves-xxe-sfzjzet ? What vitamins, herbs, and other supplements you take Treating abdominal pain Some causes of pain need emergency medical care right away. These include appendicitis or a bowel blockage. Other problems can be treated with rest, fluids, or medicines. Your healthcare provider cangive you instructions. You may need treatment or self-care based on what's causing your pain. If you have vomiting or diarrhea, sip water or other clear fluids. When you're ready to eat solid foods again, start lightly. Eat small amounts of jvyr-da-vqddaz, low-fat foods. These include applesauce, toast, or crackers. Call 911 Call 911 right away if you: ? Can?t pass stool and are vomiting ? Are vomiting blood ? Have bloody diarrhea or black, tarry diarrhea ? Have chest, neck, or shoulder pain ? Feel like you might pass out (faint) ? Have pain in your shoulder blades and nausea ? Have sudden, severe belly pain ? Have new, severe pain unlike any you've felt before ? Have a belly that is rigid, hard, and hurts to touch When to call the healthcare provider Call your healthcare provider or seek medical care right away if you have any of these: ? Pain that's worse or not getting better ? Bloating that's worse or not getting better ? Diarrhea that's worse or not getting better ? Fever of 100.4??F (38??C) or higher, or as advised ? Weight loss for no reason ? Continued lack of appetite ? Blood in your stool How to prevent abdominal pain Here are some tips to help prevent abdominal pain: ? Eat smaller amounts of food at each meal. ? >Don't eat greasy, fried, or other high-fat foods. ? Don't eat foods that give you gas. ? Exercise regularly. ? Drink plenty of fluids. To help prevent GERD symptoms: ? Quit smoking. ? Reduce alcohol and foods that increase stomach acid. ? Don't use aspirin or nonsteroidal anti-inflammatory drugs (NSAIDs). ? Lose excess weight. ? Finish eating at least 2 hours before you go to bed or lie down. ? Raise the head of your bed. Last Reviewed Date: 2023 00:00:00 ?? [id number] The [employer]. All rights reserved. This information is not intended as a substitute for professional medical care. Always follow your healthcare professional's instructions. * Discharge Instr - Other Orders - Kim Black RN - 11/21/2024 8:56 AM EDT If you need to contact your doctors after hours, please call [phone] and ask for the doctor brittany for [facility] Oncology. * Discharge Summary - Maggie Nguyen MD - 11/21/2024 8:21 AM EDT Images from the original note were not included. DISCHARGE SUMMARY Hospitalization Admit Date/Time: 11/17/2024 1:26 PM Admitting Attending: Vinicius Love Discharge Date: 11/21/2024 Discharge Attending Physician: Vinicius Love MD PCP name and Address: Pcp, Sal[facility] [address] Referring provider name and address: No referring provider defined for this encounter. Chief Concern, Brief History of Present Illness, and Hospital Course Radha Aparicio is a 44 y.o. with high grade endometroid adenocarcinoma who presented with n/v and loose stools and was admitted on 11/17. RUQ US showed gallbladder thickening concerning for cholecystitis. Patient was made NPO and underwent [place] embolization of liver mass and liver mass biopsy on 11/18 with IR. See IR note for full details. Final pathology pending at time of discharge. HIDA scanwas performed on 11/19, which demonstrated abnormal gallbladder motor function with abnormal ejection fraction, supporting diagnosis of chronic cholecystitis or biliary dyskinesia. On 11/20, she developed a fever of 100.9. She was anemic with a hemoglobin of 6.7, so she received 1 unit of blood. Home medications were restarted. Upon discharge, patient was tolerating po, ambulating and voiding spontaneously. She was discharged to home on HD#5 and scheduled to follow up in clinic with Vinicius Jacob MD in 1 week. Surgeries and Procedures Tustin embolization of liver mass with liver mass biopsy with Interventional Radiology Medication List .. acetaminophen 500 MG tablet Commonly known as: Tylenol Take 1 tablet by mouth every 6 hours. methocarbamol 500 MG tablet Commonly known as: Robaxin Take 1 tablet by mouth 4 times a day. * ondansetron ODT 4 MG disintegrating tablet Commonly known as: Zofran-ODT Dissolve 1 tablet on the tongue every 6 hours as needed for nausea or vomiting. * ondansetron ODT 4 MG disintegrating tablet Commonly known as: Zofran-ODT Dissolve 1 tablet on the tongue every 6 hours as needed for nausea or vomiting. pantoprazole 40 MG EC tablet Commonly known as: Protonix Take 1 tablet by mouth daily before breakfast. Do not crush, chew, or split. * This list has 2 medication(s) that are the same as other medications prescribed for you. Read thedirections carefully, and ask your doctor or other care provider to review them with you. . magnesium oxide 400 (240 Mg) MG tablet Commonly known as: Mag-Ox Take 1 tablet by mouth every 4 hours for 1 dose. Ask about: Should I take this medication? Where to Get Your Medications These medications were sent to [facility] - [place], [place] - [address] 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 Vinicius Love - [facility] [address], [address], [place] [address] Outpatient Follow-Up Future Appointments Date Time Provider Department Center 12/04/2024 10:00 AM Vinicius Love MD [facility] Test Results Pending At Discharge Pending Labs Order Current Status Prepare Leukocyte Reduced RBC: 1 Units Preliminary result Prepare Leukocyte Reduced RBC: 2 Units Preliminary result Discharge Disposition/Condition Disposition: Home Condition: Stable (s/sx potential problems absent or manageable) I spent < 30 minutes of patient care and instruction time in preparation for this discharge. Maggie Nguyen MD PGY3 Obstetrics and Gynecology Cosigned by Vinicius Love MD at 11/24/2024 8:21 AM EDT Associated attestation - Vinicius Love MD - 11/24/2024 8:21 AM EDT I saw and evaluated the patient with the resident/fellow. I discussed the case with the resident/fellow and agree with the findings and plan as documented. * Care Plan - Genny Ellis RN - 11/21/2024 1:32 AM EDT Problem: Adult Inpatient Plan of Care Goal: Plan of Care Review Outcome: Ongoing, Progressing Flowsheets Taken 11/21/2024 0132 Progress: no change Plan of Care Reviewed With: patient Taken 11/20/2024 0019 Outcome Evaluation: ongoing Goal: Patient-Specific Goal (Individualized) Outcome: Ongoing, Progressing Flowsheets (Taken 11/20/20242019) Patient/Family-Specific Goals (Include Timeframe): Patient will remain free from fallls and have adequate pain control throughout shift Individualized Care Needs: ongoing Anxieties, Fears or Concerns: none stated Goal: Absence of Hospital-Acquired Illness or Injury Outcome: Ongoing, Progressing Goal: Optimal Comfort and Wellbeing Outcome: Ongoing, Progressing Problem: Skin Injury Risk Increased Goal: Skin Health and Integrity Outcome: Ongoing, Progressing * Progress Notes - Deysi Pinedo MD - 11/20/2024 7:10 PM EDT Gynecologic Oncology Daily Progress Note Subjective Pain well controlled on PO pain medications. Tolerating PO, no nausea or vomiting. Passing gas, voiding spontaneously. Denies fever, chills, SOA, chest pain, nausea/vomiting. Review of Systems 10-point ROS performed and negative except as per HPI. Objective Temp: [36.4 ??C (97.6 ??F)-38.3 ??C (100.9 ??F)] 36.5 ??C (97.7 ??F) Heart Rate: [69-97] 77 Resp: [16-18] 18 BP: (103-136)/(58-84) 109/75 Vitals: 11/20/24 1514 BP: 109/75 Pulse: 77 Resp: 18 Temp: 36.5 ??C (97.7 ??F) SpO2: 94% I/O last 3 completed shifts: In: 1071.3 (9.2 mL/kg) [P.O.:490; Blood:581.3] Out: 0 (0 mL/kg) Weight: 116.3 kg Physical Exam: GENERAL: Alert, well-appearing, in NAD CARDIOVASCULAR: No peripheral edema RESPIRATORY: normal respiratory effort on room air GASTROINTESTINAL: Soft, non tender, non-distended, no rebound or guarding. GENITOURINARY: Deferred SKIN: Warm, dry, well-perfused. PSYCHIATRIC: AO x3, with appropriate affect, normal thought processes EXTREMITIES: Symmetric. No peripheral edema. Labs: Lab Results Component Value Date WBC 15.25 (H) 11/20/2024 HGB 8.5 (L) 11/20/2024 HCT 25.5 (L) 11/20/2024 MCV 83 11/20/2024 PLT 292 11/20/2024 NEUTROABS 10.04 (H) 11/17/2024 GLUCOSE 119 (H) 11/20/2024 BUN 13 11/20/2024 CREATININE 0.79 11/20/2024 NA 135 (L) 11/20/2024 K 3.8 11/20/2024 CL 103 11/20/2024 CO2 20 (L) 11/20/2024 MG 1.7 (L) 11/20/2024 PHOS 3.6 11/14/2024 CALCIUM 8.1 (L) 11/20/2024 Imaging: Assessment/Plan Radha Aparicio is a 44 y.o. with high grade endometrioid adenocarcinoma and persistent n/v/diarrhea and ab pain c/f cholecystitis. # n/v, diarrhea # ab pain # GB thickening - pt reports doing well on pain and nausea regimen since discharge 11/12 - n/v started 11/17 am with associated diarrhea - Labs H [id number] P [id number] W 48-0-31-15-13 Lipase 14 - RUQ US 11/17: cholelithiasis w/ gallbladder wall thickening c/f cholecystitis. Redemonstrated largeintraparenchymal liver mass. Few punctate nonobstructive renal calculi in R kidney, no hydro - PE: +Crownpoint sign, no signs of acute peritonitis - GS consult: rec HIDA scan but pt may require partial cholecystectomy, no abx currently but if fever develops consider cefoxitin - HIDA 11/19: no acute cholecystitis, abnormal gallbladder motor function w/ abnormal EF, chronic choleycystitis Plan - monitor WBC and if fever develops consider cefoxitin - gen surg following, reach out about HIDA results and plan # Transaminitis # post-embolization syndrome - elevated AST/ALT one day after liver embolization and biopsy with IR on 11/18 - AST [phone] ALT [phone] - T. Bili 0.7-0.7 - discussed with IR 11/19 who expect elevated LFTs due to post embolization syndrome, recommend no tylenol and getting T. Bili if she becomes jaundiced # High grade endometroid adenocarcinoma - Diagnosed 2017 after DIONNA/BSO, liver biopsy, tumor debulking with Dr. Love for new pelvic mass with associated liver and splenic lesions -- pathology of pelvic mass and liver biopsy both consistent with high grade endometrioid adenocarcinoma - Completed 1 year of chemotherapy (carbo/tax per chart review) with Dr. Veloz at [facility] - Lost to follow up [...] discussed biopsy oflesions and discussion with Dr. Love's office, unsure if this has been completed [...] several large liver lesions (right dome -- [id number] (enlarged from 4.7 x 4.2) & 10.5 [...] conclusion of chemotherapy) - Care transferred to [facility] 11/10, s/p cefoxitin (11/08-11/10) - s/p liver embolization and biopsy 11/18 - liver biopsy 11/18 positive for malignant carcinoma # FEN/PPX - GIS/HLIV - SCDs/pLov - Replete electrolytes PRN Dispo: Discharge today Please message on-call [facility] resident via [employer] Secure Chat or page [phone] for questions or concerns regarding this patient's care. Deysi Pinedo MD Obstetrics & Gynecology, PGY-2 Cosigned by Vinicius Love MD at 11/21/2024 2:31 PM EDT Associated attestation - Vinicius Love MD - 11/21/2024 2:31 PM EDT I saw and evaluated the patient with the resident/fellow. I discussed the case with the resident/fellow and agree with the findings and plan as documented. * Care Plan - Ro Barber RN - 11/20/2024 1:16 PM EDT Problem: Adult Inpatient Plan of Care Goal: Plan of Care Review Outcome: Ongoing, Progressing Flowsheets (Taken 11/20/2024 0019 by Genny Ellis, INOCENCIA) Progress: no change Outcome Evaluation: ongoing Plan of Care Reviewed With: patient Goal: Patient-Specific Goal (Individualized) Outcome: Ongoing, Progressing Flowsheets (Taken 11/20/2024 0800) Patient/Family-Specific Goals (Include Timeframe): Pt will have pain control throughout shift Individualized Care Needs: ongoing Anxieties, Fears or Concerns: pain control Goal: Absence of Hospital-Acquired Illness or Injury Outcome: Ongoing, Progressing Goal: Optimal Comfort and Wellbeing Outcome: Ongoing, Progressing Problem: Skin Injury Risk Increased Goal: Skin Health and Integrity Outcome: Ongoing, Progressing * Progress Notes - Radha Langston RN - 11/20/2024 12:19 PM EDT Case Management Discharge Note Radha Aparicio 44 y.o. female CSN: [id number] Admission: 11/17/2024 1:26 PM Primary Problem: RUQ abdominal pain Primary Casing Puller: Primary Caregiver: Self Assistance Available at Discharge: aunt Clara and Jennifer Current Outpatient/Agency/Support Group: clinic(s) Availability of Care Givers (#Hours): 24 hours Family/Casing Puller(s) Willingness Assessed to care for patient at home: Yes Family/Casing Puller(s) Readiness Assessed to care for patient at home: Yes Housing Circumstances-Z Codes: Housing Circumstances (select all that apply): Low Income (101-300% Federal Poverty Guidlines) - Z596 Discharge Facility/Level of Care Needs: Discharge Facility/Level of Care Needs: 1-Home or Self Care Patient's Choice of Community Agency(s): [facility] [place] [facility] Patient/Family Anticipated Services at Transition: Patient/Family Anticipated Services at Transition: outpatient care DME/Equipment Needed after Discharge: Equipment Currently Used at Home: none Equipment Needed After Discharge: none Readmission Within the Last 30 Days: Readmission Within the Last 30 Days: planned readmission Follow-up: [facility] team to schedule Discharge Transportation: reports her aunt Transportation Anticipated: family or friend will provide Transportation Home at Discharge: Family/Friend will Provide Follow Up Transport: reports aunt Transportation Needed to Follow up Appoinments: Family/Friend will Provide Additional Comments: per team, may discharge today to home pending lab results. Met with patient and no needs reported. Reports her aunt is here today and will provide transport and home assistance. [id number] enrollment complete. Radha Langston RN * Significant Event - Sharan Aleman MD - 11/20/2024 9:57 AM EDT EGS interim summary: PT seen this morning after HIDA scan complete with finding of biliary dyskinesia. However patient without biliary colic symptoms, tolerating diet, no history of abdominal pain prior to this current event. No indication for surgery at this time. No need to FU just contact with questions/problems. Sharan Aleman MD * Hospital Course - Maggie Nguyen MD - 11/20/2024 9:26 AM EDT Radha Aparicio is a 44 y.o. with high grade endometroid adenocarcinoma who presented with n/v and loose stools and was admitted on 11/17. RUQ US showed gallbladder thickening concerning for cholecystitis. Patient was made NPO and underwent [place] embolization of liver mass and liver mass biopsy on 11/18 with IR. See IR note for full details. Final pathology pending at time of discharge. HIDA scanwas performed on 11/19, which demonstrated abnormal gallbladder motor function with abnormal ejection fraction, supporting diagnosis of chronic cholecystitis or biliary dyskinesia. On 11/20, she developed a fever of 100.9. She was anemic with a hemoglobin of 6.7, so she received 1 unit of blood. Home medications were restarted. Upon discharge, patient was tolerating po, ambulating and voiding spontaneously. She was discharged to home on HD#5 and scheduled to follow up in clinic with Vinicius Jacob MD in 1 week. * Progress Notes - Deysi Pinedo MD - 11/20/2024 4:50 AM EDT Gynecologic Oncology Daily Progress Note Subjective Pain well controlled on PO pain medications. Tolerating PO, no nausea or vomiting. Passing gas, voiding spontaneously. Denies fever, chills, SOA, chest pain, nausea/vomiting. Review of Systems 10-point ROS performed and negative except as per HPI. Objective Temp: [36.4 ??C (97.5 ??F)-36.7 ??C (98.1 ??F)] 36.7 ??C (98.1 ??F) Heart Rate: [60-96] 96 Resp: [17-20] 18 BP: (126-140)/(71-83) 126/71 Vitals: 11/19/24 1806 BP: 126/71 Pulse: 96 Resp: 18 Temp: 36.7 ??C (98.1 ??F) SpO2: 94% I/O last 3 completed shifts: In: 540 (4.7 mL/kg) [P.O.:240; Blood:300] Out: 0 (0 mL/kg) Weight: 114.5 kg Physical Exam: GENERAL: Alert, well-appearing, in NAD CARDIOVASCULAR: No peripheral edema RESPIRATORY: normal respiratory effort on room air GASTROINTESTINAL: Soft, non tender, non-distended, no rebound or guarding. GENITOURINARY: Deferred SKIN: Warm, dry, well-perfused. PSYCHIATRIC: AO x3, with appropriate affect, normal thought processes EXTREMITIES: Symmetric. No peripheral edema. Labs: Lab Results Component Value Date WBC 10.74 (H) 11/19/2024 HGB 7.8 (L) 11/19/2024 HCT 24.5 (L) 11/19/2024 MCV 85 11/19/2024 PLT 249 11/19/2024 NEUTROABS 10.04 (H) 11/17/2024 GLUCOSE 118 (H) 11/19/2024 BUN 11 11/19/2024 CREATININE 0.79 11/19/2024 NA 139 11/19/2024 K 4.4 11/19/2024 CL 104 11/19/2024 CO2 20 (L) 11/19/2024 MG 2.0 11/19/2024 PHOS 3.6 11/14/2024 CALCIUM 8.4 (L) 11/19/2024 Imaging: NM Hepatobiliary Scan w Pharm Challenge Result Date: 11/19/2024 Impression: Patent cystic duct. No acute cholecystitis. Patent common bile duct. Objectively, abnormal gallbladder motor function with abnormal ejection fraction in response to Ensure Plus challenge,supporting diagnosis of chronic cholecystitis or biliary dyskinesia in this clinical setting. CRITICAL RESULT: No. COMMUNICATION: Per this written report. By electronically signing this report, I, the attending physician, attest that I have personally reviewed the images/data for the above examination(s) and agree with the final edited report. Drafted by John Clark MD on 11/19/2024 4:35 PM Final report signed by Salvador Mcdonald MD on 11/19/2024 5:29 PM Assessment/Plan Radha Aparicio is a 44 y.o. with high grade endometrioid adenocarcinoma and persistent n/v/diarrhea and ab pain c/f cholecystitis. # n/v, diarrhea # ab pain # GB thickening - pt reports doing well on pain and nausea regimen since discharge 11/12 - n/v started 98 am with associated diarrhea - Labs H [id number] P 308-220-249 W 12-9-11 Lipase 14 - RUQ US 11/17: cholelithiasis w/ gallbladder wall thickening c/f cholecystitis. Redemonstrated largeintraparenchymal liver mass. Few punctate nonobstructive renal calculi in R kidney, no hydro - PE: +Crownpoint sign, no signs of acute peritonitis - GS consult: rec HIDA scan but pt may require partial cholecystectomy, no abx currently but if fever develops consider cefoxitin - HIDA 11/19: no acute cholecystitis, abnormal gallbladder motor function w/ abnormal EF, chronic choleycystitis Plan - monitor WBC and if fever develops consider cefoxitin - gen surg following, reach out about HIDA results and plan # Transaminitis # post-embolization syndrome - elevated AST/ALT one day after liver embolization and biopsy with IR on 11/18 - AST 1,474-701 ALT 321-326 - T. Bili 0.7-0.7 - discussed with IR 11/19 who expect elevated LFTs due to post embolization syndrome, recommend no tylenol and getting T. Bili if she becomes jaundiced # High grade endometroid adenocarcinoma - Diagnosed 2018 after DIONNA/BSO, liver biopsy, tumor debulking with Dr. Love for new pelvic mass with associated liver and splenic lesions -- pathology of pelvic mass and liver biopsy both consistent with high grade endometrioid adenocarcinoma - Completed 1 year of chemotherapy (carbo/tax per chart review) with Dr. Veloz at [facility] - Lost to follow up [...] discussed biopsy oflesions and discussion with Dr. Love's office, unsure if this has been completed [...] several large liver lesions (right dome -- [id number] (enlarged from 4.7 x 4.2) & 10.5 [...] transferred to [facility] 11/10, s/p cefoxitin (11/08-11/10) - s/p liver embolization and biopsy 11/18 Plan: - f/up biopsy results # FEN/PPX - GIS/HLIV - SCDs/pLov - Replete electrolytes PRN Dispo: Continue inpatient management. Please message on-call [facility] resident via [employer] Secure Chat or page [phone] for questions or concerns regarding this patient's care. Deysi Pinedo MD Obstetrics & Gynecology, PGY-2 Cosigned by Vinicius Love MD at 11/21/2024 2:31 PM EDT Associated attestation - Vinicius Love MD - 11/21/2024 2:31 PM EDT I saw and evaluated the patient with the resident/fellow. I discussed the case with the resident/fellow and agree with the findings and plan as documented. * Care Plan - Genny Ellis RN - 11/20/2024 12:21 AM EDT Problem: Adult Inpatient Plan of Care Goal: Plan of Care Review Outcome: Ongoing, Progressing Flowsheets (Taken 11/20/2024 0019) Progress: no change Outcome Evaluation: ongoing Plan of Care Reviewed With: patient Goal: Patient-Specific Goal (Individualized) Outcome: Ongoing, Progressing Flowsheets (Taken 11/19/2024 2030) Patient/Family-Specific Goals (Include Timeframe): Pt will have pain control throughout shift Individualized Care Needs: ongoing Anxieties, Fears or Concerns: pain control Goal: Absence of Hospital-Acquired Illness or Injury Outcome: Ongoing, Progressing Goal: Optimal Comfort and Wellbeing Outcome: Ongoing, Progressing Problem: Skin Injury Risk Increased Goal: Skin Health and Integrity Outcome: Ongoing, Progressing Note: Under pads utilized. * Care Plan - Socrates Lew RN - 11/19/2024 6:19 PM EDT Problem: Adult Inpatient Plan of Care Goal: Plan of Care Review Outcome: Ongoing, Progressing Flowsheets (Taken 11/19/2024 1818) Progress: no change Plan of Care Reviewed With: patient Goal: Patient-Specific Goal (Individualized) Outcome: Ongoing, Progressing Flowsheets (Taken 11/19/2024 1000) Patient/Family-Specific Goals (Include Timeframe): pt will verbalize adequate pain control by end of shift Individualized Care Needs: ongoing Anxieties, Fears or Concerns: Pain control Goal: Absence of Hospital-Acquired Illness or Injury Outcome: Ongoing, Progressing Goal: Optimal Comfort and Wellbeing Outcome: Ongoing, Progressing Problem: Skin Injury Risk Increased Goal: Skin Health and Integrity Outcome: Ongoing, Progressing * Ismael Eber - Erika Sawyer RN - 11/19/2024 9:24 AM EDT Images from the original note were not included. [id number] Preventing a Surgical Site Infection A risk of any surgery is an infection at the surgical site. The surgical site is a cut the surgeon makes in the skin to do the surgery. Surgical site infections can range in type. It may be a minor skin infection. Or it may be severe and include tissue under the skin or other organs. In some cases,a severe infection can cause . The information below tells you: ? About surgical site infections. ? What hospitals do to prevent them. ? How they?re treated if they do occur. ? What you can do to prevent an infection. Hand washing reduces the risk of infection. What causes a surgical site infection? Germs are everywhere. They?re on your skin, in the air, and on things you touch. Many germs are good. Some are harmful. Surgical site infections occur when harmful germs enter your body through the incision in your skin. Some infections are caused by germs that are in the air or on objects. But most are caused by germs found on and in your own body. Who is at risk for a surgical site infection? Anyone can have a surgical site infection. Your risk is higher if you: ? Are an older adult. ? Have a weak immune system. ? Have other health conditions such as diabetes. ? Take certain medicines, such as steroids. ? Are a smoker. ? Have certain types of surgery, such as abdominal surgery. ? Have poor nutrition. ? Are very overweight. ? Have a surgery that lasts longer than 2 hours. What are the symptoms of a surgical site infection? An infection often shows up as skin redness, pain, and swelling around the incision that gets worse. Later, a cloudy or greenish-yellow fluid may come from the incision. The fluid may smell bad. The incision may pull apart or open up. You are likely to have a fever and may feel very ill. Symptoms can appear at any time. They may happen from hours to weeks after surgery. Implants such as an artificial knee or hip can become infected at any time after the surgery. How is a surgical site infection treated? ? A surgical site infection is treated with antibiotics. The type of medicine you get will depend on what may be causing the infection. Most serious wound infections need wound care. In some cases, surgery may be needed on the infected wound. ? An infected skin wound may be reopened and cleaned. A deep wound may need to be packed with gauze. The gauze is changed often until the wound starts to heal from the inside out. Your health care provider will decide the best way to treat your infection. ? If an infection occurs where an implant is placed, the implant may be removed. ? If you have an infection deeper in your body, you may need surgery to treat it. What hospitals do to prevent surgical site infections Many hospitals take these steps to help prevent surgical site infections: ? Handwashing. Before the surgery, your surgeon and all surgery staff scrub their hands and arms with an antiseptic soap. ? Clean skin. The site where your incision is made is carefully cleaned with an antiseptic solution. ? Sterile clothing and drapes. The surgical team wears medical uniforms. These are known as scrub suits. They wear long-sleeved surgical gowns, masks, caps, shoe covers, and sterile gloves. Your bodyis fully covered with a large sterile sheet (sterile drape). There is an opening in the sheet wherethe incision is made. ? Clean air. Operating rooms have special air filters. They use positive pressure airflow to prevent unfiltered air from entering the room. ? Careful use of antibiotics. Antibiotics are given no more than 60 minutes before the incision is made. They are generally stopped within 24 hours after surgery. This depends on the type of surgery.This helps kill germs but prevents problems that can occur when antibiotics are taken longer. ? Controlled blood sugar levels. Your blood sugar level may rise. This can be because of the stressof the surgery. Your blood sugar level is watched closely to make sure it stays within a normal range. High blood sugar delays wound healing. This increases the risk of infection. ? Controlled body temperature. A zwbhi-zlja-cmsney temperature during or after surgery prevents oxygen from reaching the wound. This makes it harder for your body to fight infection. Hospitals may warm I.V. fluids, and provide warm-air blankets. Your temperature is watched throughout the surgery. ? Safe hair removal. Any hair that must be removed is clipped right before the incision, not shavedwith a razor. This prevents tiny nicks and cuts where germs can enter. ? Wound care. After surgery, a closed wound is covered with a sterile dressing for 1 to 2 days. Open wounds are packed with sterile gauze and covered with a sterile dressing. What you can do to prevent a surgical site infection ? Ask questions. Learn what your hospital is doing to prevent infection. ? If instructed, shower or bathe with plain soap the night before and the day of your surgery. Follow all instructions you're given. You may be asked to use a special cleanser that you don?t rinse off. ? If you smoke, stop as long as possible before and after the surgery. Ask your provider about waysto quit. ? Take antibiotics only when your provider tells you to. Using antibiotics when they?re not needed can create germs that are harder to kill. Finish the entire prescription of your antibiotics even ifyou feel better. ? Ask health care workers to clean their hands with plain soap and water or with an alcohol-based hand rn clinical documentation before and after caring for you. Don?t be afraid to remind them. ? After surgery, eat healthy foods. Care for your incision as directed by your health care team. When to contact your doctor Contact your provider or seek medical care right away if: ? The pain at the surgical site gets worse. ? A red streak, worse redness, or puffiness appears near the incision. ? Yellowish, cloudy, or bad-smelling fluid leaks from the incision. ? Your stitches dissolve before the wound heals. ? You have a fever of 100.4?? F ( 38??C ) or higher, or as advised by your provider. ? You have a tired feeling that doesn?t go away. Last Reviewed Date: 2024 00:00:00 ?? [id number] [employer]. All rights reserved. This information is not intended as a substitute for professional medical care. Always follow your healthcare professional's instructions. * Ismael OnFHIR - Erika Sawyer RN - 11/19/2024 9:24 AM EDT Images from the original note were not included. 57741 HIDA Scan A HIDA (hepatobiliary iminodiacetic acid ) scan is an imaging test. It can be used to check for problems in the liver, gallbladder, and the tubes inside and outside the liver (bile ducts). During thetest, a small amount of radioactive substance (tracer) is injected into a vein in your arm or hand.Pictures are then taken to track the movement of the tracer. The test takes about 2 hours. In some cases, more pictures may need to be taken after a wait of 4 hours. You?ll be told as the test progresses how long your test may take. Before the test ? Follow any directions you?re given for not eating or drinking before the procedure. Your healthcare provider will give you instructions if required. ? Tell your healthcare provider what medicines you?re taking. This includes vitamins, herbs, and pwgi-rfb-gjhcqgn medicines. You may be told to stop taking some or all of them in the days before the test. ? Follow any other instructions you?re given to get ready for the test. What to tell the technologist Let the technologist know if you: ? Are taking any medicines or have allergies to any medicines. Some medicines may prevent accurate test results. ? Had recent X-rays or tests that used barium ? Had recent surgery or illness ? Have other health problems, such as diabetes ? Are or think you might be ? Are ? Smoke or use other tobacco products During the test The test is done by a nuclear medicine or senior cytogenetic technologist. It can be done in a hospital or test center: ? You?ll lie on your back on a table. A special camera (also called a scanner) will be positioned above your belly (abdomen). ? An IV (intravenous) needle or IV line is placed into a vein in your arm or hand. The tracer is then injected through the IV line. ? Pictures are taken as the tracer follows the movement of bile through the liver, gallbladder, andbile ducts, and the first part of the small intestine (duodenum). Bile is a substance made by the liver that helps you digest fat. ? You?ll need to lie still to help ensure that the pictures are not blurry. ? Based on your healthcare provider's practices, you may be given a substance by mouth or injected through a vein that causes the gallbladder to contract and release bile. Be sure to let the technologist know if you feel discomfort. This could indicate gallbladder dysfunction. ? If needed, more pictures may be taken after 4 hours. After the test ? The technologist will let you know when the test is completed. ? The tracer will pass out of the body in your stool and urine within 24 hours. Drink plenty of fluids to help the tracer pass. Follow-up Your healthcare provider will go over test results with you when they are ready. This is likely within a few days of the test. Possible risks Possible risks of this imaging test can include: ? Problems at the IV site ? Allergic reaction to the tracer or medicine used during the test ? Radiation exposure from the tracer Last Reviewed Date: 2022 00:00:00 ?? [id number] The [employer]. All rights reserved. This information is not intended as a substitute for professional medical care. Always follow your healthcare professional's instructions. * Ismael Velázquez - Erika Sawyer RN - 11/19/2024 9:24 AM EDT Images from the original note were not included. [id number] Possible Gallstone with Biliary Colic (Presumed) Your belly (abdominal) pain may be due to spasm of the gallbladder. This is called gallbladder or biliary colic. The gallbladder is a small sac under the liver, which stores and releases bile. Bile is a fluid that aids in the digestion of fat. Eating fatty food stimulates the gallbladder to contract, and release the bile. A gallstone may form in this sac. Although most people don't have symptoms,when the stone moves and blocks the passage of bile out of the bladder, it can cause pain and even an infection. To be more certain of the diagnosis, you may need to have an ultrasound, CT scan, or other special test. Many things increase the risk for developing gallstones: ? Being female ? Obesity ? Being older ? Losing or gaining weight quickly ? High-calorie diet ? ? Hormone therapy ? Diabetes The most common symptoms are: ? Abdominal pain, cramping, aching ? Nausea, vomiting ? Fever Many illnesses can cause these symptoms. This pain usually starts in the upper right side of your abdomen. Sometimes it can radiate to your right shoulder, back and arm. It usually starts suddenly, becomes more intense quickly, and then gradually decreases and disappears over a couple of hours. Elderly people and diabetics may have trouble showing where the pain is exactly. The pain may occur after meals, especially a high fat meal. Home care ? Rest in bed and follow a clear liquid diet until feeling better. If pain or nausea medicine was given to help with your symptoms, take these as directed. ? You can take acetaminophen or ibuprofen for pain, unless you were given a different pain medicineto use. Note: If you have chronic liver or kidney disease or ever had a stomach ulcer or gastrointestinal bleeding or are taking blood thinner medicines, talk with your provider before using these medicines. ? Fat in your diet makes the gallbladder contract. And it may cause increased pain. So limit fat inyour diet over the next 2 days. Then follow a low-fat diet after that. If you're overweight, a low-fat diet will help you lose weight. If you're not sure what to eat, ask your provider for information. Follow-up care If a test was already scheduled for you, keep this appointment. Be sure you know how to get ready for the test. Follow any directions you're given for not eating or drinking before the test. Schedulean appointment with your own provider after your test is done to discuss the findings. Biliary colic tends to come back. So treatment is often needed. This often includes surgery to remove the gallbladder (cholecystectomy). When to get medical advice Call your healthcare provider if any of these occur: ? Pain gets worse or moves to the right lower belly ? Repeated vomiting ? Belly swelling ? Pain lasts over 6 hours ? Fever of 100.4?? F (38?? C) or higher, or as directed by your provider ? Weakness, dizziness ? Dark urine or light=colored stools ? Yellow color of the skin or eyes (jaundice) ? Chest, arm, back, neck or jaw pain Call 911 Call 911 if any of these occur: ? Trouble breathing ? Very confused ? Very drowsy or trouble waking up ? Fainting or loss of consciousness ? Rapid heart rate Last Reviewed Date: 2021 00:00:00 ?? [id number] [employer]. All rights reserved. This information is not intended as a substitute for professional medical care. Always follow your healthcare professional's instructions. * Ismael Velázquez - Erika Sawyer RN - 11/19/2024 9:24 AM EDT Images from the original note were not included. 75762 Cholecystectomy You?ve had painful attacks caused by gallstones. To treat the problem, your healthcare provider wants to remove your gallbladder. This surgery is called a cholecystectomy. Taking out the gallbladder can ease pain. It will also help stop future attacks. You can live a healthy life without your gallbladder. You may also be able to go back to eating foods you liked before your gallbladder problems started. Before your surgery To get ready: ? Tell your provider what medicines you take. Include both prescription and [id number] medicines. Also include vitamins, herbs, and supplements. Tell them if you take prescription blood thinners. This includes warfarin, clopidogrel, and aspirin. ? Have any tests your provider asks for, such as blood work or imaging. ? Follow all directions you're given for not eating or drinking before your surgery. You may need to take some medicine with sips of water. Talk with your provider. ? You'll be asked to sign an informed consent document. Signing the form means you understand the surgery. It means you agree to the procedure. Be sure all of your questions are answered before you sign the form. The day of surgery When you arrive, you'll get ready for surgery: ? An IV (intravenous) line will be put into a vein in your arm or hand. This gives you fluids and medicine. ? An anesthesiologist will talk with you about anesthesia. This is medicine used to prevent pain. You'll get general anesthesia. This puts you into a deep sleep during the procedure. During surgery There are 2 methods for taking out the gallbladder. Your healthcare provider will choose which way is best for you: ? Laparoscopic cholecystectomy. This is most common. During surgery, 2 to 4 small cuts (incisions) are made. A thin tube with a camera is used. This is called a laparoscope. The scope is put through 1 of the cuts. It sends images to a video screen. Tiny tools for surgery are put through other cuts.The gallbladder is taken out using the scope and these tools. ? Open cholecystectomy. One larger incision is made. The surgeon sees and works through this cut. Open surgery is most often used when scarring or other factors make it a better choice for you. In some cases, your provider may need to change from laparoscopic to open surgery during the procedure. Clips close off the duct connecting the gallbladder to the bile duct. The gallbladder is then removed. After surgery You'll be sent to a recovery room to wake up from the anesthesia. You'll likely go home the same day. In some cases, you'll need to stay overnight. If you had open cholecystectomy, you may need to stay in the hospital for a few days. When you're released to go home, have a family member or friend ready to drive you. If you're told to take medicines after surgery, do so as told. If you're told to do breathing exercises, do them as advised. You'll be scheduled for a follow-up visit. Risks and possible complications of gallbladder surgery All surgeries have risks. The risks of gallbladder surgery include: ? Bleeding ? Infection ? Injury to the common bile duct or nearby organs ? Blood clots in the legs ? Bile leaks ? Hernia at incision site ? Pneumonia When to call the healthcare provider Call your surgeon if you have these symptoms: ? Fever of 100.4??F (38.0??C) or higher, or as advised by your provider ? Redness, pain, or fluid leaking at the incision site ? Yellow color to your skin or eyes (jaundice) ? Severe pain or cramping in your belly ? Vomiting that continues and unable to keep down fluids ? No bowel movement within 3 days ? Trouble peeing ? Mild or short-term rectal bleeding ? Leg swelling Call 911 Call 911 if you have any of these: ? Sudden shortness of breath or trouble breathing ? A lot of bleeding, or bleeding for a long time Last Reviewed Date: 2023 00:00:00 ?? [id number] [employer]. All rights reserved. This information is not intended as a substitute for professional medical care. Always follow your healthcare professional's instructions. * Ismael OnFHMORELIA - Erika Sawyer RN - 11/19/2024 9:24 AM EDT Images from the original note were not included. Treating Gallstones - Video This video will teach viewers what causes gallstones and what symptoms they can produce. Additionally, they will learn about complications from gallstones and treatment strategies, as well as prevention tips. To view the video go to this web address: [email or web address] Or, scan this QR code with your smart phone ?? [facility] * Consults - Shruthi Espitia RD - 11/19/2024 8:26 AM EDT Adult Nutrition Evaluation Note Radha Aparicio 44 y.o. female CSN: [id number] Room/Bed 140/140A Nutrition evaluation type: assessment Reason for evaluation: nurse consult Hospital course: 44 y/o female with high grade endometrioid adenocarcinoma admitted for nausea, vomiting, diarrhea and abd pain; c/f cholecystitis. S/p liver embolization and biopsy 11/18. Plans for HIDA scan. Past medical/ surgical history: Past Medical History[1] Surgical History[2] Additional comments: Pt drowsy at visit, family at bedside. Pt reports improving symptoms. Family reports minimal intakes since Sunday. Pt's UBW ~245#. Pt denied weight loss, family thinks she has lost weight. Pt has not tried Boost supplements before. Vitals and Basic Assessment: BP: 128/76 Temp: 36.4 ??C (97.5 ??F) Oxygen Therapy: None (Room air) O2 Delivery Method: Nasal cannula Fabio Coma Scale Score: 15 Sudeep Scale Score: 22 GI Symptoms: None Allergies: NKFA Medications: Current Scheduled Medications[3] Labs: Labs in last 18 hours CBC WBC 10.74 (H) Hb 7.8 (L) Plt 249 Hct 24.5 (L) ANC ?? INR ??, PTT ??, Anti-Xa ?? BMP Na 139 Cl 104 BUN 11 Glu 118 (H) K 4.4 Co2 20 (L) Cr 0.79 Ca 8.4 (L) iCa ?? Mg 2.0, Phos ?? Lactate ?? LFT AST 1,474 (H) AlkPhos 321 (H) T Prot 6.9 ALK 388 (H) Bili 0.7 Alb ?? D.Bili ?? Anthropometrics: Height: 175.3 cm (5' 9 ) Weight: 115 kg (252 lb 6.8 oz) Admit Weight: 111 kg (244 lb) BMI (Calculated): 37.26 Weight Evaluation: Obese-Class 2 (BMI 35-39.9) Weight History: UBW ~245# [place] Body Weight (kg): 65.9 Percent [place] Body Weight: 174 Estimated Needs: Current Nutrition Intake: Diet Order: NPO Diet Experience and Nutrition History: Diet Education Provided: Will monitor Nutrition Focused Physical Exam: Physical exam performed on (date): 11/19/24 Temples (muscles): Mild Clavicle (muscle): None Shoulder (muscle): None Orbital (fat): None Triceps (fat): None Assessment of Malnutrition: Malnutrition Identified: No Nutrition Problem: Inadequate oral intake related to N/V/D as evidenced by pt's diet recall. Status of Nutrition Diagnosis: New Nutrition Interventions and Recommendations: - Low fat diet as tolerated. - Add orange Boost Breeze TID Nutrition Monitoring and Goals: - Consume >75% of meals Acuity Level: [address] [1] Past Medical History: Diagnosis Date Disease of salivary gland, unspecified Parotid mass Endometrial cancer (CMS/HCC) [2] Past Surgical History: Procedure Laterality Date HYSTERECTOMY N/A Hysterectomy from [facility] TUBAL LIGATION N/A Tubal ligation from [facility] [3] methocarbamol, 500 mg, Oral, 4x daily pantoprazole, 40 mg, Oral, Daily before breakfast Saline lock IV, , , Once AND sodium chloride, 10 mL, Intravenous, q12h AND sodium chloride,10 mL, Intravenous, PRN * Progress Notes - Deysi Pinedo MD - 11/19/2024 5:08 AM EDT Gynecologic Oncology Daily Progress Note Subjective Patient with more pain overnight. Not receiving opioids due to HIDA. Said she wasn't given tylenol.NPO for procedure but has not had nausea or vomiting overnight. Passing gas, voiding spontaneously.Denies fever, chills, SOA, chest pain, nausea/vomiting. Review of Systems 10-point ROS performed and negative except as per HPI. Objective Temp: [36.4 ??C (97.6 ??F)-37.2 ??C (99 ??F)] 36.4 ??C (97.6 ??F) Heart Rate: [62-91] 68 Resp: [14-27] 20 BP: (110-159)/(60-91) 140/83 Vitals: 11/18/24 2326 BP: (!) 140/83 Pulse: 68 Resp: Temp: 36.4 ??C (97.6 ??F) SpO2: 95% I/O last 3 completed shifts: In: 300 (2.6 mL/kg) [Blood:300] Out: - (0 mL/kg) Weight: 113.3 kg Physical Exam: GENERAL: Alert, well-appearing, in NAD CARDIOVASCULAR: No peripheral edema RESPIRATORY: normal respiratory effort on room air GASTROINTESTINAL: Soft, non tender, non-distended, no rebound or guarding. GENITOURINARY: Deferred SKIN: Warm, dry, well-perfused. PSYCHIATRIC: AO x3, with appropriate affect, normal thought processes EXTREMITIES: Symmetric. No peripheral edema. Labs: Lab Results Component Value Date WBC 9.43 11/18/2024 HGB 6.9 (L) 11/18/2024 HCT 21.3 (L) 11/18/2024 MCV 83 11/18/2024 PLT 220 11/18/2024 NEUTROABS 10.04 (H) 11/17/2024 GLUCOSE 91 11/18/2024 BUN 10 11/18/2024 CREATININE 0.90 11/18/2024 NA 140 11/18/2024 K 3.6 11/18/2024 CL 105 11/18/2024 CO2 22 11/18/2024 MG 1.6 (L) 11/18/2024 PHOS 3.6 11/14/2024 CALCIUM 7.9 (L) 11/18/2024 Imaging: IR Embolization Tumor or Ischemia or Infarction Result Date: 11/18/2024 Impression: Successful ultrasound-guided liver mass biopsy. Successful angiography and embolizationof arterial supply of hemorrhagic liver mass. PLAN: -2 hours postsedation recovery. -Aggressive pain control regimen due to extensive embolization targeted area: 0.5 to 1 mg Dilaudid every 2 hours as needed for severe pain. -Following sedation recovery, patient to return to inpatient bed. -Referring provider to follow up on biopsy results. CRITICAL RESULT: No. COMMUNICATION: Per this written report. Preliminary report signed by Lui sMiguel Estes MD on 11/18/2024 7:06 PM US Guided Needle Biopsy Liver Result Date: 11/18/2024 Impression: Successful ultrasound-guided liver mass biopsy. Successful angiography and embolizationof arterial supply of hemorrhagic liver mass. PLAN: -2 hours postsedation recovery. -Aggressive pain control regimen due to extensive embolization targeted area: 0.5 to 1 mg Dilaudid every 2 hours as needed for severe pain. -Following sedation recovery, patient to return to inpatient bed. -Referring provider to follow up on biopsy results. CRITICAL RESULT: No. COMMUNICATION: Per this written report. Preliminary report signed by Luis Miguel Estes MD on 11/18/2024 7:06 PM Assessment/Plan Radha Aparicio is a 44 y.o. with high grade endometrioid adenocarcinoma and persistent n/v/diarrhea and ab pain c/f cholecystitis. # n/v, diarrhea # ab pain # GB thickening - pt reports doing well on pain and nausea regimen since discharge 11/12 - n/v started 8 am with associated diarrhea - Labs H 27-20-1u-25 P 308-220-249 W 12-9-11 Lipase 14 - RUQ US 11/17: cholelithiasis w/ gallbladder wall thickening c/f cholecystitis. Redemonstrated largeintraparenchymal liver mass. Few punctate nonobstructive renal calculi in R kidney, no hydro - PE: +Crownpoint sign, no signs of acute peritonitis - GS consult: rec HIDA scan but pt may require partial cholecystectomy, no abx currently but if fever develops consider cefoxitin Plan - NPO/LR 75 - PPI - monitor WBC and if fever develops consider cefoxitin - HIDA ordered, will get today - given one dose of toradol this morning for pain, not received tylenol per nursing due to reachingmax dosing. Ordered was 1000mg q6 scheduled, changed to q8 scheduled # High grade endometroid adenocarcinoma - Diagnosed 2017 after DIONNA/BSO, liver biopsy, tumor debulking with Dr. Love for new pelvic mass with associated liver and splenic lesions -- pathology of pelvic mass and liver biopsy both consistent with high grade endometrioid adenocarcinoma - Completed 1 year of chemotherapy (carbo/tax per chart review) with Dr. Veloz at [facility] - Lost to follow up [...] discussed biopsy oflesions and discussion with Dr. Love's office, unsure if this has been completed [...] several large liver lesions (right dome -- [id number] (enlarged from 4.7 x 4.2) & 10.5 [...] conclusion of chemotherapy) - Care transferred to [facility] 11/10, s/p cefoxitin (11/08-11/10) - s/p liver embolization and biopsy 11/18 Plan: - f/up biopsy results # FEN/PPX - NPO/LR @ 75 - SCDs/hold plov in setting of hemorrhagic liver lesions - Replete electrolytes PRN Dispo: Continue inpatient management. Please message on-call [facility] resident via Etherpad Secure Chat or page [phone] for questions or concerns regarding this patient's care. Deysi Pinedo MD Obstetrics & Gynecology, PGY-2 Cosigned by Vinicius Love MD at 11/21/2024 2:31 PM EDT Associated attestation - Vinicius Love MD - 11/21/2024 2:31 PM EDT I saw and evaluated the patient with the resident/fellow. I discussed the case with the resident/fellow and agree with the findings and plan as documented. * Care Plan - Kareem Angelo RN - 11/19/2024 2:14 AM EDT Problem: Adult Inpatient Plan of Care Goal: Plan of Care Review Outcome: Ongoing, Progressing Flowsheets (Taken 11/18/2024 0128 by Vivienne Cm RN) Progress: no change Plan of Care Reviewed With: patient family Goal: Patient-Specific Goal (Individualized) Outcome: Ongoing, Progressing Flowsheets (Taken 11/18/2024 1900) Patient/Family-Specific Goals (Include Timeframe): pt will verbalize adequate pain control by end of shift Individualized Care Needs: Ongoing Anxieties, Fears or Concerns: Pain control Goal: Absence of Hospital-Acquired Illness or Injury Outcome: Ongoing, Progressing Intervention: Identify and Manage Fall Risk Flowsheets (Taken 11/18/2024 1900) Safety Promotion/Fall Prevention: activity supervised fall prevention program maintained Intervention: Prevent Skin Injury Flowsheets Taken 11/19/2024 0000 by Brittney Meehan Body Position: weight shifting supine, legs elevated Taken 11/18/2024 012 by Vivienne Cm, RN Skin Protection: incontinence pads utilized Intervention: Prevent and Manage VTE (Venous Thromboembolism) Risk Flowsheets (Taken 11/18/2024 2343) VTE Prevention/Management: SCDs (sequential compression devices) off Intervention: Prevent Infection Flowsheets (Taken 11/18/2024 012 by Vivienne Cm, RN) Infection Prevention: cohorting utilized environmental surveillance performed hand hygiene promoted equipment surfaces disinfected rest/sleep promoted single patient room provided Goal: Optimal Comfort and Wellbeing Outcome: Ongoing, Progressing Intervention: Monitor Pain and Promote Comfort Flowsheets (Taken 11/19/2024 0045) Pain Management Interventions: medication (see MAR) care clustered diversional activity provided emotional support rest Intervention: Provide Person-Centered Care Flowsheets (Taken 11/19/2024 0213) Trust Relationship/Rapport: care explained choices provided emotional support provided empathic listening provided questions answered questions encouraged reassurance provided thoughts/feelings acknowledged * Progress Notes - Radha Langston RN - 11/18/2024 2:27 PM EDT Case Management Adult Initial Progress Note Radha Aparicio 44 y.o. female CSN: [id number] Admission: 11/17/2024 1:26 PM Primary Problem: RUQ abdominal pain Cytopathologist reviewed chart and spoke with patient to complete this Initial Case Management Assessment. PCP: Dr. Benny Gonzalez Emergency Contact: Extended Emergency Contact Information Primary Emergency Contact: Kaushal Aparicio Mobile Relation: Brother Preferred language: Serbian Faculty Dean needed? No Secondary Emergency Contact: Irish Joiner Mobile Relation: Daughter Insurance: Primary Visit Coverage Payer Plan Sponsor Code Group Number Group Name [employer] [facility] . Primary Visit Coverage Subscriber Subscriber ID Subscriber Name Subscriber SSN Subscriber Address [id number] RADHA APARICIO [id number] [place] [id number] Patient information: re-admit to with high grade endometrioid adenocarcinoma and persistent n/v/diarrhea and ab pain c/f cholecystitis. Patient reports doing well on pain and nausea regimen since discharge 11/12 Nausea and vomiting started 9/8 am with associated diarrhea. Home address and insurance confirmed. Reports good support from family and home assistance and transport. Daily Living Activities: independent [address] [place] [address] Current DME: none reported. Income Information: unemployed Income meets expenses. Housing Circumstances-Z Codes: low income 101-300% Federal Poverty Guideline Patient Referred to: n/a Anticipated Discharge Date: 2-4 day Patient's Discharge Goal: home Assistance Available at Discharge: self/family Discharge Transport: family Follow Up Transport: family Home Health / Home Infusion / Outpatient Dialysis Services: none reported Living Will/Advance Directive/Power of Vice President Mission Integration /Guardian: none reported Have you reviewed your Advance Directive and is it valid for this stay?: Not applicable Advance Directive: Not applicable Information Provided on Healthcare Directives: No Pre-existing DNR/DNI Order: No Patient Requests Assistance: No Additional Comments: per team, not medically ready for discharge. Pending today for IR biopsy/ embolization. Radha Langston RN * Significant Event - Michelle Ramos MD - 11/18/2024 2:00 PM EDT As of 11/14/2024, patient Maribell Aparicio was scheduled for hepatic embolization and biopsy. She presented to her scheduled procedure, however the case had to be postponed because preceding procedures in the same suite exceeded their expected duration, resulting in overall program delays. New appointment: Sunday11/18/2024 * Pre-Procedure Note - Luis Miguel Estes MD - 11/18/2024 1:40 PM EDT Images from the original note were not included. INTERVENTIONAL RADIOLOGY SEDATION PRE-PROCEDURAL ASSESSMENT AND PLAN OF CARE Indication for procedure: The primary encounter diagnosis was RUQ abdominal pain. 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 Planned Procedure: [place] embolization of liver mass with liver mass biopsy Relevant past medical history: has a past medical history of Disease of salivary gland, unspecifiedand Endometrial cancer (CMS/HCC). Previous problems with surgery, anesthesia or sedation: No Previous family history or problems with anesthesia or sedation: No History of tobacco use, alcohol use, or substance abuse: Tobacco Use History[1], Social History Substance and Sexual Activity Alcohol Use None , Social History Substance and Sexual Activity Drug Use Not on file Height and Weight: Visit Vitals BP (!) 140/65 Pulse 71 Temp 36.8 ??C (98.2 ??F) (Temporal) Ht 1.753 m (5' 9 ) Wt 113 kg (249 lb 12.5 oz) SpO2 93% BMI 36.89 kg/m?? Allergies to medication: Patient has no known allergies. Current medications: Current Medications[2] Relevant Labs: Lab Results Component Value Date CREATININE 0.90 11/18/2024 EGFR 80.0 11/18/2024 INR 1.2 (H) 11/17/2024 Planned Sedation/Anesthesia: Moderate Airway assessment: normal Mallampati Score: III (soft and hard palate and base of uvula visible) ASA: ASA 3 - Patient with moderate systemic disease with functional limitations Directed physical examination: Vitals: 11/18/24 1315 BP: (!) 140/65 Pulse: 71 Resp: 23 Temp: 36.8 ??C (98.2 ??F) SpO2: 93% GENERAL: awake and alert, afebrile HENT: Normocephalic and atraumatic PULMONARY: normal respiratory effort, symmetric chest rise CARDIOVASCULAR: Warm, well perfused ABDOMINAL: Soft, nontender SKIN: No rashes NEURO: No focal deficits PSYCH: Normal mood and affect Benefits, risks and alternatives of procedure and planned sedation have been discussed with the patient and/or their outside sales representative. All questions answered and they agree to proceed. [1] Social History Tobacco Use Smoking Status Every Day Smokeless Tobacco Not on file [2] Current Facility-Administered Medications Medication Dose Route Frequency Provider Last Rate Last Admin acetaminophen (Tylenol) tablet 1,000 mg 1,000 mg Oral q6h Deysi Fisher MD 1,000 mg at 11/18/24 1229 lactated Ringer's infusion 75 mL/hr Intravenous Continuous [place], Rebekah K, MD 75 mL/hr at 11/18/24 0000 75 [...] 10 mL Intravenous PRN Rebekah Kwan MD Current Outpatient Medications Medication Sig Dispense Refill [...] for nausea or vomiting. 10 tablet 1 * Procedures - Lupe Hernández RN - 11/18/2024 7:57 AM EDTAssociated Order(s): Insert peripheral IV Insert peripheral IV Performed by: Lupe Hernández RN Authorized by: Kareem Guidry MD Hand hygiene: Hand hygiene performed prior to insertion Inserted using aseptic techniques: Yes Preparation: Skin prepped with chg Orientation: Right and distal Location: Forearm Catheter placed: Peripheral IV Catheter size: 20g/1.16in Line Technique: Ultrasound Guidance Number of attempts: 1 IV flushes: Without difficulty and positive blood return noted Patient tolerance: Patient tolerated the procedure well and there were no complications Patient comfort measures used: Position of comfort IV site covered with: Transparent semipermeable dressing Education provided to: Patient * Progress Notes - Deysi Pinedo MD - 11/18/2024 3:40 AM EDT Gynecologic Oncology Daily Progress Note Subjective Patient did well overnight. Her pain is controlled with PO pain medications. NPO for procedure but has not had nausea or vomiting overnight. Passing gas, voiding spontaneously. Denies fever, chills, SOA, chest pain, nausea/vomiting. Review of Systems 10-point ROS performed and negative except as per HPI. Objective Temp: [36.6 ??C (97.8 ??F)-37.4 ??C (99.3 ??F)] 37.2 ??C (99 ??F) Heart Rate: [79-99] 84 Resp: [18] 18 BP: (114-144)/(62-93) 138/62 Vitals: 11/18/24 0014 BP: 138/62 Pulse: 84 Resp: 18 Temp: 37.2 ??C (99 ??F) SpO2: 93% No intake/output data recorded. Physical Exam: GENERAL: Alert, well-appearing, in NAD CARDIOVASCULAR: Normal rate, regular rhythm, no murmurs, rubs, or gallops. RESPIRATORY: Clear to auscultation bilaterally, normal respiratory effort on room air GASTROINTESTINAL: Soft, appropriately tender, non-distended, no rebound or guarding. GENITOURINARY: Deferred SKIN: Warm, dry, well-perfused. PSYCHIATRIC: AO x3, with appropriate affect, normal thought processes EXTREMITIES: Symmetric. No peripheral edema. Labs: Lab Results Component Value Date WBC 12.34 (H) 11/17/2024 HGB 8.4 (L) 11/17/2024 HCT 27.1 (L) 11/17/2024 MCV 85 11/17/2024 PLT 308 11/17/2024 NEUTROABS 10.04 (H) 11/17/2024 GLUCOSE 89 11/17/2024 BUN 10 11/17/2024 CREATININE 0.88 11/17/2024 NA 137 11/17/2024 K 3.6 11/17/2024 CL 102 11/17/2024 CO2 20 (L) 11/17/2024 MG 1.9 11/14/2024 PHOS 3.6 11/14/2024 CALCIUM 9.0 11/17/2024 Imaging: US Abdomen RUQ Result Date: 11/17/2024 Impression: Cholelithiasis with gallbladder wall thickening suggestive of cholecystitis. Redemonstrated large intraparenchymal liver masses. Few punctate nonobstructive renal calculi within the rightkidney. No hydronephrosis. CRITICAL RESULT: No. COMMUNICATION: Per this written report. By electronically signing this report, I, the attending physician, attest that I have personally reviewed the images/data for the above examination(s) and agree with the final edited report. Drafted by Ras Smith MD on 11/17/2024 2:27 PM Final report signed by Orion Garcia MD on 11/17/2024 2:59 PM Assessment/Plan Radha Aparicio is a 44 y.o. with high grade endometrioid adenocarcinoma and persistent n/v/diarrhea and ab pain c/f cholecystitis. # n/v, diarrhea # ab pain # GB thickening - pt reports doing well on pain and nausea regimen since discharge 11/12 - n/v started 9/8 am with associated diarrhea - Labs H 27 P 308 W 12 Lipase 14 - RUQ US 11/17: cholelithiasis w/ gallbladder wall thickening c/f cholecystitis. Redemonstrated largeintraparenchymal liver mass. Few punctate nonobstructive renal calculi in R kidney, no hydro - PE: +Crownpoint sign, no signs of acute peritonitis - GS consult: rec HIDA scan but pt may require partial cholecystectomy, no abx currently but if fever develops consider cefoxitin Plan - NPO/LR 75 - PPI - monitor WBC and if fever develops # High grade endometroid adenocarcinoma - Diagnosed 2018 after DIONNA/BSO, liver biopsy, tumor debulking with Dr. Love for new pelvic mass with associated liver and splenic lesions -- pathology of pelvic mass and liver biopsy both consistent with high grade endometrioid adenocarcinoma - Completed 1 year of chemotherapy (carbo/tax per chart review) with Dr. Veloz at [facility] - Lost to follow up [...] discussed biopsy oflesions and discussion with Dr. Love's office, unsure if this has been completed [...] several large liver lesions (right dome -- [id number] (enlarged from 4.7 x 4.2) & 10.5 [...] conclusion of chemotherapy) - Care transferred to O 11/10, s/p cefoxitin (11/08-11/10) - Pt originally scheduled for outpatient hepatic lesion biopsy and embolization tomorrow 11/18 Plan: - Continue with plan for embolization and biopsy 11/18 with IR - Will obtain records of cancer course and treatment after last surgery for more complete history # FEN/PPX - NPO/LR @ 73 - SCDs/hold plov in setting of hemorrhagic liver lesions - Replete electrolytes PRN Dispo: Continue inpatient management. Please message on-call [facility] resident via Etherpad Secure Chat or page [phone] for questions or concerns regarding this patient's care. Deysi Pinedo MD Obstetrics & Gynecology, PGY-2 Cosigned by Vinicius Love MD at 11/21/2024 2:29 PM EDT Associated attestation - Vinicius Love MD - 11/21/2024 2:29 PM EDT I saw and evaluated the patient with the resident/fellow. I discussed the case with the resident/fellow and agree with the findings and plan as documented. * Assessment & Plan Note - Linda Winchester MD - 11/17/2024 6:02 PM EDT Associated Problem(s): RUQ abdominal pain Concern for stones and wall thickness of gallbladder to 4mm. Most recent CT also reviewed with large stone noted. However, she also had large metastatic lesionsto liver. T bili wnl Recommend further workup with HIDA to evaluate if there is concern for cholecystitis before considering risks and benefits of any intervention that would be needed Recommend admission to artist scientific onc vs medicine EGS will continue to follow * H&P - Rebekah Kwan MD - 11/17/2024 4:08 PM EDT Gynecologic Oncology History and Physical Patient Name: Radha Aparicio : 1980 Date of Admission: 11/17/24 Chief Concern: Chief Complaint Patient presents with Vomiting Primary Oncologist: Dr. Vinicius Love/Dr. Veloz ([place]) Subjective Subjective History of Present Illness: Radha Aparicio is a 44 y.o. female with high grade endometroid adenocarcinoma who presents with n/v and loose stools since this morning. Pt was recently discharged (11/12) after being seen for ab pain concerning for cholecystitis. At the time she was diagnosed with cholelithiasis but there was no evidence of inflammation. While admitted CT showed evidence of hemorrhagic liver lesions concerning for metastasis. Due to scheduling complications she was scheduled for outpatient f/u with IR for embolization and biopsy of liver lesions. Pt reports she was doing well on pain and nausea regimen since discharge until this morning. Started having watery diarrhea and persistent n/v. Unable to tolerate PO at all today. Rates RUQ pain as 7/10. RUQ US showed gallbladder thickening concerning for cholecystitis. EGS consulted and following. Oncologic History: Oncology History No problem history exists. Past Medical History: Past Medical History[1] Past Surgical History: Surgical History[2] Family History: Family History[3] Social History: Social History[4] Medications: Current Outpatient Medications Medication Instructions acetaminophen (TYLENOL) 500 mg, Oral, Every 6 hours scheduled methocarbamol (ROBAXIN) 500 mg, Oral, 4 times daily ondansetron ODT (ZOFRAN-ODT) 4 mg, Oral, Every 6 hours PRN Allergies: Allergies[5] Review of Systems: Review of Systems Objective Objective Vital Signs: Visit Vitals BP (!) 144/93 (BP Location: Right arm, Patient Position: Lying) Pulse 79 Temp 37.2 ??C (98.9 ??F) (Oral) Resp 18 BMI: Body mass index is 36.03 kg/m??. Weight: Wt Readings from Last 3 Encounters: 11/17/24 111 kg (244 lb) 11/14/24 111 kg (244 lb 7.8 oz) 06/16/23 118 kg (260 lb) Physical Exam Constitutional: General: She is not in acute distress. Appearance: Normal appearance. She is not toxic-appearing. Cardiovascular: Rate and Rhythm: Normal rate. Pulmonary: Effort: Pulmonary effort is normal. No respiratory distress. Abdominal: General: There is no distension. Tenderness: Tenderness: TTP of RUQ, +Crownpoint sign. There is no guarding or rebound. Musculoskeletal: Right lower leg: No edema. Left lower leg: No edema. Neurological: Mental Status: She is alert and oriented to person, place, and time. Skin: General: Skin is warm and dry. Coloration: Skin is not jaundiced. Vitals reviewed. Results: Lab Results Component Value Date WBC 12.34 (H) 11/17/2024 RBC 3.19 (L) 11/17/2024 HGB 8.4 (L) 11/17/2024 HCT 27.1 (L) 11/17/2024 PLT 308 11/17/2024 MCV 85 11/17/2024 MCH 26.3 11/17/2024 MCHC 31.0 11/17/2024 RDW 16.7 (H) 11/17/2024 MPV 9.6 11/17/2024 NRBC 0.0 11/17/2024 Lab Results Component Value Date GLUCOSE 89 11/17/2024 BUN 10 11/17/2024 CREATININE 0.88 11/17/2024 BCR 11 11/17/2024 NA 137 11/17/2024 K 3.6 11/17/2024 CL 102 11/17/2024 CO2 20 (L) 11/17/2024 ANIONGAP 15 11/17/2024 CALCIUM 9.0 11/17/2024 TP 7.5 11/17/2024 ALBUMIN 3.0 (L) 11/17/2024 AST 32 11/17/2024 ALT 18 11/17/2024 ALKPHOS 378 (H) 11/17/2024 BILITOT 0.7 11/17/2024 EGFR 82.2 11/17/2024 Lab Results Component Value Date MG 1.9 11/14/2024 PHOS 3.6 11/14/2024 CAION 4.4 (L) 11/14/2024 Lab Results Component Value Date INR 1.2 (H) 11/17/2024 Imaging: US Abdomen RUQ Result Date: 11/17/2024 Cholelithiasis with gallbladder wall thickening suggestive of cholecystitis. Redemonstrated large intraparenchymal liver masses. Few punctate nonobstructive renal calculi within the right kidney. No hydronephrosis. CRITICAL RESULT: No. COMMUNICATION: Per this written report. By electronically signing this report, I, the attending physician, attest that I have personally reviewed the images/data for the above examination(s) and agree with the final edited report. Drafted by Lei Fonseca 11/17/2024 2:27 PM Final report signed by Orion Garcia MD on 11/17/2024 2:59 PM @[email or web address]@ Assessment/Plan Assessment / Plan aRdha Aparicio is a 44 y.o. with high grade endometrioid adenocarcinoma and persistent n/v/diarrhea and ab pain c/f cholecystitis. # n/v, diarrhea # ab pain # GB thickening - pt reports doing well on pain and nausea regimen since discharge 11/12 - n/v started this morning with associated diarrhea - current nausea regimen: zofran q6 - current pain regimen: toradol, tylenol, oxy PRN - RUQ US 11/17: cholelithiasis w/ gallbladder wall thickening c/f cholecystitis. Redemonstrated largeintraparenchymal liver mass. Few punctate nonobstructive renal calculi in R kidney, no hydro - PE: +Crownpoint sign, no signs of acute peritonitis - GS consult: rec HIDA scan but pt may require partial cholecystectomy, no abx currently but if fever develops consider cefoxitin Plan - NPO/LR 73 - PPI - will follow up recs from GS - monitor WBC and if fever develops # High grade endometroid adenocarcinoma - Diagnosed 2017 after DIONNA/BSO, liver biopsy, tumor debulking with Dr. Love for new pelvic mass with associated liver and splenic lesions -- pathology of pelvic mass and liver biopsy both consistent with high grade endometrioid adenocarcinoma - Completed 1 year of chemotherapy (carbo/tax per chart review) with Dr. Veloz at [facility] - Lost to follow up [...] discussed biopsy oflesions and discussion with Dr. Love's office, unsure if this has been completed [...] several large liver lesions (right dome -- [id number] (enlarged from 4.7 x 4.2) & 10.5 [...] transferred to [facility] 11/10, s/p cefoxitin (11/08-11/10) - Pt originally scheduled for outpatient hepatic lesion biopsy and embolization tomorrow 11/18 Plan: - Continue with plan for embolization and biopsy tomorrow with IR - INR, CMP, CBC ordered - Will obtain records of cancer course and treatment after last surgery for more complete history # FEN/PPX - NPO/LR @ 73 - SCDs/hold plov in setting of hemorrhagic liver lesions - Replete electrolytes PRN Dispo: Admit to [facility]: acute Please message on-call [facility] resident via Etherpad Secure Chat or page [phone] for questions or concerns regarding this patient's care. Rebekah FLORES PGY-1 *1953 [1] Past Medical History: Diagnosis Date Disease of salivary gland, unspecified Parotid mass [2] Past Surgical History: Procedure Laterality Date HYSTERECTOMY N/A Hysterectomy from [facility] TUBAL LIGATION N/A Tubal ligation from [facility] [3] Family History Problem Relation Name [...] Tobacco Use Disorder Social Drivers of Health Food Insecurity: No Food Insecurity (11/11/2024) Hunger Vital Sign Worried About Running Out of Food in the Last Year: Never true Ran Out of Food in the Last Year: Never true Transportation Needs: No Transportation Needs (11/11/2024) PRAPARE - Transportation Lack of Transportation (Medical): No Lack of Transportation (Non-Medical): No Social Connections: Unknown (12/17/2022) Received from [facility] Family and Community Support Help with Day-to-Day Activities: Not on file Lonely or Isolated: Not on file Intimate Partner Violence: Not At Risk (11/11/2024) Humiliation, Afraid, Rape, and Kick questionnaire Fear of Current or Ex-Partner: No Emotionally Abused: No Physically Abused: No Sexually Abused: No Housing Stability: Unknown (11/11/2024) Housing Stability Vital Sign Unable to Pay for Housing in the Last Year: No Homeless in the Last Year: No [5] No Known Allergies Cosigned by Vinicius Love MD at 11/21/2024 2:28 PM EDT Associated attestation - Vinicius Love MD - 11/21/2024 2:28 PM EDT I saw and evaluated the patient with the resident/fellow. I discussed the case with the resident/fellow and agree with the findings and plan as documented. * Consults - Linda Winchester MD - 11/17/2024 3:58 PM EDTAssociated Order(s): Consult to Emergency General Surgery Reason for Consultation: evaluation for cholecystitis Requesting Service: Emergency Department Consult to Emergency General Surgery Consult performed by: Linda Winchester MD Consult ordered by: Elisabeth Hernandez MD History Of Present Illness Radha Aparicio is a 44 y.o. female with PMH of high grade endometroid adenocarcinoma (s/p hysterectomy in 2018 along with chemo from [id number]) that previously saw the [facility] team and was lost to follow up who recently was admitted with concern for RUQ pain, with recent admission when noted tohave worsening mets to liver and spleen with further workup pending and negative cholecystitis concern presenting to [facility]17[facility]24 with recurrent RUQ symptoms. RUQ u/s completed noting concern for 4mm gallbladder wall thickness, prompting EGS evaluation for cholecystitis. Currently stable. States that since the morning she has had recurrence of symptoms including right upper quadrant pain radiating into her right flank, dry heaving, diarrhea. States that in the past per intermittent but today his continued. Says that last admission she had similar symptoms that resolved prior to discharge but then recurred. Labs and imaging showed a white count of 10.34, hemoglobin of 8.4 is stable, creatinine of 0.8, t bili 0.7, AST ALT of 72/18, alk-phos 378. Complete ultrasound which notes cholelithiasis with gallbladder wall thickness to [address] scan from last admission on 11/09 shows cholelithiasis with large intraparenchymal liver masses. On exam has right quadrant and epigastric as well as right lower quadrant tenderness to palpation.Denied fevers/chills.She has biopsy and potential embolization of liver lesions scheduled for tomorrow. History Obtained From: Patient Past Medical History She has a past medical history of Disease of salivary gland, unspecified and Endometrial cancer (CMS/HCC). Reviewed as documented above Surgical History She has a past surgical history that includes Hysterectomy (N/A) and Tubal ligation (N/A). Reviewed as documented above Family History Family History[1] Reviewed as documented above Social History She reports that she has been smoking. She does not have any smokeless tobacco history on file. No history on file for alcohol use and drug use. Reviewed as documented above Allergies Patient has no known allergies. Reviewed as documented above Medications Current Medications[2] Reviewed as documented above Review of Systems Relevant review of systems was obtained as able and is negative unless stated above in HPI. Last Recorded Vitals Blood pressure (!) 144/93, pulse 79, temperature 37.2 ??C (98.9 ??F), temperature source Oral, resp. rate 18, height 1.753 m (5' 9 ), weight 111 kg (244 lb), SpO2 99%. Physical Exam HENT: Head: Normocephalic and atraumatic. Eyes: Extraocular Movements: Extraocular movements intact. Cardiovascular: Rate and Rhythm: Normal rate. Pulmonary: Effort: No respiratory distress. Abdominal: Palpations: Abdomen is soft. Tenderness: There is abdominal tenderness (RUQ>epigastric>RLQ). Musculoskeletal: General: No deformity. Cervical back: No rigidity. Skin: General: Skin is warm. Neurological: Mental Status: She is alert. Mental status is at baseline. Psychiatric: Mood and Affect: Mood normal. Thought Content: Thought content normal. Recent Results Labs in last 18 hours CBC WBC 12.34 (H) Hb 8.4 (L) Plt 308 Hct 27.1 (L) ANC 10.04 (H) INR 1.2 (H), PTT 26, Anti-Xa ?? BMP Na 137 Cl 102 BUN 10 Glu 89 K 3.6 Co2 20 (L) Cr 0.88 Ca 9.0 iCa ?? Mg ??, Phos ?? Lactate ?? LFT AST 32 AlkPhos 378 (H) T Prot 7.5 ALK 18 Bili 0.7 Alb ?? D.Bili ?? Radiology I personally and independently reviewed the Ultrasound images available at today's visit which showed: stones and gallbladder wall thickness of 4mm Assessment & Plan RUQ abdominal pain Present on Admission: Yes Concern for stones and wall thickness of gallbladder to 4mm. Most recent CT also reviewed with large stone noted. However, she also had large metastatic lesionsto liver. 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) Present on Admission: Yes Metastasis to liver (CMS/HCC) Present on Admission: Yes H/O cholelithiasis Present on Admission: Not Applicable Non-Hospital Problems Calculus of gallbladder without cholecystitis without obstruction Overview Addendum 11/08/2024 3:39 PM by Guille Dent RUQ pain with N/V/D,positive Park's sign, elevated neutrophils, and cholelithiasis on US SBO (small bowel obstruction) (CMS/HCC) H/O cholelithiasis Endometrial cancer (CMS/HCC) Metastasis to liver (CMS/HCC) 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 Vaca, Attending Physician [1] Family History Problem Relation Name Age of Onset Bone cancer Paternal Grandfather Family history of bone cancer Hypertension Father Family history of hypertension Breast cancer Paternal Grandmother FH: breast cancer Breast cancer Maternal Grandmother FH: breast cancer Throat cancer Other FH: throat cancer Throat cancer Other FH: throat cancer [2] Current Facility-Administered Medications Medication Dose Route Frequency Provider Last Rate Last Admin acetaminophen (Tylenol) tablet 500 mg 500 mg Oral q6h LIAT Rebekah Kwan MD lactated Ringer's infusion 75 mL/hr Intravenous Continuous Rebekah Kwan MD methocarbamol (Robaxin) tablet 500 mg 500 mg Oral 4x daily Rebekah Kwan MD ondansetron (Zofran) injection 4 mg 4 mg Intravenous q6h PRN Rebekah Kwan MD ondansetron ODT (Zofran-ODT) disintegrating tablet 4 mg 4 mg Oral q6h PRN Rebekah Kwan MD pantoprazole (Protonix) EC tablet 40 mg 40 mg Oral Daily Rebekah Kwan MD sodium chloride 0.9 % flush 10 mL 10 mL Intravenous q12h Rebekah Kwan MD And sodium chloride 0.9 % flush 10 mL 10 mL Intravenous PRN Rebekah Kwan MD Current Outpatient Medications Medication Sig Dispense Refill [...] for nausea or vomiting. 10 tablet 1 Cosigned by Camila Vaca MD at 11/17/2024 11:18 PM EDT Associated attestation - Camila Vaca MD - 11/17/2024 11:18 PM EDT I saw and evaluated the patient with the resident/fellow. I discussed the case with the resident/fellow and agree with the findings and plan as documented. RUQ pain, concern for cholecystitis on CT imaging. Recently admitted with similar. Picture confounded by large liver masses. I am concerned about acute cholecystitis based on clinical history, exam, elevated WBC and some gallbladder wall thickening. Recommend HIDA to confirm. Would discuss surgery if positive, likely to be more difficult and complex due to liver masses, but feasible * Care Plan - Vivienne Cm RN - 11/17/2024 12:01 PM EDT Problem: Adult Inpatient Plan of Care Goal: Plan of Care Review Outcome: Ongoing, Progressing Flowsheets (Taken 11/18/2024127) Progress: no change Plan of Care Reviewed With: patient family Goal: Patient-Specific Goal (Individualized) Outcome: Ongoing, Progressing Flowsheets (Taken 11/17/20241999) Patient/Family-Specific Goals (Include Timeframe): Pt will remain free of injury during the shift Individualized Care Needs: Pain management Anxieties, Fears or Concerns: Pain Goal: Absence of Hospital-Acquired Illness or Injury Outcome: Ongoing, Progressing Intervention: Identify and Manage Fall Risk Flowsheets (Taken 11/18/2024127) Safety Promotion/Fall Prevention: activity supervised mobility aid in reach room organization consistent clutter-free environment maintained fall prevention program maintained lighting adjusted safety round/check completed Intervention: Prevent Skin Injury Flowsheets (Taken 11/18/2024127) Body Position: weight shifting Skin Protection: incontinence pads utilized Intervention: Prevent and Manage VTE (Venous Thromboembolism) Risk Flowsheets (Taken 11/18/2024127) VTE Prevention/Management: SCDs (sequential compression devices) off previous patient education reinforced education provided Intervention: Prevent Infection Flowsheets (Taken 11/18/2024127) Infection Prevention: cohorting utilized environmental surveillance performed hand hygiene promoted equipment surfaces disinfected rest/sleep promoted single patient room provided Goal: Optimal Comfort and Wellbeing Outcome: Ongoing, Progressing Intervention: Monitor Pain and Promote Comfort Flowsheets (Taken 11/18/2024127) Pain Management Interventions: medication (see MAR) quiet environment facilitated relaxation techniques promoted * ED Provider Notes - Corie Dickson MD - 11/17/2024 12:01 PM EDT - HPI Chief Complaint Patient presents with Vomiting PIT NOTE Radha Aparicio is a 44 y.o. female w h/o endometrial cancer with splenic and hepatic metastasis who presents to the ED with Vomiting. Pt was recently admitted 11/08, has Hx of high grade endometroid adenocarcinoma and CT A/P was performed on 11/09 demonstrated interval increase size of liver lesions and splenic metastatic lesions compared to prior CT from 2023. Pt c/o nausea, vomiting, diarrhea, and right sided abdominal pain. Pt also dx with cholecystitis during previous admission, states her pain feels similar. Pt is scheduled for tumor biopsy and cauterization tomorrow, was advised to present for possible admission. Pt denies fever, chills, headache, dizziness, chest pain, SOA, and urinary symptoms. History provided by: Patient philosophy faculty member used: No I have reviewed and agree with the PIT note. My History, exam, assessment, and plan is documented below. Radha Aparicio is a 44 y.o. female with PMH of endometrial cancer, splenic and hepatic mets, small bowel obstruction, and cholelithiasis who presents here today with Nausea, vomiting, diarrhea, and right upper quadrant abdominal pain. Patient reports initial onset of symptoms approximately 2 weeks ago. She was seen and evaluated in our facility at that time and was found to have numerous liver metastases as well as splenic metastases comparative to imaging from 2023. There was concern for intratumoral hemorrhage within the hepatic lesions, and underwent embolization and biopsy on 11/14, and was discharged from the gynecology oncology service on that day as well. She was additionally found to have cholelithiasis without evidence of cholecystitis. Patient reports that since discharge she has been having continued pain that has been uncontrolled with the medications that were prescribed at discharge, as well as nausea that has not been well controlled with Zofran for the past few days thus resulting in her having difficulty with taking her home medications. She reports few episodes of watery diarrhea as well. She denies any aggravating or relieving factors to her pain. She denies fevers, chills, chest pain, shortness of breath, dysuria, hematuria, or vaginal discharge. Patient History Past Medical History[1] Surgical History[2] Family History[3] Social History[4] Allergies: Allergies[5] Physical Exam ED Triage Vitals [11/17/24 1211] Temp Heart Rate Resp BP 36.6 ??C (97.8 ??F) 99 18 134/70 SpO2 Temp src Heart Rate Source Patient Position 99 % -- -- -- BP Location FiO2 (%) -- -- Physical Exam Vitals and nursing note reviewed. Constitutional: General: She is not in acute distress. Appearance: Normal appearance. She is obese. HENT: Head: Normocephalic and atraumatic. Nose: No rhinorrhea. Mouth/Throat: Mouth: Mucous membranes are moist. Pharynx: Oropharynx is clear. Eyes: General: Right eye: No discharge. Left eye: No discharge. Conjunctiva/sclera: Conjunctivae normal. Pupils: Pupils are equal, round, and reactive to light. Pulmonary: Effort: Pulmonary effort is normal. No respiratory distress. Breath sounds: No stridor. Abdominal: Tenderness: There is abdominal tenderness in the right upper quadrant and epigastric area. There isno guarding or rebound. Musculoskeletal: General: Normal range of motion. Cervical back: No rigidity. Skin: General: Skin is warm and dry. Neurological: Mental Status: She is alert and oriented to person, place, and time. Psychiatric: Mood and Affect: Mood normal. Behavior: Behavior normal. Fabio Coma Scale Score: 15 ED Course & MDM - Assessment: 44 y.o. female presents to ED with complaint of abdominal pain, nausea, vomiting, diarrhea. It should be noted that the chronic conditions includes endometrioid adenocarcinoma, presumed hepatic as well as splenic metastases, which currently is not at goal therapy. This complicates the clinical picture because it Comorbidities: may be exacerbating symptoms, increases the amount and complexity of data to be reviewed, complicates the clinical workup, and increases the risk for morbidity Differential Diagnosis: Intractable pain, gastritis, gastroenteritis, cholelithiasis, cholecystitis In order to fully explore the differential diagnosis the following treatments and tests were ordered: ED Medication Administration from 11/17/2024 1201 to 11/17/2024 1532 Date/Time Order Dose Route Action 11/17/2024 1405 EDT ondansetron (Zofran) injection 8 mg 8 mg Intravenous Given 11/17/2024 1406 EDT lactated Ringer's infusion 1,000 mL 1,000 mL Intravenous New Bag 11/17/2024 1522 EDT morphine PF 4 mg 4 mg Intravenous Given All Other Orders Ordered Status Ordering Provider 11/17/24 1526 Consult to Gynecologic Oncology Once Specialty: Gynecologic Oncology Provider: (Not yet assigned) Ordered CORIE DICKSON 11/17/24 1516 Consult to Emergency General Surgery Once Provider: (Not yet assigned) Acknowledged CORIE DICKSON 11/17/24 1307 CBC w/diff STAT Final result KAREEM GUIDRY 11/17/24 1307 CMP STAT Final result KAREEM GUIDRY 11/17/24 1307 Lipase STAT Final result KAREEM GUIDRY 11/17/24 1307 PT-INR STAT Final result KAREEM GUIDRY 11/17/24 1307 APTT STAT Final result KAREEM GUIDRY 11/17/24 1307 US Abdomen RUQ Once Final result KAREEM GUIDRY 11/17/24 1307 Insert peripheral IV Once Acknowledged KAREEM GUIDRY ED Course as of 11/17/24 1532 Mon Nov 17, 2024 1400 Laboratory studies independently reviewed by myself and pertinent for mild leukocytosis increased from prior, stable anemia. CMP with elevated alkaline phosphatase likely consistent with the patient's known malignancy with metastasis. [RM] 1400 CT AP 11/09/2024 reviewed and notable for: IMPRESSION: Interval increase size of liver lesions and splenic metastatic lesions compared to prior CT from 2023 Redemonstration of borderline retroperitoneal lymph nodes, which are slightly increased in size Small right pleural effusion and adjacent atelectasis. Minimal left basilar atelectasis Cholelithiasis without CT evidence of cholecystitis. [RM] 1524 I had a discussion with General surgery OR nurse as they are currently in OR in a case. Provided with information regarding patient, and they agreed to evaluate. [RM] 1532 I had an interactive discussion with Gynecology Oncology regarding patient's history, current presentation, and the above findings, as well as pending EGS evaluation. They agreed to evaluate [RM] ED Course User Index [RM] Corie Dickson MD Social Determinates of Health Risks (including Economic Stability, Education and level of understanding, Healthcare access and quality and concerning social factors): Lives far away Ultimately, this patient was was signed out to the oncoming provider (Signed Out) Patient care assumed by oncoming provider, Dr. Clemons, at shift change, tentative plan at the time of sign-out was pending consulting service evaluation and recommendations, final disposition. ED Prescriptions None - PIT Date/Time: 11/17/2024, 1:02 PM Entered by Lupe Garcia acting as scribe for Sukhdeep Agosto MD. Attending Attestation: The documentation was recorded by Lupe Garcia acting as scribe in my presence at the time of the encounter and accurately reflects the service I personally performed. Corie Green MD, saw and evaluated the patient with the medical student. I discussed the casewith the medical student and agree with the findings and plan as documented. I personally performedthe examination and medical decision making., [1] Past Medical History: Diagnosis Date Disease [...] Tobacco Use Smoking status: Every Day [5] No Known Allergies Corie Dickson MD Resident 11/17/24 1532 Cosigned by Elisabeth Hernandez MD at 11/19/2024 10:29 AM EDT Associated attestation - Elisabeth Hernandez MD - 11/19/2024 10:29 AM EDT Elisabeth Green MD, personally verified the history, examined the patient, discussed with the student and resident and performed the medical decision making. I agree with the documentation and plan of care. * ED Triage Notes - Tk Aguirre RN - 11/17/2024 12:01 PM EDT Pt complaining of N/V/D, abd pain. Hx of liver cancer, scheduled for a biopsy and cautery tomorrow. * Progress Notes - Edelmira Clemons MD - 11/17/2024 12:01 PM EDT Images from the original note were not included. ED TRANSFER OF CARE NOTE Transferring provider: Corie Dickson Transferring attending: Reyna CHERYL Time: 1419 I received sign-out and accepted care of [...] a 44 y.o. female with relevant PMH endometrial cancer who presented to the ED for evaluation of vomiting. PENDING: I accepted care of this patient from the previous provider while waiting for evaluation and/or recommendations from: OBGYN. Ultimately, the aforementioned service recommended admission to their service ED Medication Administration from 11/17/2024 1201 to 11/17/2024 1731 Date/Time Order Dose Route Action 11/17/2024 1405 EDT ondansetron (Zofran) injection 8 mg 8 mg Intravenous Given 11/17/2024 1406 EDT lactated Ringer's infusion 1,000 mL 1,000 mL Intravenous New Bag 11/17/2024 1522 EDT morphine PF 4 mg 4 mg Intravenous Given ED COURSE: ED Course as of 11/17/24 1733 SunNov 17, 2024 1400 Laboratory studies independently reviewed by myself and pertinent for mild leukocytosis increased from prior, stable anemia. CMP with elevated alkaline phosphatase likely consistent with the patient's known malignancy with metastasis. [RM] 1400 CT AP 11/09/2024 reviewed and notable for: IMPRESSION: Interval increase size of liver lesions and splenic metastatic lesions compared to prior CT from 2023 Redemonstration of borderline retroperitoneal lymph nodes, which are slightly increased in size Small right pleural effusion and adjacent atelectasis. Minimal left basilar atelectasis Cholelithiasis without CT evidence of cholecystitis. [RM] 1524 I had a discussion with General surgery OR nurse as they are currently in OR in a case. Provided with information regarding patient, and they agreed to evaluate. [RM] 1532 I had an interactive discussion with Gynecology Oncology regarding patient's history, current presentation, and the above findings, as well as pending EGS evaluation. They agreed to evaluate [RM] 1636 EGS rec: admission to artist scientific onc vs medicine. recommend HIDA scan to further evaluate if there isconcern for cholecystitis before considering risks and benefits of any intervention that would be needed based on that [PA] 1731 [facility] ON[facility] to admit patient to their team. 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 Patient believed to require admission for the listed diagnoses. The OG [facility] service wasconsulted for admission and was agreeable to admit to Acute Floor (Med/Surg). ED Prescriptions None Disposition Admit Admitting/Attending Physician: VINICIUS LOVE [[id number]] Provider Care Team: [facility] [218] Are they the primary team?: Yes [1] - Edelmira Clemons MD Cosigned by Elisabeth Hernandez MD at 11/19/2024 8:05 AM EDT Associated attestation - Elisabeth Hernandez MD - 11/19/2024 8:05 AM EDT I saw and evaluated the patient with the resident/fellow. I discussed the case with the resident/fellow and agree with the findings and plan as documented. documented in this encounter Plan of Treatment Upcoming Encounters Date Type Department Care Team (Late st Contact Info) Description 03/19/2025 12:10 PM EST Appointment [facility] [address] [place] [id number] 03/19/2025 1:45 PM EST Office Visit [facility]ne[facility] [address] [place] [address] Vinicius Loev MD [address] [place] [address] Pending Results Name Type Priority Associated Diagnoses Date /Time Prepare Leukocyte Reduced RBC: 2 Units Blood Bank Routine 11/18/2024 2:15 PM EDT Prepare Leukocyte Reduced RBC: 1 Units Blood Bank Routine 11/21/2024 6:16 AM EDT documented as of this encounter Procedures Procedure Name Priority Date/Time Associated Diagnosis Comments TRANSFUSE RED BLOOD CELLS Routine 11/21/2024 7:14 AM EDT PREPARE RBC Routine 11/21/2024 6:16 AM EDT IONIZED CALCIUM, SERUM Routine 11/21/2024 3:19 AM EDT CBC W/O DIFFERENTIAL Routine 11/21/2024 3:19 AM EDT PHOSPHORUS, PLASMA STAT Add-on 11/21/2024 3: 19 AM EDT MAGNESIUM, PLASMA Routine 11/21/2024 3:1 9 AM EDT COMPREHENSIVE METABOLIC PANEL, PLASMA Routine 11/21/2024 3:19 AM EDT CBC W/O DIFFERENTIAL Routine 11/20/2024 12:42 PM EDT COMPREHENSIVE METABOLIC PANEL, PLASMA Routine 11/20/2024 12:42 PM EDT TRANSFUSE RED BLOOD CELLS Routine 11/20/2024 6:06 AM EDT PREPARE RBC Routine 11/20/2024 5:27 AM EDT PREPARE RBC Routine 11/20/2024 4:53 AM EDT IONIZED CALCIUM, SERUM Routine 11/20/2024 2:39 AM EDT CBC W/O DIFFERENTIAL Routine 11/20/2024 2:39 AM EDT MAGNESIUM, PLASMA Routine 11/20/2024 2:3 9 AM EDT COMPREHENSIVE METABOLIC PANEL, PLASMA Routine 11/20/2024 2:39 AM EDT NM HEPATOBILIARY SCAN W PHARM CHALLENGE Routine 11/19/2024 4:19 PM EDT IONIZED CALCIUM, SERUM Routine 11/19/2024 4:11 AM EDT CBC W/O DIFFERENTIAL Routine 11/19/2024 4:11 AM EDT MAGNESIUM, PLASMA Routine 11/19/2024 4:1 1 AM EDT COMPREHENSIVE METABOLIC PANEL, PLASMA Routine 11/19/2024 4:11 AM EDT SURGICAL PATHOLOGY EXAM Routine 11/18/2024 3:57 PM EDT IR EMBOLIZATION TUMOR OR ISCHEMIA OR INFARCTION Routine 11/18/2024 3:31 PM EDT Metastasis to liver (CMS/HCC) US GUIDED NEEDLE BIOPSY LIVER Routine 11/18/2024 3:31 PM EDT Metastasis to liver (CMS/HCC) FINE NEEDLE ASPIRATION - CORE BIOPSY Routine 11/18/2024 2:55 PM EDT PREPARE RBC Routine 11/18/2024 2:15 PM EDT TRANSFUSE RED BLOOD CELLS Routine 11/18/2024 10:40 AM EDT TYPE AND SCREEN Routine 11/18/2024 9:33 AM EDT PREPARE RBC Routine 11/18/2024 8:49 AM EDT INSERT PERIPHERAL IV STAT 11/18/2024 7:57 AM EDT HEMOGLOBIN AND HEMATOCRIT, BLOOD STAT 11/18/2024 5:54 AM EDT IONIZED CALCIUM, SERUM Routine 11/18/2024 4:36 AM EDT CBC W/O DIFFERENTIAL Routine 11/18/2024 4:36 AM EDT MAGNESIUM, PLASMA Routine 11/18/2024 4:3 6 AM EDT COMPREHENSIVE METABOLIC PANEL, PLASMA Routine 11/18/2024 4:36 AM EDT US ABDOMEN RUQ STAT 11/17/2024 2:00 PM EDT APTT STAT 11/17/2024 1:25 PM EDT PROTHROMBIN TIME(PT) / INR STAT 11/17/2024 1:25 PM EDT CBC WITH AUTO DIFFERENTIAL STAT 11/17/2024 1:25 PM EDT LIPASE, PLASMA STAT 11/17/2024 1:25 PM EDT COMPREHENSIVE METABOLIC PANEL, PLASMA STAT 11/17/2024 1:25 PM EDT documented in this encounter Results * Transfuse RBC (11/21/2024 9:49 AM EDT) us Vinicius Love MD BLOOD TRANSFUSION ORDERABLES Final Result * Transfuse RBC: 1 Units (11/21/2024 9:49 AM EDT) us Vinicius Love MD BLOOD TRANSFUSION ORDERABLES Final Result * Phosphorus, Plasma (11/21/2024 3:19 AM EDT) Phosphorus, Plasma 3.1 2.5 - 4.5 mg/dL 11/21/2024 5:27 AM EDT [facility] Blood Venous blood specimen / Unknown Venipuncture / Unknown 11/21/2024 3:19 AM EDT 11/21/2024 3:27 AM EDT us Vinicius Love MD LAB BLOOD ORDERABLES Final Re sult Performing Organization Address City/[facility]/[place] [address] * (ABNORMAL) Magnesium (11/21/2024 3:19 AM EDT) Magnesium, Plasma 1.6(L) 1.9 - 2.4 mg/dL 11/21/2024 3:58 AM EDT [facility] Blood Venous blood specimen / Unknown Venipuncture / Unknown 11/21/2024 3:19 AM EDT 11/21/2024 3:27 AM EDT us Vinicius Love MD LAB BLOOD ORDERABLES Final Re sult Performing Organization Address [facility] [place] [address] * (ABNORMAL) IONIZED CALCIUM, SERUM (11/21/2024 3:19 AM EDT) Ionized Calcium, Serum 4.5(L) 4.6 - 5.3 mg/dL LAB HEMATOLOGY METHOD 11/21/2024 3:53 AM EDT [facility] Blood Venous blood specimen / Unknown Venipuncture / Unknown 11/21/2024 3:19 AM EDT 11/21/2024 3:27 AM EDT us Vinicius Love MD LAB BLOOD ORDERABLES Final Re sult Performing Organization Address City/[facility]/[place] [address] * (ABNORMAL) Comprehensive metabolic panel (11/21/2024 3:19 AM EDT) [facility] Glucose, Plasma 116(H) 74 - 99 mg/dL 11/21/2024 3:58 AM EDT [facility] BUN, Plasma 11 7 - 21 mg/dL 11/21/2024 3:58 AM EDT [facility] Creatinine, Plasma 0.77 0.60 - 1.10 mg/dL 11/21/2024 3:58 AM EDT [facility] BUN/Creatinine Ratio 14 11/21/2024 3:58 AM EDT [facility] Sodium, Plasma 137 136 - 145 mmol/L 11/21/2024 3:58 AM EDT [facility] Potassium, Plasma 3.4(L) 3.6 - 4.9 mmol/L 11/21/2024 3:58 AM EDT [facility] Chloride, Plasma 103 97 - 107 mmol/L 11/21/2024 3:58 AM EDT [facility] CO2, Plasma 21(L) 22 - 29 mmol/L 11/21/2024 3:58 AM EDT [facility] Anion Gap 13 6 - 16 mmol/L 11/21/2024 3:58 AM EDT [facility] Total Calcium, Plasma 7.9(L) 8.9 - 10.2 mg/dL 11/21/2024 3:58 AM EDT [facility] Total Protein 5.7(L) 6.3 - 7.9 g/dL 11/21/2024 3:58 AM EDT [facility] Albumin, Plasma 2.4(L) 3.5 - 5.2 g/dL 11/21/2024 3:58 AM EDT [facility] AST, Plasma 188(H) 10 - 35 U/L 11/21/2024 3:58 AM EDT [facility] ALT, Plasma 167(H) 10 - 35 U/L 11/21/2024 3:58 AM EDT [facility] Alkaline Phosphatase, Plasma 505(H) 35 - 104 U/L 11/21/2024 3:58 AM EDT [facility] Total Bilirubin, Plasma 1.0 0.2 - 1.1 mg/dL 11/21/2024 3:58 AM EDT [facility] eGFRcr 96.5 mL/min/1.7 3m*2 11/21/2024 3:58 AM EDT [facility] Comment:Reported eGFRcr in m L/min/1.73m2 is based the CKD-EPI 2020 equation that does not use a race coefficient. Blood Venous blood specimen / Unknown Venipuncture / Unknown 11/21/2024 3:19 AM EDT 11/21/2024 3:27 AM EDT us Vinicius Love MD LAB BLOOD ORDERABLES Final Re sult [facility] [address] [place] [address] * (ABNORMAL) CBC W/O Differential (11/21/2024 3:19 AM EDT) WBC Count 12.55(H) 3.70 - 10.30 10*3/uL LAB HEMATOLOGY METHOD 11/21/2024 3:35 AM EDT [facility] RBC Count 2.70(L) 3.90 - 5.20 10*6/uL LAB HEMATOLOGY METHOD 11/21/2024 3:35 AM EDT [facility] HGB 7.3(L) 11.2 - 15.7 g/dL LAB HEMATOLOGY METHOD 11/21/2024 3:35 AM EDT [facility] HCT 22.1(L) 34.0 - 45.0 % LAB HEMATOLOGY METHOD 11/21/2024 3:35 AM EDT [facility] Platelet Count 236 155 - 369 10*3/uL LAB HEMATOLOGY METHOD 11/21/2024 3:35 AM EDT [facility] MCV 82 79 - 98 fL LAB HEMATOLOGY METHOD 11/21/2024 3:35 AM EDT [facility] MCH 27.0 26.0 - 32.0 pg LAB HEMATOLOGY METHOD 11/21/2024 3:35 AM EDT [facility] MCHC 33.0 30.7 - 35.5 g/dL LAB HEMATOLOGY METHOD 11/21/2024 3:35 AM EDT [facility] RDW 16.0(H) 11.5 - 14.5 % LAB HEMATOLOGY METHOD 11/21/2024 3:35 AM EDT [facility] MPV 9.7 8.8 - 12.5 fL LAB HEMATOLOGY METHOD 11/21/2024 3:35 AM EDT [facility] nRBC 0.0 <=0.0 per 100 WBCs LAB HEMATOLOGY METHOD 11/21/2024 3:35 AM EDT [facility] Blood Venous blood specimen / Unknown Venipuncture / Unknown 11/21/2024 3:19 AM EDT 11/21/2024 3:28 AM EDT us Vinicius Love MD LAB BLOOD ORDERABLES Final Re sult [facility] [address] [place] [address] * (ABNORMAL) Comprehensive metabolic panel (11/20/2024 12:42 PM EDT) Glucose, Plasma 119(H) 74 - 99 mg/dL 11/20/2024 1:49 PM EDT [facility] BUN, Plasma 13 7 - 21 mg/dL 11/20/2024 1:49 PM EDT [facility] Creatinine, Plasma 0.79 0.60 - 1.10 mg/dL 11/20/2024 1:49 PM EDT [facility] BUN/Creatinine Ratio 16 11/20/2024 1:49 PM EDT [facility] Sodium, Plasma 135(L) 136 - 145 mmol/L 11/20/2024 1:49 PM EDT [facility] Potassium, Plasma 3.8 3.6 - 4.9 mmol/L 11/20/2024 1:49 PM EDT [facility] Chloride, Plasma 103 97 - 107 mmol/L 11/20/2024 1:49 PM EDT [facility] CO2, Plasma 20(L) 22 - 29 mmol/L 11/20/2024 1:49 PM EDT [facility] Anion Gap 12 6 - 16 mmol/L 11/20/2024 1:49 PM EDT [facility] Total Calcium, Plasma 8.1(L) 8.9 - 10.2 mg/dL 11/20/2024 1:49 PM EDT [facility] Total Protein 6.3 6.3 - 7.9 g/dL 11/20/2024 1:49 PM EDT [facility] Albumin, Plasma 2.7(L) 3.5 - 5.2 g/dL 11/20/2024 1:49 PM EDT [facility] AST, Plasma 442(H) 10 - 35 U/L 11/20/2024 1:49 PM EDT [facility] ALT, Plasma 254(H) 10 - 35 U/L 11/20/2024 1:49 PM EDT [facility] Alkaline Phosphatase, Plasma 513(H) 35 - 104 U/L 11/20/2024 1:49 PM EDT [facility] Total Bilirubin, Plasma 1.1 0.2 - 1.1 mg/dL 11/20/2024 1:49 PM EDT [facility] eGFRcr 93.6 mL/min/1.7 3m*2 11/20/2024 1:49 PM EDT [facility] Comment:Reported eGFRcr in m L/min/1.73m2 is based the CKD-EPI 2020 equation that does not use a race coefficient. Blood Venous blood specimen / Unknown Venipuncture / Unknown 11/20/2024 12:42 PM EDT 11/20/2024 1:11 PM EDT us Vinicius Love MD LAB BLOOD ORDERABLES Final Re sult [facility] [address] [place] [address] * (ABNORMAL) CBC W/O Differential (11/20/2024 12:42 PM EDT) WBC Count 15.25(H) 3.70 - 10.30 10*3/uL LAB HEMATOLOGY METHOD 11/20/2024 1:23 PM EDT [facility] RBC Count 3.09(L) 3.90 - 5.20 10*6/uL LAB HEMATOLOGY METHOD 11/20/2024 1:23 PM EDT [facility] HGB 8.5(L) 11.2 - 15.7 g/dL LAB HEMATOLOGY METHOD 11/20/2024 1:23 PM EDT [facility] HCT 25.5(L) 34.0 - 45.0 % LAB HEMATOLOGY METHOD 11/20/2024 1:23 PM EDT [facility] Platelet Count 292 155 - 369 10*3/uL LAB HEMATOLOGY METHOD 11/20/2024 1:23 PM EDT [facility] MCV 83 79 - 98 fL LAB HEMATOLOGY METHOD 11/20/2024 1:23 PM EDT [facility] MCH 27.5 26.0 - 32.0 pg LAB HEMATOLOGY METHOD 11/20/2024 1:23 PM EDT [facility] MCHC 33.3 30.7 - 35.5 g/dL LAB HEMATOLOGY METHOD 11/20/2024 1:23 PM EDT [facility] RDW 15.9(H) 11.5 - 14.5 % LAB HEMATOLOGY METHOD 11/20/2024 1:23 PM EDT [facility] MPV 9.7 8.8 - 12.5 fL LAB HEMATOLOGY METHOD 11/20/2024 1:23 PM EDT [facility] nRBC 0.0 <=0.0 per 100 WBCs LAB HEMATOLOGY METHOD 11/20/2024 1:23 PM EDT [facility] Blood Venous blood specimen / Unknown Venipuncture / Unknown 11/20/2024 12:42 PM EDT 11/20/2024 1:06 PM EDT Vinicius Love MD LAB BLOOD ORDERABLES Final Re sult [facility] [address] [place] [address] * Transfuse RBC (11/20/2024 10:47 AM EDT) us Vinicius Love MD BLOOD TRANSFUSION ORDERABLES Final Result * Transfuse RBC: 1 Units (11/20/2024 10:47 AM EDT) us Vinicius Love MD BLOOD TRANSFUSION ORDERABLES Final Result * Prepare Leukocyte Reduced RBC: 1 Units (11/20/2024 5:27 AM EDT) Product Code [id number] CH BLOO D BANK Dispense Status Transfused BLOOD BANK Blood Expiration Date [id number] BLOOD BANK Unit Number [id number] CH B LOOD BANK Product Blood Type 5100 BLOOD BANK Blood Type O+ CH BLOOD BANK Crossmatch Compatible BLOOD BANK Other Vinicius Love MD BLOOD BANK PRODUCT ORDERABLES Final Result Performing Organization Address City/[facility]/ZIP Co de Phone Number BLOOD BANK [address] * Prepare Leukocyte Reduced RBC: 1 Units (11/20/2024 4:53 AM EDT) Product Code [id number] BLOO D BANK Dispense Status Transfused BLOOD BANK Blood Expiration Date [id number] BLOOD BANK Unit Number [id number] B LOOD BANK Product Blood Type 5100 BLOOD BANK Blood Type O+ BLOOD BANK Crossmatch Compatible BLOOD BANK Other Vinicius Love MD BLOOD BANK PRODUCT ORDERABLES Final Result Performing Organization Address [facility] Co de Phone Number BLOOD BANK [address] * (ABNORMAL) Magnesium (11/20/2024 2:39 AM EDT) Magnesium, Plasma 1.7(L) 1.9 - 2.4 mg/dL 11/20/2024 4:00 AM EDT [facility] Blood Venous blood specimen / Unknown Venipuncture / Unknown 11/20/2024 2:39 AM EDT 11/20/2024 3:28 AM EDT Vinicius Love MD LAB BLOOD ORDERABLES Final Re sult Performing Organization Address City/[facility]/ZIP Co de Phone Number [facility] [address] [place] [address] * IONIZED CALCIUM, SERUM (11/20/2024 2:39 AM EDT) Ionized Calcium, Serum 4.6 4.6 - 5.3 mg/dL LAB HEMATOLOGY METHOD 11/20/2024 4:06 AM EDT [facility] Blood Venous blood specimen / Unknown Venipuncture / Unknown 11/20/2024 2:39 AM EDT 11/20/2024 3:28 AM EDT us Vinicius Love MD LAB BLOOD ORDERABLES Final Re sult [facility] [address] [place] [address] * (ABNORMAL) Comprehensive metabolic panel (11/20/2024 2:39 AM EDT) Pathologist [facility] Glucose, Plasma 108(H) 74 - 99 mg/dL 11/20/2024 4:17 AM EDT [facility] BUN, Plasma 15 7 - 21 mg/dL 11/20/2024 4:17 AM EDT [facility] Creatinine, Plasma 0.91 0.60 - 1.10 mg/dL 11/20/2024 4:17 AM EDT [facility] BUN/Creatinine Ratio 16 11/20/2024 4:17 AM EDT [facility] Sodium, Plasma 139 136 - 145 mmol/L 11/20/2024 4:17 AM EDT [facility] Potassium, Plasma 3.9 3.6 - 4.9 mmol/L 11/20/2024 4:17 AM EDT [facility] Chloride, Plasma 105 97 - 107 mmol/L 11/20/2024 4:17 AM EDT [facility] CO2, Plasma 22 22 - 29 mmol/L 11/20/2024 4:17 AM EDT [facility] Anion Gap 12 6 - 16 mmol/L 11/20/2024 4:17 AM EDT [facility] Total Calcium, Plasma 8.0(L) 8.9 - 10.2 mg/dL 11/20/2024 4:17 AM EDT [facility] Total Protein 6.0(L) 6.3 - 7.9 g/dL 11/20/2024 4:17 AM EDT [facility] Albumin, Plasma 2.5(L) 3.5 - 5.2 g/dL 11/20/2024 4:17 AM EDT [facility] AST, Plasma 701(H) 10 - 35 U/L 11/20/2024 4:17 AM EDT [facility] ALT, Plasma 326(H) 10 - 35 U/L 11/20/2024 4:17 AM EDT [facility] Alkaline Phosphatase, Plasma 478(H) 35 - 104 U/L 11/20/2024 4:17 AM EDT [facility] Total Bilirubin, Plasma 0.7 0.2 - 1.1 mg/dL 11/20/2024 4:17 AM EDT [facility] eGFRcr 79.0 mL/min/1.7 3m*2 11/20/2024 4:17 AM EDT [facility] Comment:Reported eGFRcr in m L/min/1.73m2 is based the CKD-EPI 2020 equation that does not use a race coefficient. Blood Venous blood specimen / Unknown Venipuncture / Unknown 11/20/2024 2:39 AM EDT 11/20/2024 3:28 AM EDT us Vinicius Love MD LAB BLOOD ORDERABLES Final Re sult [facility] [address] [place] [address] * (ABNORMAL) CBC W/O Differential (11/20/2024 2:39 AM EDT) WBC Count 10.93(H) 3.70 - 10.30 10*3/uL LAB HEMATOLOGY METHOD 11/20/2024 3:40 AM EDT [facility] RBC Count 2.57(L) 3.90 - 5.20 10*6/uL LAB HEMATOLOGY METHOD 11/20/2024 3:40 AM EDT [facility] HGB 6.7(L) 11.2 - 15.7 g/dL LAB HEMATOLOGY METHOD 11/20/2024 3:40 AM EDT [facility] HCT 21.2(L) 34.0 - 45.0 % LAB HEMATOLOGY METHOD 11/20/2024 3:40 AM EDT [facility] Platelet Count 261 155 - 369 10*3/uL LAB HEMATOLOGY METHOD 11/20/2024 3:40 AM EDT [facility] MCV 83 79 - 98 fL LAB HEMATOLOGY METHOD 11/20/2024 3:40 AM EDT [facility] MCH 26.1 26.0 - 32.0 pg LAB HEMATOLOGY METHOD 11/20/2024 3:40 AM EDT [facility] MCHC 31.6 30.7 - 35.5 g/dL LAB HEMATOLOGY METHOD 11/20/2024 3:40 AM EDT [facility] RDW 16.5(H) 11.5 - 14.5 % LAB HEMATOLOGY METHOD 11/20/2024 3:40 AM EDT [facility] MPV 10.1 8.8 - 12.5 fL LAB HEMATOLOGY METHOD 11/20/2024 3:40 AM EDT [facility] nRBC 0.0 <=0.0 per 100 WBCs LAB HEMATOLOGY METHOD 11/20/2024 3:40 AM EDT [facility] Blood Venous blood specimen / Unknown Venipuncture / Unknown 11/20/2024 2:39 AM EDT 11/20/2024 3:24 AM EDT us Vinicius Love MD LAB BLOOD ORDERABLES Final Re sult [facility] [address] [place] [address] * NM Hepatobiliary Scan w Pharm Challenge (11/19/2024 4:19 PM EDT) Anatomical Region Laterality Modality Abdomen Nuclear Medicine Impressions 11/19/2024 5:29 PM EDT Patent cystic duct. No acute cholecystitis. Patent common bile duct. Objectively, abnormal gallbladder motor function with abnormal ejection fraction in response to Ensure Plus challenge, supporting diagnosis of chronic cholecystitis or biliary dyskinesia in this clinical setting. CRITICAL RESULT: No. COMMUNICATION: Per this written report. By electronically signing this report, I, the attending physician, attest that I have personally reviewed the images/data for the above examination(s) and agree with the final edited report. Drafted by John Clark MD on 11/19/2024 4:35 PM Final report signed by Salvador Mcdonald MD on 11/19/2024 5:29 PM Narrative 11/19/2024 5:29 PM EDT CLINICAL INDICATION: Biliary colic, recurrent, gallbladder dyskinesis suspected. On 11/19/2024, total bilirubin level was 0.7 mg/dL. TECHNIQUE: Preparation: Fasting for 6-24 hours. Premedication (due to prolonged fasting): At least 30 minutes before radiopharmaceutical, 2.3 ug of CCK octapeptide (sincalide, Kinevac) infused intravenously over 10-15 minutes. Immediately following intravenous administration of 4 mCi of Tc-99m SIMONA (Choletec), dynamic images of the abdomen were acquired in the anterior projection for 60 minutes. Static anterior, posterior and/or lateral images of the abdomen were acquired at approximately 150 minutes. Ensure Plus Challenge: Upon confirming near-complete hepatobiliary clearance and maximal gallbladder activity, the patient ingested 1 can (237 mL) of Ensure Plus. Oral Ensure Plus was employed due to a cleat feeder shortage of intravenous CCK (sincalide). At 60 minutes post-ingestion, static images of the gallbladder was acquired in the same anterior and/or left anterior oblique projection(s). The gallbladder ejection fraction was calculated. Patient symptomatology was recorded by the technologist. COMPARISON/CORRELATION: No comparison. Correlated with right upper quadrant abdominal ultrasound 11/17/[address] abdomen and pelvis 11/09/2024. FINDINGS: Blood Pool Activity: Clears. Hepatocyte Function: Physiological. Gallbladder: Prompt visualization. Pericholecystic Rim Sign: Absent. Ensure Plus Challenge: Gallbladder does not respond appropriately; gallbladder ejection fraction is 22% (expected > 40%). Biliary Excretion into Small Intestine: Visualization. Duodenogastric Bile Reflux: Absent. Procedure Note Salvador Mays MD - 11/19/2024 CLINICAL INDICATION: Biliary colic, recurrent, gallbladder dyskinesis suspected. On 11/19/2024,total bilirubin level was 0.7 mg/dL. TECHNIQUE: Preparation: Fasting for 6-24 hours. Premedication (due to prolonged fasting): At least 30 minutes beforeradiopharmaceutical, 2.3 ug of CCK octapeptide (sincalide, Kinevac)infused intravenously over 10-15 minutes. Immediately following intravenous administration of 4 mCi of Tc-99m SIMONA(Choletec), dynamic images of the abdomen were acquired in the anteriorprojection for 60 minutes. Static anterior, posterior and/or lateralimages of the abdomen were acquired at approximately 150 minutes. Ensure Plus Challenge: Upon confirming near-complete hepatobiliaryclearance and maximal gallbladder activity, the patient ingested 1 can(237 mL) of Ensure Plus. Oral Ensure Plus was employed due to amanufacturer shortage of intravenous CCK (sincalide). At 60 minutespost-ingestion, static images of the gallbladder was acquired in the sameanterior and/or left anterior oblique projection(s). The gallbladderejection fraction was calculated. Patient symptomatology was recorded bythe technologist. COMPARISON/CORRELATION: No comparison. Correlated with right upper quadrant abdominal ultrasound11/17/[address] abdomen and pelvis 11/09/2024. FINDINGS: Blood Pool Activity: Clears. Hepatocyte Function: Physiological. Gallbladder: Prompt visualization. Pericholecystic Rim Sign: Absent. Ensure Plus Challenge: Gallbladder does not respond appropriately;gallbladder ejection fraction is 22% (expected > 40%). Biliary Excretion into Small Intestine: Visualization. Duodenogastric Bile Reflux: Absent. IMPRESSION: Patent cystic duct. No acute cholecystitis. Patent common bile duct. Objectively, abnormal gallbladder motor function with abnormal ejectionfraction in response to Ensure Plus challenge, supporting diagnosis ofchronic cholecystitis or biliary dyskinesia in this clinical setting. CRITICAL RESULT: No. COMMUNICATION: Per this written report. By electronically signing this report, I, the attending physician, attestthat I have personally reviewed the images/data for the aboveexamination(s) and agree with the final edited report. Drafted by John Clark MD on 11/19/2024 4:35 PM Final report signed by Salvador Mcdonald MD on 11/19/2024 5:29 PM us Vinicius Love MD [facility] PROCEDURES Final Resul t * Magnesium (11/19/2024 4:11 AM EDT) Magnesium, Plasma 2.0 1.9 - 2.4 mg/dL 11/19/2024 5:24 AM EDT [facility] Blood Venous blood specimen / Unknown Venipuncture / Unknown 11/19/2024 4:11 AM EDT 11/19/2024 4:17 AM EDT us Vinicius Love MD LAB BLOOD ORDERABLES Final Re sult Performing Organization Address [facility] Co de Phone Number [facility] [address] [place] [address] * IONIZED CALCIUM, SERUM (11/19/2024 4:11 AM EDT) Ionized Calcium, Serum 4.7 4.6 - 5.3 mg/dL LAB HEMATOLOGY METHOD 11/19/2024 4:45 AM EDT [facility] Blood Venous blood specimen / Unknown Venipuncture / Unknown 11/19/2024 4:11 AM EDT 11/19/2024 4:17 AM EDT us Vinicius Love MD LAB BLOOD ORDERABLES Final Re sult Performing Organization Address [facility] Co de Phone Number [facility] [address] [place] [address] * (ABNORMAL) Comprehensive metabolic panel (11/19/2024 4:11 AM EDT) Glucose, Plasma 118(H) 74 - 99 mg/dL 11/19/2024 5:24 AM EDT [facility] BUN, Plasma 11 7 - 21 mg/dL 11/19/2024 5:24 AM EDT [facility] Creatinine, Plasma 0.79 0.60 - 1.10 mg/dL 11/19/2024 5:24 AM EDT [facility] BUN/Creatinine Ratio 14 11/19/2024 5:24 AM EDT [facility] Sodium, Plasma 139 136 - 145 mmol/L 11/19/2024 5:24 AM EDT [facility] Potassium, Plasma 4.4 3.6 - 4.9 mmol/L 11/19/2024 5:24 AM EDT [facility] Chloride, Plasma 104 97 - 107 mmol/L 11/19/2024 5:24 AM EDT [facility] CO2, Plasma 20(L) 22 - 29 mmol/L 11/19/2024 5:24 AM EDT [facility] Anion Gap 15 6 - 16 mmol/L 11/19/2024 5:24 AM EDT [facility] Total Calcium, Plasma 8.4(L) 8.9 - 10.2 mg/dL 11/19/2024 5:24 AM EDT [facility] Total Protein 6.9 6.3 - 7.9 g/dL 11/19/2024 5:24 AM EDT [facility] Albumin, Plasma 3.0(L) 3.5 - 5.2 g/dL 11/19/2024 5:24 AM EDT [facility] AST, Plasma 1,474(H) 10 - 35 U/L 11/19/2024 5:24 AM EDT [facility] ALT, Plasma 388(H) 10 - 35 U/L 11/19/2024 5:24 AM EDT [facility] Alkaline Phosphatase, Plasma 321(H) 35 - 104 U/L 11/19/2024 5:24 AM EDT [facility] Total Bilirubin, Plasma 0.7 0.2 - 1.1 mg/dL 11/19/2024 5:24 AM EDT [facility] eGFRcr 93.6 mL/min/1.7 3m*2 11/19/2024 5:24 AM EDT [facility] Comment:Reported eGFRcr in m L/min/1.73m2 is based the CKD-EPI 2020 equation that does not use a race coefficient. Blood Venous blood specimen / Unknown Venipuncture / Unknown 11/19/2024 4:11 AM EDT 11/19/2024 4:17 AM EDT us Vinicius Love MD LAB BLOOD ORDERABLES Final Re sult [facility] [address] [place] [address] * (ABNORMAL) CBC W/O Differential (11/19/2024 4:11 AM EDT) WBC Count 10.74(H) 3.70 - 10.30 10*3/uL LAB HEMATOLOGY METHOD 11/19/2024 4:37 AM EDT [facility] RBC Count 2.90(L) 3.90 - 5.20 10*6/uL LAB HEMATOLOGY METHOD 11/19/2024 4:37 AM EDT [facility] HGB 7.8(L) 11.2 - 15.7 g/dL LAB HEMATOLOGY METHOD 11/19/2024 4:37 AM EDT [facility] HCT 24.5(L) 34.0 - 45.0 % LAB HEMATOLOGY METHOD 11/19/2024 4:37 AM EDT [facility] Platelet Count 249 155 - 369 10*3/uL LAB HEMATOLOGY METHOD 11/19/2024 4:37 AM EDT [facility] MCV 85 79 - 98 fL LAB HEMATOLOGY METHOD 11/19/2024 4:37 AM EDT [facility] MCH 26.9 26.0 - 32.0 pg LAB HEMATOLOGY METHOD 11/19/2024 4:37 AM EDT [facility] MCHC 31.8 30.7 - 35.5 g/dL LAB HEMATOLOGY METHOD 11/19/2024 4:37 AM EDT [facility] RDW 16.1(H) 11.5 - 14.5 % LAB HEMATOLOGY METHOD 11/19/2024 4:37 AM EDT [facility] MPV 10.1 8.8 - 12.5 fL LAB HEMATOLOGY METHOD 11/19/2024 4:37 AM EDT [facility] nRBC 0.0 <=0.0 per 100 WBCs LAB HEMATOLOGY METHOD 11/19/2024 4:37 AM EDT [facility] Blood Venous blood specimen / Unknown Venipuncture / Unknown 11/19/2024 4:11 AM EDT 11/19/2024 4:17 AM EDT us Vinicius Love MD LAB BLOOD ORDERABLES Final Re sult [facility] [address] [place] [address] * Surgical Pathology Exam (11/18/2024 3:57 PM EDT) Case Report Surgical Pathology Case: [id number] Authorizing Provider: Franko Nava MD Collected: 11/18/2024 5429 Ordering Location: [facility] Emergency Department Received: 11/18/2024 1620 Pathologist: Geovanny Gomes DO Specimen: Liver 5 5:03 PM EDT [facility] Final Diagnosis LIVER, BIOPSY: - POSITIVE FOR METASTATIC CARCINOMA (SEE COMMENT). 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 Also noted is the imaging findings of interval increase size of liver lesions and splenic metastatic lesions compared to prior CT from 2023 . The biopsied material shows a tumor with gland formation and vague areas of spindle morphology. Immunostains show the tumor to stain positive for CK7, PAX-8 and ER. Though the morphology is not identical to that seen in the prior tumor from 2018, the staining pattern is compatible with the prior tumor. Therefore the overall clinicopathologic findings are most consistent with metastatic carcinoma from the patient's prior high grade endometrioid adenocarcinoma. 5 5:03 PM EDT [facility] Clinical Information mets to the liver 5 5:03 PM EDT [facility] Special and Immunohistochemical Stains IHC: A1-2 CK7: Positive in tumor cells. A1-3 PAX8: Positive in tumor cells. A1-4 ER Non-Quantitative: Positive in tumor cells. All controls show appropriate reactivity. All immunohistochemist ry, in situ hybridization, and histochemical tests were developed by and are performed at the [facility], [address] [place] [address]. All tests reported here, except those addressing HER2 (breast) and PD-L1 expression as predictive markers, have not been cleared by or approved by the US Food and Drug Administration (FDA). The FDA has determined that such clearance or approval is not necessary. The laboratory is regulated under CLIA as qualified to perform high-complexity testing. The tests are used for clinical purposes. They should not be regarded as investigational or for research. This assay has not been validated on decalcified tissues. Results should be interpreted with caution given the likelihood of false negativity on decalcified specimens. 5:03 PM EDT [facility] Gross Description A. LIVER Received in formalin labeled [place] iver , are multiple red-rosales soft tissue cores measuring from 0.3 cm to 1.5 cm in length and up to 0.1 cm in diameter. Entirely submitted in cassette A1. Cold Time: 0 Ro Mcallister 5:03 PM EDT [facility] Intradepartmental Consultation with Agreement Dr. Fuentes 5:03 PM EDT [facility] Note: A resident was involved in the service. I attest I examined the relevant preparations for the specimens and confirmed the diagnosis or interpretation. 5:03 PM EDT [facility] Tissue Liver structure / Unknown Non-blood Collection / Unknown 11/18/2024 3:57 PM EDT 11/18/2024 4:20 PM EDT us Franko Nava MD LAB PATHOLOGY ORDERABLES Fin al Result [facility] [address] [place] [address] * US Guided Needle Biopsy Liver (11/18/2024 [...] concern for intratumoral hemorrhage. Patient presents to [facility] for bland embolization of tumor. Additionally, rebiopsy of liver mass is planned due to possible progression. TECHNIQUE: Capacity Planning Manager: Franko Nava MD Secondary Club Concierge: Luis Miguel Estes M.D. Rad Dose: [id number] [...] arterial soft tissues. A 5 mm transverse beatrsi was placed in the skin. Ultrasound guidance [...] PACS. After standard exchanges, a 0.035 inch Mobuleson wire was advanced. Access was secured using a 5 F vascular sheath. Using a 5 Swazi contra 2 catheter, the celiac axis was [...] concern for intratumoral hemorrhage. Patient presents to [facility] [place] embolization of tumor. Additionally, rebiopsy of liver mass isplanned due to possible progression. TECHNIQUE: Capacity Planning Manager: Franko Nava MD Secondary Club Concierge: Luis Miguel Estes M.D. Rad Dose: 1674 [...] 5 F vascular sheath. Using a 5 Swazi contra 2catheter, the celiac axis was catheterized. [...] 11/20/2024 12:24 PM us Franko Nava MD [facility] PROCEDURES Final Resu lt * IR [...] concern for intratumoral hemorrhage. Patient presents to [facility] for bland embolization of tumor. Additionally, rebiopsy of liver mass is planned due to possible progression. TECHNIQUE: Capacity Planning Manager: Franko Nava MD Secondary Club Concierge: Luis Miguel Estes M.D. Rad Dose: 1674 [...] 5 F vascular sheath. Using a 5 Swazi contra 2 catheter, the celiac axis was [...] concern for intratumoral hemorrhage. Patient presents to [facility] embolization of tumor. Additionally, rebiopsy of liver mass isplanned due to possible progression. TECHNIQUE: Capacity Planning Manager: Franko Nava MD Secondary Club Concierge: Luis Miguel Estes M.D. Rad Dose: 1674 [...] 5 F vascular sheath. Using a 5 Swazi contra 2catheter, the celiac axis was catheterized. [...] IMG IR PROCEDURES Final Resu lt * Fine needle aspiration - Core Biopsy (11/18/2024 2:55 PM EDT) Case Report Cytology Case: [id number] Authorizing Provider: Franko Nava MD Collected: 11/18/2024 1455 Ordering Location: [facility] Emergency Department Received: 11/18/2024 1520 Specimen: Liver, LIVER, CT GUIDED CORE BIOPSY 3:41 PM EDT [facility] Final Diagnosis A. 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 CT scan shows increase in the size of the hepatic dome lesions (the most cranial lesion: 15 cm vs 5 cm in 2023, the most anterior and inferior lesion: 10 cm vs 8 cm in 2023) The cell block demonstrates tumor with variable morphology including areas with an epithelioid appearance and the suggestion of gland formation to other areas that have a more spindled appearance. While the morphology is not identical to the previous surgical specimen ([id number]), the staining pattern noted below is identical to the previous tumor. 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 Material is present in the cell block for ancillary testing as clinically indicated. 3:41 PM EDT [facility] Special and Immunohistochemical Stains IHC: A1-1 CK-AE1/AE3 Positive A1-2 PAX8 Positive A1-3 ER Non-Quantitative Positive, moderate intensity in the majority of the cells A1-4 TN Non-Quantitative Rare positive cells, weak intensity A1-5 Androgen Receptor Positive, variable All controls show appropriate reactivity. All immunohistochemis try, in situ hybridization, and histochemical tests were developed by and are performed at the [facility], [address] [place] [address]. All tests reported here, except those addressing HER2 (breast) and PD-L1 expression as predictive markers, have not been cleared by or approved by the US Food and Drug Administration (FDA). The FDA has determined that such clearance or approval is not necessary. The laboratory is regulated under CLIA as qualified to perform high-complexity testing. The tests are used for clinical purposes. They should not be regarded as investigational or for research. This assay has not been validated on decalcified tissues. Results should be interpreted with caution given the likelihood of false negativity on decalcified specimens. 5 3:41 PM EDT [facility] Intradepartmental Consultation with Agreement Dr. Fuentes 5 3:41 PM EDT [facility] Immediate Evaluation Core biopsy performed by: Dr. Nava Number of sticks: 5 This service has been rendered in part by a resident. A pathologist has personally reviewed the slides/tissue and has rendered and is responsible for diagnosis for the diagnosis that appears on the report. 5 3:41 PM EDT [facility] Clinical History metastesis to liver 5 3:41 PM EDT [facility] Procedure Type US 5 3:41 PM EDT [facility] Size/Description of Lesion liver tumor 5 3:41 PM EDT [facility] Cancer History Yes 5 3:41 PM EDT [facility] Gross Description A. LIVER, CT GUIDED CORE BIOPSY Multiple white rosales cores of friable tissue, all measuring less than 0.1 cm in diameter and ranging from 0.01 cm to 0.50 cm in length, entirely submitted in screened rosales cassette. Received 0 touch prep diff slides. Specimen was placed in formalin at 3:09 pm in cytology, and then taken to histology at 4:30 pm where it received an additional 3 hours of formalin fixation. Cold Time: 13m 3:41 PM EDT [facility] Note: A resident was involved in the service. I attest I examined the relevant preparations for the specimens and confirmed the diagnosis or interpretation. 3:41 PM EDT [facility] Clinical Information No Dx found. 3:41 PM EDT [facility] Fine Needle Aspirate Liver structure / Unknown Non-blood Collection / Unknown 11/18/2024 2:55 PM EDT 11/18/2024 3:20 PM EDT Franko Nava MD LAB CYTOLOGY ORDERABLES Sonali l Result [facility] [address] [place] [address] * Transfuse RBC (11/18/2024 1:00 PM EDT) Vinicius Love MD BLOOD TRANSFUSION ORDERABLES Final Result * Transfuse RBC: 1 Units (11/18/2024 1:00 PM EDT) Vinicius Love MD BLOOD TRANSFUSION ORDERABLES Final Result * Type and screen (11/18/2024 9:33 AM EDT) ABO/Rh O Positive 11/18/2024 8:48 AM EDT [facility] Antibody Screen Negative 11/18/2024 8:48 AM EDT [facility] Specimen Expiration 11/21/2024 23:59 11/18/2024 8:48 AM EDT [facility] Blood Venous blood specimen / Unknown Venipuncture / Unknown 11/18/2024 9:33 AM EDT 11/18/2024 9:41 AM EDT Vinicius Love MD LAB BLOOD BANK TEST ORDERABLE S Final Result Performing Organization Address City/[facility]/ZIP Co de Phone Number [facility]ANK [address] [place] [address], [place] * Prepare Leukocyte Reduced RBC: 1 Units (11/18/2024 8:49 AM EDT) Product Code [id number] BLOO D BANK Dispense Status Transfused BLOOD BANK Blood Expiration Date [id number] BLOOD BANK Unit Number [id number] B LOOD BANK Product Blood Type 5100 BLOOD BANK Blood Type O+ BLOOD BANK Crossmatch Compatible BLOOD BANK Other Vinicius Love MD BLOOD BANK PRODUCT ORDERABLES Final Result Performing Organization Address City/State/[facility] Co de Phone Number BLOOD BANK [address] * PERIPHERAL IV (SMARTFORM LINK) (11/18/2024 7:57 AM EDT) Narrative Lupe Hernández RN - 11/18/2024 7:57 AM EDT Lupe Hernández RN 11/18/2024 7:57 AM Insert peripheral IV Performed by: Lupe Hernández RN Authorized by: Kareem Guidry MD Hand hygiene: Hand hygiene performed prior to insertion Inserted using aseptic techniques: Yes Preparation: Skin prepped with chg Orientation: Right and distal Location: Forearm Catheter placed: Peripheral IV Catheter size: 20g/1.16in Line Technique: Ultrasound Guidance Number of attempts: 1 IV flushes: Without difficulty and positive blood return noted Patient tolerance: Patient tolerated the procedure well and there were no complications Patient comfort measures used: Position of comfort IV site covered with: Transparent semipermeable dressing Education provided to: Patient Kareem Guidry MD IV THERAPY ORDERABLES Fi nal Result * (ABNORMAL) Hemoglobin and Hematocrit, Blood (11/18/2024 5:54 AM EDT) Pathologist [facility] HGB 6.9(L) 11.2 - 15.7 g/dL LAB HEMATOLOGY METHOD 11/18/2024 6:06 AM EDT [facility] HCT 21.3(L) 34.0 - 45.0 % LAB HEMATOLOGY METHOD 11/18/2024 6:06 AM EDT [facility] Blood Venous blood specimen / Unknown Venipuncture / Unknown 11/18/2024 5:54 AM EDT 11/18/2024 6:04 AM EDT us Vinicius Love MD LAB BLOOD ORDERABLES Final Re sult Performing Organization Address City/[facility] Co de Phone Number [facility] [address] [place] [address] * (ABNORMAL) Magnesium (11/18/2024 4:36 AM EDT) Magnesium, Plasma 1.6(L) 1.9 - 2.4 mg/dL 11/18/2024 5:20 AM EDT [facility] Blood Venous blood specimen / Unknown Venipuncture / Unknown 11/18/2024 4:36 AM EDT 11/18/2024 4:48 AM EDT us Vinicius Love MD LAB BLOOD ORDERABLES Final Re sult Performing Organization Address [facility] Co de Phone Number [facility] [address] [place] [address] * IONIZED CALCIUM, SERUM (11/18/2024 4:36 AM EDT) Ionized Calcium, Serum 4.6 4.6 - 5.3 mg/dL LAB HEMATOLOGY METHOD 11/18/2024 5:29 AM EDT [facility] Blood Venous blood specimen / Unknown Venipuncture / Unknown 11/18/2024 4:36 AM EDT 11/18/2024 4:48 AM EDT us Vinicius Love MD LAB BLOOD ORDERABLES Final Re sult Performing Organization Address [facility] Co de Phone Number [facility] [address] [place] [address] * (ABNORMAL) Comprehensive metabolic panel (11/18/2024 4:36 AM EDT) Glucose, Plasma 91 74 - 99 mg/dL 11/18/2024 5:20 AM EDT [facility] BUN, Plasma 10 7 - 21 mg/dL 11/18/2024 5:20 AM EDT [facility] Creatinine, Plasma 0.90 0.60 - 1.10 mg/dL 11/18/2024 5:20 AM EDT [facility] BUN/Creatinine Ratio 11 11/18/2024 5:20 AM EDT [facility] Sodium, Plasma 140 136 - 145 mmol/L 11/18/2024 5:20 AM EDT [facility] Potassium, Plasma 3.6 3.6 - 4.9 mmol/L 11/18/2024 5:20 AM EDT [facility] Chloride, Plasma 105 97 - 107 mmol/L 11/18/2024 5:20 AM EDT [facility] CO2, Plasma 22 22 - 29 mmol/L 11/18/2024 5:20 AM EDT [facility] Anion Gap 13 6 - 16 mmol/L 11/18/2024 5:20 AM EDT [facility] Total Calcium, Plasma 7.9(L) 8.9 - 10.2 mg/dL 11/18/2024 5:20 AM EDT [facility] Total Protein 5.8(L) 6.3 - 7.9 g/dL 11/18/2024 5:20 AM EDT [facility] Albumin, Plasma 2.6(L) 3.5 - 5.2 g/dL 11/18/2024 5:20 AM EDT [facility] AST, Plasma 23 10 - 35 U/L 11/18/2024 5:20 AM EDT [facility] ALT, Plasma 12 10 - 35 U/L 11/18/2024 5:20 AM EDT [facility] Alkaline Phosphatase, Plasma 263(H) 35 - 104 U/L 11/18/2024 5:20 AM EDT [facility] Total Bilirubin, Plasma 0.5 0.2 - 1.1 mg/dL 11/18/2024 5:20 AM EDT [facility] eGFRcr 80.0 mL/min/1.7 3m*2 11/18/2024 5:20 AM EDT [facility] Comment:Reported eGFRcr in m L/min/1.73m2 is based the CKD-EPI 2020 equation that does not use a race coefficient. Blood Venous blood specimen / Unknown Venipuncture / Unknown 11/18/2024 4:36 AM EDT 11/18/2024 4:48 AM EDT us Vinicius Love MD LAB BLOOD ORDERABLES Final Re sult [facility] [address] [place] [address] * (ABNORMAL) CBC W/O Differential (11/18/2024 4:36 AM EDT) WBC Count 9.43 3.70 - 10.30 10*3/uL LAB HEMATOLOGY METHOD 11/18/2024 4:51 AM EDT [facility] RBC Count 2.39(L) 3.90 - 5.20 10*6/uL LAB HEMATOLOGY METHOD 11/18/2024 4:51 AM EDT [facility] HGB 6.4(LL) 11.2 - 15.7 g/dL LAB HEMATOLOGY METHOD 11/18/2024 4:51 AM EDT [facility] HCT 19.8(L) 34.0 - 45.0 % LAB HEMATOLOGY METHOD 11/18/2024 4:51 AM EDT [facility] Platelet Count 220 155 - 369 10*3/uL LAB HEMATOLOGY METHOD 11/18/2024 4:51 AM EDT [facility] MCV 83 79 - 98 fL LAB HEMATOLOGY METHOD 11/18/2024 4:51 AM EDT [facility] MCH 26.8 26.0 - 32.0 pg LAB HEMATOLOGY METHOD 11/18/2024 4:51 AM EDT [facility] MCHC 32.3 30.7 - 35.5 g/dL LAB HEMATOLOGY METHOD 11/18/2024 4:51 AM EDT [facility] RDW 16.7(H) 11.5 - 14.5 % LAB HEMATOLOGY METHOD 11/18/2024 4:51 AM EDT [facility] MPV 9.3 8.8 - 12.5 fL LAB HEMATOLOGY METHOD 11/18/2024 4:51 AM EDT [facility] nRBC 0.0 <=0.0 per 100 WBCs LAB HEMATOLOGY METHOD 11/18/2024 4:51 AM EDT [facility] Blood Venous blood specimen / Unknown Venipuncture / Unknown 11/18/2024 4:36 AM EDT 11/18/2024 4:42 AM EDT us Vinicius Love MD LAB BLOOD ORDERABLES Final Re sult [facility] [address] [place] [address] * US Abdomen RUQ (11/17/2024 2:00 PM EDT) Anatomical Region Laterality Modality Gallbladder Ultrasound Impressions 11/17/2024 2:59 PM EDT Cholelithiasis with gallbladder wall thickening suggestive of cholecystitis. Redemonstrated large intraparenchymal liver masses. Few punctate nonobstructive renal calculi within the right kidney. No hydronephrosis. CRITICAL RESULT: No. COMMUNICATION: Per this written report. By electronically signing this report, I, the attending physician, attest that I have personally reviewed the images/data for the above examination(s) and agree with the final edited report. Drafted by Ras Gipson MD on 11/17/2024 2:27 PM Final report signed by Orion Garcia MD on 11/17/2024 2:59 PM Narrative 11/17/2024 2:59 PM EDT CLINICAL INDICATION: abd pain TECHNIQUE: Multiplanar grayscale ultrasound of the right upper quadrant of the abdomen. COMPARISON: CT abdomen and pelvis November 09, 2024 FINDINGS: Visualized Pancreas: Partial imaging of the pancreas is unremarkable. Liver: Normal echogenicity of the liver. Identified are 2 large heterogenous the hyperechoic masses within the liver measuring 12.4 x 13.7 x 12.4 cm and 8.0 x 8.9 x 9.1 cm. Gallbladder: Cholelithiasis. Gallbladder wall thickening with the wall measuring 4 mm. No pericholecystic fluid. Bile Ducts: No intra-hepatic biliary ductal dilatation. No extra-hepatic biliary ductal dilatation. Right Kidney: The right kidney measures 12.7 cm in length. Normal cortical echogenicity. A few punctate nonobstructive renal calculi. No hydronephrosis. Fluid Survey: No ascites. Procedure Note Orion Garcia MD - 11/17/2024 CLINICAL INDICATION: abd pain TECHNIQUE: Multiplanar grayscale ultrasound of the right upper quadrant of theabdomen. COMPARISON: CT abdomen and pelvis November 09, 2024 FINDINGS: Visualized Pancreas: Partial imaging of the pancreas is unremarkable. Liver: Normal echogenicity of the liver. Identified are 2 largeheterogenous the hyperechoic masses within the liver measuring 12.4 x 13.7x 12.4 cm and 8.0 x 8.9 x 9.1 cm. Gallbladder: Cholelithiasis. Gallbladder wall thickening with the wallmeasuring 4 mm. No pericholecystic fluid. Bile Ducts: No intra-hepatic biliary ductal dilatation. No extra-hepaticbiliary ductal dilatation. Right Kidney: The right kidney measures 12.7 cm in length. Normal corticalechogenicity. A few punctate nonobstructive renal calculi. Nohydronephrosis. Fluid Survey: No ascites. IMPRESSION: Cholelithiasis with gallbladder wall thickening suggestive ofcholecystitis. Redemonstrated large intraparenchymal liver masses. Few punctate nonobstructive renal calculi within the right kidney. Nohydronephrosis. CRITICAL RESULT: No. COMMUNICATION: Per this written report. By electronically signing this report, I, the attending physician, attestthat I have personally reviewed the images/data for the aboveexamination(s) and agree with the final edited report. Drafted by Ras Gipson MD on 11/17/2024 2:27 PM Final report signed by Orion Garcia MD on 11/17/2024 2:59 PM Kareem Guidry MD IMG US PROCEDURES Final Result * APTT (11/17/2024 1:25 PM EDT) aPTT 26 25 - 35 sec 11/17/2024 1:44 PM EDT [facility] Blood Venous blood specimen / Unknown Venipuncture / Unknown 11/17/2024 1:25 PM EDT 11/17/2024 1:27 PM EDT us Kareem Guidry MD LAB BLOOD ORDERABLES Fin al Result [facility] [address] [place] [address] * (ABNORMAL) PT-INR (11/17/2024 1:25 PM EDT) Prothrombin Time 15.4(H) 12.0 - 14.3 sec 11/17/2024 1:43 PM EDT [facility] INR 1.2(H) 0.9 - 1.1 11/17/2024 1:43 PM EDT [facility] Blood Venous blood specimen / Unknown Venipuncture / Unknown 11/17/2024 1:25 PM EDT 11/17/2024 1:27 PM EDT Narrative [facility] - 11/17/2024 1:43 PM EDT OPTIMAL INR RANGES FOR PATIENT ON ORAL ANTICOAGULANT THERAPY Prevention of venous thromboembolism INR 2.0 to 3.0 In patients with heart disease: Atrial fibrillation INR 2.0 to 3.0 Valvular heart disease INR 2.0 to 3.0 Tissue heart valves INR 2.0 to 3.0 Mechanical prosthetic valves INR 2.5 to 3.5 Prevention of recurrent MO INR 2.5 to 3.5 Kareem Guidry MD LAB BLOOD ORDERABLES Fin al Result [facility] [address] [place] [address] * (ABNORMAL) Lipase (11/17/2024 1:25 PM EDT) Lipase, Plasma 14(L) 19 - 63 U/L 11/17/2024 1:50 PM EDT [facility] Blood Venous blood specimen / Unknown Venipuncture / Unknown 11/17/2024 1:25 PM EDT 11/17/2024 1:27 PM EDT Kareem Guidry MD LAB BLOOD ORDERABLES Fin al Result [facility] [address] [place] [address] * (ABNORMAL) CMP (11/17/2024 1:25 PM EDT) Glucose, Plasma 89 74 - 99 mg/dL 11/17/2024 1:50 PM EDT [facility] BUN, Plasma 10 7 - 21 mg/dL 11/17/2024 1:50 PM EDT [facility] Creatinine, Plasma 0.88 0.60 - 1.10 mg/dL 11/17/2024 1:50 PM EDT [facility] BUN/Creatinine Ratio 11 11/17/2024 1:50 PM EDT [facility] Sodium, Plasma 137 136 - 145 mmol/L 11/17/2024 1:50 PM EDT [facility] Potassium, Plasma 3.6 3.6 - 4.9 mmol/L 11/17/2024 1:50 PM EDT [facility] Chloride, Plasma 102 97 - 107 mmol/L 11/17/2024 1:50 PM EDT [facility] CO2, Plasma 20(L) 22 - 29 mmol/L 11/17/2024 1:50 PM EDT [facility] Anion Gap 15 6 - 16 mmol/L 11/17/2024 1:50 PM EDT [facility] Total Calcium, Plasma 9.0 8.9 - 10.2 mg/dL 11/17/2024 1:50 PM EDT [facility] Total Protein 7.5 6.3 - 7.9 g/dL 11/17/2024 1:50 PM EDT [facility] Albumin, Plasma 3.0(L) 3.5 - 5.2 g/dL 11/17/2024 1:50 PM EDT [facility] AST, Plasma 32 10 - 35 U/L 11/17/2024 1:50 PM EDT [facility] ALT, Plasma 18 10 - 35 U/L 11/17/2024 1:50 PM EDT [facility] Alkaline Phosphatase, Plasma 378(H) 35 - 104 U/L 11/17/2024 1:50 PM EDT [facility] Total Bilirubin, Plasma 0.7 0.2 - 1.1 mg/dL 11/17/2024 1:50 PM EDT [facility] eGFRcr 82.2 mL/min/1.7 3m*2 11/17/2024 1:50 PM EDT [facility] Comment:Reported eGFRcr in m L/min/1.73m2 is based the CKD-EPI 2020 equation that does not use a race coefficient. Blood Venous blood specimen / Unknown Venipuncture / Unknown 11/17/2024 1:25 PM EDT 11/17/2024 1:27 PM EDT us Kareem Guidry MD LAB BLOOD ORDERABLES Fin al Result [facility] [address] [place] [address] * (ABNORMAL) CBC w/diff (11/17/2024 1:25 PM EDT) WBC Count 12.34(H) 3.70 - 10.30 10*3/uL LAB HEMATOLOGY METHOD 11/17/2024 1:30 PM EDT [facility] RBC Count 3.19(L) 3.90 - 5.20 10*6/uL LAB HEMATOLOGY METHOD 11/17/2024 1:30 PM EDT [facility] HGB 8.4(L) 11.2 - 15.7 g/dL LAB HEMATOLOGY METHOD 11/17/2024 1:30 PM EDT [facility] HCT 27.1(L) 34.0 - 45.0 % LAB HEMATOLOGY METHOD 11/17/2024 1:30 PM EDT [facility] Platelet Count 308 155 - 369 10*3/uL LAB HEMATOLOGY METHOD 11/17/2024 1:30 PM EDT [facility] MCV 85 79 - 98 fL LAB HEMATOLOGY METHOD 11/17/2024 1:30 PM EDT [facility] MCH 26.3 26.0 - 32.0 pg LAB HEMATOLOGY METHOD 11/17/2024 1:30 PM EDT [facility] MCHC 31.0 30.7 - 35.5 g/dL LAB HEMATOLOGY METHOD 11/17/2024 1:30 PM EDT [facility] RDW 16.7(H) 11.5 - 14.5 % LAB HEMATOLOGY METHOD 11/17/2024 1:30 PM EDT [facility] MPV 9.6 8.8 - 12.5 fL LAB HEMATOLOGY METHOD 11/17/2024 1:30 PM EDT [facility] nRBC 0.0 <=0.0 per 100 WBCs LAB HEMATOLOGY METHOD 11/17/2024 1:30 PM EDT [facility] Differential Type Automated LAB HEMATOLOGY METHOD 11/17/2024 1:30 PM EDT [facility] Neutrophils % 80 % LAB HEMATOLOGY METHOD 11/17/2024 1:30 PM EDT [facility] Lymphocytes % 11 % LAB HEMATOLOGY METHOD 11/17/2024 1:30 PM EDT [facility] Monocytes % 5 % LAB HEMATOLOGY METHOD 11/17/2024 1:30 PM EDT [facility] Eosinophils % 1 % LAB HEMATOLOGY METHOD 11/17/2024 1:30 PM EDT [facility] Basophils % 1 % LAB HEMATOLOGY METHOD 11/17/2024 1:30 PM EDT [facility] Immature Granulocytes % 2 % LAB HEMATOLOGY METHOD 11/17/2024 1:30 PM EDT [facility] Neutrophils Absolute 10.04(H) 1.60 - 6.10 10*3/uL LAB HEMATOLOGY METHOD 11/17/2024 1:30 PM EDT [facility] Lymphocytes Absolute 1.31 1.20 - 3.90 10*3/uL LAB HEMATOLOGY METHOD 11/17/2024 1:30 PM EDT [facility] Monocytes Absolute 0.62 0.30 - 0.90 10*3/uL LAB HEMATOLOGY METHOD 11/17/2024 1:30 PM EDT [facility] Eosinophils Absolute 0.08 0.00 - 0.50 10*3/uL LAB HEMATOLOGY METHOD 11/17/2024 1:30 PM EDT [facility] Basophils Absolute 0.06 0.00 - 0.10 10*3/uL LAB HEMATOLOGY METHOD 11/17/2024 1:30 PM EDT [facility] Immature Granulocytes Absolute 0.23(H) 0.00 - 0.06 10*3/uL LAB HEMATOLOGY METHOD 11/17/2024 1:30 PM EDT [facility] Blood Venous blood specimen / Unknown Venipuncture / Unknown 11/17/2024 1:25 PM EDT 11/17/2024 1:27 PM EDT [facility] - 11/17/2024 1:30 PM EDT Therapeutic decision making should be based on absolute values, rather than percentages. 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 H/O cholelithiasis documented in this encounter Admitting Diagnoses Diagnosis RUQ abdominal pain Abdominal pain, right upper quadrant documented in this encounter Administered Medications Inactive Administered Medications - up to 3 most recent administrations Medication Order MAR Action Action Date Dose Rate Site acetaminophen (Tylenol) tablet 1,000 mg 1,000 mg, Oral, Every 6 hours scheduled, First dose (after last modification) on Sun11/18/24 at 0000, Until Discontinued, Routine Given 11/18/2024 6:30 PM EDT 1,000 mg Given 11/18/2024 12:29 PM EDT 1,000 mg Given 11/18/2024 5:45 AM EDT 1,000 mg acetaminophen (Tylenol) tablet 1,000 mg 1,000 mg, Oral, Every 8 hours scheduled, First dose (after last modification) on Sun11/19/24 at 0600, Until Discontinued, Routine Given 11/19/2024 5:04 AM EDT 1,000 mg acetaminophen (Tylenol) tablet 500 mg 500 mg, Oral, Every 6 hours scheduled, First dose on Sun11/17/24 at 1800, Until Discontinued, Routine Given 11/17/2024 6:20 PM EDT 500 mg acetaminophen (Tylenol) tablet 650 mg 650 mg, Oral, Once, 1 dose, On Laura 11/20/24 at 1215, Routine Given 11/20/2024 11:26 AM EDT 650 mg calcium carbonate (Tums) chewable tablet 1,000 mg 1,000 mg, Oral, Daily, First dose on Sun11/21/24 at 0900, Until Discontinued, Routine Given 11/21/2024 8:48 AM EDT 1,000 mg dexamethasone (Decadron) injection Intravenous, As needed, Starting on Sun11/18/24 at 1505, Until Sun11/18/24 at 1505, Routine, Intraprocedure Given 11/18/2024 3:05 PM EDT 8 mg diphenhydrAMINE (Benadryl) injection As needed, Starting on Sun11/18/24 at 1510, Until Sun11/18/24 at 1510, Routine, Intraprocedure Given 11/18/2024 3:10 PM EDT 50 mg enoxaparin (Lovenox) syringe 40 mg 40 mg, Subcutaneous, Daily, First dose on Sun11/19/24 at 1845, Until Discontinued, Routine Given 11/21/2024 8:49 AM EDT 40 mg Left Lower Abdomen Given 11/20/2024 8:42 AM EDT 40 mg Le ft Lower Abdomen Given 11/19/2024 6:32 PM EDT 40 mg Le ft Lower Abdomen fentaNYL (Sublimaze) injection Intravenous, As needed, Starting on Sun11/18/24 at 1430, Until Sun11/18/24 at 1532, Routine, Intraprocedure Given 11/18/2024 3:32 PM EDT 25 mcg Given 11/18/2024 3:27 PM EDT 50 mcg Given 11/18/2024 3:18 PM EDT 25 mcg HYDROmorphone (Dilaudid) injection 0.5 mg 0.5 mg, Intravenous, Every 2 hour PRN, Starting on Sun11/18/24 at 1610, Until Sun11/18/24 at 2334, Routine, mild - moderate pain Given 11/18/2024 6:3 4 PM EDT 0.5 mg HYDROmorphone (Dilaudid) injection 1 mg 1 mg, Intravenous, Every 2 hour PRN, Starting on Sun11/18/24 at 1610, Until Sun11/18/24 at 2334, Routine, severe pain Given 11/18/2024 8:31 PM EDT 1 mg Given 11/18/2024 4:19 PM EDT 1 mg HYDROmorphone (Dilaudid) injection 1 mg 1 mg, Intravenous, Once, 1 dose, On Sun11/19/24 at 0030, Routine Given 11/18/2024 11:45 PM EDT 1 mg ibuprofen tablet 600 mg 600 mg, Oral, Every 6 hours scheduled, First dose on Laura 11/20/24 at 0000, Until Discontinued, Routine Given 11/21/2024 5:33 AM EDT 600 mg Given 11/20/2024 11:41 PM EDT 600 mg Given 11/20/2024 6:46 PM EDT 600 mg iohexol (OMNIPaque) 300 MG/ML injection 100 mL 100 mL, Other, Once in imaging, 1 dose, Starting on Sun11/18/24 at 1526, Until Sun11/18/24 at 1526, Routine, Imaging Protocol Orders Given 11/18/2024 3:26 PM EDT 180 mL ketorolac (Toradol) injection 15 mg 15 mg, Intravenous, Once, 1 dose, On Sun11/19/24 at 0530, Routine Given 11/19/2024 4:46 AM EDT 15 mg lactated Ringer's infusion 1,000 mL 1,000 mL, Intravenous, Once, 1 dose, On Sun11/17/24 at 1310, STAT New Bag 11/17/2024 2:06 PM EDT 1,000 mL lactated Ringer's infusion 75 mL/hr, Intravenous, Continuous, Starting on Sun11/17/24 at 1735, Until Sun11/21/24 at 1244, Routine New Bag 11/18/2024 8:31 PM EDT 75 mL/ hr 75 mL/hr Rate/Dose Verify 11/18/2024 12:00 AM EDT 75 mL/hr 75 mL/ hr New Bag 11/17/2024 6:20 PM EDT 75 mL/hr 75 mL/hr lidocaine (Xylocaine) 1 % injection Intradermal, As needed, Starting on Sun11/18/24 at 1442, Until Sun11/18/24 at 1442, Routine, Intraprocedure Given 11/18/2024 2:42 PM EDT 10 mL magnesium oxide (Mag-Ox) tablet 400 mg 400 mg, Oral, Once, 1 dose, On Laura 11/20/24 at 0545, Routine Given 11/20/2024 5:18 AM EDT 400 mg magnesium oxide (Mag-Ox) tablet 400 mg 400 mg, Oral, Every 4 hours, 2 doses, First dose on Sun11/21/24 at 0600, Last dose on Sun11/21/24 at 1000, Routine Given 11/21/2024 8:49 AM EDT 400 mg Given 11/21/2024 5:33 AM EDT 400 mg magnesium sulfate IVPB 2 g 2 g, Intravenous, Once, 1 dose, On Sun11/18/24 at 0525, Routine New Bag 11/18/2024 5:45 AM EDT 2 g 25 mL/hr methocarbamol (Robaxin) tablet 500 mg 500 mg, Oral, 4 times daily, First dose on Sun11/17/24 at 1800, Until Discontinued, Routine Given 11/21/2024 8:48 AM EDT 500 mg Given 11/20/2024 8:22 PM EDT 500 mg Given 11/20/2024 6:46 PM EDT 500 mg midazolam (Versed) injection Intravenous, As needed, Starting on Sun11/18/24 at 1430, Until Sun11/18/24 at 1517, Routine, Intraprocedure Given 11/18/2024 3:17 PM EDT 0.5 mg Given 11/18/2024 2:57 PM EDT 1 mg Given 11/18/2024 2:50 PM EDT 1 mg morphine PF 4 mg 4 mg, Intravenous, Once, 1 dose, On Sun11/17/24 at 1430, STAT Given 11/17/2024 3:22 PM EDT 4 mg ondansetron (Zofran) injection 4 mg 4 mg, Intravenous, Every 6 hours PRN, Starting on Sun11/17/24 at 1729, Until Sun11/21/24 at 1244, Routine, nausea, vomiting Given 11/19/2024 5:11 PM EDT 4 mg Given 11/18/2024 4:19 PM EDT 4 mg ondansetron (Zofran) injection 8 mg 8 mg, Intravenous, Once, 1 dose, On Sun11/17/24 at 1310, STAT Given 11/17/2024 2:05 PM EDT 8 mg ondansetron (Zofran) injection Intravenous, As needed, Starting on Sun11/18/24 at 1505, Until Sun11/18/24 at 1505, Routine, Intraprocedure Given 11/18/2024 3:05 PM EDT 8 mg ondansetron ODT (Zofran-ODT) disintegrating tablet 4 mg 4 mg, Oral, Every 6 hours PRN, Starting on Sun11/17/24 at 1729, Until Sun11/21/24 at 1244, Routine, nausea, vomiting oxyCODONE (Roxicodone) immediate release tablet 10 mg 10 mg, Oral, Every 4 hours PRN, Starting on Sun11/17/24 at 2333, Until Sun11/18/24 at 1559, Routine, severe pain Given 11/18/2024 9:50 AM EDT 10 mg oxyCODONE (Roxicodone) immediate release tablet 10 mg 10 mg, Oral, Every 4 hours PRN, Starting on Sun11/19/24 at 2026, Until Sun11/21/24 at 1244, Routine, severe pain Given 11/20/2024 11:26 AM EDT 10 mg oxyCODONE (Roxicodone) immediate release tablet 5 mg 5 mg, Oral, Every 4 hours PRN, Starting on Sun11/17/24 at 2333, Until Sun11/18/24 at 1559, Routine, moderate pain Given 11/17/2024 11:39 PM EDT 5 mg oxyCODONE (Roxicodone) immediate release tablet 5 mg 5 mg, Oral, Every 6 hours PRN, Starting on Sun11/19/24 at 1124, Until Sun11/19/24 at 2026, Routine, moderate pain Given 11/19/2024 5:16 PM EDT 5 mg oxyCODONE (Roxicodone) immediate release tablet 5 mg 5 mg, Oral, Every 4 hours PRN, Starting on Sun11/19/24 at 2026, Until Sun11/21/24 at 1244, Routine, moderate pain Given 11/19/2024 8:31 PM EDT 5 mg pantoprazole (Protonix) EC tablet 40 mg 40 mg, Oral, Daily, First dose on Sun11/17/24 at 1740, Until Discontinued, Routine Given 11/18/2024 9:50 AM EDT 40 mg Given 11/17/2024 6:20 PM EDT 40 mg pantoprazole (Protonix) EC tablet 40 mg 40 mg, Oral, Daily before breakfast, First dose (after last modification) on Sun11/19/24 at 0730, Until Discontinued, Routine Given 11/21/2024 8:48 AM EDT 40 mg Given 11/20/2024 8:12 AM EDT 40 mg Given 11/19/2024 8:47 AM EDT 40 mg piperacillin-tazobactam (Zosyn) 4.5 g in sodium chloride 0.9% 100 mL IVPB (vial adapter required) Continuous PRN, Starting on Sun11/18/24 at 1420, Until Sun11/18/24 at 1420, Routine, Intraprocedure New Bag 11/18/2024 2:20 PM EDT 4.5 g potassium chloride CR (Klor-Con) ER tablet 20 mEq 20 mEq, Oral, Once, 1 dose, On Sun11/21/24 at 0715, Routine Given 11/21/2024 8:48 AM EDT 20 mEq potassium chloride CR (Klor-Con) ER tablet 40 mEq 40 mEq, Oral, Once, 1 dose, On Sun11/21/24 at 0600, Routine Given 11/21/2024 5:33 AM EDT 40 mEq sincalide (Kinevac) injection 2.3 mcg 2.3 mcg (0.02 mcg/kg 115 kg), Intravenous, Once, 1 dose, On Sun11/19/24 at 1215, Routine, Imaging NM Protocol Orders Given 11/19/2024 11:45 AM EDT 2.3 mcg Right Forearm sodium chloride 0.9 % flush 10 mL 10 mL, Intravenous, Every 12 hours, First dose on Sun11/17/24 at 1735, Until Discontinued, Routine Given 11/21/2024 4:36 AM EDT 10 mL Given 11/20/2024 4:55 PM EDT 10 mL Given 11/20/2024 4:35 AM EDT 10 mL sodium chloride 0.9 % flush 10 mL 10 mL, Intravenous, As needed, Starting on Sun11/17/24 at 1724, Until Sun11/21/24 at 1244, Routine, line care technetium [id number] mebrofenin (Choletec) radio-isotope injection 4 millicurie 4 millicurie, Intravenous, Once, 1 dose, On Sun11/19/24 at 1430, Routine, Imaging NM Protocol Orders Given 11/19/2024 1:37 PM EDT 4 millicuries Right Forearm documented in this encounter Active and Recently Administered Medications Times are shown in EDT. Scheduled Medication Order 11/19/2024 11/20/2024 11/21/2024 acetaminophen (Tylenol) tablet 1,000 mg (CANCELED) 1,000 mg, Oral, Every 8 hours scheduled, First dose (after last modification) on Sun11/19/24 at 0600, Until Discontinued, Routine 0504 (Given - Provider: Kareem Angelo RN) acetaminophen (Tylenol) tablet 650 mg (COMPLETED) 650 mg, Oral, Once, 1 dose, On Sun11/20/24 at 1215, Routine 1126 (Given - Provider: Ro Barber, INOCENCIA) calcium carbonate (Tums) chewable tablet 1,000 mg 1,000 mg, Oral, Daily, First dose on Sun11/21/24 at 0900, Until Discontinued, Routine 0848 (Given - Provider: Ailyn Armenta, INOCENCIA) enoxaparin (Lovenox) syringe 40 mg 40 mg, Subcutaneous, Daily, First dose on Sun11/19/24 at 1845, Until Discontinued, Routine 1832 (Given - Provider: Socrates Lew RN) 0842 (Given - Provider: Ro Barber, INOCENCIA) 0849 (Given - Provider: Ailyn Armenta RN) ibuprofen tablet 600 mg 600 mg, Oral, Every 6 hours scheduled, First dose on Sun11/20/24 at 0000, Until Discontinued, Routine 2340 (Given - Provider: Genny Ellis RN) 0518 (Given - Provider: Genny Ellis, INOCENCIA)1126 (Given - Provider: Ro Barber RN)1846 (Given - Provider: Ro Barber, RN)2341 (Given - Provider: Genny Ellis, INOCENCIA) 0533 (Given - Provider: Genny Ellis, RN) ketorolac (Toradol) injection 15 mg (COMPLETED) 15 mg, Intravenous, Once, 1 dose, On Sun11/19/24 at 0530, Routine 0446 (Given - Provider: Kareem Angelo RN) magnesium oxide (Mag-Ox) tablet 400 mg (COMPLETED) 400 mg, Oral, Once, 1 dose, On Sun11/20/24 at 0545, Routine 0518 (Given - Provider: Genny Ellis RN) magnesium oxide (Mag-Ox) tablet 400 mg (COMPLETED) 400 mg, Oral, Every 4 hours, 2 doses, First dose on Sun11/21/24 at 0600, Last dose on Sun11/21/24 at 1000, Routine 0533 (Given - Provider: Genny Ellis RN)0849 (Given - Provider: Ailyn Armenta RN) methocarbamol (Robaxin) tablet 500 mg 500 mg, Oral, 4 times daily, First dose on Sun11/17/24 at 1800, Until Discontinued, Routine 0847 (Not Given - Provider: Socrates Lew RN - Reason: See Provider Order)0848 (Given - Provider: Socrates Lew RN)1620 (Not Given - Provider: Socrates Lew RN - Reason: Patient in procedure)1717 (Given - Provider: Socrates Lew RN)2032 (Given - Provider: Genny Ellis RN) 0812 (Given - Provider: Ro Barber RN)1530 (Given - Provider: Ro Barber RN)1846 (Given - Provider: Ro Barber RN)2022 (Given - Provider: Genny Ellis RN) 0848 (Given - Provider: Ailyn Armenta RN) pantoprazole (Protonix) EC tablet 40 mg 40 mg, Oral, Daily before breakfast, First dose (after last modification) on Sun11/19/24 at 0730, Until Discontinued, Routine 0847 (Given - Provider: Socrates Lew RN) 0812 (Given - Provider: Ro Barber RN) 0848 (Given - Provider: Ailyn Armenta RN) potassium chloride CR (Klor-Con) ER tablet 20 mEq (COMPLETED)(Linked Group 1) 20 mEq, Oral, Once, 1 dose, On Sun11/21/24 at 0715, Routine 0848 (Given - Provider: Ailyn Armenta RN) potassium chloride CR (Klor-Con) ER tablet 40 mEq (COMPLETED)(Linked Group 1) 40 mEq, Oral, Once, 1 dose, On Sun11/21/24 at 0600, Routine 0533 (Given - Provider: Genny Ellis RN) sincalide (Kinevac) injection 2.3 mcg (COMPLETED) 2.3 mcg (0.02 mcg/kg 115 kg), Intravenous, Once, 1 dose, On Sun11/19/24 at 1215, Routine, Imaging NM Protocol Orders 1145 (Given - Provider: Alice Bravo) sodium chloride 0.9 % flush 10 mL(Linked Group 2) 10 mL, Intravenous, Every 12 hours, First dose on Sun11/17/24 at 1735, Until Discontinued, Routine 0535 (Canceled Entry - Provider: Kareem Angelo RN)1717 (Given - Provider: Socrates Lew, INOCENCIA) 0435 (Given - Provider: Genny Ellis, INOCENCIA)1655 (Given - Provider: Ro Barber, INOCENCIA) 0436 (Given - Provider: Genny Ellis, INOCENCIA)1735 (Canceled Entry - Provider: Ailyn Armenta RN) technetium Tc-99m mebrofenin (Choletec) radio-isotope injection 4 millicurie (COMPLETED) 4 millicurie, Intravenous, Once, 1 dose, On Sun11/19/24 at 1430, Routine, Imaging NM Protocol Orders 1337 (Given - Provider: Alice Bravo) Continuous Medication Order 11/19/2024 11/20/2024 11/21/2024 lactated Ringer's infusion 75 mL/hr, Intravenous, Continuous, Starting on Sun11/17/24 at 1735, Until Sun11/21/24 at 1244, Routine PRN Medication Order 11/19/2024 11/20/2024 11/21/2024 ondansetron (Zofran) injection 4 mg 4 mg, Intravenous, Every 6 hours PRN, Starting on Sun11/17/24 at 1729, Until Sun11/21/24 at 1244, Routine, nausea, vomiting 1711 (Given - Provider: Socrates Lew, INOCENCIA) ondansetron ODT (Zofran-ODT) disintegrating tablet 4 mg 4 mg, Oral, Every 6 hours PRN, Starting on Sun11/17/24 at 1729, Until Sun11/21/24 at 1244, Routine, nausea, vomiting oxyCODONE (Roxicodone) immediate release tablet 10 mg 10 mg, Oral, Every 4 hours PRN, Starting on Sun11/19/24 at 2027, Until Sun11/21/24 at 1244, Routine, severe pain 2030 (See Alternative - Provider: Genny Ellis, RN) 1126 (Given - Provider: Ro Barber, RN) oxyCODONE (Roxicodone) immediate release tablet 5 mg (CANCELED)(Linked Group 3) 5 mg, Oral, Every 6 hours PRN, Starting on Sun11/19/24 at 1124, Until Sun11/19/24 at 2026, Routine, moderate pain 1716 (Given - Provider: Socrates Lew RN) oxyCODONE (Roxicodone) immediate release tablet 5 mg 5 mg, Oral, Every 4 hours PRN, Starting on Sun11/19/24 at 2026, Until Sun11/21/24 at 1244, Routine, moderate pain 2030 (Given - Provider: Genny Ellis RN) 1126 (See Alternative - Provider: Ro Barber, RN) sodium chloride 0.9 % flush 10 mL(Linked Group 2) 10 mL, Intravenous, As needed, Starting on Sun11/17/24 at 1724, Until Sun11/21/24 at 1244, Routine, line care Linked Groups Order Group 1: potassium chloride CR (Klor-Con) ER tablet 40 mEq (COMPLETED)Jump to med 40 mEq, Oral, Once, 1 dose, On Sun11/21/24 at 0600, Routine Followed by potassium chloride CR (Klor-Con) ER tablet 20 mEq (COMPLETED)Jump to med 20 mEq, Oral, Once, 1 dose, On Sun11/21/24 at 0715, Routine Group 2: Saline lock IV (CANCELED) Once, On Sun11/17/24 at 1725, For 1 occurrence And sodium chloride 0.9 % flush 10 mLJump to med 10 mL, Intravenous, Every 12 hours, First dose on Sun11/17/24 at 1735, Until Discontinued, Routine And sodium chloride 0.9 % flush 10 mLJump to med 10 mL, Intravenous, As needed, Starting on Sun11/17/24 at 1724, Until Sun11/21/24 at 1244, Routine, line care Group 3: oxyCODONE (Roxicodone) immediate release tablet 5 mg (CANCELED)Jump to med 5 mg, Oral, Every 6 hours PRN, Starting on Sun11/19/24 at 1124, Until Sun11/19/24 at 2026, Routine, moderate pain Or oxyCODONE (Roxicodone) immediate release tablet 10 mg (CANCELED) 10 mg, Oral, Every 6 hours PRN, Starting on Sun11/19/24 at 1124, Until Sun11/19/24 at 2026, Routine, severe pain documented in this encounter Additional Health Concerns Assessment Noted Time A Body Mass Index follow-up plan has been documented for the patient 11/21/2024 8:58 AM EDT documented as of this encounter 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
--- OUTSIDE RECORDS SUMMARY | 2024-12-04 09:00 | XMS_ITS | Encounter Summary ---
Author Organization [facility] Address [address] [place] [address] Care Team Providers Care Medical Staffing Coordinator Name Role Phone Pcp, No Primary Care Provider Unavailabl e Reason for Referral * Imaging (Routine) - Pending Review Specialty Diagnoses / Procedures Referred By Contac t Referred To Contact Radiology Diagnoses Endometrial cancer Procedures CT Abdomen Pelvis w IV Contrast Karol Jane MD [address] [address] Phone: tel: fax: Referral ID Status Reason Start Date Expiration Date V isits Requested Visits Authorized [id number] Pending Review 12/04/2024 06/05/2026 1 1 * Imaging (Routine) - Pending Review Specialty Diagnoses / Procedures Referred By Contac t Referred To Contact Radiology Diagnoses Endometrial cancer Procedures CT Chest w IV Contrast Karol Jane MD [address] [address] Phone: tel: fax: Referral ID Status Reason Start Date Expiration Date V isits Requested Visits Authorized [id number] Pending Review 12/04/2024 06/05/2026 1 1 Reason for Visit * Reason Comments Consult Encounter Details Date Type Department Care Team (Late st Contact Info) Description 12/04/2024 10:00 AM EDT Office Visit [facility] [address] [place] [address] Karol Jane MD [address] [place] [address] Endometrial cancer (CMS/HCC) (Primary Dx) Social History Tobacco Use Types Packs/Day Years Used Date Smoking Tobacco: Every Day Smokeless Tobacco: Never Alcohol Use Standard Drinks/Week Comments Never 0 (1 standard drink = 0.6 oz pur e alcohol) PHQ-2 Answer Date Recorded Patient Health Questionnaire-2 Score 0 12/04/2024 Humiliation, Afraid, Rape, and Kick questionnair e [...] money to buy more. Never true 11/19/19 Within the past 12 months, t he food you bought just didn't last and you didn't have money to get more. Never true 11/18/2024 PRAPARE - Transportation Answer Date Re corded In the past 12 months, has l ack of transportation kept you from medical appointments or from getting medications? No 09/0 11/2024 In the past 12 months, has [...] time in the past 12 m [facility], were you homeless or living in a intermediate (including now)? 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) to steady your nerves or to get [...] Sign Reading Time Taken Comments Blood Pressure 131/78 12/04/2024 10:01 AM EDT Pulse 78 12/04/2024 10:01 AM EDT Temperature 36.6 C (97.9 F) 12/04/2024 10:01 AM EDT Respiratory Rate 16 12/04/2024 10:01 AM EDT Oxygen Saturation 97% 12/04/2024 10:01 AM EDT Inhaled Oxygen Concentration - - Weight 108 kg (237 lb 14 oz) 12/04/2024 10:01 AM EDT Height 175.3 cm (5' 9 ) 12/04/2024 10:01 AM EDT Body Mass Index 35.13 12/04/2024 10:01 AM EDT documented in this encounter Functional Status * Over the past 2 weeks, how often have you been bothered by any of the following problems? Question Answer Date of Assessment Author Little interest or pleasure in doing things Not at all 12/04/2024 10:03 AM EDT Mayte Cruz Feeling down, depressed, or hopeless Not at all 12/04/2024 10:03 AM EDT Mayte Cruz Patient Health Questionnaire -2 Score 0 12/04/2024 10:03 AM EDT Mayte rCuz * Question Answer Date of Assessment Author Thoughts that you would be b cristy off or hurting yourself in some way Not at all 12/04/2024 10:03 AM EDT Mayte Cruz documented as of this encounter Miscellaneous Notes * Progress Notes - Karol Jane MD - 12/04/2024 10:00 AM EDT Images from the original note were not included. Patient ID: Narda Aparicio is a 44 y.o. female. Referring Physician: No referring provider defined for this encounter. Primary Care Provider: Pcp, No Oncology History: Cancer Staging No matching staging information was found for the patient. Alignment Technician Cancer Treatment History: 1. Presented to ED with abdominal pain - outside CT scan showed pelvic mass with lesions in liver concerning for metastasis. 2. Surgery on 09/01/17 - DIONNA/BSO/liver biopsy. Finding showed large, 10cm pedunculated uterine mass,10cm mass located in the posterior cul-de-sac, separate from uterus, palpable liver mass on right anterior liver dome. This mass was biopsied. Normal appearing bowel and omentum. 3. Post surgery CT scan at showed - Extensive post surgical changes in the pelvis from a recent hysterectomy and bilateral oophorectomy. Subdiaphragmatic/capsular based deposits on the liver and spleen as described above. Several subcentimeter retroperitoneal nodes, conspicuous in number. Attention on follow-up imaging is recommended. 4. Final path reviewed at [facility], Dr. Garcia - As you know from our conversation and my messages I consider this a high-grade endometrioid adenocarcinoma with foci of undifferentiated carcinoma. There are glands consistent with an endometrioid nature on B4, abortive squamous differentiation (in my opinion) and an association at the periphery with some benign mullerian-type glands suggestive of a possible origin in endosalpingiosis or endometriosis. All sorts of mulleriantumors arise outside the female genital organs proper. The morphology is most unusual but the diversity of what one can see with endometrioid carcinoma is simply stunning. In light of this consultation, tumor has been reclassified as above. There is no formal staging system for gynecologic tumors arising outside of the genital tract. However, as tumor is noted within a liver biopsy, this can be considered advanced-stage disease. 5. [facility] report negative for alterations. 6. Cycle #6 carbo/taxol on 02/21/18. CT scan on 03/14/18 showed no convincing evidence of disease in the chest, redemonstration of capsular subdiaphragmatic deposits along the dome of the liver and at the posterior aspect of the spleen with interval decrease in size of the perisplenic lesion. Interval development of mild right pelvocaliectasis. No obstructing lesion is visualized. 7. CT scan on 06/13/18 was mostly stable including 2 masses in the upper liver, a mass in the posterior upper right hepatic lobe, a mass along the medial aspect of the spleen; there is a mass in the right pelvis cephalad and anterior to the vaginal cuff measuring 2.3 x 1.5 cm, which is more prominent, but could represent dilated vein/post surgical tissue, versus recurrence. 8. CT scan 01/16/19 showed decreasing size of liver lesions. History of Present Illness: Mrs. 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 She is seen today after recent discharge from the hospital following embolization of liver mass with liver mass biopsy with IR following imaging showing enlarging splenic and liver lesions from priorscans concerning for recurrence vs. progressive disease. Liver biopsy performed on 11/18 showed malign ant carcinoma. Today, she is doing well. Not having any abdominal pain, nausea, or vomiting that she was having before she presented to the ED. She denies any vaginal pain or bleeding. - Has an appointment scheduled with Dr. Veloz in [place] on 12/09. Would like to have her treatmentdone close to home if possible. - SHx: DIONNA/BSO in 2018 - Meds: Pantoprazole, zofran, acetaminophen - Allergies: none - Fhx: rectal cancer in mother, HPV-related throat cancer in uncle - Prior to hospitalization, had not had a pelvic exam since hysterectomy History of Present Illness I have reviewed the patient's past medical history and current problem list with her, which is detailed below. Additionally, she denies history of [place], DVT, stroke. Employer: No address on file. Travel History Relevant International Travel History: Travel Screening Question Response Have you been in contact with someone who was sick? No / Unsure Do you have any of the following new or worsening symptoms? None of these Have you traveled internationally or domestically in the last month? No Travel History Travel since 11/03/24 No documented travel since 11/03/24 Relevant Domestic Travel History: N/A Immunizations Reviewed VACCINE / DOSE Flu Tetanus Pneumovax Shingles Review of Systems: ROS: 14 pt ROS performed with pertinent positives and negatives as noted in HPI. ROS otherwise negative Medical/Family/Social History: Past Medical History[1] Surgical History[2] Family History[3] She reports that she has been smoking. She has never used smokeless tobacco. She reports that she does not drink alcohol. No history on file for drug use. Medications/Allergies: Current Medications[4] Allergies[5] Physical Exam: BSA: 2.29 meters squared Visit Vitals BP 131/78 (BP Location: Right arm, Patient Position: Sitting, BP Cuff Size: Large adult) Pulse 78 Temp 36.6 ??C (97.9 ??F) (Temporal) Resp 16 Ht 1.753 m (5' 9 ) Wt 108 kg (237 lb 14 oz) SpO2 97% BMI 35.13 kg/m?? OB Status Hysterectomy Smoking Status Every Day BSA 2.29 m?? Physical Exam Constitutional: Appearance: Normal appearance. HENT: Head: Normocephalic and atraumatic. Eyes: Pupils: Pupils are equal, round, and reactive to light. Cardiovascular: Rate and Rhythm: Normal rate and regular rhythm. Pulmonary: Effort: Pulmonary effort is normal. Breath sounds: Normal breath sounds. Abdominal: General: Abdomen is flat. Palpations: Abdomen is soft. Neurological: General: No focal deficit present. Mental Status: She is alert and oriented to person, place, and time. Psychiatric: Behavior: Behavior normal. Thought Content: Thought content normal. Results: Labs: WBC Count (10*3/uL) Date/Time Value 11/21/2024318 12.55 (H) HGB (g/dL) Date/Time Value 11/21/2024318 7.3 (L) HCT (%) Date/Time Value 11/21/2024318 22.1 (L) Platelet Count (10*3/uL) Date/Time Value 11/21/2024318 236 LDH, Plasma (U/L) Date/Time Value 08/31/2017 1104 256 (H) Creatinine, Plasma (mg/dL) Date/Time Value 11/21/2024318 0.77 AST, Plasma (U/L) Date/Time Value 11/21/2024318 188 (H) CA 125 (U/mL) Date/Time Value 08/31/2017 1104 30 CEA, Serum (ng/mL) Date/Time Value 08/31/2017 1104 3.8 AFP-Tumor Marker (ng/mL) Date/Time Value 08/31/2017 1104 2.7 Pathology: Final Diagnosis (no units) Date/Time Value 11/18/2024 1557 LIVER, BIOPSY: - POSITIVE FOR METASTATIC CARCINOMA (SEE COMMENT). Comment (no units) Date/Time Value 11/18/2024 1557 The patient's prior history of high-grade endometrioid [...] the patient's prior high grade endometrioid adenocarcinoma. Radiology: === 11/08/24 === CT CHEST WO IV CONTRAST - Narrative - CLINICAL INDICATION: Metastatic disease evaluation TECHNIQUE: Multiple [...] heterogenous hepatic lesions measuring up to 15.6 cmin the hepatic dome (series 2, image 76). Musculoskeletal: No suspicious lytic or sclerotic lesion. - Impression - New right basilar consolidation and small to [...] Jan Alfonso MD on 11/11/2024 10:17 AM Assessment and Plan: Performance Status: 0 Metastatic mullerian/pelvic malignancy (involving liver), high grade endometrioid cell type -CT scan on 06/13/18 was mostly stable including 2 masses in the upper liver, a mass in the posteriorupper right hepatic lobe, a mass along the medial aspect of the spleen; there is a mass in the right pelvis cephalad and anterior to the vaginal cuff measuring 2.3 x 1.5 cm, which is more prominent, but could represent dilated vein/post surgical tissue, versus recurrence. - recent discharge from the hospital following embolization of liver mass with liver mass biopsy with IR following imaging showing enlarging splenic and liver lesions from prior scans concerning for recurrence vs. progressive disease. Liver biopsy performed on 11/18 showed malignant carcinoma. - I reviewed findings with Mrs. Aparicio and her mother and recommend systemic chemotherapy with carbopatlin/paclitaxel. Could consider additional of bevacizumab. - I discussed treatment plan with Dr. Veloz and he is agreeable. Will likely hold off on jeramie for nowgiven concern for recent liver bleed. - Has an appointment scheduled with Dr. Veloz in [place] on 12/09. He will initiate therapy. - I will see her back in [address] chest abdomen and pelvis prior. Also discussed that if she is doing well can cancel appt and reschedule according to treatment schedule. Surgical menopause -Continue Effexor. Parotid mass -Resected and benign. Team based care includes nurse intake, review of prior documentation, review of images and imaging report, history, physical exam, discussion of results, discussion of plan of care, appointment scheduling, lab orders, phlebotomy, and documentation. Encounter time 60 min [facility] [address] [facility] [address] [facility] [address] Dept Loc: [phone] [1] Past Medical History: Diagnosis Date Disease of salivary gland, unspecified Parotid mass Endometrial cancer (CMS/HCC) [2] Past Surgical History: Procedure Laterality Date HYSTERECTOMY N/A Hysterectomy from [facility] TUBAL LIGATION N/A Tubal ligation from [facility] [3] Family History Problem Relation Name Age of Onset Bone cancer Paternal Grandfather Family history of bone cancer Hypertension Father Family history of hypertension Breast cancer Paternal Grandmother FH: breast cancer Breast cancer Maternal Grandmother FH: breast cancer Throat cancer Other FH: throat cancer Throat cancer Other FH: throat cancer [4] Current Outpatient Medications: acetaminophen (Tylenol) 500 MG tablet, Take 1 tablet by mouth every 6 hours., Disp: 100 tablet, Rfl: 1 methocarbamol (Robaxin) 500 MG tablet, Take 1 tablet by mouth 4 times a day., Disp: 120 tablet, Rfl: 1 ondansetron ODT (Zofran-ODT) 4 MG disintegrating tablet, Dissolve 1 tablet on the tongue every 6 hours as needed for nausea or vomiting., Disp: 10 tablet, Rfl: 1 ondansetron ODT (Zofran-ODT) 4 MG disintegrating tablet, Dissolve 1 tablet on the tongue every 6 hours as needed for nausea or vomiting., Disp: 20 tablet, Rfl: 0 pantoprazole (Protonix) 40 MG EC tablet, Take 1 tablet by mouth daily before breakfast. Do not crush, chew, or split., Disp: 30 tablet, Rfl: 2 [5] No Known Allergies documented in this encounter Plan of Treatment Upcoming Encounters Date Type Department Care Team (Late st Contact Info) Description 03/19/2025 12:10 PM EST Appointment [facility] [address] [place] [address] 03/19/2025 1:45 PM EST Office Visit [facility] [address] [place] [address] Karol Jane MD [address] [place] [address] Scheduled Orders Name Type Priority Associated Diagnoses Orde r Schedule CT Chest w IV Contrast Imaging Routine Endometrial cancer (CMS/HCC) Expected: 12/04/2024 (Approximate), Expires: 06/07/2026 CT Abdomen Pelvis w IV Contrast Imaging Routine Endometrial cancer (CMS/HCC) Expected: 12/04/2024 (Approximate), Expires: 06/07/2026 documented as of this encounter Visit Diagnoses Diagnosis Endometrial cancer- Primary Malignant neoplasm of corpus uteri, except isthmus documented in this encounter Additional Health Concerns Assessment Noted Time A fall risk assessment has been complete d for the patient 12/04/2024 10:03 AM EDT A Body Mass Index follow-up plan has been documented for the patient 11/21/2024 8:58 AM EDT documented as of this encounter Care Teams Medical Staffing Coordinator Relationship Specialty Start Date End Date Pcp, Saloni [address] [place] [address] PCP - General Family Medicine 06/16/23 documented as of this encounter
--- OUTSIDE RECORDS SUMMARY | 2025-01-19 08:55 | XMS_ITS | Encounter Summary ---
Author Organization [facility] Address [address] [place] [address] Care Team Providers Care Clinic Physician Name Role Phone Pcp, No Primary Care [...] in a fci (including now)? No 11/18/2024 [facility] Utilities Answer Date Recorded In the past 12 months has e [employer], gas, oil, or water [employer] threatened to shut off services in your [...] drink first t nicolas in the morning (EYE-CHECK WEIGHER) to steady your nerves or to get [...] EST Appointment [facility] [address] [place] [phone] 03/19/2025 1:45 PM EST Office Visit [facility] [address] [place] [phone] Karol Jane MD [address] [facility] [address] [place] [address] documented as of this encounter Visit Diagnoses Not on filedocumented in this encounter Additional Health Concerns Assessment Noted Time A fall risk assessment has been complete d for the patient 12/04/2024 10:03 AM EDT A Body Mass Index follow-up plan has been documented for the patient 11/21/2024 8:58 AM EDT documented as of this encounter Care Teams Clinic Physician Relationship Specialty Start Date End Date Pcp, Saloni [address] [place] [address] PCP - General Family Medicine 06/16/23 documented as of this encounter
--- OUTSIDE RECORDS SUMMARY | 2025-01-19 08:55 | XMS_ITS | Encounter Summary ---
Author Organization [facility] Address [address] [place] [address] Care Team Providers Care Accounting Manager Assistant Controller Name Role Phone Pcp, No Primary Care [...] any time in the past 12 m [facility], were you homeless or living in a nursing home (including now)? No 11/18/2024 [facility] Utilities Answer Date Recorded In [...] drink first t nicolas in the morning (EYE-OCCUP THERAPIST) to steady your nerves or to get [...] EST Appointment [facility] [address] [place] [address] 03/19/2025 1:45 PM EST Office Visit [facility] [address] [place] [address] Karol Jane MD 800 [facility] [address] [facility] [address] [place] [address] documented as of this encounter Visit Diagnoses Not on filedocumented in this encounter Additional Health Concerns Assessment Noted Time A Body Mass Index follow-up plan has been documented for the patient 11/21/2024 8:58 AM EDT documented as of this encounter Care Teams Accounting Manager Assistant Controller Relationship Specialty Start Date End Date Pcp, No [address] [place] [address] PCP - General Family Medicine 06/16/23 documented as of this encounter
--- OUTSIDE RECORDS SUMMARY | 2025-01-19 08:55 | XMS_ITS | Clinical Summary ---
Author Organization [facility] Address [address] [place] [address] Care Team Providers Care Art Preparator Name Role Phone Pcp, No Primary Care [...] that would be needed Recommend admission to gyn physician onc vs medicine EGS will continue to follow Endometrial cancer 11/10/2024 Assessment & Plan (11/11/2024 11:30 AM EDT): Bilingual Inside Sales Representative Onc consultation Assessment & Plan (11/10/2024 1:52 PM EDT): Bilingual Inside Sales Representative Onc consultation Metastasis to liver 11/10/2024 Metastasis [...] EDT Office Visit [facility] Gynecology [address] [facility] [address] [place] [address] Karol Jane MD Endometrial cancer (CMS/HCC) (Primary Dx) 12/04/2024 Travel 11/29/2024 Travel 11/19/2024 Travel 11/18/2024 Travel 11/17/2024 1:26 PM EDT - 11/21/2024 10:43 AM EDT Hospital Encounter [facility] Inpatient [facility] [address] [place] [address] Elisabeth Hernandez MD Miller, Rachel W, MD RUQ abdominal pain (Primary Dx); Endometrial cancer (CMS/HCC); Metastasis to liver (CMS/HCC); 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) Discharge Disposition: Home or Self Care 11/17/2024 Travel 11/14/2024 Travel 11/11/2024 Travel 11/09/2024 Travel 11/08/2024 11:13 AM EDT - 11/14/2024 8:50 PM EDT Hospital Encounter [facility] H Inpatient [address] [place] [address] Blaire Fuchs MD Houck, Jessica L, DO Tucker, Brian K, Morelia Irene MD Dietrich, Charles S, MD Miller, Rachel W, MD Metastasis to liver (CMS/HCC) (Primary Dx); Calculus of gallbladder without cholecystitis without obstruction Discharge Disposition: Home or Self Care 11/08/2024 Orders Only External Location [address] [place] [address] Provider, External 11/08/2024 Orders Only External Location [address] [place] [address] Provider, External 11/08/2024 Travel from Last 3 [...] in a mcfp (including now)? 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) to steady your nerves or to get [...] EST Appointment [facility] Radiology [address] [place] [address] 03/19/2025 1:45 PM EST Office Visit [facility] Gynecology [address] [place] [address] Karol Jaen MD [address] Jaramillo Sara [address] [place] [address] Health Maintenance Due Date Last Done Comments [facility]-Infant/Child/Adol SDOH Screenings 1978 SCK-KEOFL-35 Vaccine (#1) 1983 [facility]-DTaP,Tdap,and Td Vaccine s [...] this topic Medical Devices Implanted Type Area Production Expediter Device Identifier Shelf Expiration Date Model / Serial / Lot Vip Vascular Closure Device 6 Fr - [id number] Implanted:Qty: 1 on 11/18/2024 [id number] 07/29/2025 [id number] / / [id number] Procedures Procedure Name Priority Date/Time Associated Diagnosis [...] BIOPSY Routine 11/18/2024 2:55 PM EDT CRISTOBAL IA TUMOR SEEK HYBRID + IHCS AND OTHER [...] sult [facility] [address] [place] [address] * (ABNORMAL) CBC W/O Differential (11/21/2024 3:19 [...] ORDERABLES Final Re sult Performing Organization Address City/[facility] Co de Phone Number [facility] [address] [place] [address] * Phosphorus, Plasma (11/21/2024 3:19 AM EDT) [...] ORDERABLES Final Re sult Performing Organization Address City/[facility] Co de Phone Number [facility] [address] [place] [address] * (ABNORMAL) Magnesium (11/21/2024 3:19 AM EDT) [...] sult [facility] [address] [place] [address] * (ABNORMAL) Comprehensive metabolic panel (11/21/2024 3:19 [...] ORDERABLES Final Re sult Performing Organization Address City/[facility] Co de Phone Number [facility] [address] [place] [address] * Prepare Leukocyte Reduced RBC: 1 Units (11/20/2024 5:27 AM EDT) Only the most recent of3 resultswithin the time period is included. Product Code A2053C26 BLOO D BANK Dispense Status Transfused BLOOD BANK Blood Expiration Date [id number] BLOOD BANK Unit Number [id number] CH B LOOD BANK Product Blood Type 5100 BLOOD BANK Blood Type O+ BLOOD BANK Crossmatch Compatible BLOOD BANK Other Karol Jane MD BLOOD BANK PRODUCT ORDERABLES Final Result Performing Organization Address 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 At 58 [...] PM EDT) Case Report Surgical Pathology Case: [id number] Authorizing Provider: Franko Nava MD Collected: 11/18/2024 8317 Ordering Location: [facility] Emergency Department Received: 11/18/2024 1620 Pathologist: Geovanny Gomes DO Specimen: Liver 5:03 PM EDT [facility] Final Diagnosis LIVER, BIOPSY: - POSITIVE FOR METASTATIC CARCINOMA (SEE COMMENT). 5:03 PM EDT [facility] [...] high grade endometrioid adenocarcinoma. 5:03 PM EDT [facility] Clinical Information mets to the liver 5:03 PM EDT [facility] Special and Immunohistochemical Stains IHC: A1-2 CK7: Positive in tumor cells. A1-3 PAX8: Positive in tumor cells. A1-4 ER Non-Quantitative: Positive in tumor cells. All controls show appropriate reactivity. All immunohistochemist ry, in situ hybridization, and histochemical tests were developed by and are performed at the [facility], [address] [place] [address]. All tests reported here, except those addressing [...] MD LAB PATHOLOGY ORDERABLES [place] [address] * IR Embolization Tumor or Ischemia or [...] concern for intratumoral hemorrhage. Patient presents to [facility] for bland embolization of tumor. Additionally, rebiopsy of liver mass is planned due to possible progression. TECHNIQUE: Shingle Packer: Franko Nava MD Secondary Tank Truck Mechanic: Luis Miguel Estes M.D. Rad Dose: [phone] [...] 5 F vascular sheath. Using a 5 Malagasy contra 2 catheter, the celiac axis was [...] concern for intratumoral hemorrhage. Patient presents to [facility] embolization of tumor. Additionally, rebiopsy of liver mass isplanned due to possible progression. TECHNIQUE: Shingle Packer: Franko Nava MD Secondary Tank Truck Mechanic: Luis Miguel Estes M.D. Rad Dose: [phone] [...] 5 F vascular sheath. Using a 5 Malagasy contra 2catheter, the celiac axis was catheterized. [...] MD on 11/20/2024 12:24 PM us Franko Naav MD IMG IR PROCEDURES Final Resu lt [...] concern for intratumoral hemorrhage. Patient presents to [facility] for bland embolization of tumor. Additionally, rebiopsy of liver mass is planned due to possible progression. TECHNIQUE: Shingle Packer: Franko Nava MD Secondary Tank Truck Mechanic: Luis Miguel Estes M.D. Rad Dose: 1674 [...] 5 F vascular sheath. Using a 5 Malagasy contra 2 catheter, the celiac axis was [...] concern for intratumoral hemorrhage. Patient presents to [facility] embolization of tumor. Additionally, rebiopsy of liver mass isplanned due to possible progression. TECHNIQUE: Shingle Packer: Franko Nava MD Secondary Tank Truck Mechanic: Luis Miguel Estes M.D. Rad Dose: 1674 [...] 5 F vascular sheath. Using a 5 Malagasy contra 2catheter, the celiac axis was catheterized. [...] PROCEDURES Final Resu lt * (ABNORMAL) [facility] IA Cancer Seek Hybrid??? + IHCs and Other Tests by Tumor Type (11/18/2024 2:55 PM EDT) CARIS PD-L1 (22C3) Negative 2024 1:58 PM EDT [facility] [employer] CARIS Mismatch Repair Status Proficient (Intact) 11/30/2024 1:58 PM EDT [email or web address] CARIS Genomic Loss of Heterozygosity - [place] Low 1% 11/30/2024 1:58 PM EDT [facility] [employer] CARIS Microsatellite Instability - Exome Stable 11/30/2024 1:58 PM EDT [employer] CARIS Tumor Mutational [place] - [place]ome Low 1 per Mb 11/30/2024 1:58 PM EDT [facility] [employer] CARIS Estrogen Receptor Positive 11/30/2024 1:58 PM EDT [employer] CARIS Her2/Shoaib Negative 11/30/2024 1:58 PM EDT [employer] [employer] CARIS Progesterone Receptor Negative 11/30/2024 1:58 PM EDT [employer] CARIS MLH1 Intact nuclear expression 11/30/2024 1:58 PM EDT [facility] [employer] CARIS MSH2 Intact nuclear expression 11/30/2024 1:58 PM EDT [facility] CRISTOBAL MSH6 Intact nuclear expression 11/30/2024 1:58 PM EDT [facility] CRISTOBAL PMS2 Intact nuclear expression 11/30/2024 1:58 PM EDT [facility] CRISTOBAL HLA-A - Exome -,A*02:01 11/30/2024 1:58 PM EDT [facility] CRISTOBAL HLA-B - Exome B*40:01,B*44: 02 11/30/2024 1:58 PM EDT [employer] CRISTOBAL HLA-C - Exome C*03:04,C*05: 01 11/30/2024 1:58 PM EDT [facility] Tissue Non-blood Collection / Unknown 11/18/2024 2:55 PM EDT 11/21/2024 1:03 PM EDT Narrative This result has genomic variants that were not included in this document. us Karol Jane MD LAB MOL DX NO SOURCE Final Re sult [facility] [address] [address], [place] [phone] * Fine needle aspiration - Core Biopsy (11/18/2024 2:55 PM EDT) Case Report Cytology Case: [id number] Authorizing Provider: Franko Nava MD Collected: 11/18/2024 1455 Ordering Location: [facility] A Emergency Department Received: 11/18/2024 1520 Specimen: Liver, LIVER, CT GUIDED CORE BIOPSY 3:41 PM EDT [facility] Final Diagnosis A. LIVER, CT GUIDED CORE BIOPSY: - POSITIVE FOR MALIGNANCY, METASTATIC CARCINOMA CONSISTENT WITH PREVIOUSLY DIAGNOSED ENDOMETRIAL CARCINOMA, SEE COMMENT 3:41 PM EDT [facility] at 1541 EDT Comment History of [...] not identical to the previous surgical specimen ([id number]), the staining pattern noted below is identical to the previous tumor. 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 Material is present in the cell block for ancillary testing as clinically indicated. 3:[address] [facility] Special and Immunohistochemical Stains IHC: A1-1 CK-AE1/AE3 Positive A1-2 PAX8 Positive A1-3 ER Non-Quantitative Positive, moderate intensity in the majority of the cells A1-4 AZ Non-Quantitative Rare positive cells, weak intensity A1-5 Androgen Receptor Positive, variable All controls show appropriate reactivity. All immunohistochemis try, in situ hybridization, and histochemical tests were developed by and are performed at the [facility], [address] [place] [address]. All tests reported here, except those addressing [...] with Agreement Dr. Fuentes 3:[address] [facility] Immediate Evaluation Core biopsy performed by: [...] Cold Time: 13m 5 3:41 PM EDT [facility] Note: A resident was involved in the service. I attest I examined the relevant preparations for the specimens and confirmed the diagnosis or interpretation. 5 3:41 PM EDT [facility] Clinical Information No Dx found. 5 3:41 PM EDT [facility] Fine Needle Aspirate Liver structure / Unknown Non-blood Collection / Unknown 11/18/2024 2:55 PM EDT 11/18/2024 3:20 PM EDT us Franko Nava MD LAB CYTOLOGY ORDERABLES Sonali barahona Result [facility] [address] [place] [address] * Type and screen (11/18/2024 9:33 AM [...] ORDERABLE S Final Result [facility] [address] [place] [address], * PERIPHERAL IV (SMARTFORM LINK) (11/18/2024 7:57 [...] MD LAB BLOOD ORDERABLES Final Re sult [facility] [address] [place] [address] * [place] Abdomen RUQ (11/17/2024 2:00 PM [...] Result [facility] [address] [place] [address] * (ABNORMAL) PT-INR (11/17/2024 1:25 PM EDT) [...] INR 2.5 to 3.5 Prevention of recurrent [place] INR 2.5 to 3.5 us Kareem Guidry MD LAB BLOOD ORDERABLES [facility] al Result [facility] [address] [place] [address] * (ABNORMAL) CBC w/diff (11/17/2024 1:25 PM [...] [facility] - 11/17/2024 1:30 PM EDT Therapeutic decision making should be based on absolute values, rather than percentages. Kareem Guidry MD LAB BLOOD ORDERABLES Fin al Result Performing Organization Address City/[facility] Co de Phone Number [facility] [address] [place] [address] * (ABNORMAL) Lipase (11/17/2024 1:25 PM EDT) Lipase, Plasma 14(L) 19 - 63 U/L 11/17/2024 1:[address] [facility] Blood Venous blood specimen / Unknown Venipuncture / Unknown 11/17/2024 1:25 PM EDT 11/17/2024 1:27 PM EDT Kareem Guidry MD LAB BLOOD ORDERABLES Fin al Result Performing Organization Address City/[facility]/ZIP Co de Phone Number [facility] [address] [place] [address] * (ABNORMAL) Ionized calcium, whole blood (11/14/2024 1:07 AM EDT) Only the most recent of3 resultswithin the time period is included. Ionized Calcium, Whole Blood 4.4(L) 4.6 - 5.1 mg/dL LAB HEMATOLOGY METHOD 11/14/2024 1:58 AM EDT [facility] Blood Venous blood specimen / Unknown Venipuncture / Unknown 11/14/2024 1:07 AM EDT 11/14/2024 1:50 AM EDT us Korey Rolle MD LAB BLOOD ORDERABLES Final Result Performing Organization Address [facility] Co de Phone Number [facility] [address] [place] [address] * (ABNORMAL) Fibrinogen (11/14/2024 1:07 AM EDT) Pathologist [facility] Fibrinogen, Quantitative (Clottable) 512(H) 208 - 459 mg/dL LAB COAGULATION METHOD 11/14/2024 2:09 AM EDT [facility] Blood Venous blood specimen / Unknown Venipuncture / Unknown 11/14/2024 1:07 AM EDT 11/14/2024 1:48 AM EDT Karol Jane MD LAB BLOOD ORDERABLES Final Re sult Performing Organization Address [facility] Co de Phone Number [facility] [address] [place] [address] * (ABNORMAL) Basic metabolic panel (11/14/2024 1:07 AM EDT) Only the most recent of5 resultswithin the time period is included. [facility] Glucose, Plasma 85 74 - 99 mg/dL 11/14/2024 2:18 AM EDT [facility] BUN, Plasma 12 7 - 21 mg/dL 11/14/2024 2:18 AM EDT [facility] Creatinine, Plasma 0.99 0.60 - 1.10 mg/dL 11/14/2024 2:18 AM EDT [facility] BUN/Creatinine Ratio 12 11/14/2024 2:18 AM EDT [facility] Sodium, Plasma 142 136 - 145 mmol/L 11/14/2024 2:18 AM EDT [facility] Potassium, Plasma 3.7 3.6 - 4.9 mmol/L 11/14/2024 2:18 AM EDT [facility] Chloride, Plasma 108(H) 97 - 107 mmol/L 11/14/2024 2:18 AM EDT [facility] CO2, Plasma 21(L) 22 - 29 mmol/L 11/14/2024 2:18 AM EDT [facility] Anion Gap 13 6 - 16 mmol/L 11/14/2024 2:18 AM EDT [facility] Total Calcium, Plasma 8.1(L) 8.9 - 10.2 mg/dL 11/14/2024 2:18 AM EDT [facility] eGFRcr 71.4 mL/min/1.7 3m*2 11/14/2024 2:18 AM EDT [facility] Comment:Reported eGFRcr in m L/min/1.73m2 is based the CKD-EPI 2020 equation that does not use a race coefficient. Blood Venous blood specimen / Unknown Venipuncture / Unknown 11/14/2024 1:07 AM EDT 11/14/2024 1:49 AM EDT Korey Rolle MD LAB BLOOD ORDERABLES Final Result [facility] [address] [place] [address] * Comprehensive GI Panel by PCR (11/11/2024 8:01 PM EDT) Campylobacter PCR Result Not Detected Not Detected 11/12/2024 5:52 AM EDT [facility] Plesiomonas shigelloides PCR Result Not Detected Not Detected 11/12/2024 5:52 AM EDT [facility] Salmonella PCR Result Not Detected Not Detected 11/12/2024 5:52 AM EDT [facility] Vibrio species PCR Result Not Detected Not Detected 11/12/2024 5:52 AM EDT [facility] Vibrio cholerae PCR Result Not Detected Not Detected 11/12/2024 5:52 AM EDT [facility] Yersinia enterocolitica PCR Result Not Detected Not Detected 11/12/2024 5:52 AM EDT [facility] Enteroaggregative E. coli (EAEC) PCR Result Not Detected Not Detected 11/12/2024 5:52 AM EDT [facility] Enteropathogenic E. coli (EPEC) PCR Result Not Detected Not Detected 11/12/2024 5:52 AM EDT [facility] Enterotoxigenic E. coli (ETEC) lt/st PCR Result Not Detected Not Detected 11/12/2024 5:52 AM EDT [facility] Shiga-like Toxin-Producing E.coli (STEC) stx1/stx2 PCR Resu Not Detected Not Detected 11/12/2024 5:52 AM EDT [facility] E coli 0157 PCR Result Not Detected Not Detected 11/12/2024 5:52 AM EDT [facility] Shigella/Enteroinvas christal E. coli (EIEC) PCR Result Not Detected Not Detected 11/12/2024 5:52 AM EDT [facility] Cryptosporidium PCR Result Not Detected Not Detected 11/12/2024 5:52 AM EDT [facility] Cyclospora cayetanensis PCR Result Not Detected Not Detected 11/12/2024 5:52 AM EDT [facility] Entamoeba histolytica PCR Result Not Detected Not Detected 11/12/2024 5:52 AM EDT [facility] Giardia duodenalis (aka Giardia lamblia) PCR Result Not Detected Not Detected 11/12/2024 5:52 AM EDT [facility] Adenovirus F 40/41 PCR Result Not Detected Not Detected 11/12/2024 5:52 AM EDT [facility] Astrovirus PCR Result Not Detected Not Detected 11/12/2024 5:52 AM EDT [facility] Norovirus GI/GII PCR Result Not Detected Not Detected 11/12/2024 5:52 AM EDT [facility] Rotavirus A PCR Result Not Detected Not Detected 11/12/2024 5:52 AM EDT [facility] Sapovirus PCR Result Not Detected Not Detected 11/12/2024 5:52 AM EDT [facility] Stool Rectum structure / Unknown Non-blood Collection / Unknown 11/11/2024 8:01 PM EDT 11/11/2024 8:13 PM EDT [facility] - 11/12/2024 5:52 AM EDT This [...] GENERAL ORDERABLES Final Result Performing Organization Address [facility] Co de Phone Number [address] [address] * Clostridiodes (Clostridium) difficile PCR (11/11/2024 8:01 PM EDT) C difficile PCR toxin B gene DNA Result Not Detected Not Detected 11/11/2024 9:[address] [facility] Stool Rectum structure / Unknown Non-blood Collection / Unknown 11/11/2024 8:01 PM EDT 11/11/2024 8:13 PM EDT Narrative [facility] - 11/11/2024 9:22 PM EDT This [...] GENERAL ORDERABLES Final Result Performing Organization Address [facility] Co de Phone Number [address] [address] * CT Chest wo IV Contrast (11/11/2024 [...] Urine 76 mmol/L 11/11/2024 4:13 AM EDT [facility] Urine Urine specimen obtained by clean catch procedure / Unknown Non-blood Collection / Unknown 11/11/2024 3:34 AM EDT 11/11/2024 3:43 AM EDT Morelia Galvez MD LAB URINE ORDERABLES Final Result Performing Organization Address City/[facility]/ZIP Co de Phone Number [facility] [address] [place] [address] * Creatinine, urine, random (11/11/2024 3:34 AM EDT) Creatinine, Urine 105 mg/dL 11/11/2024 4:13 AM EDT [facility] Urine Urine specimen obtained by clean catch procedure / Unknown Non-blood Collection / Unknown 11/11/2024 3:34 AM EDT 11/11/2024 3:43 AM EDT Mroelia Galvez MD LAB URINE ORDERABLES Final Result [facility] [address] [place] [address] * CT Abdomen Pelvis w IV Contrast [...] (series 3, image 74 and series 5, [id number]) , previously measured 9.0 x 6.1 x [...] - 99 mg/dL 11/09/2024 7:13 AM EDT [facility] Comment:Accuracy of a glucos e result [...] for testing. Comment 11/09/2024 7:13 AM EDT [facility] Tank Truck Mechanic ID Justine Singh 11/09/2024 7:13 AM EDT [facility] Device ID [id number] 11/09/2024 7:13 AM EDT [facility] Specimen Type POC Capillary 11/09/2024 7:13 AM EDT [facility] Blood Capillary blood specimen / Unknown 11/09/2024 7:12 AM EDT 11/09/2024 7:13 AM EDT us Morelia Galvez MD LAB POINT OF CARE TEST DOCKED DEVICE UNSOLICITED RESULTS Final Result Performing Organization Address [facility] de Phone Number [facility] [address] [place] [address] * (ABNORMAL) Troponin T, High Sensitivity, 2 Hour, Plasma (11/08/2024 3:17 PM EDT) Troponin T, High Sensitivity, 2 Hour 17(H) <14 ng/L 11/08/2024 3:51 PM EDT [facility] Troponin Delta 3 <10 ng/L 11/08/2024 3:51 PM EDT [facility] Troponin Delta Interpretation Not Significant 11/08/2024 3:51 PM EDT [facility] Comment:Not Significant. No acute change in troponin observed between the baseline and 2 hour samples. Blood Venous blood specimen / Unknown Venipuncture / Unknown 11/08/2024 3:17 PM EDT 11/08/2024 3:24 PM EDT us Blaire Fuchs MD LAB BLOOD ORDERABLES Final R esult Performing Organization Address City/[facility] Co de Phone Number [facility] [address] [place] [address] * Heparin level (11/08/2024 1:57 PM EDT) Anti Xa Level Unfractionated Heparin <0.11 <1.00 IU/mL LAB COAGULATION METHOD 11/08/2024 2:26 PM EDT [facility] Blood Venous blood specimen / Unknown Venipuncture / Unknown 11/08/2024 1:57 PM EDT 11/08/2024 2:07 PM EDT Narrative [facility] - 11/08/2024 2:26 PM EDT Therapeutic Range: UFH Full Dose and ACS/IA protocols*: 0.30 - 0.70 IU/mL UFH Low Dose protocol*: 0.25 - 0.50 IU/mL UFH prophylaxis: Not established us Blaire Fuchs MD LAB BLOOD ORDERABLES Final R esult [facility] [address] [place] [address] * [place] Abdomen Focused Region GB, Bile [...] Reactive Non Reactive 11/08/2024 2:06 PM EDT [facility] Comment:Screening for HIV 1 & 2 antibodies, and P24 antigen is NONREACTIVE. No confirmatory testing is required. Blood Venous blood specimen / Unknown Venipuncture / Unknown 11/08/2024 1:12 PM EDT 11/08/2024 1:24 PM EDT us Blaire Fuchs MD LAB BLOOD ORDERABLES Final R esult Performing Organization Address City/[facility]/ZIP Co de Phone Number [facility] [address] [place] [address] * (ABNORMAL) Troponin now and 120 min (11/08/2024 1:12 PM EDT) [facility] Troponin T, High Sensitivity, 0 Hour 14(H) <14 ng/L 11/08/2024 1:[address] [facility] Blood Venous blood specimen / Unknown Venipuncture / Unknown 11/08/2024 1:12 PM EDT 11/08/2024 1:25 PM EDT us Blaire Fuchs MD LAB BLOOD ORDERABLES Final R esult [facility] [address] [place] [address] * (ABNORMAL) BNP (11/08/2024 1:12 PM EDT) [facility] N-Terminal, PROBNP, Plasma 523(H) 0 - 449 pg/mL 11/08/2024 1:55 PM EDT [facility] Blood Venous blood specimen / Unknown Venipuncture / Unknown 11/08/2024 1:12 PM EDT 11/08/2024 1:25 PM EDT us Blaire Fuchs MD LAB BLOOD ORDERABLES Final R esult [facility] [address] [place] [address] * EKG now - STAT (adult) (11/08/2024 11:25 AM EDT) Pathologist [facility] EKG DIAGNOSIS CLASS Borderline Abnormal MUSE ECG Ventricular Rate 94 BPM MUSE ECG Atrial Rate 94 BPM MUSE ECG [place] Interval 128 ms MUSE ECG QRSD Interval 100 ms MUSE ECG QT Interval 364 ms MUSE ECG QTC Interval 455 ms MUSE ECG P [place] 65 degrees MUSE ECG R [place] 11 degrees MUSE ECG T Wave [place] 8 degrees MUSE ECG Diagnosis Normal sinus rhythm MUSE ECG Diagnosis RSR' V1, is likely a normal variant MUSE ECG Diagnosis Borderline ECG MUSE ECG Diagnosis MUSE ECG Diagnosis Confirmed by Yovani Liu ([id number]) on 11/09/2024 9:56:32 AM MUSE ECG 11/08/2024 11:2 5 AM EDT 11/09/2024 9:56 AM EDT us Blaire Fuchs MD ECG ORDERABLES Final Result Performing Organization Address City/[facility]/ZIP Co de Phone Number MUSE ECG * US OUTSIDE IMAGES (11/08/2024 7:00 AM EDT) Only the most recent of2 resultswithin the time period is included. Anatomical Region Laterality Modality Ultrasound 11/08/2024 7:00 AM EDT us External Provider IMG US PROCEDURES Final Result * [place] Hepatitis C Antibody (12/16/2017 9:07 PM EDT) Pathologist [facility] [place] Hepatitis C Ab BEING REPEATED TO CONFIRM [...] updated to appropriate status: Yes Care Teams Art Preparator Relationship Specialty Start Date End Date Pcp, No [address] [place] [address] PCP - General Family Medicine 06/16/23
--- OUTSIDE RECORDS SUMMARY | 2025-01-19 08:55 | XMS_ITS ---
Author Organization [facility] Address [address] 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
--- NOTE | 2025-01-19 09:00 | US_ITS ---
FINAL REPORT CLINICAL HISTORY: TEST FOR CANCER CELLS-- EXAM CANCELLED -- NOT ENOUGH FLUID COMPARISON: 01/13/2025 FINDINGS: Ultrasound of the chest was performed with intention for thoracentesis. Tiny amount of pleural fluid was insufficient for thoracentesis and has dramatically improved from prior exam. IMPRESSION: Tiny amount of right pleural fluid, insufficient for thoracentesis. Reviewed, Interpreted and Dictated by Karishma Kwong MD Transcribed by Radha Ro Authenticated and . [facility]
[2025-01-19 09:01] VITALS: BP 141/78; PULSE 105; RESP 18; TEMP 36.3; O2SAT 97; BMI 33.5
== END 2025-01-19 23:59 | disposition home or self-care (01) ==
LOC: RAD 08:38
PROVIDERS: PCP Internal Medicine; Visit Provider Internal Medicine Medical Oncology
DX: C55 Malignant neoplasm of uterus, part unspecified (principal); J90 Pleural effusion, not elsewhere classified
CPT/HCPCS: 76604

== ENCOUNTER 2025-01-20 11:37 | Outpatient (CLI) | payer MEDICAID, SELFPAY ==
--- OUTSIDE RECORDS SUMMARY | 2024-11-17 12:26 | XMS_ITS | Encounter Summary ---
Author Organization [facility] Address [address] [place] [address] Care Team Providers Care Fiber Product Cutting Machine Operator Name Role Phone Pcp, No Primary Care Provider Unavailabl e Reason for Referral * Imaging (Routine) - Closed Specialty Diagnoses / Procedures Referred By Dung chang Referred To Contact Radiology Diagnoses Metastasis to liver Procedures IR Embolization Tumor or Ischemia or Infarction Franko Nava MD [address] [place] [address] Phone: tel: fax: Referral ID Status Reason Start Date Expiration Date Visits Re quested Visits Authorized [id number] Closed 11/14/2024 05/16/2026 1 1 Reason for Visit * Reason Comments Vomiting * Auth/Cert (Routine) Specialty Diagnoses / Procedures Referred By Dung chang Referred To Contact Diagnoses RUQ abdominal pain Vinicius Love MD [address] [facility] [address] [place] [address] Phone: tel: fax: PAV A Emergency Department [address] [place] [address] Phone: tel: Referral ID Status Reason Start Date Expiration Date Visits Re quested Visits Authorized [id number] 1 1 Encounter Details Date Type Department Care Team (Late st Contact Info) Description 11/17/2024 1:26 PM EDT - 11/21/2024 10:43 AM EDT Hospital Encounter PAV A Inpatient [facility] [address] [place] [phone] Elisabeth Hernandez MD [address] [place] [address] Vinicius Love MD [address] [place] [address] RUQ abdominal pain (Primary Dx); [...] any time in the past 12 m [facility], were you homeless or living in a long term (including now)? No 11/18/2024 [facility] Utilities Answer Date Recorded In the [...] drink first t nicolas in the morning (EYE-HEAD PORTER) to steady your nerves or to get [...] - 11/17/2024 3:36 PM EDT Call MD marketing automation manager for GYO service if: - you have a fever of 100.4 F or more - vaginal bleeding similar to a period - uncontrolled pain - difficulty with urination - persistent nausea/vomiting Follow up: Dr. Vinicius Love - [facility] [address], [address], [place] [address] documented in this encounter Medications at Time [...] from the original note were not included. [id number] Pantoprazole WHY is this medicine prescribed? Pantoprazole [...] or doctor for a copy of the exhaust equipment operator's information for the patient. Are there OTHER [...] and out of their sight and reach. [email or web address] Dispose of unneeded medications in a way [...] be awakened, immediately call emergency services at 771. What OTHER INFORMATION should I know? Keep [...] of all of the prescription and nonprescription (raar-nzi-ekbdcfk) medicines, vitamins, minerals, and dietary supplements you [...] or pharmacist about specific clinical use. The [place] [employer] represents that the information provided hereunder was formulated with a reasonable standard of care, and in conformity with professional standards in the field. The [place] [employer] makes no representations or warranties, express or implied, including, but not limited to, any implied warranty of merchantability and/or fitness for a particular purpose, with respect to such information and specifically disclaims all such warranties. Users are advised that decisions regarding drug therapy are complex medical decisions requiring the independent, informed decision of an appropriate health career technology teacher, and the information is provided for informational purposes only. The entire monograph for a drug should be reviewed for a thorough understanding of the drug's actions, uses and side effects. The [place] [employer] does not endorse or recommend the use of any drug.The information is not a substitute for medical care. AHFS?? Patient Medication Information?. ?? Copyright, 2023. The [place] [employer]-System Pharmacists??, [address], [address], [place], [place]. All Rights Reserved. Duplication for commercial use must be authorized by [facility]. Selected Revisions: January 24, 2023. AHFS?? Patient Medication Information?. ?? Copyright, 2024 * Ismael [facility] - Kim Black RN - 11/21/2024 8:57 AM EDT Images from the original note were not included. [id number] Ondansetron WHY is this medicine prescribed? Ondansetron [...] and out of their sight and reach. [email or web address].org Dispose of unneeded medications in a way [...] be awakened, immediately call emergency services at 282. Symptoms of overdose may include: ? sudden [...] of all of the prescription and nonprescription (virf-hlp-mviadxp) medicines, vitamins, minerals, and dietary supplements you [...] or pharmacist about specific clinical use. The [place] [employer]. represents that the information provided hereunder was formulated with a reasonable standard of care, and in conformity with professional standards in the field. The [place] [employer]. makes no representations or warranties, express or implied, including, but not limited to, any implied warranty of merchantability and/or fitness for a particular purpose, with respect to such information and specifically disclaims all such warranties. Users are advised that decisions regarding drug therapy are complex medical decisions requiring the independent, informed decision of an appropriate health career technology teacher, and the information is provided for informational purposes only. The entire monograph for a drug should be reviewed for a thorough understanding of the drug's actions, uses and side effects. The [place] [employer] does not endorse or recommend the use of any drug.The information is not a substitute for medical care. AHFS?? Patient Medication Information?. ?? Copyright, 2023. The [employer] Pharmacists??, [address], [address], [place], [place]. All Rights Reserved. Duplication for commercial use must be authorized by [facility]. Selected Revisions: September 29, 2023. AHFS?? Patient Medication Information?. ?? Copyright, 2024 * Ismael [facility] - Kim Black RN - 11/21/2024 8:57 AM EDT Images from the original note were not included. [id number] Magnesium Oxide WHY is this medicine prescribed? [...] of all of the prescription and nonprescription (ktyq-zer-lrfilkx) medicines, vitamins, minerals, and dietary supplements you [...] or pharmacist about specific clinical use. The [place] [employer]. represents that the information provided hereunder was formulated with a reasonable standard of care, and in conformity with professional standards in the field. The [place] [employer]. makes no representations or warranties, express or implied, including, but not limited to, any implied warranty of merchantability and/or fitness for a particular purpose, with respect to such information and specifically disclaims all such warranties. Users are advised that decisions regarding drug therapy are complex medical decisions requiring the independent, informed decision of an appropriate health career technology teacher, and the information is provided for informational purposes only. The entire monograph for a drug should be reviewed for a thorough understanding of the drug's actions, uses and side effects. The [place] [employer] does not endorse or recommend the use of any drug.The information is not a substitute for medical care. AHFS?? Patient Medication Information?. ?? Copyright, 2023. The [employer] Pharmacists??, [address], [address], [place], [place]. All Rights Reserved. Duplication for commercial use must be authorized by [facility]. Selected Revisions: August 30, 2023. AHFS?? Patient Medication Information?. ?? Copyright, 2024 * [facility] - Kim Black RN - 11/21/2024 8:56 AM EDT Images from the original note were not included. [id number] Abdominal Pain Abdominal pain means pain in [...] All medicines you take, both prescription and crkx-uta-hjugsbn ? What vitamins, herbs, and other supplements [...] again, start lightly. Eat small amounts of dwwu-vk-xyehgo, low-fat foods. These include applesauce, toast, or [...] bed. Last Reviewed Date: 2023 00:00:00 ?? [id number] [employer]. All rights reserved. This information is not intended as a substitute for professional medical care. Always follow your healthcare professional's instructions. * Discharge Instr - Other Orders - Kim Black RN - 11/21/2024 8:56 AM EDT If you need to contact your doctors after hours, please call [phone] and ask for the doctor brittany for GYO-MEAT AND SEAFOOD CLERK Oncology. * Discharge Summary - Maggie Nguyen MD - 11/21/2024 8:21 AM EDT Images from the original note were not included. DISCHARGE SUMMARY Hospitalization Admit Date/Time: 11/17/2024 1:26 PM Admitting Attending: Vinicius Love Discharge Date: 11/21/2024 Discharge Attending Physician: Vinicius Love MD PCP name and Address: Pcp, Saloni [facility] [address] Referring provider name and address: No referring provider defined for this encounter. Chief Concern, Brief History of Present Illness, and Hospital Course Radha Aparicio is a 44 y.o. with high grade endometroid adenocarcinoma who presented with n/v and loose stools and was admitted on 11/17. RUQ US showed gallbladder thickening concerning for cholecystitis. Patient was made NPO and underwent Grand Chain embolization of liver mass and liver mass [...] MD in 1 week. Surgeries and Procedures Grand Chain embolization of liver mass with liver mass [...] Your Medications These medications were sent to [facility] - [place], [place] - 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 Vinicius Love - [facility] [address], [address], [place] [address] Outpatient Follow-Up Future Appointments Date Time Provider [...] am with associated diarrhea - Labs H 81-85-5y-02-55-1h-26-22-1u P [id number] W 57-1-19-15-13 Lipase 14 - RUQ US 11/17: cholelithiasis w/ gallbladder wall thickening c/f cholecystitis. Redemonstrated largeintraparenchymal liver mass. Few punctate nonobstructive renal calculi in R kidney, no hydro - PE: +Trenton sign, no signs of acute peritonitis - [...] biopsy with IR on 11/18 - AST [id number] ALT [phone] - T. Bili 0.7-0.7 - discussed with [...] per chart review) with Dr. Veloz at [facility] - [place] to follow up [...] several large liver lesions (right dome -- [id number] (enlarged from 4.7 x 4.2) & 10.5 [...] conclusion of chemotherapy) - Care transferred to [facility] 11/10, s/p cefoxitin (11/08-11/10) - s/p liver embolization and biopsy 11/18 - liver biopsy 11/18 positive for malignant carcinoma # FEN/PPX - GIS/HLIV - SCDs/pLov - Replete electrolytes PRN Dispo: Discharge today Please message on-call [facility] resident via [facility] Secure Chat or page [phone] for questions or concerns regarding this patient's [...] as documented. * Care Plan - Ro Barebr RN - 11/20/2024 1:16 PM EDT Problem: [...] Note Radha Aparicio 44 y.o. female CSN: [id number] Admission: 11/17/2024 1:26 PM Primary Problem: RUQ abdominal pain Primary Political Cartoonist: Primary Caregiver: Self Assistance Available at Discharge: aunt Clara and Jennifer Current Outpatient/Agency/Support Group: clinic(s) Availability of Care Givers (#Hours): 24 hours Family/Political Cartoonist(s) Willingness Assessed to care for patient at home: Yes Family/Political Cartoonist(s) Readiness Assessed to care for patient at home: Yes Housing Circumstances-Z Codes: Housing Circumstances (select all that apply): Low Income (101-300% Federal Poverty Guidlines) - Z596 Discharge Facility/Level of Care Needs: Discharge Facility/Level of Care Needs: 1-Home or Self Care Patient's Choice of Community Agency(s): [facility] clinic Patient/Family Anticipated Services at Transition: Patient/Family [...] and will provide transport and home assistance. [id number] enrollment complete. Radha Langston RN * Significant [...] cholecystitis. Patient was made NPO and underwent Grand Chain embolization of liver mass and liver mass [...] am with associated diarrhea - Labs H 03-74-1g-25-21-1u P [id number] W 12-9-11 Lipase 14 - RUQ US 11/17: cholelithiasis w/ gallbladder wall thickening c/f cholecystitis. Redemonstrated largeintraparenchymal liver mass. Few punctate nonobstructive renal calculi in R kidney, no hydro - PE: +Trenton sign, no signs of acute peritonitis - [...] per chart review) with Dr. Veloz at [facility] - [place] to follow up [...] discussed biopsy oflesions and discussion with Dr. Loev's office, unsure if this has been completed [...] several large liver lesions (right dome -- [id number] (enlarged from 4.7 x 4.2) & 10.5 [...] management. Please message on-call GYO resident via [facility] Secure Chat or page [phone] for questions or concerns regarding this patient's [...] from the original note were not included. [id number] Preventing a Surgical Site Infection A risk [...] of infection. ? Controlled body temperature. A klwzc-exrd-twlgpx temperature during or after surgery prevents oxygen [...] and water or with an alcohol-based hand principal system software engineer before and after caring for you. Don?t [...] away. Last Reviewed Date: 2024 00:00:00 ?? [id number] [employer]. All rights reserved. This information is not intended as a substitute for professional medical care. Always follow your healthcare professional's instructions. * Ismael [facility] - Erika Sawyer RN - 11/19/2024 9:24 AM EDT Images from the original note were not included. 38727 HIDA Scan A HIDA (hepatobiliary iminodiacetic acid [...] you?re taking. This includes vitamins, herbs, and blce-ruq-vqbqozz medicines. You may be told to stop [...] is done by a nuclear medicine or clinical laboratory technologist. It can be done in a [...] tracer Last Reviewed Date: 2022 00:00:00 ?? 9704-6036 [employer]. All rights reserved. This information is not intended as a substitute for professional medical care. Always follow your healthcare professional's instructions. * Ismael Velázquez - Erika Sawyer RN - 11/19/2024 9:24 AM EDT Images from the original note were not included. [id number] Possible Gallstone with Biliary Colic (Presumed) Your [...] rate Last Reviewed Date: 2021 00:00:00 ?? 3393-4033 [employer]. All rights reserved. This information is not intended as a substitute for professional medical care. Always follow your healthcare professional's instructions. * Ismael Velázquez - Erika Sawyer RN - 11/19/2024 9:24 AM EDT Images from the original note were not included. 64785 Cholecystectomy You?ve had painful attacks caused by [...] medicines you take. Include both prescription and fzym-xpk-afckujd medicines. Also include vitamins, herbs, and supplements. [...] time Last Reviewed Date: 2023 00:00:00 ?? 0744-7049 [employer]. All rights reserved. This information is not [...] the video go to this web address: [email or web address] Or, scan this QR code with your smart phone ?? [facility] * Consults - Shruthi Espitia RD - 11/19/2024 8:26 AM EDT Adult Nutrition Evaluation Note Radha Aparicio 44 y.o. female CSN: [id number] Room/Bed 140/140A Nutrition evaluation type: assessment Reason [...] 2 (BMI 35-39.9) Weight History: UBW ~245# [place] Body Weight (kg): 65.9 Percent [place] Body Weight: 174 Estimated Needs: Current Nutrition [...] in R kidney, no hydro - PE: +Trenton sign, no signs of acute peritonitis - [...] per chart review) with Dr. Veloz at [facility] - [place] to follow up [...] several large liver lesions (right dome -- [id number] (enlarged from 4.7 x 4.2) & 10.5 [...] conclusion of chemotherapy) - Care transferred to [facility] 11/10, s/p cefoxitin (11/08-11/10) - s/p liver embolization and biopsy 11/18 Plan: - f/up biopsy results # FEN/PPX - NPO/LR @ 75 - SCDs/hold plov in setting of hemorrhagic liver lesions - Replete electrolytes PRN Dispo: Continue inpatient management. Please message on-call [facility] resident via [facility] Secure Chat or page [phone] for questions or concerns regarding this patient's [...] Note Radha Aparicio 44 y.o. female CSN: [id number] Admission: 11/17/2024 1:26 PM Primary Problem: RUQ abdominal pain Solutions Sales Executive reviewed chart and spoke with patient to complete this Initial Case Management Assessment. PCP: Dr. Benny Gonzalez Emergency Contact: Extended Emergency Contact Information Primary Emergency Contact: Kaushal Aparicio Mobile Relation: Brother Preferred language: Upper Sorbian Fabrication Technician needed? No Secondary Emergency Contact: Irish Joiner Mobile Relation: Daughter Insurance: Primary Visit Coverage Payer Plan Sponsor Code Group Number Group Name [employer] MED[employer] [facility] MEDICAID . Primary Visit Coverage Subscriber Subscriber ID Subscriber Name Subscriber SSN Subscriber Address [id number] RADHA APARICIO [id number] [place] [address] Patient information: re-admit to with high grade endometrioid adenocarcinoma and persistent n/v/diarrhea and ab pain c/f cholecystitis. Patient reports doing well on pain and nausea regimen since discharge 11/12 Nausea and vomiting started 9/8 am with associated diarrhea. Home address and insurance confirmed. Reports good support from family and home assistance and transport. Daily Living Activities: independent [address] [place] [address] Current DME: none reported. Income Information: unemployed Income meets expenses. Housing Circumstances-Z Codes: low income 101-300% Federal Poverty Guideline Patient Referred to: n/a Anticipated Discharge Date: 2-4 day Patient's Discharge Goal: home Assistance Available at Discharge: self/family Discharge Transport: family Follow Up Transport: family Home Health / Home Infusion / Outpatient Dialysis Services: none reported Living Will/Advance Directive/Power of Explosion Welder /Guardian: none reported Have you reviewed your [...] also pertinent to this visit. Planned Procedure: Grand Chain embolization of liver mass with liver mass [...] been discussed with the patient and/or their hr representative. All questions answered and they agree [...] in R kidney, no hydro - PE: +Trenton sign, no signs of acute peritonitis - [...] per chart review) with Dr. Veloz at [facility] - [place] to follow up [...] several large liver lesions (right dome -- [id number] (enlarged from 4.7 x 4.2) & 10.5 [...] management. Please message on-call GYO resident via [facility] Secure Chat or page [phone] for questions or concerns regarding this patient's [...] that would be needed Recommend admission to architectural technologist onc vs medicine EGS will continue to follow * H&P - Rebekah Kwan MD - 11/17/2024 4:08 PM EDT Gynecologic Oncology History and Physical Patient Name: Radha Aparicio : 1980 Date of Admission: 11/17/24 Chief Concern: Chief Complaint Patient presents with Vomiting Primary Oncologist: Dr. Vinicius Love/Dr. Veloz ([place]) Subjective Subjective History of Present Illness: Radha [...] no distension. Tenderness: Tenderness: TTP of RUQ, +Trenton sign. There is no guarding or rebound. [...] in R kidney, no hydro - PE: +Trenton sign, no signs of acute peritonitis - [...] per chart review) with Dr. Veloz at [facility] - [place] to follow up [...] several large liver lesions (right dome -- [id number] (enlarged from 4.7 x 4.2) & 10.5 [...] acute Please message on-call [facility]YO resident via [facility] Secure Chat or page [phone] for questions or concerns regarding this patient's care. Rebekah FLORES PGY-1 *1953 [1] Past Medical History: Diagnosis Date Disease of salivary gland, unspecified Parotid mass [2] Past Surgical History: Procedure Laterality Date HYSTERECTOMY N/A Hysterectomy from [facility] TUBAL LIGATION N/A Tubal ligation from [facility] [3] Family History Problem Relation Name Age [...] No Social Connections: Unknown (12/17/2022) Received from [facility] Family and Community Support Help with Day-to-Day [...] hysterectomy in 2018 along with chemo from 6713-1513) that previously saw the GYO team and was lost to follow up who recently was admitted with concern for RUQ pain, with recent admission when noted tohave worsening mets to liver and spleen with further workup pending and negative cholecystitis concern presenting to [facility] on 11/17/2024 with recurrent RUQ symptoms. [...] that would be needed Recommend admission to architectural technologist onc vs medicine EGS will continue to [...] (BMI 30-39.9) Dispo: Admit to medicine vs architectural technologist onc CODE STATUS: not specified This Consult, [...] and urinary symptoms. History provided by: Patient boring and filling machine operator used: No I have reviewed and agree [...] evaluate [RM] 1636 EGS rec: admission to architectural technologist onc vs medicine. recommend HIDA scan to further evaluate if there isconcern for cholecystitis before considering risks and benefits of any intervention that would be needed based on that [PA] 1731 MEAT AND SEAFOOD CLERK ONC to admit patient to their team. [...] admission for the listed diagnoses. The OG MEAT AND SEAFOOD CLERK service wasconsulted for admission and was agreeable to admit to Acute Floor (Med/Surg). ED Prescriptions None Disposition Admit Admitting/Attending Physician: VINICIUS LOVE [[id number]] Provider Care Team: [facility] MEAT AND SEAFOOD CLERK ONCOLOGY [[id number]] Are they the primary team?: [...] EST Appointment [facility] Radiology [address] [place] [address] 03/19/2025 1:45 PM EST Office Visit [facility] Gynecology [address] [place] [address] Vinicius Love MD [address] [place] [address] Pending Results Name Type Priority [...] - 4.5 mg/dL 11/21/2024 5:27 AM EDT [facility] Blood Venous blood specimen / Unknown Venipuncture / Unknown 11/21/2024 3:19 AM EDT 11/21/2024 3:27 AM EDT us Vinicius Love MD LAB BLOOD ORDERABLES Final Re sult Performing Organization Address City/[facility]/[place] [address] * (ABNORMAL) Magnesium (11/21/2024 3:19 AM EDT) Magnesium, Plasma 1.6(L) 1.9 - 2.4 mg/dL 11/21/2024 3:58 AM EDT [facility] Blood Venous blood specimen / Unknown Venipuncture / Unknown 11/21/2024 3:19 AM EDT 11/21/2024 3:27 AM EDT us Vinicius Love MD LAB BLOOD ORDERABLES Final Re sult Performing Organization Address [facility] [place] [address] * (ABNORMAL) IONIZED CALCIUM, SERUM (11/21/2024 3:19 AM EDT) Ionized Calcium, Serum 4.5(L) 4.6 - 5.3 mg/dL LAB HEMATOLOGY METHOD 11/21/2024 3:53 AM EDT [facility] Blood Venous blood specimen / Unknown Venipuncture / Unknown 11/21/2024 3:19 AM EDT 11/21/2024 3:27 AM EDT us Vinicius Love MD LAB BLOOD ORDERABLES Final Re sult Performing Organization Address City/[facility]/[place] [address] * (ABNORMAL) Comprehensive metabolic panel (11/21/2024 3:19 AM EDT) [facility] Glucose, Plasma 116(H) 74 - 99 mg/dL 11/21/2024 3:58 AM EDT [facility] BUN, Plasma 11 7 - 21 mg/dL 11/21/2024 3:58 AM EDT [facility] Creatinine, Plasma 0.77 0.60 - 1.10 mg/dL 11/21/2024 3:58 AM EDT [facility] BUN/Creatinine Ratio 14 11/21/2024 3:58 AM EDT [facility] Sodium, Plasma 137 136 - 145 mmol/L 11/21/2024 3:58 AM EDT [facility] Potassium, Plasma 3.4(L) 3.6 - 4.9 mmol/L 11/21/2024 3:58 AM EDT [facility] Chloride, Plasma 103 97 - 107 mmol/L 11/21/2024 3:58 AM EDT [facility] CO2, Plasma 21(L) 22 - 29 mmol/L 11/21/2024 3:58 AM EDT [facility] Anion Gap 13 6 - 16 mmol/L 11/21/2024 3:58 AM EDT [facility] Total Calcium, Plasma 7.9(L) 8.9 - 10.2 mg/dL 11/21/2024 3:58 AM EDT [facility] Total Protein 5.7(L) 6.3 - 7.9 g/dL 11/21/2024 3:58 AM EDT [facility] Albumin, Plasma 2.4(L) 3.5 - 5.2 g/dL 11/21/2024 3:58 AM EDT [facility] AST, Plasma 188(H) 10 - 35 U/L 11/21/2024 3:58 AM EDT [facility] ALT, Plasma 167(H) 10 - 35 U/L 11/21/2024 3:58 AM EDT [facility] Alkaline Phosphatase, Plasma 505(H) 35 - 104 U/L 11/21/2024 3:58 AM EDT [facility] Total Bilirubin, Plasma 1.0 0.2 - 1.1 mg/dL 11/21/2024 3:58 AM EDT [facility] eGFRcr 96.5 mL/min/1.7 3m*2 11/21/2024 3:58 AM EDT [facility] Comment:Reported eGFRcr in m L/min/1.73m2 is based the CKD-EPI 2020 equation that does not use a race coefficient. Blood Venous blood specimen / Unknown Venipuncture / Unknown 11/21/2024 3:19 AM EDT 11/21/2024 3:27 AM EDT us Vinicius Love MD LAB BLOOD ORDERABLES Final Re sult [facility] [address] [place] [address] * (ABNORMAL) CBC W/O Differential (11/21/2024 3:19 AM EDT) WBC Count 12.55(H) 3.70 - 10.30 10*3/uL LAB HEMATOLOGY METHOD 11/21/2024 3:35 AM EDT [facility] RBC Count 2.70(L) 3.90 - 5.20 10*6/uL LAB HEMATOLOGY METHOD 11/21/2024 3:35 AM EDT [facility] HGB 7.3(L) 11.2 - 15.7 g/dL LAB HEMATOLOGY METHOD 11/21/2024 3:35 AM EDT [facility] HCT 22.1(L) 34.0 - 45.0 % LAB HEMATOLOGY METHOD 11/21/2024 3:35 AM EDT [facility] Platelet Count 236 155 - 369 10*3/uL LAB HEMATOLOGY METHOD 11/21/2024 3:35 AM EDT [facility] MCV 82 79 - 98 fL LAB HEMATOLOGY METHOD 11/21/2024 3:35 AM EDT [facility] MCH 27.0 26.0 - 32.0 pg LAB HEMATOLOGY METHOD 11/21/2024 3:35 AM EDT [facility] MCHC 33.0 30.7 - 35.5 g/dL LAB HEMATOLOGY METHOD 11/21/2024 3:35 AM EDT [facility] RDW 16.0(H) 11.5 - 14.5 % LAB HEMATOLOGY METHOD 11/21/2024 3:35 AM EDT [facility] MPV 9.7 8.8 - 12.5 fL LAB HEMATOLOGY METHOD 11/21/2024 3:35 AM EDT [facility] nRBC 0.0 <=0.0 per 100 WBCs LAB HEMATOLOGY METHOD 11/21/2024 3:35 AM EDT [facility] Blood Venous blood specimen / Unknown Venipuncture / Unknown 11/21/2024 3:19 AM EDT 11/21/2024 3:28 AM EDT us Vinicius Love MD LAB BLOOD ORDERABLES Final Re sult [facility] [address] [place] [address] * (ABNORMAL) Comprehensive metabolic panel (11/20/2024 12:42 PM EDT) Glucose, Plasma 119(H) 74 - 99 mg/dL 11/20/2024 1:49 PM EDT [facility] BUN, Plasma 13 7 - 21 mg/dL 11/20/2024 1:49 PM EDT [facility] Creatinine, Plasma 0.79 0.60 - 1.10 mg/dL 11/20/2024 1:49 PM EDT [facility] BUN/Creatinine Ratio 16 11/20/2024 1:49 PM EDT [facility] Sodium, Plasma 135(L) 136 - 145 mmol/L 11/20/2024 1:49 PM EDT [facility] Potassium, Plasma 3.8 3.6 - 4.9 mmol/L 11/20/2024 1:49 PM EDT [facility] Chloride, Plasma 103 97 - 107 mmol/L 11/20/2024 1:49 PM EDT [facility] CO2, Plasma 20(L) 22 - 29 mmol/L 11/20/2024 1:49 PM EDT [facility] Anion Gap 12 6 - 16 mmol/L 11/20/2024 1:49 PM EDT [facility] Total Calcium, Plasma 8.1(L) 8.9 - 10.2 mg/dL 11/20/2024 1:49 PM EDT [facility] Total Protein 6.3 6.3 - 7.9 g/dL 11/20/2024 1:49 PM EDT [facility] Albumin, Plasma 2.7(L) 3.5 - 5.2 g/dL 11/20/2024 1:49 PM EDT [facility] AST, Plasma 442(H) 10 - 35 U/L 11/20/2024 1:49 PM EDT [facility] ALT, Plasma 254(H) 10 - 35 U/L 11/20/2024 1:49 PM EDT [facility] Alkaline Phosphatase, Plasma 513(H) 35 - 104 U/L 11/20/2024 1:49 PM EDT [facility] Total Bilirubin, Plasma 1.1 0.2 - 1.1 mg/dL 11/20/2024 1:49 PM EDT [facility] eGFRcr 93.6 mL/min/1.7 3m*2 11/20/2024 1:49 PM EDT [facility] Comment:Reported eGFRcr in m L/min/1.73m2 is based the CKD-EPI 2020 equation that does not use a race coefficient. Blood Venous blood specimen / Unknown Venipuncture / Unknown 11/20/2024 12:42 PM EDT 11/20/2024 1:11 PM EDT us Vinicius Love MD LAB BLOOD ORDERABLES Final Re sult [facility] [address] [place] [address] * (ABNORMAL) CBC W/O Differential (11/20/2024 12:42 PM EDT) WBC Count 15.25(H) 3.70 - 10.30 10*3/uL LAB HEMATOLOGY METHOD 11/20/2024 1:23 PM EDT [facility] RBC Count 3.09(L) 3.90 - 5.20 10*6/uL LAB HEMATOLOGY METHOD 11/20/2024 1:23 PM EDT [facility] HGB 8.5(L) 11.2 - 15.7 g/dL LAB HEMATOLOGY METHOD 11/20/2024 1:23 PM EDT [facility] HCT 25.5(L) 34.0 - 45.0 % LAB HEMATOLOGY METHOD 11/20/2024 1:23 PM EDT [facility] Platelet Count 292 155 - 369 10*3/uL LAB HEMATOLOGY METHOD 11/20/2024 1:23 PM EDT [facility] MCV 83 79 - 98 fL LAB HEMATOLOGY METHOD 11/20/2024 1:23 PM EDT [facility] MCH 27.5 26.0 - 32.0 pg LAB HEMATOLOGY METHOD 11/20/2024 1:23 PM EDT [facility] MCHC 33.3 30.7 - 35.5 g/dL LAB HEMATOLOGY METHOD 11/20/2024 1:23 PM EDT [facility] RDW 15.9(H) 11.5 - 14.5 % LAB HEMATOLOGY METHOD 11/20/2024 1:23 PM EDT [facility] MPV 9.7 8.8 - 12.5 fL LAB HEMATOLOGY METHOD 11/20/2024 1:23 PM EDT [facility] nRBC 0.0 <=0.0 per 100 WBCs LAB HEMATOLOGY METHOD 11/20/2024 1:23 PM EDT [facility] Blood Venous blood specimen / Unknown Venipuncture / Unknown 11/20/2024 12:42 PM EDT 11/20/2024 1:06 PM EDT Vinicius Love MD LAB BLOOD ORDERABLES Final Re sult [facility] [address] [place] [address] * Transfuse RBC (11/20/2024 10:47 AM EDT) us Vinicius Love MD BLOOD TRANSFUSION ORDERABLES Final Result * Transfuse RBC: 1 Units (11/20/2024 10:47 AM EDT) us Vinicius Love MD BLOOD TRANSFUSION ORDERABLES Final Result * Prepare Leukocyte Reduced RBC: 1 Units (11/20/2024 5:27 AM EDT) Product Code [id number] CH BLOO D BANK Dispense Status Transfused BLOOD BANK Blood Expiration Date [id number] BLOOD BANK Unit Number [id number] CH B LOOD BANK Product Blood Type 5100 BLOOD BANK Blood Type O+ CH BLOOD BANK Crossmatch Compatible BLOOD BANK Other Vinicius Love MD BLOOD BANK PRODUCT ORDERABLES Final Result Performing Organization Address City/[facility]/ZIP Co de Phone Number BLOOD BANK [address] * Prepare Leukocyte Reduced RBC: 1 Units (11/20/2024 4:53 AM EDT) Product Code [id number] BLOO D BANK Dispense Status Transfused BLOOD BANK Blood Expiration Date [id number] BLOOD BANK Unit Number [id number] B LOOD BANK Product Blood Type 5100 BLOOD BANK Blood Type O+ BLOOD BANK Crossmatch Compatible BLOOD BANK Other Vinicius Love MD BLOOD BANK PRODUCT ORDERABLES Final Result Performing Organization Address [facility] Co de Phone Number BLOOD BANK [address] * (ABNORMAL) Magnesium (11/20/2024 2:39 AM EDT) Magnesium, Plasma 1.7(L) 1.9 - 2.4 mg/dL 11/20/2024 4:00 AM EDT [facility] Blood Venous blood specimen / Unknown Venipuncture / Unknown 11/20/2024 2:39 AM EDT 11/20/2024 3:28 AM EDT Vinicius Love MD LAB BLOOD ORDERABLES Final Re sult Performing Organization Address City/[facility]/ZIP Co de Phone Number [facility] [address] [place] [address] * IONIZED CALCIUM, SERUM (11/20/2024 2:39 AM EDT) Ionized Calcium, Serum 4.6 4.6 - 5.3 mg/dL LAB HEMATOLOGY METHOD 11/20/2024 4:06 AM EDT [facility] Blood Venous blood specimen / Unknown Venipuncture / Unknown 11/20/2024 2:39 AM EDT 11/20/2024 3:28 AM EDT us Vinicius Love MD LAB BLOOD ORDERABLES Final Re sult [facility] [address] [place] [address] * (ABNORMAL) Comprehensive metabolic panel (11/20/2024 2:39 AM EDT) Pathologist [facility] [place] Glucose, Plasma 108(H) 74 - 99 mg/dL 11/20/2024 4:17 AM EDT [facility] BUN, Plasma 15 7 - 21 mg/dL 11/20/2024 4:17 AM EDT [facility] Creatinine, Plasma 0.91 0.60 - 1.10 mg/dL 11/20/2024 4:17 AM EDT [facility] BUN/Creatinine Ratio 16 11/20/2024 4:17 AM EDT [facility] Sodium, Plasma 139 136 - 145 mmol/L 11/20/2024 4:17 AM EDT [facility] Potassium, Plasma 3.9 3.6 - 4.9 mmol/L 11/20/2024 4:17 AM EDT [facility] Chloride, Plasma 105 97 - 107 mmol/L 11/20/2024 4:17 AM EDT [facility] CO2, Plasma 22 22 - 29 mmol/L 11/20/2024 4:17 AM EDT [facility] Anion Gap 12 6 - 16 mmol/L 11/20/2024 4:17 AM EDT [facility] Total Calcium, Plasma 8.0(L) 8.9 - 10.2 mg/dL 11/20/2024 4:17 AM EDT [facility] Total Protein 6.0(L) 6.3 - 7.9 g/dL 11/20/2024 4:17 AM EDT [facility] Albumin, Plasma 2.5(L) 3.5 - 5.2 g/dL 11/20/2024 4:17 AM EDT [facility] AST, Plasma 701(H) 10 - 35 U/L 11/20/2024 4:17 AM EDT [facility] ALT, Plasma 326(H) 10 - 35 U/L 11/20/2024 4:17 AM EDT [facility] Alkaline Phosphatase, Plasma 478(H) 35 - 104 U/L 11/20/2024 4:17 AM EDT [facility] Total Bilirubin, Plasma 0.7 0.2 - 1.1 mg/dL 11/20/2024 4:17 AM EDT [facility] eGFRcr 79.0 mL/min/1.7 3m*2 11/20/2024 4:17 AM EDT [facility] Comment:Reported eGFRcr in m L/min/1.73m2 is based the CKD-EPI 2020 equation that does not use a race coefficient. Blood Venous blood specimen / Unknown Venipuncture / Unknown 11/20/2024 2:39 AM EDT 11/20/2024 3:28 AM EDT us Vinicius Love MD LAB BLOOD ORDERABLES Final Re sult [facility] [address] [place] [address] * (ABNORMAL) CBC W/O Differential (11/20/2024 2:39 AM EDT) WBC Count 10.93(H) 3.70 - 10.30 10*3/uL LAB HEMATOLOGY METHOD 11/20/2024 3:40 AM EDT [facility] RBC Count 2.57(L) 3.90 - 5.20 10*6/uL LAB HEMATOLOGY METHOD 11/20/2024 3:40 AM EDT [facility] HGB 6.7(L) 11.2 - 15.7 g/dL LAB HEMATOLOGY METHOD 11/20/2024 3:40 AM EDT [facility] HCT 21.2(L) 34.0 - 45.0 % LAB HEMATOLOGY METHOD 11/20/2024 3:40 AM EDT [facility] Platelet Count 261 155 - 369 10*3/uL LAB HEMATOLOGY METHOD 11/20/2024 3:40 AM EDT [facility] MCV 83 79 - 98 fL LAB HEMATOLOGY METHOD 11/20/2024 3:40 AM EDT [facility] MCH 26.1 26.0 - 32.0 pg LAB HEMATOLOGY METHOD 11/20/2024 3:40 AM EDT [facility] MCHC 31.6 30.7 - 35.5 g/dL LAB HEMATOLOGY METHOD 11/20/2024 3:40 AM EDT [facility] RDW 16.5(H) 11.5 - 14.5 % LAB HEMATOLOGY METHOD 11/20/2024 3:40 AM EDT [facility] MPV 10.1 8.8 - 12.5 fL LAB HEMATOLOGY METHOD 11/20/2024 3:40 AM EDT [facility] nRBC 0.0 <=0.0 per 100 WBCs LAB HEMATOLOGY METHOD 11/20/2024 3:40 AM EDT [facility] Blood Venous blood specimen / Unknown Venipuncture / Unknown 11/20/2024 2:39 AM EDT 11/20/2024 3:24 AM EDT us Vinicius Love MD LAB BLOOD ORDERABLES Final Re sult [facility] [address] [place] [address] * NM Hepatobiliary Scan w Pharm Challenge [...] 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 At 58 [...] 11/19/2024 5:29 PM us Vinicius Love MD [facility] PROCEDURES Final Resul t * Magnesium (11/19/2024 4:11 AM EDT) Magnesium, Plasma 2.0 1.9 - 2.4 mg/dL 11/19/2024 5:24 AM EDT [facility] Blood Venous blood specimen / Unknown Venipuncture / Unknown 11/19/2024 4:11 AM EDT 11/19/2024 4:17 AM EDT us Vinicius Love MD LAB BLOOD ORDERABLES Final Re sult Performing Organization Address [facility] Co de Phone Number [facility] [address] [place] [address] * IONIZED CALCIUM, SERUM (11/19/2024 4:11 AM EDT) Ionized Calcium, Serum 4.7 4.6 - 5.3 mg/dL LAB HEMATOLOGY METHOD 11/19/2024 4:45 AM EDT [facility] Blood Venous blood specimen / Unknown Venipuncture / Unknown 11/19/2024 4:11 AM EDT 11/19/2024 4:17 AM EDT us Vinicius Love MD LAB BLOOD ORDERABLES Final Re sult Performing Organization Address [facility] Co de Phone Number [facility] [address] [place] [address] * (ABNORMAL) Comprehensive metabolic panel (11/19/2024 4:11 AM EDT) Glucose, Plasma 118(H) 74 - 99 mg/dL 11/19/2024 5:24 AM EDT [facility] BUN, Plasma 11 7 - 21 mg/dL 11/19/2024 5:24 AM EDT [facility] Creatinine, Plasma 0.79 0.60 - 1.10 mg/dL 11/19/2024 5:24 AM EDT [facility] BUN/Creatinine Ratio 14 11/19/2024 5:24 AM EDT [facility] Sodium, Plasma 139 136 - 145 mmol/L 11/19/2024 5:24 AM EDT [facility] Potassium, Plasma 4.4 3.6 - 4.9 mmol/L 11/19/2024 5:24 AM EDT [facility] Chloride, Plasma 104 97 - 107 mmol/L 11/19/2024 5:24 AM EDT [facility] CO2, Plasma 20(L) 22 - 29 mmol/L 11/19/2024 5:24 AM EDT [facility] Anion Gap 15 6 - 16 mmol/L 11/19/2024 5:24 AM EDT [facility] Total Calcium, Plasma 8.4(L) 8.9 - 10.2 mg/dL 11/19/2024 5:24 AM EDT [facility] Total Protein 6.9 6.3 - 7.9 g/dL 11/19/2024 5:24 AM EDT [facility] Albumin, Plasma 3.0(L) 3.5 - 5.2 g/dL 11/19/2024 5:24 AM EDT [facility] AST, Plasma 1,474(H) 10 - 35 U/L 11/19/2024 5:24 AM EDT [facility] ALT, Plasma 388(H) 10 - 35 U/L 11/19/2024 5:24 AM EDT [facility] Alkaline Phosphatase, Plasma 321(H) 35 - 104 U/L 11/19/2024 5:24 AM EDT [facility] Total Bilirubin, Plasma 0.7 0.2 - 1.1 mg/dL 11/19/2024 5:24 AM EDT [facility] eGFRcr 93.6 mL/min/1.7 3m*2 11/19/2024 5:24 AM EDT [facility] Comment:Reported eGFRcr in m L/min/1.73m2 is based the CKD-EPI 2020 equation that does not use a race coefficient. Blood Venous blood specimen / Unknown Venipuncture / Unknown 11/19/2024 4:11 AM EDT 11/19/2024 4:17 AM EDT us Vinicius Love MD LAB BLOOD ORDERABLES Final Re sult [facility] [address] [place] [address] * (ABNORMAL) CBC W/O Differential (11/19/2024 4:11 AM EDT) WBC Count 10.74(H) 3.70 - 10.30 10*3/uL LAB HEMATOLOGY METHOD 11/19/2024 4:37 AM EDT [facility] RBC Count 2.90(L) 3.90 - 5.20 10*6/uL LAB HEMATOLOGY METHOD 11/19/2024 4:37 AM EDT [facility] HGB 7.8(L) 11.2 - 15.7 g/dL LAB HEMATOLOGY METHOD 11/19/2024 4:37 AM EDT [facility] HCT 24.5(L) 34.0 - 45.0 % LAB HEMATOLOGY METHOD 11/19/2024 4:37 AM EDT [facility] Platelet Count 249 155 - 369 10*3/uL LAB HEMATOLOGY METHOD 11/19/2024 4:37 AM EDT [facility] MCV 85 79 - 98 fL LAB HEMATOLOGY METHOD 11/19/2024 4:37 AM EDT [facility] MCH 26.9 26.0 - 32.0 pg LAB HEMATOLOGY METHOD 11/19/2024 4:37 AM EDT [facility] MCHC 31.8 30.7 - 35.5 g/dL LAB HEMATOLOGY METHOD 11/19/2024 4:37 AM EDT [facility] RDW 16.1(H) 11.5 - 14.5 % LAB HEMATOLOGY METHOD 11/19/2024 4:37 AM EDT [facility] MPV 10.1 8.8 - 12.5 fL LAB HEMATOLOGY METHOD 11/19/2024 4:37 AM EDT [facility] nRBC 0.0 <=0.0 per 100 WBCs LAB HEMATOLOGY METHOD 11/19/2024 4:37 AM EDT [facility] Blood Venous blood specimen / Unknown Venipuncture / Unknown 11/19/2024 4:11 AM EDT 11/19/2024 4:17 AM EDT us Vinicius Love MD LAB BLOOD ORDERABLES Final Re sult [facility] [address] [place] [address] * Surgical Pathology Exam (11/18/2024 3:57 PM EDT) Case Report Surgical Pathology Case: [id number] Authorizing Provider: Franko Nava MD Collected: 11/18/2024 7921 Ordering Location: [facility] Emergency Department Received: 11/18/2024 1620 Pathologist: Geovanny Gomes DO Specimen: Liver 5 5:03 PM EDT [facility] Final Diagnosis LIVER, BIOPSY: - POSITIVE FOR METASTATIC CARCINOMA (SEE COMMENT). 5 5:03 PM EDT [facility] at 1703 EDT Comment The patient's [...] grade endometrioid adenocarcinoma. 5 5:03 PM EDT [facility] Clinical Information mets to the liver 5 5:03 PM EDT [facility] Special and Immunohistochemical Stains IHC: A1-2 CK7: Positive in tumor cells. A1-3 PAX8: Positive in tumor cells. A1-4 ER Non-Quantitative: Positive in tumor cells. All controls show appropriate reactivity. All immunohistochemist ry, in situ hybridization, and histochemical tests were developed by and are performed at the [facility], [address] [place] [address]. All tests reported here, except those addressing [...] negativity on decalcified specimens. 5:03 PM EDT [facility] Gross Description A. LIVER Received in formalin labeled [place] iver , are multiple red-rosales soft tissue cores measuring from 0.3 cm to 1.5 cm in length and up to 0.1 cm in diameter. Entirely submitted in cassette A1. Cold Time: 0 Ro Mcallister 5:03 PM EDT [facility] Intradepartmental Consultation with Agreement Dr. Fuentes 5:03 PM EDT [facility] Note: A resident was involved in the service. I attest I examined the relevant preparations for the specimens and confirmed the diagnosis or interpretation. 5:03 PM EDT [facility] Tissue Liver structure / Unknown Non-blood Collection / Unknown 11/18/2024 3:57 PM EDT 11/18/2024 4:20 PM EDT us Franko Nava MD LAB PATHOLOGY ORDERABLES Fin al Result [facility] [address] [place] [address] * US Guided Needle Biopsy Liver (11/18/2024 [...] concern for intratumoral hemorrhage. Patient presents to [facility] for bland embolization of tumor. Additionally, rebiopsy of liver mass is planned due to possible progression. TECHNIQUE: [employer] Etl Developer: Franko Nava MD Secondary Casing Flusher: Luis Miguel Estes M.D. Rad Dose: [id number] [...] PACS. After standard exchanges, a 0.035 inch First Active Medi[employer] wire was advanced. Access was secured using a 5 F vascular sheath. Using a 5 [place]ibian contra 2 catheter, the celiac axis was [...] concern for intratumoral hemorrhage. Patient presents to [facility] for[place]ust[place] embolization of tumor. Additionally, rebiopsy of liver mass isplanned due to possible progression. TECHNIQUE: [employer] Etl Developer: Franko Nava MD Secondary Casing Flusher: Luis Miguel Estes M.D. Rad Dose: 1674 [...] 5 F vascular sheath. Using a 5 [place]ib[place] contra 2catheter, the celiac axis was catheterized. [...] 11/20/2024 12:24 PM us Franko Nava MD [facility] [place] US PROCEDURES Final Resu lt * IR [...] concern for intratumoral hemorrhage. Patient presents to [facility] for bland embolization of tumor. Additionally, rebiopsy of liver mass is planned due to possible progression. TECHNIQUE: [employer] Etl Developer: Franko Nava MD Secondary Casing Flusher: Luis Miguel Estes M.D. Rad Dose: 1674 [...] 5 F vascular sheath. Using a 5 [place]ib[place] contra 2 catheter, the celiac axis was [...] concern for intratumoral hemorrhage. Patient presents to [facility] embolization of tumor. Additionally, rebiopsy of liver mass isplanned due to possible progression. TECHNIQUE: [employer] Etl Developer: Franko Nava MD Secondary Casing Flusher: Luis Miguel Estes M.D. Rad Dose: 1674 [...] 5 F vascular sheath. Using a 5 [place]ibian contra 2catheter, the celiac axis was catheterized. [...] 2:55 PM EDT) Case Report Cytology Case: [id number] Authorizing Provider: Franko Nava MD Collected: 11/18/2024 1455 Ordering Location: [facility] Emergency Department Received: 11/18/2024 1520 Specimen: Liver, LIVER, CT GUIDED CORE BIOPSY 3:41 PM EDT [facility] Final Diagnosis A. LIVER, CT GUIDED CORE BIOPSY: - POSITIVE FOR MALIGNANCY, METASTATIC CARCINOMA CONSISTENT WITH PREVIOUSLY DIAGNOSED ENDOMETRIAL CARCINOMA, SEE COMMENT 3:41 PM EDT [facility] at 1541 EDT Comment History of metastatic [...] not identical to the previous surgical specimen ([id number]), the staining pattern noted below is identical to the previous tumor. 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 Material is present in the cell block for ancillary testing as clinically indicated. 3:41 PM EDT [facility] Special and Immunohistochemical Stains IHC: A1-1 CK-AE1/AE3 Positive A1-2 PAX8 Positive A1-3 ER Non-Quantitative Positive, moderate intensity in the majority of the cells A1-4 MS Non-Quantitative Rare positive cells, weak intensity A1-5 Androgen Receptor Positive, variable All controls show appropriate reactivity. All immunohistochemis try, in situ hybridization, and histochemical tests were developed by and are performed at the [facility], [address] [place] [address]. All tests reported here, except those addressing [...] on decalcified specimens. 5 3:41 PM EDT [facility] Intradepartmental Consultation with Agreement Dr. Fuentes 5 3:41 PM EDT [facility] Immediate Evaluation Core biopsy performed by: Dr. Nava Number of sticks: 5 This service has been rendered in part by a resident. A pathologist has personally reviewed the slides/tissue and has rendered and is responsible for diagnosis for the diagnosis that appears on the report. 5 3:41 PM EDT [facility] Clinical History metastesis to liver 5 3:41 PM EDT [facility] Procedure Type US 5 3:41 PM EDT [facility] Size/Description of Lesion liver tumor 5 3:41 PM EDT [facility] Cancer History Yes 5 3:41 PM EDT [facility] Gross Description A. LIVER, CT GUIDED [...] fixation. Cold Time: 13m 3:41 PM EDT [facility] Note: A resident was involved in the service. I attest I examined the relevant preparations for the specimens and confirmed the diagnosis or interpretation. 3:41 PM EDT [facility] Clinical Information No Dx found. 3:41 PM EDT [facility] Fine Needle Aspirate Liver structure / Unknown Non-blood Collection / Unknown 11/18/2024 2:55 PM EDT 11/18/2024 3:20 PM EDT Franko Nava MD LAB CYTOLOGY ORDERABLES Sonali l Result [facility] [address] [place] [address] * Transfuse RBC (11/18/2024 1:00 PM EDT) [...] ORDERABLE S Final Result Performing Organization Address City/[facility]/ZIP Co de Phone Number BLOOD BANK [address] [place] [address], [place] * Prepare Leukocyte Reduced RBC: 1 Units (11/18/2024 8:49 AM EDT) Product Code [id number] BLOO D BANK Dispense Status Transfused BLOOD BANK Blood Expiration Date [id number] BLOOD BANK Unit Number [id number] B LOOD BANK Product Blood Type 5100 BLOOD BANK Blood Type O+ BLOOD BANK Crossmatch Compatible BLOOD BANK Other Vinicius Love MD BLOOD BANK PRODUCT ORDERABLES Final Result Performing Organization Address City/State/[facility] Co de Phone Number BLOOD BANK [address] * PERIPHERAL IV (SMARTFORM LINK) (11/18/2024 [...] Hematocrit, Blood (11/18/2024 5:54 AM EDT) Pathologist [facility] [place] HGB 6.9(L) 11.2 - 15.7 g/dL LAB HEMATOLOGY METHOD 11/18/2024 6:06 AM EDT [facility] HCT 21.3(L) 34.0 - 45.0 % LAB HEMATOLOGY METHOD 11/18/2024 6:06 AM EDT [facility] Blood Venous blood specimen / Unknown Venipuncture / Unknown 11/18/2024 5:54 AM EDT 11/18/2024 6:04 AM EDT us Vinicius Love MD LAB BLOOD ORDERABLES Final Re sult Performing Organization Address City/[facility] Co de Phone Number [facility] [address] [place] [address] * (ABNORMAL) Magnesium (11/18/2024 4:36 AM EDT) Magnesium, Plasma 1.6(L) 1.9 - 2.4 mg/dL 11/18/2024 5:20 AM EDT [facility] Blood Venous blood specimen / Unknown Venipuncture / Unknown 11/18/2024 4:36 AM EDT 11/18/2024 4:48 AM EDT us Vinicius Love MD LAB BLOOD ORDERABLES Final Re sult Performing Organization Address [facility] Co de Phone Number [facility] [address] [place] [address] * IONIZED CALCIUM, SERUM (11/18/2024 4:36 AM EDT) Ionized Calcium, Serum 4.6 4.6 - 5.3 mg/dL LAB HEMATOLOGY METHOD 11/18/2024 5:29 AM EDT [facility] Blood Venous blood specimen / Unknown Venipuncture / Unknown 11/18/2024 4:36 AM EDT 11/18/2024 4:48 AM EDT us Vinicius Love MD LAB BLOOD ORDERABLES Final Re sult Performing Organization Address [facility] Co de Phone Number [facility] [address] [place] [address] * (ABNORMAL) Comprehensive metabolic panel (11/18/2024 4:36 AM EDT) Glucose, Plasma 91 74 - 99 mg/dL 11/18/2024 5:20 AM EDT [facility] BUN, Plasma 10 7 - 21 mg/dL 11/18/2024 5:20 AM EDT [facility] Creatinine, Plasma 0.90 0.60 - 1.10 mg/dL 11/18/2024 5:20 AM EDT [facility] BUN/Creatinine Ratio 11 11/18/2024 5:20 AM EDT [facility] Sodium, Plasma 140 136 - 145 mmol/L 11/18/2024 5:20 AM EDT [facility] Potassium, Plasma 3.6 3.6 - 4.9 mmol/L 11/18/2024 5:20 AM EDT [facility] Chloride, Plasma 105 97 - 107 mmol/L 11/18/2024 5:20 AM EDT [facility] CO2, Plasma 22 22 - 29 mmol/L 11/18/2024 5:20 AM EDT [facility] Anion Gap 13 6 - 16 mmol/L 11/18/2024 5:20 AM EDT [facility] Total Calcium, Plasma 7.9(L) 8.9 - 10.2 mg/dL 11/18/2024 5:20 AM EDT [facility] Total Protein 5.8(L) 6.3 - 7.9 g/dL 11/18/2024 5:20 AM EDT [facility] Albumin, Plasma 2.6(L) 3.5 - 5.2 g/dL 11/18/2024 5:20 AM EDT [facility] AST, Plasma 23 10 - 35 U/L 11/18/2024 5:20 AM EDT [facility] ALT, Plasma 12 10 - 35 U/L 11/18/2024 5:20 AM EDT [facility] Alkaline Phosphatase, Plasma 263(H) 35 - 104 U/L 11/18/2024 5:20 AM EDT [facility] Total Bilirubin, Plasma 0.5 0.2 - 1.1 mg/dL 11/18/2024 5:20 AM EDT [facility] eGFRcr 80.0 mL/min/1.7 3m*2 11/18/2024 5:20 AM EDT [facility] Comment:Reported eGFRcr in m L/min/1.73m2 is based the CKD-EPI 2020 equation that does not use a race coefficient. Blood Venous blood specimen / Unknown Venipuncture / Unknown 11/18/2024 4:36 AM EDT 11/18/2024 4:48 AM EDT us Vinicius Love MD LAB BLOOD ORDERABLES Final Re sult [facility] [address] [place] [address] * (ABNORMAL) CBC W/O Differential (11/18/2024 4:36 AM EDT) WBC Count 9.43 3.70 - 10.30 10*3/uL LAB HEMATOLOGY METHOD 11/18/2024 4:51 AM EDT [facility] RBC Count 2.39(L) 3.90 - 5.20 10*6/uL LAB HEMATOLOGY METHOD 11/18/2024 4:51 AM EDT [facility] HGB 6.4(LL) 11.2 - 15.7 g/dL LAB HEMATOLOGY METHOD 11/18/2024 4:51 AM EDT [facility] HCT 19.8(L) 34.0 - 45.0 % LAB HEMATOLOGY METHOD 11/18/2024 4:51 AM EDT [facility] Platelet Count 220 155 - 369 10*3/uL LAB HEMATOLOGY METHOD 11/18/2024 4:51 AM EDT [facility] MCV 83 79 - 98 fL LAB HEMATOLOGY METHOD 11/18/2024 4:51 AM EDT [facility] MCH 26.8 26.0 - 32.0 pg LAB HEMATOLOGY METHOD 11/18/2024 4:51 AM EDT [facility] MCHC 32.3 30.7 - 35.5 g/dL LAB HEMATOLOGY METHOD 11/18/2024 4:51 AM EDT [facility] RDW 16.7(H) 11.5 - 14.5 % LAB HEMATOLOGY METHOD 11/18/2024 4:51 AM EDT [facility] MPV 9.3 8.8 - 12.5 fL LAB HEMATOLOGY METHOD 11/18/2024 4:51 AM EDT [facility] nRBC 0.0 <=0.0 per 100 WBCs LAB HEMATOLOGY METHOD 11/18/2024 4:51 AM EDT [facility] Blood Venous blood specimen / Unknown Venipuncture / Unknown 11/18/2024 4:36 AM EDT 11/18/2024 4:42 AM EDT us Vinicius Love MD LAB BLOOD ORDERABLES Final Re sult [facility] [address] [place] [address] * US Abdomen RUQ (11/17/2024 2:00 PM [...] - 35 sec 11/17/2024 1:44 PM EDT [facility] Blood Venous blood specimen / Unknown Venipuncture / Unknown 11/17/2024 1:25 PM EDT 11/17/2024 1:27 PM EDT us Kareem Guidry MD LAB BLOOD ORDERABLES Fin al Result [facility] [address] [place] [address] * (ABNORMAL) PT-INR (11/17/2024 1:25 PM EDT) Prothrombin Time 15.4(H) 12.0 - 14.3 sec 11/17/2024 1:43 PM EDT [facility] INR 1.2(H) 0.9 - 1.1 11/17/2024 1:43 PM EDT [facility] Blood Venous blood specimen / Unknown Venipuncture / Unknown 11/17/2024 1:25 PM EDT 11/17/2024 1:27 PM EDT Narrative [facility] - 11/17/2024 1:43 PM EDT OPTIMAL INR RANGES FOR PATIENT ON ORAL ANTICOAGULANT THERAPY Prevention of venous thromboembolism INR 2.0 to 3.0 In patients with heart disease: Atrial fibrillation INR 2.0 to 3.0 Valvular heart disease INR 2.0 to 3.0 Tissue heart valves INR 2.0 to 3.0 Mechanical prosthetic valves INR 2.5 to 3.5 Prevention of recurrent NH INR 2.5 to 3.5 Kareem Guidry MD LAB BLOOD ORDERABLES Fin al Result [facility] [address] [place] [address] * (ABNORMAL) Lipase (11/17/2024 1:25 PM EDT) Lipase, Plasma 14(L) 19 - 63 U/L 11/17/2024 1:50 PM EDT [facility] Blood Venous blood specimen / Unknown Venipuncture / Unknown 11/17/2024 1:25 PM EDT 11/17/2024 1:27 PM EDT Kareem Guidry MD LAB BLOOD ORDERABLES Fin al Result [facility] [address] [place] [address] * (ABNORMAL) CMP (11/17/2024 1:25 PM EDT) Glucose, Plasma 89 74 - 99 mg/dL 11/17/2024 1:50 PM EDT [facility] BUN, Plasma 10 7 - 21 mg/dL 11/17/2024 1:50 PM EDT [facility] Creatinine, Plasma 0.88 0.60 - 1.10 mg/dL 11/17/2024 1:50 PM EDT [facility] BUN/Creatinine Ratio 11 11/17/2024 1:50 PM EDT [facility] Sodium, Plasma 137 136 - 145 mmol/L 11/17/2024 1:50 PM EDT [facility] Potassium, Plasma 3.6 3.6 - 4.9 mmol/L 11/17/2024 1:50 PM EDT [facility] Chloride, Plasma 102 97 - 107 mmol/L 11/17/2024 1:50 PM EDT [facility] CO2, Plasma 20(L) 22 - 29 mmol/L 11/17/2024 1:50 PM EDT [facility] Anion Gap 15 6 - 16 mmol/L 11/17/2024 1:50 PM EDT [facility] Total Calcium, Plasma 9.0 8.9 - 10.2 mg/dL 11/17/2024 1:50 PM EDT [facility] Total Protein 7.5 6.3 - 7.9 g/dL 11/17/2024 1:50 PM EDT [facility] Albumin, Plasma 3.0(L) 3.5 - 5.2 g/dL 11/17/2024 1:50 PM EDT [facility] AST, Plasma 32 10 - 35 U/L 11/17/2024 1:50 PM EDT [facility] ALT, Plasma 18 10 - 35 U/L 11/17/2024 1:50 PM EDT [facility] Alkaline Phosphatase, Plasma 378(H) 35 - 104 U/L 11/17/2024 1:50 PM EDT [facility] Total Bilirubin, Plasma 0.7 0.2 - 1.1 mg/dL 11/17/2024 1:50 PM EDT [facility] eGFRcr 82.2 mL/min/1.7 3m*2 11/17/2024 1:50 PM EDT [facility] Comment:Reported eGFRcr in m L/min/1.73m2 is based the CKD-EPI 2020 equation that does not use a race coefficient. Blood Venous blood specimen / Unknown Venipuncture / Unknown 11/17/2024 1:25 PM EDT 11/17/2024 1:27 PM EDT us Kareem Guidry MD LAB BLOOD ORDERABLES Fin al Result [facility] [address] [place] [address] * (ABNORMAL) CBC w/diff (11/17/2024 1:25 PM EDT) WBC Count 12.34(H) 3.70 - 10.30 10*3/uL LAB HEMATOLOGY METHOD 11/17/2024 1:30 PM EDT [facility] RBC Count 3.19(L) 3.90 - 5.20 10*6/uL LAB HEMATOLOGY METHOD 11/17/2024 1:30 PM EDT [facility] HGB 8.4(L) 11.2 - 15.7 g/dL LAB HEMATOLOGY METHOD 11/17/2024 1:30 PM EDT [facility] HCT 27.1(L) 34.0 - 45.0 % LAB HEMATOLOGY METHOD 11/17/2024 1:30 PM EDT [facility] Platelet Count 308 155 - 369 10*3/uL LAB HEMATOLOGY METHOD 11/17/2024 1:30 PM EDT [facility] MCV 85 79 - 98 fL LAB HEMATOLOGY METHOD 11/17/2024 1:30 PM EDT [facility] MCH 26.3 26.0 - 32.0 pg LAB HEMATOLOGY METHOD 11/17/2024 1:30 PM EDT [facility] MCHC 31.0 30.7 - 35.5 g/dL LAB HEMATOLOGY METHOD 11/17/2024 1:30 PM EDT [facility] RDW 16.7(H) 11.5 - 14.5 % LAB HEMATOLOGY METHOD 11/17/2024 1:30 PM EDT [facility] MPV 9.6 8.8 - 12.5 fL LAB HEMATOLOGY METHOD 11/17/2024 1:30 PM EDT [facility] nRBC 0.0 <=0.0 per 100 WBCs LAB HEMATOLOGY METHOD 11/17/2024 1:30 PM EDT [facility] Differential Type Automated LAB HEMATOLOGY METHOD 11/17/2024 1:30 PM EDT [facility] Neutrophils % 80 % LAB HEMATOLOGY METHOD 11/17/2024 1:30 PM EDT [facility] Lymphocytes % 11 % LAB HEMATOLOGY METHOD 11/17/2024 1:30 PM EDT [facility] Monocytes % 5 % LAB HEMATOLOGY METHOD 11/17/2024 1:30 PM EDT [facility] Eosinophils % 1 % LAB HEMATOLOGY METHOD 11/17/2024 1:30 PM EDT [facility] Basophils % 1 % LAB HEMATOLOGY METHOD 11/17/2024 1:30 PM EDT [facility] Immature Granulocytes % 2 % LAB HEMATOLOGY METHOD 11/17/2024 1:30 PM EDT [facility] Neutrophils Absolute 10.04(H) 1.60 - 6.10 10*3/uL LAB HEMATOLOGY METHOD 11/17/2024 1:30 PM EDT [facility] Lymphocytes Absolute 1.31 1.20 - 3.90 10*3/uL LAB HEMATOLOGY METHOD 11/17/2024 1:30 PM EDT [facility] Monocytes Absolute 0.62 0.30 - 0.90 10*3/uL LAB HEMATOLOGY METHOD 11/17/2024 1:30 PM EDT [facility] Eosinophils Absolute 0.08 0.00 - 0.50 10*3/uL LAB HEMATOLOGY METHOD 11/17/2024 1:30 PM EDT [facility] Basophils Absolute 0.06 0.00 - 0.10 10*3/uL LAB HEMATOLOGY METHOD 11/17/2024 1:30 PM EDT [facility] Immature Granulocytes Absolute 0.23(H) 0.00 - 0.06 10*3/uL LAB HEMATOLOGY METHOD 11/17/2024 1:30 PM EDT [facility] Blood Venous blood specimen / Unknown Venipuncture / Unknown 11/17/2024 1:25 PM EDT 11/17/2024 1:27 PM EDT [facility] - 11/17/2024 1:30 PM EDT Therapeutic decision making should be based on absolute values, rather than percentages. us Kareem Guidry MD LAB BLOOD ORDERABLES Fin al Result [facility] [address] [place] [address] documented in this encounter Visit Diagnoses Diagnosis [...] at 2333, Until Sun11/18/24 at 1559, Routine, Moderate/Severe Pain > or =3: CPOT; > or =4: FLACC, PAINAD, NPASS, NRS, Whittaker-Varela Faces; > or =5: DVPRS, NIPS Given 11/17/2024 11:39 PM EDT 5 mg oxyCODONE (Roxicodone) immediate release tablet 5 mg 5 mg, Oral, Every 6 hours PRN, Starting on Sun11/19/24 at 1124, Until Sun11/19/24 at 2026, Routine, Moderate/Severe Pain > or =3: CPOT; > or =4: FLACC, PAINAD, NPASS, NRS, Whittaker-Varela Faces; > or =5: DVPRS, NIPS Given 11/19/2024 5:16 PM EDT 5 mg oxyCODONE (Roxicodone) immediate release tablet 5 mg 5 mg, Oral, Every 4 hours PRN, Starting on Sun11/19/24 at 2026, Until Sun11/21/24 at 1244, Routine, Moderate/Severe Pain > or =3: CPOT; > or =4: FLACC, PAINAD, NPASS, NRS, Whittaker-Varela Faces; > or =5: DVPRS, NIPS Given 11/19/2024 8:31 PM EDT 5 mg [...] Barber RN)1846 (Given - Provider: Ro Barber RN)2341 (Given - Provider: Genny Ellis RN) 0533 (Given - Provider: Genny Ellis RN) ketorolac (Toradol) injection 15 mg (COMPLETED) [...] 0715, Routine 0848 (Given - Provider: Ailyn Armenta, INOCENCIA) potassium chloride CR (Klor-Con) ER tablet 40 mEq (COMPLETED)(Linked Group 1) 40 mEq, Oral, Once, 1 dose, On Sun11/21/24 at 0600, Routine 0533 (Given - Provider: Genny Ellis, INOCENCIA) sincalide (Kinevac) injection 2.3 mcg (COMPLETED) 2.3 [...] INOCENCIA) 0435 (Given - Provider: Genny Ellis, INCOENCIA)1655 (Given - Provider: Ro Barber, INOCENCIA) 0436 (Given - Provider: Genny Ellis, INOCENCIA)1735 (Canceled Entry - Provider: Ailyn Armenta, INOCENCIA) technetium Tc-99m mebrofenin (Choletec) radio-isotope injection 4 [...] Until Sun11/21/24 at 1244, Routine, nausea, vomiting 171 (Given - Provider: Socrates Lew, INOCENCIA) ondansetron ODT (Zofran-ODT) disintegrating tablet 4 mg 4 mg, Oral, Every 6 hours PRN, Starting on Sun11/17/24 at 1729, Until Sun11/21/24 at 1244, Routine, nausea, vomiting oxyCODONE (Roxicodone) immediate release tablet 10 mg 10 mg, Oral, Every 4 hours PRN, Starting on Sun11/19/24 at 202, Until Sun11/21/24 at 1244, Routine, severe pain 2030 (See Alternative - Provider: Genny Ellis, INOCENCIA) 1126 (Given - Provider: Ro Barber, RN) oxyCODONE (Roxicodone) immediate release tablet 5 mg (CANCELED)(Linked Group 3) 5 mg, Oral, Every 6 hours PRN, Starting on Sun11/19/24 at 1124, Until Sun11/19/24 at 2026, Routine, Moderate/Severe Pain > or =3: CPOT; > or =4: FLACC, PAINAD, NPASS, NRS, Whittaker-Varela Faces; > or =5: DVPRS, NIPS 171 (Given - Provider: Socrates Lew, INOCENCIA) oxyCODONE (Roxicodone) immediate release tablet 5 mg 5 mg, Oral, Every 4 hours PRN, Starting on Sun11/19/24 at 2026, Until Sun11/21/24 at 1244, Routine, Moderate/Severe Pain > or =3: CPOT; > or =4: FLACC, PAINAD, NPASS, NRS, Whittaker-Varela Faces; > or =5: DVPRS, NIPS 2030 (Given - Provider: Genny Ellis RN) [...] at 1124, Until Sun11/19/24 at 2026, Routine, Moderate/Severe Pain > or =3: CPOT; > or =4: FLACC, PAINAD, NPASS, NRS, Whittaker-Varela Faces; > or =5: DVPRS, NIPS Or oxyCODONE (Roxicodone) immediate release tablet 10 mg (CANCELED) 10 mg, Oral, Every 6 hours PRN, Starting on Sun11/19/24 at 1124, Until Sun11/19/24 at 2026, Routine, severe pain documented in this encounter Additional Health Concerns Assessment Noted Time A Body Mass Index follow-up plan has been documented for the patient 11/21/2024 8:58 AM EDT documented as of this encounter Care Teams [employer] Operator Relationship Specialty Start Date End Date Pcp, [facility] [address] [place] [address] PCP - General Family Medicine 06/16/23 documented as of this encounter
--- OUTSIDE RECORDS SUMMARY | 2024-12-04 09:00 | XMS_ITS | Encounter Summary ---
Author Organization [facility] Address [address] [place] [address] Care Team Providers Care Farm Rancher Name Role Phone Pcp, No Primary Care Provider Unavailabl e Reason for Referral * Imaging (Routine) - Pending Review Specialty Diagnoses / Procedures Referred By Contac t Referred To Contact Radiology Diagnoses Endometrial cancer Procedures CT Abdomen Pelvis w IV Contrast Karol Jane MD [address] [address] Phone: tel: fax: Referral ID Status Reason Start Date Expiration Date V isits Requested Visits Authorized [id number] Pending Review 12/04/2024 06/05/2026 1 1 * Imaging (Routine) - Pending Review Specialty Diagnoses / Procedures Referred By Contac t Referred To Contact Radiology Diagnoses Endometrial cancer Procedures CT Chest w IV Contrast Karol Jane MD [address] [address] Phone: tel: fax: Referral ID Status Reason Start Date Expiration Date V isits Requested Visits Authorized [id number] Pending Review 12/04/2024 06/05/2026 1 1 Reason for Visit * Reason Comments Consult Encounter Details Date Type Department Care Team (Late st Contact Info) Description 12/04/2024 10:00 AM EDT Office Visit [facility] [address] [place] [address] Karol Jane MD [address] [place] [address] Endometrial cancer (CMS/HCC) (Primary Dx) Social History [...] time in the past 12 m [facility], were you homeless or living in a skilled nursing (including now)? 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 Patient Case Coordinator Cancer Treatment History: 1. Presented to ED [...] is recommended. 4. Final path reviewed at [facility], Dr. Garcia - As you know [...] an appointment scheduled with Dr. Veloz in [place] on 12/09. Would like to have her [...] detailed below. Additionally, she denies history of [place], DVT, stroke. Employer: No address on file. [...] an appointment scheduled with Dr. Veloz in [place] on 12/09. He will initiate therapy. - [...] documentation. Encounter time 60 min [facility] [address] [facility] [address] [facility] [address] Dept Loc: [phone] [1] Past Medical History: Diagnosis Date Disease of salivary gland, unspecified Parotid mass Endometrial cancer (CMS/HCC) [2] Past Surgical History: Procedure Laterality Date HYSTERECTOMY N/A Hysterectomy from [facility] TUBAL LIGATION N/A Tubal ligation from [facility] [3] Family History Problem Relation Name [...] EST Appointment [facility] [address] [place] [address] 03/19/2025 1:45 PM EST Office Visit [facility] [address] [place] [address] Karol Jane MD [address] [place] [address] Scheduled Orders Name Type Priority Associated Diagnoses [...] documented as of this encounter Care Teams Farm Rancher Relationship Specialty Start Date End Date Pcp, Saloni [address] [place] [address] PCP - General Family Medicine 06/16/23 documented as of this encounter
--- OUTSIDE RECORDS SUMMARY | 2025-01-20 11:40 | XMS_ITS | Clinical Summary ---
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 [employer] Onc consultation Metastasis to liver 11/10/2024 Metastasis [...] EDT Office Visit [facility] Gynecology [address] [facility] [address] [place] [address] Karol Jane MD Endometrial cancer (CMS/HCC) (Primary Dx) 12/04/2024 Travel 11/29/2024 Travel 11/19/2024 Travel 11/18/2024 Travel 11/17/2024 1:26 PM EDT - 11/21/2024 10:43 AM EDT Hospital Encounter [facility] A Inpatient [facility] [address] [place] [address] Elisabeth Hernandez MD Miller, Rachel W, MD RUQ abdominal pain (Primary Dx); Endometrial cancer (CMS/HCC); Metastasis to liver (CMS/HCC); 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) Discharge Disposition: Home or Self Care 11/17/2024 Travel 11/14/2024 Travel 11/11/2024 Travel 11/09/2024 Travel 11/08/2024 11:13 AM EDT - 11/14/2024 8:50 PM EDT Hospital Encounter [facility] Inpatient [address] [place] [address] Blaire Fuchs MD Houck, Jessica L, DO Tucker, Brian K, Morelia Irene MD Dietrich, Charles S, MD Miller, Rachel W, MD Metastasis to liver (CMS/HCC) (Primary Dx); Calculus of gallbladder without cholecystitis without obstruction Discharge Disposition: Home or Self Care 11/08/2024 Orders Only External Location [address] [place] [address] Provider, External 11/08/2024 Orders Only External Location [address] [place] [address] Provider, External 11/08/2024 Travel from Last 3 [...] any time in the past 12 m [facility], were you homeless or living in a long term (including now)? 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) to steady your nerves or to get [...] EST Appointment [facility] Radiology [address] [place] [address] 03/19/2025 1:45 PM EST Office Visit [facility] Gynecology [address] [address] Karol Jane MD [address] Jar[address] Sara [address] [place] [address] Health Maintenance Due Date Last Done Comments [facility]-Infant/Child/Adol SDOH Screenings 1978 [id number] Vaccine (#1) 1983 [facility]-DTaP,Tdap,and Td Vaccine s [...] this topic Medical Devices Implanted Type Area Wing Coverer Device Identifier Shelf Expiration Date Model / Serial / Lot Vip Vascular Closure Device 6 Fr - [id number] Implanted:Qty: 1 on 11/18/2024 by [facility] [id number] 07/29/2025 [id number] / / [id number] Procedures Procedure Name Priority Date/Time Associated Diagnosis [...] BIOPSY Routine 11/18/2024 2:55 PM EDT CRISTOBAL MS TUMOR SEEK HYBRID + IHCS AND OTHER [...] LAB HEMATOLOGY METHOD 11/21/2024 3:53 AM EDT [facility] Blood Venous blood specimen / Unknown Venipuncture / Unknown 11/21/2024 3:19 AM EDT 11/21/2024 3:27 AM EDT Karol Jane MD LAB BLOOD ORDERABLES Final Re sult [facility] [address] [place] [address] * (ABNORMAL) CBC W/O Differential (11/21/2024 3:19 AM EDT) Only the most recent of10 resultswithin the time period is included. WBC Count 12.55(H) 3.70 - 10.30 10*3/uL LAB HEMATOLOGY METHOD 11/21/2024 3:35 AM EDT [facility] RBC Count 2.70(L) 3.90 - 5.20 10*6/uL LAB HEMATOLOGY METHOD 11/21/2024 3:35 AM EDT [facility] HGB 7.3(L) 11.2 - 15.7 g/dL LAB HEMATOLOGY METHOD 11/21/2024 3:35 AM EDT [facility] HCT 22.1(L) 34.0 - 45.0 % LAB HEMATOLOGY METHOD 11/21/2024 3:35 AM EDT [facility] Platelet Count 236 155 - 369 10*3/uL LAB HEMATOLOGY METHOD 11/21/2024 3:35 AM EDT [facility] MCV 82 79 - 98 fL LAB HEMATOLOGY METHOD 11/21/2024 3:35 AM EDT [facility] MCH 27.0 26.0 - 32.0 pg LAB HEMATOLOGY METHOD 11/21/2024 3:35 AM EDT [facility] MCHC 33.0 30.7 - 35.5 g/dL LAB HEMATOLOGY METHOD 11/21/2024 3:35 AM EDT [facility] RDW 16.0(H) 11.5 - 14.5 % LAB HEMATOLOGY METHOD 11/21/2024 3:35 AM EDT [facility] MPV 9.7 8.8 - 12.5 fL LAB HEMATOLOGY METHOD 11/21/2024 3:35 AM EDT [facility] nRBC 0.0 <=0.0 per 100 WBCs LAB HEMATOLOGY METHOD 11/21/2024 3:35 AM EDT [facility] Blood Venous blood specimen / Unknown Venipuncture / Unknown 11/21/2024 3:19 AM EDT 11/21/2024 3:28 AM EDT Karol Jane MD LAB BLOOD ORDERABLES Final Re sult Performing Organization Address City/[facility] Co de Phone Number [facility] [address] [place] [address] * Phosphorus, Plasma (11/21/2024 3:19 AM EDT) Only the most recent of7 resultswithin the time period is included. Phosphorus, Plasma 3.1 2.5 - 4.5 mg/dL 11/21/2024 5:27 AM EDT [facility] Blood Venous blood specimen / Unknown Venipuncture / Unknown 11/21/2024 3:19 AM EDT 11/21/2024 3:27 AM EDT us Karol Jane MD LAB BLOOD ORDERABLES Final Re sult Performing Organization Address City/[facility] Co de Phone Number [facility] [address] [place] [address] * (ABNORMAL) Magnesium (11/21/2024 3:19 AM EDT) Only the most recent of10 resultswithin the time period is included. Magnesium, Plasma 1.6(L) 1.9 - 2.4 mg/dL 11/21/2024 3:58 AM EDT [facility] Blood Venous blood specimen / Unknown Venipuncture / Unknown 11/21/2024 3:19 AM EDT 11/21/2024 3:27 AM EDT us Karol Jane MD LAB BLOOD ORDERABLES Final Re sult [facility] [address] [place] [address] * (ABNORMAL) Comprehensive metabolic panel (11/21/2024 3:19 AM EDT) Only the most recent of9 resultswithin the time period is included. Glucose, Plasma 116(H) 74 - 99 mg/dL 11/21/2024 3:58 AM EDT [facility] BUN, Plasma 11 7 - 21 mg/dL 11/21/2024 3:58 AM EDT [facility] Creatinine, Plasma 0.77 0.60 - 1.10 mg/dL 11/21/2024 3:58 AM EDT [facility] BUN/Creatinine Ratio 14 11/21/2024 3:58 AM EDT [facility] Sodium, Plasma 137 136 - 145 mmol/L 11/21/2024 3:58 AM EDT [facility] Potassium, Plasma 3.4(L) 3.6 - 4.9 mmol/L 11/21/2024 3:58 AM EDT [facility] Chloride, Plasma 103 97 - 107 mmol/L 11/21/2024 3:58 AM EDT [facility] CO2, Plasma 21(L) 22 - 29 mmol/L 11/21/2024 3:58 AM EDT [facility] Anion Gap 13 6 - 16 mmol/L 11/21/2024 3:58 AM EDT [facility] Total Calcium, Plasma 7.9(L) 8.9 - 10.2 mg/dL 11/21/2024 3:58 AM EDT [facility] Total Protein 5.7(L) 6.3 - 7.9 g/dL 11/21/2024 3:58 AM EDT [facility] Albumin, Plasma 2.4(L) 3.5 - 5.2 g/dL 11/21/2024 3:58 AM EDT [facility] AST, Plasma 188(H) 10 - 35 U/L 11/21/2024 3:58 AM EDT [facility] ALT, Plasma 167(H) 10 - 35 U/L 11/21/2024 3:58 AM EDT [facility] Alkaline Phosphatase, Plasma 505(H) 35 - 104 U/L 11/21/2024 3:58 AM EDT [facility] Total Bilirubin, Plasma 1.0 0.2 - 1.1 mg/dL 11/21/2024 3:58 AM EDT [facility] eGFRcr 96.5 mL/min/1.7 3m*2 11/21/2024 3:58 AM EDT [facility] Comment:Reported eGFRcr in m L/min/1.73m2 is based the CKD-EPI 2020 equation that does not use a race coefficient. Blood Venous blood specimen / Unknown Venipuncture / Unknown 11/21/2024 3:19 AM EDT 11/21/2024 3:27 AM EDT Karol Jane MD LAB BLOOD ORDERABLES Final Re sult Performing Organization Address City/[facility] Co de Phone Number [facility] [address] [place] [address] * Prepare Leukocyte Reduced RBC: 1 Units (11/20/2024 5:27 AM EDT) Only the most recent of3 resultswithin the time period is included. 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 At 58 [...] PM EDT) Case Report Surgical Pathology Case: [id number] Authorizing Provider: Franko Nava MD Collected: 11/18/2024 3507 Ordering Location: [facility] Emergency Department Received: 11/18/2024 1620 Pathologist: Geovanny Gomes DO Specimen: Liver 5:03 PM EDT [facility] Final Diagnosis LIVER, BIOPSY: - POSITIVE FOR METASTATIC CARCINOMA (SEE COMMENT). 5:03 PM EDT [facility] at 1703 EDT Comment The [...] high grade endometrioid adenocarcinoma. 5:03 PM EDT [facility] Clinical Information mets to the liver 5:03 PM EDT [facility] Special and Immunohistochemical Stains IHC: A1-2 CK7: Positive in tumor cells. A1-3 PAX8: Positive in tumor cells. A1-4 ER Non-Quantitative: Positive in tumor cells. All controls show appropriate reactivity. All immunohistochemist ry, in situ hybridization, and histochemical tests were developed by and are performed at the [facility], [address] [place] [address]. All tests reported here, except those addressing [...] negativity on decalcified specimens. 5:03 PM EDT [facility] Gross Description A. LIVER Received in formalin labeled l iver , are multiple red-rosales soft tissue cores measuring from 0.3 cm to 1.5 cm in length and up to 0.1 cm in diameter. Entirely submitted in cassette A1. Cold Time: 0 Ro Mcallister 5:03 PM EDT [facility] Intradepartmental Consultation with Agreement Dr. Fuentes 5:03 PM EDT [facility] Note: A resident was involved in the service. I attest I examined the relevant preparations for the specimens and confirmed the diagnosis or interpretation. 5:03 PM EDT [facility] Tissue Liver structure / Unknown Non-blood Collection / Unknown 11/18/2024 3:57 PM EDT 11/18/2024 4:20 PM EDT us Franko Nava MD LAB PATHOLOGY ORDERAB[place] [address] * IR Embolization Tumor or Ischemia or [...] concern for intratumoral hemorrhage. Patient presents to [facility] for bland embolization of tumor. Additionally, rebiopsy of liver mass is planned due to possible progression. TECHNIQUE: Wastewater Treatment Plant Supervisor: Franko Nava MD Secondary Customer Marketing Assistant: Luis Miguel Estes M.D. Rad Dose: [phone] [...] 5 F vascular sheath. Using a 5 Romanian contra 2 catheter, the celiac axis was [...] concern for intratumoral hemorrhage. Patient presents to [facility] embolization of tumor. Additionally, rebiopsy of liver mass isplanned due to possible progression. TECHNIQUE: Wastewater Treatment Plant Supervisor: Franko Nava MD Secondary Customer Marketing Assistant: Luis Miguel Estes M.D. Rad Dose: [phone] [...] 5 F vascular sheath. Using a 5 Romanian contra 2catheter, the celiac axis was catheterized. [...] concern for intratumoral hemorrhage. Patient presents to [facility] for bland embolization of tumor. Additionally, rebiopsy of liver mass is planned due to possible progression. TECHNIQUE: Wastewater Treatment Plant Supervisor: Franko Nava MD Secondary Customer Marketing Assistant: Luis Miguel Estes M.D. Rad Dose: [phone] [...] 5 F vascular sheath. Using a 5 Romanian contra 2 catheter, the celiac axis was [...] concern for intratumoral hemorrhage. Patient presents to [facility] embolization of tumor. Additionally, rebiopsy of liver mass isplanned due to possible progression. TECHNIQUE: Wastewater Treatment Plant Supervisor: Franko Nava MD Secondary Customer Marketing Assistant: Luis Miguel Estes M.D. Rad Dose: [phone] [...] 5 F vascular sheath. Using a 5 Romanian contra 2catheter, the celiac axis was catheterized. [...] PROCEDURES Final Resu lt * (ABNORMAL) [facility] MS Cancer Seek Hybrid??? + IHCs and Other Tests by Tumor Type (11/18/2024 2:55 PM EDT) CARIS PD-L1 (22C3) Negative 2024 1:58 PM EDT [facility] [employer] CARIS Mismatch Repair Status Proficient (Intact) 11/30/2024 1:58 PM EDT [employer] CARIS Genomic Loss of Heterozygosity - Exome Low 1% 11/30/2024 1:58 PM EDT CARIS [employer] CARIS Microsatellite Instability - Exome Stable 11/30/2024 1:58 PM EDT [employer] CARIS Tumor Mutational Pearsall - Exome Low 1 per Mb 11/30/2024 1:58 PM EDT [facility] [employer] CARIS Estrogen Receptor Positive 11/30/2024 1:58 PM EDT [employer] CARIS Her2/Shoaib Negative 11/30/2024 1:58 PM EDT [employer] CARIS Progesterone Receptor Negative 11/30/2024 1:58 PM EDT [employer] CARIS MLH1 Intact nuclear expression 11/30/2024 1:58 PM EDT [facility] [employer] CARIS MSH2 Intact nuclear expression 11/30/2024 1:58 PM EDT [facility] CRISTOBAL MSH6 Intact nuclear expression 11/30/2024 1:58 PM EDT [employer] CRISTOBAL PMS2 Intact nuclear expression 11/30/2024 1:58 PM EDT [employer] CRISTOBAL HLA-A - Exome -,A*02:01 11/30/2024 1:58 PM EDT [facility] CRISTOBAL HLA-B - Exome B*40:01,B*44: 02 11/30/2024 1:58 PM EDT [facility] CRISTOBAL HLA-C - Exome C*03:04,C*05: 01 11/30/2024 1:58 PM EDT [facility] Tissue Non-blood Collection / Unknown 11/18/2024 2:55 PM EDT 11/21/2024 1:03 PM EDT Narrative This result has genomic variants that were not included in this document. us Karol Jane MD LAB MOL DX NO SOURCE Final Re sult [facility] [address] [address], [place] [phone] * Fine needle aspiration - Core Biopsy (11/18/2024 2:55 PM EDT) Case Report Cytology Case: [id number] Authorizing Provider: Franko Nava MD Collected: 11/18/2024 1455 Ordering Location: [facility] A Emergency Department Received: 11/18/2024 1520 Specimen: Liver, LIVER, CT GUIDED CORE BIOPSY 3:41 PM EDT [facility] Final Diagnosis A. LIVER, CT GUIDED CORE BIOPSY: - POSITIVE FOR MALIGNANCY, METASTATIC CARCINOMA CONSISTENT WITH PREVIOUSLY DIAGNOSED ENDOMETRIAL CARCINOMA, SEE COMMENT 3:41 PM EDT [facility] at 1541 EDT Comment History [...] not identical to the previous surgical specimen ([id number]), the staining pattern noted below is identical to the previous tumor. 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 Material is present in the cell block for ancillary testing as clinically indicated. 3:41 PM EDT [facility] Special and Immunohistochemical Stains IHC: A1-1 CK-AE1/AE3 Positive A1-2 PAX8 Positive A1-3 ER Non-Quantitative Positive, moderate intensity in the majority of the cells A1-4 ND Non-Quantitative Rare positive cells, weak intensity A1-5 Androgen Receptor Positive, variable All controls show appropriate reactivity. All immunohistochemis try, in situ hybridization, and histochemical tests were developed by and are performed at the [facility], [address] [place] [address]. All tests reported here, except those addressing [...] on decalcified specimens. 5 3:41 PM EDT [facility] Intradepartmental Consultation with Agreement Dr. Fuentes 3:41 PM EDT [facility] Immediate Evaluation Core biopsy performed by: Dr. Nava Number of sticks: 5 This service has been rendered in part by a resident. A pathologist has personally reviewed the slides/tissue and has rendered and is responsible for diagnosis for the diagnosis that appears on the report. 5 3:41 PM EDT [facility] Clinical History metastesis to liver 5 3:41 PM EDT [facility] Procedure Type US 5 3:41 PM EDT [facility] Size/Description of Lesion liver tumor 5 3:41 PM EDT [facility] Cancer History Yes 5 3:41 PM EDT [facility] Gross Description A. LIVER, CT [...] Cold Time: 13m 5 3:41 PM EDT [facility] Note: A resident was involved in the service. I attest I examined the relevant preparations for the specimens and confirmed the diagnosis or interpretation. 5 3:41 PM EDT [facility] Clinical Information No Dx found. 5 3:41 PM EDT [facility] Fine Needle Aspirate Liver structure / Unknown Non-blood Collection / Unknown 11/18/2024 2:55 PM EDT 11/18/2024 3:20 PM EDT us Franko Nava MD LAB CYTOLOGY ORDERABLES Sonali barahona Result [facility] [address] [place] [address] * Type and screen (11/18/2024 9:33 AM [...] ORDERABLE S Final Result BLOOD BANK [address] [place] [address], * PERIPHERAL IV (SMARTFORM LINK) (11/18/2024 7:57 [...] LAB HEMATOLOGY METHOD 11/18/2024 6:06 AM EDT [facility] HCT 21.3(L) 34.0 - 45.0 % LAB HEMATOLOGY METHOD 11/18/2024 6:06 AM EDT [facility] Blood Venous blood specimen / Unknown Venipuncture / Unknown 11/18/2024 5:54 AM EDT 11/18/2024 6:04 AM EDT Karol Jane MD LAB BLOOD ORDERABLES Final Re sult [facility] [address] [place] [address] * [place] Abdomen RUQ (11/17/2024 2:00 PM [...] - 35 sec 11/17/2024 1:44 PM EDT [facility] Blood Venous blood specimen / Unknown Venipuncture / Unknown 11/17/2024 1:25 PM EDT 11/17/2024 1:27 PM EDT Kareem Guidry MD LAB BLOOD ORDERABLES Fin al Result [facility] [address] [place] [address] * (ABNORMAL) PT-INR (11/17/2024 1:25 PM EDT) Only the most recent of3 resultswithin the time period is included. Pathologist [facility] Prothrombin Time 15.4(H) 12.0 - 14.3 sec 11/17/2024 1:43 PM EDT [facility] INR 1.2(H) 0.9 - 1.1 11/17/2024 1:43 PM EDT [facility] Blood Venous blood specimen / Unknown Venipuncture / Unknown 11/17/2024 1:25 PM EDT 11/17/2024 1:27 PM EDT Narrative [facility] - 11/17/2024 1:43 PM EDT OPTIMAL INR RANGES FOR PATIENT ON ORAL ANTICOAGULANT THERAPY Prevention of venous thromboembolism INR 2.0 to 3.0 In patients with heart disease: Atrial fibrillation INR 2.0 to 3.0 Valvular heart disease INR 2.0 to 3.0 Tissue heart valves INR 2.0 to 3.0 Mechanical prosthetic valves INR 2.5 to 3.5 Prevention of recurrent MS INR 2.5 to 3.5 us Kaerem Guidry MD LAB BLOOD ORDERABLES [facility] al Result [facility] [address] [place] [address] * (ABNORMAL) CBC w/diff (11/17/2024 1:25 PM EDT) Only the most recent of3 resultswithin the time period is included. Pathologist [facility] WBC Count 12.34(H) 3.70 - 10.30 10*3/uL LAB HEMATOLOGY METHOD 11/17/2024 1:30 PM EDT [facility] RBC Count 3.19(L) 3.90 - 5.20 10*6/uL LAB HEMATOLOGY METHOD 11/17/2024 1:30 PM EDT [facility] HGB 8.4(L) 11.2 - 15.7 g/dL LAB HEMATOLOGY METHOD 11/17/2024 1:30 PM EDT [facility] HCT 27.1(L) 34.0 - 45.0 % LAB HEMATOLOGY METHOD 11/17/2024 1:30 PM EDT [facility] Platelet Count 308 155 - 369 10*3/uL LAB HEMATOLOGY METHOD 11/17/2024 1:30 PM EDT [facility] MCV 85 79 - 98 fL LAB HEMATOLOGY METHOD 11/17/2024 1:30 PM EDT [facility] MCH 26.3 26.0 - 32.0 pg LAB HEMATOLOGY METHOD 11/17/2024 1:30 PM EDT [facility] MCHC 31.0 30.7 - 35.5 g/dL LAB HEMATOLOGY METHOD 11/17/2024 1:30 PM EDT [facility] RDW 16.7(H) 11.5 - 14.5 % LAB HEMATOLOGY METHOD 11/17/2024 1:30 PM EDT [facility] MPV 9.6 8.8 - 12.5 fL LAB HEMATOLOGY METHOD 11/17/2024 1:30 PM EDT [facility] nRBC 0.0 <=0.0 per 100 WBCs LAB HEMATOLOGY METHOD 11/17/2024 1:30 PM EDT [facility] Differential Type Automated LAB HEMATOLOGY METHOD 11/17/2024 1:30 PM EDT [facility] Neutrophils % 80 % LAB HEMATOLOGY METHOD 11/17/2024 1:30 PM EDT [facility] Lymphocytes % 11 % LAB HEMATOLOGY METHOD 11/17/2024 1:30 PM EDT [facility] Monocytes % 5 % LAB HEMATOLOGY METHOD 11/17/2024 1:30 PM EDT [facility] Eosinophils % 1 % LAB HEMATOLOGY METHOD 11/17/2024 1:30 PM EDT [facility] Basophils % 1 % LAB HEMATOLOGY METHOD 11/17/2024 1:30 PM EDT [facility] Immature Granulocytes % 2 % LAB HEMATOLOGY METHOD 11/17/2024 1:30 PM EDT [facility] Neutrophils Absolute 10.04(H) 1.60 - 6.10 10*3/uL LAB HEMATOLOGY METHOD 11/17/2024 1:30 PM EDT [facility] Lymphocytes Absolute 1.31 1.20 - 3.90 10*3/uL LAB HEMATOLOGY METHOD 11/17/2024 1:30 PM EDT [facility] Monocytes Absolute 0.62 0.30 - 0.90 10*3/uL LAB HEMATOLOGY METHOD 11/17/2024 1:30 PM EDT [facility] Eosinophils Absolute 0.08 0.00 - 0.50 10*3/uL LAB HEMATOLOGY METHOD 11/17/2024 1:30 PM EDT [facility] Basophils Absolute 0.06 0.00 - 0.10 10*3/uL LAB HEMATOLOGY METHOD 11/17/2024 1:30 PM EDT [facility] Immature Granulocytes Absolute 0.23(H) 0.00 - 0.06 10*3/uL LAB HEMATOLOGY METHOD 11/17/2024 1:30 PM EDT [facility] Blood Venous blood specimen / Unknown Venipuncture / Unknown 11/17/2024 1:25 PM EDT 11/17/2024 1:27 PM EDT Narrative [facility] - 11/17/2024 1:30 PM EDT Therapeutic decision making should be based on absolute values, rather than percentages. Kareem Guidry MD LAB BLOOD ORDERABLES Fin al Result Performing Organization Address City/[facility] Co de Phone Number [facility] [address] [place] [address] * (ABNORMAL) Lipase (11/17/2024 1:25 PM EDT) Lipase, Plasma 14(L) 19 - 63 U/L 11/17/2024 1:50 PM EDT [facility] Blood Venous blood specimen / Unknown Venipuncture / Unknown 11/17/2024 1:25 PM EDT 11/17/2024 1:27 PM EDT Kareem Guidry MD LAB BLOOD ORDERABLES Fin al Result Performing Organization Address City/[facility]/ZIP Co de Phone Number [facility] [address] [place] [address] * (ABNORMAL) Ionized calcium, whole blood (11/14/2024 1:07 AM EDT) Only the most recent of3 resultswithin the time period is included. Ionized Calcium, Whole Blood 4.4(L) 4.6 - 5.1 mg/dL LAB HEMATOLOGY METHOD 11/14/2024 1:58 AM EDT [facility] Blood Venous blood specimen / Unknown Venipuncture / Unknown 11/14/2024 1:07 AM EDT 11/14/2024 1:50 AM EDT us Korey Rolle MD LAB BLOOD ORDERABLES Final Result Performing Organization Address [facility] Co de Phone Number [facility] [address] [place] [address] * (ABNORMAL) Fibrinogen (11/14/2024 1:07 AM EDT) Pathologist [facility] Fibrinogen, Quantitative (Clottable) 512(H) 208 - 459 mg/dL LAB COAGULATION METHOD 11/14/2024 2:09 AM EDT [facility] Blood Venous blood specimen / Unknown Venipuncture / Unknown 11/14/2024 1:07 AM EDT 11/14/2024 1:48 AM EDT Karol Jane MD LAB BLOOD ORDERABLES Final Re sult Performing Organization Address [facility] Co de Phone Number [facility] [address] [place] [address] * (ABNORMAL) Basic metabolic panel (11/14/2024 1:07 AM EDT) Only the most recent of5 resultswithin the time period is included. [facility] Glucose, Plasma 85 74 - 99 mg/dL 11/14/2024 2:18 AM EDT [facility] BUN, Plasma 12 7 - 21 mg/dL 11/14/2024 2:18 AM EDT [facility] Creatinine, Plasma 0.99 0.60 - 1.10 mg/dL 11/14/2024 2:18 AM EDT [facility] BUN/Creatinine Ratio 12 11/14/2024 2:18 AM EDT [facility] Sodium, Plasma 142 136 - 145 mmol/L 11/14/2024 2:18 AM EDT [facility] Potassium, Plasma 3.7 3.6 - 4.9 mmol/L 11/14/2024 2:18 AM EDT [facility] Chloride, Plasma 108(H) 97 - 107 mmol/L 11/14/2024 2:18 AM EDT [facility] CO2, Plasma 21(L) 22 - 29 mmol/L 11/14/2024 2:18 AM EDT [facility] Anion Gap 13 6 - 16 mmol/L 11/14/2024 2:18 AM EDT [facility] Total Calcium, Plasma 8.1(L) 8.9 - 10.2 mg/dL 11/14/2024 2:18 AM EDT [facility] eGFRcr 71.4 mL/min/1.7 3m*2 11/14/2024 2:18 AM EDT [facility] Comment:Reported eGFRcr in m L/min/1.73m2 is based the CKD-EPI 2020 equation that does not use a race coefficient. Blood Venous blood specimen / Unknown Venipuncture / Unknown 11/14/2024 1:07 AM EDT 11/14/2024 1:49 AM EDT Korey Rolle MD LAB BLOOD ORDERABLES Final Result [facility] [address] [place] [address] * Comprehensive GI Panel by PCR (11/11/2024 8:01 PM EDT) Campylobacter PCR Result Not Detected Not Detected 11/12/2024 5:52 AM EDT [facility] Plesiomonas shigelloides PCR Result Not Detected Not Detected 11/12/2024 5:52 AM EDT [facility] Salmonella PCR Result Not Detected Not Detected 11/12/2024 5:52 AM EDT [facility] Vibrio species PCR Result Not Detected Not Detected 11/12/2024 5:52 AM EDT [facility] Vibrio cholerae PCR Result Not Detected Not Detected 11/12/2024 5:52 AM EDT [facility] Yersinia enterocolitica PCR Result Not Detected Not Detected 11/12/2024 5:52 AM EDT [facility] Enteroaggregative E. coli (EAEC) PCR Result Not Detected Not Detected 11/12/2024 5:52 AM EDT [facility] Enteropathogenic E. coli (EPEC) PCR Result Not Detected Not Detected 11/12/2024 5:52 AM EDT [facility] Enterotoxigenic E. coli (ETEC) lt/st PCR Result Not Detected Not Detected 11/12/2024 5:52 AM EDT [facility] Shiga-like Toxin-Producing E.coli (STEC) stx1/stx2 PCR Resu Not Detected Not Detected 11/12/2024 5:52 AM EDT [facility] E coli 0157 PCR Result Not Detected Not Detected 11/12/2024 5:52 AM EDT [facility] Shigella/Enteroinvas christal E. coli (EIEC) PCR Result Not Detected Not Detected 11/12/2024 5:52 AM EDT [facility] Cryptosporidium PCR Result Not Detected Not Detected 11/12/2024 5:52 AM EDT [facility] Cyclospora cayetanensis PCR Result Not Detected Not Detected 11/12/2024 5:52 AM EDT [facility] Entamoeba histolytica PCR Result Not Detected Not Detected 11/12/2024 5:52 AM EDT [facility] Giardia duodenalis (aka Giardia lamblia) PCR Result Not Detected Not Detected 11/12/2024 5:52 AM EDT [facility] Adenovirus F 40/41 PCR Result Not Detected Not Detected 11/12/2024 5:52 AM EDT [facility] Astrovirus PCR Result Not Detected Not Detected 11/12/2024 5:52 AM EDT [facility] Norovirus GI/GII PCR Result Not Detected Not Detected 11/12/2024 5:52 AM EDT [facility] Rotavirus A PCR Result Not Detected Not Detected 11/12/2024 5:52 AM EDT [facility] Sapovirus PCR Result Not Detected Not Detected 11/12/2024 5:52 AM EDT [facility] Stool Rectum structure / Unknown Non-blood Collection / Unknown 11/11/2024 8:01 PM EDT 11/11/2024 8:13 PM EDT [facility] - 11/12/2024 5:52 AM EDT [...] GENERAL ORDERABLES Final Result Performing Organization Address [facility] Co de Phone Number [address] [address] * Clostridiodes (Clostridium) difficile PCR (11/11/2024 8:01 PM EDT) C difficile PCR toxin B gene DNA Result Not Detected Not Detected 11/11/2024 9:22 PM EDT [facility] Stool Rectum structure / Unknown Non-blood Collection / Unknown 11/11/2024 8:01 PM EDT 11/11/2024 8:13 PM EDT Narrative [facility] - 11/11/2024 9:22 PM [...] GENERAL ORDERABLES Final Result Performing Organization Address [facility] Co de Phone Number [address] [address] * CT Chest wo IV Contrast (11/11/2024 [...] Urine 76 mmol/L 11/11/2024 4:13 AM EDT [facility] Urine Urine specimen obtained by clean catch procedure / Unknown Non-blood Collection / Unknown 11/11/2024 3:34 AM EDT 11/11/2024 3:43 AM EDT Morelia Galvez MD LAB URINE ORDERABLES Final Result Performing Organization Address [facility]/ZIP Co de Phone Number [facility] [address] [place] [address] * Creatinine, urine, random (11/11/2024 3:34 AM EDT) Creatinine, Urine 105 mg/dL 11/11/2024 4:13 AM EDT [facility] Urine Urine specimen obtained by clean catch procedure / Unknown Non-blood Collection / Unknown 11/11/2024 3:34 AM EDT 11/11/2024 3:43 AM EDT Morelia Galvez MD LAB URINE ORDERABLES Final Result [facility] [address] [place] [address] * CT Abdomen Pelvis w IV Contrast [...] (series 3, image 74 and series 5, [id number]) , previously measured 9.0 x 6.1 x [...] - 99 mg/dL 11/09/2024 7:13 AM EDT [facility] Comment:Accuracy of a glucos e result [...] for testing. Comment 11/09/2024 7:13 AM EDT [facility] Customer Marketing Assistant ID Justine Singh 11/09/2024 7:13 AM EDT [facility] Device ID [id number] 11/09/2024 7:13 AM EDT [facility] Specimen Type POC Capillary 11/09/2024 7:13 AM EDT [facility] Blood Capillary blood specimen / Unknown 11/09/2024 7:12 AM EDT 11/09/2024 7:13 AM EDT us Morelia Galvez MD LAB POINT OF CARE TEST DOCKED DEVICE UNSOLICITED RESULTS Final Result Performing Organization Address [facility] de Phone Number [facility] [address] [place] [address] * (ABNORMAL) Troponin T, High Sensitivity, 2 Hour, Plasma (11/08/2024 3:17 PM EDT) Troponin T, High Sensitivity, 2 Hour 17(H) <14 ng/L 11/08/2024 3:51 PM EDT [facility] Troponin Delta 3 <10 ng/L 11/08/2024 3:51 PM EDT [facility] Troponin Delta Interpretation Not Significant 11/08/2024 3:51 PM EDT [facility] Comment:Not Significant. No acute change in troponin observed between the baseline and 2 hour samples. Blood Venous blood specimen / Unknown Venipuncture / Unknown 11/08/2024 3:17 PM EDT 11/08/2024 3:24 PM EDT us Blaire Fuchs MD LAB BLOOD ORDERABLES Final R esult Performing Organization Address [facility] Co de Phone Number [facility] [address] [place] [address] * Heparin level (11/08/2024 1:57 PM EDT) Anti Xa Level Unfractionated Heparin <0.11 <1.00 IU/mL LAB COAGULATION METHOD 11/08/2024 2:26 PM EDT [facility] Blood Venous blood specimen / Unknown Venipuncture / Unknown 11/08/2024 1:57 PM EDT 11/08/2024 2:07 PM EDT Narrative [facility] - 11/08/2024 2:26 PM EDT Therapeutic Range: UFH Full Dose and ACS/MS protocols*: 0.30 - 0.70 IU/mL UFH Low Dose protocol*: 0.25 - 0.50 IU/mL UFH prophylaxis: Not established us Blaire Fuchs MD LAB BLOOD ORDERABLES Final R esult [facility] [address] [place] [address] * US Abdomen Focused Region GB, Bile [...] 1/2 Differentiation (11/08/2024 1:12 PM EDT) Pathologist [facility] HIV 1 & 2 Antibody/Antigen Screen Non Reactive Non Reactive 11/08/2024 2:06 PM EDT [facility] Comment:Screening for HIV 1 & 2 antibodies, and P24 antigen is NONREACTIVE. No confirmatory testing is required. Blood Venous blood specimen / Unknown Venipuncture / Unknown 11/08/2024 1:12 PM EDT 11/08/2024 1:24 PM EDT us Blaire Fuchs MD LAB BLOOD ORDERABLES Final R esult Performing Organization Address [facility]/ZIP Co de Phone Number [facility] [address] [place] [address] * (ABNORMAL) Troponin now and 120 min (11/08/2024 1:12 PM EDT) [facility] Troponin T, High Sensitivity, 0 Hour 14(H) <14 ng/L 11/08/2024 1:55 PM EDT [facility] Blood Venous blood specimen / Unknown Venipuncture / Unknown 11/08/2024 1:12 PM EDT 11/08/2024 1:25 PM EDT us Blaire Fuchs MD LAB BLOOD ORDERABLES Final R esult [facility] [address] [place] [address] * (ABNORMAL) BNP (11/08/2024 1:12 PM EDT) [facility] N-Terminal, PROBNP, Plasma 523(H) 0 - 449 pg/mL 11/08/2024 1:55 PM EDT [facility] Blood Venous blood specimen / Unknown Venipuncture / Unknown 11/08/2024 1:12 PM EDT 11/08/2024 1:25 PM EDT us Blaire Fuchs MD LAB BLOOD ORDERABLES Final R esult [facility] [address] [place] [address] * EKG now - STAT (adult) (11/08/2024 11:25 AM EDT) Pathologist [facility] EKG DIAGNOSIS CLASS Borderline Abnormal MUSE ECG Ventricular Rate 94 BPM MUSE ECG Atrial Rate 94 BPM MUSE ECG ND Interval 128 ms MUSE ECG QRSD Interval 100 ms MUSE ECG QT Interval 364 ms MUSE ECG QTC Interval 455 ms MUSE ECG P [facility] 65 degrees MUSE ECG R [facility] 11 degrees MUSE ECG T Wave [facility] 8 degrees MUSE ECG Diagnosis Normal sinus rhythm MUSE ECG Diagnosis RSR' V1, is likely a normal variant MUSE ECG Diagnosis Borderline ECG MUSE ECG Diagnosis MUSE ECG Diagnosis Confirmed by Yovani Liu ([id number]) on 11/09/2024 9:56:32 AM MUSE ECG 11/08/2024 11:2 5 AM EDT 11/09/2024 9:56 AM EDT us Blaire Fuchs MD ECG ORDERABLES Final Result Performing Organization Address [facility]/ZIP Co de Phone Number MUSE ECG * US OUTSIDE IMAGES (11/08/2024 7:00 AM EDT) Only the most recent of2 resultswithin the time period is included. Anatomical Region Laterality Modality Ultrasound 11/08/2024 7:00 AM EDT us External Provider IMG US PROCEDURES Final Result * [place] Hepatitis C Antibody (12/16/2017 9:07 PM EDT) Pathologist [facility] [place] Hepatitis C Ab BEING REPEATED TO CONFIRM [...] updated to appropriate status: Yes Care Teams Principal Account Clerk Relationship Specialty Start Date End Date Pcp, No [address] [place] [address] PCP - General Family Medicine 06/16/23
--- OUTSIDE RECORDS SUMMARY | 2025-01-20 11:40 | XMS_ITS ---
Author Organization [facility] Address [address] [place] [address] Care Team Providers Care Bridge Inspector Name Role Phone Pcp, No Primary [...] that would be needed Recommend admission to motor polarizer onc vs medicine EGS will continue to follow Endometrial cancer 11/10/2024 Assessment & Plan (11/11/2024 11:30 AM EDT): [facility] Onc consultation Assessment & Plan (11/10/2024 1:52 PM EDT): [facility] Exped[facility] Onc consultation Metastasis to liver 11/10/2024 Metastasis [...]
--- OUTSIDE RECORDS SUMMARY | 2025-01-20 11:40 | XMS_ITS | Encounter Summary ---
Author Organization Address [address] [place] [address] Care Team Providers Care Senior Applications Architect Name Role Phone Pcp, No Primary Care [...] any time in the past 12 m [facility], were you homeless or living in a usp (including now)? No 11/18/2024 [facility] Utilities Answer Date Recorded In the past 12 months has e [employer], gas, oil, or water [employer] threatened to shut off services in your [...] drink first t nicolas in the morning (EYE-ETCHER HAND) to steady your nerves or to get [...] EST Appointment [facility] [address] [place] [id number] 03/19/2025 1:45 PM EST Office Visit [facility] [address] [place] [id number] Karol Jane MD [address] [facility] [address] [place] [address] documented as of this encounter Visit Diagnoses Not on filedocumented in this encounter Additional Health Concerns Assessment Noted Time A fall risk assessment has been complete d for the patient 12/04/2024 10:03 AM EDT A Body Mass Index follow-up plan has been documented for the patient 11/21/2024 8:58 AM EDT documented as of this encounter Care Teams Senior Applications Architect Relationship Specialty Start Date End Date Pcp, [place] [address] [place] [address] PCP - General Family Medicine 06/16/23 documented as of this encounter
--- OUTSIDE RECORDS SUMMARY | 2025-01-20 11:40 | XMS_ITS | Encounter Summary ---
Author Organization [facility] Address [address] [place] [address] Care Team Providers Care Senior Security Engineer Name Role Phone Pcp, No Primary [...] any time in the past 12 m [facility], were you homeless or living in a retirement (including now)? No 11/18/2024 [facility] Utilities Answer Date Recorded In the [...] drink first t nicolas in the morning (EYE-PIPELINE INTEGRITY ENGINEER) to steady your nerves or to [...] EST Appointment [facility] [address] [place] [address] 03/19/2025 1:45 PM EST Office Visit [facility] [address] [place] [address] Karol Jane MD [address] [facility] [address] [facility] [address] [place] [address] documented as of this encounter Visit Diagnoses Not on filedocumented in this encounter Additional Health Concerns Assessment Noted Time A Body Mass Index follow-up plan has been documented for the patient 11/21/2024 8:58 AM EDT documented as of this encounter Care Teams Senior Security Engineer Relationship Specialty Start Date End Date Pcp, No [address] [place] [address] PCP - General Family Medicine 06/16/23 documented as of this encounter
[2025-01-20 11:54] LABS: Hematocrit 29.8 % (37.0-47.0); Hemoglobin 9.6 g/dL (12.2-16.2); Immature Granulocytes % 0.9 %; Mean Corpuscular HGB Conc 32.2 g/dL (31.8-35.4); Mean Corpuscular Hemoglobin 27.7 pg (27.0-31.2); Mean Corpuscular Volume 85.9 fl (81-99); Nucleated Red Blood Cells % 0 %; Platelet Count 143 K/mm3 (142-424); Red Blood Count 3.47 M/mm3 (4.20-5.40); Red Cell Distribution Width-SD 50.5 fL; White Blood Count 4.4 K/mm3 (4.8-10.8)
[2025-01-20 12:09] LABS: Alanine Aminotransferase 27 U/L (12-78); Albumin Level 4.0 g/dl (3.5-5.0); Albumin/Globulin Ratio 1.1 (1.1-1.8); Alkaline Phosphatase 149 U/L (38-126); Anion Gap 11.5 mEq/L (5-15); Aspartate Amino Transferase 36 U/L (14-36); Bilirubin,Total 0.8 mg/dl (0.2-1.3); Blood Urea Nitrogen 9 mg/dl (7-17); Calcium 9.0 mg/dl (8.4-10.2); Carbon Dioxide 24 mmol/L (22.0-30.0); Chloride 103 mmol/L (98-107); Creatinine,Serum 0.70 mg/dl (0.52-1.04); Estimated Glomerular Filt Rate 90 ml/min (>60); GFR (African American) 109 ML/MIN (>60); Globulin 3.7 g/dL (1.3-3.2); Glucose 106 mg/dl (74-100); Potassium 3.5 mmoL/L (3.5-5.1); Sodium 135 mmol/L (136-145); Total Protein,Serum 7.7 g/dl (6.3-8.2)
== END 2025-01-20 23:59 | disposition home or self-care (01) ==
LOC: INF 11:37
PROVIDERS: PCP Internal Medicine; Visit Provider Internal Medicine Medical Oncology
DX: C56.9 Malignant neoplasm of unspecified ovary (principal); C79.82 Secondary malignant neoplasm of genital organs
CPT/HCPCS: 36415; 80053; 83615; 85025